=== PATIENT | female | born 1975 | race African-American/Black ===

== ENCOUNTER 2018-11-06 08:59 | Inpatient (IN) | payer MEDICARE, OTHER ==
[~2018-11-06] VITALS: Ht 154.9 cm; Wt 82.2 kg
[~2018-11-06 08:59] MED LIST: CARV3.1210 PO; CHOL500050 PO; CLON1TAB11 PO; FOLI1TAB16 PO; LOSA-73 PO; LURA40TA PO; MAGN400T3 PO; OXYC10TA46 PO; OXYC1TAB19 PO; Pantoprazole PO; RIVA20TA2 PO; SUCR1TAB35 PO; TIZA4CAP3 PO
[2018-11-06] MEDS ORDERED: ASPIRIN CHEWABLE 81 MG TABLET. PO ONE (09:15)
[2018-11-06] MEDS ORDERED: ONDANSETRON PF 4 MG/2 ML VIAL. IV ONE (09:15)
--- NOTE | 2018-11-06 09:26 | PHYS DOC ---
Past Medical History Past Medical History: GERD, Hypertension, Other Additional Past Medical Histor: BLOOD CLOTS IN LUNG AND LEGS Past Surgical History: Cholecystectomy, Tubal ligation, Other Additional Past Surgical Histo: GASTRICV BYPASS, STOMACH SURGERY, ABLAtION Alcohol Use: Occasionally Drug Use: None Adult General Chief Complaint Chief Complaint: CHEST PAIN HPI HPI Patient is a 43-year-old female who presents to the emergency department for evaluation. The patient states that yesterday she began expressing some chest pressure, described as "an elephant sitting on my chest". She also is reporting shortness of breath. The chest discomfort does not radiate. 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 She has a prior history of pulmonary embolism, postoperatively, and states that she had been on Xarelto in the past, although she was taken off of the Xarelto by [facility] during her last visit there several weeks ago. She states the shortness of breath that she began experiencing yesterday feel similar to her prior pulmonary embolus and. She denies any vomiting, black or bloody stools, dizziness or lightheadedness. She has not had any pleuritic chest pain. There are no other alleviating or exacerbating factors to her symptoms, except as noted. Review of Systems Review of Systems Constitutional: Denies fever or chills [] Eyes: Denies change in visual acuity, redness, or eye pain [] HENT: Denies nasal congestion or sore throat [] Respiratory: Denies cough or pleuritic pain [] Cardiovascular: No additional information not addressed in HPI [] GI: Denies abdominal pain, vomiting, bloody stools or diarrhea [] : Denies dysuria or hematuria [] Musculoskeletal: Denies back pain or joint pain [] Integument: Denies rash or skin lesions [] Neurologic: Denies headache, focal weakness or sensory changes [] Endocrine: Denies polyuria or polydipsia [] All other systems were reviewed and found to be within normal limits, except as documented in this note. Current Medications Current Medications Current Medications Medications (Trade) Dose Ordered Sig/Alta Start Time Stop Time Status Last Admin Dose Admin Acetaminophen (Tylenol) 650 mg PRN Q4HRS PRN 11/06/18 13:30 UNV Al Hydroxide/Mg Hydroxide (Mylanta Plus Xs) 30 ml PRN DAILY PRN 11/06/18 13:30 UNV Albuterol Sulfate (Ventolin Neb Soln) 2.5 mg PRN Q4HRS PRN 11/06/18 13:30 UNV Aspirin (Children'S Aspirin) 324 mg 1X ONCE 11/06/18 09:15 11/06/18 09:18 DC 11/06/18 10:44 324 MG Carvedilol (Coreg) 3.125 mg BIDWMEALS 11/06/18 17:00 UNV Clonidine HCl (Catapres) 0.1 mg PRN Q6HRS PRN 11/06/18 13:30 UNV Diphenhydramine HCl (Benadryl) 25 mg PRN Q4HRS PRN 11/06/18 13:30 UNV Docusate Sodium (Colace) 100 mg PRN BID PRN 11/06/18 13:30 UNV Folic Acid (Folic Acid) 1 mg DAILY 11/07/18 09:00 UNV Guaifenesin (Robitussin) 200 mg PRN Q4HRS PRN 11/06/18 13:30 UNV Info (CONTRAST GIVEN -- Rx MONITORING) 1 each PRN DAILY PRN 11/06/18 11:45 11/08/18 11:44 Iohexol (Omnipaque 350 Mg/ml) 100 ml 1X ONCE 11/06/18 11:30 11/06/18 11:33 DC Levofloxacin/ Dextrose 100 ml @ 100 mls/hr 1X ONCE 11/06/18 13:15 11/06/18 14:14 Lorazepam (Ativan) 0.5 mg PRN Q4HRS PRN 11/06/18 13:30 UNV Losartan Potassium (Cozaar) 100 mg DAILY 11/07/18 09:00 UNV Lurasidone HCl (Latuda) 40 mg DAILY 11/07/18 09:00 UNV Morphine Sulfate (Morphine Sulfate) 4 mg PRN Q15MIN PRN 11/06/18 09:15 11/07/18 09:14 11/06/18 13:14 4 MG Non-Formulary Medication (Cholecalciferol (Vitamin D3) (Vitamin D3)) 50,000 unit WEEKLY 11/13/18 09:00 UNV Non-Formulary Medication (Magnesium Oxide ) 250 mg DAILY 11/07/18 09:00 UNV Non-Formulary Medication (Rivaroxaban (Xarelto)) 20 mg DAILY 11/07/18 09:00 UNV Non-Formulary Medication (Sucralfate (Carafate)) 1 gm QIDACHS 11/06/18 16:30 UNV Non-Formulary Medication ([Pantoprazole] ) 40 mg BIDAC 11/06/18 16:30 UNV Ondansetron HCl (Zofran) 4 mg PRN Q4HRS PRN 11/06/18 13:30 UNV Zolpidem Tartrate (Ambien) 5 mg PRN QHS PRN 11/06/18 13:30 UNV Allergies Allergies Allergies Coded Allergies Type Severity Reaction Last Updated Verified banana Allergy Severe SWELLING TO MOUTH AND TONGUE 04/20/18 Yes cephalexin Allergy Severe "SWELLING TO MOUTH" 04/20/18 Yes shrimp Allergy Severe SWELLING TO MOUTH AND TONGUE 04/20/18 Yes fentanyl Allergy Intermediate 07/02/18 Yes Physical Exam Physical Exam PHYSICAL EXAM: CONSTITUTIONAL: Well developed, well nourished HEAD: normocephalic, atraumatic EENT: PERRL, EOMI. Conjunctivae normal color, sclerae non-icteric; moist mucous membranes. NECK: Supple, non-tender; no meningismus. LUNGS: Lungs CTA, breathing even and unlabored. Normal air movement. HEART: Regular rate and rhythm, no murmur CHEST: No deformity; non-tender ABDOMEN: The abdomen is soft, and non-tender, no masses or bruits. EXTREM: Normal ROM; no deformity, no calf tenderness. Normal pulses palpable in all extremities. There is bilateral nonpitting pedal edema. SKIN: No rash; no diaphoresis NEURO: Alert; normal speech and cognition; CN's grossly intact; strength grossly intact without focal deficit. BACK: No CVA TTP. Current Patient Data Vital Signs Vital Signs Date Time Temp Pulse Resp B/P (MAP) Pulse Ox O2 Delivery O2 Flow Rate FiO2 11/06/18 13:00 82 15 125/82 (96) 100 Room Air 11/06/18 09:10 97.7 97.7 Lab Values Laboratory Tests Test 11/06/18 09:54 11/06/18 11:13 11/06/18 12:18 White Blood Count 4.1 x10^3/uL (4.0-11.0) Red Blood Count 4.17 x10^6/uL (3.50-5.40) Hemoglobin 12.4 g/dL (12.0-15.5) Hematocrit 38.8 % (36.0-47.0) Mean Corpuscular Volume 93 fL (79-100) Mean Corpuscular Hemoglobin 30 pg (25-35) Mean Corpuscular Hemoglobin Concent 32 g/dL (31-37) Red Cell Distribution Width 16.4 % (11.5-14.5) H Platelet Count 351 x10^3/uL (140-400) Neutrophils (%) (Auto) 51 % (31-73) Lymphocytes (%) (Auto) 41 % (24-48) Monocytes (%) (Auto) 3 % (0-9) Eosinophils (%) (Auto) 2 % (0-3) Basophils (%) (Auto) 3 % (0-3) Neutrophils # (Auto) 2.1 x10^3uL (1.8-7.7) Lymphocytes # (Auto) 1.7 x10^3/uL (1.0-4.8) Monocytes # (Auto) 0.1 x10^3/uL (0.0-1.1) Eosinophils # (Auto) 0.1 x10^3/uL (0.0-0.7) Basophils # (Auto) 0.1 x10^3/uL (0.0-0.2) Prothrombin Time 15.9 SEC (11.7-14.0) H Prothrombin Time INR 1.3 (0.8-1.1) H Sodium Level 135 mmol/L (136-145) L Potassium Level 3.3 mmol/L (3.5-5.1) L Chloride Level 102 mmol/L (98-107) Carbon Dioxide Level 19 mmol/L (21-32) L Anion Gap 14 (6-14) Blood Urea Nitrogen 9 mg/dL (7-20) Creatinine 0.7 mg/dL (0.6-1.0) Estimated GFR (Cockcroft-Gault) 109.5 BUN/Creatinine Ratio 13 (6-20) Glucose Level 170 mg/dL (70-99) H Calcium Level 7.9 mg/dL (8.5-10.1) L Total Bilirubin 3.0 mg/dL (0.2-1.0) H Aspartate Amino Transferase (AST) 159 U/L (15-37) H Alanine Aminotransferase (ALT) 104 U/L (14-59) H Alkaline Phosphatase 165 U/L (46-116) H Creatine Kinase 135 U/L (26-192) Creatine Kinase MB (Mass) 1.1 ng/mL (0.0-3.6) Creatine Kinase MB Relative Index 0.8 % (0-4) Troponin I Quantitative < 0.017 ng/mL (0.000-0.055) QI-Rur-E-Type Natriuretic Peptide 251 pg/mL (0-124) H Total Protein 5.4 g/dL (6.4-8.2) L Albumin 1.9 g/dL (3.4-5.0) L Albumin/Globulin Ratio 0.5 (1.0-1.7) L Lipase 176 U/L (73-393) Urine Collection Type Unknown Urine Color Olga Urine Clarity Hazy Urine pH 7.0 Urine Specific [place] 1.020 Urine Protein Negative mg/dL (NEG-TRACE) Urine Glucose (UA) Negative mg/dL (NEG) Urine Ketones (Stick) Trace mg/dL (NEG) Urine Blood Negative (NEG) Urine Nitrite Negative (NEG) Urine Bilirubin Large (NEG) Urine Urobilinogen Dipstick 4.0 mg/dL (0.2 mg/dL) Urine Leukocyte Esterase Moderate (NEG) Urine RBC 0 /HPF (0-2) Urine WBC >40 /HPF (0-4) Urine Squamous Epithelial Cells Mod /LPF Urine Bacteria Many /HPF (0-FEW) Urine Hyaline Casts Many /HPF Laboratory Tests 11/06/18 09:54 Laboratory Tests 11/06/18 11:13 EKG EKG [Normal sinus rhythm at a rate of 87 beats for minute, normal axis, normal intervals, nonspecific ST/T changes.] Radiology/Procedures Radiology/Procedures [PROCEDURE: PORTABLE CHEST 1V Single view of the chest. 11/06/2018 9:26 AM Indication: CHEST PAIN Comparison: Chest radiograph July 02, 2018 Findings: There is no focal consolidation. There is no pleural effusion or pneumothorax. The cardiomediastinal silhouette and pulmonary vasculature are within normal limits. Degenerative changes of the left shoulder noted, advanced for age. No acute osseous abnormalities are seen. Impression: No evidence of acute cardiopulmonary process. ] Course & Med Decision Making Course & Med Decision Making Pertinent Labs and Imaging studies reviewed. (See chart for details) [1:30 PM:The patient's condition remains stable. I spoke with the hospitalist , who accepted the patient to the hospital for further evaluation and treatment. The patient's heart rate has been variable between 8-105 bpm. Although pulmonary embolism is on the differential diagnosis it is not considered highly likely at this point.] CTA and she was ordered, but the patient's IV blew before she was injected with IV contrast, and the only IV that could be obtained was an external jugular, so a VQ scan will be needed to definitively rule out pulmonary embolism. This will be followed by the admitting team. The patient's bilirubin elevation is new, she has had similar LFT elevations to her current tests in the past. Dragon Disclaimer Dragon Disclaimer This electronic medical record was generated, in whole or in part, using a voice recognition dictation system. Departure Departure Impression: Primary Impression: Chest pain Additional Impression: Elevated bilirubin Disposition: ADMITTED INPATIENT Admitting Physician: Other (Farella) Condition: STABLE Referrals: UNKNOWN PCP NAME (PCP) Problem Qualifiers KATHARINE NUNO MD Nov 06, 2018 09:26
--- NOTE | 2018-11-06 09:45 | RAD ---
Single view of the chest. 11/06/2018 9:26 AM Indication: CHEST PAIN Comparison: Chest radiograph July 02, 2018 Findings: There is no focal consolidation. There is no pleural effusion or pneumothorax. The cardiomediastinal silhouette and pulmonary vasculature are within normal limits. Degenerative changes of the left shoulder noted, advanced for age. No acute osseous abnormalities are seen. Impression: No evidence of acute cardiopulmonary process. Electronically signed by: Toni Taylor MD (11/06/2018 9:42 AM) [id number]
[2018-11-06 10:07] LABS: BASO # 0.1 x10^3/uL (0.0-0.2); BASO % 3 % (0-3); EOS # 0.1 x10^3/uL (0.0-0.7); EOS % 2 % (0-3); HEMATOCRIT 38.8 % (36.0-47.0); HEMOGLOBIN 12.4 g/dL (12.0-15.5); LYMPH # 1.7 x10^3/uL (1.0-4.8); LYMPH % 41 % (24-48); MEAN CORPUSCULAR HEMOGLOBIN 30 pg (25-35); MEAN CORPUSCULAR HGB CONC 32 g/dL (31-37); MEAN CORPUSCULAR VOLUME 93 fL (79-100); MONO # 0.1 x10^3/uL (0.0-1.1); MONO % 3 % (0-9); NEUT # 2.1 x10^3uL (1.8-7.7); NEUT % 51 % (31-73); PLATELET COUNT 351 x10^3/uL (140-400); RED BLOOD COUNT 4.17 x10^6/uL (3.50-5.40); RED CELL DISTRIBUTION WIDTH 16.4 % (11.5-14.5); WHITE BLOOD COUNT 4.1 x10^3/uL (4.0-11.0)
[2018-11-06] MEDS: MORPHINE SULFATE 4 MG/ML VIAL. IV/SQ PRN ×2 (10:44→13:14)
[2018-11-06] MEDS ORDERED: IOHEXOL 350 MG/ML 100 ML VIAL. IV ONE (11:30)
[2018-11-06 11:41] LABS: PROTHROMBIN TIME PATIENT 15.9 SEC (11.7-14.0)
[2018-11-06 11:42] LABS: CALCIUM 7.9 mg/dL (8.5-10.1); CREATININE 0.7 mg/dL (0.6-1.0); GFR 109.5; POTASSIUM 3.3 mmol/L (3.5-5.1)
[2018-11-06] MEDS ORDERED: CONTRAST GIVEN. MC PRN (11:45)
[2018-11-06 11:49] LABS: ALBUMIN 1.9 g/dL (3.4-5.0); ALBUMIN/GLOBULIN RATIO 0.5 (1.0-1.7); TOTAL PROTEIN 5.4 g/dL (6.4-8.2)
[2018-11-06 12:36] LABS: BILIRUBIN,URINE LARGE (NEG); NITRITE,URINE NEGATIVE (NEG); PROTEIN,URINE NEGATIVE (NEG-TRACE)
[2018-11-06 12:43] LABS: CLARITY,URINE HAZY; COLOR,URINE AMBER
[2018-11-06 12:44] LABS: HYALINE CASTS, URINE MANY /HPF; SQUAMOUS EPITHELIAL CELL,UR MOD /LPF
[2018-11-06 12:45] LABS: BACTERIA,URINE MANY /HPF (0-FEW); RBC,URINE 0 /HPF (0-2); WBC,URINE >40 /HPF (0-4)
[2018-11-06] MEDS ORDERED: LORazepam 0.5 MG TABLET PO PRN (13:30)
[2018-11-06] MEDS ORDERED: ACETAMINOPHEN 325 MG TABLET. PO PRN (13:30)
[2018-11-06] MEDS ORDERED: MAG HYDROX/ALUMINUM HYD/SIMETH 30 ML ORAL.SUSP PO PRN (13:30)
[2018-11-06] MEDS ORDERED: diphenhydrAMINE 50 MG/ML VIAL IVP PRN (13:30)
--- NOTE | 2018-11-06 14:40 | PDOC2 ---
BERTA THORPE WILDLIFE TECHNICIAN 11/06/18 1440: CARDIAC CONSULT DATE OF CONSULT Date of Consult DATE: 11/06/18 TIME: 14:15 REASON FOR CONSULT Reason for Consult: Chest pain REFERRING PHYSICIAN Referring Physician: Bea SOURCE Source: Chart review, Patient HISTORY OF PRESENT ILLNESS HISTORY OF PRESENT ILLNESS This is a 43 yo female admitted for complains of chest pain. Reports that she eats once a day and that in the last 2 weeks she has been vomiting even when taking her medications. She has not been able to keep anything down in her stomach for about 2 weeks now. Yesterday morning she woke up with midchest pressure and was SOA. No dizziness or passing out. Verbalized that she has been weak. No jaw tightness or arm discomfort. She is significant for PE and DVT from last yr and also had ulcer in her anastomotic region of her gastric bypass. No prior hx of CAD or arrhythmias. Per hx she has IVC filter and xarelto was taken off few ago and being followed closely by [facility]. PAST MEDICAL HISTORY Past Medical History Cardiovascular: HTN Pulmonary: Pulmonary embolus (past DVT) CENTRAL NERVOUS SYSTEM: Other (None) GI: Peptic Ulcer disease, GERD, protein malnutrition Heme/Onc: Other (chornic anticoagulation) Hepatobiliary: Cholelithiasis, transaminitis Psych: No pertinent hx Musculoskeletal: Other (morbid obesity) Rheumatologic: No pertinent hx Infectious disease: Other (MRSA) ENT: No pertinent hx Renal/: No pertinent hx Endocrine: Diabetes last A1C 6.3 Dermatology: No pertinent hx PAST SURGICAL HISTORY Past Surgical History S/p dorcas-en-Y bypass Past Surgical History: Cholecystectomy, Tubal Ligation FAMILY HISTORY Family History Coronary Artery Disease (father CT at 50s) SOCIAL HISTORY Smoke: No ALCOHOL: none Drugs: None Lives: with Family CURRENT MEDICATIONS CURRENT MEDICATIONS Current Medications Medications (Trade) Dose Ordered Sig/Alta Route PRN Reason Start Time Stop Time Status Last Admin Dose Admin Aspirin (Children'S Aspirin) 324 mg 1X ONCE PO 11/06/18 09:15 11/06/18 09:18 DC 11/06/18 10:44 Morphine Sulfate (Morphine Sulfate) 4 mg PRN Q15MIN PRN IV/SQ PAIN GREATER THAN /10 11/06/18 09:15 11/07/18 09:14 11/06/18 13:14 Ondansetron HCl (Zofran) 4 mg 1X ONCE IV 11/06/18 09:15 11/06/18 09:18 DC 11/06/18 10:44 ALLERGIES ALLERGIES: Coded Allergies: banana (Verified Allergy, Severe, SWELLING TO MOUTH AND TONGUE, 04/20/18) cephalexin (Verified Allergy, Severe, "SWELLING TO MOUTH", 04/20/18) shrimp (Verified Allergy, Severe, SWELLING TO MOUTH AND TONGUE, 04/20/18) fentanyl (Verified Allergy, Intermediate, 07/02/18) ROS Review of System 14 point ROS evaluated with pertinent positives noted per HPI PHYSICAL EXAM General: Alert, Oriented X3, Cooperative, No acute distress HEENT: Atraumatic, Mucous membr. moist/pink Lungs: Clear to auscultation, Normal air movement Heart: Regular rate (SR), Normal S1, Normal S2, Other (2/6 systolic murmur to LLS border) Abdomen: Soft, No tenderness Extremities: No cyanosis, No edema Skin: No breakdown Neuro: Normal speech, Sensation intact Psych/Mental Status: Mental status NL, Mood NL MUSCULOSKELETAL: Osteoarthritic changes both hands VITALS VITALS Vital Signs Date Time Temp Pulse Resp B/P (MAP) Pulse Ox O2 Delivery O2 Flow Rate FiO2 11/06/18 13:00 82 15 125/82 (96) 100 Room Air 11/06/18 09:10 97.7 97.7 LABS Lab: Laboratory Tests Test 11/06/18 09:54 11/06/18 11:13 11/06/18 12:18 White Blood Count 4.1 x10^3/uL (4.0-11.0) Red Blood Count 4.17 x10^6/uL (3.50-5.40) Hemoglobin 12.4 g/dL (12.0-15.5) Hematocrit 38.8 % (36.0-47.0) Mean Corpuscular Volume 93 fL (79-100) Mean Corpuscular Hemoglobin 30 pg (25-35) Mean Corpuscular Hemoglobin Concent 32 g/dL (31-37) Red Cell Distribution Width 16.4 % (11.5-14.5) Platelet Count 351 x10^3/uL (140-400) Neutrophils (%) (Auto) 51 % (31-73) Lymphocytes (%) (Auto) 41 % (24-48) Monocytes (%) (Auto) 3 % (0-9) Eosinophils (%) (Auto) 2 % (0-3) Basophils (%) (Auto) 3 % (0-3) Neutrophils # (Auto) 2.1 x10^3uL (1.8-7.7) Lymphocytes # (Auto) 1.7 x10^3/uL (1.0-4.8) Monocytes # (Auto) 0.1 x10^3/uL (0.0-1.1) Eosinophils # (Auto) 0.1 x10^3/uL (0.0-0.7) Basophils # (Auto) 0.1 x10^3/uL (0.0-0.2) Prothrombin Time 15.9 SEC (11.7-14.0) Prothromb Time International Ratio 1.3 (0.8-1.1) Sodium Level 135 mmol/L (136-145) Potassium Level 3.3 mmol/L (3.5-5.1) Chloride Level 102 mmol/L (98-107) Carbon Dioxide Level 19 mmol/L (21-32) Anion Gap 14 (6-14) Blood Urea Nitrogen 9 mg/dL (7-20) Creatinine 0.7 mg/dL (0.6-1.0) Estimated GFR (Cockcroft-Gault) 109.5 BUN/Creatinine Ratio 13 (6-20) Glucose Level 170 mg/dL (70-99) Calcium Level 7.9 mg/dL (8.5-10.1) Total Bilirubin 3.0 mg/dL (0.2-1.0) Aspartate Amino Transf (AST/SGOT) 159 U/L (15-37) Alanine Aminotransferase (ALT/SGPT) 104 U/L (14-59) Alkaline Phosphatase 165 U/L (46-116) Creatine Kinase 135 U/L (26-192) Creatine Kinase MB (Mass) 1.1 ng/mL (0.0-3.6) Creatine Kinase MB Relative Index 0.8 % (0-4) Troponin I Quantitative < 0.017 ng/mL (0.000-0.055) VD-Eij-A-Type Natriuretic Peptide 251 pg/mL (0-124) Total Protein 5.4 g/dL (6.4-8.2) Albumin 1.9 g/dL (3.4-5.0) Albumin/Globulin Ratio 0.5 (1.0-1.7) Lipase 176 U/L (73-393) Urine Collection Type Unknown Urine Color Olga Urine Clarity Hazy Urine pH 7.0 Urine Specific [place] 1.020 Urine Protein Negative mg/dL (NEG-TRACE) Urine Glucose (UA) Negative mg/dL (NEG) Urine Ketones (Stick) Trace mg/dL (NEG) Urine Blood Negative (NEG) Urine Nitrite Negative (NEG) Urine Bilirubin Large (NEG) Urine Urobilinogen Dipstick 4.0 mg/dL (0.2 mg/dL) Urine Leukocyte Esterase Moderate (NEG) Urine RBC 0 /HPF (0-2) Urine WBC >40 /HPF (0-4) Urine Squamous Epithelial Cells Mod /LPF Urine Bacteria Many /HPF (0-FEW) Urine Hyaline Casts Many /HPF ECHOCARDIOGRAM ECHOCARDIOGRAM <Conclusion> The left ventricular systolic function is normal. The Ejection Fraction is 60-65%. There is normal LV segmental wall motion. Trace tricuspid valve regurgitation. There is no evidence of significant pericardial effusion. DATE: 04/19/18 1014 ASSESSMENT/PLAN ASSESSMENT/PLAN 1. Chest pain: trop nml. EKG SR no changes. Doubt ACS. Possibly GI with potential PE 2. Persistent vomiting (2 weeks) with Hx of Dorcas-en-Y w/ anastomotic ulcer ( noted on 03/2018 via EGD) 3. Abnormal V/Q scan: has IVC filter per hx. 4. Hepatic steatosis with persistent transaminitis 5. Chronic protein malnutrition 6. UTI? 7. Hx of PE/DVT(LE): (DVT last noted bilaterally on (06/2018) Recommendations 1. V/Q done to failed IV access, CTA chest now pending. 2. Limited TTE and note EF and RV 3. Consult GI. Empiric heparin per pulmonary LUCIA DENG MD 11/06/18 2350: CARDIAC CONSULT ASSESSMENT/PLAN ASSESSMENT/PLAN Pt. seen and examined. Agree with above FLUMER note. Non-cardiac chest pain. normal EF by echo, no effusion Intermediate PE with DVT's and prior IVC filter. Supportive care from CV standpoint. Await CT chest, although this may provide diagnosis, may not change mgmt. Will follow along BERTA THORPE APRN Nov 06, 2018 14:40 LUCIA DENG MD Nov 06, 2018 23:50
--- NOTE | 2018-11-06 14:45 | PDOC1 ---
History and Physical Date of Admission Date of Admission November 06, 2018 Identification/Chief Complaint Chief Complaint My chest hurbritney Source Source: Chart review, Patient History of Present Illness History of Present Illness Patient is a 43-year-old female with past medical history of pulmonary embolism who is currently not on anticoagulation. She was in her usual state of health until the day prior to her admission when she started complaining of midsternal chest discomfort. The patient denied any radiation to the jaw or the arm. The patient denied palpitations no shortness of breath has been reported no syncopal episodes no nausea vomiting or sensation of impending doom was reported by the patient and the beginning of her discomfort. The patient was sitting and not performing strenuous exercises at the beginning of her symptoms. The episodes have been on and off over the last 24 hours at 10-15 minute intervals. The patient denies recent upper respiratory tract infection symptoms no coughing no sneezing no cold-like symptoms no neck stiffness no headache no blurred vision has been reported. Of noticed that patient has a history of gastric bypass and has as a consequence unfortunately GERD. The patient was diagnosed with a left lower extremity thrombosis in . She also was told that she had pulmonary emboli at that institution and she gives history of having an IVC filter that she places up in her heart. When asked about this she said that this was placed at . Unfortunately don't have records for review. At the time my evaluation the patient is in no apparent distress, she got concerned and home since the symptoms felt ramus is same as her episode where she was diagnosed with a thrombosis requiring anticoagulation. She has not been on Xarelto for at least 2 months. No acute distress at the time my evaluation is noted. She is being admitted the request of the ER for evaluation of this chest discomfort, serendipitously the patient was found to have a slightly elevated d-dimer which (CT angiogram by the ER physician unfortunately patient was not able to complete testing she is not hypoxemic another serendipitous finding was mildly elevation of bilirubin to 3 her transaminitis was pretty much her baseline and actually somewhat improved compared to previous visits to our institution. Most likely is a consequence of her body habitus Past Medical History Cardiovascular: HTN Pulmonary: Pulmonary embolus CENTRAL NERVOUS SYSTEM: Other GI: Peptic Ulcer disease Heme/Onc: Other Hepatobiliary: Cholelithiasis Psych: No pertinent hx Rheumatologic: No pertinent hx Infectious disease: Other Renal/: No pertinent hx Past Surgical History Past Surgical History: , Other Family History Family History: Coronary Artery Disease Family History: Parent Social History Smoke: No ALCOHOL: none Drugs: None Current Problem List Problem List Problems Medical Problems: (1) Chest pain Status: Acute (2) Elevated bilirubin Status: Acute Current Medications Current Medications Current Medications Medications (Trade) Dose Ordered Sig/Alta Start Time Stop Time Status Last Admin Dose Admin Acetaminophen (Tylenol) 650 mg PRN Q4HRS PRN 11/06/18 13:30 Al Hydroxide/Mg Hydroxide (Mylanta Plus Xs) 30 ml PRN DAILY PRN 11/06/18 13:30 Albuterol Sulfate (Ventolin Neb Soln) 2.5 mg PRN Q4HRS PRN 11/06/18 13:30 Aspirin (Children'S Aspirin) 324 mg 1X ONCE 11/06/18 09:15 11/06/18 09:18 DC 11/06/18 10:44 324 MG Carvedilol (Coreg) 3.125 mg BIDWMEALS 11/06/18 17:00 Clonidine HCl (Catapres) 0.1 mg PRN Q6HRS PRN 11/06/18 13:30 Diphenhydramine HCl (Benadryl) 25 mg PRN Q4HRS PRN 11/06/18 13:30 Docusate Sodium (Colace) 100 mg PRN BID PRN 11/06/18 13:30 Ergocalciferol (Vitamin D2) 50,000 unit WEEKLY 11/06/18 15:00 Folic Acid (Folic Acid) 1 mg DAILY 11/06/18 15:00 Guaifenesin (Robitussin) 200 mg PRN Q4HRS PRN 11/06/18 13:30 Info (Anti-Coagulation Monitoring By Pharmacy) 1 each PRN DAILY PRN 11/06/18 14:15 Info (CONTRAST GIVEN -- Rx MONITORING) 1 each PRN DAILY PRN 11/06/18 11:45 11/08/18 11:44 Iohexol (Omnipaque 350 Mg/ml) 100 ml 1X ONCE 11/06/18 11:30 11/06/18 11:33 DC Levofloxacin/ Dextrose 100 ml @ 100 mls/hr 1X ONCE 11/06/18 13:15 11/06/18 14:14 DC Lorazepam (Ativan) 0.5 mg PRN Q4HRS PRN 11/06/18 13:30 Losartan Potassium (Cozaar) 100 mg DAILY 11/06/18 15:00 Lurasidone HCl (Latuda) 40 mg DAILY 11/06/18 15:00 Magnesium Oxide (Magnesium Oxide) 200 mg DAILY 11/06/18 15:00 Morphine Sulfate (Morphine Sulfate) 4 mg PRN Q15MIN PRN 11/06/18 09:15 11/07/18 09:14 11/06/18 13:14 4 MG Ondansetron HCl (Zofran) 4 mg PRN Q4HRS PRN 11/06/18 13:30 Pantoprazole Sodium (Protonix) 40 mg BIDAC 11/06/18 16:30 Rivaroxaban (Xarelto) 20 mg DAILYWSUP 11/06/18 17:00 Sucralfate (Carafate) 1 gm QIDACHS 11/06/18 16:30 Zolpidem Tartrate (Ambien) 5 mg PRN QHS PRN 11/06/18 13:30 Allergies Allergies Allergies Coded Allergies Type Severity Reaction Last Updated Verified banana Allergy Severe SWELLING TO MOUTH AND TONGUE 04/20/18 Yes cephalexin Allergy Severe "SWELLING TO MOUTH" 04/20/18 Yes shrimp Allergy Severe SWELLING TO MOUTH AND TONGUE 04/20/18 Yes fentanyl Allergy Intermediate 07/02/18 Yes ROS Review of System CONSTITUTIONAL: No fever or chills EYES: No recent changes SKIN: No rash or itching CARDIOVASCULAR: Pertinent for chest pain, no syncope, palpitations, or edema RESPIRATORY: No SOB or cough GASTROINTESTINAL: No nausea, vomiting or abdominal pain NEUROLOGICAL: No headaches or weakness ENDOCRINE: No cold or heat intolerance GENITOURINARY: No urgency or frequency of urination MUSCULOSKELETAL: No back pain or joint pain LYMPHATICS: No enlarged lymph nodes PSYCHIATRIC: No anxiety or depression Physical Exam Physical Exam GEN.: No apparent distress. Alert and oriented. HEENT: Head is normocephalic, atraumatic NECK: Supple. LUNGS: Clear to auscultation. HEART: RRR, S1, S2 present. Peripheral pulses intact ABDOMEN: Soft, nontender. Positive bowel sounds. EXTREMITIES: Without any cyanosis. NEUROLOGIC: Normal speech, normal tone PSYCHIATRIC: Normal affect, normal mood. SKIN: No ulcerations Vitals Vitals Vital Signs Date Time Temp Pulse Resp B/P (MAP) Pulse Ox O2 Delivery O2 Flow Rate FiO2 11/06/18 14:00 86 14 118/76 (90) 98 Room Air 11/06/18 09:10 97.7 97.7 Labs Labs Laboratory Tests Test 11/06/18 09:54 11/06/18 11:13 11/06/18 12:18 White Blood Count 4.1 x10^3/uL (4.0-11.0) Red Blood Count 4.17 x10^6/uL (3.50-5.40) Hemoglobin 12.4 g/dL (12.0-15.5) Hematocrit 38.8 % (36.0-47.0) Mean Corpuscular Volume 93 fL (79-100) Mean Corpuscular Hemoglobin 30 pg (25-35) Mean Corpuscular Hemoglobin Concent 32 g/dL (31-37) Red Cell Distribution Width 16.4 % (11.5-14.5) Platelet Count 351 x10^3/uL (140-400) Neutrophils (%) (Auto) 51 % (31-73) Lymphocytes (%) (Auto) 41 % (24-48) Monocytes (%) (Auto) 3 % (0-9) Eosinophils (%) (Auto) 2 % (0-3) Basophils (%) (Auto) 3 % (0-3) Neutrophils # (Auto) 2.1 x10^3uL (1.8-7.7) Lymphocytes # (Auto) 1.7 x10^3/uL (1.0-4.8) Monocytes # (Auto) 0.1 x10^3/uL (0.0-1.1) Eosinophils # (Auto) 0.1 x10^3/uL (0.0-0.7) Basophils # (Auto) 0.1 x10^3/uL (0.0-0.2) Prothrombin Time 15.9 SEC (11.7-14.0) Prothromb Time International Ratio 1.3 (0.8-1.1) Sodium Level 135 mmol/L (136-145) Potassium Level 3.3 mmol/L (3.5-5.1) Chloride Level 102 mmol/L (98-107) Carbon Dioxide Level 19 mmol/L (21-32) Anion Gap 14 (6-14) Blood Urea Nitrogen 9 mg/dL (7-20) Creatinine 0.7 mg/dL (0.6-1.0) Estimated GFR (Cockcroft-Gault) 109.5 BUN/Creatinine Ratio 13 (6-20) Glucose Level 170 mg/dL (70-99) Calcium Level 7.9 mg/dL (8.5-10.1) Total Bilirubin 3.0 mg/dL (0.2-1.0) Aspartate Amino Transf (AST/SGOT) 159 U/L (15-37) Alanine Aminotransferase (ALT/SGPT) 104 U/L (14-59) Alkaline Phosphatase 165 U/L (46-116) Creatine Kinase 135 U/L (26-192) Creatine Kinase MB (Mass) 1.1 ng/mL (0.0-3.6) Creatine Kinase MB Relative Index 0.8 % (0-4) Troponin I Quantitative < 0.017 ng/mL (0.000-0.055) BC-Lgk-J-Type Natriuretic Peptide 251 pg/mL (0-124) Total Protein 5.4 g/dL (6.4-8.2) Albumin 1.9 g/dL (3.4-5.0) Albumin/Globulin Ratio 0.5 (1.0-1.7) Lipase 176 U/L (73-393) Urine Collection Type Unknown Urine Color Olga Urine Clarity Hazy Urine pH 7.0 Urine Specific [place] 1.020 Urine Protein Negative mg/dL (NEG-TRACE) Urine Glucose (UA) Negative mg/dL (NEG) Urine Ketones (Stick) Trace mg/dL (NEG) Urine Blood Negative (NEG) Urine Nitrite Negative (NEG) Urine Bilirubin Large (NEG) Urine Urobilinogen Dipstick 4.0 mg/dL (0.2 mg/dL) Urine Leukocyte Esterase Moderate (NEG) Urine RBC 0 /HPF (0-2) Urine WBC >40 /HPF (0-4) Urine Squamous Epithelial Cells Mod /LPF Urine Bacteria Many /HPF (0-FEW) Urine Hyaline Casts Many /HPF Laboratory Tests Test 11/06/18 09:54 11/06/18 11:13 11/06/18 12:18 White Blood Count 4.1 x10^3/uL (4.0-11.0) Red Blood Count 4.17 x10^6/uL (3.50-5.40) Hemoglobin 12.4 g/dL (12.0-15.5) Hematocrit 38.8 % (36.0-47.0) Mean Corpuscular Volume 93 fL (79-100) Mean Corpuscular Hemoglobin 30 pg (25-35) Mean Corpuscular Hemoglobin Concent 32 g/dL (31-37) Red Cell Distribution Width 16.4 % (11.5-14.5) Platelet Count 351 x10^3/uL (140-400) Neutrophils (%) (Auto) 51 % (31-73) Lymphocytes (%) (Auto) 41 % (24-48) Monocytes (%) (Auto) 3 % (0-9) Eosinophils (%) (Auto) 2 % (0-3) Basophils (%) (Auto) 3 % (0-3) Neutrophils # (Auto) 2.1 x10^3uL (1.8-7.7) Lymphocytes # (Auto) 1.7 x10^3/uL (1.0-4.8) Monocytes # (Auto) 0.1 x10^3/uL (0.0-1.1) Eosinophils # (Auto) 0.1 x10^3/uL (0.0-0.7) Basophils # (Auto) 0.1 x10^3/uL (0.0-0.2) Prothrombin Time 15.9 SEC (11.7-14.0) Prothromb Time International Ratio 1.3 (0.8-1.1) Sodium Level 135 mmol/L (136-145) Potassium Level 3.3 mmol/L (3.5-5.1) Chloride Level 102 mmol/L (98-107) Carbon Dioxide Level 19 mmol/L (21-32) Anion Gap 14 (6-14) Blood Urea Nitrogen 9 mg/dL (7-20) Creatinine 0.7 mg/dL (0.6-1.0) Estimated GFR (Cockcroft-Gault) 109.5 BUN/Creatinine Ratio 13 (6-20) Glucose Level 170 mg/dL (70-99) Calcium Level 7.9 mg/dL (8.5-10.1) Total Bilirubin 3.0 mg/dL (0.2-1.0) Aspartate Amino Transf (AST/SGOT) 159 U/L (15-37) Alanine Aminotransferase (ALT/SGPT) 104 U/L (14-59) Alkaline Phosphatase 165 U/L (46-116) Creatine Kinase 135 U/L (26-192) Creatine Kinase MB (Mass) 1.1 ng/mL (0.0-3.6) Creatine Kinase MB Relative Index 0.8 % (0-4) Troponin I Quantitative < 0.017 ng/mL (0.000-0.055) EG-Kqz-I-Type Natriuretic Peptide 251 pg/mL (0-124) Total Protein 5.4 g/dL (6.4-8.2) Albumin 1.9 g/dL (3.4-5.0) Albumin/Globulin Ratio 0.5 (1.0-1.7) Lipase 176 U/L (73-393) Urine Collection Type Unknown Urine Color Olga Urine Clarity Hazy Urine pH 7.0 Urine Specific [place] 1.020 Urine Protein Negative mg/dL (NEG-TRACE) Urine Glucose (UA) Negative mg/dL (NEG) Urine Ketones (Stick) Trace mg/dL (NEG) Urine Blood Negative (NEG) Urine Nitrite Negative (NEG) Urine Bilirubin Large (NEG) Urine Urobilinogen Dipstick 4.0 mg/dL (0.2 mg/dL) Urine Leukocyte Esterase Moderate (NEG) Urine RBC 0 /HPF (0-2) Urine WBC >40 /HPF (0-4) Urine Squamous Epithelial Cells Mod /LPF Urine Bacteria Many /HPF (0-FEW) Urine Hyaline Casts Many /HPF VTE Prophylaxis Ordered VTE Prophylaxis Devices: Yes VTE Pharmacological Prophylaxi: Yes Assessment/Plan Assessment/Plan Chest pain rule out acute coronary syndrome History of pulmonary embolism last year currently off anticoagulation History of IVC filter placement Obesity with BMI of 34 Transaminitis most likely secondary to steatohepatitis Mild bilirubinemia Hypokalemia and hyponatremia Plan: Admit patient to the recovery vascular floor Trend troponins We have ordered an echocardiogram to assess for LV dysfunction Resume home medications follow labs in the morning Repeat labs in the a.m. Resume home medications once available for review DVT prophylaxis with heparin COY HOLDEN MD Nov 06, 2018 14:45
[2018-11-06] MEDS: LURASIDONE 40 MG TABLET. PO SCH (15:00)
[2018-11-06] MEDS: LOSARTAN POTASSIUM 50 MG TABLET. PO SCH (15:00)
[2018-11-06] MEDS: ERGOCALCIFEROL (VITAMIN D2) 50,000 UNIT CAPSULE. PO SCH (15:00)
[2018-11-06] MEDS ORDERED: POTASSIUM CHLORIDE 20 MEQ/15 ML ORAL LIQUID. PEG ONE (15:00)
[2018-11-06] MEDS: MAGNESIUM OXIDE 400 MG TABLET PO SCH (15:00)
[2018-11-06] MEDS: FOLIC ACID 1 MG TABLET. PO SCH (15:00)
--- NOTE | 2018-11-06 15:08 | RAD ---
NUCLEAR MEDICINE VENTILATION PERFUSION SCAN History: Dyspnea, history of DVT. Comparison: AP chest, earlier same day. VQ scan 07/03/2018. Technique: Patient initially ventilated with 25 mCi of xenon-133 gas. Anterior and posterior imaging of the lungs during initial breath-hold, equilibrium and, washout phase images is performed. Perfusion portion performed after intravenous administration of 5.5 mCi Technetium 99m MAA. Multiple projection planar images of the lungs were obtained. Findings: The initial breath-hold ventilation images are relatively homogeneous. Image appears count poor. There is no retention of tracer on the washout phase images. Perfusion images are homogeneous. There is a moderate-sized mismatched segmental perfusion defect in the superior segment of the left lower lobe. This defect was present on prior study and may be chronic. This suggests the possibility of acute pulmonary embolus is less likely. IMPRESSION: Intermediate probability for pulmonary embolus. Please see above discussion. Electronically signed by: Vic Marlow MD (11/06/2018 3:05 PM) [id number]
[2018-11-06 15:54] VITALS: BP 123/73
--- NOTE | 2018-11-06 16:02 | EKG ---
[address] [place] [address] Test Date: 2018-11-06 Test Time: 09:25:56 Pat Name: MADELEINE HELM Department: Room: 262 1 Gender: F Record Changer: : 1975 Requested By: KATHARINE NUNO Order Number: [id number] Reading MD: Alverto Araujo MD Measurements Intervals [place] Rate: 87 P: 34 HI: 144 QRS: 5 QRSD: 86 T: -14 QT: 388 QTc: 467 Interpretive Statements SINUS RHYTHM NON-SPECIFIC ST/T CHANGES Electronically Signed On 11-10-2018 13:10:54 CDT by Alverto Araujo MD
[2018-11-06] MEDS ORDERED: HEPARIN for IV BOLUS 10,000 UNIT/10 ML VIAL. IV ONE (16:30)
[2018-11-06] MEDS ORDERED: HEPARIN 25,000UTS/500ML PREMIX 500 ML IV PRN ×2 (16:30)
[2018-11-06] MEDS ORDERED: HEPARIN for IV BOLUS 10,000 UNIT/10 ML VIAL. IV PRN ×2 (16:30)
[2018-11-06] MEDS ORDERED: RIVAROXABAN 10 MG TABLET. PO SCH (17:00)
[2018-11-06] MEDS: CARVEDILOL 3.125 MG TABLET. PO SCH (17:09)
[2018-11-06] MEDS: SUCRALFATE 1 GM TABLET. PO SCH ×2 (17:09→21:00)
[2018-11-06] MEDS: PANTOPRAZOLE 40 MG TABLET.DR. PO SCH (17:09)
[2018-11-06] MEDS: ONDANSETRON PF 4 MG/2 ML VIAL. IV PRN (17:10)
[2018-11-06 19:50] VITALS: BP 155/90
[2018-11-06] MEDS: MORPHINE SULFATE 2 MG/ML VIAL. IV PRN ×2 (20:17→23:58)
[2018-11-06 22:45] VITALS: BP 118/81
--- NOTE | 2018-11-06 22:55 | RAD ---
CHEST AP ONLY History: PICC PLACEMENT Comparison: Exam earlier the same day Findings: Single view of the chest is submitted. There is now a right upper extremity PICC with the tip in the region of the mid aspect of the superior vena cava. There is no pneumothorax or fluid, lobar infiltrate. Heart size is stable. Impression: 1. There is now a right upper extremity PICC. Electronically signed by: Feliciano Salazar MD (11/06/2018 10:52 PM) [facility]
--- NOTE | 2018-11-06 23:25 | RAD ---
Bilateral Lower Extremity Venous Doppler Ultrasound History: Possible PE leg swelling history of prior DVT patient on blood thinners Comparison: None Procedure: Color flow, duplex, spectral analysis and 2D images are obtained with and without compression in the area of the common femoral vein, superficial femoral vein - femoral vein junction, main femoral vein (superficial femoral vein) and popliteal vein. Veins of the proximal calf are also imaged. Findings: The study is technically limited by large body habitus. There is a duplicated SFV on the right mid and distal. There is a nonocclusive thrombus in the one of the 2 right distal SFV and right popliteal vein. There is nonocclusive thrombus in the left SFA distally and in the popliteal vein. There is normal duplex flow, color flow and compressibility of all remaining visualized vein segments. Impression: Study is positive for bilateral DVTs. Electronically signed by: Dusty Colon III, MD (11/06/2018 11:22 PM) [facility]
[2018-11-07 01:12] LABS: BILIRUBIN,URINE MODERATE (NEG); CLARITY,URINE CLEAR; COLOR,URINE AMBER; NITRITE,URINE POSITIVE (NEG); PH,URINE 7.5; PROTEIN,URINE NEGATIVE (NEG-TRACE)
[2018-11-07 01:21] LABS: BACTERIA,URINE MANY /HPF (0-FEW); RBC,URINE 0 /HPF (0-2); SQUAMOUS EPITHELIAL CELL,UR FEW /LPF
--- NOTE | 2018-11-07 01:53 | RAD ---
INDICATION: SOB; EVAL FOR PE; OMNI 350, 75ML COMPARISON: March 2018 TECHNIQUE: Axial CT images obtained through the chest. Intravenous contrast utilized. Angiogram 3D images processed per protocol. One or more of the following individualized dose reduction techniques were utilized for this examination: 1. Automated exposure control; 2. Adjustment of the mA and/or kV according to patient size; 3. Use of iterative reconstruction technique. FINDINGS: Partially visualized liver is very low density. Partial visualization of inferior vena cava filter. Postoperative changes to the stomach. Portion of ascending thoracic aorta is obscured by motion but no aneurysm seen in visualized portions. Degenerative changes the spine. Mild patchy groundglass opacity left upper lung. No evidence of pneumothorax. Severe degenerative changes left shoulder. There are some linear filling defects in the bilateral pulmonary arteries. IMPRESSION: Repeat demonstration of some linear filling defects in the bilateral pulmonary arteries which could be secondary to old recanalized embolus. Liver is low-attenuation. Nonspecific but can be seen with fatty infiltration. Mild patchy groundglass opacity in left lung. Could be secondary to small airway inflammation Electronically signed by: Fab Rand MD (11/07/2018 1:50 AM) [facility]
[2018-11-07] MEDS ORDERED: IOHEXOL 350 MG/ML 100 ML VIAL. ONE (02:38)
[2018-11-07 02:47] VITALS: BP 123/81
[2018-11-07] MEDS: MORPHINE SULFATE 2 MG/ML VIAL. IV PRN ×5 (03:54→23:48)
[2018-11-07 07:37] VITALS: BP 186/95
[2018-11-07] MEDS: FOLIC ACID 1 MG TABLET. PO SCH (08:21)
[2018-11-07] MEDS: MAGNESIUM OXIDE 400 MG TABLET PO SCH (08:21)
[2018-11-07] MEDS: LOSARTAN POTASSIUM 50 MG TABLET. PO SCH (08:21)
[2018-11-07] MEDS: CARVEDILOL 3.125 MG TABLET. PO SCH ×2 (08:21→18:19)
[2018-11-07] MEDS: SUCRALFATE 1 GM TABLET. PO SCH ×5 (08:22→20:58)
[2018-11-07] MEDS: PANTOPRAZOLE 40 MG TABLET.DR. PO SCH ×2 (08:22→18:20)
[2018-11-07] MEDS: LURASIDONE 40 MG TABLET. PO SCH (08:22)
--- NOTE | 2018-11-07 08:22 | RAD ---
Indication:Nausea, vomiting TRANSAMINITIS TECHNIQUE: Grayscale, color Doppler and spectral waveform is of the abdomen obtained. COMPARISON:None FINDINGS: Pancreas is not visualized during bowel gas. IVC is patent. Main portal vein is patent. Liver is mildly enlarged measuring 19 cm in craniocaudal dimension with diffusely increased echogenicity and decreased through transmission. CBD is suboptimally visualized but approximately measures 6 mm in diameter. Status post cholecystectomy. Right kidney measures 11 cm in length without hydronephrosis. Spleen measures 7.5 cm in length and is normal in size. Left kidney is not visualized due to overlying bowel gas. IMPRESSION: 1. Mild hepatomegaly with hepatic steatosis. Electronically signed by: Domo Tovar DO (11/07/2018 8:19 AM) [facility]
[2018-11-07] MEDS: ONDANSETRON PF 4 MG/2 ML VIAL. IV PRN ×2 (08:24→18:20)
--- NOTE | 2018-11-07 10:01 | CONS ---
DATE OF CONSULTATION: ATTENDING PHYSICIAN: Dr. Figueredo. REASON FOR CONSULTATION: Pulmonary embolism. HISTORY OF PRESENT ILLNESS: The patient is a 43-year-old female who has history of pulmonary embolism and DVT. According to her history, she said it was diagnosed at in June of last year after her gastric bypass surgery. The patient states that she has been followed over there and she was on Xarelto until 2 months ago when she stopped it. She has an IVC filter. When I asked her the reason for putting the IVC filter, she was not so clear, but it appears that it may be related to GI bleed and she probably had an anastomotic ulcer after her bypass surgery. The patient was brought into the hospital with complaint of some chest discomfort, which was midsternal. She says she has not been eating well and her appetite is lot less, as a result she is weak and not ambulating well either. She denies any significant shortness of breath. No cough, no fever, no chills. No lower extremity swelling. She underwent imaging study, which initially had a V/Q scan, which showed a mismatch moderate size perfusion defect in the superior segment of the left lower lobe. Her venous Dopplers of the lower extremity showed nonocclusive thrombus on the right as well as on the left lower extremity. She then underwent CTA chest, which was reviewed by me with the radiologist and it shows again an unchanged linear filling defects in the bilateral pulmonary arteries distally. The patient was started on heparin. I have been asked to see her for further evaluation. She denies any history of hormone replacement. She has no history of known cancers. PAST MEDICAL HISTORY: History of pulmonary embolism, history of DVT, history of IVC filter. No hypercoagulable state. History of peptic ulcer disease. PAST SURGICAL HISTORY: and gastric bypass surgery. REVIEW OF SYSTEMS: Twelve-point system obtained. Pertinent positives discussed in my history of present illness, otherwise noncontributory. All systems that were negative were reviewed as well. SOCIAL HISTORY: Denies any tobacco use. MEDICATIONS: All reviewed, as listed in the MRAD. PHYSICAL EXAMINATION: VITAL SIGNS: Stable except for blood pressure on the high side. Pulse ox 95% on room air, afebrile. HEENT: Sclerae nonicteric. NECK: Supple. LUNGS: Clear. CARDIOVASCULAR: Regular rate. ABDOMEN: Soft, obese. EXTREMITIES: With no pitting edema. LABORATORY DATA: Reviewed. White cell count 4.1, hemoglobin 12.4. BUN is 9 and creatinine 0.7. IMPRESSION: 1. The patient with history of pulmonary embolism and deep venous thrombosis, now comes in with chest pain, which is probably related to her anastomotic ulcer. The CT angiogram and V/Q scan have been reviewed and do not show any new blood clot. The CTA shows chronic linear clot and the V/Q scan shows mismatched defect in the left lower lobe. The venous Doppler shows nonocclusive thrombus. 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 We need to closely monitor for any anemia or bleeding while on anticoagulation. 2. No history of hypercoagulable state. 3. Morbid obesity with decreased ambulation. 4. Loss of appetite secondary to ulcer, resulting in decreased oral intake. RECOMMENDATIONS: 1. Discontinue heparin and start her on Xarelto. 2. I would recommend to have the patient follow up with [facility] where she has been regularly followed up and make future recommendation regarding continuation of Xarelto. 3. Consider GI consult regarding her poor appetite and history of ulcer. 4. Increase ambulation. 5. Weight loss is strongly emphasized. 6. Discussed with RN. GERMÁN COLEMAN MD DR: ARELY/shellie JOB#: [id number] / [id number]
--- NOTE | 2018-11-07 10:02 | CARD ---
MR#: [id number] Date of Study: 11/06/2018 Ordering Physician: BERTA THORPE, Referring Physician: COY HOLDEN, Tech: Sheree Cardenas APPROVED REPORT EXAM: Two-dimensional and M-mode echocardiogram with Doppler and color Doppler. Other Information Quality : AverageHR: 99bpm INDICATION Chest Pain Pulmonary Embolism RISK FACTORS Hypertension 2D DIMENSIONS Left Atrium(2D)2.4 (1.6-4.0cm)IVSd1.2 (0.7-1.1cm) Aortic Root(2D)2.3 (2.0-3.7cm)LVDd2.9 (3.9-5.9cm) LVOT Diameter2.0 (1.8-2.4cm)PWd1.0 (0.7-1.1cm) LVDs2.1 (2.5-4.0cm)FS (%) 33.1 % SV25.2 mlLVEF(%)63.0 (>50%) Aortic Valve AoV Peak Cornelius.100.4cm/sAoV VTI15.3cm AO Peak GR.4.0mmHgLVOT VTI 12.59cm AO Mean GR.2mmHgAVA (VTI)2.61cm2 Mitral Valve MV E Sjavfcod02.9cm/sMV DECEL NYPO185qm MV A Kbjjpgzy97.9cm/sE/A Ratio0.7 TDI Lateral E' P. V9.07cm/sMedial E' P. V5.08cm/s E/Lateral E'5.3E/Medial E'9.4 Pulmonary Vein S1 Vcpjuqnw55.2cm/sS2 Iotihbwl45.49cm/s D2 Tmlvshaj81.5cm/sPVa [id number] LEFT VENTRICLE The left ventricle is normal size. There is borderline to mild concentric left ventricular hypertroph y. The left ventricular systolic function is normal and the ejection fraction is within normal range. The Ejection Fraction is >55%. There is normal LV segmental wall motion. Transmitral Doppler flow pa ttern is Grade I-abnormal relaxation pattern. RIGHT VENTRICLE The right ventricle is mildly dilated. There is normal right ventricular wall thickness. The right ve ntricular systolic function is normal. ATRIA The left atrium size is normal. The right atrium size is normal. The interatrial septum is intact wit h no evidence for an atrial septal defect or patent foramen ovale as noted on 2-D or Doppler imaging. AORTIC VALVE The aortic valve is normal in structure and function. Doppler and Color Flow revealed no significant aortic regurgitation. There is no significant aortic valvular stenosis. MITRAL VALVE The mitral valve is normal in structure and function. There is no evidence of mitral valve prolapse. There is no mitral valve stenosis. Doppler and Color Flow revealed no mitral valve regurgitation note d. TRICUSPID VALVE The tricuspid valve is normal in structure and function. Doppler and Color Flow revealed trace tricus pid regurgitation. There is no tricuspid valve stenosis. PULMONIC VALVE The pulmonic valve is not well visualized. Doppler and Color Flow revealed no pulmonic valvular regur gitation. GREAT VESSELS The aortic root is normal in size. The IVC is normal in size and collapses >50% with inspiration. PERICARDIAL EFFUSION There is no evidence of significant pericardial effusion. Critical Notification Critical Value: No <Conclusion> The left ventricular systolic function is normal and the ejection fraction is within normal range. Th e Ejection Fraction is >55%. There is normal LV segmental wall motion. The right ventricle is mildly dilated. Signed by : Alverto Araujo, Electronically Approved : 11/07/2018 10:01:55
[2018-11-07] MEDS: RIVAROXABAN 10 MG TABLET. PO SCH (10:05)
[2018-11-07 10:44] VITALS: BP 98/59
[2018-11-07] MEDS: ANTI-COAG MONITOR BY PHARMACY. MC PRN (10:59)
--- NOTE | 2018-11-07 12:06 | NUR ---
SS following for discharge planning. SS reviewed pt chart. Pt is from home with spouse and is currently on room air. No discharge needs noted at this time. SS will continue to follow for pending discharge needs.
--- NOTE | 2018-11-07 12:56 | PDOC2 ---
GI CONSULT Reason For Consult: Nausea HPI: HPI: 43 y/o female who we saw in 03/2018 and 06/2018 for chest pain, vomiting, coughing, GERD, and h/o Sabi-en-Y. EGD in 03/2018 showed reflux esophagitis and Sabi-en-Y anatomy w/ anastomotic ulcer. REcs to follow-up for outpt EGD (on both occasions), didn't follow-up and seems surprised that she was supposed to do this when I asked her. Question compliance w/ sucralfate and PPI at home. She tells me "I take them before I eat." Presents again w/ similar symptoms. Reports "a sharp heavy feeling" in central chest that is constant . Reports some issues w/ retching x 2 weeks, keeping mostly to liquid diet. Thinks has lost 10-15 pounds. Denies hematemesis, hematochezia, melena, diarrhea. Has abd pain "sometimes" but can't elaborate. Last BM 5 days ago. No NSAIDs. Takes Oxycontin and Percocet for knee paint. No previous colonoscopy. S/p cholecystectomy. Hepatic steatosis on imaging. Restarted on Xarelto here. PMH: PMH: HTN, PE, DVT, GERD, hepatic steatosis, DM cholecystectomy, hernia repair w/ mesh, panniculectomy, Sabi-en-Y, IVC filter FH: Family History: No pertinent hx Social History: Smoke: No ALCOHOL: none Drugs: None ROS: GEN: Denies fevers, chills, sweats HEENT: Denies blurred vision, sore throat CV: +chest pain RESP: +cough GI: Per HPI : Denies hematuria, dysuria ENDO: +weight loss NEURO: Denies confusion, dizziness MSK: +chronic knee pain SKIN: Denies jaundice, pruritus Vitals: Vitals: Vital Signs Date Time Temp Pulse Resp B/P (MAP) Pulse Ox O2 Delivery O2 Flow Rate FiO2 11/07/18 10:44 98.0 77 18 98/59 (72) 97 Room Air 98.0 Labs: Labs: Laboratory Tests Test 11/06/18 16:45 11/06/18 19:25 11/06/18 23:55 11/07/18 00:52 Troponin I Quantitative < 0.017 ng/mL (0.000-0.055) < 0.017 ng/mL (0.000-0.055) Heparin Anti-Xa Act, Unfractionated 0.97 IU/mL (0.30-0.70) Urine Collection Type Unknown Urine Color Olga Urine Clarity Clear Urine pH 7.5 Urine Specific [place] >=1.030 Urine Protein Negative mg/dL (NEG-TRACE) Urine Glucose (UA) Negative mg/dL (NEG) Urine Ketones (Stick) Negative mg/dL (NEG) Urine Blood Negative (NEG) Urine Nitrite Positive (NEG) Urine Bilirubin Moderate (NEG) Urine Urobilinogen Dipstick 4.0 mg/dL (0.2 mg/dL) Urine Leukocyte Esterase Moderate (NEG) Urine RBC 0 /HPF (0-2) Urine WBC 5-10 /HPF (0-4) Urine Squamous Epithelial Cells Few /LPF Urine Bacteria Many /HPF (0-FEW) Test 11/07/18 06:15 Heparin Anti-Xa Act, Unfractionated 0.91 IU/mL (0.30-0.70) Allergies: Coded Allergies: banana (Verified Allergy, Severe, SWELLING TO MOUTH AND TONGUE, 04/20/18) cephalexin (Verified Allergy, Severe, "SWELLING TO MOUTH", 04/20/18) shrimp (Verified Allergy, Severe, SWELLING TO MOUTH AND TONGUE, 04/20/18) fentanyl (Verified Allergy, Intermediate, 07/02/18) Medications: Current Medications Medications (Trade) Dose Ordered Sig/[place] Route PRN Reason Start Time Stop Time Status Last Admin Dose Admin Levofloxacin/ Dextrose 100 ml @ 100 mls/hr 1X ONCE IV 11/06/18 13:15 11/06/18 14:14 DC 11/06/18 15:30 Ondansetron HCl (Zofran) 4 mg PRN Q4HRS PRN IV NAUSEA/VOMITING 11/06/18 13:30 11/07/18 08:24 Acetaminophen (Tylenol) 650 mg PRN Q4HRS PRN PO TEMP OVER 100.4F OR MILD PAIN 11/06/18 13:30 11/06/18 17:10 Carvedilol (Coreg) 3.125 mg BIDWMEALS PO 11/06/18 17:00 11/07/18 08:21 Folic Acid (Folic Acid) 1 mg DAILY PO 11/06/18 15:00 11/07/18 08:21 Losartan Potassium (Cozaar) 100 mg DAILY PO 11/06/18 15:00 11/07/18 08:21 Lurasidone HCl (Latuda) 40 mg DAILY PO 11/06/18 15:00 11/07/18 08:22 Magnesium Oxide (Magnesium Oxide) 200 mg DAILY PO 11/06/18 15:00 11/07/18 08:21 Sucralfate (Carafate) 1 gm QIDACHS PO 11/06/18 16:30 11/07/18 08:22 Pantoprazole Sodium (Protonix) 40 mg BIDAC PO 11/06/18 16:30 11/07/18 08:22 Info (Anti-Coagulation Monitoring By Pharmacy) 1 each PRN DAILY PRN MC SEE COMMENTS 11/06/18 14:15 11/07/18 10:59 Potassium Chloride (KCl Oral Soln) 20 meq 1X ONCE PEG 11/06/18 15:00 11/06/18 15:01 DC 11/06/18 17:09 Heparin Sodium (Porcine) (Heparin Sodium) 6,600 unit 1X ONCE IV 11/06/18 16:30 11/07/18 09:48 DC 11/06/18 17:20 Heparin Sodium/ Dextrose 500 ml @ 0 mls/hr CONT PRN IV SEE I/O RECORD 11/06/18 16:30 11/07/18 09:48 DC 11/06/18 17:32 Morphine Sulfate (Morphine Sulfate) 2 mg Q3HRS PRN IV PAIN 11/06/18 19:30 11/07/18 08:22 Rivaroxaban (Xarelto) 20 mg DAILYWSUP PO 11/07/18 10:00 11/07/18 10:05 Imaging: Imaging: CXR Impression: No evidence of acute cardiopulmonary process. VQ scan IMPRESSION: Intermediate probability for pulmonary embolus. LE US Impression: Study is positive for bilateral DVTs. Abd US IMPRESSION: 1. Mild hepatomegaly with hepatic steatosis. Chest CTA IMPRESSION: Repeat demonstration of some linear filling defects in the bilateral pulmonary arteries which could be secondary to old recanalized embolus. Liver is low-attenuation. Nonspecific but can be seen with fatty infiltration. Mild patchy groundglass opacity in left lung. Could be secondary to small airway inflammation. CXR 11/06 Impression: 1. There is now a right upper extremity PICC. Echo <Conclusion> The left ventricular systolic function is normal and the ejection fraction is within normal range. The Ejection Fraction is >55%. There is normal LV segmental wall motion. The right ventricle is mildly dilated. PE: GEN: NAD HEENT: Atraumatic, PERRL LUNGS: CTAB HEART: RRR - central/substernal chest wall discomfort - mild ABD: NABS, S/ND/NT EXTREMITY: No edema SKIN: No rashes, no jaundice NEURO/PSYCH: A & O 3 A/P: A/P: Chest pain, h/o DVTs and PE, ?UTI Nausea/retching, ?weight loss GERD S/p Sabi-en-Y w/ h/o anastomotic ulcer - non-compliant w/ follow-up Elevated LFTs - worse this admission, h/o hepatic steatosis ?constipation S/p cholecystectomy -- Agree w/ sucralfate and PPI as in the past. Would benefit from EGD to recheck ulcer - she has failed to follow-up for this. Additional recs per Dr. Watt re: LFTs. Miralax, Dulcolax if she wants. SHAMIR RODRIGUEZ Nov 07, 2018 12:56
[2018-11-07] MEDS: POLYETHYLENE GLYCOL 3350 17 GM PACKET. PO SCH (13:40)
[2018-11-07] MEDS ORDERED: BISACODYL 5 MG TABLET.DR. PO ONE (14:00)
[2018-11-07 14:54] VITALS: BP 127/84
--- NOTE | 2018-11-07 18:30 | PDOC ---
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 Will follow recommendations from organization development consultant. Vitals Vitals Vital Signs Date Time Temp Pulse Resp B/P (MAP) Pulse Ox O2 Delivery O2 Flow Rate FiO2 11/07/18 18: 92 11/07/18 14:54 98.4 16 127/84 (98) 98 Room Air 98.4 Physical Exam General: Alert, Oriented X3, Cooperative, No acute distress Heart: Regular rate (SR), Normal S1, Normal S2, Other (2/6 systolic murmur to LLS border) Lungs: Clear Abdomen: Soft, No tenderness Extremities: No cyanosis, No edema Skin: No breakdown Labs LABS Laboratory Tests Test 11/06/18 19:25 11/06/18 23:55 11/07/18 00:52 11/07/18 06:15 Troponin I Quantitative < 0.017 ng/mL (0.000-0.055) Heparin Anti-Xa Act, Unfractionated 0.97 IU/mL (0.30-0.70) 0.91 IU/mL (0.30-0.70) Urine Collection Type Unknown Urine Color Olga Urine Clarity Clear Urine pH 7.5 Urine Specific [place] >=1.030 Urine Protein Negative mg/dL (NEG-TRACE) Urine Glucose (UA) Negative mg/dL (NEG) Urine Ketones (Stick) Negative mg/dL (NEG) Urine Blood Negative (NEG) Urine Nitrite Positive (NEG) Urine Bilirubin Moderate (NEG) Urine Urobilinogen Dipstick 4.0 mg/dL (0.2 mg/dL) Urine Leukocyte Esterase Moderate (NEG) Urine RBC 0 /HPF (0-2) Urine WBC 5-10 /HPF (0-4) Urine Squamous Epithelial Cells Few /LPF Urine Bacteria Many /HPF (0-FEW) Test 11/07/18 14:40 Hepatitis A IgM Antibody Nonreactive (Nonreactive) Hepatitis B Surface Antigen Nonreactive (Nonreactive) Hepatitis B Core IgM Antibody Nonreactive (Nonreactive) Hepatitis C IgG Antibody Nonreactive (Nonreactive) Assessment and Plan Assessmemt and Plan Problems Medical Problems: (1) Chest pain Status: Acute (2) Elevated bilirubin Status: Acute Comment Review of Relevant I have reviewed the following items leo (where applicable) has been applied. Labs Laboratory Tests Test 11/06/18 09:54 11/06/18 11:13 11/06/18 12:18 11/06/18 16:45 White Blood Count 4.1 x10^3/uL (4.0-11.0) Red Blood Count 4.17 x10^6/uL (3.50-5.40) Hemoglobin 12.4 g/dL (12.0-15.5) Hematocrit 38.8 % (36.0-47.0) Mean Corpuscular Volume 93 fL (79-100) Mean Corpuscular Hemoglobin 30 pg (25-35) Mean Corpuscular Hemoglobin Concent 32 g/dL (31-37) Red Cell Distribution Width 16.4 % (11.5-14.5) Platelet Count 351 x10^3/uL (140-400) Neutrophils (%) (Auto) 51 % (31-73) Lymphocytes (%) (Auto) 41 % (24-48) Monocytes (%) (Auto) 3 % (0-9) Eosinophils (%) (Auto) 2 % (0-3) Basophils (%) (Auto) 3 % (0-3) Neutrophils # (Auto) 2.1 x10^3uL (1.8-7.7) Lymphocytes # (Auto) 1.7 x10^3/uL (1.0-4.8) Monocytes # (Auto) 0.1 x10^3/uL (0.0-1.1) Eosinophils # (Auto) 0.1 x10^3/uL (0.0-0.7) Basophils # (Auto) 0.1 x10^3/uL (0.0-0.2) Prothrombin Time 15.9 SEC (11.7-14.0) Prothromb Time International Ratio 1.3 (0.8-1.1) Sodium Level 135 mmol/L (136-145) Potassium Level 3.3 mmol/L (3.5-5.1) Chloride Level 102 mmol/L (98-107) Carbon Dioxide Level 19 mmol/L (21-32) Anion Gap 14 (6-14) Blood Urea Nitrogen 9 mg/dL (7-20) Creatinine 0.7 mg/dL (0.6-1.0) Estimated GFR (Cockcroft-Gault) 109.5 BUN/Creatinine Ratio 13 (6-20) Glucose Level 170 mg/dL (70-99) Calcium Level 7.9 mg/dL (8.5-10.1) Total Bilirubin 3.0 mg/dL (0.2-1.0) Aspartate Amino Transf (AST/SGOT) 159 U/L (15-37) Alanine Aminotransferase (ALT/SGPT) 104 U/L (14-59) Alkaline Phosphatase 165 U/L (46-116) Creatine Kinase 135 U/L (26-192) Creatine Kinase MB (Mass) 1.1 ng/mL (0.0-3.6) Creatine Kinase MB Relative Index 0.8 % (0-4) Troponin I Quantitative < 0.017 ng/mL (0.000-0.055) < 0.017 ng/mL (0.000-0.055) VL-Hzc-K-Type Natriuretic Peptide 251 pg/mL (0-124) Total Protein 5.4 g/dL (6.4-8.2) Albumin 1.9 g/dL (3.4-5.0) Albumin/Globulin Ratio 0.5 (1.0-1.7) Lipase 176 U/L (73-393) Urine Collection Type Unknown Urine Color Olga Urine Clarity Hazy Urine pH 7.0 Urine Specific [place] 1.020 Urine Protein Negative mg/dL (NEG-TRACE) Urine Glucose (UA) Negative mg/dL (NEG) Urine Ketones (Stick) Trace mg/dL (NEG) Urine Blood Negative (NEG) Urine Nitrite Negative (NEG) Urine Bilirubin Large (NEG) Urine Urobilinogen Dipstick 4.0 mg/dL (0.2 mg/dL) Urine Leukocyte Esterase Moderate (NEG) Urine RBC 0 /HPF (0-2) Urine WBC >40 /HPF (0-4) Urine Squamous Epithelial Cells Mod /LPF Urine Bacteria Many /HPF (0-FEW) Urine Hyaline Casts Many /HPF Test 11/06/18 19:25 11/06/18 23:55 11/07/18 00:52 11/07/18 06:15 Troponin I Quantitative < 0.017 ng/mL (0.000-0.055) Heparin Anti-Xa Act, Unfractionated 0.97 IU/mL (0.30-0.70) 0.91 IU/mL (0.30-0.70) Urine Collection Type Unknown Urine Color Olga Urine Clarity Clear Urine pH 7.5 Urine Specific [place] >=1.030 Urine Protein Negative mg/dL (NEG-TRACE) Urine Glucose (UA) Negative mg/dL (NEG) Urine Ketones (Stick) Negative mg/dL (NEG) Urine Blood Negative (NEG) Urine Nitrite Positive (NEG) Urine Bilirubin Moderate (NEG) Urine Urobilinogen Dipstick 4.0 mg/dL (0.2 mg/dL) Urine Leukocyte Esterase Moderate (NEG) Urine RBC 0 /HPF (0-2) Urine WBC 5-10 /HPF (0-4) Urine Squamous Epithelial Cells Few /LPF Urine Bacteria Many /HPF (0-FEW) Test 11/07/18 14:40 Hepatitis A IgM Antibody Nonreactive (Nonreactive) Hepatitis B Surface Antigen Nonreactive (Nonreactive) Hepatitis B Core IgM Antibody Nonreactive (Nonreactive) Hepatitis C IgG Antibody Nonreactive (Nonreactive) Laboratory Tests Test 11/06/18 19:25 11/06/18 23:55 11/07/18 00:52 11/07/18 06:15 Troponin I Quantitative < 0.017 ng/mL (0.000-0.055) Heparin Anti-Xa Act, Unfractionated 0.97 IU/mL (0.30-0.70) 0.91 IU/mL (0.30-0.70) Urine Collection Type Unknown Urine Color Olga Urine Clarity Clear Urine pH 7.5 Urine Specific [place] >=1.030 Urine Protein Negative mg/dL (NEG-TRACE) Urine Glucose (UA) Negative mg/dL (NEG) Urine Ketones (Stick) Negative mg/dL (NEG) Urine Blood Negative (NEG) Urine Nitrite Positive (NEG) Urine Bilirubin Moderate (NEG) Urine Urobilinogen Dipstick 4.0 mg/dL (0.2 mg/dL) Urine Leukocyte Esterase Moderate (NEG) Urine RBC 0 /HPF (0-2) Urine WBC 5-10 /HPF (0-4) Urine Squamous Epithelial Cells Few /LPF Urine Bacteria Many /HPF (0-FEW) Test 11/07/18 14:40 Hepatitis A IgM Antibody Nonreactive (Nonreactive) Hepatitis B Surface Antigen Nonreactive (Nonreactive) Hepatitis B Core IgM Antibody Nonreactive (Nonreactive) Hepatitis C IgG Antibody Nonreactive (Nonreactive) Medications Current Medications Aspirin (Children'S Aspirin) 324 mg 1X ONCE PO Last administered on 11/06/18 10:44; Start 11/06/18 at 09:15; Stop 11/06/18 at 09:18; Status DC Morphine Sulfate (Morphine Sulfate) 4 mg PRN Q15MIN PRN IV/SQ PAIN GREATER THAN 3/10 Last administered on 11/06/18at 13:14; Start 11/06/18 at 09:15; Stop at 09:14; Status DC Ondansetron HCl (Zofran) 4 mg 1X ONCE IV Last administered on 11/06/18at 10:44 ; Start 11/06/18 at 09:15; Stop 11/06/18 at 09:18; Status DC Iohexol (Omnipaque 350 Mg/ml) 100 ml 1X ONCE IV Last administered on at 22:00; Start 11/06/18 at 11:30; Stop 11/06/18 at 11:33; Status DC Info (CONTRAST GIVEN -- Rx MONITORING) 1 each PRN DAILY PRN MC SEE COMMENTS; Start 11/06/18 at 11:45; Stop 11/08/18 at 11:44 Levofloxacin/ Dextrose 100 ml @ 100 mls/hr 1X ONCE IV Last administered on at 15:30; Start 11/06/18 at 13:15; Stop 11/06/18 at 14:14; Status DC Ondansetron HCl (Zofran) 4 mg PRN Q4HRS PRN IV NAUSEA/VOMITING Last administered on 11/07/18at 18:20; Start 11/06/18 at 13:30 Zolpidem Tartrate (Ambien) 5 mg PRN QHS PRN PO INSOMNIA; Start 11/06/18 at 13: 30 Acetaminophen (Tylenol) 650 mg PRN Q4HRS PRN PO TEMP OVER 100.4F OR MILD PAIN Last administered on 11/06/18at 17:10; Start 11/06/18 at 13:30 Al Hydroxide/Mg Hydroxide (Mylanta Plus Xs) 30 ml PRN DAILY PRN PO HEARTBURN / GAS; Start 11/06/18 at 13:30 Clonidine HCl (Catapres) 0.1 mg PRN Q6HRS PRN PO SBP>160 OR DBP>90; Start 11/06 at 13:30 Diphenhydramine HCl (Benadryl) 25 mg PRN Q4HRS PRN IVP ITCHING; Start 11/06/18 at 13:30 Docusate Sodium (Colace) 100 mg PRN BID PRN PO CONSTIPATION; Start 11/06/18 at 13:30 Albuterol Sulfate (Ventolin Neb Soln) 2.5 mg PRN Q4HRS PRN NEB SHORTNESS OF BREATH; Start 11/06/18 at 13:30 Guaifenesin (Robitussin) 200 mg PRN Q4HRS PRN PO COUGH; Start 11/06/18 at 13:30 Lorazepam (Ativan) 0.5 mg PRN Q4HRS PRN PO ANXIETY / AGITATION; Start 11/06/18 at 13:30 Carvedilol (Coreg) 3.125 mg BIDWMEALS PO Last administered on 11/07/18at 18:19; Start 11/06/18 at 17:00 Folic Acid (Folic Acid) 1 mg DAILY PO Last administered on 11/07/18at 08:21; Start 11/06/18 at 15:00 Losartan Potassium (Cozaar) 100 mg DAILY PO Last administered on 11/07/18at 08: 21; Start 11/06/18 at 15:00 Lurasidone HCl (Latuda) 40 mg DAILY PO Last administered on 11/07/18at 08:22; Start 11/06/18 at 15:00 Ergocalciferol (Vitamin D2) 50,000 unit WEEKLY PO ; Start 11/06/18 at 15:00 Magnesium Oxide (Magnesium Oxide) 200 mg DAILY PO Last administered on at 08:21; Start 11/06/18 at 15:00 Rivaroxaban (Xarelto) 20 mg DAILYWSUP PO ; Start 11/06/18 at 17:00; Stop at 17:00; Status DC Sucralfate (Carafate) 1 gm QIDACHS PO Last administered on 11/07/18 18:19; Start 11/06/18 at 16:30 Pantoprazole Sodium (Protonix) 40 mg BIDAC PO Last administered on 11/07/18 18 :20; Start 11/06/18 at 16:30 Info (Anti-Coagulation Monitoring By Pharmacy) 1 each PRN DAILY PRN MC SEE COMMENTS Last administered on 11/07/18at 10:59; Start 11/06/18 at 14:15 Potassium Chloride (KCl Oral Soln) 20 meq 1X ONCE PEG Last administered on 17:09; Start 11/06/18 at 15:00; Stop 11/06/18 at 15:01; Status DC Heparin Sodium/ Dextrose 500 ml @ 0 mls/hr CONT PRN IV SEE I/O RECORD; Start at 16:30; Status UNV Heparin Sodium (Porcine) (Heparin Sodium) 6,600 unit 1X ONCE IV Last administered on 11/06/18at 17:20; Start 11/06/18 at 16:30; Stop 11/07/18 at 09:48 ; Status DC Heparin Sodium/ Dextrose 500 ml @ 0 mls/hr CONT PRN IV SEE I/O RECORD Last administered on 11/06/18at 17:32; Start 11/06/18 at 16:30; Stop 11/07/18 at 09:48 ; Status DC Heparin Sodium (Porcine) (Heparin Sodium) 2,500 unit PRN Q6HRS PRN IV FOR UFH LEVEL LESS THAN 0.2; Start 11/06/18 at 16:30; Stop 11/07/18 at 09:48; Status DC Heparin Sodium (Porcine) (Heparin Sodium) 1,200 unit PRN Q6HRS PRN IV FOR UFH LEVEL 0.2 - 0.29; Start 11/06/18 at 16:30; Stop 11/07/18 at 09:48; Status DC Morphine Sulfate (Morphine Sulfate) 2 mg Q3HRS PRN IV PAIN Last administered on 11/07/18at 18:21; Start 11/06/18 at 19:30 Iohexol (Omnipaque 350 Mg/ml) 100 ml STK-MED ONCE .ROUTE ; Start 11/07/18 at 02: 38; Stop 11/07/18 at 02:39; Status DC Rivaroxaban (Xarelto) 20 mg DAILYWSUP PO Last administered on 11/07/18at 10:05; Start 11/07/18 at 10:00 Bisacodyl (Dulcolax Tab) 5 mg 1X ONCE PO Last administered on 11/07/18at 13:40 ; Start 11/07/18 at 14:00; Stop 11/07/18 at 14:01; Status DC Polyethylene Glycol (miraLAX PACKET) 17 gm DAILY PO Last administered on at 13:40; Start 11/07/18 at 14:00 Active Scripts Active Cozaar (Losartan Potassium) 50 Mg Tablet 100 Mg PO DAILY 30 Days Carafate (Sucralfate) 1 Gm Tablet 1 Gm PO QIDACHS [Pantoprazole] 40 MG Tablet.dr 40 Mg PO BIDAC Reported Carvedilol 3.125 Mg Tablet 3.125 Mg PO BIDWMEALS Xarelto (Rivaroxaban) 20 Mg Tablet 20 Mg PO DAILY Latuda (Lurasidone Hcl) 40 Mg Tablet 40 Mg PO DAILY Vitamin D3 (Cholecalciferol (Vitamin D3)) 50,000 Unit Capsule 50,000 Unit PO WEEKLY Folic Acid 1 Mg Tablet 1 Mg PO DAILY Magnesium Oxide 400 Mg Tablet 250 Mg PO DAILY Vitals/I & O Vital Sign - Last 24 Hours 11/06/18 11/06/18 11/06/18 11/06/18 19:47 19:50 20:17 20:47 Temp 98.2 98.2 Pulse 84 Resp B/P (MAP) 155/90 (111) Pulse Ox 99 O2 Delivery Room Air Room Air Room Air Room Air 11/06/18 11/06/18 11/07/18 11/07/18 22:45 23:58 02:47 03:54 Temp 97.9 98.6 97.9 98.6 Pulse 78 87 Resp 20 18 18 20 B/P (MAP) 118/81 (93) 123/81 (95) Pulse Ox 99 98 O2 Delivery Room Air Room Air Room Air Room Air 11/07/18 11/07/18 11/07/18 11/07/18 04:24 07:37 08:10 08:21 Temp 98.3 98.3 Pulse 97 95 Resp 20 18 B/P (MAP) 186/95 (125) Pulse Ox 95 O2 Delivery Room Air Room Air 11/07/18 11/07/18 11/07/18 11/07/18 08:21 10:44 14:54 18:19 Temp 98.0 98.4 98.0 98.4 Pulse 105 77 100 92 Resp 18 16 B/P (MAP) 98/59 (72) 127/84 (98) Pulse Ox 97 98 O2 Delivery Room Air Room Air Intake and Output 11/06/18 11/06/18 11/07/18 14:59 22:59 06:59 Intake Total 240 ml 20 ml Output Total 550 ml Balance 240 ml -530 ml COY HOLDEN MD Nov 07, 2018 18:30
[2018-11-07 19:00] VITALS: BP 127/86
[2018-11-07 23:00] VITALS: BP 102/55
[2018-11-08] MEDS: MORPHINE SULFATE 2 MG/ML VIAL. IV PRN ×3 (02:57→18:11)
[2018-11-08] MEDS: ONDANSETRON PF 4 MG/2 ML VIAL. IV PRN ×2 (02:57→15:00)
[2018-11-08 03:00] VITALS: BP 115/70
[2018-11-08 07:12] VITALS: BP 136/73
[2018-11-08] MEDS: PANTOPRAZOLE 40 MG TABLET.DR. PO SCH ×2 (07:30→15:18)
[2018-11-08] MEDS: SUCRALFATE 1 GM TABLET. PO SCH ×4 (07:30→20:45)
[2018-11-08] MEDS: CARVEDILOL 3.125 MG TABLET. PO SCH ×2 (08:00→15:11)
[2018-11-08] MEDS: FOLIC ACID 1 MG TABLET. PO SCH (09:00)
[2018-11-08] MEDS: POLYETHYLENE GLYCOL 3350 17 GM PACKET. PO SCH (09:00)
[2018-11-08] MEDS: MAGNESIUM OXIDE 400 MG TABLET PO SCH (09:00)
[2018-11-08] MEDS: IV RINGERS,LACTATED 1000ML 1,000 ML IV SCH ×2 (09:28→17:24)
[2018-11-08] MEDS ORDERED: MIDAZOLAM HCL/PF 2 MG/2 ML VIAL. IV PRN (09:30)
[2018-11-08] MEDS ORDERED: LIDOCAINE 1% PF 2 ML VIAL. ID PRN (09:30)
--- NOTE | 2018-11-08 10:07 | PDOC4 ---
PROCEDURE Procedure EGD Indication: Epigastric pain, N, V, history of anastomotic ulcer, s/p sabi-en-Y Meds: per anesthesia Findings: E--Healed esophagitis, baseline grade indeterminate, at 30cm. G--S/p sabi-en-Y. Prior ulcer healed with visible staple. D--Sabi limb normal to extent of exam. Renato. well. IMP: Healed reflux S/p sabi-en-Y Interval healing of prior anastomotic ulcer; cause of current issues unclear. Normal sonogram this admission. REC: SBFT Consider intracranial imaging if no answer from SB series. Continue PPI, sucralfate. Thanks. SAGE NORRIS MD Nov 08, 2018 10:07
[2018-11-08] MEDS ORDERED: BARIUM SULFATE 60% 355 ML SUSP PO ONE (10:15)
--- NOTE | 2018-11-08 10:48 | NUR ---
pt left for EGD at 0900
--- NOTE | 2018-11-08 13:21 | PDOC ---
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 Non adherence to PPI and carafate for ulcer treatment Inability to tolerate PO due to the above History of IVC filter placement Obesity with BMI of 34 Transaminitis most likely secondary to steatohepatitis Mild bilirubinemia Hypokalemia and hyponatremia as a consequence of her poor oral intake History of Present Illness History of Present Illness discussed results of EGD with pateint, small bowel follow through ordered by senior market intelligence consultant Will follow recommendations from senior market intelligence consultant. Vitals Vitals Vital Signs Date Time Temp Pulse Resp B/P (MAP) Pulse Ox O2 Delivery O2 Flow Rate FiO2 11/08/18 10:32 90 16 159/102 99 Room Air 11/08/18 10:02 97.2 2 97.2 Physical Exam General: Alert, Oriented X3, Cooperative, No acute distress Heart: Regular rate (SR), Normal S1, Normal S2, Other (2/6 systolic murmur to LLS border) Lungs: Clear Abdomen: Soft, No tenderness Extremities: No cyanosis, No edema Skin: No breakdown Labs LABS Laboratory Tests Test 11/07/18 14:40 Iron Level 124 ug/dL (50-170) Total Iron Binding Capacity 112 ug/dL (250-450) Iron Saturation % (15-34) Hepatitis A IgM Antibody Nonreactive (Nonreactive) Hepatitis B Surface Antigen Nonreactive (Nonreactive) Hepatitis B Core IgM Antibody Nonreactive (Nonreactive) Hepatitis C IgG Antibody Nonreactive (Nonreactive) Assessment and Plan Assessmemt and Plan Problems Medical Problems: (1) Chest pain Status: Acute (2) Elevated bilirubin Status: Acute Comment Review of Relevant I have reviewed the following items leo (where applicable) has been applied. Labs Laboratory Tests Test 11/06/18 16:45 11/06/18 19:25 11/06/18 23:55 11/07/18 00:52 Troponin I Quantitative < 0.017 ng/mL (0.000-0.055) < 0.017 ng/mL (0.000-0.055) Heparin Anti-Xa Act, Unfractionated 0.97 IU/mL (0.30-0.70) Urine Collection Type Unknown Urine Color Olga Urine Clarity Clear Urine pH 7.5 Urine Specific [place] >=1.030 Urine Protein Negative mg/dL (NEG-TRACE) Urine Glucose (UA) Negative mg/dL (NEG) Urine Ketones (Stick) Negative mg/dL (NEG) Urine Blood Negative (NEG) Urine Nitrite Positive (NEG) Urine Bilirubin Moderate (NEG) Urine Urobilinogen Dipstick 4.0 mg/dL (0.2 mg/dL) Urine Leukocyte Esterase Moderate (NEG) Urine RBC 0 /HPF (0-2) Urine WBC 5-10 /HPF (0-4) Urine Squamous Epithelial Cells Few /LPF Urine Bacteria Many /HPF (0-FEW) Test 11/07/18 06:15 11/07/18 14:40 Heparin Anti-Xa Act, Unfractionated 0.91 IU/mL (0.30-0.70) Iron Level 124 ug/dL (50-170) Total Iron Binding Capacity 112 ug/dL (250-450) Iron Saturation % (15-34) Hepatitis A IgM Antibody Nonreactive (Nonreactive) Hepatitis B Surface Antigen Nonreactive (Nonreactive) Hepatitis B Core IgM Antibody Nonreactive (Nonreactive) Hepatitis C IgG Antibody Nonreactive (Nonreactive) Laboratory Tests Test 11/07/18 14:40 Iron Level 124 ug/dL (50-170) Total Iron Binding Capacity 112 ug/dL (250-450) Iron Saturation % (15-34) Hepatitis A IgM Antibody Nonreactive (Nonreactive) Hepatitis B Surface Antigen Nonreactive (Nonreactive) Hepatitis B Core IgM Antibody Nonreactive (Nonreactive) Hepatitis C IgG Antibody Nonreactive (Nonreactive) Microbiology 11/06/18 Urine Culture - Preliminary, Resulted 11/06/18 Urine Culture Result 1 (ALEAH) - Preliminary, Resulted Medications Current Medications Aspirin (Children'S Aspirin) 324 mg 1X ONCE PO Last administered on 11/06/18at 10:44; Start 11/06/18 at 09:15; Stop 11/06/18 at 09:18; Status DC Morphine Sulfate (Morphine Sulfate) 4 mg PRN Q15MIN PRN IV/SQ PAIN GREATER THAN 3/10 Last administered on 11/06/18at 13:14; Start 11/06/18 at 09:15; Stop at 09:14; Status DC Ondansetron HCl (Zofran) 4 mg 1X ONCE IV Last administered on 11/06/18at 10:44 ; Start 11/06/18 at 09:15; Stop 11/06/18 at 09:18; Status DC Iohexol (Omnipaque 350 Mg/ml) 100 ml 1X ONCE IV Last administered on at 22:00; Start 11/06/18 at 11:30; Stop 11/06/18 at 11:33; Status DC Info (CONTRAST GIVEN -- Rx MONITORING) 1 each PRN DAILY PRN MC SEE COMMENTS; Start 11/06/18 at 11:45; Stop 11/08/18 at 11:44; Status DC Levofloxacin/ Dextrose 100 ml @ 100 mls/hr 1X ONCE IV Last administered on at 15:30; Start 11/06/18 at 13:15; Stop 11/06/18 at 14:14; Status DC Ondansetron HCl (Zofran) 4 mg PRN Q4HRS PRN IV NAUSEA/VOMITING Last administered on 11/08/18at 02:57; Start 11/06/18 at 13:30 Zolpidem Tartrate (Ambien) 5 mg PRN QHS PRN PO INSOMNIA; Start 11/06/18 at 13: 30 Acetaminophen (Tylenol) 650 mg PRN Q4HRS PRN PO TEMP OVER 100.4F OR MILD PAIN Last administered on 11/06/18at 17:10; Start 11/06/18 at 13:30 Al Hydroxide/Mg Hydroxide (Mylanta Plus Xs) 30 ml PRN DAILY PRN PO HEARTBURN / GAS; Start 11/06/18 at 13:30 Clonidine HCl (Catapres) 0.1 mg PRN Q6HRS PRN PO SBP>160 OR DBP>90; Start 11/06 at 13:30 Diphenhydramine HCl (Benadryl) 25 mg PRN Q4HRS PRN IVP ITCHING; Start 11/06/18 at 13:30 Docusate Sodium (Colace) 100 mg PRN BID PRN PO CONSTIPATION; Start 11/06/18 at 13:30 Albuterol Sulfate (Ventolin Neb Soln) 2.5 mg PRN Q4HRS PRN NEB SHORTNESS OF BREATH; Start 11/06/18 at 13:30 Guaifenesin (Robitussin) 200 mg PRN Q4HRS PRN PO COUGH; Start 11/06/18 at 13:30 Lorazepam (Ativan) 0.5 mg PRN Q4HRS PRN PO ANXIETY / AGITATION; Start 11/06/18 at 13:30 Carvedilol (Coreg) 3.125 mg BIDWMEALS PO Last administered on 11/07/18 18:19; Start 11/06/18 at 17:00 Folic Acid (Folic Acid) 1 mg DAILY PO Last administered on 11/07/18 08:21; Start 11/06/18 at 15:00 Losartan Potassium (Cozaar) 100 mg DAILY PO Last administered on 11/07/18 08: 21; Start 11/06/18 at 15:00 Lurasidone HCl (Latuda) 40 mg DAILY PO Last administered on 11/07/18 08:22; Start 11/06/18 at 15:00 Ergocalciferol (Vitamin D2) 50,000 unit WEEKLY PO ; Start 11/06/18 at 15:00 Magnesium Oxide (Magnesium Oxide) 200 mg DAILY PO Last administered on 08:21; Start 11/06/18 at 15:00 Rivaroxaban (Xarelto) 20 mg DAILYWSUP PO ; Start 11/06/18 at 17:00; Stop at 17:00; Status DC Sucralfate (Carafate) 1 gm QIDACHS PO Last administered on 11/07/18at 20:58; Start 11/06/18 at 16:30 Pantoprazole Sodium (Protonix) 40 mg BIDAC PO Last administered on 11/07/18 18 :20; Start 11/06/18 at 16:30 Info (Anti-Coagulation Monitoring By Pharmacy) 1 each PRN DAILY PRN MC SEE COMMENTS Last administered on 11/07/18at 10:59; Start 11/06/18 at 14:15 Potassium Chloride (KCl Oral Soln) 20 meq 1X ONCE PEG Last administered on 17:09; Start 11/06/18 at 15:00; Stop 11/06/18 at 15:01; Status DC Heparin Sodium/ Dextrose 500 ml @ 0 mls/hr CONT PRN IV SEE I/O RECORD; Start at 16:30; Status UNV Heparin Sodium (Porcine) (Heparin Sodium) 6,600 unit 1X ONCE IV Last administered on 3/18/19at 17:20; Start 11/06/18 at 16:30; Stop 11/07/18 at 09:48 ; Status DC Heparin Sodium/ Dextrose 500 ml @ 0 mls/hr CONT PRN IV SEE I/O RECORD Last administered on 11/06/18at 17:32; Start 11/06/18 at 16:30; Stop 11/07/18 at 09:48 ; Status DC Heparin Sodium (Porcine) (Heparin Sodium) 2,500 unit PRN Q6HRS PRN IV FOR UFH LEVEL LESS THAN 0.2; Start 11/06/18 at 16:30; Stop 11/07/18 at 09:48; Status DC Heparin Sodium (Porcine) (Heparin Sodium) 1,200 unit PRN Q6HRS PRN IV FOR UFH LEVEL 0.2 - 0.29; Start 11/06/18 at 16:30; Stop 11/07/18 at 09:48; Status DC Morphine Sulfate (Morphine Sulfate) 2 mg Q3HRS PRN IV PAIN Last administered on 11/08/18at 02:57; Start 11/06/18 at 19:30 Iohexol (Omnipaque 350 Mg/ml) 100 ml STK-MED ONCE .ROUTE ; Start 11/07/18 at 02: 38; Stop 11/07/18 at 02:39; Status DC Rivaroxaban (Xarelto) 20 mg DAILYWSUP PO Last administered on 11/07/18at 10:05; Start 11/07/18 at 10:00 Bisacodyl (Dulcolax Tab) 5 mg 1X ONCE PO Last administered on 11/07/18at 13:40 ; Start 11/07/18 at 14:00; Stop 11/07/18 at 14:01; Status DC Polyethylene Glycol (miraLAX PACKET) 17 gm DAILY PO Last administered on at 13:40; Start 11/07/18 at 14:00 Midazolam HCl (Versed) 2 mg PRN 1X PRN IV PRIOR TO PROCEDURE; Start 11/08/18 at 09:30; Stop 11/09/18 at 09:29 Ringer's Solution 1,000 ml @ 125 mls/hr Q8H IV Last administered on 11/08/18at 09:28; Start 11/08/18 at 09:24; Stop 11/08/18 at 21:23 Lidocaine HCl (Xylocaine-Mpf 1% 2ml Vial) 2 ml 1X PRN PRN ID IV START; Start at 09:30; Stop 11/09/18 at 09:29 Barium Sulfate (Liquid E-Z Paque) 711 ml 1X ONCE PO ; Start 11/08/18 at 10:15; Stop 11/08/18 at 10:17; Status DC Active Scripts Active Cozaar (Losartan Potassium) 50 Mg Tablet 100 Mg PO DAILY 30 Days Carafate (Sucralfate) 1 Gm Tablet 1 Gm PO QIDACHS [Pantoprazole] 40 MG Tablet. 40 Mg PO BIDAC Reported Carvedilol 3.125 Mg Tablet 3.125 Mg PO BIDWMEALS Xarelto (Rivaroxaban) 20 Mg Tablet 20 Mg PO DAILY Latuda (Lurasidone Hcl) 40 Mg Tablet 40 Mg PO DAILY Vitamin D3 (Cholecalciferol (Vitamin D3)) 50,000 Unit Capsule 50,000 Unit PO WEEKLY Folic Acid 1 Mg Tablet 1 Mg PO DAILY Magnesium Oxide 400 Mg Tablet 250 Mg PO DAILY Vitals/I & O Vital Sign - Last 24 Hours 11/07/18 11/07/18 11/07/18 11/07/18 14:54 18:19 19:00 19:45 Temp 98.4 98.6 98.4 98.6 Pulse 100 92 102 Resp 16 18 B/P (MAP) 127/84 (98) 127/86 (100) Pulse Ox 98 97 O2 Delivery Room Air Room Air Room Air 11/07/18 11/07/18 11/08/18 11/08/18 23:00 23:48 02:57 03:00 Temp 98.3 97.8 98.3 97.8 Pulse 82 81 Resp 16 16 B/P (MAP) 102/55 (71) 115/70 (85) Pulse Ox 96 96 O2 Delivery Room Air Room Air Room Air Room Air 11/08/18 11/08/18 11/08/18 11/08/18 03:27 07:12 07:56 09:14 Temp 97.9 98 97.9 98.0 Pulse 99 97 Resp 16 18 B/P (MAP) 136/73 (94) Pulse Ox 97 98 O2 Delivery Room Air Room Air Room Air 11/08/18 11/08/18 11/08/1819 09:16 10:02 10:17 10:32 Temp 97.2 97.2 Pulse 87 89 90 Resp 16 16 16 B/P (MAP) 112/73 132/88 159/102 Pulse Ox 100 99 99 O2 Delivery Room Air Nasal Cannula Room Air Room Air O2 Flow Rate 2 Intake and Output 11/07/18 11/07/18 11/08/18 14:59 22:59 06:59 Intake Total 120 ml 120 ml Output Total 200 ml 250 ml 400 ml Balance -80 ml -130 ml -400 ml COY HOLDEN MD Nov 08, 2018 13:21
--- NOTE | 2018-11-08 14:00 | PDOC ---
Provider Note Provider Note pt not seen gone for procedure most of the day GERMÁN COLEMAN MD Nov 08, 2018 14:00
[2018-11-08 14:47] VITALS: BP 137/87
[2018-11-08] MEDS: LURASIDONE 40 MG TABLET. PO SCH (15:11)
[2018-11-08] MEDS: LOSARTAN POTASSIUM 50 MG TABLET. PO SCH (15:11)
[2018-11-08] MEDS: CIPROFLOXACIN HCL 250 MG TABLET. PO SCH ×2 (15:18→20:45)
--- NOTE | 2018-11-08 16:39 | RAD ---
Indication: Lower abdominal pain, nausea and vomiting. History of Sabi-en-Y. TECHNIQUE: Small bowel follow-through with thin barium with total fluoroscopy time of 1.4 minutes and multiple images. COMPARISON: None FINDINGS: The oil fire specialist image demonstrates no abnormally dilated bowel loops. Infrarenal IVC filter. Right upper quadrant clips suggesting cholecystectomy. Prompt opacification of the stomach and jejunal loops is seen. Significantly delayed passage of contrast is seen through the colon. Contrast reaches the colon at 285 minutes. No stricture seen in the stomach or at the gastrojejunal anastomosis. IMPRESSION: 1. No bowel obstruction. 2. No anastomotic stricture at the gastrojejunal junction. Electronically signed by: Domo Tovar DO (11/08/2018 4:37 PM) [facility]
[2018-11-08] MEDS ORDERED: IOHEXOL 300 MG/ML 100ML VIAL. IV ONE (17:15)
[2018-11-08] MEDS ORDERED: CONTRAST GIVEN. MC PRN (17:15)
[2018-11-08] MEDS: RIVAROXABAN 10 MG TABLET. PO SCH (18:11)
--- NOTE | 2018-11-08 18:31 | NUR ---
pt returned from EGD and SBS at 1445 in stable condition. pt is complaining of 8/10 at that time. pt is nauseated, meds given. tray ordered per pt request. will continue to monitor.
[2018-11-08 19:55] VITALS: BP 130/83
[2018-11-08 23:25] VITALS: BP 92/61
[2018-11-09] MEDS: ONDANSETRON PF 4 MG/2 ML VIAL. IV PRN ×3 (01:18→18:16)
[2018-11-09] MEDS: MORPHINE SULFATE 2 MG/ML VIAL. IV PRN ×6 (01:18→23:10)
[2018-11-09 03:51] VITALS: BP 102/57
[2018-11-09] MEDS: PANTOPRAZOLE 40 MG TABLET.DR. PO SCH ×2 (07:03→16:49)
[2018-11-09 07:27] VITALS: BP 121/84
[2018-11-09] MEDS: SUCRALFATE 1 GM TABLET. PO SCH ×4 (07:30→21:18)
[2018-11-09] MEDS: POLYETHYLENE GLYCOL 3350 17 GM PACKET. PO SCH (09:00)
[2018-11-09] MEDS: LURASIDONE 40 MG TABLET. PO SCH (09:00)
[2018-11-09] MEDS: FOLIC ACID 1 MG TABLET. PO SCH (09:00)
--- NOTE | 2018-11-09 09:01 | RAD ---
PQRS Compliance statement: One or more of the following individualized dose reduction techniques were utilized for this examination: 1. Automated exposure control. 2. Adjustment of the mA and/or kV according to patient size. 3. Use of iterative reconstruction technique. Indication:N/V EVAL FOR INTRACRANIAL LESION NO PREV INJ 75ML OMNI 300 TECHNIQUE: CT head without and without IV contrast COMPARISON: None FINDINGS: No pathologic extra-axial or intra-axial fluid collection. The ventricles and basal cisterns are within normal limits. No acute intracranial bleed. No focal loss of sherwood-white differentiation. No enhancing mass occupying brain lesion. The orbits are within normal limits. The major dural venous sinuses are patent. No suspicious bony lesion. The visualized paranasal sinuses and mastoid air cells are clear. IMPRESSION: No acute intracranial process. Electronically signed by: Domo Tovar DO (11/09/2018 8:58 AM) [facility]
[2018-11-09] MEDS: LACTOBACILLUS RHAMNOSUS GG 1 CAPSULE. PO SCH ×2 (10:14→21:18)
[2018-11-09] MEDS: CIPROFLOXACIN HCL 250 MG TABLET. PO SCH ×2 (10:14→21:18)
[2018-11-09] MEDS: LOSARTAN POTASSIUM 50 MG TABLET. PO SCH (10:15)
[2018-11-09] MEDS: MAGNESIUM OXIDE 400 MG TABLET PO SCH (10:15)
[2018-11-09] MEDS: CARVEDILOL 3.125 MG TABLET. PO SCH ×2 (10:17→18:16)
[2018-11-09 11:11] VITALS: BP 143/95
--- NOTE | 2018-11-09 12:02 | PDOC ---
PROGRESS NOTES Chief Complaint Chief Complaint impression Chest pain acute coronary syndrome ruled out History of pulmonary embolism last year Old thrombus noted, back on anticoagulation linear filling defects in the bilateral pulmonary arteries which could be secondary to old recanalized embolus. 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 Non adherence to PPI and carafate for ulcer treatment Inability to tolerate PO today History of IVC filter placement Obesity with BMI of 34 Transaminitis most likely secondary to steatohepatitis Mild bilirubinemia Hypokalemia and hyponatremia as a consequence of her poor oral intake, on replacement intractable nausea persists hypertension, suboptimal control History of Present Illness History of Present Illness discussed results of EGD with pateint, small bowel follow through ordered by sales support consultant Will follow recommendations from sales support consultant. Vitals Vitals Vital Signs Date Time Temp Pulse Resp B/P (MAP) Pulse Ox O2 Delivery O2 Flow Rate FiO2 11/09/18 11:11 99.4 104 18 143/95 (111) 96 Room Air 99.4 11/08/18 10:02 2 Physical Exam General: Alert, Oriented X3, Cooperative, No acute distress, mild distress Heart: Regular rate (SR), Normal S1, Normal S2, Other (2/6 systolic murmur to LLS border) Lungs: Clear Abdomen: Soft, No tenderness Extremities: No clubbing, No cyanosis, No edema Skin: No breakdown Labs LABS PROCEDURE: CT ANGIOGRAPHY CHEST INDICATION: SOB; EVAL FOR PE; OMNI 350, 75ML COMPARISON: March 2018 TECHNIQUE: Axial CT images obtained through the chest. Intravenous contrast utilized. Angiogram 3D images processed per protocol. One or more of the following individualized dose reduction techniques were utilized for this examination: 1. Automated exposure control; 2. Adjustment of the mA and/or kV according to patient size; 3. Use of iterative reconstruction technique. FINDINGS: Partially visualized liver is very low density. Partial visualization of inferior vena cava filter. Postoperative changes to the stomach. Portion of ascending thoracic aorta is obscured by motion but no aneurysm seen in visualized portions. Degenerative changes the spine. Mild patchy groundglass opacity left upper lung. No evidence of pneumothorax. Severe degenerative changes left shoulder. There are some linear filling defects in the bilateral pulmonary arteries. IMPRESSION: Repeat demonstration of some linear filling defects in the bilateral pulmonary arteries which could be secondary to old recanalized embolus. Liver is low-attenuation. Nonspecific but can be seen with fatty infiltration. Mild patchy groundglass opacity in left lung. Could be secondary to small airway inflammation Electronically signed by: Fab Rand MD (11/07/2018 1:50 AM) [facility] Indication: Lower abdominal pain, nausea and vomiting. History of Dorcas-en-Y. TECHNIQUE: Small bowel follow-through with thin barium with total fluoroscopy time of 1.4 minutes and multiple images. COMPARISON: None FINDINGS: The team guide image demonstrates no abnormally dilated bowel loops. Infrarenal IVC filter. Right upper quadrant clips suggesting cholecystectomy. Prompt opacification of the stomach and jejunal loops is seen. Significantly delayed passage of contrast is seen through the colon. Contrast reaches the colon at 285 minutes. No stricture seen in the stomach or at the gastrojejunal anastomosis. IMPRESSION: 1. No bowel obstruction. 2. No anastomotic stricture at the gastrojejunal junction. Electronically signed by: Domo Hart DO (11/08/2018 4:37 PM) [facility] DICTATED and SIGNED BY: DOMO HART DO DATE: 11/08/181636 Assessment and Plan Assessmemt and Plan Problems Medical Problems: (1) Chest pain Status: Acute (2) Elevated bilirubin Status: Acute Comment Review of Relevant I have reviewed the following items leo (where applicable) has been applied. Labs Laboratory Tests Test 11/07/18 14:40 Iron Level 124 ug/dL (50-170) Total Iron Binding Capacity 112 ug/dL (250-450) Iron Saturation % (15-34) Hepatitis A IgM Antibody Nonreactive (Nonreactive) Hepatitis B Surface Antigen Nonreactive (Nonreactive) Hepatitis B Core IgM Antibody Nonreactive (Nonreactive) Hepatitis C IgG Antibody Nonreactive (Nonreactive) Microbiology 11/06/18 Urine Culture - Preliminary, Resulted 11/06/18 Urine Culture Result 1 (ALEAH) - Preliminary, Resulted Medications Current Medications Aspirin (Children'S Aspirin) 324 mg 1X ONCE PO Last administered on 11/06/18at 10:44; Start 11/06/18 at 09:15; Stop 11/06/18 at 09:18; Status DC Morphine Sulfate (Morphine Sulfate) 4 mg PRN Q15MIN PRN IV/SQ PAIN GREATER THAN 3/10 Last administered on 11/06/18at 13:14; Start 11/06/18 at 09:15; Stop at 09:14; Status DC Ondansetron HCl (Zofran) 4 mg 1X ONCE IV Last administered on 11/06/18at 10:44 ; Start 11/06/18 at 09:15; Stop 11/06/18 at 09:18; Status DC Iohexol (Omnipaque 350 Mg/ml) 100 ml 1X ONCE IV Last administered on at 22:00; Start 11/06/18 at 11:30; Stop 11/06/18 at 11:33; Status DC Info (CONTRAST GIVEN -- Rx MONITORING) 1 each PRN DAILY PRN MC SEE COMMENTS; Start 11/06/18 at 11:45; Stop 11/08/18 at 11:44; Status DC Levofloxacin/ Dextrose 100 ml @ 100 mls/hr 1X ONCE IV Last administered on at 15:30; Start 11/06/18 at 13:15; Stop 11/06/18 at 14:14; Status DC Ondansetron HCl (Zofran) 4 mg PRN Q4HRS PRN IV NAUSEA/VOMITING Last administered on 11/09/18at 11:08; Start 11/06/18 at 13:30 Zolpidem Tartrate (Ambien) 5 mg PRN QHS PRN PO INSOMNIA; Start 11/06/18 at 13: 30 Acetaminophen (Tylenol) 650 mg PRN Q4HRS PRN PO TEMP OVER 100.4F OR MILD PAIN Last administered on 11/06/18at 17:10; Start 11/06/18 at 13:30 Al Hydroxide/Mg Hydroxide (Mylanta Plus Xs) 30 ml PRN DAILY PRN PO HEARTBURN / GAS; Start 11/06/18 at 13:30 Clonidine HCl (Catapres) 0.1 mg PRN Q6HRS PRN PO SBP>160 OR DBP>90; Start 11/06 at 13:30 Diphenhydramine HCl (Benadryl) 25 mg PRN Q4HRS PRN IVP ITCHING; Start 11/06/18 at 13:30 Docusate Sodium (Colace) 100 mg PRN BID PRN PO CONSTIPATION; Start 11/06/18 at 13:30 Albuterol Sulfate (Ventolin Neb Soln) 2.5 mg PRN Q4HRS PRN NEB SHORTNESS OF BREATH; Start 11/06/18 at 13:30 Guaifenesin (Robitussin) 200 mg PRN Q4HRS PRN PO COUGH; Start 11/06/18 at 13:30 Lorazepam (Ativan) 0.5 mg PRN Q4HRS PRN PO ANXIETY / AGITATION; Start 11/06/18 at 13:30 Carvedilol (Coreg) 3.125 mg BIDWMEALS PO Last administered on 11/09/18 10:17; Start 11/06/18 at 17:00 Folic Acid (Folic Acid) 1 mg DAILY PO Last administered on 11/07/18 08:21; Start 11/06/18 at 15:00 Losartan Potassium (Cozaar) 100 mg DAILY PO Last administered on 11/09/18 10: 15; Start 11/06/18 at 15:00 Lurasidone HCl (Latuda) 40 mg DAILY PO Last administered on 11/08/18at 15:11; Start 11/06/18 at 15:00 Ergocalciferol (Vitamin D2) 50,000 unit WEEKLY PO ; Start 11/06/18 at 15:00 Magnesium Oxide (Magnesium Oxide) 200 mg DAILY PO Last administered on 10:15; Start 11/06/18 at 15:00 Rivaroxaban (Xarelto) 20 mg DAILYWSUP PO ; Start 11/06/18 at 17:00; Stop at 17:00; Status DC Sucralfate (Carafate) 1 gm QIDACHS PO Last administered on 11/08/18at 20:45; Start 11/06/18 at 16:30 Pantoprazole Sodium (Protonix) 40 mg BIDAC PO Last administered on 11/09/18 07 :03; Start 11/06/18 at 16:30 Info (Anti-Coagulation Monitoring By Pharmacy) 1 each PRN DAILY PRN MC SEE COMMENTS Last administered on 11/07/18 10:59; Start 11/06/18 at 14:15 Potassium Chloride (KCl Oral Soln) 20 meq 1X ONCE PEG Last administered on 17:09; Start 11/06/18 at 15:00; Stop 11/06/18 at 15:01; Status DC Heparin Sodium/ Dextrose 500 ml @ 0 mls/hr CONT PRN IV SEE I/O RECORD; Start at 16:30; Status UNV Heparin Sodium (Porcine) (Heparin Sodium) 6,600 unit 1X ONCE IV Last administered on 11/06/18at 17:20; Start 11/06/18 at 16:30; Stop 11/07/18 at 09:48 ; Status DC Heparin Sodium/ Dextrose 500 ml @ 0 mls/hr CONT PRN IV SEE I/O RECORD Last administered on 11/06/18at 17:32; Start 11/06/18 at 16:30; Stop 11/07/18 at 09:48 ; Status DC Heparin Sodium (Porcine) (Heparin Sodium) 2,500 unit PRN Q6HRS PRN IV FOR UFH LEVEL LESS THAN 0.2; Start 11/06/18 at 16:30; Stop 11/07/18 at 09:48; Status DC Heparin Sodium (Porcine) (Heparin Sodium) 1,200 unit PRN Q6HRS PRN IV FOR UFH LEVEL 0.2 - 0.29; Start 11/06/18 at 16:30; Stop 11/07/18 at 09:48; Status DC Morphine Sulfate (Morphine Sulfate) 2 mg Q3HRS PRN IV PAIN Last administered on 11/09/18at 11:08; Start 11/06/18 at 19:30 Iohexol (Omnipaque 350 Mg/ml) 100 ml STK-MED ONCE .ROUTE ; Start 11/07/18 at 02: 38; Stop 11/07/18 at 02:39; Status DC Rivaroxaban (Xarelto) 20 mg DAILYWSUP PO Last administered on 11/08/18at 18:11; Start 11/07/18 at 10:00 Bisacodyl (Dulcolax Tab) 5 mg 1X ONCE PO Last administered on 11/07/18at 13:40 ; Start 11/07/18 at 14:00; Stop 11/07/18 at 14:01; Status DC Polyethylene Glycol (miraLAX PACKET) 17 gm DAILY PO Last administered on at 13:40; Start 11/07/18 at 14:00 Midazolam HCl (Versed) 2 mg PRN 1X PRN IV PRIOR TO PROCEDURE; Start 11/08/18 at 09:30; Stop 11/09/18 at 09:29; Status DC Ringer's Solution 1,000 ml @ 125 mls/hr Q8H IV Last administered on 11/08/18at 09:28; Start 11/08/18 at 09:24; Stop 11/08/18 at 21:23; Status DC Lidocaine HCl (Xylocaine-Mpf 1% 2ml Vial) 2 ml 1X PRN PRN ID IV START; Start at 09:30; Stop 11/09/18 at 09:29; Status DC Barium Sulfate (Liquid E-Z Paque) 711 ml 1X ONCE PO Last administered on at 10:15; Start 11/08/18 at 10:15; Stop 11/08/18 at 10:17; Status DC Ciprofloxacin (Cipro) 500 mg BID PO Last administered on 11/09/18at 10:14; Start 11/08/18 at 15:00 Iohexol (Omnipaque 300 Mg/ml) 70 ml 1X ONCE IV Last administered on 11/08/18at 08:36; Start 11/08/18 at 17:15; Stop 11/08/18 at 17:16; Status DC Info (CONTRAST GIVEN -- Rx MONITORING) 1 each PRN DAILY PRN MC SEE COMMENTS; Start 11/08/18 at 17:15; Stop 11/10/18 at 17:14 Lactobacillus Rhamnosus (Culturelle) 1 cap BID PO Last administered on at 10:14; Start 11/09/18 at 09:00 Active Scripts Active Cozaar (Losartan Potassium) 50 Mg Tablet 100 Mg PO DAILY 30 Days Carafate (Sucralfate) 1 Gm Tablet 1 Gm PO QIDACHS [Pantoprazole] 40 MG Tablet.dr 40 Mg PO BIDAC Reported Carvedilol 3.125 Mg Tablet 3.125 Mg PO BIDWMEALS Xarelto (Rivaroxaban) 20 Mg Tablet 20 Mg PO DAILY Latuda (Lurasidone Hcl) 40 Mg Tablet 40 Mg PO DAILY Vitamin D3 (Cholecalciferol (Vitamin D3)) 50,000 Unit Capsule 50,000 Unit PO WEEKLY Folic Acid 1 Mg Tablet 1 Mg PO DAILY Magnesium Oxide 400 Mg Tablet 250 Mg PO DAILY Vitals/I & O Vital Sign - Last 24 Hours 11/08/18 11/08/18 11/08/18 11/08/18 14:47 15:01 15:11 15:11 Temp 98.6 98.6 Pulse 104 107 107 Resp 16 B/P (MAP) 137/87 (104) 137/89 137/89 Pulse Ox 98 O2 Delivery Room Air Room Air 11/08/18 11/08/18 11/08/18 11/08/18 18:11 19:50 19:55 23:25 Temp 99.3 98.5 99.3 98.5 Pulse 111 90 Resp 17 15 B/P (MAP) 130/83 (99) 92/61 (71) Pulse Ox 97 94 O2 Delivery Room Air Room Air Room Air Room Air 11/09/18 11/09/18 11/09/18 11/09/18 01:18 03:51 07:05 07:27 Temp 98.4 98.5 98.4 98.5 Pulse 89 104 Resp 15 18 B/P (MAP) 102/57 (72) 121/84 (96) Pulse Ox 95 94 O2 Delivery Room Air Room Air Room Air Room Air 11/09/18 11/09/18 11/09/18 11/09/18 07:30 08:00 10:15 10:17 Pulse 104 104 B/P (MAP) 121/84 121/84 O2 Delivery Room Air Room Air 11/09/18 11/09/18 11:08 11:11 Temp 99.4 99.4 Pulse 104 Resp 18 B/P (MAP) 143/95 (111) Pulse Ox 96 O2 Delivery Room Air Room Air Intake and Output 11/08/18 11/08/18 11/09/18 14:59 22:59 06:59 Intake Total 900 ml 420 ml 240 ml Output Total 800 ml 300 ml Balance 900 ml -380 ml -60 ml DANITA ZENDEJAS MD Nov 09, 2018 12:02
--- NOTE | 2018-11-09 12:05 | PDOC ---
Subjective: Subjective: Reports vomiting after eating - most recently broth. "I haven't eaten in weeks. " Objective: Vital Signs: Vital Signs Date Time Temp Pulse Resp B/P (MAP) Pulse Ox O2 Delivery O2 Flow Rate FiO2 11/09/18 11:11 99.4 104 18 143/95 (111) 96 Room Air 99.4 11/08/18 10:02 2 Imaging: Head CT IMPRESSION: No acute intracranial process. SBS IMPRESSION: 1. No bowel obstruction. 2. No anastomotic stricture at the gastrojejunal junction. EGD E--Healed esophagitis, baseline grade indeterminate, at 30cm. G--S/p sabi-en-Y. Prior ulcer healed with visible staple. D--Sabi limb normal to extent of exam. IMP: Healed reflux S/p sabi-en-Y Interval healing of prior anastomotic ulcer; cause of current issues unclear. Normal sonogram this admission. PE: GEN: was cough/retching when I walked in LUNGS: CTAB HEART: tachycardic ABD: S/ND/NT NEURO/PSYCH: A & O 3, flat A/P: Nausea/retching GERD, s/p Sabi-en-Y Elevated LFTs, hepatic steatosis, s/p spring -- Ongoing nausea, workup unrevealing. Continue PPI and Carafate. ?Reglan - will review w/ Dr. Watt. Recheck LFTs, await pending labs. SHAMIR DAMON Nov 09, 2018 12:05
--- NOTE | 2018-11-09 12:14 | PDOC ---
PULMONARY PROGRESS NOTES Subjective on going nausea/ emesis inability to eat Vitals Vital Signs Date Time Temp Pulse Resp B/P (MAP) Pulse Ox O2 Delivery O2 Flow Rate FiO2 11/09/18 11:11 99.4 104 18 143/95 (111) 96 Room Air 99.4 11/08/18 10:02 2 General: Lethargic Lungs: Clear Cardiovascular: S1, S2 Abdomen: Soft, Other (obese) Extremities: Other (1+edema) Labs Laboratory Tests Test 11/07/18 14:40 Iron Level 124 ug/dL (50-170) Total Iron Binding Capacity 112 ug/dL (250-450) Iron Saturation % (15-34) Hepatitis A IgM Antibody Nonreactive (Nonreactive) Hepatitis B Surface Antigen Nonreactive (Nonreactive) Hepatitis B Core IgM Antibody Nonreactive (Nonreactive) Hepatitis C IgG Antibody Nonreactive (Nonreactive) Medications Active Scripts Medications Dose Route/Sig Max Daily Dose Days Date Category Cozaar (Losartan Potassium) 50 Mg Tablet 100 Mg PO DAILY 30 07/05/18 Rx Carafate (Sucralfate) 1 Gm Tablet 1 Gm PO QIDACHS 04/21/18 Rx [Pantoprazole] 40 MG Tablet.dr 40 Mg PO BIDAC 04/21/18 Rx Carvedilol 3.125 Mg Tablet 3.125 Mg PO BIDWMEALS 04/18/18 Reported Xarelto (Rivaroxaban) 20 Mg Tablet 20 Mg PO DAILY 04/18/18 Reported Latuda (Lurasidone Hcl) 40 Mg Tablet 40 Mg PO DAILY 04/18/18 Reported Vitamin D3 (Cholecalciferol (Vitamin D3)) 50,000 Unit Capsule 50,000 Unit PO WEEKLY 04/18/18 Reported Folic Acid 1 Mg Tablet 1 Mg PO DAILY 04/18/18 Reported Magnesium Oxide 400 Mg Tablet 250 Mg PO DAILY 04/18/18 Reported Impression . 1. The patient with history of pulmonary embolism and deep venous thrombosis, now comes in with chest pain, which is probably related to her anastomotic ulcer. The CT angiogram and V/Q scan have been reviewed and do not show any new blood clot. The CTA shows chronic linear clot and the V/Q scan shows mismatched defect in the left lower lobe. The venous Doppler shows nonocclusive thrombus. 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 We need to closely monitor for any anemia or bleeding while on anticoagulation. 2. No history of hypercoagulable state. 3. Morbid obesity with decreased ambulation. 4. Loss of appetite secondary to ulcer, resulting in decreased oral intake. 5. s/p EGD/ small bowel series/ healed anastomotic ulcer Plan . 1. Continue Xarelto. 2. I would recommend to have the patient follow up with [facility] where she has been regularly followed up and make future recommendation regarding continuation of Xarelto. 3. GI rec regarding ongoing nausea 4. Increase ambulation. 5. Weight loss is strongly emphasized. 6. Discussed with RN. GERMÁN COLEMAN MD Nov 09, 2018 12:14
--- NOTE | 2018-11-09 12:58 | NUR ---
SS following up with discharge planning. Discharge disposition remains home with spouse. Pt is currently on room air. No discharge needs noted at this time. SS will continue to follow for pending discharge needs.
[2018-11-09 15:20] VITALS: BP 141/92
[2018-11-09 17:06] LABS: ALBUMIN 1.8 g/dL (3.4-5.0); ALBUMIN/GLOBULIN RATIO 0.5 (1.0-1.7); CALCIUM 7.8 mg/dL (8.5-10.1); CREATININE 0.8 mg/dL (0.6-1.0); GFR 93.9; TOTAL BILIRUBIN 3.9 mg/dL (0.2-1.0); TOTAL PROTEIN 5.1 g/dL (6.4-8.2)
[2018-11-09 17:07] LABS: ALBUMIN 1.9 g/dL (3.4-5.0); DIRECT BILIRUBIN 3.4 mg/dL (0.0-0.2); TOTAL PROTEIN 5.1 g/dL (6.4-8.2)
[2018-11-09 17:17] LABS: POTASSIUM 2.8 mmol/L (3.5-5.1)
[2018-11-09] MEDS: RIVAROXABAN 10 MG TABLET. PO SCH (18:16)
[2018-11-09] MEDS ORDERED: POTASSIUM CHLORIDE 20 MEQ TABLET.ER. PO ONE (19:00)
[2018-11-09 19:40] VITALS: BP 129/81
[2018-11-09 23:17] VITALS: BP 120/78
[2018-11-10 03:26] VITALS: BP 150/94
[2018-11-10] MEDS: MORPHINE SULFATE 2 MG/ML VIAL. IV PRN ×5 (05:17→19:42)
[2018-11-10] MEDS: ONDANSETRON PF 4 MG/2 ML VIAL. IV PRN ×3 (05:23→19:42)
[2018-11-10 06:56] LABS: BASO % 1 % (0-3); EOS % 1 % (0-3); HEMATOCRIT 27.1 % (36.0-47.0); HEMOGLOBIN 8.9 g/dL (12.0-15.5); LYMPH # 1.2 x10^3/uL (1.0-4.8); LYMPH % 36 % (24-48); MEAN CORPUSCULAR HEMOGLOBIN 31 pg (25-35); MEAN CORPUSCULAR HGB CONC 33 g/dL (31-37); MEAN CORPUSCULAR VOLUME 93 fL (79-100); MONO # 0.3 x10^3/uL (0.0-1.1); MONO % 8 % (0-9); NEUT # 1.9 x10^3uL (1.8-7.7); NEUT % 55 % (31-73); PLATELET COUNT 255 x10^3/uL (140-400); RED BLOOD COUNT 2.92 x10^6/uL (3.50-5.40); RED CELL DISTRIBUTION WIDTH 17.2 % (11.5-14.5); WHITE BLOOD COUNT 3.5 x10^3/uL (4.0-11.0)
[2018-11-10 07:00] VITALS: BP 130/81
[2018-11-10 07:20] LABS: CALCIUM 7.5 mg/dL (8.5-10.1); CREATININE 0.7 mg/dL (0.6-1.0); GFR 109.5
[2018-11-10] MEDS: CARVEDILOL 3.125 MG TABLET. PO SCH ×2 (08:32→16:17)
[2018-11-10] MEDS: CIPROFLOXACIN HCL 250 MG TABLET. PO SCH (08:32)
[2018-11-10] MEDS: PANTOPRAZOLE 40 MG TABLET.DR. PO SCH ×2 (08:32→16:18)
[2018-11-10] MEDS: LOSARTAN POTASSIUM 50 MG TABLET. PO SCH (08:32)
[2018-11-10] MEDS: SUCRALFATE 1 GM TABLET. PO SCH ×4 (08:32→19:42)
[2018-11-10] MEDS: FOLIC ACID 1 MG TABLET. PO SCH (08:33)
[2018-11-10] MEDS: LACTOBACILLUS RHAMNOSUS GG 1 CAPSULE. PO SCH ×2 (08:33→19:42)
[2018-11-10] MEDS: POLYETHYLENE GLYCOL 3350 17 GM PACKET. PO SCH (08:33)
[2018-11-10] MEDS: LURASIDONE 40 MG TABLET. PO SCH (08:33)
[2018-11-10] MEDS: MAGNESIUM OXIDE 400 MG TABLET PO SCH (08:33)
[2018-11-10 09:13] LABS: % BANDS 4 % (0-9); % EOS 3 % (0-5); % LYMPHS 27 % (24-48); % MONOS 6 % (0-10); % MYELOS 1 % (0-0); % SEGS 59 % (35-66); PLT ESTIMATE ADEQUATE (ADEQUATE)
[2018-11-10 09:14] LABS: ANISOCYTOSIS PRESENT; HOWELL-JOLLY BODIES PRESENT; POIKILOCYTOSIS PRESENT; POLYCHROMASIA PRESENT; TARGET CELLS PRESENT
--- NOTE | 2018-11-10 09:31 | NUR ---
IP: Pt is + for (R) E.coli with ESBL in urine requiring contact precautions.
--- NOTE | 2018-11-10 10:13 | PDOC ---
PROGRESS NOTES Chief Complaint Chief Complaint impression Chest pain acute coronary syndrome ruled out History of pulmonary embolism last year Old thrombus noted, back on anticoagulation linear filling defects in the bilateral pulmonary arteries which could be secondary to old recanalized embolus. 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 Non adherence to PPI and carafate for ulcer treatment Inability to tolerate PO well persists History of IVC filter placement Obesity with BMI of 34 Transaminitis most likely secondary to steatohepatitis Mild bilirubinemia Hypokalemia and hyponatremia as a consequence of her poor oral intake, on replacement intractable nausea persists hypertension, suboptimal control 11/10 persistent wheezing not improved states she has no breathing treatments in last 24 hrs History of Present Illness History of Present Illness discussed results of EGD with pateint, small bowel follow through ordered by test consultant Will follow recommendations from test consultant. Vitals Vitals Vital Signs Date Time Temp Pulse Resp B/P (MAP) Pulse Ox O2 Delivery O2 Flow Rate FiO2 11/10/18 09:14 20 Room Air 11/10/18 08:44 96 11/10/18 08:32 76 130/81 11/10/18 07:00 98.7 98.7 Physical Exam General: Alert, Oriented X3, Cooperative, No acute distress, mild distress Heart: Regular rate (SR), Normal S1, Normal S2, Other (2/6 systolic murmur to LLS border) Lungs: Clear, Wheezing Abdomen: Soft, No tenderness Extremities: No clubbing, No cyanosis, No edema Skin: No breakdown Labs LABS Laboratory Tests Test 11/09/18 16:15 11/10/18 06:30 Sodium Level 143 mmol/L (136-145) 142 mmol/L (136-145) Potassium Level 2.8 mmol/L (3.5-5.1) 3.0 mmol/L (3.5-5.1) Chloride Level 107 mmol/L (98-107) 108 mmol/L (98-107) Carbon Dioxide Level 22 mmol/L (21-32) 22 mmol/L (21-32) Anion Gap 14 (6-14) 12 (6-14) Blood Urea Nitrogen 2 mg/dL (7-20) 3 mg/dL (7-20) Creatinine 0.8 mg/dL (0.6-1.0) 0.7 mg/dL (0.6-1.0) Estimated GFR (Cockcroft-Gault) 93.9 109.5 BUN/Creatinine Ratio 3 (6-20) Glucose Level 169 mg/dL (70-99) 177 mg/dL (70-99) Calcium Level 7.8 mg/dL (8.5-10.1) 7.5 mg/dL (8.5-10.1) Total Bilirubin 3.9 mg/dL (0.2-1.0) Direct Bilirubin 3.4 mg/dL (0.0-0.2) Aspartate Amino Transf (AST/SGOT) 191 U/L (15-37) Alanine Aminotransferase (ALT/SGPT) 97 U/L (14-59) Alkaline Phosphatase 121 U/L (46-116) Total Protein 5.1 g/dL (6.4-8.2) Albumin 1.8 g/dL (3.4-5.0) Albumin/Globulin Ratio 0.5 (1.0-1.7) Cytomegalovirus IgG Antibody >10.00 U/mL (0.00-0.59) Cytomegalovirus IgM Antibody <30.0 AU/mL (0.0-29.9) Nelsy-Dutta Virus Capsid Ag IgG Ab >600.0 U/mL (0.0-17.9) Nelsy-Dutta Virus Capsid Ag IgM Ab <36.0 U/mL (0.0-35.9) Nelsy-Dutta Early Antigen IgG Ab 20.3 U/mL (0.0-8.9) Nelsy-Dutta Nuc Assoc Ag IgG Index 356.0 U/mL (0.0-17.9) Nelsy-Dutta Virus Interpretation Comment (.) White Blood Count 3.5 x10^3/uL (4.0-11.0) Red Blood Count 2.92 x10^6/uL (3.50-5.40) Hemoglobin 8.9 g/dL (12.0-15.5) Hematocrit 27.1 % (36.0-47.0) Mean Corpuscular Volume 93 fL (79-100) Mean Corpuscular Hemoglobin 31 pg (25-35) Mean Corpuscular Hemoglobin Concent 33 g/dL (31-37) Red Cell Distribution Width 17.2 % (11.5-14.5) Platelet Count 255 x10^3/uL (140-400) Neutrophils (%) (Auto) 55 % (31-73) Lymphocytes (%) (Auto) 36 % (24-48) Monocytes (%) (Auto) 8 % (0-9) Eosinophils (%) (Auto) 1 % (0-3) Basophils (%) (Auto) 1 % (0-3) Neutrophils # (Auto) 1.9 x10^3uL (1.8-7.7) Lymphocytes # (Auto) 1.2 x10^3/uL (1.0-4.8) Monocytes # (Auto) 0.3 x10^3/uL (0.0-1.1) Eosinophils # (Auto) 0.0 x10^3/uL (0.0-0.7) Basophils # (Auto) 0.0 x10^3/uL (0.0-0.2) Segmented Neutrophils % 59 % (35-66) Band Neutrophils % 4 % (0-9) Lymphocytes % 27 % (24-48) Monocytes % 6 % (0-10) Eosinophils % 3 % (0-5) Myelocytes % 1 % (0-0) Platelet Estimate Adequate (ADEQUATE) Polychromasia Present Poikilocytosis Present Anisocytosis Present Macrocytosis Present Target Cells Present [place] Bodies Present Assessment and Plan Assessmemt and Plan Problems Medical Problems: (1) Chest pain Status: Acute (2) Elevated bilirubin Status: Acute Comment Review of Relevant I have reviewed the following items leo (where applicable) has been applied. Labs Laboratory Tests Test 11/09/18 16:15 11/10/18 06:30 Sodium Level 143 mmol/L (136-145) 142 mmol/L (136-145) Potassium Level 2.8 mmol/L (3.5-5.1) 3.0 mmol/L (3.5-5.1) Chloride Level 107 mmol/L (98-107) 108 mmol/L (98-107) Carbon Dioxide Level 22 mmol/L (21-32) 22 mmol/L (21-32) Anion Gap 14 (6-14) 12 (6-14) Blood Urea Nitrogen 2 mg/dL (7-20) 3 mg/dL (7-20) Creatinine 0.8 mg/dL (0.6-1.0) 0.7 mg/dL (0.6-1.0) Estimated GFR (Cockcroft-Gault) 93.9 109.5 BUN/Creatinine Ratio 3 (6-20) Glucose Level 169 mg/dL (70-99) 177 mg/dL (70-99) Calcium Level 7.8 mg/dL (8.5-10.1) 7.5 mg/dL (8.5-10.1) Total Bilirubin 3.9 mg/dL (0.2-1.0) Direct Bilirubin 3.4 mg/dL (0.0-0.2) Aspartate Amino Transf (AST/SGOT) 191 U/L (15-37) Alanine Aminotransferase (ALT/SGPT) 97 U/L (14-59) Alkaline Phosphatase 121 U/L (46-116) Total Protein 5.1 g/dL (6.4-8.2) Albumin 1.8 g/dL (3.4-5.0) Albumin/Globulin Ratio 0.5 (1.0-1.7) Cytomegalovirus IgG Antibody >10.00 U/mL (0.00-0.59) Cytomegalovirus IgM Antibody <30.0 AU/mL (0.0-29.9) Nelsy-Dutta Virus Capsid Ag IgG Ab >600.0 U/mL (0.0-17.9) Nelsy-Dutta Virus Capsid Ag IgM Ab <36.0 U/mL (0.0-35.9) Nelsy-Dutta Early Antigen IgG Ab 20.3 U/mL (0.0-8.9) Nelsy-Dutta Nuc Assoc Ag IgG Index 356.0 U/mL (0.0-17.9) Nelsy-Dutta Virus Interpretation Comment (.) White Blood Count 3.5 x10^3/uL (4.0-11.0) Red Blood Count 2.92 x10^6/uL (3.50-5.40) Hemoglobin 8.9 g/dL (12.0-15.5) Hematocrit 27.1 % (36.0-47.0) Mean Corpuscular Volume 93 fL (79-100) Mean Corpuscular Hemoglobin 31 pg (25-35) Mean Corpuscular Hemoglobin Concent 33 g/dL (31-37) Red Cell Distribution Width 17.2 % (11.5-14.5) Platelet Count 255 x10^3/uL (140-400) Neutrophils (%) (Auto) 55 % (31-73) Lymphocytes (%) (Auto) 36 % (24-48) Monocytes (%) (Auto) 8 % (0-9) Eosinophils (%) (Auto) 1 % (0-3) Basophils (%) (Auto) 1 % (0-3) Neutrophils # (Auto) 1.9 x10^3uL (1.8-7.7) Lymphocytes # (Auto) 1.2 x10^3/uL (1.0-4.8) Monocytes # (Auto) 0.3 x10^3/uL (0.0-1.1) Eosinophils # (Auto) 0.0 x10^3/uL (0.0-0.7) Basophils # (Auto) 0.0 x10^3/uL (0.0-0.2) Segmented Neutrophils % 59 % (35-66) Band Neutrophils % 4 % (0-9) Lymphocytes % 27 % (24-48) Monocytes % 6 % (0-10) Eosinophils % 3 % (0-5) Myelocytes % 1 % (0-0) Platelet Estimate Adequate (ADEQUATE) Polychromasia Present Poikilocytosis Present Anisocytosis Present Macrocytosis Present Target Cells Present [place] Bodies Present Laboratory Tests Test 11/09/18 16:15 11/10/18 06:30 Sodium Level 143 mmol/L (136-145) 142 mmol/L (136-145) Potassium Level 2.8 mmol/L (3.5-5.1) 3.0 mmol/L (3.5-5.1) Chloride Level 107 mmol/L (98-107) 108 mmol/L (98-107) Carbon Dioxide Level 22 mmol/L (21-32) 22 mmol/L (21-32) Anion Gap 14 (6-14) 12 (6-14) Blood Urea Nitrogen 2 mg/dL (7-20) 3 mg/dL (7-20) Creatinine 0.8 mg/dL (0.6-1.0) 0.7 mg/dL (0.6-1.0) Estimated GFR (Cockcroft-Gault) 93.9 109.5 BUN/Creatinine Ratio 3 (6-20) Glucose Level 169 mg/dL (70-99) 177 mg/dL (70-99) Calcium Level 7.8 mg/dL (8.5-10.1) 7.5 mg/dL (8.5-10.1) Total Bilirubin 3.9 mg/dL (0.2-1.0) Direct Bilirubin 3.4 mg/dL (0.0-0.2) Aspartate Amino Transf (AST/SGOT) 191 U/L (15-37) Alanine Aminotransferase (ALT/SGPT) 97 U/L (14-59) Alkaline Phosphatase 121 U/L (46-116) Total Protein 5.1 g/dL (6.4-8.2) Albumin 1.8 g/dL (3.4-5.0) Albumin/Globulin Ratio 0.5 (1.0-1.7) Cytomegalovirus IgG Antibody >10.00 U/mL (0.00-0.59) Cytomegalovirus IgM Antibody <30.0 AU/mL (0.0-29.9) Nelsy-Dutta Virus Capsid Ag IgG Ab >600.0 U/mL (0.0-17.9) Nelsy-Dutta Virus Capsid Ag IgM Ab <36.0 U/mL (0.0-35.9) Nelsy-Dutta Early Antigen IgG Ab 20.3 U/mL (0.0-8.9) Nelsy-Dutta Nuc Assoc Ag IgG Index 356.0 U/mL (0.0-17.9) Nelsy-Dutta Virus Interpretation Comment (.) White Blood Count 3.5 x10^3/uL (4.0-11.0) Red Blood Count 2.92 x10^6/uL (3.50-5.40) Hemoglobin 8.9 g/dL (12.0-15.5) Hematocrit 27.1 % (36.0-47.0) Mean Corpuscular Volume 93 fL (79-100) Mean Corpuscular Hemoglobin 31 pg (25-35) Mean Corpuscular Hemoglobin Concent 33 g/dL (31-37) Red Cell Distribution Width 17.2 % (11.5-14.5) Platelet Count 255 x10^3/uL (140-400) Neutrophils (%) (Auto) 55 % (31-73) Lymphocytes (%) (Auto) 36 % (24-48) Monocytes (%) (Auto) 8 % (0-9) Eosinophils (%) (Auto) 1 % (0-3) Basophils (%) (Auto) 1 % (0-3) Neutrophils # (Auto) 1.9 x10^3uL (1.8-7.7) Lymphocytes # (Auto) 1.2 x10^3/uL (1.0-4.8) Monocytes # (Auto) 0.3 x10^3/uL (0.0-1.1) Eosinophils # (Auto) 0.0 x10^3/uL (0.0-0.7) Basophils # (Auto) 0.0 x10^3/uL (0.0-0.2) Segmented Neutrophils % 59 % (35-66) Band Neutrophils % 4 % (0-9) Lymphocytes % 27 % (24-48) Monocytes % 6 % (0-10) Eosinophils % 3 % (0-5) Myelocytes % 1 % (0-0) Platelet Estimate Adequate (ADEQUATE) Polychromasia Present Poikilocytosis Present Anisocytosis Present Macrocytosis Present Target Cells Present [place] Bodies Present Microbiology 11/06/18 Urine Culture - Final, Complete 11/06/18 Urine Culture Result 1 ([facility]) - Final, Complete 11/06/18 Antimicrobic Susceptibility - Final, Complete Medications Current Medications Aspirin (Children'S Aspirin) 324 mg 1X ONCE PO Last administered on 11/06/18at 10:44; Start 11/06/18 at 09:15; Stop 11/06/18 at 09:18; Status DC Morphine Sulfate (Morphine Sulfate) 4 mg PRN Q15MIN PRN IV/SQ PAIN GREATER THAN 3/10 Last administered on 11/06/18at 13:14; Start 11/06/18 at 09:15; Stop at 09:14; Status DC Ondansetron HCl (Zofran) 4 mg 1X ONCE IV Last administered on 11/06/18at 10:44 ; Start 11/06/18 at 09:15; Stop 11/06/18 at 09:18; Status DC Iohexol (Omnipaque 350 Mg/ml) 100 ml 1X ONCE IV Last administered on at 22:00; Start 11/06/18 at 11:30; Stop 11/06/18 at 11:33; Status DC Info (CONTRAST GIVEN -- Rx MONITORING) 1 each PRN DAILY PRN MC SEE COMMENTS; Start 11/06/18 at 11:45; Stop 11/08/18 at 11:44; Status DC Levofloxacin/ Dextrose 100 ml @ 100 mls/hr 1X ONCE IV Last administered on at 15:30; Start 11/06/18 at 13:15; Stop 11/06/18 at 14:14; Status DC Ondansetron HCl (Zofran) 4 mg PRN Q4HRS PRN IV NAUSEA/VOMITING Last administered on 11/10/18at 05:23; Start 11/06/18 at 13:30 Zolpidem Tartrate (Ambien) 5 mg PRN QHS PRN PO INSOMNIA; Start 11/06/18 at 13: 30 Acetaminophen (Tylenol) 650 mg PRN Q4HRS PRN PO TEMP OVER 100.4F OR MILD PAIN Last administered on 11/06/18at 17:10; Start 11/06/18 at 13:30 Al Hydroxide/Mg Hydroxide (Mylanta Plus Xs) 30 ml PRN DAILY PRN PO HEARTBURN / GAS; Start 11/06/18 at 13:30 Clonidine HCl (Catapres) 0.1 mg PRN Q6HRS PRN PO SBP>160 OR DBP>90; Start 11/06 at 13:30 Diphenhydramine HCl (Benadryl) 25 mg PRN Q4HRS PRN IVP ITCHING; Start 11/06/18 at 13:30 Docusate Sodium (Colace) 100 mg PRN BID PRN PO CONSTIPATION; Start 11/06/18 at 13:30 Albuterol Sulfate (Ventolin Neb Soln) 2.5 mg PRN Q4HRS PRN NEB SHORTNESS OF BREATH; Start 11/06/18 at 13:30 Guaifenesin (Robitussin) 200 mg PRN Q4HRS PRN PO COUGH; Start 11/06/18 at 13:30 Lorazepam (Ativan) 0.5 mg PRN Q4HRS PRN PO ANXIETY / AGITATION; Start 11/06/18 at 13:30 Carvedilol (Coreg) 3.125 mg BIDWMEALS PO Last administered on 11/10/18 08:32; Start 11/06/18 at 17:00 Folic Acid (Folic Acid) 1 mg DAILY PO Last administered on 3/22/19at 08:33; Start 11/06/18 at 15:00 Losartan Potassium (Cozaar) 100 mg DAILY PO Last administered on 11/10/18 08: 32; Start 11/06/18 at 15:00 Lurasidone HCl (Latuda) 40 mg DAILY PO Last administered on 11/10/18 08:33; Start 11/06/18 at 15:00 Ergocalciferol (Vitamin D2) 50,000 unit WEEKLY PO ; Start 11/06/18 at 15:00 Magnesium Oxide (Magnesium Oxide) 200 mg DAILY PO Last administered on 08:33; Start 11/06/18 at 15:00 Rivaroxaban (Xarelto) 20 mg DAILYWSUP PO ; Start 11/06/18 at 17:00; Stop at 17:00; Status DC Sucralfate (Carafate) 1 gm QIDACHS PO Last administered on 11/10/18 08:32; Start 11/06/18 at 16:30 Pantoprazole Sodium (Protonix) 40 mg BIDAC PO Last administered on 11/10/18 08 :32; Start 11/06/18 at 16:30 Info (Anti-Coagulation Monitoring By Pharmacy) 1 each PRN DAILY PRN MC SEE COMMENTS Last administered on 11/07/18at 10:59; Start 11/06/18 at 14:15 Potassium Chloride (KCl Oral Soln) 20 meq 1X ONCE PEG Last administered on 17:09; Start 11/06/18 at 15:00; Stop 11/06/18 at 15:01; Status DC Heparin Sodium/ Dextrose 500 ml @ 0 mls/hr CONT PRN IV SEE I/O RECORD; Start at 16:30; Status UNV Heparin Sodium (Porcine) (Heparin Sodium) 6,600 unit 1X ONCE IV Last administered on 11/06/18 17:20; Start 11/06/18 at 16:30; Stop 11/07/18 at 09:48 ; Status DC Heparin Sodium/ Dextrose 500 ml @ 0 mls/hr CONT PRN IV SEE I/O RECORD Last administered on 11/06/18at 17:32; Start 11/06/18 at 16:30; Stop 11/07/18 at 09:48 ; Status DC Heparin Sodium (Porcine) (Heparin Sodium) 2,500 unit PRN Q6HRS PRN IV FOR UFH LEVEL LESS THAN 0.2; Start 11/06/18 at 16:30; Stop 11/07/18 at 09:48; Status DC Heparin Sodium (Porcine) (Heparin Sodium) 1,200 unit PRN Q6HRS PRN IV FOR UFH LEVEL 0.2 - 0.29; Start 11/06/18 at 16:30; Stop 11/07/18 at 09:48; Status DC Morphine Sulfate (Morphine Sulfate) 2 mg Q3HRS PRN IV PAIN Last administered on 11/10/18at 08:44; Start 11/06/18 at 19:30 Iohexol (Omnipaque 350 Mg/ml) 100 ml STK-MED ONCE .ROUTE ; Start 11/07/18 at 02: 38; Stop 11/07/18 at 02:39; Status DC Rivaroxaban (Xarelto) 20 mg DAILYWSUP PO Last administered on 11/09/18at 18:16; Start 11/07/18 at 10:00 Bisacodyl (Dulcolax Tab) 5 mg 1X ONCE PO Last administered on 11/07/18at 13:40 ; Start 11/07/18 at 14:00; Stop 11/07/18 at 14:01; Status DC Polyethylene Glycol (miraLAX PACKET) 17 gm DAILY PO Last administered on at 13:40; Start 11/07/18 at 14:00 Midazolam HCl (Versed) 2 mg PRN 1X PRN IV PRIOR TO PROCEDURE; Start 11/08/18 at 09:30; Stop 11/09/18 at 09:29; Status DC Ringer's Solution 1,000 ml @ 125 mls/hr Q8H IV Last administered on 11/08/18at 09:28; Start 11/08/18 at 09:24; Stop 11/08/18 at 21:23; Status DC Lidocaine HCl (Xylocaine-Mpf 1% 2ml Vial) 2 ml 1X PRN PRN ID IV START; Start at 09:30; Stop 11/09/18 at 09:29; Status DC Barium Sulfate (Liquid E-Z Paque) 711 ml 1X ONCE PO Last administered on at 10:15; Start 11/08/18 at 10:15; Stop 11/08/18 at 10:17; Status DC Ciprofloxacin (Cipro) 500 mg BID PO Last administered on 11/10/18at 08:32; Start 11/08/18 at 15:00 Iohexol (Omnipaque 300 Mg/ml) 70 ml 1X ONCE IV Last administered on 11/08/18at 08:36; Start 11/08/18 at 17:15; Stop 11/08/18 at 17:16; Status DC Info (CONTRAST GIVEN -- Rx MONITORING) 1 each PRN DAILY PRN MC SEE COMMENTS; Start 11/08/18 at 17:15; Stop 11/10/18 at 17:14 Lactobacillus Rhamnosus (Culturelle) 1 cap BID PO Last administered on at 08:33; Start 11/09/18 at 09:00 Potassium Chloride (Klor-Con) 40 meq 1X ONCE PO Last administered on at 18:15; Start 11/09/18 at 19:00; Stop 11/09/18 at 19:01; Status DC Active Scripts Active Cozaar (Losartan Potassium) 50 Mg Tablet 100 Mg PO DAILY 30 Days Carafate (Sucralfate) 1 Gm Tablet 1 Gm PO QIDACHS [Pantoprazole] 40 MG Tablet.dr 40 Mg PO BIDAC Reported Carvedilol 3.125 Mg Tablet 3.125 Mg PO BIDWMEALS Xarelto (Rivaroxaban) 20 Mg Tablet 20 Mg PO DAILY Latuda (Lurasidone Hcl) 40 Mg Tablet 40 Mg PO DAILY Vitamin D3 (Cholecalciferol (Vitamin D3)) 50,000 Unit Capsule 50,000 Unit PO WEEKLY Folic Acid 1 Mg Tablet 1 Mg PO DAILY Magnesium Oxide 400 Mg Tablet 250 Mg PO DAILY Vitals/I & O Vital Sign - Last 24 Hours 11/09/18 11/09/18 11/09/18 11/09/18 10:15 10:17 11:08 11:11 Temp 99.4 99.4 Pulse 104 104 104 Resp 18 B/P (MAP) 121/84 121/84 143/95 (111) Pulse Ox 96 O2 Delivery Room Air Room Air 11/09/18 11/09/18 11/09/18 11/09/18 15:06 15:20 18:16 18:17 Temp 98.0 98.0 Pulse 99 99 Resp 18 B/P (MAP) 141/92 (108) 141/92 Pulse Ox 97 O2 Delivery Room Air Room Air Room Air 11/09/18 11/09/18 11/09/18 11/09/18 19:40 20:00 23:10 23:17 Temp 98.8 98.3 98.8 98.3 Pulse 93 87 Resp 17 16 B/P (MAP) 129/81 (97) 120/78 (92) Pulse Ox 94 94 96 O2 Delivery Room Air Room Air Room Air Room Air 11/10/18 11/10/18 11/10/18 11/10/18 03:26 05:17 05:47 07:00 Temp 98.8 98.7 98.8 98.7 Pulse 89 76 Resp 18 18 B/P (MAP) 150/94 (112) 130/81 (97) Pulse Ox 94 94 92 O2 Delivery Room Air Room Air Room Air 11/10/18 11/10/18 11/10/18 11/10/18 08:06 08:32 08:32 08:44 Pulse 76 76 Resp 18 B/P (MAP) 130/81 130/81 Pulse Ox 96 O2 Delivery Room Air Room Air 11/10/18 09:14 Resp 20 O2 Delivery Room Air Intake and Output 11/09/18 11/09/18 11/10/18 15:00 23:00 07:00 Intake Total 0 ml 950 ml 320 ml Output Total 550 ml Balance 0 ml 400 ml 320 ml DANITA ZENDEJAS MD Nov 10, 2018 10:13
[2018-11-10 11:00] VITALS: BP 143/89
[2018-11-10] MEDS: ALBUTEROL SULFATE 2.5 MG/3 ML NEBU. NEB PRN (11:13)
--- NOTE | 2018-11-10 11:25 | PDOC ---
PULMONARY PROGRESS NOTES Subjective on going nausea/ emesis inability to eat Vitals Vital Signs Date Time Temp Pulse Resp B/P (MAP) Pulse Ox O2 Delivery O2 Flow Rate FiO2 11/10/18 11:14 Room Air 11/10/18 09:14 20 11/10/18 08:44 96 11/10/18 08:32 76 130/81 11/10/18 07:00 98.7 98.7 General: Lethargic Lungs: Clear Cardiovascular: S1, S2 Abdomen: Soft, Other (obese) Extremities: Other (1+edema) Labs Laboratory Tests Test 11/09/18 16:15 11/10/18 06:30 Sodium Level 143 mmol/L (136-145) 142 mmol/L (136-145) Potassium Level 2.8 mmol/L (3.5-5.1) 3.0 mmol/L (3.5-5.1) Chloride Level 107 mmol/L (98-107) 108 mmol/L (98-107) Carbon Dioxide Level 22 mmol/L (21-32) 22 mmol/L (21-32) Anion Gap 14 (6-14) 12 (6-14) Blood Urea Nitrogen 2 mg/dL (7-20) 3 mg/dL (7-20) Creatinine 0.8 mg/dL (0.6-1.0) 0.7 mg/dL (0.6-1.0) Estimated GFR (Cockcroft-Gault) 93.9 109.5 BUN/Creatinine Ratio 3 (6-20) Glucose Level 169 mg/dL (70-99) 177 mg/dL (70-99) Calcium Level 7.8 mg/dL (8.5-10.1) 7.5 mg/dL (8.5-10.1) Total Bilirubin 3.9 mg/dL (0.2-1.0) Direct Bilirubin 3.4 mg/dL (0.0-0.2) Aspartate Amino Transf (AST/SGOT) 191 U/L (15-37) Alanine Aminotransferase (ALT/SGPT) 97 U/L (14-59) Alkaline Phosphatase 121 U/L (46-116) Total Protein 5.1 g/dL (6.4-8.2) Albumin 1.8 g/dL (3.4-5.0) Albumin/Globulin Ratio 0.5 (1.0-1.7) Cytomegalovirus IgG Antibody >10.00 U/mL (0.00-0.59) Cytomegalovirus IgM Antibody <30.0 AU/mL (0.0-29.9) Nelsy-Dutta Virus Capsid Ag IgG Ab >600.0 U/mL (0.0-17.9) Nelsy-Dutta Virus Capsid Ag IgM Ab <36.0 U/mL (0.0-35.9) Nelsy-Dutta Early Antigen IgG Ab 20.3 U/mL (0.0-8.9) Nelsy-Dutta Nuc Assoc Ag IgG Index 356.0 U/mL (0.0-17.9) Nelsy-Dutta Virus Interpretation Comment (.) White Blood Count 3.5 x10^3/uL (4.0-11.0) Red Blood Count 2.92 x10^6/uL (3.50-5.40) Hemoglobin 8.9 g/dL (12.0-15.5) Hematocrit 27.1 % (36.0-47.0) Mean Corpuscular Volume 93 fL (79-100) Mean Corpuscular Hemoglobin 31 pg (25-35) Mean Corpuscular Hemoglobin Concent 33 g/dL (31-37) Red Cell Distribution Width 17.2 % (11.5-14.5) Platelet Count 255 x10^3/uL (140-400) Neutrophils (%) (Auto) 55 % (31-73) Lymphocytes (%) (Auto) 36 % (24-48) Monocytes (%) (Auto) 8 % (0-9) Eosinophils (%) (Auto) 1 % (0-3) Basophils (%) (Auto) 1 % (0-3) Neutrophils # (Auto) 1.9 x10^3uL (1.8-7.7) Lymphocytes # (Auto) 1.2 x10^3/uL (1.0-4.8) Monocytes # (Auto) 0.3 x10^3/uL (0.0-1.1) Eosinophils # (Auto) 0.0 x10^3/uL (0.0-0.7) Basophils # (Auto) 0.0 x10^3/uL (0.0-0.2) Segmented Neutrophils % 59 % (35-66) Band Neutrophils % 4 % (0-9) Lymphocytes % 27 % (24-48) Monocytes % 6 % (0-10) Eosinophils % 3 % (0-5) Myelocytes % 1 % (0-0) Platelet Estimate Adequate (ADEQUATE) Polychromasia Present Poikilocytosis Present Anisocytosis Present Macrocytosis Present Target Cells Present Rogers-Welty Bodies Present Laboratory Tests Test 11/09/18 16:15 11/10/18 06:30 Sodium Level 143 mmol/L (136-145) 142 mmol/L (136-145) Potassium Level 2.8 mmol/L (3.5-5.1) 3.0 mmol/L (3.5-5.1) Chloride Level 107 mmol/L (98-107) 108 mmol/L (98-107) Carbon Dioxide Level 22 mmol/L (21-32) 22 mmol/L (21-32) Anion Gap 14 (6-14) 12 (6-14) Blood Urea Nitrogen 2 mg/dL (7-20) 3 mg/dL (7-20) Creatinine 0.8 mg/dL (0.6-1.0) 0.7 mg/dL (0.6-1.0) Estimated GFR (Cockcroft-Gault) 93.9 109.5 BUN/Creatinine Ratio 3 (6-20) Glucose Level 169 mg/dL (70-99) 177 mg/dL (70-99) Calcium Level 7.8 mg/dL (8.5-10.1) 7.5 mg/dL (8.5-10.1) Total Bilirubin 3.9 mg/dL (0.2-1.0) Direct Bilirubin 3.4 mg/dL (0.0-0.2) Aspartate Amino Transf (AST/SGOT) 191 U/L (15-37) Alanine Aminotransferase (ALT/SGPT) 97 U/L (14-59) Alkaline Phosphatase 121 U/L (46-116) Total Protein 5.1 g/dL (6.4-8.2) Albumin 1.8 g/dL (3.4-5.0) Albumin/Globulin Ratio 0.5 (1.0-1.7) Cytomegalovirus IgG Antibody >10.00 U/mL (0.00-0.59) Cytomegalovirus IgM Antibody <30.0 AU/mL (0.0-29.9) Nelsy-Dutta Virus Capsid Ag IgG Ab >600.0 U/mL (0.0-17.9) Nelsy-Dutta Virus Capsid Ag IgM Ab <36.0 U/mL (0.0-35.9) Nelsy-Dutta Early Antigen IgG Ab 20.3 U/mL (0.0-8.9) Nelsy-Dutta Nuc Assoc Ag IgG Index 356.0 U/mL (0.0-17.9) Nelsy-Dutta Virus Interpretation Comment (.) White Blood Count 3.5 x10^3/uL (4.0-11.0) Red Blood Count 2.92 x10^6/uL (3.50-5.40) Hemoglobin 8.9 g/dL (12.0-15.5) Hematocrit 27.1 % (36.0-47.0) Mean Corpuscular Volume 93 fL (79-100) Mean Corpuscular Hemoglobin 31 pg (25-35) Mean Corpuscular Hemoglobin Concent 33 g/dL (31-37) Red Cell Distribution Width 17.2 % (11.5-14.5) Platelet Count 255 x10^3/uL (140-400) Neutrophils (%) (Auto) 55 % (31-73) Lymphocytes (%) (Auto) 36 % (24-48) Monocytes (%) (Auto) 8 % (0-9) Eosinophils (%) (Auto) 1 % (0-3) Basophils (%) (Auto) 1 % (0-3) Neutrophils # (Auto) 1.9 x10^3uL (1.8-7.7) Lymphocytes # (Auto) 1.2 x10^3/uL (1.0-4.8) Monocytes # (Auto) 0.3 x10^3/uL (0.0-1.1) Eosinophils # (Auto) 0.0 x10^3/uL (0.0-0.7) Basophils # (Auto) 0.0 x10^3/uL (0.0-0.2) Segmented Neutrophils % 59 % (35-66) Band Neutrophils % 4 % (0-9) Lymphocytes % 27 % (24-48) Monocytes % 6 % (0-10) Eosinophils % 3 % (0-5) Myelocytes % 1 % (0-0) Platelet Estimate Adequate (ADEQUATE) Polychromasia Present Poikilocytosis Present Anisocytosis Present Macrocytosis Present Target Cells Present Rogers-Welty Bodies Present Medications Active Scripts Medications Dose Route/Sig Max Daily Dose Days Date Category Cozaar (Losartan Potassium) 50 Mg Tablet 100 Mg PO DAILY 30 07/05/18 Rx Carafate (Sucralfate) 1 Gm Tablet 1 Gm PO QIDACHS 04/21/18 Rx [Pantoprazole] 40 MG Tablet.dr 40 Mg PO BIDAC 04/21/18 Rx Carvedilol 3.125 Mg Tablet 3.125 Mg PO BIDWMEALS 04/18/18 Reported Xarelto (Rivaroxaban) 20 Mg Tablet 20 Mg PO DAILY 04/18/18 Reported Latuda (Lurasidone Hcl) 40 Mg Tablet 40 Mg PO DAILY 04/18/18 Reported Vitamin D3 (Cholecalciferol (Vitamin D3)) 50,000 Unit Capsule 50,000 Unit PO WEEKLY 04/18/18 Reported Folic Acid 1 Mg Tablet 1 Mg PO DAILY 04/18/18 Reported Magnesium Oxide 400 Mg Tablet 250 Mg PO DAILY 04/18/18 Reported Impression . 1. The patient with history of pulmonary embolism and deep venous thrombosis, now comes in with chest pain, which is probably related to her anastomotic ulcer. The CT angiogram and V/Q scan have been reviewed and do not show any new blood clot. The CTA shows chronic linear clot and the V/Q scan shows mismatched defect in the left lower lobe. The venous Doppler shows nonocclusive thrombus. 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 We need to closely monitor for any anemia or bleeding while on anticoagulation. 2. No history of hypercoagulable state. 3. Morbid obesity with decreased ambulation. 4. Loss of appetite secondary to ulcer, resulting in decreased oral intake. 5. s/p EGD/ small bowel series/ healed anastomotic ulcer Plan . 1. Continue Xarelto. 2. I would recommend to have the patient follow up with [facility] where she has been regularly followed up and make future recommendation regarding continuation of Xarelto. 3. GI rec regarding ongoing nausea 4. Increase ambulation. 5. Weight loss is strongly emphasized. 6. Discussed with RN. GERMNÁ COLEMAN MD Nov 10, 2018 11:25
--- NOTE | 2018-11-10 11:59 | PDOC ---
Subjective: Subjective: "Not good, I can't eat." Then says she drank some broth without issue. Hasn't stooled. Objective: Objective: D/w RN - she has seen pt wipe some saliva and chew up pills from her mouth but no retching or vomiting. Will sleep soundly for 2-3 hours, then when staff wakes her asks for pain meds for chest pain. Didn't want breakfast this morning. Refused Miralax. Vital Signs: Vital Signs Date Time Temp Pulse Resp B/P (MAP) Pulse Ox O2 Delivery O2 Flow Rate FiO2 11/10/18 11:14 Room Air 11/10/18 11:00 98.2 87 18 143/89 (107) 92 98.2 Labs: Laboratory Tests Test 11/09/18 16:15 11/10/18 06:30 Sodium Level 143 mmol/L 142 mmol/L Potassium Level 2.8 mmol/L 3.0 mmol/L Chloride Level 107 mmol/L 108 mmol/L Carbon Dioxide Level 22 mmol/L 22 mmol/L Anion Gap 14 12 Blood Urea Nitrogen 2 mg/dL 3 mg/dL Creatinine 0.8 mg/dL 0.7 mg/dL Estimated GFR (Cockcroft-Gault) 93.9 109.5 BUN/Creatinine Ratio 3 Glucose Level 169 mg/dL 177 mg/dL Calcium Level 7.8 mg/dL 7.5 mg/dL Total Bilirubin 3.9 mg/dL Direct Bilirubin 3.4 mg/dL Aspartate Amino Transf (AST/SGOT) 191 U/L Alanine Aminotransferase (ALT/SGPT) 97 U/L Alkaline Phosphatase 121 U/L Total Protein 5.1 g/dL Albumin 1.8 g/dL Albumin/Globulin Ratio 0.5 Cytomegalovirus IgG Antibody >10.00 U/mL Cytomegalovirus IgM Antibody <30.0 AU/mL Nelsy-Dutta Virus Capsid Ag IgG Ab >600.0 U/mL Nelsy-Dutta Virus Capsid Ag IgM Ab <36.0 U/mL Nelsy-Dutta Early Antigen IgG Ab 20.3 U/mL Nelsy-Dutta Nuc Assoc Ag IgG Index 356.0 U/mL Nelsy-Dutta Virus Interpretation Comment White Blood Count 3.5 x10^3/uL Red Blood Count 2.92 x10^6/uL Hemoglobin 8.9 g/dL Hematocrit 27.1 % Mean Corpuscular Volume 93 fL Mean Corpuscular Hemoglobin 31 pg Mean Corpuscular Hemoglobin Concent 33 g/dL Red Cell Distribution Width 17.2 % Platelet Count 255 x10^3/uL Neutrophils (%) (Auto) 55 % Lymphocytes (%) (Auto) 36 % Monocytes (%) (Auto) 8 % Eosinophils (%) (Auto) 1 % Basophils (%) (Auto) 1 % Neutrophils # (Auto) 1.9 x10^3uL Lymphocytes # (Auto) 1.2 x10^3/uL Monocytes # (Auto) 0.3 x10^3/uL Eosinophils # (Auto) 0.0 x10^3/uL Basophils # (Auto) 0.0 x10^3/uL Segmented Neutrophils % 59 % Band Neutrophils % 4 % Lymphocytes % 27 % Monocytes % 6 % Eosinophils % 3 % Myelocytes % 1 % Platelet Estimate Adequate Polychromasia Present Poikilocytosis Present Anisocytosis Present Macrocytosis Present Target Cells Present Rogers-Arona Bodies Present URINE CULTURE Final Final report URINE CULTURE RES 1 Final Escherichia coli PE: GEN: NAD LUNGS: breathing treatment HEART: RRR ABD: S/ND/NT NEURO/PSYCH: A & O 3 A/P: Nausea/anorexia GERD, s/p [id number] Elevated LFTs, hepatic steatosis, s/p spring Anemia, hypokalemia, UTI, chronic chest pain -- Need to review w/ Dr. Watt. SHAMIR DAMON Nov 10, 2018 11:59
[2018-11-10 12:27] LABS: ALBUMIN 1.6 g/dL (3.4-5.0); DIRECT BILIRUBIN 2.7 mg/dL (0.0-0.2); TOTAL BILIRUBIN 3.2 mg/dL (0.2-1.0); TOTAL PROTEIN 4.8 g/dL (6.4-8.2)
[2018-11-10 15:00] VITALS: BP 142/94
[2018-11-10] MEDS ORDERED: POTASSIUM CHLORIDE 20 MEQ TABLET.ER. PO ONE (15:00)
[2018-11-10] MEDS: MEROPENEM 500 MG in IV NORMAL SALINE 50ML 50 ML IV SCH ×2 (15:02→21:14)
[2018-11-10 15:18] LABS: SMOOTH MUSCLE AB 8 Units (0-19)
[2018-11-10] MEDS: RIVAROXABAN 10 MG TABLET. PO SCH (16:17)
[2018-11-10 18:10] LABS: ANA INTERP Negative (.)
[2018-11-10 19:45] VITALS: BP 148/99
[2018-11-10 23:14] VITALS: BP 106/66
[2018-11-11] MEDS: MORPHINE SULFATE 2 MG/ML VIAL. IV PRN ×6 (00:14→18:08)
[2018-11-11 03:39] VITALS: BP 133/92
[2018-11-11] MEDS: MEROPENEM 500 MG in IV NORMAL SALINE 50ML 50 ML IV SCH ×3 (06:04→21:12)
[2018-11-11 07:00] VITALS: BP 140/86
[2018-11-11] MEDS: ONDANSETRON PF 4 MG/2 ML VIAL. IV PRN ×3 (08:08→18:08)
[2018-11-11] MEDS: PANTOPRAZOLE 40 MG TABLET.DR. PO SCH ×2 (08:09→17:02)
[2018-11-11] MEDS: CARVEDILOL 3.125 MG TABLET. PO SCH ×2 (08:09→17:02)
[2018-11-11] MEDS: SUCRALFATE 1 GM TABLET. PO SCH ×4 (08:09→21:09)
[2018-11-11] MEDS: POLYETHYLENE GLYCOL 3350 17 GM PACKET. PO SCH (09:17)
[2018-11-11] MEDS: LACTOBACILLUS RHAMNOSUS GG 1 CAPSULE. PO SCH ×2 (09:17→21:09)
[2018-11-11] MEDS: FOLIC ACID 1 MG TABLET. PO SCH (09:17)
[2018-11-11] MEDS: LURASIDONE 40 MG TABLET. PO SCH (09:18)
[2018-11-11] MEDS: MAGNESIUM OXIDE 400 MG TABLET PO SCH (09:18)
[2018-11-11] MEDS: LOSARTAN POTASSIUM 50 MG TABLET. PO SCH (09:18)
--- NOTE | 2018-11-11 10:07 | PDOC ---
PROGRESS NOTES Chief Complaint Chief Complaint Transaminitis most likely secondary to steatohepatitis Chest pain acute coronary syndrome ruled out History of pulmonary embolism last year Old thrombus noted, back on anticoagulation linear filling defects in the bilateral pulmonary arteries which could be secondary to old recanalized embolus. 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 Non adherence to PPI and carafate for ulcer treatment Inability to tolerate PO well persists History of IVC filter placement Obesity with BMI of 34 Mild bilirubinemia Hypokalemia and hyponatremia as a consequence of her poor oral intake, on replacement intractable nausea persists hypertension, suboptimal control History of Present Illness History of Present Illness Patient seen and examined at bedside. She continues to complain of nausea, vomiting, epigastric pain. EGD results normal. White count, Hgb low. Patient on Xarelto, hx of PE with IVC filter (at [facility]). GI and Pulm following. Vitals Vitals Vital Signs Date Time Temp Pulse Resp B/P (MAP) Pulse Ox O2 Delivery O2 Flow Rate FiO2 11/11/18 09:18 92 140/86 11/11/18 08:38 18 96 Room Air 2.0 11/11/18 07:00 98.9 98.9 Physical Exam General: Alert, Oriented X3, Cooperative, mild distress (nausea and vomiting) Heart: Regular rate (SR), Normal S1, Normal S2, Other (2/6 systolic murmur to LLS border) Lungs: Clear Abdomen: Normal bowel sounds, Soft, No tenderness Extremities: No clubbing, No cyanosis, No edema Skin: No rashes, No breakdown Review of Systems Review of Systems Reports nausea/vomiting Reports epigastric pain Assessment and Plan Assessmemt and Plan Problems Medical Problems: (1) Chest pain Status: Acute (2) Elevated bilirubin Status: Acute Assessment: Transaminitis most likely secondary to steatohepatitis Chest pain acute coronary syndrome ruled out History of pulmonary embolism last year Old thrombus noted, back on anticoagulation linear filling defects in the bilateral pulmonary arteries which could be secondary to old recanalized embolus. 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 Non adherence to PPI and carafate for ulcer treatment Inability to tolerate PO well persists History of IVC filter placement Obesity with BMI of 34 Mild bilirubinemia Hypokalemia and hyponatremia as a consequence of her poor oral intake, on replacement intractable nausea persists hypertension, suboptimal control Plan: Appreciate GI input, continue to follow CMP, unsure of source of transaminitis Continue to monitor vitals Started on Xarelto Review labs in the am PT/OT EGD results reviewed Comment Review of Relevant I have reviewed the following items leo (where applicable) has been applied. Labs Laboratory Tests Test 11/09/18 16:15 11/10/18 06:30 Sodium Level 143 mmol/L (136-145) 142 mmol/L (136-145) Potassium Level 2.8 mmol/L (3.5-5.1) 3.0 mmol/L (3.5-5.1) Chloride Level 107 mmol/L (98-107) 108 mmol/L (98-107) Carbon Dioxide Level 22 mmol/L (21-32) 22 mmol/L (21-32) Anion Gap 14 (6-14) 12 (6-14) Blood Urea Nitrogen 2 mg/dL (7-20) 3 mg/dL (7-20) Creatinine 0.8 mg/dL (0.6-1.0) 0.7 mg/dL (0.6-1.0) Estimated GFR (Cockcroft-Gault) 93.9 109.5 BUN/Creatinine Ratio 3 (6-20) Glucose Level 169 mg/dL (70-99) 177 mg/dL (70-99) Calcium Level 7.8 mg/dL (8.5-10.1) 7.5 mg/dL (8.5-10.1) Total Bilirubin 3.9 mg/dL (0.2-1.0) 3.2 mg/dL (0.2-1.0) Direct Bilirubin 3.4 mg/dL (0.0-0.2) 2.7 mg/dL (0.0-0.2) Aspartate Amino Transf (AST/SGOT) 191 U/L (15-37) 177 U/L (15-37) Alanine Aminotransferase (ALT/SGPT) 97 U/L (14-59) 87 U/L (14-59) Alkaline Phosphatase 121 U/L (46-116) 106 U/L (46-116) Total Protein 5.1 g/dL (6.4-8.2) 4.8 g/dL (6.4-8.2) Albumin 1.8 g/dL (3.4-5.0) 1.6 g/dL (3.4-5.0) Albumin/Globulin Ratio 0.5 (1.0-1.7) Cytomegalovirus IgG Antibody >10.00 U/mL (0.00-0.59) Cytomegalovirus IgM Antibody <30.0 AU/mL (0.0-29.9) Nelsy-Dutta Virus Capsid Ag IgG Ab >600.0 U/mL (0.0-17.9) Nelsy-Dutta Virus Capsid Ag IgM Ab <36.0 U/mL (0.0-35.9) Nelsy-Dutta Early Antigen IgG Ab 20.3 U/mL (0.0-8.9) Nelsy-Dutta Nuc Assoc Ag IgG Index 356.0 U/mL (0.0-17.9) Nelsy-Dutta Virus Interpretation Comment (.) White Blood Count 3.5 x10^3/uL (4.0-11.0) Red Blood Count 2.92 x10^6/uL (3.50-5.40) Hemoglobin 8.9 g/dL (12.0-15.5) Hematocrit 27.1 % (36.0-47.0) Mean Corpuscular Volume 93 fL (79-100) Mean Corpuscular Hemoglobin 31 pg (25-35) Mean Corpuscular Hemoglobin Concent 33 g/dL (31-37) Red Cell Distribution Width 17.2 % (11.5-14.5) Platelet Count 255 x10^3/uL (140-400) Neutrophils (%) (Auto) 55 % (31-73) Lymphocytes (%) (Auto) 36 % (24-48) Monocytes (%) (Auto) 8 % (0-9) Eosinophils (%) (Auto) 1 % (0-3) Basophils (%) (Auto) 1 % (0-3) Neutrophils # (Auto) 1.9 x10^3uL (1.8-7.7) Lymphocytes # (Auto) 1.2 x10^3/uL (1.0-4.8) Monocytes # (Auto) 0.3 x10^3/uL (0.0-1.1) Eosinophils # (Auto) 0.0 x10^3/uL (0.0-0.7) Basophils # (Auto) 0.0 x10^3/uL (0.0-0.2) Segmented Neutrophils % 59 % (35-66) Band Neutrophils % 4 % (0-9) Lymphocytes % 27 % (24-48) Monocytes % 6 % (0-10) Eosinophils % 3 % (0-5) Myelocytes % 1 % (0-0) Platelet Estimate Adequate (ADEQUATE) Polychromasia Present Poikilocytosis Present Anisocytosis Present Macrocytosis Present Target Cells Present Rogers-Millstone Bodies Present Microbiology 11/06/18 Urine Culture - Final, Complete 11/06/18 Urine Culture Result 1 ([facility]) - Final, Complete 11/06/18 Antimicrobic Susceptibility - Final, Complete Medications Current Medications Aspirin (Children'S Aspirin) 324 mg 1X ONCE PO Last administered on 11/06/18at 10:44; Start 11/06/18 at 09:15; Stop 11/06/18 at 09:18; Status DC Morphine Sulfate (Morphine Sulfate) 4 mg PRN Q15MIN PRN IV/SQ PAIN GREATER THAN 3/10 Last administered on 11/06/18at 13:14; Start 11/06/18 at 09:15; Stop at 09:14; Status DC Ondansetron HCl (Zofran) 4 mg 1X ONCE IV Last administered on 11/06/18at 10:44 ; Start 11/06/18 at 09:15; Stop 11/06/18 at 09:18; Status DC Iohexol (Omnipaque 350 Mg/ml) 100 ml 1X ONCE IV Last administered on at 22:00; Start 11/06/18 at 11:30; Stop 11/06/18 at 11:33; Status DC Info (CONTRAST GIVEN -- Rx MONITORING) 1 each PRN DAILY PRN MC SEE COMMENTS; Start 11/06/18 at 11:45; Stop 11/08/18 at 11:44; Status DC Levofloxacin/ Dextrose 100 ml @ 100 mls/hr 1X ONCE IV Last administered on at 15:30; Start 11/06/18 at 13:15; Stop 11/06/18 at 14:14; Status DC Ondansetron HCl (Zofran) 4 mg PRN Q4HRS PRN IV NAUSEA/VOMITING Last administered on 11/11/18at 08:08; Start 11/06/18 at 13:30 Zolpidem Tartrate (Ambien) 5 mg PRN QHS PRN PO INSOMNIA; Start 11/06/18 at 13: 30 Acetaminophen (Tylenol) 650 mg PRN Q4HRS PRN PO TEMP OVER 100.4F OR MILD PAIN Last administered on 11/06/18at 17:10; Start 11/06/18 at 13:30 Al Hydroxide/Mg Hydroxide (Mylanta Plus Xs) 30 ml PRN DAILY PRN PO HEARTBURN / GAS; Start 11/06/18 at 13:30 Clonidine HCl (Catapres) 0.1 mg PRN Q6HRS PRN PO SBP>160 OR DBP>90; Start 11/06 at 13:30 Diphenhydramine HCl (Benadryl) 25 mg PRN Q4HRS PRN IVP ITCHING; Start 11/06/18 at 13:30 Docusate Sodium (Colace) 100 mg PRN BID PRN PO CONSTIPATION; Start 11/06/18 at 13:30 Albuterol Sulfate (Ventolin Neb Soln) 2.5 mg PRN Q4HRS PRN NEB SHORTNESS OF BREATH Last administered on 11/10/18at 11:13; Start 11/06/18 at 13:30 Guaifenesin (Robitussin) 200 mg PRN Q4HRS PRN PO COUGH; Start 11/06/18 at 13:30 Lorazepam (Ativan) 0.5 mg PRN Q4HRS PRN PO ANXIETY / AGITATION; Start 11/06/18 at 13:30 Carvedilol (Coreg) 3.125 mg BIDWMEALS PO Last administered on 11/11/18 08:09; Start 11/06/18 at 17:00 Folic Acid (Folic Acid) 1 mg DAILY PO Last administered on 11/11/18 09:17; Start 11/06/18 at 15:00 Losartan Potassium (Cozaar) 100 mg DAILY PO Last administered on 11/11/18 09: 18; Start 11/06/18 at 15:00 Lurasidone HCl (Latuda) 40 mg DAILY PO Last administered on 11/11/18 09:18; Start 11/06/18 at 15:00 Ergocalciferol (Vitamin D2) 50,000 unit WEEKLY PO ; Start 11/06/18 at 15:00 Magnesium Oxide (Magnesium Oxide) 200 mg DAILY PO Last administered on at 09:18; Start 11/06/18 at 15:00 Rivaroxaban (Xarelto) 20 mg DAILYWSUP PO ; Start 11/06/18 at 17:00; Stop at 17:00; Status DC Sucralfate (Carafate) 1 gm QIDACHS PO Last administered on 11/11/18 08:09; Start 11/06/18 at 16:30 Pantoprazole Sodium (Protonix) 40 mg BIDAC PO Last administered on 11/11/18 08 :09; Start 11/06/18 at 16:30 Info (Anti-Coagulation Monitoring By Pharmacy) 1 each PRN DAILY PRN MC SEE COMMENTS Last administered on 11/07/18at 10:59; Start 11/06/18 at 14:15 Potassium Chloride (KCl Oral Soln) 20 meq 1X ONCE PEG Last administered on at 17:09; Start 11/06/18 at 15:00; Stop 11/06/18 at 15:01; Status DC Heparin Sodium/ Dextrose 500 ml @ 0 mls/hr CONT PRN IV SEE I/O RECORD; Start at 16:30; Status UNV Heparin Sodium (Porcine) (Heparin Sodium) 6,600 unit 1X ONCE IV Last administered on 11/06/18at 17:20; Start 11/06/18 at 16:30; Stop 11/07/18 at 09:48 ; Status DC Heparin Sodium/ Dextrose 500 ml @ 0 mls/hr CONT PRN IV SEE I/O RECORD Last administered on 11/06/18at 17:32; Start 11/06/18 at 16:30; Stop 11/07/18 at 09:48 ; Status DC Heparin Sodium (Porcine) (Heparin Sodium) 2,500 unit PRN Q6HRS PRN IV FOR UFH LEVEL LESS THAN 0.2; Start 11/06/18 at 16:30; Stop 11/07/18 at 09:48; Status DC Heparin Sodium (Porcine) (Heparin Sodium) 1,200 unit PRN Q6HRS PRN IV FOR UFH LEVEL 0.2 - 0.29; Start 11/06/18 at 16:30; Stop 11/07/18 at 09:48; Status DC Morphine Sulfate (Morphine Sulfate) 2 mg Q3HRS PRN IV PAIN Last administered on 11/11/18 08:08; Start 11/06/18 at 19:30 Iohexol (Omnipaque 350 Mg/ml) 100 ml STK-MED ONCE .ROUTE ; Start 11/07/18 at 02: 38; Stop 11/07/18 at 02:39; Status DC Rivaroxaban (Xarelto) 20 mg DAILYWSUP PO Last administered on 11/10/18 16:17; Start 11/07/18 at 10:00 Bisacodyl (Dulcolax Tab) 5 mg 1X ONCE PO Last administered on 11/07/18 13:40 ; Start 11/07/18 at 14:00; Stop 11/07/18 at 14:01; Status DC Polyethylene Glycol (miraLAX PACKET) 17 gm DAILY PO Last administered on 09:17; Start 11/07/18 at 14:00 Midazolam HCl (Versed) 2 mg PRN 1X PRN IV PRIOR TO PROCEDURE; Start 11/08/18 at 09:30; Stop 11/09/18 at 09:29; Status DC Ringer's Solution 1,000 ml @ 125 mls/hr Q8H IV Last administered on 11/08/18at 09:28; Start 11/08/18 at 09:24; Stop 11/08/18 at 21:23; Status DC Lidocaine HCl (Xylocaine-Mpf 1% 2ml Vial) 2 ml 1X PRN PRN ID IV START; Start at 09:30; Stop 11/09/18 at 09:29; Status DC Barium Sulfate (Liquid E-Z Paque) 711 ml 1X ONCE PO Last administered on at 10:15; Start 11/08/18 at 10:15; Stop 11/08/18 at 10:17; Status DC Ciprofloxacin (Cipro) 500 mg BID PO Last administered on 11/10/18at 08:32; Start 11/08/18 at 15:00; Stop 11/10/18 at 14:17; Status DC Iohexol (Omnipaque 300 Mg/ml) 70 ml 1X ONCE IV Last administered on 11/08/18at 08:36; Start 11/08/18 at 17:15; Stop 11/08/18 at 17:16; Status DC Info (CONTRAST GIVEN -- Rx MONITORING) 1 each PRN DAILY PRN MC SEE COMMENTS; Start 11/08/18 at 17:15; Stop 11/10/18 at 17:14; Status DC Lactobacillus Rhamnosus (Culturelle) 1 cap BID PO Last administered on at 09:17; Start 11/09/18 at 09:00 Potassium Chloride (Klor-Con) 40 meq 1X ONCE PO Last administered on at 18:15; Start 11/09/18 at 19:00; Stop 11/09/18 at 19:01; Status DC Potassium Chloride (Klor-Con) 40 meq 1X ONCE PO Last administered on at 15:02; Start 11/10/18 at 15:00; Stop 11/10/18 at 15:01; Status DC Meropenem 500 mg/ Sodium Chloride 50 ml @ 100 mls/hr Q8HRS IV Last administered on 11/11/18at 06:04; Start 11/10/18 at 15:00 Active Scripts Active Cozaar (Losartan Potassium) 50 Mg Tablet 100 Mg PO DAILY 30 Days Carafate (Sucralfate) 1 Gm Tablet 1 Gm PO QIDACHS [Pantoprazole] 40 MG Tablet.dr 40 Mg PO BIDAC Reported Carvedilol 3.125 Mg Tablet 3.125 Mg PO BIDWMEALS Xarelto (Rivaroxaban) 20 Mg Tablet 20 Mg PO DAILY Latuda (Lurasidone Hcl) 40 Mg Tablet 40 Mg PO DAILY Vitamin D3 (Cholecalciferol (Vitamin D3)) 50,000 Unit Capsule 50,000 Unit PO WEEKLY Folic Acid 1 Mg Tablet 1 Mg PO DAILY Magnesium Oxide 400 Mg Tablet 250 Mg PO DAILY Vitals/I & O Vital Sign - Last 24 Hours 11/10/18 11/10/18 11/10/18 11/10/18 11:00 11:14 12:57 15:00 Temp 98.2 99.8 98.2 99.8 Pulse 87 93 Resp 18 18 B/P (MAP) 143/89 (107) 142/94 (110) Pulse Ox 92 97 94 O2 Delivery Room Air Room Air Room Air Room Air 11/10/18 11/10/18 11/10/18 11/10/18 16:17 16:18 19:42 19:45 Temp 100.4 100.4 Pulse 97 97 Resp 20 18 B/P (MAP) 142/94 148/99 (115) Pulse Ox 98 97 92 O2 Delivery Nasal Cannula Room Air Room Air 11/10/18 11/10/18 11/11/18 11/11/18 20:00 23:14 00:14 03:39 Temp 98.5 99.8 98.5 99.8 Pulse 84 87 Resp 18 18 B/P (MAP) 106/66 (79) 133/92 (106) Pulse Ox 94 96 O2 Delivery Room Air Room Air Room Air Room Air 11/11/18 11/11/18 11/11/18 11/11/18 03:47 07:00 08:08 08:09 Temp 98.9 98.9 Pulse 92 92 Resp 16 18 B/P (MAP) 140/86 (104) 140/86 Pulse Ox 96 95 96 O2 Delivery Room Air Room Air Room Air 11/11/18 11/11/18 08:38 09:18 Pulse 92 Resp 18 B/P (MAP) 140/86 Pulse Ox 96 O2 Delivery Room Air O2 Flow Rate 2.0 Intake and Output 11/10/18 11/10/18 11/11/18 15:00 23:00 07:00 Intake Total 150 ml 480 ml Output Total 400 ml 100 ml Balance -250 ml 380 ml Nutrition Consultation Dietary Evaluation: Recommendations by RD: Protein supplementation Comments: REC cardiac/ADA diet per pmhx, will adjust diet order REC Glucerna TID for protein intake while pt's appetite remains poor, dietary notified Expected Outcomes/Goals: PO intake to meet >75% est needs Interpretation of weight loss: >5% in 1 month Malnutrition Findings: Food and Nutrition Intake (Mod: <75% est energy req 7days Weight Status: Obese AUGUSTO DEVRIES III DO Nov 11, 2018 10:07
--- NOTE | 2018-11-11 10:22 | PDOC ---
PULMONARY PROGRESS NOTES Subjective on going nausea inability to eat well does not ambulate Vitals Vital Signs Date Time Temp Pulse Resp B/P (MAP) Pulse Ox O2 Delivery O2 Flow Rate FiO2 11/11/18 09:18 92 140/86 11/11/18 08:38 18 96 Room Air 2.0 11/11/18 07:00 98.9 98.9 General: Lethargic Lungs: Clear Cardiovascular: S1, S2 Abdomen: Soft, Other (obese) Extremities: Other (1+edema) Labs Laboratory Tests Test 11/09/18 16:15 11/10/18 06:30 Sodium Level 143 mmol/L (136-145) 142 mmol/L (136-145) Potassium Level 2.8 mmol/L (3.5-5.1) 3.0 mmol/L (3.5-5.1) Chloride Level 107 mmol/L (98-107) 108 mmol/L (98-107) Carbon Dioxide Level 22 mmol/L (21-32) 22 mmol/L (21-32) Anion Gap 14 (6-14) 12 (6-14) Blood Urea Nitrogen 2 mg/dL (7-20) 3 mg/dL (7-20) Creatinine 0.8 mg/dL (0.6-1.0) 0.7 mg/dL (0.6-1.0) Estimated GFR (Cockcroft-Gault) 93.9 109.5 BUN/Creatinine Ratio 3 (6-20) Glucose Level 169 mg/dL (70-99) 177 mg/dL (70-99) Calcium Level 7.8 mg/dL (8.5-10.1) 7.5 mg/dL (8.5-10.1) Total Bilirubin 3.9 mg/dL (0.2-1.0) 3.2 mg/dL (0.2-1.0) Direct Bilirubin 3.4 mg/dL (0.0-0.2) 2.7 mg/dL (0.0-0.2) Aspartate Amino Transf (AST/SGOT) 191 U/L (15-37) 177 U/L (15-37) Alanine Aminotransferase (ALT/SGPT) 97 U/L (14-59) 87 U/L (14-59) Alkaline Phosphatase 121 U/L (46-116) 106 U/L (46-116) Total Protein 5.1 g/dL (6.4-8.2) 4.8 g/dL (6.4-8.2) Albumin 1.8 g/dL (3.4-5.0) 1.6 g/dL (3.4-5.0) Albumin/Globulin Ratio 0.5 (1.0-1.7) Cytomegalovirus IgG Antibody >10.00 U/mL (0.00-0.59) Cytomegalovirus IgM Antibody <30.0 AU/mL (0.0-29.9) Nelsy-Dutta Virus Capsid Ag IgG Ab >600.0 U/mL (0.0-17.9) Nelsy-Dutta Virus Capsid Ag IgM Ab <36.0 U/mL (0.0-35.9) Nelsy-Dutta Early Antigen IgG Ab 20.3 U/mL (0.0-8.9) Nelsy-Dutta Nuc Assoc Ag IgG Index 356.0 U/mL (0.0-17.9) Nelsy-Dutta Virus Interpretation Comment (.) White Blood Count 3.5 x10^3/uL (4.0-11.0) Red Blood Count 2.92 x10^6/uL (3.50-5.40) Hemoglobin 8.9 g/dL (12.0-15.5) Hematocrit 27.1 % (36.0-47.0) Mean Corpuscular Volume 93 fL (79-100) Mean Corpuscular Hemoglobin 31 pg (25-35) Mean Corpuscular Hemoglobin Concent 33 g/dL (31-37) Red Cell Distribution Width 17.2 % (11.5-14.5) Platelet Count 255 x10^3/uL (140-400) Neutrophils (%) (Auto) 55 % (31-73) Lymphocytes (%) (Auto) 36 % (24-48) Monocytes (%) (Auto) 8 % (0-9) Eosinophils (%) (Auto) 1 % (0-3) Basophils (%) (Auto) 1 % (0-3) Neutrophils # (Auto) 1.9 x10^3uL (1.8-7.7) Lymphocytes # (Auto) 1.2 x10^3/uL (1.0-4.8) Monocytes # (Auto) 0.3 x10^3/uL (0.0-1.1) Eosinophils # (Auto) 0.0 x10^3/uL (0.0-0.7) Basophils # (Auto) 0.0 x10^3/uL (0.0-0.2) Segmented Neutrophils % 59 % (35-66) Band Neutrophils % 4 % (0-9) Lymphocytes % 27 % (24-48) Monocytes % 6 % (0-10) Eosinophils % 3 % (0-5) Myelocytes % 1 % (0-0) Platelet Estimate Adequate (ADEQUATE) Polychromasia Present Poikilocytosis Present Anisocytosis Present Macrocytosis Present Target Cells Present Rogers-Festus Bodies Present Medications Active Scripts Medications Dose Route/Sig Max Daily Dose Days Date Category Cozaar (Losartan Potassium) 50 Mg Tablet 100 Mg PO DAILY 30 07/05/18 Rx Carafate (Sucralfate) 1 Gm Tablet 1 Gm PO QIDACHS 04/21/18 Rx [Pantoprazole] 40 MG Tablet.dr 40 Mg PO BIDAC 04/21/18 Rx Carvedilol 3.125 Mg Tablet 3.125 Mg PO BIDWMEALS 04/18/18 Reported Xarelto (Rivaroxaban) 20 Mg Tablet 20 Mg PO DAILY 04/18/18 Reported Latuda (Lurasidone Hcl) 40 Mg Tablet 40 Mg PO DAILY 04/18/18 Reported Vitamin D3 (Cholecalciferol (Vitamin D3)) 50,000 Unit Capsule 50,000 Unit PO WEEKLY 04/18/18 Reported Folic Acid 1 Mg Tablet 1 Mg PO DAILY 04/18/18 Reported Magnesium Oxide 400 Mg Tablet 250 Mg PO DAILY 04/18/18 Reported Impression . 1. The patient with history of pulmonary embolism and deep venous thrombosis, now comes in with chest pain, which is probably related to her anastomotic ulcer. The CT angiogram and V/Q scan have been reviewed and do not show any new blood clot. The CTA shows chronic linear clot and the V/Q scan shows mismatched defect in the left lower lobe. The venous Doppler shows nonocclusive thrombus. 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 We need to closely monitor for any anemia or bleeding while on anticoagulation. 2. No history of hypercoagulable state. 3. Morbid obesity with decreased ambulation. 4. Loss of appetite secondary to ulcer, resulting in decreased oral intake. 5. s/p EGD/ small bowel series/ healed anastomotic ulcer Plan . 1. Continue Xarelto. 2. I would recommend to have the patient follow up with [facility] where she has been regularly followed up and make future recommendation regarding continuation of Xarelto. 3. GI rec regarding ongoing nausea 4. Increase ambulation. 5. Weight loss is strongly emphasized. 6. Discussed with RN. GERMÁN COLEMAN MD Nov 11, 2018 10:22
[2018-11-11] MEDS: ALBUTEROL SULFATE 2.5 MG/3 ML NEBU. NEB PRN (10:24)
[2018-11-11 11:00] VITALS: BP 131/89
[2018-11-11] MEDS: guaiFENesin ORAL 200 MG/10 ML LIQUID. PO PRN ×2 (12:59→18:06)
[2018-11-11 15:00] VITALS: BP_SYST 131; BP_SYST 159; BP_DIAS 89; BP_DIAS 98
[2018-11-11] MEDS: RIVAROXABAN 10 MG TABLET. PO SCH (17:02)
[2018-11-11 19:06] VITALS: BP 150/105
[2018-11-11] MEDS: DOCUSATE SODIUM 100 MG CAPSULE. PO PRN (21:09)
[2018-11-11 22:32] VITALS: BP 102/71
[2018-11-12] MEDS: ONDANSETRON PF 4 MG/2 ML VIAL. IV PRN ×4 (01:39→19:42)
[2018-11-12] MEDS: MORPHINE SULFATE 2 MG/ML VIAL. IV PRN ×4 (01:40→19:43)
[2018-11-12 03:35] VITALS: BP 128/91
[2018-11-12] MEDS: MEROPENEM 500 MG in IV NORMAL SALINE 50ML 50 ML IV SCH ×3 (05:55→21:36)
[2018-11-12 06:24] LABS: BASO % 1 % (0-3); EOS % 1 % (0-3); HEMATOCRIT 27.5 % (36.0-47.0); HEMOGLOBIN 9.1 g/dL (12.0-15.5); LYMPH # 1.8 x10^3/uL (1.0-4.8); LYMPH % 47 % (24-48); MEAN CORPUSCULAR HEMOGLOBIN 31 pg (25-35); MEAN CORPUSCULAR HGB CONC 33 g/dL (31-37); MEAN CORPUSCULAR VOLUME 92 fL (79-100); MONO # 0.3 x10^3/uL (0.0-1.1); MONO % 9 % (0-9); NEUT # 1.6 x10^3uL (1.8-7.7); NEUT % 43 % (31-73); PLATELET COUNT 235 x10^3/uL (140-400); RED BLOOD COUNT 2.98 x10^6/uL (3.50-5.40); RED CELL DISTRIBUTION WIDTH 17.3 % (11.5-14.5); WHITE BLOOD COUNT 3.8 x10^3/uL (4.0-11.0)
[2018-11-12 06:37] LABS: ALBUMIN 1.5 g/dL (3.4-5.0); ALBUMIN/GLOBULIN RATIO 0.4 (1.0-1.7); CALCIUM 7.8 mg/dL (8.5-10.1); CREATININE 0.4 mg/dL (0.6-1.0); GFR 208.9; POTASSIUM 3.3 mmol/L (3.5-5.1); TOTAL BILIRUBIN 2.4 mg/dL (0.2-1.0); TOTAL PROTEIN 4.9 g/dL (6.4-8.2)
[2018-11-12 07:00] VITALS: BP 152/115
[2018-11-12] MEDS: SUCRALFATE 1 GM TABLET. PO SCH ×4 (08:00→21:36)
[2018-11-12] MEDS: PANTOPRAZOLE 40 MG TABLET.DR. PO SCH ×2 (08:00→16:21)
[2018-11-12] MEDS: ALBUTEROL SULFATE 2.5 MG/3 ML NEBU. NEB PRN (08:08)
[2018-11-12] MEDS: FOLIC ACID 1 MG TABLET. PO SCH (09:10)
[2018-11-12] MEDS: DOCUSATE SODIUM 100 MG CAPSULE. PO PRN (09:10)
[2018-11-12] MEDS: LACTOBACILLUS RHAMNOSUS GG 1 CAPSULE. PO SCH ×2 (09:10→21:36)
[2018-11-12] MEDS: LURASIDONE 40 MG TABLET. PO SCH (09:10)
[2018-11-12] MEDS: POLYETHYLENE GLYCOL 3350 17 GM PACKET. PO SCH (09:10)
[2018-11-12] MEDS: LOSARTAN POTASSIUM 50 MG TABLET. PO SCH (09:11)
[2018-11-12] MEDS: CARVEDILOL 3.125 MG TABLET. PO SCH ×2 (09:11→16:22)
[2018-11-12] MEDS: MAGNESIUM OXIDE 400 MG TABLET PO SCH (09:11)
--- NOTE | 2018-11-12 09:29 | PDOC ---
PULMONARY PROGRESS NOTES Subjective on going nausea inability to eat well does not ambulate Vitals Vital Signs Date Time Temp Pulse Resp B/P (MAP) Pulse Ox O2 Delivery O2 Flow Rate FiO2 11/12/18 09:11 112 152/115 11/12/18 08:31 20 11/12/18 08:08 97 Room Air 11/12/18 07:00 98.3 98.3 11/11/18 18:08 2.0 General: Lethargic Lungs: Clear Cardiovascular: S1, S2 Abdomen: Soft, Other (obese) Extremities: Other (1+edema) Labs Laboratory Tests Test 11/12/18 06:00 White Blood Count 3.8 x10^3/uL (4.0-11.0) Red Blood Count 2.98 x10^6/uL (3.50-5.40) Hemoglobin 9.1 g/dL (12.0-15.5) Hematocrit 27.5 % (36.0-47.0) Mean Corpuscular Volume 92 fL (79-100) Mean Corpuscular Hemoglobin 31 pg (25-35) Mean Corpuscular Hemoglobin Concent 33 g/dL (31-37) Red Cell Distribution Width 17.3 % (11.5-14.5) Platelet Count 235 x10^3/uL (140-400) Neutrophils (%) (Auto) 43 % (31-73) Lymphocytes (%) (Auto) 47 % (24-48) Monocytes (%) (Auto) 9 % (0-9) Eosinophils (%) (Auto) 1 % (0-3) Basophils (%) (Auto) 1 % (0-3) Neutrophils # (Auto) 1.6 x10^3uL (1.8-7.7) Lymphocytes # (Auto) 1.8 x10^3/uL (1.0-4.8) Monocytes # (Auto) 0.3 x10^3/uL (0.0-1.1) Eosinophils # (Auto) 0.0 x10^3/uL (0.0-0.7) Basophils # (Auto) 0.0 x10^3/uL (0.0-0.2) Sodium Level 141 mmol/L (136-145) Potassium Level 3.3 mmol/L (3.5-5.1) Chloride Level 110 mmol/L (98-107) Carbon Dioxide Level 22 mmol/L (21-32) Anion Gap 9 (6-14) Blood Urea Nitrogen 5 mg/dL (7-20) Creatinine 0.4 mg/dL (0.6-1.0) Estimated GFR (Cockcroft-Gault) 208.9 BUN/Creatinine Ratio 13 (6-20) Glucose Level 121 mg/dL (70-99) Calcium Level 7.8 mg/dL (8.5-10.1) Total Bilirubin 2.4 mg/dL (0.2-1.0) Aspartate Amino Transf (AST/SGOT) 144 U/L (15-37) Alanine Aminotransferase (ALT/SGPT) 75 U/L (14-59) Alkaline Phosphatase 104 U/L (46-116) Total Protein 4.9 g/dL (6.4-8.2) Albumin 1.5 g/dL (3.4-5.0) Albumin/Globulin Ratio 0.4 (1.0-1.7) Laboratory Tests Test 11/12/18 06:00 White Blood Count 3.8 x10^3/uL (4.0-11.0) Red Blood Count 2.98 x10^6/uL (3.50-5.40) Hemoglobin 9.1 g/dL (12.0-15.5) Hematocrit 27.5 % (36.0-47.0) Mean Corpuscular Volume 92 fL (79-100) Mean Corpuscular Hemoglobin 31 pg (25-35) Mean Corpuscular Hemoglobin Concent 33 g/dL (31-37) Red Cell Distribution Width 17.3 % (11.5-14.5) Platelet Count 235 x10^3/uL (140-400) Neutrophils (%) (Auto) 43 % (31-73) Lymphocytes (%) (Auto) 47 % (24-48) Monocytes (%) (Auto) 9 % (0-9) Eosinophils (%) (Auto) 1 % (0-3) Basophils (%) (Auto) 1 % (0-3) Neutrophils # (Auto) 1.6 x10^3uL (1.8-7.7) Lymphocytes # (Auto) 1.8 x10^3/uL (1.0-4.8) Monocytes # (Auto) 0.3 x10^3/uL (0.0-1.1) Eosinophils # (Auto) 0.0 x10^3/uL (0.0-0.7) Basophils # (Auto) 0.0 x10^3/uL (0.0-0.2) Sodium Level 141 mmol/L (136-145) Potassium Level 3.3 mmol/L (3.5-5.1) Chloride Level 110 mmol/L (98-107) Carbon Dioxide Level 22 mmol/L (21-32) Anion Gap 9 (6-14) Blood Urea Nitrogen 5 mg/dL (7-20) Creatinine 0.4 mg/dL (0.6-1.0) Estimated GFR (Cockcroft-Gault) 208.9 BUN/Creatinine Ratio 13 (6-20) Glucose Level 121 mg/dL (70-99) Calcium Level 7.8 mg/dL (8.5-10.1) Total Bilirubin 2.4 mg/dL (0.2-1.0) Aspartate Amino Transf (AST/SGOT) 144 U/L (15-37) Alanine Aminotransferase (ALT/SGPT) 75 U/L (14-59) Alkaline Phosphatase 104 U/L (46-116) Total Protein 4.9 g/dL (6.4-8.2) Albumin 1.5 g/dL (3.4-5.0) Albumin/Globulin Ratio 0.4 (1.0-1.7) Medications Active Scripts Medications Dose Route/Sig Max Daily Dose Days Date Category Cozaar (Losartan Potassium) 50 Mg Tablet 100 Mg PO DAILY 30 07/05/18 Rx Carafate (Sucralfate) 1 Gm Tablet 1 Gm PO QIDACHS 04/21/18 Rx [Pantoprazole] 40 MG Tablet.dr 40 Mg PO BIDAC 04/21/18 Rx Carvedilol 3.125 Mg Tablet 3.125 Mg PO BIDWMEALS 04/18/18 Reported Xarelto (Rivaroxaban) 20 Mg Tablet 20 Mg PO DAILY 04/18/18 Reported Latuda (Lurasidone Hcl) 40 Mg Tablet 40 Mg PO DAILY 04/18/18 Reported Vitamin D3 (Cholecalciferol (Vitamin D3)) 50,000 Unit Capsule 50,000 Unit PO WEEKLY 04/18/18 Reported Folic Acid 1 Mg Tablet 1 Mg PO DAILY 04/18/18 Reported Magnesium Oxide 400 Mg Tablet 250 Mg PO DAILY 04/18/18 Reported Impression . 1. The patient with history of pulmonary embolism and deep venous thrombosis, now comes in with chest pain, which is probably related to her anastomotic ulcer. The CT angiogram and V/Q scan have been reviewed and do not show any new blood clot. The CTA shows chronic linear clot and the V/Q scan shows mismatched defect in the left lower lobe. The venous Doppler shows nonocclusive thrombus. 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 We need to closely monitor for any anemia or bleeding while on anticoagulation. 2. No history of hypercoagulable state. 3. Morbid obesity with decreased ambulation. 4. Loss of appetite secondary to ulcer, resulting in decreased oral intake. 5. s/p EGD/ small bowel series/ healed anastomotic ulcer 6. Narcotic seeking Plan . 1. Continue Xarelto. 2. I would recommend to have the patient follow up with [facility] where she has been regularly followed up and make future recommendation regarding continuation of Xarelto. 3. GI rec regarding ongoing nausea 4. Increase ambulation. 5. Weight loss is strongly emphasized. 6. Discussed with RN./ need PT GERMÁN COLEMAN MD Nov 12, 2018 09:29
[2018-11-12] MEDS: guaiFENesin ORAL 200 MG/10 ML LIQUID. PO PRN ×2 (09:43→19:38)
--- NOTE | 2018-11-12 10:55 | PDOC ---
PROGRESS NOTES Chief Complaint Chief Complaint Transaminitis most likely secondary to steatohepatitis Chest pain acute coronary syndrome ruled out History of pulmonary embolism last year Old thrombus noted, back on anticoagulation linear filling defects in the bilateral pulmonary arteries which could be secondary to old recanalized embolus. 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 Non adherence to PPI and carafate for ulcer treatment Inability to tolerate PO well persists History of IVC filter placement Obesity with BMI of 34 Mild bilirubinemia Hypokalemia and hyponatremia as a consequence of her poor oral intake, on replacement intractable nausea persists hypertension, suboptimal control History of Present Illness History of Present Illness Patient seen and examined at bedside. She continues to complain of nausea and reduced appetite. Discussed case with RN, patient also constipated. White count , Hgb low. Patient on Xarelto, hx of PE with IVC filter (at [facility]). GI and Pulm following. Vitals Vitals Vital Signs Date Time Temp Pulse Resp B/P (MAP) Pulse Ox O2 Delivery O2 Flow Rate FiO2 11/12/18 09:11 112 152/115 11/12/18 08:31 20 11/12/18 08:08 97 Room Air 11/12/18 07:00 98.3 98.3 11/11/18 18:08 2.0 Physical Exam General: Alert, Oriented X3, Cooperative, mild distress (nausea and vomiting) Heart: Regular rate (SR), Normal S1, Normal S2, Other (2/6 systolic murmur to LLS border) Lungs: Clear Abdomen: Normal bowel sounds, Soft, No tenderness Extremities: No clubbing, No cyanosis, No edema Skin: No rashes, No breakdown Labs LABS Laboratory Tests Test 11/12/18 06:00 White Blood Count 3.8 x10^3/uL (4.0-11.0) Red Blood Count 2.98 x10^6/uL (3.50-5.40) Hemoglobin 9.1 g/dL (12.0-15.5) Hematocrit 27.5 % (36.0-47.0) Mean Corpuscular Volume 92 fL (79-100) Mean Corpuscular Hemoglobin 31 pg (25-35) Mean Corpuscular Hemoglobin Concent 33 g/dL (31-37) Red Cell Distribution Width 17.3 % (11.5-14.5) Platelet Count 235 x10^3/uL (140-400) Neutrophils (%) (Auto) 43 % (31-73) Lymphocytes (%) (Auto) 47 % (24-48) Monocytes (%) (Auto) 9 % (0-9) Eosinophils (%) (Auto) 1 % (0-3) Basophils (%) (Auto) 1 % (0-3) Neutrophils # (Auto) 1.6 x10^3uL (1.8-7.7) Lymphocytes # (Auto) 1.8 x10^3/uL (1.0-4.8) Monocytes # (Auto) 0.3 x10^3/uL (0.0-1.1) Eosinophils # (Auto) 0.0 x10^3/uL (0.0-0.7) Basophils # (Auto) 0.0 x10^3/uL (0.0-0.2) Sodium Level 141 mmol/L (136-145) Potassium Level 3.3 mmol/L (3.5-5.1) Chloride Level 110 mmol/L (98-107) Carbon Dioxide Level 22 mmol/L (21-32) Anion Gap 9 (6-14) Blood Urea Nitrogen 5 mg/dL (7-20) Creatinine 0.4 mg/dL (0.6-1.0) Estimated GFR (Cockcroft-Gault) 208.9 BUN/Creatinine Ratio 13 (6-20) Glucose Level 121 mg/dL (70-99) Calcium Level 7.8 mg/dL (8.5-10.1) Total Bilirubin 2.4 mg/dL (0.2-1.0) Aspartate Amino Transf (AST/SGOT) 144 U/L (15-37) Alanine Aminotransferase (ALT/SGPT) 75 U/L (14-59) Alkaline Phosphatase 104 U/L (46-116) Total Protein 4.9 g/dL (6.4-8.2) Albumin 1.5 g/dL (3.4-5.0) Albumin/Globulin Ratio 0.4 (1.0-1.7) Review of Systems Review of Systems Reports nausea Reports loss of appetite Reports constipation Assessment and Plan Assessmemt and Plan Problems Medical Problems: (1) Chest pain Status: Acute (2) Elevated bilirubin Status: Acute Assessment: Transaminitis most likely secondary to steatohepatitis Chest pain acute coronary syndrome ruled out History of pulmonary embolism last year Old thrombus noted, back on anticoagulation linear filling defects in the bilateral pulmonary arteries which could be secondary to old recanalized embolus. 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 Non adherence to PPI and carafate for ulcer treatment Inability to tolerate PO well persists History of IVC filter placement Obesity with BMI of 34 Mild bilirubinemia Hypokalemia and hyponatremia as a consequence of her poor oral intake, on replacement intractable nausea persists hypertension, suboptimal control Plan: Started on dulcolax and milk of mag for constipation Replaced potassium PT/OT Started lortab prn Continue meropenem Awaiting GI input Continue to monitor vitals and labs Comment Review of Relevant I have reviewed the following items leo (where applicable) has been applied. Labs Laboratory Tests Test 11/12/18 06:00 White Blood Count 3.8 x10^3/uL (4.0-11.0) Red Blood Count 2.98 x10^6/uL (3.50-5.40) Hemoglobin 9.1 g/dL (12.0-15.5) Hematocrit 27.5 % (36.0-47.0) Mean Corpuscular Volume 92 fL (79-100) Mean Corpuscular Hemoglobin 31 pg (25-35) Mean Corpuscular Hemoglobin Concent 33 g/dL (31-37) Red Cell Distribution Width 17.3 % (11.5-14.5) Platelet Count 235 x10^3/uL (140-400) Neutrophils (%) (Auto) 43 % (31-73) Lymphocytes (%) (Auto) 47 % (24-48) Monocytes (%) (Auto) 9 % (0-9) Eosinophils (%) (Auto) 1 % (0-3) Basophils (%) (Auto) 1 % (0-3) Neutrophils # (Auto) 1.6 x10^3uL (1.8-7.7) Lymphocytes # (Auto) 1.8 x10^3/uL (1.0-4.8) Monocytes # (Auto) 0.3 x10^3/uL (0.0-1.1) Eosinophils # (Auto) 0.0 x10^3/uL (0.0-0.7) Basophils # (Auto) 0.0 x10^3/uL (0.0-0.2) Sodium Level 141 mmol/L (136-145) Potassium Level 3.3 mmol/L (3.5-5.1) Chloride Level 110 mmol/L (98-107) Carbon Dioxide Level 22 mmol/L (21-32) Anion Gap 9 (6-14) Blood Urea Nitrogen 5 mg/dL (7-20) Creatinine 0.4 mg/dL (0.6-1.0) Estimated GFR (Cockcroft-Gault) 208.9 BUN/Creatinine Ratio 13 (6-20) Glucose Level 121 mg/dL (70-99) Calcium Level 7.8 mg/dL (8.5-10.1) Total Bilirubin 2.4 mg/dL (0.2-1.0) Aspartate Amino Transf (AST/SGOT) 144 U/L (15-37) Alanine Aminotransferase (ALT/SGPT) 75 U/L (14-59) Alkaline Phosphatase 104 U/L (46-116) Total Protein 4.9 g/dL (6.4-8.2) Albumin 1.5 g/dL (3.4-5.0) Albumin/Globulin Ratio 0.4 (1.0-1.7) Laboratory Tests Test 11/12/18 06:00 White Blood Count 3.8 x10^3/uL (4.0-11.0) Red Blood Count 2.98 x10^6/uL (3.50-5.40) Hemoglobin 9.1 g/dL (12.0-15.5) Hematocrit 27.5 % (36.0-47.0) Mean Corpuscular Volume 92 fL (79-100) Mean Corpuscular Hemoglobin 31 pg (25-35) Mean Corpuscular Hemoglobin Concent 33 g/dL (31-37) Red Cell Distribution Width 17.3 % (11.5-14.5) Platelet Count 235 x10^3/uL (140-400) Neutrophils (%) (Auto) 43 % (31-73) Lymphocytes (%) (Auto) 47 % (24-48) Monocytes (%) (Auto) 9 % (0-9) Eosinophils (%) (Auto) 1 % (0-3) Basophils (%) (Auto) 1 % (0-3) Neutrophils # (Auto) 1.6 x10^3uL (1.8-7.7) Lymphocytes # (Auto) 1.8 x10^3/uL (1.0-4.8) Monocytes # (Auto) 0.3 x10^3/uL (0.0-1.1) Eosinophils # (Auto) 0.0 x10^3/uL (0.0-0.7) Basophils # (Auto) 0.0 x10^3/uL (0.0-0.2) Sodium Level 141 mmol/L (136-145) Potassium Level 3.3 mmol/L (3.5-5.1) Chloride Level 110 mmol/L (98-107) Carbon Dioxide Level 22 mmol/L (21-32) Anion Gap 9 (6-14) Blood Urea Nitrogen 5 mg/dL (7-20) Creatinine 0.4 mg/dL (0.6-1.0) Estimated GFR (Cockcroft-Gault) 208.9 BUN/Creatinine Ratio 13 (6-20) Glucose Level 121 mg/dL (70-99) Calcium Level 7.8 mg/dL (8.5-10.1) Total Bilirubin 2.4 mg/dL (0.2-1.0) Aspartate Amino Transf (AST/SGOT) 144 U/L (15-37) Alanine Aminotransferase (ALT/SGPT) 75 U/L (14-59) Alkaline Phosphatase 104 U/L (46-116) Total Protein 4.9 g/dL (6.4-8.2) Albumin 1.5 g/dL (3.4-5.0) Albumin/Globulin Ratio 0.4 (1.0-1.7) Microbiology 11/06/18 Urine Culture - Final, Complete 11/06/18 Urine Culture Result 1 ([facility]) - Final, Complete 11/06/18 Antimicrobic Susceptibility - Final, Complete Medications Current Medications Aspirin (Children'S Aspirin) 324 mg 1X ONCE PO Last administered on 11/06/18at 10:44; Start 11/06/18 at 09:15; Stop 11/06/18 at 09:18; Status DC Morphine Sulfate (Morphine Sulfate) 4 mg PRN Q15MIN PRN IV/SQ PAIN GREATER THAN 3/10 Last administered on 11/06/18at 13:14; Start 11/06/18 at 09:15; Stop 3 /19/19 at 09:14; Status DC Ondansetron HCl (Zofran) 4 mg 1X ONCE IV Last administered on 11/06/18at 10:44 ; Start 11/06/18 at 09:15; Stop 11/06/18 at 09:18; Status DC Iohexol (Omnipaque 350 Mg/ml) 100 ml 1X ONCE IV Last administered on 22:00; Start 11/06/18 at 11:30; Stop 11/06/18 at 11:33; Status DC Info (CONTRAST GIVEN -- Rx MONITORING) 1 each PRN DAILY PRN MC SEE COMMENTS; Start 11/06/18 at 11:45; Stop 11/08/18 at 11:44; Status DC Levofloxacin/ Dextrose 100 ml @ 100 mls/hr 1X ONCE IV Last administered on 15:30; Start 11/06/18 at 13:15; Stop 11/06/18 at 14:14; Status DC Ondansetron HCl (Zofran) 4 mg PRN Q4HRS PRN IV NAUSEA/VOMITING Last administered on 11/12/18 08:01; Start 11/06/18 at 13:30 Zolpidem Tartrate (Ambien) 5 mg PRN QHS PRN PO INSOMNIA; Start 11/06/18 at 13: 30 Acetaminophen (Tylenol) 650 mg PRN Q4HRS PRN PO TEMP OVER 100.4F OR MILD PAIN Last administered on 11/06/18 17:10; Start 11/06/18 at 13:30 Al Hydroxide/Mg Hydroxide (Mylanta Plus Xs) 30 ml PRN DAILY PRN PO HEARTBURN / GAS; Start 11/06/18 at 13:30 Clonidine HCl (Catapres) 0.1 mg PRN Q6HRS PRN PO SBP>160 OR DBP>90; Start 11/06 at 13:30 Diphenhydramine HCl (Benadryl) 25 mg PRN Q4HRS PRN IVP ITCHING; Start 11/06/18 at 13:30 Docusate Sodium (Colace) 100 mg PRN BID PRN PO CONSTIPATION Last administered on 11/12/18 09:10; Start 11/06/18 at 13:30 Albuterol Sulfate (Ventolin Neb Soln) 2.5 mg PRN Q4HRS PRN NEB SHORTNESS OF BREATH Last administered on 11/12/18 08:08; Start 11/06/18 at 13:30 Guaifenesin (Robitussin) 200 mg PRN Q4HRS PRN PO COUGH Last administered on 09:43; Start 11/06/18 at 13:30 Lorazepam (Ativan) 0.5 mg PRN Q4HRS PRN PO ANXIETY / AGITATION; Start 11/06/18 at 13:30 Carvedilol (Coreg) 3.125 mg BIDWMEALS PO Last administered on 11/12/18 09:11; Start 11/06/18 at 17:00 Folic Acid (Folic Acid) 1 mg DAILY PO Last administered on 11/12/18 09:10; Start 11/06/18 at 15:00 Losartan Potassium (Cozaar) 100 mg DAILY PO Last administered on 11/12/18 09: 11; Start 11/06/18 at 15:00 Lurasidone HCl (Latuda) 40 mg DAILY PO Last administered on 11/12/18 09:10; Start 11/06/18 at 15:00 Ergocalciferol (Vitamin D2) 50,000 unit WEEKLY PO ; Start 11/06/18 at 15:00 Magnesium Oxide (Magnesium Oxide) 200 mg DAILY PO Last administered on 09:11; Start 11/06/18 at 15:00 Rivaroxaban (Xarelto) 20 mg DAILYWSUP PO ; Start 11/06/18 at 17:00; Stop at 17:00; Status DC Sucralfate (Carafate) 1 gm QIDACHS PO Last administered on 11/12/18 08:00; Start 11/06/18 at 16:30 Pantoprazole Sodium (Protonix) 40 mg BIDAC PO Last administered on 11/12/18 08 :00; Start 11/06/18 at 16:30 Info (Anti-Coagulation Monitoring By Pharmacy) 1 each PRN DAILY PRN MC SEE COMMENTS Last administered on 11/07/18 10:59; Start 11/06/18 at 14:15 Potassium Chloride (KCl Oral Soln) 20 meq 1X ONCE PEG Last administered on 3/ 18/19at 17:09; Start 11/06/18 at 15:00; Stop 11/06/18 at 15:01; Status DC Heparin Sodium/ Dextrose 500 ml @ 0 mls/hr CONT PRN IV SEE I/O RECORD; Start at 16:30; Status UNV Heparin Sodium (Porcine) (Heparin Sodium) 6,600 unit 1X ONCE IV Last administered on 11/06/18 17:20; Start 11/06/18 at 16:30; Stop 11/07/18 at 09:48 ; Status DC Heparin Sodium/ Dextrose 500 ml @ 0 mls/hr CONT PRN IV SEE I/O RECORD Last administered on 11/06/18at 17:32; Start 11/06/18 at 16:30; Stop 11/07/18 at 09:48 ; Status DC Heparin Sodium (Porcine) (Heparin Sodium) 2,500 unit PRN Q6HRS PRN IV FOR UFH LEVEL LESS THAN 0.2; Start 11/06/18 at 16:30; Stop 11/07/18 at 09:48; Status DC Heparin Sodium (Porcine) (Heparin Sodium) 1,200 unit PRN Q6HRS PRN IV FOR UFH LEVEL 0.2 - 0.29; Start 11/06/18 at 16:30; Stop 11/07/18 at 09:48; Status DC Morphine Sulfate (Morphine Sulfate) 2 mg Q3HRS PRN IV PAIN Last administered on 11/12/18 08:01; Start 11/06/18 at 19:30 Iohexol (Omnipaque 350 Mg/ml) 100 ml STK-MED ONCE .ROUTE ; Start 11/07/18 at 02: 38; Stop 11/07/18 at 02:39; Status DC Rivaroxaban (Xarelto) 20 mg DAILYWSUP PO Last administered on 11/11/18 17:02; Start 11/07/18 at 10:00 Bisacodyl (Dulcolax Tab) 5 mg 1X ONCE PO Last administered on 11/07/18 13:40 ; Start 11/07/18 at 14:00; Stop 11/07/18 at 14:01; Status DC Polyethylene Glycol (miraLAX PACKET) 17 gm DAILY PO Last administered on at 09:10; Start 11/07/18 at 14:00 Midazolam HCl (Versed) 2 mg PRN 1X PRN IV PRIOR TO PROCEDURE; Start 11/08/18 at 09:30; Stop 11/09/18 at 09:29; Status DC Ringer's Solution 1,000 ml @ 125 mls/hr Q8H IV Last administered on 11/08/18at 09:28; Start 11/08/18 at 09:24; Stop 11/08/18 at 21:23; Status DC Lidocaine HCl (Xylocaine-Mpf 1% 2ml Vial) 2 ml 1X PRN PRN ID IV START; Start at 09:30; Stop 11/09/18 at 09:29; Status DC Barium Sulfate (Liquid E-Z Paque) 711 ml 1X ONCE PO Last administered on at 10:15; Start 11/08/18 at 10:15; Stop 11/08/18 at 10:17; Status DC Ciprofloxacin (Cipro) 500 mg BID PO Last administered on 11/10/18at 08:32; Start 11/08/18 at 15:00; Stop 11/10/18 at 14:17; Status DC Iohexol (Omnipaque 300 Mg/ml) 70 ml 1X ONCE IV Last administered on 11/08/18at 08:36; Start 11/08/18 at 17:15; Stop 11/08/18 at 17:16; Status DC Info (CONTRAST GIVEN -- Rx MONITORING) 1 each PRN DAILY PRN MC SEE COMMENTS; Start 11/08/18 at 17:15; Stop 11/10/18 at 17:14; Status DC Lactobacillus Rhamnosus (Culturelle) 1 cap BID PO Last administered on at 09:10; Start 11/09/18 at 09:00 Potassium Chloride (Klor-Con) 40 meq 1X ONCE PO Last administered on at 18:15; Start 11/09/18 at 19:00; Stop 11/09/18 at 19:01; Status DC Potassium Chloride (Klor-Con) 40 meq 1X ONCE PO Last administered on at 15:02; Start 11/10/18 at 15:00; Stop 11/10/18 at 15:01; Status DC Meropenem 500 mg/ Sodium Chloride 50 ml @ 100 mls/hr Q8HRS IV Last administered on 11/12/18at 05:55; Start 11/10/18 at 15:00 Potassium Chloride (Klor-Con) 40 meq 1X ONCE PO ; Start 11/12/18 at 11:00; Stop 11/12/18 at 11:01; Status UNV Acetaminophen/ Hydrocodone Bitart (Lortab 5/325) 1 tab PRN Q4HRS PRN PO PAIN; Start 11/12/18 at 11:00; Status UNV Magnesium Hydroxide (Milk Of Magnesia) 2,400 mg PRN DAILY PRN PO CONSTIPATION; Start 11/12/18 at 11:00; Status UNV Bisacodyl (Dulcolax Supp) 10 mg PRN DAILY PRN [place] CONSTIPATION; Start 11/12/18 at 11:00; Status UNV Active Scripts Active Cozaar (Losartan Potassium) 50 Mg Tablet 100 Mg PO DAILY 30 Days Carafate (Sucralfate) 1 Gm Tablet 1 Gm PO QIDACHS [Pantoprazole] 40 MG Tablet.dr 40 Mg PO BIDAC Reported Carvedilol 3.125 Mg Tablet 3.125 Mg PO BIDWMEALS Xarelto (Rivaroxaban) 20 Mg Tablet 20 Mg PO DAILY Latuda (Lurasidone Hcl) 40 Mg Tablet 40 Mg PO DAILY Vitamin D3 (Cholecalciferol (Vitamin D3)) 50,000 Unit Capsule 50,000 Unit PO WEEKLY Folic Acid 1 Mg Tablet 1 Mg PO DAILY Magnesium Oxide 400 Mg Tablet 250 Mg PO DAILY Vitals/I & O Vital Sign - Last 24 Hours 11/11/18 11/11/18 11/11/18 11/11/18 11:00 11:50 15:00 15:02 Temp 98.7 98.8 98.7 98.8 Pulse 93 93 Resp 16 18 16 18 B/P (MAP) 131/89 (103) 159/98 (118) Pulse Ox 94 97 95 97 O2 Delivery Room Air Room Air Room Air Room Air O2 Flow Rate 2.0 11/11/18 11/11/18 11/11/18 11/11/18 17:02 18:08 19:06 20:00 Temp 98.9 98.9 Pulse 93 98 Resp 18 16 B/P (MAP) 159/98 150/105 (120) Pulse Ox 97 94 O2 Delivery Room Air Room Air Room Air O2 Flow Rate 2.0 11/11/18 11/12/18 11/12/18 11/12/18 22:32 01:40 02:10 03:35 Temp 98.0 98.4 98.0 98.4 Pulse 80 83 Resp 16 16 B/P (MAP) 102/71 (81) 128/91 (103) Pulse Ox 94 94 94 O2 Delivery Room Air Room Air Room Air Room Air 11/12/18 11/12/18 11/12/18 11/12/18 07:00 08:00 08:01 08:08 Temp 98.3 98.3 Pulse 112 Resp 16 20 B/P (MAP) 152/115 (127) Pulse Ox 97 97 O2 Delivery Room Air Room Air Room Air 11/12/18 11/12/18 11/12/18 08:31 09:11 09:11 Pulse 112 112 Resp 20 B/P (MAP) 152/115 152/115 Intake and Output 11/11/18 11/11/18 11/12/18 15:00 23:00 07:00 Intake Total 530 ml 290 ml 300 ml Output Total 600 ml 100 ml Balance -70 ml 190 ml 300 ml Nutrition Consultation Dietary Evaluation: Recommendations by RD: Protein supplementation Comments: REC cardiac/ADA diet per pmhx, will adjust diet order REC Glucerna TID for protein intake while pt's appetite remains poor, dietary notified Expected Outcomes/Goals: PO intake to meet >75% est needs Interpretation of weight loss: >5% in 1 month Malnutrition Findings: Food and Nutrition Intake (Mod: <75% est energy req 7days Weight Status: Obese AUGUSTO DEVRIES III DO Nov 12, 2018 10:55
[2018-11-12 11:00] VITALS: BP 146/105
[2018-11-12] MEDS ORDERED: POTASSIUM CHLORIDE 20 MEQ TABLET.ER. PO ONE (11:00)
[2018-11-12] MEDS ORDERED: BISACODYL 10 MG SUPP.RECT. PR PRN (11:00)
[2018-11-12] MEDS: MAGNESIUM HYDROXIDE 2,400 MG/30 ML ORAL.SUSP. PO PRN (11:32)
[2018-11-12 15:00] VITALS: BP 156/104
[2018-11-12] MEDS: HYDROcodone/APAP 5/325MG 1 TAB TABLET PO PRN (15:00)
[2018-11-12] MEDS: RIVAROXABAN 10 MG TABLET. PO SCH (16:23)
[2018-11-12 19:11] VITALS: BP 165/114
[2018-11-12] MEDS: cloNIDine HCL 0.1 MG TABLET PO PRN (19:39)
[2018-11-12] MEDS: ZOLPIDEM 5 MG TABLET. PO PRN (21:36)
[2018-11-12 22:46] VITALS: BP 104/74
[2018-11-13 03:19] VITALS: BP 131/80
[2018-11-13] MEDS: ONDANSETRON PF 4 MG/2 ML VIAL. IV PRN ×5 (03:41→21:23)
[2018-11-13] MEDS: MORPHINE SULFATE 2 MG/ML VIAL. IV PRN ×5 (03:41→20:28)
[2018-11-13] MEDS: MEROPENEM 500 MG in IV NORMAL SALINE 50ML 50 ML IV SCH ×3 (05:38→21:31)
[2018-11-13 06:07] LABS: BASO # 0.1 x10^3/uL (0.0-0.2); BASO % 2 % (0-3); EOS % 1 % (0-3); HEMATOCRIT 27.3 % (36.0-47.0); HEMOGLOBIN 8.8 g/dL (12.0-15.5); LYMPH # 1.9 x10^3/uL (1.0-4.8); LYMPH % 54 % (24-48); MEAN CORPUSCULAR HEMOGLOBIN 30 pg (25-35); MEAN CORPUSCULAR HGB CONC 32 g/dL (31-37); MEAN CORPUSCULAR VOLUME 92 fL (79-100); MONO # 0.4 x10^3/uL (0.0-1.1); MONO % 11 % (0-9); NEUT # 1.2 x10^3uL (1.8-7.7); NEUT % 33 % (31-73); PLATELET COUNT 248 x10^3/uL (140-400); RED BLOOD COUNT 2.96 x10^6/uL (3.50-5.40); RED CELL DISTRIBUTION WIDTH 17.1 % (11.5-14.5); WHITE BLOOD COUNT 3.5 x10^3/uL (4.0-11.0)
[2018-11-13 06:20] LABS: ALBUMIN 1.5 g/dL (3.4-5.0); ALBUMIN/GLOBULIN RATIO 0.4 (1.0-1.7); CALCIUM 7.9 mg/dL (8.5-10.1); CREATININE 0.4 mg/dL (0.6-1.0); GFR 208.9; POTASSIUM 3.6 mmol/L (3.5-5.1); TOTAL BILIRUBIN 2.6 mg/dL (0.2-1.0)
[2018-11-13 07:33] VITALS: BP 134/86
[2018-11-13] MEDS: CARVEDILOL 3.125 MG TABLET. PO SCH ×2 (08:06→16:29)
[2018-11-13] MEDS: DOCUSATE SODIUM 100 MG CAPSULE. PO PRN (08:06)
[2018-11-13] MEDS: FOLIC ACID 1 MG TABLET. PO SCH (08:06)
[2018-11-13] MEDS: LACTOBACILLUS RHAMNOSUS GG 1 CAPSULE. PO SCH ×2 (08:06→21:22)
[2018-11-13] MEDS: ERGOCALCIFEROL (VITAMIN D2) 50,000 UNIT CAPSULE. PO SCH (08:07)
[2018-11-13] MEDS: MAGNESIUM OXIDE 400 MG TABLET PO SCH (08:07)
[2018-11-13] MEDS: LOSARTAN POTASSIUM 50 MG TABLET. PO SCH (08:07)
[2018-11-13] MEDS: LURASIDONE 40 MG TABLET. PO SCH (08:08)
[2018-11-13] MEDS: PANTOPRAZOLE 40 MG TABLET.DR. PO SCH ×2 (08:08→16:30)
[2018-11-13] MEDS: SUCRALFATE 1 GM TABLET. PO SCH ×4 (08:08→21:22)
[2018-11-13] MEDS: POLYETHYLENE GLYCOL 3350 17 GM PACKET. PO SCH (08:16)
[2018-11-13] MEDS: MAGNESIUM HYDROXIDE 2,400 MG/30 ML ORAL.SUSP. PO PRN (08:17)
--- NOTE | 2018-11-13 09:30 | PDOC ---
PULMONARY PROGRESS NOTES Subjective STILL NOT FEELING WELL NOT MORE SOA NO PLEURITIC PAIN Vitals Vital Signs Date Time Temp Pulse Resp B/P (MAP) Pulse Ox O2 Delivery O2 Flow Rate FiO2 11/13/18 09:14 Room Air 11/13/18 08:07 89 134/86 11/13/18 07:33 97.5 18 97 97.5 General: Alert, Lethargic Lungs: Clear Cardiovascular: S1, S2 Abdomen: Soft, Other (obese) Neuro Exam: Alert Extremities: Other (1+edema) Skin: Warm Labs Laboratory Tests Test 11/12/18 06:00 11/13/18 05:40 White Blood Count 3.8 x10^3/uL (4.0-11.0) 3.5 x10^3/uL (4.0-11.0) Red Blood Count 2.98 x10^6/uL (3.50-5.40) 2.96 x10^6/uL (3.50-5.40) Hemoglobin 9.1 g/dL (12.0-15.5) 8.8 g/dL (12.0-15.5) Hematocrit 27.5 % (36.0-47.0) 27.3 % (36.0-47.0) Mean Corpuscular Volume 92 fL (79-100) 92 fL (79-100) Mean Corpuscular Hemoglobin 31 pg (25-35) 30 pg (25-35) Mean Corpuscular Hemoglobin Concent 33 g/dL (31-37) 32 g/dL (31-37) Red Cell Distribution Width 17.3 % (11.5-14.5) 17.1 % (11.5-14.5) Platelet Count 235 x10^3/uL (140-400) 248 x10^3/uL (140-400) Neutrophils (%) (Auto) 43 % (31-73) 33 % (31-73) Lymphocytes (%) (Auto) 47 % (24-48) 54 % (24-48) Monocytes (%) (Auto) 9 % (0-9) 11 % (0-9) Eosinophils (%) (Auto) 1 % (0-3) 1 % (0-3) Basophils (%) (Auto) 1 % (0-3) 2 % (0-3) Neutrophils # (Auto) 1.6 x10^3uL (1.8-7.7) 1.2 x10^3uL (1.8-7.7) Lymphocytes # (Auto) 1.8 x10^3/uL (1.0-4.8) 1.9 x10^3/uL (1.0-4.8) Monocytes # (Auto) 0.3 x10^3/uL (0.0-1.1) 0.4 x10^3/uL (0.0-1.1) Eosinophils # (Auto) 0.0 x10^3/uL (0.0-0.7) 0.0 x10^3/uL (0.0-0.7) Basophils # (Auto) 0.0 x10^3/uL (0.0-0.2) 0.1 x10^3/uL (0.0-0.2) Sodium Level 141 mmol/L (136-145) 142 mmol/L (136-145) Potassium Level 3.3 mmol/L (3.5-5.1) 3.6 mmol/L (3.5-5.1) Chloride Level 110 mmol/L (98-107) 109 mmol/L (98-107) Carbon Dioxide Level 22 mmol/L (21-32) 22 mmol/L (21-32) Anion Gap 9 (6-14) 11 (6-14) Blood Urea Nitrogen 5 mg/dL (7-20) 4 mg/dL (7-20) Creatinine 0.4 mg/dL (0.6-1.0) 0.4 mg/dL (0.6-1.0) Estimated GFR (Cockcroft-Gault) 208.9 208.9 BUN/Creatinine Ratio 13 (6-20) 10 (6-20) Glucose Level 121 mg/dL (70-99) 125 mg/dL (70-99) Calcium Level 7.8 mg/dL (8.5-10.1) 7.9 mg/dL (8.5-10.1) Total Bilirubin 2.4 mg/dL (0.2-1.0) 2.6 mg/dL (0.2-1.0) Aspartate Amino Transf (AST/SGOT) 144 U/L (15-37) 191 U/L (15-37) Alanine Aminotransferase (ALT/SGPT) 75 U/L (14-59) 80 U/L (14-59) Alkaline Phosphatase 104 U/L (46-116) 102 U/L (46-116) Total Protein 4.9 g/dL (6.4-8.2) 5.0 g/dL (6.4-8.2) Albumin 1.5 g/dL (3.4-5.0) 1.5 g/dL (3.4-5.0) Albumin/Globulin Ratio 0.4 (1.0-1.7) 0.4 (1.0-1.7) Laboratory Tests Test 11/13/18 05:40 White Blood Count 3.5 x10^3/uL (4.0-11.0) Red Blood Count 2.96 x10^6/uL (3.50-5.40) Hemoglobin 8.8 g/dL (12.0-15.5) Hematocrit 27.3 % (36.0-47.0) Mean Corpuscular Volume 92 fL (79-100) Mean Corpuscular Hemoglobin 30 pg (25-35) Mean Corpuscular Hemoglobin Concent 32 g/dL (31-37) Red Cell Distribution Width 17.1 % (11.5-14.5) Platelet Count 248 x10^3/uL (140-400) Neutrophils (%) (Auto) 33 % (31-73) Lymphocytes (%) (Auto) 54 % (24-48) Monocytes (%) (Auto) 11 % (0-9) Eosinophils (%) (Auto) 1 % (0-3) Basophils (%) (Auto) 2 % (0-3) Neutrophils # (Auto) 1.2 x10^3uL (1.8-7.7) Lymphocytes # (Auto) 1.9 x10^3/uL (1.0-4.8) Monocytes # (Auto) 0.4 x10^3/uL (0.0-1.1) Eosinophils # (Auto) 0.0 x10^3/uL (0.0-0.7) Basophils # (Auto) 0.1 x10^3/uL (0.0-0.2) Sodium Level 142 mmol/L (136-145) Potassium Level 3.6 mmol/L (3.5-5.1) Chloride Level 109 mmol/L (98-107) Carbon Dioxide Level 22 mmol/L (21-32) Anion Gap 11 (6-14) Blood Urea Nitrogen 4 mg/dL (7-20) Creatinine 0.4 mg/dL (0.6-1.0) Estimated GFR (Cockcroft-Gault) 208.9 BUN/Creatinine Ratio 10 (6-20) Glucose Level 125 mg/dL (70-99) Calcium Level 7.9 mg/dL (8.5-10.1) Total Bilirubin 2.6 mg/dL (0.2-1.0) Aspartate Amino Transf (AST/SGOT) 191 U/L (15-37) Alanine Aminotransferase (ALT/SGPT) 80 U/L (14-59) Alkaline Phosphatase 102 U/L (46-116) Total Protein 5.0 g/dL (6.4-8.2) Albumin 1.5 g/dL (3.4-5.0) Albumin/Globulin Ratio 0.4 (1.0-1.7) Medications Active Scripts Medications Dose Route/Sig Max Daily Dose Days Date Category Cozaar (Losartan Potassium) 50 Mg Tablet 100 Mg PO DAILY 30 07/05/18 Rx Carafate (Sucralfate) 1 Gm Tablet 1 Gm PO QIDACHS 04/21/18 Rx [Pantoprazole] 40 MG Tablet.dr 40 Mg PO BIDAC 04/21/18 Rx Carvedilol 3.125 Mg Tablet 3.125 Mg PO BIDWMEALS 04/18/18 Reported Xarelto (Rivaroxaban) 20 Mg Tablet 20 Mg PO DAILY 04/18/18 Reported Latuda (Lurasidone Hcl) 40 Mg Tablet 40 Mg PO DAILY 04/18/18 Reported Vitamin D3 (Cholecalciferol (Vitamin D3)) 50,000 Unit Capsule 50,000 Unit PO WEEKLY 04/18/18 Reported Folic Acid 1 Mg Tablet 1 Mg PO DAILY 04/18/18 Reported Magnesium Oxide 400 Mg Tablet 250 Mg PO DAILY 04/18/18 Reported Impression . 1. The patient with history of pulmonary embolism and deep venous thrombosis, now comes in with chest pain, which is probably related to her anastomotic ulcer. The CT angiogram and V/Q scan have been reviewed and do not show any new blood clot. The CTA shows chronic linear clot and the V/Q scan shows mismatched defect in the left lower lobe. The venous Doppler shows nonocclusive thrombus. 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 We need to closely monitor for any anemia or bleeding while on anticoagulation. 2. No history of hypercoagulable state. 3. Morbid obesity with decreased ambulation. 4. Loss of appetite secondary to ulcer, resulting in decreased oral intake. 5. s/p EGD/ small bowel series/ healed anastomotic ulcer 6. Narcotic seeking Plan . RESP STATUS IS COMPENSATED WILL CONTINUE THE SAME 1. Continue Xarelto. 2. I would recommend to have the patient follow up with [facility] where she has been regularly followed up and make future recommendation regarding continuation of Xarelto. 3. GI rec regarding ongoing nausea 4. Increase ambulation. 5. Weight loss is strongly emphasized. 6. Discussed with RN./ need PT KASI WORKMAN MD Nov 13, 2018 09:30
[2018-11-13] MEDS: guaiFENesin ORAL 200 MG/10 ML LIQUID. PO PRN ×2 (10:58→19:29)
--- NOTE | 2018-11-13 11:12 | PDOC ---
PROGRESS NOTES Chief Complaint Chief Complaint Transaminitis most likely secondary to steatohepatitis Chest pain acute coronary syndrome ruled out UTI: 5-10WBC, positive nitrite and LE History of pulmonary embolism last year Old thrombus noted, back on anticoagulation linear filling defects in the bilateral pulmonary arteries which could be secondary to old recanalized embolus. 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 Non adherence to PPI and carafate for ulcer treatment Inability to tolerate PO well persists History of IVC filter placement Obesity with BMI of 34 Mild bilirubinemia Hypokalemia and hyponatremia as a consequence of her poor oral intake, on replacement intractable nausea persists hypertension, suboptimal control History of Present Illness History of Present Illness Patient seen and examined at bedside. She continues to complain of nausea and reduced appetite. She is also c/o abdominal and chest wall pain. Patient on Xarelto, hx of PE with IVC filter (at [facility]). AST/ALT remain elevated. GI following. Vitals Vitals Vital Signs Date Time Temp Pulse Resp B/P (MAP) Pulse Ox O2 Delivery O2 Flow Rate FiO2 11/13/18 09:14 Room Air 11/13/18 08:07 89 134/86 11/13/18 07:33 97.5 18 97 97.5 Physical Exam General: Alert, Oriented X3, Cooperative, mild distress (nausea and vomiting) Heart: Regular rate (SR), Normal S1, Normal S2, Other (2/6 systolic murmur to LLS border) Lungs: Clear Abdomen: Normal bowel sounds, Soft, No tenderness Extremities: No clubbing, No cyanosis, No edema Skin: No rashes, No breakdown Labs LABS Laboratory Tests Test 11/13/18 05:40 White Blood Count 3.5 x10^3/uL (4.0-11.0) Red Blood Count 2.96 x10^6/uL (3.50-5.40) Hemoglobin 8.8 g/dL (12.0-15.5) Hematocrit 27.3 % (36.0-47.0) Mean Corpuscular Volume 92 fL (79-100) Mean Corpuscular Hemoglobin 30 pg (25-35) Mean Corpuscular Hemoglobin Concent 32 g/dL (31-37) Red Cell Distribution Width 17.1 % (11.5-14.5) Platelet Count 248 x10^3/uL (140-400) Neutrophils (%) (Auto) 33 % (31-73) Lymphocytes (%) (Auto) 54 % (24-48) Monocytes (%) (Auto) 11 % (0-9) Eosinophils (%) (Auto) 1 % (0-3) Basophils (%) (Auto) 2 % (0-3) Neutrophils # (Auto) 1.2 x10^3uL (1.8-7.7) Lymphocytes # (Auto) 1.9 x10^3/uL (1.0-4.8) Monocytes # (Auto) 0.4 x10^3/uL (0.0-1.1) Eosinophils # (Auto) 0.0 x10^3/uL (0.0-0.7) Basophils # (Auto) 0.1 x10^3/uL (0.0-0.2) Sodium Level 142 mmol/L (136-145) Potassium Level 3.6 mmol/L (3.5-5.1) Chloride Level 109 mmol/L (98-107) Carbon Dioxide Level 22 mmol/L (21-32) Anion Gap 11 (6-14) Blood Urea Nitrogen 4 mg/dL (7-20) Creatinine 0.4 mg/dL (0.6-1.0) Estimated GFR (Cockcroft-Gault) 208.9 BUN/Creatinine Ratio 10 (6-20) Glucose Level 125 mg/dL (70-99) Calcium Level 7.9 mg/dL (8.5-10.1) Total Bilirubin 2.6 mg/dL (0.2-1.0) Aspartate Amino Transf (AST/SGOT) 191 U/L (15-37) Alanine Aminotransferase (ALT/SGPT) 80 U/L (14-59) Alkaline Phosphatase 102 U/L (46-116) Total Protein 5.0 g/dL (6.4-8.2) Albumin 1.5 g/dL (3.4-5.0) Albumin/Globulin Ratio 0.4 (1.0-1.7) Review of Systems Review of Systems Reports nausea Reports abdominal pain Reports chest wall pain Assessment and Plan Assessmemt and Plan Problems Medical Problems: (1) Chest pain Status: Acute (2) Elevated bilirubin Status: Acute Assessment: Transaminitis most likely secondary to steatohepatitis Chest pain acute coronary syndrome ruled out UTI: 5-10WBC, positive nitrite and LE History of pulmonary embolism last year Old thrombus noted, back on anticoagulation linear filling defects in the bilateral pulmonary arteries which could be secondary to old recanalized embolus. 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 Non adherence to PPI and carafate for ulcer treatment Inability to tolerate PO well persists History of IVC filter placement Obesity with BMI of 34 Mild bilirubinemia Hypokalemia and hyponatremia as a consequence of her poor oral intake, on replacement intractable nausea persists hypertension, suboptimal control Plan: Continue meropenem IV for UTI Appreciate GI input SNU eval, hope to discharge to SNU tomorrow PT/OT Monitor labs Monitor vitals Continue home meds Comment Review of Relevant I have reviewed the following items leo (where applicable) has been applied. Labs Laboratory Tests Test 11/12/18 06:00 11/13/18 05:40 White Blood Count 3.8 x10^3/uL (4.0-11.0) 3.5 x10^3/uL (4.0-11.0) Red Blood Count 2.98 x10^6/uL (3.50-5.40) 2.96 x10^6/uL (3.50-5.40) Hemoglobin 9.1 g/dL (12.0-15.5) 8.8 g/dL (12.0-15.5) Hematocrit 27.5 % (36.0-47.0) 27.3 % (36.0-47.0) Mean Corpuscular Volume 92 fL (79-100) 92 fL (79-100) Mean Corpuscular Hemoglobin 31 pg (25-35) 30 pg (25-35) Mean Corpuscular Hemoglobin Concent 33 g/dL (31-37) 32 g/dL (31-37) Red Cell Distribution Width 17.3 % (11.5-14.5) 17.1 % (11.5-14.5) Platelet Count 235 x10^3/uL (140-400) 248 x10^3/uL (140-400) Neutrophils (%) (Auto) 43 % (31-73) 33 % (31-73) Lymphocytes (%) (Auto) 47 % (24-48) 54 % (24-48) Monocytes (%) (Auto) 9 % (0-9) 11 % (0-9) Eosinophils (%) (Auto) 1 % (0-3) 1 % (0-3) Basophils (%) (Auto) 1 % (0-3) 2 % (0-3) Neutrophils # (Auto) 1.6 x10^3uL (1.8-7.7) 1.2 x10^3uL (1.8-7.7) Lymphocytes # (Auto) 1.8 x10^3/uL (1.0-4.8) 1.9 x10^3/uL (1.0-4.8) Monocytes # (Auto) 0.3 x10^3/uL (0.0-1.1) 0.4 x10^3/uL (0.0-1.1) Eosinophils # (Auto) 0.0 x10^3/uL (0.0-0.7) 0.0 x10^3/uL (0.0-0.7) Basophils # (Auto) 0.0 x10^3/uL (0.0-0.2) 0.1 x10^3/uL (0.0-0.2) Sodium Level 141 mmol/L (136-145) 142 mmol/L (136-145) Potassium Level 3.3 mmol/L (3.5-5.1) 3.6 mmol/L (3.5-5.1) Chloride Level 110 mmol/L (98-107) 109 mmol/L (98-107) Carbon Dioxide Level 22 mmol/L (21-32) 22 mmol/L (21-32) Anion Gap 9 (6-14) 11 (6-14) Blood Urea Nitrogen 5 mg/dL (7-20) 4 mg/dL (7-20) Creatinine 0.4 mg/dL (0.6-1.0) 0.4 mg/dL (0.6-1.0) Estimated GFR (Cockcroft-Gault) 208.9 208.9 BUN/Creatinine Ratio 13 (6-20) 10 (6-20) Glucose Level 121 mg/dL (70-99) 125 mg/dL (70-99) Calcium Level 7.8 mg/dL (8.5-10.1) 7.9 mg/dL (8.5-10.1) Total Bilirubin 2.4 mg/dL (0.2-1.0) 2.6 mg/dL (0.2-1.0) Aspartate Amino Transf (AST/SGOT) 144 U/L (15-37) 191 U/L (15-37) Alanine Aminotransferase (ALT/SGPT) 75 U/L (14-59) 80 U/L (14-59) Alkaline Phosphatase 104 U/L (46-116) 102 U/L (46-116) Total Protein 4.9 g/dL (6.4-8.2) 5.0 g/dL (6.4-8.2) Albumin 1.5 g/dL (3.4-5.0) 1.5 g/dL (3.4-5.0) Albumin/Globulin Ratio 0.4 (1.0-1.7) 0.4 (1.0-1.7) Laboratory Tests Test 11/13/18 05:40 White Blood Count 3.5 x10^3/uL (4.0-11.0) Red Blood Count 2.96 x10^6/uL (3.50-5.40) Hemoglobin 8.8 g/dL (12.0-15.5) Hematocrit 27.3 % (36.0-47.0) Mean Corpuscular Volume 92 fL (79-100) Mean Corpuscular Hemoglobin 30 pg (25-35) Mean Corpuscular Hemoglobin Concent 32 g/dL (31-37) Red Cell Distribution Width 17.1 % (11.5-14.5) Platelet Count 248 x10^3/uL (140-400) Neutrophils (%) (Auto) 33 % (31-73) Lymphocytes (%) (Auto) 54 % (24-48) Monocytes (%) (Auto) 11 % (0-9) Eosinophils (%) (Auto) 1 % (0-3) Basophils (%) (Auto) 2 % (0-3) Neutrophils # (Auto) 1.2 x10^3uL (1.8-7.7) Lymphocytes # (Auto) 1.9 x10^3/uL (1.0-4.8) Monocytes # (Auto) 0.4 x10^3/uL (0.0-1.1) Eosinophils # (Auto) 0.0 x10^3/uL (0.0-0.7) Basophils # (Auto) 0.1 x10^3/uL (0.0-0.2) Sodium Level 142 mmol/L (136-145) Potassium Level 3.6 mmol/L (3.5-5.1) Chloride Level 109 mmol/L (98-107) Carbon Dioxide Level 22 mmol/L (21-32) Anion Gap 11 (6-14) Blood Urea Nitrogen 4 mg/dL (7-20) Creatinine 0.4 mg/dL (0.6-1.0) Estimated GFR (Cockcroft-Gault) 208.9 BUN/Creatinine Ratio 10 (6-20) Glucose Level 125 mg/dL (70-99) Calcium Level 7.9 mg/dL (8.5-10.1) Total Bilirubin 2.6 mg/dL (0.2-1.0) Aspartate Amino Transf (AST/SGOT) 191 U/L (15-37) Alanine Aminotransferase (ALT/SGPT) 80 U/L (14-59) Alkaline Phosphatase 102 U/L (46-116) Total Protein 5.0 g/dL (6.4-8.2) Albumin 1.5 g/dL (3.4-5.0) Albumin/Globulin Ratio 0.4 (1.0-1.7) Microbiology 11/06/18 Urine Culture - Final, Complete 11/06/18 Urine Culture Result 1 ([facility]) - Final, Complete 11/06/18 Antimicrobic Susceptibility - Final, Complete Medications Current Medications Aspirin (Children'S Aspirin) 324 mg 1X ONCE PO Last administered on 11/06/18at 10:44; Start 11/06/18 at 09:15; Stop 11/06/18 at 09:18; Status DC Morphine Sulfate (Morphine Sulfate) 4 mg PRN Q15MIN PRN IV/SQ PAIN GREATER THAN 3/10 Last administered on 11/06/18at 13:14; Start 11/06/18 at 09:15; Stop at 09:14; Status DC Ondansetron HCl (Zofran) 4 mg 1X ONCE IV Last administered on 11/06/18at 10:44 ; Start 11/06/18 at 09:15; Stop 3/18/19 at 09:18; Status DC Iohexol (Omnipaque 350 Mg/ml) 100 ml 1X ONCE IV Last administered on 22:00; Start 11/06/18 at 11:30; Stop 11/06/18 at 11:33; Status DC Info (CONTRAST GIVEN -- Rx MONITORING) 1 each PRN DAILY PRN MC SEE COMMENTS; Start 11/06/18 at 11:45; Stop 11/08/18 at 11:44; Status DC Levofloxacin/ Dextrose 100 ml @ 100 mls/hr 1X ONCE IV Last administered on 15:30; Start 11/06/18 at 13:15; Stop 11/06/18 at 14:14; Status DC Ondansetron HCl (Zofran) 4 mg PRN Q4HRS PRN IV NAUSEA/VOMITING Last administered on 11/13/18 08:29; Start 11/06/18 at 13:30 Zolpidem Tartrate (Ambien) 5 mg PRN QHS PRN PO INSOMNIA Last administered on 21:36; Start 11/06/18 at 13:30 Acetaminophen (Tylenol) 650 mg PRN Q4HRS PRN PO TEMP OVER 100.4F OR MILD PAIN Last administered on 11/06/18 17:10; Start 11/06/18 at 13:30 Al Hydroxide/Mg Hydroxide (Mylanta Plus Xs) 30 ml PRN DAILY PRN PO HEARTBURN / GAS; Start 11/06/18 at 13:30 Clonidine HCl (Catapres) 0.1 mg PRN Q6HRS PRN PO SBP>160 OR DBP>90 Last administered on 11/12/18 19:39; Start 11/06/18 at 13:30 Diphenhydramine HCl (Benadryl) 25 mg PRN Q4HRS PRN IVP ITCHING; Start 11/06/18 at 13:30 Docusate Sodium (Colace) 100 mg PRN BID PRN PO HARD STOOLS Last administered on 11/13/18 08:06; Start 11/06/18 at 13:30 Albuterol Sulfate (Ventolin Neb Soln) 2.5 mg PRN Q4HRS PRN NEB SHORTNESS OF BREATH Last administered on 11/12/18 08:08; Start 11/06/18 at 13:30 Guaifenesin (Robitussin) 200 mg PRN Q4HRS PRN PO COUGH Last administered on 10:58; Start 11/06/18 at 13:30 Lorazepam (Ativan) 0.5 mg PRN Q4HRS PRN PO ANXIETY / AGITATION; Start 11/06/18 at 13:30 Carvedilol (Coreg) 3.125 mg BIDWMEALS PO Last administered on 11/13/18 08:06; Start 11/06/18 at 17:00 Folic Acid (Folic Acid) 1 mg DAILY PO Last administered on 11/13/18 08:06; Start 11/06/18 at 15:00 Losartan Potassium (Cozaar) 100 mg DAILY PO Last administered on 11/13/18 08: 07; Start 11/06/18 at 15:00 Lurasidone HCl (Latuda) 40 mg DAILY PO Last administered on 11/13/18 08:08; Start 11/06/18 at 15:00 Ergocalciferol (Vitamin D2) 50,000 unit WEEKLY PO Last administered on 08:07; Start 11/06/18 at 15:00 Magnesium Oxide (Magnesium Oxide) 200 mg DAILY PO Last administered on 08:07; Start 11/06/18 at 15:00 Rivaroxaban (Xarelto) 20 mg DAILYWSUP PO ; Start 11/06/18 at 17:00; Stop at 17:00; Status DC Sucralfate (Carafate) 1 gm QIDACHS PO Last administered on 11/13/18 10:58; Start 11/06/18 at 16:30 Pantoprazole Sodium (Protonix) 40 mg BIDAC PO Last administered on 11/13/18 08 :08; Start 11/06/18 at 16:30 Info (Anti-Coagulation Monitoring By Pharmacy) 1 each PRN DAILY PRN MC SEE COMMENTS Last administered on 11/07/18 10:59; Start 11/06/18 at 14:15 Potassium Chloride (KCl Oral Soln) 20 meq 1X ONCE PEG Last administered on 17:09; Start 11/06/18 at 15:00; Stop 11/06/18 at 15:01; Status DC Heparin Sodium/ Dextrose 500 ml @ 0 mls/hr CONT PRN IV SEE I/O RECORD; Start at 16:30; Status UNV Heparin Sodium (Porcine) (Heparin Sodium) 6,600 unit 1X ONCE IV Last administered on 11/06/18at 17:20; Start 11/06/18 at 16:30; Stop 11/07/18 at 09:48 ; Status DC Heparin Sodium/ Dextrose 500 ml @ 0 mls/hr CONT PRN IV SEE I/O RECORD Last administered on 11/06/18at 17:32; Start 11/06/18 at 16:30; Stop 11/07/18 at 09:48 ; Status DC Heparin Sodium (Porcine) (Heparin Sodium) 2,500 unit PRN Q6HRS PRN IV FOR UFH LEVEL LESS THAN 0.2; Start 11/06/18 at 16:30; Stop 11/07/18 at 09:48; Status DC Heparin Sodium (Porcine) (Heparin Sodium) 1,200 unit PRN Q6HRS PRN IV FOR UFH LEVEL 0.2 - 0.29; Start 11/06/18 at 16:30; Stop 11/07/18 at 09:48; Status DC Morphine Sulfate (Morphine Sulfate) 2 mg Q3HRS PRN IV PAIN Last administered on 11/13/18at 08:30; Start 11/06/18 at 19:30 Iohexol (Omnipaque 350 Mg/ml) 100 ml STK-MED ONCE .ROUTE ; Start 11/07/18 at 02: 38; Stop 11/07/18 at 02:39; Status DC Rivaroxaban (Xarelto) 20 mg DAILYWSUP PO Last administered on 11/12/18at 16:23; Start 11/07/18 at 10:00 Bisacodyl (Dulcolax Tab) 5 mg 1X ONCE PO Last administered on 11/07/18at 13:40 ; Start 11/07/18 at 14:00; Stop 11/07/18 at 14:01; Status DC Polyethylene Glycol (miraLAX PACKET) 17 gm DAILY PO Last administered on at 09:10; Start 11/07/18 at 14:00 Midazolam HCl (Versed) 2 mg PRN 1X PRN IV PRIOR TO PROCEDURE; Start 11/08/18 at 09:30; Stop 11/09/18 at 09:29; Status DC Ringer's Solution 1,000 ml @ 125 mls/hr Q8H IV Last administered on 11/08/18at 09:28; Start 11/08/18 at 09:24; Stop 11/08/18 at 21:23; Status DC Lidocaine HCl (Xylocaine-Mpf 1% 2ml Vial) 2 ml 1X PRN PRN ID IV START; Start at 09:30; Stop 11/09/18 at 09:29; Status DC Barium Sulfate (Liquid E-Z Paque) 711 ml 1X ONCE PO Last administered on at 10:15; Start 11/08/18 at 10:15; Stop 11/08/18 at 10:17; Status DC Ciprofloxacin (Cipro) 500 mg BID PO Last administered on 11/10/18at 08:32; Start 11/08/18 at 15:00; Stop 11/10/18 at 14:17; Status DC Iohexol (Omnipaque 300 Mg/ml) 70 ml 1X ONCE IV Last administered on 11/08/18at 08:36; Start 11/08/18 at 17:15; Stop 11/08/18 at 17:16; Status DC Info (CONTRAST GIVEN -- Rx MONITORING) 1 each PRN DAILY PRN MC SEE COMMENTS; Start 11/08/18 at 17:15; Stop 11/10/18 at 17:14; Status DC Lactobacillus Rhamnosus (Culturelle) 1 cap BID PO Last administered on at 08:06; Start 11/09/18 at 09:00 Potassium Chloride (Klor-Con) 40 meq 1X ONCE PO Last administered on at 18:15; Start 11/09/18 at 19:00; Stop 11/09/18 at 19:01; Status DC Potassium Chloride (Klor-Con) 40 meq 1X ONCE PO Last administered on at 15:02; Start 11/10/18 at 15:00; Stop 11/10/18 at 15:01; Status DC Meropenem 500 mg/ Sodium Chloride 50 ml @ 100 mls/hr Q8HRS IV Last administered on 11/13/18at 05:38; Start 11/10/18 at 15:00 Potassium Chloride (Klor-Con) 40 meq 1X ONCE PO Last administered on at 11:32; Start 11/12/18 at 11:00; Stop 11/12/18 at 11:01; Status DC Acetaminophen/ Hydrocodone Bitart (Lortab 5/325) 1 tab PRN Q4HRS PRN PO MODERATE PAIN, SEVERE PAIN Last administered on 11/12/18at 15:00; Start 11/12/18 at 11:00 Magnesium Hydroxide (Milk Of Magnesia) 2,400 mg PRN DAILY PRN PO CONSTIPATION Last administered on 11/13/18at 08:17; Start 11/12/18 at 11:00 Bisacodyl (Dulcolax Supp) 10 mg PRN DAILY PRN SC CONSTIPATION Last administered on 11/12/18at 13:07; Start 11/12/18 at 11:00 Active Scripts Active Cozaar (Losartan Potassium) 50 Mg Tablet 100 Mg PO DAILY 30 Days Carafate (Sucralfate) 1 Gm Tablet 1 Gm PO QIDACHS [Pantoprazole] 40 MG Tablet.dr 40 Mg PO BIDAC Reported Carvedilol 3.125 Mg Tablet 3.125 Mg PO BIDWMEALS Xarelto (Rivaroxaban) 20 Mg Tablet 20 Mg PO DAILY Latuda (Lurasidone Hcl) 40 Mg Tablet 40 Mg PO DAILY Vitamin D3 (Cholecalciferol (Vitamin D3)) 50,000 Unit Capsule 50,000 Unit PO WEEKLY Folic Acid 1 Mg Tablet 1 Mg PO DAILY Magnesium Oxide 400 Mg Tablet 250 Mg PO DAILY Vitals/I & O Vital Sign - Last 24 Hours 11/12/18 11/12/18 11/12/18 11/12/18 15:00 15:00 16:00 16:18 Temp 98.1 98.1 Pulse 105 Resp 20 18 20 20 B/P (MAP) 156/104 (121) Pulse Ox 95 O2 Delivery Room Air 11/12/18 11/12/18 11/12/18 11/12/18 16:22 16:48 19:11 19:39 Temp 99.0 99.0 Pulse 106 103 Resp 20 16 B/P (MAP) 156/104 165/114 (131) 165/114 Pulse Ox 95 O2 Delivery Room Air 11/12/18 11/12/18 11/12/18 11/13/18 19:43 19:53 22:46 03:19 Temp 98.1 97.9 98.1 97.9 Pulse 82 84 Resp 16 16 16 B/P (MAP) 104/74 (84) 131/80 (97) Pulse Ox 95 96 97 O2 Delivery Room Air Room Air Room Air Room Air 11/13/18 11/13/18 11/13/18 11/13/18 03:41 07:33 08:00 08:06 Temp 97.5 97.5 Pulse 89 89 Resp 16 18 B/P (MAP) 134/86 (102) 134/86 Pulse Ox 97 O2 Delivery Room Air Room Air Room Air 11/13/18 11/13/18 11/13/18 08:07 08:30 09:14 Pulse 89 B/P (MAP) 134/86 O2 Delivery Room Air Room Air Intake and Output 11/12/18 11/12/18 11/13/18 15:00 23:00 07:00 Intake Total 180 ml 630 ml 50 ml Output Total 600 ml 0 ml Balance 180 ml 30 ml 50 ml Nutrition Consultation Dietary Evaluation: Recommendations by RD: Protein supplementation Comments: REC cardiac/ADA diet per pmhx, will adjust diet order REC Glucerna TID for protein intake while pt's appetite remains poor, dietary notified Expected Outcomes/Goals: PO intake to meet >75% est needs Interpretation of weight loss: >5% in 1 month Malnutrition Findings: Food and Nutrition Intake (Mod: <75% est energy req 7days Weight Status: Obese AUGUSTO DEVRIES III DO Nov 13, 2018 11:11
[2018-11-13 11:16] VITALS: BP 147/102
[2018-11-13] MEDS: cloNIDine HCL 0.1 MG TABLET PO PRN (11:38)
--- NOTE | 2018-11-13 12:31 | NUR ---
SS following for discharge planning. PT/OT recommended acute rehabilitation at discharge. SS met with pt in room to discuss acute rehabilitation. Pt agreeable to acute rehabilitation but wanted to discuss with spouse about facility choice. Pt reported that her spouse would be at the hospital by 1330 and requested that SS return to room at 1330 to meet with her and spouse. Pt's RN notified.
--- NOTE | 2018-11-13 13:48 | NUR ---
SS following up with discharge planning. SS met with pt and spouse in room to discuss acute rehabilitation. Pt's spouse reporting that the acute rehabilitations are too far and discussed possibility for care home unit. SS stated that referral could be sent to care home unit. Options discussed. Pt's spouse reported that he wanted to speak with a doctor in the room prior to making any further decisions. SS contacted Dr. Lim and notified. Dr. Lim reported that he would meet with pt and spouse tomorrow. Pt's RN notified. SS will follow up with pt and spouse tomorrow to discuss rehabilitation.
[2018-11-13 14:59] VITALS: BP 159/103
--- NOTE | 2018-11-13 15:02 | PDOC ---
Subjective: Subjective: Ate "a bit of burger" and has been drinking broth. No vomiting. Says stooled yesterday. Chest pain ongoing. Says she got up w/ PT. Objective: Objective: Per RN - c/o nausea, no vomiting, refused constipation meds, DC soon? Says wants to talk to Dr. Lim but he's not coming back til tomorrow. Vital Signs: Vital Signs Date Time Temp Pulse Resp B/P (MAP) Pulse Ox O2 Delivery O2 Flow Rate FiO2 11/13/18 13:29 Room Air 11/13/18 11:38 90 147/102 11/13/18 11:16 98.1 18 96 98.1 Labs: Laboratory Tests Test 11/13/18 05:40 White Blood Count 3.5 x10^3/uL Red Blood Count 2.96 x10^6/uL Hemoglobin 8.8 g/dL Hematocrit 27.3 % Mean Corpuscular Volume 92 fL Mean Corpuscular Hemoglobin 30 pg Mean Corpuscular Hemoglobin Concent 32 g/dL Red Cell Distribution Width 17.1 % Platelet Count 248 x10^3/uL Neutrophils (%) (Auto) 33 % Lymphocytes (%) (Auto) 54 % Monocytes (%) (Auto) 11 % Eosinophils (%) (Auto) 1 % Basophils (%) (Auto) 2 % Neutrophils # (Auto) 1.2 x10^3uL Lymphocytes # (Auto) 1.9 x10^3/uL Monocytes # (Auto) 0.4 x10^3/uL Eosinophils # (Auto) 0.0 x10^3/uL Basophils # (Auto) 0.1 x10^3/uL Sodium Level 142 mmol/L Potassium Level 3.6 mmol/L Chloride Level 109 mmol/L Carbon Dioxide Level 22 mmol/L Anion Gap 11 Blood Urea Nitrogen 4 mg/dL Creatinine 0.4 mg/dL Estimated GFR (Cockcroft-Gault) 208.9 BUN/Creatinine Ratio 10 Glucose Level 125 mg/dL Calcium Level 7.9 mg/dL Total Bilirubin 2.6 mg/dL Aspartate Amino Transf (AST/SGOT) 191 U/L Alanine Aminotransferase (ALT/SGPT) 80 U/L Alkaline Phosphatase 102 U/L Total Protein 5.0 g/dL Albumin 1.5 g/dL Albumin/Globulin Ratio 0.4 PE: GEN: NAD LUNGS: CTAB HEART: RRR ABD: NABS, S/ND/NT NEURO/PSYCH: A & O 3, flat A/P: Nausea/anorexia - etiology unclear w/ extensive workup unrevealing GERD, s/p Sabi-[id number] Elevated LFTs (better - SHAHANA and ASMA neg), hepatic steatosis, s/p spring Anemia Chronic pain -- Other per Dr. Watt. SHAMIR DAMON Nov 13, 2018 15:02
[2018-11-13] MEDS: RIVAROXABAN 10 MG TABLET. PO SCH (16:29)
[2018-11-13 18:00] LABS: FREE T4 0.88 ng/dL (0.76-1.46); THYROID STIM HORMONE (TSH) 3.176 uIU/mL (0.358-3.74)
[2018-11-13 19:00] VITALS: BP 115/89
[2018-11-13 23:00] VITALS: BP 113/80
[2018-11-14] VITALS (7 sets, daily range): BP systolic 119–168; BP diastolic 84–113
[2018-11-14] MEDS: ONDANSETRON PF 4 MG/2 ML VIAL. IV PRN ×3 (03:18→16:52)
[2018-11-14] MEDS: MORPHINE SULFATE 2 MG/ML VIAL. IV PRN ×2 (03:18→08:23)
[2018-11-14] MEDS: MEROPENEM 500 MG in IV NORMAL SALINE 50ML 50 ML IV SCH ×3 (05:56→20:48)
[2018-11-14 06:25] LABS: BASO % 0 % (0-3); EOS % 0 % (0-3); HEMATOCRIT 26.9 % (36.0-47.0); HEMOGLOBIN 8.8 g/dL (12.0-15.5); LYMPH # 2.2 x10^3/uL (1.0-4.8); LYMPH % 60 % (24-48); MEAN CORPUSCULAR HEMOGLOBIN 30 pg (25-35); MEAN CORPUSCULAR HGB CONC 33 g/dL (31-37); MEAN CORPUSCULAR VOLUME 92 fL (79-100); MONO # 0.3 x10^3/uL (0.0-1.1); MONO % 9 % (0-9); NEUT # 1.1 x10^3uL (1.8-7.7); NEUT % 31 % (31-73); PLATELET COUNT 261 x10^3/uL (140-400); RED BLOOD COUNT 2.91 x10^6/uL (3.50-5.40); RED CELL DISTRIBUTION WIDTH 17.5 % (11.5-14.5); WHITE BLOOD COUNT 3.6 x10^3/uL (4.0-11.0)
[2018-11-14 06:54] LABS: ALBUMIN 1.5 g/dL (3.4-5.0); ALBUMIN/GLOBULIN RATIO 0.4 (1.0-1.7); CALCIUM 7.9 mg/dL (8.5-10.1); CREATININE 0.4 mg/dL (0.6-1.0); GFR 208.9; POTASSIUM 3.5 mmol/L (3.5-5.1); TOTAL BILIRUBIN 2.6 mg/dL (0.2-1.0)
[2018-11-14] MEDS: PANTOPRAZOLE 40 MG TABLET.DR. PO SCH ×2 (08:19→16:49)
[2018-11-14] MEDS: LURASIDONE 40 MG TABLET. PO SCH (08:19)
[2018-11-14] MEDS: FOLIC ACID 1 MG TABLET. PO SCH (08:20)
[2018-11-14] MEDS: SUCRALFATE 1 GM TABLET. PO SCH ×4 (08:20→20:48)
[2018-11-14] MEDS: LACTOBACILLUS RHAMNOSUS GG 1 CAPSULE. PO SCH ×2 (08:20→20:48)
[2018-11-14] MEDS: CARVEDILOL 3.125 MG TABLET. PO SCH ×2 (08:20→16:49)
[2018-11-14] MEDS: LOSARTAN POTASSIUM 50 MG TABLET. PO SCH (08:20)
[2018-11-14] MEDS: MAGNESIUM OXIDE 400 MG TABLET PO SCH (08:21)
[2018-11-14] MEDS: POLYETHYLENE GLYCOL 3350 17 GM PACKET. PO SCH (08:21)
--- NOTE | 2018-11-14 09:25 | PDOC ---
PULMONARY PROGRESS NOTES Subjective STILL NOT FEELING WELL NOT MORE SOA NO PLEURITIC PAIN Vitals Vital Signs Date Time Temp Pulse Resp B/P (MAP) Pulse Ox O2 Delivery O2 Flow Rate FiO2 11/14/18 08:23 16 Room Air 11/14/18 08:20 91 144/98 11/14/18 07:00 97.9 97 97.9 General: Alert, Lethargic Lungs: Clear Cardiovascular: S1, S2 Abdomen: Soft, Other (obese) Neuro Exam: Alert Extremities: Other (1+edema) Skin: Warm Labs Laboratory Tests Test 11/13/18 05:40 11/14/18 06:10 White Blood Count 3.5 x10^3/uL (4.0-11.0) 3.6 x10^3/uL (4.0-11.0) Red Blood Count 2.96 x10^6/uL (3.50-5.40) 2.91 x10^6/uL (3.50-5.40) Hemoglobin 8.8 g/dL (12.0-15.5) 8.8 g/dL (12.0-15.5) Hematocrit 27.3 % (36.0-47.0) 26.9 % (36.0-47.0) Mean Corpuscular Volume 92 fL (79-100) 92 fL (79-100) Mean Corpuscular Hemoglobin 30 pg (25-35) 30 pg (25-35) Mean Corpuscular Hemoglobin Concent 32 g/dL (31-37) 33 g/dL (31-37) Red Cell Distribution Width 17.1 % (11.5-14.5) 17.5 % (11.5-14.5) Platelet Count 248 x10^3/uL (140-400) 261 x10^3/uL (140-400) Neutrophils (%) (Auto) 33 % (31-73) 31 % (31-73) Lymphocytes (%) (Auto) 54 % (24-48) 60 % (24-48) Monocytes (%) (Auto) 11 % (0-9) 9 % (0-9) Eosinophils (%) (Auto) 1 % (0-3) 0 % (0-3) Basophils (%) (Auto) 2 % (0-3) 0 % (0-3) Neutrophils # (Auto) 1.2 x10^3uL (1.8-7.7) 1.1 x10^3uL (1.8-7.7) Lymphocytes # (Auto) 1.9 x10^3/uL (1.0-4.8) 2.2 x10^3/uL (1.0-4.8) Monocytes # (Auto) 0.4 x10^3/uL (0.0-1.1) 0.3 x10^3/uL (0.0-1.1) Eosinophils # (Auto) 0.0 x10^3/uL (0.0-0.7) 0.0 x10^3/uL (0.0-0.7) Basophils # (Auto) 0.1 x10^3/uL (0.0-0.2) 0.0 x10^3/uL (0.0-0.2) Sodium Level 142 mmol/L (136-145) 142 mmol/L (136-145) Potassium Level 3.6 mmol/L (3.5-5.1) 3.5 mmol/L (3.5-5.1) Chloride Level 109 mmol/L (98-107) 110 mmol/L (98-107) Carbon Dioxide Level 22 mmol/L (21-32) 22 mmol/L (21-32) Anion Gap 11 (6-14) 10 (6-14) Blood Urea Nitrogen 4 mg/dL (7-20) 4 mg/dL (7-20) Creatinine 0.4 mg/dL (0.6-1.0) 0.4 mg/dL (0.6-1.0) Estimated GFR (Cockcroft-Gault) 208.9 208.9 BUN/Creatinine Ratio 10 (6-20) 10 (6-20) Glucose Level 125 mg/dL (70-99) 128 mg/dL (70-99) Calcium Level 7.9 mg/dL (8.5-10.1) 7.9 mg/dL (8.5-10.1) Total Bilirubin 2.6 mg/dL (0.2-1.0) 2.6 mg/dL (0.2-1.0) Aspartate Amino Transf (AST/SGOT) 191 U/L (15-37) 167 U/L (15-37) Alanine Aminotransferase (ALT/SGPT) 80 U/L (14-59) 74 U/L (14-59) Alkaline Phosphatase 102 U/L (46-116) 98 U/L (46-116) Total Protein 5.0 g/dL (6.4-8.2) 5.0 g/dL (6.4-8.2) Albumin 1.5 g/dL (3.4-5.0) 1.5 g/dL (3.4-5.0) Albumin/Globulin Ratio 0.4 (1.0-1.7) 0.4 (1.0-1.7) Thyroid Stimulating Hormone (TSH) 3.176 uIU/mL (0.358-3.74) Free Thyroxine 0.88 ng/dL (0.76-1.46) Laboratory Tests Test 11/14/18 06:10 White Blood Count 3.6 x10^3/uL (4.0-11.0) Red Blood Count 2.91 x10^6/uL (3.50-5.40) Hemoglobin 8.8 g/dL (12.0-15.5) Hematocrit 26.9 % (36.0-47.0) Mean Corpuscular Volume 92 fL (79-100) Mean Corpuscular Hemoglobin 30 pg (25-35) Mean Corpuscular Hemoglobin Concent 33 g/dL (31-37) Red Cell Distribution Width 17.5 % (11.5-14.5) Platelet Count 261 x10^3/uL (140-400) Neutrophils (%) (Auto) 31 % (31-73) Lymphocytes (%) (Auto) 60 % (24-48) Monocytes (%) (Auto) 9 % (0-9) Eosinophils (%) (Auto) 0 % (0-3) Basophils (%) (Auto) 0 % (0-3) Neutrophils # (Auto) 1.1 x10^3uL (1.8-7.7) Lymphocytes # (Auto) 2.2 x10^3/uL (1.0-4.8) Monocytes # (Auto) 0.3 x10^3/uL (0.0-1.1) Eosinophils # (Auto) 0.0 x10^3/uL (0.0-0.7) Basophils # (Auto) 0.0 x10^3/uL (0.0-0.2) Sodium Level 142 mmol/L (136-145) Potassium Level 3.5 mmol/L (3.5-5.1) Chloride Level 110 mmol/L (98-107) Carbon Dioxide Level 22 mmol/L (21-32) Anion Gap 10 (6-14) Blood Urea Nitrogen 4 mg/dL (7-20) Creatinine 0.4 mg/dL (0.6-1.0) Estimated GFR (Cockcroft-Gault) 208.9 BUN/Creatinine Ratio 10 (6-20) Glucose Level 128 mg/dL (70-99) Calcium Level 7.9 mg/dL (8.5-10.1) Total Bilirubin 2.6 mg/dL (0.2-1.0) Aspartate Amino Transf (AST/SGOT) 167 U/L (15-37) Alanine Aminotransferase (ALT/SGPT) 74 U/L (14-59) Alkaline Phosphatase 98 U/L (46-116) Total Protein 5.0 g/dL (6.4-8.2) Albumin 1.5 g/dL (3.4-5.0) Albumin/Globulin Ratio 0.4 (1.0-1.7) Medications Active Scripts Medications Dose Route/Sig Max Daily Dose Days Date Category Cozaar (Losartan Potassium) 50 Mg Tablet 100 Mg PO DAILY 30 07/05/18 Rx Carafate (Sucralfate) 1 Gm Tablet 1 Gm PO QIDACHS 04/21/18 Rx [Pantoprazole] 40 MG Tablet.dr 40 Mg PO BIDAC 04/21/18 Rx Carvedilol 3.125 Mg Tablet 3.125 Mg PO BIDWMEALS 04/18/18 Reported Xarelto (Rivaroxaban) 20 Mg Tablet 20 Mg PO DAILY 04/18/18 Reported Latuda (Lurasidone Hcl) 40 Mg Tablet 40 Mg PO DAILY 04/18/18 Reported Vitamin D3 (Cholecalciferol (Vitamin D3)) 50,000 Unit Capsule 50,000 Unit PO WEEKLY 04/18/18 Reported Folic Acid 1 Mg Tablet 1 Mg PO DAILY 04/18/18 Reported Magnesium Oxide 400 Mg Tablet 250 Mg PO DAILY 04/18/18 Reported Impression . 1. The patient with history of pulmonary embolism and deep venous thrombosis, now comes in with chest pain, which is probably related to her anastomotic ulcer. The CT angiogram and V/Q scan have been reviewed and do not show any new blood clot. The CTA shows chronic linear clot and the V/Q scan shows mismatched defect in the left lower lobe. The venous Doppler shows nonocclusive thrombus. 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 We need to closely monitor for any anemia or bleeding while on anticoagulation. 2. No history of hypercoagulable state. 3. Morbid obesity with decreased ambulation. 4. Loss of appetite secondary to ulcer, resulting in decreased oral intake. 5. s/p EGD/ small bowel series/ healed anastomotic ulcer 6. Narcotic seeking Plan . RESP STATUS IS COMPENSATED WILL CONTINUE THE SAME XARELTO FOLLOW UP AT REGARDING THE DURATION OF ANTICOAGULATION KASI WORKMAN MD Nov 14, 2018 09:25
[2018-11-14] MEDS: guaiFENesin ORAL 200 MG/10 ML LIQUID. PO PRN (11:10)
[2018-11-14] MEDS: MAGNESIUM HYDROXIDE 2,400 MG/30 ML ORAL.SUSP. PO PRN (11:10)
--- NOTE | 2018-11-14 11:12 | PDOC ---
PROGRESS NOTES Chief Complaint Chief Complaint Transaminitis most likely secondary to steatohepatitis Chest pain acute coronary syndrome ruled out UTI: 5-10WBC, positive nitrite and LE History of pulmonary embolism last year Old thrombus noted, back on anticoagulation linear filling defects in the bilateral pulmonary arteries which could be secondary to old recanalized embolus. 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 Non adherence to PPI and carafate for ulcer treatment Inability to tolerate PO well persists History of IVC filter placement Obesity with BMI of 34 Mild bilirubinemia Hypokalemia and hyponatremia as a consequence of her poor oral intake, on replacement intractable nausea persists hypertension, suboptimal control History of Present Illness History of Present Illness Patient seen and examined at bedside. Remains sedated. She continues to complain of nausea and reduced appetite. She is also continues to complain of abdominal and chest wall pain. Discussed case with RN. Patient on Xarelto, hx of PE with IVC filter (at [facility]). AST/ALT remain elevated. GI following. Vitals Vitals Vital Signs Date Time Temp Pulse Resp B/P (MAP) Pulse Ox O2 Delivery O2 Flow Rate FiO2 11/14/18 08:53 16 Room Air 11/14/18 08:20 91 144/98 11/14/18 07:00 97.9 97 97.9 Physical Exam General: Alert, Oriented X3, Cooperative, mild distress (nausea) Heart: Regular rate (SR), Normal S1, Normal S2, No murmurs, Other (2/6 systolic murmur to LLS border) Lungs: Clear Abdomen: Normal bowel sounds, Soft, No tenderness Extremities: No clubbing, No cyanosis, No edema Skin: No rashes, No significant lesion Labs LABS Laboratory Tests Test 11/14/18 06:10 White Blood Count 3.6 x10^3/uL (4.0-11.0) Red Blood Count 2.91 x10^6/uL (3.50-5.40) Hemoglobin 8.8 g/dL (12.0-15.5) Hematocrit 26.9 % (36.0-47.0) Mean Corpuscular Volume 92 fL (79-100) Mean Corpuscular Hemoglobin 30 pg (25-35) Mean Corpuscular Hemoglobin Concent 33 g/dL (31-37) Red Cell Distribution Width 17.5 % (11.5-14.5) Platelet Count 261 x10^3/uL (140-400) Neutrophils (%) (Auto) 31 % (31-73) Lymphocytes (%) (Auto) 60 % (24-48) Monocytes (%) (Auto) 9 % (0-9) Eosinophils (%) (Auto) 0 % (0-3) Basophils (%) (Auto) 0 % (0-3) Neutrophils # (Auto) 1.1 x10^3uL (1.8-7.7) Lymphocytes # (Auto) 2.2 x10^3/uL (1.0-4.8) Monocytes # (Auto) 0.3 x10^3/uL (0.0-1.1) Eosinophils # (Auto) 0.0 x10^3/uL (0.0-0.7) Basophils # (Auto) 0.0 x10^3/uL (0.0-0.2) Sodium Level 142 mmol/L (136-145) Potassium Level 3.5 mmol/L (3.5-5.1) Chloride Level 110 mmol/L (98-107) Carbon Dioxide Level 22 mmol/L (21-32) Anion Gap 10 (6-14) Blood Urea Nitrogen 4 mg/dL (7-20) Creatinine 0.4 mg/dL (0.6-1.0) Estimated GFR (Cockcroft-Gault) 208.9 BUN/Creatinine Ratio 10 (6-20) Glucose Level 128 mg/dL (70-99) Calcium Level 7.9 mg/dL (8.5-10.1) Total Bilirubin 2.6 mg/dL (0.2-1.0) Aspartate Amino Transf (AST/SGOT) 167 U/L (15-37) Alanine Aminotransferase (ALT/SGPT) 74 U/L (14-59) Alkaline Phosphatase 98 U/L (46-116) Total Protein 5.0 g/dL (6.4-8.2) Albumin 1.5 g/dL (3.4-5.0) Albumin/Globulin Ratio 0.4 (1.0-1.7) Review of Systems Review of Systems Reports nausea Reports abdominal pain Reports chest wall pain Denies vomiting Assessment and Plan Assessmemt and Plan Problems Medical Problems: (1) Chest pain Status: Acute (2) Elevated bilirubin Status: Acute Assessment: Transaminitis most likely secondary to steatohepatitis Chest pain acute coronary syndrome ruled out UTI: 5-10WBC, positive nitrite and LE History of pulmonary embolism last year Old thrombus noted, back on anticoagulation linear filling defects in the bilateral pulmonary arteries which could be secondary to old recanalized embolus. 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 Non adherence to PPI and carafate for ulcer treatment Inability to tolerate PO well persists History of IVC filter placement Obesity with BMI of 34 Mild bilirubinemia Hypokalemia and hyponatremia as a consequence of her poor oral intake, on replacement intractable nausea persists hypertension, suboptimal control Plan: Appreciate GI input, awaiting hemochromatosis work up PT/OT Continue pain management Start ultram 50mg, reduce morphine Continue meropenem IV Review labs in the am Comment Review of Relevant I have reviewed the following items leo (where applicable) has been applied. Labs Laboratory Tests Test 11/13/18 05:40 11/14/18 06:10 White Blood Count 3.5 x10^3/uL (4.0-11.0) 3.6 x10^3/uL (4.0-11.0) Red Blood Count 2.96 x10^6/uL (3.50-5.40) 2.91 x10^6/uL (3.50-5.40) Hemoglobin 8.8 g/dL (12.0-15.5) 8.8 g/dL (12.0-15.5) Hematocrit 27.3 % (36.0-47.0) 26.9 % (36.0-47.0) Mean Corpuscular Volume 92 fL (79-100) 92 fL (79-100) Mean Corpuscular Hemoglobin 30 pg (25-35) 30 pg (25-35) Mean Corpuscular Hemoglobin Concent 32 g/dL (31-37) 33 g/dL (31-37) Red Cell Distribution Width 17.1 % (11.5-14.5) 17.5 % (11.5-14.5) Platelet Count 248 x10^3/uL (140-400) 261 x10^3/uL (140-400) Neutrophils (%) (Auto) 33 % (31-73) 31 % (31-73) Lymphocytes (%) (Auto) 54 % (24-48) 60 % (24-48) Monocytes (%) (Auto) 11 % (0-9) 9 % (0-9) Eosinophils (%) (Auto) 1 % (0-3) 0 % (0-3) Basophils (%) (Auto) 2 % (0-3) 0 % (0-3) Neutrophils # (Auto) 1.2 x10^3uL (1.8-7.7) 1.1 x10^3uL (1.8-7.7) Lymphocytes # (Auto) 1.9 x10^3/uL (1.0-4.8) 2.2 x10^3/uL (1.0-4.8) Monocytes # (Auto) 0.4 x10^3/uL (0.0-1.1) 0.3 x10^3/uL (0.0-1.1) Eosinophils # (Auto) 0.0 x10^3/uL (0.0-0.7) 0.0 x10^3/uL (0.0-0.7) Basophils # (Auto) 0.1 x10^3/uL (0.0-0.2) 0.0 x10^3/uL (0.0-0.2) Sodium Level 142 mmol/L (136-145) 142 mmol/L (136-145) Potassium Level 3.6 mmol/L (3.5-5.1) 3.5 mmol/L (3.5-5.1) Chloride Level 109 mmol/L (98-107) 110 mmol/L (98-107) Carbon Dioxide Level 22 mmol/L (21-32) 22 mmol/L (21-32) Anion Gap 11 (6-14) 10 (6-14) Blood Urea Nitrogen 4 mg/dL (7-20) 4 mg/dL (7-20) Creatinine 0.4 mg/dL (0.6-1.0) 0.4 mg/dL (0.6-1.0) Estimated GFR (Cockcroft-Gault) 208.9 208.9 BUN/Creatinine Ratio 10 (6-20) 10 (6-20) Glucose Level 125 mg/dL (70-99) 128 mg/dL (70-99) Calcium Level 7.9 mg/dL (8.5-10.1) 7.9 mg/dL (8.5-10.1) Total Bilirubin 2.6 mg/dL (0.2-1.0) 2.6 mg/dL (0.2-1.0) Aspartate Amino Transf (AST/SGOT) 191 U/L (15-37) 167 U/L (15-37) Alanine Aminotransferase (ALT/SGPT) 80 U/L (14-59) 74 U/L (14-59) Alkaline Phosphatase 102 U/L (46-116) 98 U/L (46-116) Total Protein 5.0 g/dL (6.4-8.2) 5.0 g/dL (6.4-8.2) Albumin 1.5 g/dL (3.4-5.0) 1.5 g/dL (3.4-5.0) Albumin/Globulin Ratio 0.4 (1.0-1.7) 0.4 (1.0-1.7) Thyroid Stimulating Hormone (TSH) 3.176 uIU/mL (0.358-3.74) Free Thyroxine 0.88 ng/dL (0.76-1.46) Laboratory Tests Test 11/14/18 06:10 White Blood Count 3.6 x10^3/uL (4.0-11.0) Red Blood Count 2.91 x10^6/uL (3.50-5.40) Hemoglobin 8.8 g/dL (12.0-15.5) Hematocrit 26.9 % (36.0-47.0) Mean Corpuscular Volume 92 fL (79-100) Mean Corpuscular Hemoglobin 30 pg (25-35) Mean Corpuscular Hemoglobin Concent 33 g/dL (31-37) Red Cell Distribution Width 17.5 % (11.5-14.5) Platelet Count 261 x10^3/uL (140-400) Neutrophils (%) (Auto) 31 % (31-73) Lymphocytes (%) (Auto) 60 % (24-48) Monocytes (%) (Auto) 9 % (0-9) Eosinophils (%) (Auto) 0 % (0-3) Basophils (%) (Auto) 0 % (0-3) Neutrophils # (Auto) 1.1 x10^3uL (1.8-7.7) Lymphocytes # (Auto) 2.2 x10^3/uL (1.0-4.8) Monocytes # (Auto) 0.3 x10^3/uL (0.0-1.1) Eosinophils # (Auto) 0.0 x10^3/uL (0.0-0.7) Basophils # (Auto) 0.0 x10^3/uL (0.0-0.2) Sodium Level 142 mmol/L (136-145) Potassium Level 3.5 mmol/L (3.5-5.1) Chloride Level 110 mmol/L (98-107) Carbon Dioxide Level 22 mmol/L (21-32) Anion Gap 10 (6-14) Blood Urea Nitrogen 4 mg/dL (7-20) Creatinine 0.4 mg/dL (0.6-1.0) Estimated GFR (Cockcroft-Gault) 208.9 BUN/Creatinine Ratio 10 (6-20) Glucose Level 128 mg/dL (70-99) Calcium Level 7.9 mg/dL (8.5-10.1) Total Bilirubin 2.6 mg/dL (0.2-1.0) Aspartate Amino Transf (AST/SGOT) 167 U/L (15-37) Alanine Aminotransferase (ALT/SGPT) 74 U/L (14-59) Alkaline Phosphatase 98 U/L (46-116) Total Protein 5.0 g/dL (6.4-8.2) Albumin 1.5 g/dL (3.4-5.0) Albumin/Globulin Ratio 0.4 (1.0-1.7) Microbiology 11/06/18 Urine Culture - Final, Complete 11/06/18 Urine Culture Result 1 ([facility]) - Final, Complete 11/06/18 Antimicrobic Susceptibility - Final, Complete Medications Current Medications Aspirin (Children'S Aspirin) 324 mg 1X ONCE PO Last administered on 11/06/18at 10:44; Start 11/06/18 at 09:15; Stop 11/06/18 at 09:18; Status DC Morphine Sulfate (Morphine Sulfate) 4 mg PRN Q15MIN PRN IV/SQ PAIN GREATER THAN 3/10 Last administered on 11/06/18at 13:14; Start 11/06/18 at 09:15; Stop at 09:14; Status DC Ondansetron HCl (Zofran) 4 mg 1X ONCE IV Last administered on 11/06/18 10:44 ; Start 11/06/18 at 09:15; Stop 11/06/18 at 09:18; Status DC Iohexol (Omnipaque 350 Mg/ml) 100 ml 1X ONCE IV Last administered on 22:00; Start 11/06/18 at 11:30; Stop 11/06/18 at 11:33; Status DC Info (CONTRAST GIVEN -- Rx MONITORING) 1 each PRN DAILY PRN MC SEE COMMENTS; Start 11/06/18 at 11:45; Stop 11/08/18 at 11:44; Status DC Levofloxacin/ Dextrose 100 ml @ 100 mls/hr 1X ONCE IV Last administered on 15:30; Start 11/06/18 at 13:15; Stop 11/06/18 at 14:14; Status DC Ondansetron HCl (Zofran) 4 mg PRN Q4HRS PRN IV NAUSEA/VOMITING Last administered on 11/14/18 08:23; Start 11/06/18 at 13:30 Zolpidem Tartrate (Ambien) 5 mg PRN QHS PRN PO INSOMNIA Last administered on 21:36; Start 11/06/18 at 13:30 Acetaminophen (Tylenol) 650 mg PRN Q4HRS PRN PO TEMP OVER 100.4F OR MILD PAIN Last administered on 11/06/18 17:10; Start 11/06/18 at 13:30 Al Hydroxide/Mg Hydroxide (Mylanta Plus Xs) 30 ml PRN DAILY PRN PO HEARTBURN / GAS; Start 11/06/18 at 13:30 Clonidine HCl (Catapres) 0.1 mg PRN Q6HRS PRN PO SBP>160 OR DBP>90 Last administered on 11/13/18 11:38; Start 11/06/18 at 13:30 Diphenhydramine HCl (Benadryl) 25 mg PRN Q4HRS PRN IVP ITCHING; Start 11/06/18 at 13:30 Docusate Sodium (Colace) 100 mg PRN BID PRN PO HARD STOOLS Last administered on 11/13/18 08:06; Start 11/06/18 at 13:30 Albuterol Sulfate (Ventolin Neb Soln) 2.5 mg PRN Q4HRS PRN NEB SHORTNESS OF BREATH Last administered on 11/12/18 08:08; Start 11/06/18 at 13:30 Guaifenesin (Robitussin) 200 mg PRN Q4HRS PRN PO COUGH Last administered on 19:29; Start 11/06/18 at 13:30 Lorazepam (Ativan) 0.5 mg PRN Q4HRS PRN PO ANXIETY / AGITATION; Start 11/06/18 at 13:30 Carvedilol (Coreg) 3.125 mg BIDWMEALS PO Last administered on 11/14/18 08:20; Start 11/06/18 at 17:00 Folic Acid (Folic Acid) 1 mg DAILY PO Last administered on 11/14/18 08:20; Start 11/06/18 at 15:00 Losartan Potassium (Cozaar) 100 mg DAILY PO Last administered on 11/14/18 08: 20; Start 11/06/18 at 15:00 Lurasidone HCl (Latuda) 40 mg DAILY PO Last administered on 11/14/18 08:19; Start 11/06/18 at 15:00 Ergocalciferol (Vitamin D2) 50,000 unit WEEKLY PO Last administered on 08:07; Start 11/06/18 at 15:00 Magnesium Oxide (Magnesium Oxide) 200 mg DAILY PO Last administered on 08:21; Start 11/06/18 at 15:00 Rivaroxaban (Xarelto) 20 mg DAILYWSUP PO ; Start 11/06/18 at 17:00; Stop at 17:00; Status DC Sucralfate (Carafate) 1 gm QIDACHS PO Last administered on 11/14/18 08:20; Start 11/06/18 at 16:30 Pantoprazole Sodium (Protonix) 40 mg BIDAC PO Last administered on 11/14/18 08 :19; Start 11/06/18 at 16:30 Info (Anti-Coagulation Monitoring By Pharmacy) 1 each PRN DAILY PRN MC SEE COMMENTS Last administered on 11/07/18 10:59; Start 11/06/18 at 14:15 Potassium Chloride (KCl Oral Soln) 20 meq 1X ONCE PEG Last administered on at 17:09; Start 11/06/18 at 15:00; Stop 11/06/18 at 15:01; Status DC Heparin Sodium/ Dextrose 500 ml @ 0 mls/hr CONT PRN IV SEE I/O RECORD; Start at 16:30; Status UNV Heparin Sodium (Porcine) (Heparin Sodium) 6,600 unit 1X ONCE IV Last administered on 11/06/18at 17:20; Start 11/06/18 at 16:30; Stop 11/07/18 at 09:48 ; Status DC Heparin Sodium/ Dextrose 500 ml @ 0 mls/hr CONT PRN IV SEE I/O RECORD Last administered on 11/06/18at 17:32; Start 11/06/18 at 16:30; Stop 11/07/18 at 09:48 ; Status DC Heparin Sodium (Porcine) (Heparin Sodium) 2,500 unit PRN Q6HRS PRN IV FOR UFH LEVEL LESS THAN 0.2; Start 11/06/18 at 16:30; Stop 11/07/18 at 09:48; Status DC Heparin Sodium (Porcine) (Heparin Sodium) 1,200 unit PRN Q6HRS PRN IV FOR UFH LEVEL 0.2 - 0.29; Start 11/06/18 at 16:30; Stop 11/07/18 at 09:48; Status DC Morphine Sulfate (Morphine Sulfate) 2 mg Q3HRS PRN IV PAIN Last administered on 11/14/18at 08:23; Start 11/06/18 at 19:30 Iohexol (Omnipaque 350 Mg/ml) 100 ml STK-MED ONCE .ROUTE ; Start 11/07/18 at 02: 38; Stop 11/07/18 at 02:39; Status DC Rivaroxaban (Xarelto) 20 mg DAILYWSUP PO Last administered on 11/13/18at 16:29; Start 11/07/18 at 10:00 Bisacodyl (Dulcolax Tab) 5 mg 1X ONCE PO Last administered on 11/07/18at 13:40 ; Start 11/07/18 at 14:00; Stop 11/07/18 at 14:01; Status DC Polyethylene Glycol (miraLAX PACKET) 17 gm DAILY PO Last administered on at 09:10; Start 11/07/18 at 14:00 Midazolam HCl (Versed) 2 mg PRN 1X PRN IV PRIOR TO PROCEDURE; Start 11/08/18 at 09:30; Stop 11/09/18 at 09:29; Status DC Ringer's Solution 1,000 ml @ 125 mls/hr Q8H IV Last administered on 11/08/18at 09:28; Start 11/08/18 at 09:24; Stop 11/08/18 at 21:23; Status DC Lidocaine HCl (Xylocaine-Mpf 1% 2ml Vial) 2 ml 1X PRN PRN ID IV START; Start at 09:30; Stop 11/09/18 at 09:29; Status DC Barium Sulfate (Liquid E-Z Paque) 711 ml 1X ONCE PO Last administered on at 10:15; Start 11/08/18 at 10:15; Stop 11/08/18 at 10:17; Status DC Ciprofloxacin (Cipro) 500 mg BID PO Last administered on 11/10/18at 08:32; Start 11/08/18 at 15:00; Stop 11/10/18 at 14:17; Status DC Iohexol (Omnipaque 300 Mg/ml) 70 ml 1X ONCE IV Last administered on 11/08/18at 08:36; Start 11/08/18 at 17:15; Stop 11/08/18 at 17:16; Status DC Info (CONTRAST GIVEN -- Rx MONITORING) 1 each PRN DAILY PRN MC SEE COMMENTS; Start 11/08/18 at 17:15; Stop 11/10/18 at 17:14; Status DC Lactobacillus Rhamnosus (Culturelle) 1 cap BID PO Last administered on at 08:20; Start 11/09/18 at 09:00 Potassium Chloride (Klor-Con) 40 meq 1X ONCE PO Last administered on at 18:15; Start 11/09/18 at 19:00; Stop 11/09/18 at 19:01; Status DC Potassium Chloride (Klor-Con) 40 meq 1X ONCE PO Last administered on at 15:02; Start 11/10/18 at 15:00; Stop 11/10/18 at 15:01; Status DC Meropenem 500 mg/ Sodium Chloride 50 ml @ 100 mls/hr Q8HRS IV Last administered on 11/14/18 05:56; Start 11/10/18 at 15:00 Potassium Chloride (Klor-Con) 40 meq 1X ONCE PO Last administered on at 11:32; Start 11/12/18 at 11:00; Stop 11/12/18 at 11:01; Status DC Acetaminophen/ Hydrocodone Bitart (Lortab 5/325) 1 tab PRN Q4HRS PRN PO MODERATE PAIN, SEVERE PAIN Last administered on 11/12/18 15:00; Start 11/12/18 at 11:00 Magnesium Hydroxide (Milk Of Magnesia) 2,400 mg PRN DAILY PRN PO CONSTIPATION Last administered on 11/13/18at 08:17; Start 11/12/18 at 11:00 Bisacodyl (Dulcolax Supp) 10 mg PRN DAILY PRN DC CONSTIPATION Last administered on 11/12/18at 13:07; Start 11/12/18 at 11:00 Active Scripts Active Cozaar (Losartan Potassium) 50 Mg Tablet 100 Mg PO DAILY 30 Days Carafate (Sucralfate) 1 Gm Tablet 1 Gm PO QIDACHS [Pantoprazole] 40 MG Tablet.dr 40 Mg PO BIDAC Reported Carvedilol 3.125 Mg Tablet 3.125 Mg PO BIDWMEALS Xarelto (Rivaroxaban) 20 Mg Tablet 20 Mg PO DAILY Latuda (Lurasidone Hcl) 40 Mg Tablet 40 Mg PO DAILY Vitamin D3 (Cholecalciferol (Vitamin D3)) 50,000 Unit Capsule 50,000 Unit PO WEEKLY Folic Acid 1 Mg Tablet 1 Mg PO DAILY Magnesium Oxide 400 Mg Tablet 250 Mg PO DAILY Vitals/I & O Vital Sign - Last 24 Hours 11/13/18 11/13/18 11/13/18 11/13/18 11:16 11:38 12:30 14:59 Temp 98.1 97.7 98.1 97.7 Pulse 90 90 101 Resp 18 18 B/P (MAP) 147/102 (117) 147/102 159/103 (121) Pulse Ox 96 98 O2 Delivery Room Air Room Air Room Air 11/13/18 11/13/18 11/13/18 11/13/18 16:29 16:30 19:00 19:30 Temp 98.2 98.2 Pulse 101 94 Resp 20 B/P (MAP) 159/103 115/89 (98) Pulse Ox 98 O2 Delivery Room Air Room Air Room Air 11/13/18 11/13/18 11/13/18 11/14/18 20:28 21:00 23:00 03:00 Temp 98.2 97.8 98.2 97.8 Pulse 84 93 Resp 18 18 18 B/P (MAP) 113/80 (91) 139/105 (116) Pulse Ox 96 95 100 99 O2 Delivery Room Air Room Air Room Air 11/14/18 11/14/18 11/14/18 11/14/18 03:18 05:01 07:00 08:00 Temp 97.9 97.9 Pulse 81 91 Resp 18 18 B/P (MAP) 119/87 (98) 144/98 (113) Pulse Ox 97 O2 Delivery Room Air Room Air Room Air 11/14/18 11/14/18 11/14/18 11/14/18 08:20 08:20 08:23 08:53 Pulse 91 91 Resp 16 16 B/P (MAP) 144/98 144/98 O2 Delivery Room Air Room Air Intake and Output 11/13/18 11/13/18 11/14/18 15:00 23:00 07:00 Intake Total 480 ml 600 ml 220 ml Output Total 300 ml Balance 480 ml 600 ml -80 ml Nutrition Consultation Dietary Evaluation: Recommendations by RD: Protein supplementation Comments: REC cardiac/ADA diet per pmhx, will adjust diet order REC Glucerna TID for protein intake while pt's appetite remains poor, dietary notified Expected Outcomes/Goals: PO intake to meet >75% est needs Interpretation of weight loss: >5% in 1 month Malnutrition Findings: Food and Nutrition Intake (Mod: <75% est energy req 7days Weight Status: Obese AUGUSTO DEVRIES III DO Nov 14, 2018 11:12
[2018-11-14] MEDS ORDERED: traMADol 50 MG TABLET PO PRN (11:15)
[2018-11-14 11:23] LABS: % BANDS 2 % (0-9); % EOS 2 % (0-5); % LYMPHS 54 % (24-48); % MONOS 6 % (0-10); % SEGS 36 % (35-66); PLT ESTIMATE ADEQUATE (ADEQUATE)
[2018-11-14 11:24] LABS: ANISOCYTOSIS PRESENT; POIKILOCYTOSIS PRESENT; SPHEROCYTES PRESENT; TARGET CELLS FEW
--- NOTE | 2018-11-14 11:48 | NUR ---
SS following up with discharge planning. Pt's spouse off the floor. SS contacted pt's spouse this morning and left voicemail notifying him that Dr. Lim was rounding this morning. Pt's spouse has not returned call at this time. Pt reporting to staff that she is going to [facility]. SS phoned and faxed referral to [facility], ; fax [phone]. SS will await acceptance decision and will proceed accordingly.
--- NOTE | 2018-11-14 12:25 | PDOC ---
Subjective: Subjective: Ate some eggs. Objective: Objective: Per RN - tray was delivered, shortly after pt's tray in the hallway - empty. Pt said she didn't eat much but that her packed some up for her. Vital Signs: Vital Signs Date Time Temp Pulse Resp B/P (MAP) Pulse Ox O2 Delivery O2 Flow Rate FiO2 11/14/18 11:00 96 150/84 (106) 11/14/18 08:53 16 Room Air 11/14/18 07:00 97.9 97 97.9 Labs: Laboratory Tests Test 11/14/18 06:10 White Blood Count 3.6 x10^3/uL Red Blood Count 2.91 x10^6/uL Hemoglobin 8.8 g/dL Hematocrit 26.9 % Mean Corpuscular Volume 92 fL Mean Corpuscular Hemoglobin 30 pg Mean Corpuscular Hemoglobin Concent 33 g/dL Red Cell Distribution Width 17.5 % Platelet Count 261 x10^3/uL Neutrophils (%) (Auto) 31 % Lymphocytes (%) (Auto) 60 % Monocytes (%) (Auto) 9 % Eosinophils (%) (Auto) 0 % Basophils (%) (Auto) 0 % Neutrophils # (Auto) 1.1 x10^3uL Lymphocytes # (Auto) 2.2 x10^3/uL Monocytes # (Auto) 0.3 x10^3/uL Eosinophils # (Auto) 0.0 x10^3/uL Basophils # (Auto) 0.0 x10^3/uL Segmented Neutrophils % 36 % Band Neutrophils % 2 % Lymphocytes % 54 % Monocytes % 6 % Eosinophils % 2 % Platelet Estimate Adequate Poikilocytosis Present Anisocytosis Present Spherocytes Present Target Cells Few Sodium Level 142 mmol/L Potassium Level 3.5 mmol/L Chloride Level 110 mmol/L Carbon Dioxide Level 22 mmol/L Anion Gap 10 Blood Urea Nitrogen 4 mg/dL Creatinine 0.4 mg/dL Estimated GFR (Cockcroft-Gault) 208.9 BUN/Creatinine Ratio 10 Glucose Level 128 mg/dL Calcium Level 7.9 mg/dL Total Bilirubin 2.6 mg/dL Aspartate Amino Transf (AST/SGOT) 167 U/L Alanine Aminotransferase (ALT/SGPT) 74 U/L Alkaline Phosphatase 98 U/L Total Protein 5.0 g/dL Albumin 1.5 g/dL Albumin/Globulin Ratio 0.4 PE: GEN: NAD - working with therapy - slowly puts pants on w/ help and slowly stands with walker NEURO/PSYCH: A & O 3, flat A/P: Nausea/anorexia Neutropenia, anemia, elevated LFTs (HFE pending) Chronic pain -- Varying history. Avoidance of narcotics might help her appetite. DC per primary. SHAMIR DAMON Nov 14, 2018 12:25
--- NOTE | 2018-11-14 14:12 | NUR ---
SS following up with discharge planning. Pt accepted at [facility]. Pt's spouse notified that he will need to bring prescription of Latuda from home and give to [facility] when pt admits. Pt's RN notified.
[2018-11-14] MEDS: RIVAROXABAN 10 MG TABLET. PO SCH (16:49)
[2018-11-14] MEDS: ZOLPIDEM 5 MG TABLET. PO PRN (20:48)
[2018-11-14] MEDS: cloNIDine HCL 0.1 MG TABLET PO PRN (20:48)
[2018-11-15] VITALS (7 sets, daily range): BP systolic 96–172; BP diastolic 58–192
[2018-11-15] MEDS: PANTOPRAZOLE 40 MG TABLET.DR. PO SCH ×2 (05:53→16:28)
[2018-11-15] MEDS: MEROPENEM 500 MG in IV NORMAL SALINE 50ML 50 ML IV SCH ×3 (05:53→21:27)
[2018-11-15 06:31] LABS: ALBUMIN 1.5 g/dL (3.4-5.0); ALBUMIN/GLOBULIN RATIO 0.4 (1.0-1.7); CALCIUM 7.8 mg/dL (8.5-10.1); CREATININE 0.4 mg/dL (0.6-1.0); GFR 208.9; POTASSIUM 3.5 mmol/L (3.5-5.1); TOTAL BILIRUBIN 2.2 mg/dL (0.2-1.0); TOTAL PROTEIN 4.9 g/dL (6.4-8.2)
[2018-11-15 06:44] LABS: BASO # 0.1 x10^3/uL (0.0-0.2); HEMOGLOBIN 8.7 g/dL (12.0-15.5); MEAN CORPUSCULAR HEMOGLOBIN 30 pg (25-35); MEAN CORPUSCULAR HGB CONC 32 g/dL (31-37); RED BLOOD COUNT 2.91 x10^6/uL (3.50-5.40); RED CELL DISTRIBUTION WIDTH 17.3 % (11.5-14.5)
[2018-11-15 07:25] LABS: BASO % 2 % (0-3); EOS % 1 % (0-3); HEMATOCRIT 26.9 % (36.0-47.0); LYMPH % 59 % (24-48); MEAN CORPUSCULAR VOLUME 93 fL (79-100); MONO % 15 % (0-9); NEUT % 24 % (31-73); PLATELET COUNT 274 x10^3/uL (140-400); WHITE BLOOD COUNT 4.3 x10^3/uL (4.0-11.0)
[2018-11-15 07:27] LABS: LYMPH # 2.5 x10^3/uL (1.0-4.8)
[2018-11-15 07:28] LABS: MONO # 0.6 x10^3/uL (0.0-1.1)
[2018-11-15] MEDS: SUCRALFATE 1 GM TABLET. PO SCH ×4 (08:36→20:24)
[2018-11-15] MEDS: LURASIDONE 40 MG TABLET. PO SCH (08:36)
[2018-11-15] MEDS: LACTOBACILLUS RHAMNOSUS GG 1 CAPSULE. PO SCH ×2 (08:36→20:24)
[2018-11-15] MEDS: MAGNESIUM OXIDE 400 MG TABLET PO SCH (08:36)
[2018-11-15] MEDS: LOSARTAN POTASSIUM 50 MG TABLET. PO SCH (08:37)
[2018-11-15] MEDS: FOLIC ACID 1 MG TABLET. PO SCH (08:37)
[2018-11-15] MEDS: POLYETHYLENE GLYCOL 3350 17 GM PACKET. PO SCH (08:37)
[2018-11-15] MEDS: CARVEDILOL 3.125 MG TABLET. PO SCH ×2 (08:37→17:11)
[2018-11-15] MEDS: ONDANSETRON PF 4 MG/2 ML VIAL. IV PRN ×3 (08:53→20:24)
--- NOTE | 2018-11-15 09:24 | PDOC ---
PULMONARY PROGRESS NOTES Subjective STILL NOT FEELING WELL NOT MORE SOA NO PLEURITIC PAIN Vitals Vital Signs Date Time Temp Pulse Resp B/P (MAP) Pulse Ox O2 Delivery O2 Flow Rate FiO2 11/15/18 08:37 81 136/83 11/15/18 07:15 98.3 18 100 Room Air 98.3 11/15/18 03:00 2.0 General: Alert, Lethargic Lungs: Clear Cardiovascular: S1, S2 Abdomen: Soft, Other (obese) Neuro Exam: Alert Extremities: Other (1+edema) Skin: Warm Labs Laboratory Tests Test 11/14/18 06:10 11/15/18 06:00 White Blood Count 3.6 x10^3/uL (4.0-11.0) 4.3 x10^3/uL (4.0-11.0) Red Blood Count 2.91 x10^6/uL (3.50-5.40) 2.91 x10^6/uL (3.50-5.40) Hemoglobin 8.8 g/dL (12.0-15.5) 8.7 g/dL (12.0-15.5) Hematocrit 26.9 % (36.0-47.0) 26.9 % (36.0-47.0) Mean Corpuscular Volume 92 fL (79-100) 93 fL (79-100) Mean Corpuscular Hemoglobin 30 pg (25-35) 30 pg (25-35) Mean Corpuscular Hemoglobin Concent 33 g/dL (31-37) 32 g/dL (31-37) Red Cell Distribution Width 17.5 % (11.5-14.5) 17.3 % (11.5-14.5) Platelet Count 261 x10^3/uL (140-400) 274 x10^3/uL (140-400) Neutrophils (%) (Auto) 31 % (31-73) 24 % (31-73) Lymphocytes (%) (Auto) 60 % (24-48) 59 % (24-48) Monocytes (%) (Auto) 9 % (0-9) 15 % (0-9) Eosinophils (%) (Auto) 0 % (0-3) 1 % (0-3) Basophils (%) (Auto) 0 % (0-3) 2 % (0-3) Neutrophils # (Auto) 1.1 x10^3uL (1.8-7.7) 1.0 x10^3uL (1.8-7.7) Lymphocytes # (Auto) 2.2 x10^3/uL (1.0-4.8) 2.5 x10^3/uL (1.0-4.8) Monocytes # (Auto) 0.3 x10^3/uL (0.0-1.1) 0.6 x10^3/uL (0.0-1.1) Eosinophils # (Auto) 0.0 x10^3/uL (0.0-0.7) 0.0 x10^3/uL (0.0-0.7) Basophils # (Auto) 0.0 x10^3/uL (0.0-0.2) 0.1 x10^3/uL (0.0-0.2) Segmented Neutrophils % 36 % (35-66) Band Neutrophils % 2 % (0-9) Lymphocytes % 54 % (24-48) Monocytes % 6 % (0-10) Eosinophils % 2 % (0-5) Platelet Estimate Adequate (ADEQUATE) Poikilocytosis Present Anisocytosis Present Spherocytes Present Target Cells Few Sodium Level 142 mmol/L (136-145) 143 mmol/L (136-145) Potassium Level 3.5 mmol/L (3.5-5.1) 3.5 mmol/L (3.5-5.1) Chloride Level 110 mmol/L (98-107) 111 mmol/L (98-107) Carbon Dioxide Level 22 mmol/L (21-32) 22 mmol/L (21-32) Anion Gap 10 (6-14) 10 (6-14) Blood Urea Nitrogen 4 mg/dL (7-20) 4 mg/dL (7-20) Creatinine 0.4 mg/dL (0.6-1.0) 0.4 mg/dL (0.6-1.0) Estimated GFR (Cockcroft-Gault) 208.9 208.9 BUN/Creatinine Ratio 10 (6-20) 10 (6-20) Glucose Level 128 mg/dL (70-99) 128 mg/dL (70-99) Calcium Level 7.9 mg/dL (8.5-10.1) 7.8 mg/dL (8.5-10.1) Total Bilirubin 2.6 mg/dL (0.2-1.0) 2.2 mg/dL (0.2-1.0) Aspartate Amino Transf (AST/SGOT) 167 U/L (15-37) 144 U/L (15-37) Alanine Aminotransferase (ALT/SGPT) 74 U/L (14-59) 68 U/L (14-59) Alkaline Phosphatase 98 U/L (46-116) 96 U/L (46-116) Total Protein 5.0 g/dL (6.4-8.2) 4.9 g/dL (6.4-8.2) Albumin 1.5 g/dL (3.4-5.0) 1.5 g/dL (3.4-5.0) Albumin/Globulin Ratio 0.4 (1.0-1.7) 0.4 (1.0-1.7) Laboratory Tests Test 11/15/18 06:00 White Blood Count 4.3 x10^3/uL (4.0-11.0) Red Blood Count 2.91 x10^6/uL (3.50-5.40) Hemoglobin 8.7 g/dL (12.0-15.5) Hematocrit 26.9 % (36.0-47.0) Mean Corpuscular Volume 93 fL (79-100) Mean Corpuscular Hemoglobin 30 pg (25-35) Mean Corpuscular Hemoglobin Concent 32 g/dL (31-37) Red Cell Distribution Width 17.3 % (11.5-14.5) Platelet Count 274 x10^3/uL (140-400) Neutrophils (%) (Auto) 24 % (31-73) Lymphocytes (%) (Auto) 59 % (24-48) Monocytes (%) (Auto) 15 % (0-9) Eosinophils (%) (Auto) 1 % (0-3) Basophils (%) (Auto) 2 % (0-3) Neutrophils # (Auto) 1.0 x10^3uL (1.8-7.7) Lymphocytes # (Auto) 2.5 x10^3/uL (1.0-4.8) Monocytes # (Auto) 0.6 x10^3/uL (0.0-1.1) Eosinophils # (Auto) 0.0 x10^3/uL (0.0-0.7) Basophils # (Auto) 0.1 x10^3/uL (0.0-0.2) Sodium Level 143 mmol/L (136-145) Potassium Level 3.5 mmol/L (3.5-5.1) Chloride Level 111 mmol/L (98-107) Carbon Dioxide Level 22 mmol/L (21-32) Anion Gap 10 (6-14) Blood Urea Nitrogen 4 mg/dL (7-20) Creatinine 0.4 mg/dL (0.6-1.0) Estimated GFR (Cockcroft-Gault) 208.9 BUN/Creatinine Ratio 10 (6-20) Glucose Level 128 mg/dL (70-99) Calcium Level 7.8 mg/dL (8.5-10.1) Total Bilirubin 2.2 mg/dL (0.2-1.0) Aspartate Amino Transf (AST/SGOT) 144 U/L (15-37) Alanine Aminotransferase (ALT/SGPT) 68 U/L (14-59) Alkaline Phosphatase 96 U/L (46-116) Total Protein 4.9 g/dL (6.4-8.2) Albumin 1.5 g/dL (3.4-5.0) Albumin/Globulin Ratio 0.4 (1.0-1.7) Medications Active Scripts Medications Dose Route/Sig Max Daily Dose Days Date Category Cozaar (Losartan Potassium) 50 Mg Tablet 100 Mg PO DAILY 30 07/05/18 Rx Carafate (Sucralfate) 1 Gm Tablet 1 Gm PO QIDACHS 04/21/18 Rx [Pantoprazole] 40 MG Tablet.dr 40 Mg PO BIDAC 04/21/18 Rx Carvedilol 3.125 Mg Tablet 3.125 Mg PO BIDWMEALS 04/18/18 Reported Xarelto (Rivaroxaban) 20 Mg Tablet 20 Mg PO DAILY 04/18/18 Reported Latuda (Lurasidone Hcl) 40 Mg Tablet 40 Mg PO DAILY 04/18/18 Reported Vitamin D3 (Cholecalciferol (Vitamin D3)) 50,000 Unit Capsule 50,000 Unit PO WEEKLY 04/18/18 Reported Folic Acid 1 Mg Tablet 1 Mg PO DAILY 04/18/18 Reported Magnesium Oxide 400 Mg Tablet 250 Mg PO DAILY 04/18/18 Reported Impression . 1. The patient with history of pulmonary embolism and deep venous thrombosis, now comes in with chest pain, which is probably related to her anastomotic ulcer. The CT angiogram and V/Q scan have been reviewed and do not show any new blood clot. The CTA shows chronic linear clot and the V/Q scan shows mismatched defect in the left lower lobe. The venous Doppler shows nonocclusive thrombus. 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 We need to closely monitor for any anemia or bleeding while on anticoagulation. 2. No history of hypercoagulable state. 3. Morbid obesity with decreased ambulation. 4. Loss of appetite secondary to ulcer, resulting in decreased oral intake. 5. s/p EGD/ small bowel series/ healed anastomotic ulcer 6. Narcotic seeking Plan . RESP STATUS IS COMPENSATED WILL CONTINUE THE SAME D/W GI BRIDGE WITH LOVENOX OR HEPARIN FOR PROCEDURE XARELTO FOLLOW UP AT REGARDING THE DURATION OF ANTICOAGULATION KASI WORKMAN MD Nov 15, 2018 09:23
--- NOTE | 2018-11-15 10:03 | PDOC ---
Subjective: Subjective: Ate some toast, has only been out of bed for the restroom, says people need to remember to close her door so she can sleep because she's tired. Objective: Objective: Just used her call light to ask the nurse to shut her door all the way. Vital Signs: Vital Signs Date Time Temp Pulse Resp B/P (MAP) Pulse Ox O2 Delivery O2 Flow Rate FiO2 11/15/18 08:37 81 136/83 11/15/18 07:15 98.3 18 100 Room Air 98.3 11/15/18 03:00 2.0 Labs: Laboratory Tests Test 11/15/18 06:00 White Blood Count 4.3 x10^3/uL Red Blood Count 2.91 x10^6/uL Hemoglobin 8.7 g/dL Hematocrit 26.9 % Mean Corpuscular Volume 93 fL Mean Corpuscular Hemoglobin 30 pg Mean Corpuscular Hemoglobin Concent 32 g/dL Red Cell Distribution Width 17.3 % Platelet Count 274 x10^3/uL Neutrophils (%) (Auto) 24 % Lymphocytes (%) (Auto) 59 % Monocytes (%) (Auto) 15 % Eosinophils (%) (Auto) 1 % Basophils (%) (Auto) 2 % Neutrophils # (Auto) 1.0 x10^3uL Lymphocytes # (Auto) 2.5 x10^3/uL Monocytes # (Auto) 0.6 x10^3/uL Eosinophils # (Auto) 0.0 x10^3/uL Basophils # (Auto) 0.1 x10^3/uL Sodium Level 143 mmol/L Potassium Level 3.5 mmol/L Chloride Level 111 mmol/L Carbon Dioxide Level 22 mmol/L Anion Gap 10 Blood Urea Nitrogen 4 mg/dL Creatinine 0.4 mg/dL Estimated GFR (Cockcroft-Gault) 208.9 BUN/Creatinine Ratio 10 Glucose Level 128 mg/dL Calcium Level 7.8 mg/dL Total Bilirubin 2.2 mg/dL Aspartate Amino Transf (AST/SGOT) 144 U/L Alanine Aminotransferase (ALT/SGPT) 68 U/L Alkaline Phosphatase 96 U/L Total Protein 4.9 g/dL Albumin 1.5 g/dL Albumin/Globulin Ratio 0.4 PE: GEN: NAD, in bed LUNGS: room air ABD: soft, non-tender NEURO/PSYCH: A & O 3, flat A/P: Anorexia, chronic pain Abnormal LFTs, iron studies, and HFE test H/o PE/DVTs on Xarelto -- She would like to proceed w/ liver biopsy - will review w/ Dr. Watt. SHAMIR DAMON Nov 15, 2018 10:03
[2018-11-15] MEDS: guaiFENesin ORAL 200 MG/10 ML LIQUID. PO PRN ×2 (11:49→20:24)
--- NOTE | 2018-11-15 13:14 | PDOC ---
PROGRESS NOTES Chief Complaint Chief Complaint Transaminitis most likely secondary to steatohepatitis Chest pain acute coronary syndrome ruled out UTI: 5-10WBC, positive nitrite and LE History of pulmonary embolism last year Old thrombus noted, back on anticoagulation linear filling defects in the bilateral pulmonary arteries which could be secondary to old recanalized embolus. 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 Non adherence to PPI and carafate for ulcer treatment Inability to tolerate PO well persists History of IVC filter placement Obesity with BMI of 34 Mild bilirubinemia Hypokalemia and hyponatremia as a consequence of her poor oral intake, on replacement intractable nausea persists hypertension, suboptimal control History of Present Illness History of Present Illness Patient seen and examined at bedside. More animated today. Discussed liver biopsy with patient today, she is aware that they plan to do this. Discussed case with RN. Patient on Xarelto, hx of PE with IVC filter (at ). AST/ALT remain elevated. GI following. Vitals Vitals Vital Signs Date Time Temp Pulse Resp B/P (MAP) Pulse Ox O2 Delivery O2 Flow Rate FiO2 11/15/18 11:06 98.7 77 18 154/87 (109) 99 Room Air 98.7 11/15/18 08:00 2.0 Physical Exam General: Alert, Oriented X3, Cooperative, mild distress (nausea) Heart: Regular rate (SR), Normal S1, Normal S2, No murmurs, Other (2/6 systolic murmur to LLS border) Lungs: Clear Abdomen: Normal bowel sounds, Soft, No tenderness Extremities: No clubbing, No cyanosis, No edema Skin: No rashes, No significant lesion Labs LABS Laboratory Tests Test 11/15/18 06:00 White Blood Count 4.3 x10^3/uL (4.0-11.0) Red Blood Count 2.91 x10^6/uL (3.50-5.40) Hemoglobin 8.7 g/dL (12.0-15.5) Hematocrit 26.9 % (36.0-47.0) Mean Corpuscular Volume 93 fL (79-100) Mean Corpuscular Hemoglobin 30 pg (25-35) Mean Corpuscular Hemoglobin Concent 32 g/dL (31-37) Red Cell Distribution Width 17.3 % (11.5-14.5) Platelet Count 274 x10^3/uL (140-400) Neutrophils (%) (Auto) 24 % (31-73) Lymphocytes (%) (Auto) 59 % (24-48) Monocytes (%) (Auto) 15 % (0-9) Eosinophils (%) (Auto) 1 % (0-3) Basophils (%) (Auto) 2 % (0-3) Neutrophils # (Auto) 1.0 x10^3uL (1.8-7.7) Lymphocytes # (Auto) 2.5 x10^3/uL (1.0-4.8) Monocytes # (Auto) 0.6 x10^3/uL (0.0-1.1) Eosinophils # (Auto) 0.0 x10^3/uL (0.0-0.7) Basophils # (Auto) 0.1 x10^3/uL (0.0-0.2) Sodium Level 143 mmol/L (136-145) Potassium Level 3.5 mmol/L (3.5-5.1) Chloride Level 111 mmol/L (98-107) Carbon Dioxide Level 22 mmol/L (21-32) Anion Gap 10 (6-14) Blood Urea Nitrogen 4 mg/dL (7-20) Creatinine 0.4 mg/dL (0.6-1.0) Estimated GFR (Cockcroft-Gault) 208.9 BUN/Creatinine Ratio 10 (6-20) Glucose Level 128 mg/dL (70-99) Calcium Level 7.8 mg/dL (8.5-10.1) Total Bilirubin 2.2 mg/dL (0.2-1.0) Aspartate Amino Transf (AST/SGOT) 144 U/L (15-37) Alanine Aminotransferase (ALT/SGPT) 68 U/L (14-59) Alkaline Phosphatase 96 U/L (46-116) Total Protein 4.9 g/dL (6.4-8.2) Albumin 1.5 g/dL (3.4-5.0) Albumin/Globulin Ratio 0.4 (1.0-1.7) Review of Systems Review of Systems Pt continues to report some abd pain and weakness Denies CP, ADKINS SOB Assessment and Plan Assessmemt and Plan Problems Medical Problems: (1) Chest pain Status: Acute (2) Elevated bilirubin Status: Acute Assessment: Transaminitis most likely secondary to steatohepatitis Chest pain acute coronary syndrome ruled out UTI: 5-10WBC, positive nitrite and LE History of pulmonary embolism last year Old thrombus noted, back on anticoagulation linear filling defects in the bilateral pulmonary arteries which could be secondary to old recanalized embolus. 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 Non adherence to PPI and carafate for ulcer treatment Inability to tolerate PO well persists History of IVC filter placement Obesity with BMI of 34 Mild bilirubinemia Hypokalemia and hyponatremia as a consequence of her poor oral intake, on replacement intractable nausea persists hypertension, suboptimal control Plan: Appreciate GI input, awaiting liver biopsy to confirm hemochromatosis PT/OT Continue pain management Start ultram 50mg, reduce morphine Continue meropenem IV Review labs in the am Pt accepted to [facility] per SS Plan to D/C when GI agrees Comment Review of Relevant I have reviewed the following items leo (where applicable) has been applied. Labs Laboratory Tests Test 11/14/18 06:10 11/15/18 06:00 White Blood Count 3.6 x10^3/uL (4.0-11.0) 4.3 x10^3/uL (4.0-11.0) Red Blood Count 2.91 x10^6/uL (3.50-5.40) 2.91 x10^6/uL (3.50-5.40) Hemoglobin 8.8 g/dL (12.0-15.5) 8.7 g/dL (12.0-15.5) Hematocrit 26.9 % (36.0-47.0) 26.9 % (36.0-47.0) Mean Corpuscular Volume 92 fL (79-100) 93 fL (79-100) Mean Corpuscular Hemoglobin 30 pg (25-35) 30 pg (25-35) Mean Corpuscular Hemoglobin Concent 33 g/dL (31-37) 32 g/dL (31-37) Red Cell Distribution Width 17.5 % (11.5-14.5) 17.3 % (11.5-14.5) Platelet Count 261 x10^3/uL (140-400) 274 x10^3/uL (140-400) Neutrophils (%) (Auto) 31 % (31-73) 24 % (31-73) Lymphocytes (%) (Auto) 60 % (24-48) 59 % (24-48) Monocytes (%) (Auto) 9 % (0-9) 15 % (0-9) Eosinophils (%) (Auto) 0 % (0-3) 1 % (0-3) Basophils (%) (Auto) 0 % (0-3) 2 % (0-3) Neutrophils # (Auto) 1.1 x10^3uL (1.8-7.7) 1.0 x10^3uL (1.8-7.7) Lymphocytes # (Auto) 2.2 x10^3/uL (1.0-4.8) 2.5 x10^3/uL (1.0-4.8) Monocytes # (Auto) 0.3 x10^3/uL (0.0-1.1) 0.6 x10^3/uL (0.0-1.1) Eosinophils # (Auto) 0.0 x10^3/uL (0.0-0.7) 0.0 x10^3/uL (0.0-0.7) Basophils # (Auto) 0.0 x10^3/uL (0.0-0.2) 0.1 x10^3/uL (0.0-0.2) Segmented Neutrophils % 36 % (35-66) Band Neutrophils % 2 % (0-9) Lymphocytes % 54 % (24-48) Monocytes % 6 % (0-10) Eosinophils % 2 % (0-5) Platelet Estimate Adequate (ADEQUATE) Poikilocytosis Present Anisocytosis Present Spherocytes Present Target Cells Few Sodium Level 142 mmol/L (136-145) 143 mmol/L (136-145) Potassium Level 3.5 mmol/L (3.5-5.1) 3.5 mmol/L (3.5-5.1) Chloride Level 110 mmol/L (98-107) 111 mmol/L (98-107) Carbon Dioxide Level 22 mmol/L (21-32) 22 mmol/L (21-32) Anion Gap 10 (6-14) 10 (6-14) Blood Urea Nitrogen 4 mg/dL (7-20) 4 mg/dL (7-20) Creatinine 0.4 mg/dL (0.6-1.0) 0.4 mg/dL (0.6-1.0) Estimated GFR (Cockcroft-Gault) 208.9 208.9 BUN/Creatinine Ratio 10 (6-20) 10 (6-20) Glucose Level 128 mg/dL (70-99) 128 mg/dL (70-99) Calcium Level 7.9 mg/dL (8.5-10.1) 7.8 mg/dL (8.5-10.1) Total Bilirubin 2.6 mg/dL (0.2-1.0) 2.2 mg/dL (0.2-1.0) Aspartate Amino Transf (AST/SGOT) 167 U/L (15-37) 144 U/L (15-37) Alanine Aminotransferase (ALT/SGPT) 74 U/L (14-59) 68 U/L (14-59) Alkaline Phosphatase 98 U/L (46-116) 96 U/L (46-116) Total Protein 5.0 g/dL (6.4-8.2) 4.9 g/dL (6.4-8.2) Albumin 1.5 g/dL (3.4-5.0) 1.5 g/dL (3.4-5.0) Albumin/Globulin Ratio 0.4 (1.0-1.7) 0.4 (1.0-1.7) Laboratory Tests Test 11/15/18 06:00 White Blood Count 4.3 x10^3/uL (4.0-11.0) Red Blood Count 2.91 x10^6/uL (3.50-5.40) Hemoglobin 8.7 g/dL (12.0-15.5) Hematocrit 26.9 % (36.0-47.0) Mean Corpuscular Volume 93 fL (79-100) Mean Corpuscular Hemoglobin 30 pg (25-35) Mean Corpuscular Hemoglobin Concent 32 g/dL (31-37) Red Cell Distribution Width 17.3 % (11.5-14.5) Platelet Count 274 x10^3/uL (140-400) Neutrophils (%) (Auto) 24 % (31-73) Lymphocytes (%) (Auto) 59 % (24-48) Monocytes (%) (Auto) 15 % (0-9) Eosinophils (%) (Auto) 1 % (0-3) Basophils (%) (Auto) 2 % (0-3) Neutrophils # (Auto) 1.0 x10^3uL (1.8-7.7) Lymphocytes # (Auto) 2.5 x10^3/uL (1.0-4.8) Monocytes # (Auto) 0.6 x10^3/uL (0.0-1.1) Eosinophils # (Auto) 0.0 x10^3/uL (0.0-0.7) Basophils # (Auto) 0.1 x10^3/uL (0.0-0.2) Sodium Level 143 mmol/L (136-145) Potassium Level 3.5 mmol/L (3.5-5.1) Chloride Level 111 mmol/L (98-107) Carbon Dioxide Level 22 mmol/L (21-32) Anion Gap 10 (6-14) Blood Urea Nitrogen 4 mg/dL (7-20) Creatinine 0.4 mg/dL (0.6-1.0) Estimated GFR (Cockcroft-Gault) 208.9 BUN/Creatinine Ratio 10 (6-20) Glucose Level 128 mg/dL (70-99) Calcium Level 7.8 mg/dL (8.5-10.1) Total Bilirubin 2.2 mg/dL (0.2-1.0) Aspartate Amino Transf (AST/SGOT) 144 U/L (15-37) Alanine Aminotransferase (ALT/SGPT) 68 U/L (14-59) Alkaline Phosphatase 96 U/L (46-116) Total Protein 4.9 g/dL (6.4-8.2) Albumin 1.5 g/dL (3.4-5.0) Albumin/Globulin Ratio 0.4 (1.0-1.7) Microbiology 11/06/18 Urine Culture - Final, Complete 11/06/18 Urine Culture Result 1 ([facility]) - Final, Complete 11/06/18 Antimicrobic Susceptibility - Final, Complete Medications Current Medications Aspirin (Children'S Aspirin) 324 mg 1X ONCE PO Last administered on 11/06/18at 10:44; Start 11/06/18 at 09:15; Stop 11/06/18 at 09:18; Status DC Morphine Sulfate (Morphine Sulfate) 4 mg PRN Q15MIN PRN IV/SQ PAIN GREATER THAN 3/10 Last administered on 11/06/18 13:14; Start 11/06/18 at 09:15; Stop at 09:14; Status DC Ondansetron HCl (Zofran) 4 mg 1X ONCE IV Last administered on 11/06/18 10:44 ; Start 11/06/18 at 09:15; Stop 11/06/18 at 09:18; Status DC Iohexol (Omnipaque 350 Mg/ml) 100 ml 1X ONCE IV Last administered on 22:00; Start 11/06/18 at 11:30; Stop 11/06/18 at 11:33; Status DC Info (CONTRAST GIVEN -- Rx MONITORING) 1 each PRN DAILY PRN MC SEE COMMENTS; Start 11/06/18 at 11:45; Stop 11/08/18 at 11:44; Status DC Levofloxacin/ Dextrose 100 ml @ 100 mls/hr 1X ONCE IV Last administered on 15:30; Start 11/06/18 at 13:15; Stop 11/06/18 at 14:14; Status DC Ondansetron HCl (Zofran) 4 mg PRN Q4HRS PRN IV NAUSEA/VOMITING Last administered on 11/15/18 08:53; Start 11/06/18 at 13:30 Zolpidem Tartrate (Ambien) 5 mg PRN QHS PRN PO INSOMNIA Last administered on 20:48; Start 11/06/18 at 13:30 Acetaminophen (Tylenol) 650 mg PRN Q4HRS PRN PO TEMP OVER 100.4F OR MILD PAIN Last administered on 11/06/18 17:10; Start 11/06/18 at 13:30 Al Hydroxide/Mg Hydroxide (Mylanta Plus Xs) 30 ml PRN DAILY PRN PO HEARTBURN / GAS; Start 11/06/18 at 13:30 Clonidine HCl (Catapres) 0.1 mg PRN Q6HRS PRN PO SBP>160 OR DBP>90 Last administered on 11/14/18 20:48; Start 11/06/18 at 13:30 Diphenhydramine HCl (Benadryl) 25 mg PRN Q4HRS PRN IVP ITCHING; Start 11/06/18 at 13:30 Docusate Sodium (Colace) 100 mg PRN BID PRN PO HARD STOOLS Last administered on 11/13/18 08:06; Start 11/06/18 at 13:30 Albuterol Sulfate (Ventolin Neb Soln) 2.5 mg PRN Q4HRS PRN NEB SHORTNESS OF BREATH Last administered on 11/12/18 08:08; Start 11/06/18 at 13:30 Guaifenesin (Robitussin) 200 mg PRN Q4HRS PRN PO COUGH Last administered on 11:49; Start 11/06/18 at 13:30 Lorazepam (Ativan) 0.5 mg PRN Q4HRS PRN PO ANXIETY / AGITATION; Start 11/06/18 at 13:30 Carvedilol (Coreg) 3.125 mg BIDWMEALS PO Last administered on 11/15/18 08:37; Start 11/06/18 at 17:00 Folic Acid (Folic Acid) 1 mg DAILY PO Last administered on 11/15/18 08:37; Start 11/06/18 at 15:00 Losartan Potassium (Cozaar) 100 mg DAILY PO Last administered on 11/15/18 08: 37; Start 11/06/18 at 15:00 Lurasidone HCl (Latuda) 40 mg DAILY PO Last administered on 11/15/18 08:36; Start 11/06/18 at 15:00 Ergocalciferol (Vitamin D2) 50,000 unit WEEKLY PO Last administered on 08:07; Start 11/06/18 at 15:00 Magnesium Oxide (Magnesium Oxide) 200 mg DAILY PO Last administered on 08:36; Start 11/06/18 at 15:00 Rivaroxaban (Xarelto) 20 mg DAILYWSUP PO ; Start 11/06/18 at 17:00; Stop at 17:00; Status DC Sucralfate (Carafate) 1 gm QIDACHS PO Last administered on 11/15/18 11:48; Start 11/06/18 at 16:30 Pantoprazole Sodium (Protonix) 40 mg BIDAC PO Last administered on 11/15/18 05 :53; Start 11/06/18 at 16:30 Info (Anti-Coagulation Monitoring By Pharmacy) 1 each PRN DAILY PRN MC SEE COMMENTS Last administered on 11/07/18at 10:59; Start 11/06/18 at 14:15 Potassium Chloride (KCl Oral Soln) 20 meq 1X ONCE PEG Last administered on at 17:09; Start 11/06/18 at 15:00; Stop 11/06/18 at 15:01; Status DC Heparin Sodium/ Dextrose 500 ml @ 0 mls/hr CONT PRN IV SEE I/O RECORD; Start at 16:30; Status UNV Heparin Sodium (Porcine) (Heparin Sodium) 6,600 unit 1X ONCE IV Last administered on 11/06/18at 17:20; Start 11/06/18 at 16:30; Stop 11/07/18 at 09:48 ; Status DC Heparin Sodium/ Dextrose 500 ml @ 0 mls/hr CONT PRN IV SEE I/O RECORD Last administered on 11/06/18at 17:32; Start 11/06/18 at 16:30; Stop 11/07/18 at 09:48 ; Status DC Heparin Sodium (Porcine) (Heparin Sodium) 2,500 unit PRN Q6HRS PRN IV FOR UFH LEVEL LESS THAN 0.2; Start 11/06/18 at 16:30; Stop 11/07/18 at 09:48; Status DC Heparin Sodium (Porcine) (Heparin Sodium) 1,200 unit PRN Q6HRS PRN IV FOR UFH LEVEL 0.2 - 0.29; Start 11/06/18 at 16:30; Stop 11/07/18 at 09:48; Status DC Morphine Sulfate (Morphine Sulfate) 2 mg Q3HRS PRN IV PAIN Last administered on 11/14/18at 08:23; Start 11/06/18 at 19:30 Iohexol (Omnipaque 350 Mg/ml) 100 ml STK-MED ONCE .ROUTE ; Start 11/07/18 at 02: 38; Stop 11/07/18 at 02:39; Status DC Rivaroxaban (Xarelto) 20 mg DAILYWSUP PO Last administered on 11/14/18at 16:49; Start 11/07/18 at 10:00 Bisacodyl (Dulcolax Tab) 5 mg 1X ONCE PO Last administered on 11/07/18at 13:40 ; Start 11/07/18 at 14:00; Stop 11/07/18 at 14:01; Status DC Polyethylene Glycol (miraLAX PACKET) 17 gm DAILY PO Last administered on at 08:37; Start 11/07/18 at 14:00 Midazolam HCl (Versed) 2 mg PRN 1X PRN IV PRIOR TO PROCEDURE; Start 11/08/18 at 09:30; Stop 11/09/18 at 09:29; Status DC Ringer's Solution 1,000 ml @ 125 mls/hr Q8H IV Last administered on 11/08/18at 09:28; Start 11/08/18 at 09:24; Stop 11/08/18 at 21:23; Status DC Lidocaine HCl (Xylocaine-Mpf 1% 2ml Vial) 2 ml 1X PRN PRN ID IV START; Start at 09:30; Stop 11/09/18 at 09:29; Status DC Barium Sulfate (Liquid E-Z Paque) 711 ml 1X ONCE PO Last administered on at 10:15; Start 11/08/18 at 10:15; Stop 11/08/18 at 10:17; Status DC Ciprofloxacin (Cipro) 500 mg BID PO Last administered on 11/10/18at 08:32; Start 11/08/18 at 15:00; Stop 11/10/18 at 14:17; Status DC Iohexol (Omnipaque 300 Mg/ml) 70 ml 1X ONCE IV Last administered on 11/08/18at 08:36; Start 11/08/18 at 17:15; Stop 11/08/18 at 17:16; Status DC Info (CONTRAST GIVEN -- Rx MONITORING) 1 each PRN DAILY PRN MC SEE COMMENTS; Start 11/08/18 at 17:15; Stop 11/10/18 at 17:14; Status DC Lactobacillus Rhamnosus (Culturelle) 1 cap BID PO Last administered on at 08:36; Start 11/09/18 at 09:00 Potassium Chloride (Klor-Con) 40 meq 1X ONCE PO Last administered on at 18:15; Start 11/09/18 at 19:00; Stop 11/09/18 at 19:01; Status DC Potassium Chloride (Klor-Con) 40 meq 1X ONCE PO Last administered on 15:02; Start 11/10/18 at 15:00; Stop 11/10/18 at 15:01; Status DC Meropenem 500 mg/ Sodium Chloride 50 ml @ 100 mls/hr Q8HRS IV Last administered on 11/15/18at 05:53; Start 11/10/18 at 15:00 Potassium Chloride (Klor-Con) 40 meq 1X ONCE PO Last administered on at 11:32; Start 11/12/18 at 11:00; Stop 11/12/18 at 11:01; Status DC Acetaminophen/ Hydrocodone Bitart (Lortab 5/325) 1 tab PRN Q4HRS PRN PO SEVERE PAIN Last administered on 11/12/18 15:00; Start 11/12/18 at 11:00 Magnesium Hydroxide (Milk Of Magnesia) 2,400 mg PRN DAILY PRN PO CONSTIPATION Last administered on 11/14/18at 11:10; Start 11/12/18 at 11:00 Bisacodyl (Dulcolax Supp) 10 mg PRN DAILY PRN ID CONSTIPATION Last administered on 11/12/18at 13:07; Start 11/12/18 at 11:00 Tramadol HCl (Ultram) 50 mg PRN Q6HRS PRN PO MODERATE PAIN Last administered on 11/14/18at 16:52; Start 11/14/18 at 11:15 Active Scripts Active Cozaar (Losartan Potassium) 50 Mg Tablet 100 Mg PO DAILY 30 Days Carafate (Sucralfate) 1 Gm Tablet 1 Gm PO QIDACHS [Pantoprazole] 40 MG Tablet.dr 40 Mg PO BIDAC Reported Carvedilol 3.125 Mg Tablet 3.125 Mg PO BIDWMEALS Xarelto (Rivaroxaban) 20 Mg Tablet 20 Mg PO DAILY Latuda (Lurasidone Hcl) 40 Mg Tablet 40 Mg PO DAILY Vitamin D3 (Cholecalciferol (Vitamin D3)) 50,000 Unit Capsule 50,000 Unit PO WEEKLY Folic Acid 1 Mg Tablet 1 Mg PO DAILY Magnesium Oxide 400 Mg Tablet 250 Mg PO DAILY Vitals/I & O Vital Sign - Last 24 Hours 11/14/18 11/14/18 11/14/18 11/14/18 15:00 16:49 16:52 17:52 Pulse 93 93 Resp 20 16 16 B/P (MAP) 142/88 (106) 142/88 Pulse Ox 100 O2 Delivery Room Air Room Air Room Air 11/14/18 11/14/18 11/14/18 11/14/18 19:30 20:12 20:48 23:40 Temp 98.2 97.5 98.2 97.5 Pulse 90 90 75 Resp 17 16 B/P (MAP) 168/113 (131) 168/113 127/89 (102) Pulse Ox 97 96 O2 Delivery Room Air Room Air Room Air 11/15/18 11/15/18 11/15/18 11/15/18 01:00 03:00 07:15 08:00 Temp 97.7 97.8 98.3 97.7 97.8 98.3 Pulse 77 72 81 Resp 18 18 18 B/P (MAP) 132/80 (97) 120/58 (78) 136/83 (100) Pulse Ox 100 100 100 O2 Delivery Room Air Room Air Room Air Room Air O2 Flow Rate 2.0 2.0 11/15/18 11/15/18 11/15/18 08:37 08:37 11:06 Temp 98.7 98.7 Pulse 81 81 77 Resp 18 B/P (MAP) 136/83 136/83 154/87 (109) Pulse Ox 99 O2 Delivery Room Air Intake and Output 11/14/18 11/14/18 11/15/18 15:00 23:00 07:00 Intake Total 600 ml Balance 600 ml Nutrition Consultation Dietary Evaluation: Recommendations by RD: Protein supplementation Comments: REC cardiac/ADA diet per pmhx, will adjust diet order REC Glucerna TID for protein intake while pt's appetite remains poor, dietary notified Expected Outcomes/Goals: PO intake to meet >75% est needs Interpretation of weight loss: >5% in 1 month Malnutrition Findings: Food and Nutrition Intake (Mod: <75% est energy req 7days Weight Status: Obese AUGUSTO DEVRIES III DO Nov 15, 2018 13:14
[2018-11-15] MEDS: HYDROcodone/APAP 5/325MG 1 TAB TABLET PO PRN (16:19)
[2018-11-15] MEDS: ENOXAPARIN 40 MG/0.4 ML SYRINGE. SQ SCH (20:25)
[2018-11-15] MEDS: cloNIDine HCL 0.1 MG TABLET PO PRN (20:27)
[2018-11-16 02:55] VITALS: BP 122/80
[2018-11-16] MEDS: MEROPENEM 500 MG in IV NORMAL SALINE 50ML 50 ML IV SCH ×3 (04:50→20:43)
[2018-11-16 05:19] LABS: BASO # 0.1 x10^3/uL (0.0-0.2); BASO % 2 % (0-3); EOS % 1 % (0-3); HEMATOCRIT 26.6 % (36.0-47.0); HEMOGLOBIN 8.6 g/dL (12.0-15.5); LYMPH # 2.7 x10^3/uL (1.0-4.8); LYMPH % 61 % (24-48); MEAN CORPUSCULAR HEMOGLOBIN 30 pg (25-35); MEAN CORPUSCULAR HGB CONC 33 g/dL (31-37); MEAN CORPUSCULAR VOLUME 93 fL (79-100); MONO # 0.5 x10^3/uL (0.0-1.1); MONO % 10 % (0-9); NEUT # 1.2 x10^3uL (1.8-7.7); NEUT % 26 % (31-73); PLATELET COUNT 297 x10^3/uL (140-400); RED BLOOD COUNT 2.87 x10^6/uL (3.50-5.40); RED CELL DISTRIBUTION WIDTH 17.8 % (11.5-14.5); WHITE BLOOD COUNT 4.5 x10^3/uL (4.0-11.0)
[2018-11-16 05:39] LABS: ALBUMIN 1.5 g/dL (3.4-5.0); ALBUMIN/GLOBULIN RATIO 0.4 (1.0-1.7); CALCIUM 7.7 mg/dL (8.5-10.1); CREATININE 0.4 mg/dL (0.6-1.0); GFR 208.9; POTASSIUM 3.2 mmol/L (3.5-5.1); TOTAL BILIRUBIN 2.2 mg/dL (0.2-1.0); TOTAL PROTEIN 4.9 g/dL (6.4-8.2)
[2018-11-16 07:00] VITALS: BP 153/89
[2018-11-16] MEDS: SUCRALFATE 1 GM TABLET. PO SCH ×4 (07:32→20:42)
[2018-11-16] MEDS: ENOXAPARIN 40 MG/0.4 ML SYRINGE. SQ SCH ×2 (07:33→20:42)
[2018-11-16] MEDS: CARVEDILOL 3.125 MG TABLET. PO SCH ×2 (07:33→17:25)
[2018-11-16] MEDS: PANTOPRAZOLE 40 MG TABLET.DR. PO SCH ×2 (07:41→16:16)
[2018-11-16] MEDS: FOLIC ACID 1 MG TABLET. PO SCH (08:22)
[2018-11-16] MEDS: LURASIDONE 40 MG TABLET. PO SCH (08:22)
[2018-11-16] MEDS: LACTOBACILLUS RHAMNOSUS GG 1 CAPSULE. PO SCH ×2 (08:22→20:42)
[2018-11-16] MEDS: MAGNESIUM OXIDE 400 MG TABLET PO SCH (08:24)
[2018-11-16] MEDS: LOSARTAN POTASSIUM 50 MG TABLET. PO SCH (08:25)
[2018-11-16] MEDS: HYDROcodone/APAP 5/325MG 1 TAB TABLET PO PRN (08:43)
[2018-11-16] MEDS: ONDANSETRON PF 4 MG/2 ML VIAL. IV PRN ×2 (08:44→15:52)
[2018-11-16] MEDS: POLYETHYLENE GLYCOL 3350 17 GM PACKET. PO SCH (08:48)
[2018-11-16 11:00] VITALS: BP 133/100
--- NOTE | 2018-11-16 11:05 | PDOC ---
PULMONARY PROGRESS NOTES Subjective NOT MORE SOA Vitals Vital Signs Date Time Temp Pulse Resp B/P (MAP) Pulse Ox O2 Delivery O2 Flow Rate FiO2 11/16/18 09:43 16 Room Air 11/16/18 08:25 77 122/80 11/16/18 08:00 2.0 11/16/18 07:00 97.9 98 97.9 General: Alert, Lethargic Lungs: Clear Cardiovascular: S1, S2 Abdomen: Soft, Other (obese) Neuro Exam: Alert Extremities: Other (1+edema) Skin: Warm Labs Laboratory Tests Test 11/15/18 06:00 11/16/18 05:00 White Blood Count 4.3 x10^3/uL (4.0-11.0) 4.5 x10^3/uL (4.0-11.0) Red Blood Count 2.91 x10^6/uL (3.50-5.40) 2.87 x10^6/uL (3.50-5.40) Hemoglobin 8.7 g/dL (12.0-15.5) 8.6 g/dL (12.0-15.5) Hematocrit 26.9 % (36.0-47.0) 26.6 % (36.0-47.0) Mean Corpuscular Volume 93 fL (79-100) 93 fL (79-100) Mean Corpuscular Hemoglobin 30 pg (25-35) 30 pg (25-35) Mean Corpuscular Hemoglobin Concent 32 g/dL (31-37) 33 g/dL (31-37) Red Cell Distribution Width 17.3 % (11.5-14.5) 17.8 % (11.5-14.5) Platelet Count 274 x10^3/uL (140-400) 297 x10^3/uL (140-400) Neutrophils (%) (Auto) 24 % (31-73) 26 % (31-73) Lymphocytes (%) (Auto) 59 % (24-48) 61 % (24-48) Monocytes (%) (Auto) 15 % (0-9) 10 % (0-9) Eosinophils (%) (Auto) 1 % (0-3) 1 % (0-3) Basophils (%) (Auto) 2 % (0-3) 2 % (0-3) Neutrophils # (Auto) 1.0 x10^3uL (1.8-7.7) 1.2 x10^3uL (1.8-7.7) Lymphocytes # (Auto) 2.5 x10^3/uL (1.0-4.8) 2.7 x10^3/uL (1.0-4.8) Monocytes # (Auto) 0.6 x10^3/uL (0.0-1.1) 0.5 x10^3/uL (0.0-1.1) Eosinophils # (Auto) 0.0 x10^3/uL (0.0-0.7) 0.0 x10^3/uL (0.0-0.7) Basophils # (Auto) 0.1 x10^3/uL (0.0-0.2) 0.1 x10^3/uL (0.0-0.2) Sodium Level 143 mmol/L (136-145) 142 mmol/L (136-145) Potassium Level 3.5 mmol/L (3.5-5.1) 3.2 mmol/L (3.5-5.1) Chloride Level 111 mmol/L (98-107) 109 mmol/L (98-107) Carbon Dioxide Level 22 mmol/L (21-32) 21 mmol/L (21-32) Anion Gap 10 (6-14) 12 (6-14) Blood Urea Nitrogen 4 mg/dL (7-20) 1 mg/dL (7-20) Creatinine 0.4 mg/dL (0.6-1.0) 0.4 mg/dL (0.6-1.0) Estimated GFR (Cockcroft-Gault) 208.9 208.9 BUN/Creatinine Ratio 10 (6-20) 3 (6-20) Glucose Level 128 mg/dL (70-99) 146 mg/dL (70-99) Calcium Level 7.8 mg/dL (8.5-10.1) 7.7 mg/dL (8.5-10.1) Total Bilirubin 2.2 mg/dL (0.2-1.0) 2.2 mg/dL (0.2-1.0) Aspartate Amino Transf (AST/SGOT) 144 U/L (15-37) 135 U/L (15-37) Alanine Aminotransferase (ALT/SGPT) 68 U/L (14-59) 70 U/L (14-59) Alkaline Phosphatase 96 U/L (46-116) 95 U/L (46-116) Total Protein 4.9 g/dL (6.4-8.2) 4.9 g/dL (6.4-8.2) Albumin 1.5 g/dL (3.4-5.0) 1.5 g/dL (3.4-5.0) Albumin/Globulin Ratio 0.4 (1.0-1.7) 0.4 (1.0-1.7) Laboratory Tests Test 11/16/18 05:00 White Blood Count 4.5 x10^3/uL (4.0-11.0) Red Blood Count 2.87 x10^6/uL (3.50-5.40) Hemoglobin 8.6 g/dL (12.0-15.5) Hematocrit 26.6 % (36.0-47.0) Mean Corpuscular Volume 93 fL (79-100) Mean Corpuscular Hemoglobin 30 pg (25-35) Mean Corpuscular Hemoglobin Concent 33 g/dL (31-37) Red Cell Distribution Width 17.8 % (11.5-14.5) Platelet Count 297 x10^3/uL (140-400) Neutrophils (%) (Auto) 26 % (31-73) Lymphocytes (%) (Auto) 61 % (24-48) Monocytes (%) (Auto) 10 % (0-9) Eosinophils (%) (Auto) 1 % (0-3) Basophils (%) (Auto) 2 % (0-3) Neutrophils # (Auto) 1.2 x10^3uL (1.8-7.7) Lymphocytes # (Auto) 2.7 x10^3/uL (1.0-4.8) Monocytes # (Auto) 0.5 x10^3/uL (0.0-1.1) Eosinophils # (Auto) 0.0 x10^3/uL (0.0-0.7) Basophils # (Auto) 0.1 x10^3/uL (0.0-0.2) Sodium Level 142 mmol/L (136-145) Potassium Level 3.2 mmol/L (3.5-5.1) Chloride Level 109 mmol/L (98-107) Carbon Dioxide Level 21 mmol/L (21-32) Anion Gap 12 (6-14) Blood Urea Nitrogen 1 mg/dL (7-20) Creatinine 0.4 mg/dL (0.6-1.0) Estimated GFR (Cockcroft-Gault) 208.9 BUN/Creatinine Ratio 3 (6-20) Glucose Level 146 mg/dL (70-99) Calcium Level 7.7 mg/dL (8.5-10.1) Total Bilirubin 2.2 mg/dL (0.2-1.0) Aspartate Amino Transf (AST/SGOT) 135 U/L (15-37) Alanine Aminotransferase (ALT/SGPT) 70 U/L (14-59) Alkaline Phosphatase 95 U/L (46-116) Total Protein 4.9 g/dL (6.4-8.2) Albumin 1.5 g/dL (3.4-5.0) Albumin/Globulin Ratio 0.4 (1.0-1.7) Medications Active Scripts Medications Dose Route/Sig Max Daily Dose Days Date Category Cozaar (Losartan Potassium) 50 Mg Tablet 100 Mg PO DAILY 30 07/05/18 Rx Carafate (Sucralfate) 1 Gm Tablet 1 Gm PO QIDACHS 04/21/18 Rx [Pantoprazole] 40 MG Tablet.dr 40 Mg PO BIDAC 04/21/18 Rx Carvedilol 3.125 Mg Tablet 3.125 Mg PO BIDWMEALS 04/18/18 Reported Xarelto (Rivaroxaban) 20 Mg Tablet 20 Mg PO DAILY 04/18/18 Reported Latuda (Lurasidone Hcl) 40 Mg Tablet 40 Mg PO DAILY 04/18/18 Reported Vitamin D3 (Cholecalciferol (Vitamin D3)) 50,000 Unit Capsule 50,000 Unit PO WEEKLY 04/18/18 Reported Folic Acid 1 Mg Tablet 1 Mg PO DAILY 04/18/18 Reported Magnesium Oxide 400 Mg Tablet 250 Mg PO DAILY 04/18/18 Reported Impression . 1. The patient with history of pulmonary embolism and deep venous thrombosis, now comes in with chest pain, which is probably related to her anastomotic ulcer. The CT angiogram and V/Q scan have been reviewed and do not show any new blood clot. The CTA shows chronic linear clot and the V/Q scan shows mismatched defect in the left lower lobe. The venous Doppler shows nonocclusive thrombus. 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 We need to closely monitor for any anemia or bleeding while on anticoagulation. 2. No history of hypercoagulable state. 3. Morbid obesity with decreased ambulation. 4. Loss of appetite secondary to ulcer, resulting in decreased oral intake. 5. s/p EGD/ small bowel series/ healed anastomotic ulcer 6. Narcotic seeking Plan . RESP STATUS IS COMPENSATED WILL CONTINUE THE SAME D/W GI BRIDGE WITH LOVENOX OR HEPARIN FOR PROCEDURE XARELTO FOLLOW UP AT REGARDING THE DURATION OF ANTICOAGULATION KASI WORKMAN MD Nov 16, 2018 11:05
--- NOTE | 2018-11-16 11:37 | NUR ---
SW following pt. Spoke with Cherry at and they are not able to take pt today as pt has to come back for a liver biopsy on Tuesday. Discussed with RN.
--- NOTE | 2018-11-16 11:53 | PDOC ---
Subjective: Subjective: Says she ate lunch yesterday but doesn't want eggs for breakfast. Feels the same. Objective: Vital Signs: Vital Signs Date Time Temp Pulse Resp B/P (MAP) Pulse Ox O2 Delivery O2 Flow Rate FiO2 11/16/18 11:00 97.5 84 15 133/100 (111) 100 Room Air 97.5 11/16/18 08:00 2.0 Labs: Laboratory Tests Test 11/16/18 05:00 White Blood Count 4.5 x10^3/uL Red Blood Count 2.87 x10^6/uL Hemoglobin 8.6 g/dL Hematocrit 26.6 % Mean Corpuscular Volume 93 fL Mean Corpuscular Hemoglobin 30 pg Mean Corpuscular Hemoglobin Concent 33 g/dL Red Cell Distribution Width 17.8 % Platelet Count 297 x10^3/uL Neutrophils (%) (Auto) 26 % Lymphocytes (%) (Auto) 61 % Monocytes (%) (Auto) 10 % Eosinophils (%) (Auto) 1 % Basophils (%) (Auto) 2 % Neutrophils # (Auto) 1.2 x10^3uL Lymphocytes # (Auto) 2.7 x10^3/uL Monocytes # (Auto) 0.5 x10^3/uL Eosinophils # (Auto) 0.0 x10^3/uL Basophils # (Auto) 0.1 x10^3/uL Sodium Level 142 mmol/L Potassium Level 3.2 mmol/L Chloride Level 109 mmol/L Carbon Dioxide Level 21 mmol/L Anion Gap 12 Blood Urea Nitrogen 1 mg/dL Creatinine 0.4 mg/dL Estimated GFR (Cockcroft-Gault) 208.9 BUN/Creatinine Ratio 3 Glucose Level 146 mg/dL Calcium Level 7.7 mg/dL Total Bilirubin 2.2 mg/dL Aspartate Amino Transf (AST/SGOT) 135 U/L Alanine Aminotransferase (ALT/SGPT) 70 U/L Alkaline Phosphatase 95 U/L Total Protein 4.9 g/dL Albumin 1.5 g/dL Albumin/Globulin Ratio 0.4 PE: GEN: NAD LUNGS: CTAB HEART: RRR ABD: NABS, S/ND/NT NEURO/PSYCH: A & O 3, flat A/P: Anorexia, chronic pain, depression Abnormal LFTs (stable), iron studies, and HFE test S/p [id number] H/o PE/DVTs -- Liver biopsy planned for Tuesday as d/w Dr. Taylor - on Lovenox instead of Xarelto for now. I opened her Glucerna and handed it to her and raised the head of her bed. Seems she CAN eat but she does not seem motivated to do anything for herself. SHAMIR DAMON Nov 16, 2018 11:53
--- NOTE | 2018-11-16 12:13 | PDOC ---
PROGRESS NOTES Chief Complaint Chief Complaint Transaminitis most likely secondary to steatohepatitis Chest pain acute coronary syndrome ruled out UTI: 5-10WBC, positive nitrite and LE History of pulmonary embolism last year Old thrombus noted, back on anticoagulation linear filling defects in the bilateral pulmonary arteries which could be secondary to old recanalized embolus. 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 Non adherence to PPI and carafate for ulcer treatment Inability to tolerate PO well persists History of IVC filter placement Obesity with BMI of 34 Mild bilirubinemia Hypokalemia and hyponatremia as a consequence of her poor oral intake, on replacement intractable nausea persists hypertension, suboptimal control History of Present Illness History of Present Illness She has no complaints No father or family at bedside Planned for [facility] on Tuesday after liver biopsy Tuesday Patient on Xarelto, hx of PE with IVC filter (at ). AST/ALT remain elevated. GI following. PLAN: c p.m. liver biopsy on Tuesday [facility] on discharge Vitals Vitals Vital Signs Date Time Temp Pulse Resp B/P (MAP) Pulse Ox O2 Delivery O2 Flow Rate FiO2 11/16/18 11:00 97.5 84 15 133/100 (111) 100 Room Air 97.5 11/16/18 08:00 2.0 Physical Exam General: Alert, Oriented X3, Cooperative, mild distress (nausea) Heart: Regular rate (SR), Normal S1, Normal S2, No murmurs, Other (2/6 systolic murmur to LLS border) Lungs: Clear Abdomen: Normal bowel sounds, Soft, No tenderness Extremities: No clubbing, No cyanosis, No edema Skin: No rashes, No significant lesion Labs LABS Laboratory Tests Test 11/16/18 05:00 White Blood Count 4.5 x10^3/uL (4.0-11.0) Red Blood Count 2.87 x10^6/uL (3.50-5.40) Hemoglobin 8.6 g/dL (12.0-15.5) Hematocrit 26.6 % (36.0-47.0) Mean Corpuscular Volume 93 fL (79-100) Mean Corpuscular Hemoglobin 30 pg (25-35) Mean Corpuscular Hemoglobin Concent 33 g/dL (31-37) Red Cell Distribution Width 17.8 % (11.5-14.5) Platelet Count 297 x10^3/uL (140-400) Neutrophils (%) (Auto) 26 % (31-73) Lymphocytes (%) (Auto) 61 % (24-48) Monocytes (%) (Auto) 10 % (0-9) Eosinophils (%) (Auto) 1 % (0-3) Basophils (%) (Auto) 2 % (0-3) Neutrophils # (Auto) 1.2 x10^3uL (1.8-7.7) Lymphocytes # (Auto) 2.7 x10^3/uL (1.0-4.8) Monocytes # (Auto) 0.5 x10^3/uL (0.0-1.1) Eosinophils # (Auto) 0.0 x10^3/uL (0.0-0.7) Basophils # (Auto) 0.1 x10^3/uL (0.0-0.2) Sodium Level 142 mmol/L (136-145) Potassium Level 3.2 mmol/L (3.5-5.1) Chloride Level 109 mmol/L (98-107) Carbon Dioxide Level 21 mmol/L (21-32) Anion Gap 12 (6-14) Blood Urea Nitrogen 1 mg/dL (7-20) Creatinine 0.4 mg/dL (0.6-1.0) Estimated GFR (Cockcroft-Gault) 208.9 BUN/Creatinine Ratio 3 (6-20) Glucose Level 146 mg/dL (70-99) Calcium Level 7.7 mg/dL (8.5-10.1) Total Bilirubin 2.2 mg/dL (0.2-1.0) Aspartate Amino Transf (AST/SGOT) 135 U/L (15-37) Alanine Aminotransferase (ALT/SGPT) 70 U/L (14-59) Alkaline Phosphatase 95 U/L (46-116) Total Protein 4.9 g/dL (6.4-8.2) Albumin 1.5 g/dL (3.4-5.0) Albumin/Globulin Ratio 0.4 (1.0-1.7) Review of Systems Review of Systems A 14 point ROS was completed with the following noted as positive: Other systems reviewed and negative. \CONSTITUTIONAL: No fever or chills EYES: No recent changes SKIN: No rash or itching CARDIOVASCULAR: No chest pain, syncope, palpitations, or edema RESPIRATORY: No SOB or cough GASTROINTESTINAL: No nausea, vomiting or abdominal pain NEUROLOGICAL: No headaches or weakness ENDOCRINE: No cold or heat intolerance GENITOURINARY: No urgency or frequency of urination MUSCULOSKELETAL: No back pain or joint pain LYMPHATICS: No enlarged lymph nodes PSYCHIATRIC: No anxiety or depression Assessment and Plan Assessmemt and Plan Problems Medical Problems: (1) Chest pain Status: Acute (2) Elevated bilirubin Status: Acute Comment Review of Relevant I have reviewed the following items leo (where applicable) has been applied. Labs Laboratory Tests Test 11/15/18 06:00 11/16/18 05:00 White Blood Count 4.3 x10^3/uL (4.0-11.0) 4.5 x10^3/uL (4.0-11.0) Red Blood Count 2.91 x10^6/uL (3.50-5.40) 2.87 x10^6/uL (3.50-5.40) Hemoglobin 8.7 g/dL (12.0-15.5) 8.6 g/dL (12.0-15.5) Hematocrit 26.9 % (36.0-47.0) 26.6 % (36.0-47.0) Mean Corpuscular Volume 93 fL (79-100) 93 fL (79-100) Mean Corpuscular Hemoglobin 30 pg (25-35) 30 pg (25-35) Mean Corpuscular Hemoglobin Concent 32 g/dL (31-37) 33 g/dL (31-37) Red Cell Distribution Width 17.3 % (11.5-14.5) 17.8 % (11.5-14.5) Platelet Count 274 x10^3/uL (140-400) 297 x10^3/uL (140-400) Neutrophils (%) (Auto) 24 % (31-73) 26 % (31-73) Lymphocytes (%) (Auto) 59 % (24-48) 61 % (24-48) Monocytes (%) (Auto) 15 % (0-9) 10 % (0-9) Eosinophils (%) (Auto) 1 % (0-3) 1 % (0-3) Basophils (%) (Auto) 2 % (0-3) 2 % (0-3) Neutrophils # (Auto) 1.0 x10^3uL (1.8-7.7) 1.2 x10^3uL (1.8-7.7) Lymphocytes # (Auto) 2.5 x10^3/uL (1.0-4.8) 2.7 x10^3/uL (1.0-4.8) Monocytes # (Auto) 0.6 x10^3/uL (0.0-1.1) 0.5 x10^3/uL (0.0-1.1) Eosinophils # (Auto) 0.0 x10^3/uL (0.0-0.7) 0.0 x10^3/uL (0.0-0.7) Basophils # (Auto) 0.1 x10^3/uL (0.0-0.2) 0.1 x10^3/uL (0.0-0.2) Sodium Level 143 mmol/L (136-145) 142 mmol/L (136-145) Potassium Level 3.5 mmol/L (3.5-5.1) 3.2 mmol/L (3.5-5.1) Chloride Level 111 mmol/L (98-107) 109 mmol/L (98-107) Carbon Dioxide Level 22 mmol/L (21-32) 21 mmol/L (21-32) Anion Gap 10 (6-14) 12 (6-14) Blood Urea Nitrogen 4 mg/dL (7-20) 1 mg/dL (7-20) Creatinine 0.4 mg/dL (0.6-1.0) 0.4 mg/dL (0.6-1.0) Estimated GFR (Cockcroft-Gault) 208.9 208.9 BUN/Creatinine Ratio 10 (6-20) 3 (6-20) Glucose Level 128 mg/dL (70-99) 146 mg/dL (70-99) Calcium Level 7.8 mg/dL (8.5-10.1) 7.7 mg/dL (8.5-10.1) Total Bilirubin 2.2 mg/dL (0.2-1.0) 2.2 mg/dL (0.2-1.0) Aspartate Amino Transf (AST/SGOT) 144 U/L (15-37) 135 U/L (15-37) Alanine Aminotransferase (ALT/SGPT) 68 U/L (14-59) 70 U/L (14-59) Alkaline Phosphatase 96 U/L (46-116) 95 U/L (46-116) Total Protein 4.9 g/dL (6.4-8.2) 4.9 g/dL (6.4-8.2) Albumin 1.5 g/dL (3.4-5.0) 1.5 g/dL (3.4-5.0) Albumin/Globulin Ratio 0.4 (1.0-1.7) 0.4 (1.0-1.7) Laboratory Tests Test 11/16/18 05:00 White Blood Count 4.5 x10^3/uL (4.0-11.0) Red Blood Count 2.87 x10^6/uL (3.50-5.40) Hemoglobin 8.6 g/dL (12.0-15.5) Hematocrit 26.6 % (36.0-47.0) Mean Corpuscular Volume 93 fL (79-100) Mean Corpuscular Hemoglobin 30 pg (25-35) Mean Corpuscular Hemoglobin Concent 33 g/dL (31-37) Red Cell Distribution Width 17.8 % (11.5-14.5) Platelet Count 297 x10^3/uL (140-400) Neutrophils (%) (Auto) 26 % (31-73) Lymphocytes (%) (Auto) 61 % (24-48) Monocytes (%) (Auto) 10 % (0-9) Eosinophils (%) (Auto) 1 % (0-3) Basophils (%) (Auto) 2 % (0-3) Neutrophils # (Auto) 1.2 x10^3uL (1.8-7.7) Lymphocytes # (Auto) 2.7 x10^3/uL (1.0-4.8) Monocytes # (Auto) 0.5 x10^3/uL (0.0-1.1) Eosinophils # (Auto) 0.0 x10^3/uL (0.0-0.7) Basophils # (Auto) 0.1 x10^3/uL (0.0-0.2) Sodium Level 142 mmol/L (136-145) Potassium Level 3.2 mmol/L (3.5-5.1) Chloride Level 109 mmol/L (98-107) Carbon Dioxide Level 21 mmol/L (21-32) Anion Gap 12 (6-14) Blood Urea Nitrogen 1 mg/dL (7-20) Creatinine 0.4 mg/dL (0.6-1.0) Estimated GFR (Cockcroft-Gault) 208.9 BUN/Creatinine Ratio 3 (6-20) Glucose Level 146 mg/dL (70-99) Calcium Level 7.7 mg/dL (8.5-10.1) Total Bilirubin 2.2 mg/dL (0.2-1.0) Aspartate Amino Transf (AST/SGOT) 135 U/L (15-37) Alanine Aminotransferase (ALT/SGPT) 70 U/L (14-59) Alkaline Phosphatase 95 U/L (46-116) Total Protein 4.9 g/dL (6.4-8.2) Albumin 1.5 g/dL (3.4-5.0) Albumin/Globulin Ratio 0.4 (1.0-1.7) Microbiology 11/06/18 Urine Culture - Final, Complete 11/06/18 Urine Culture Result 1 ([facility]) - Final, Complete 11/06/18 Antimicrobic Susceptibility - Final, Complete Medications Current Medications Aspirin (Children'S Aspirin) 324 mg 1X ONCE PO Last administered on 11/06/18at 10:44; Start 11/06/18 at 09:15; Stop 11/06/18 at 09:18; Status DC Morphine Sulfate (Morphine Sulfate) 4 mg PRN Q15MIN PRN IV/SQ PAIN GREATER THAN 3/10 Last administered on 11/06/18at 13:14; Start 11/06/18 at 09:15; Stop at 09:14; Status DC Ondansetron HCl (Zofran) 4 mg 1X ONCE IV Last administered on 11/06/18at 10:44 ; Start 11/06/18 at 09:15; Stop 11/06/18 at 09:18; Status DC Iohexol (Omnipaque 350 Mg/ml) 100 ml 1X ONCE IV Last administered on at 22:00; Start 11/06/18 at 11:30; Stop 11/06/18 at 11:33; Status DC Info (CONTRAST GIVEN -- Rx MONITORING) 1 each PRN DAILY PRN MC SEE COMMENTS; Start 11/06/18 at 11:45; Stop 11/08/18 at 11:44; Status DC Levofloxacin/ Dextrose 100 ml @ 100 mls/hr 1X ONCE IV Last administered on 15:30; Start 11/06/18 at 13:15; Stop 11/06/18 at 14:14; Status DC Ondansetron HCl (Zofran) 4 mg PRN Q4HRS PRN IV NAUSEA/VOMITING Last administered on 11/16/18 08:44; Start 11/06/18 at 13:30 Zolpidem Tartrate (Ambien) 5 mg PRN QHS PRN PO INSOMNIA Last administered on 20:48; Start 11/06/18 at 13:30 Acetaminophen (Tylenol) 650 mg PRN Q4HRS PRN PO TEMP OVER 100.4F OR MILD PAIN Last administered on 11/06/18 17:10; Start 11/06/18 at 13:30 Al Hydroxide/Mg Hydroxide (Mylanta Plus Xs) 30 ml PRN DAILY PRN PO HEARTBURN / GAS; Start 11/06/18 at 13:30 Clonidine HCl (Catapres) 0.1 mg PRN Q6HRS PRN PO SBP>160 OR DBP>90 Last administered on 11/15/18 20:27; Start 11/06/18 at 13:30 Diphenhydramine HCl (Benadryl) 25 mg PRN Q4HRS PRN IVP ITCHING; Start 11/06/18 at 13:30 Docusate Sodium (Colace) 100 mg PRN BID PRN PO HARD STOOLS Last administered on 11/13/18 08:06; Start 11/06/18 at 13:30 Albuterol Sulfate (Ventolin Neb Soln) 2.5 mg PRN Q4HRS PRN NEB SHORTNESS OF BREATH Last administered on 11/12/18 08:08; Start 11/06/18 at 13:30 Guaifenesin (Robitussin) 200 mg PRN Q4HRS PRN PO COUGH Last administered on 20:24; Start 11/06/18 at 13:30 Lorazepam (Ativan) 0.5 mg PRN Q4HRS PRN PO ANXIETY / AGITATION; Start 11/06/18 at 13:30 Carvedilol (Coreg) 3.125 mg BIDWMEALS PO Last administered on 11/16/18 07:33; Start 11/06/18 at 17:00 Folic Acid (Folic Acid) 1 mg DAILY PO Last administered on 11/16/18 08:22; Start 11/06/18 at 15:00 Losartan Potassium (Cozaar) 100 mg DAILY PO Last administered on 11/16/18 08: 25; Start 11/06/18 at 15:00 Lurasidone HCl (Latuda) 40 mg DAILY PO Last administered on 11/16/18 08:22; Start 11/06/18 at 15:00 Ergocalciferol (Vitamin D2) 50,000 unit WEEKLY PO Last administered on 08:07; Start 11/06/18 at 15:00 Magnesium Oxide (Magnesium Oxide) 200 mg DAILY PO Last administered on 08:24; Start 11/06/18 at 15:00 Rivaroxaban (Xarelto) 20 mg DAILYWSUP PO ; Start 11/06/18 at 17:00; Stop at 17:00; Status DC Sucralfate (Carafate) 1 gm QIDACHS PO Last administered on 11/16/18 07:32; Start 11/06/18 at 16:30 Pantoprazole Sodium (Protonix) 40 mg BIDAC PO Last administered on 11/16/18 07 :41; Start 11/06/18 at 16:30 Info (Anti-Coagulation Monitoring By Pharmacy) 1 each PRN DAILY PRN MC SEE COMMENTS Last administered on 11/07/18 10:59; Start 11/06/18 at 14:15 Potassium Chloride (KCl Oral Soln) 20 meq 1X ONCE PEG Last administered on 17:09; Start 11/06/18 at 15:00; Stop 11/06/18 at 15:01; Status DC Heparin Sodium/ Dextrose 500 ml @ 0 mls/hr CONT PRN IV SEE I/O RECORD; Start at 16:30; Status UNV Heparin Sodium (Porcine) (Heparin Sodium) 6,600 unit 1X ONCE IV Last administered on 11/06/18 17:20; Start 11/06/18 at 16:30; Stop 11/07/18 at 09:48 ; Status DC Heparin Sodium/ Dextrose 500 ml @ 0 mls/hr CONT PRN IV SEE I/O RECORD Last administered on 11/06/18at 17:32; Start 11/06/18 at 16:30; Stop 11/07/18 at 09:48 ; Status DC Heparin Sodium (Porcine) (Heparin Sodium) 2,500 unit PRN Q6HRS PRN IV FOR UFH LEVEL LESS THAN 0.2; Start 11/06/18 at 16:30; Stop 11/07/18 at 09:48; Status DC Heparin Sodium (Porcine) (Heparin Sodium) 1,200 unit PRN Q6HRS PRN IV FOR UFH LEVEL 0.2 - 0.29; Start 11/06/18 at 16:30; Stop 11/07/18 at 09:48; Status DC Morphine Sulfate (Morphine Sulfate) 2 mg Q3HRS PRN IV PAIN Last administered on 11/14/18 08:23; Start 11/06/18 at 19:30 Iohexol (Omnipaque 350 Mg/ml) 100 ml STK-MED ONCE .ROUTE ; Start 11/07/18 at 02: 38; Stop 11/07/18 at 02:39; Status DC Rivaroxaban (Xarelto) 20 mg DAILYWSUP PO Last administered on 11/14/18 16:49; Start 11/07/18 at 10:00; Stop 11/15/18 at 14:03; Status DC Bisacodyl (Dulcolax Tab) 5 mg 1X ONCE PO Last administered on 11/07/18 13:40 ; Start 11/07/18 at 14:00; Stop 11/07/18 at 14:01; Status DC Polyethylene Glycol (miraLAX PACKET) 17 gm DAILY PO Last administered on 08:48; Start 11/07/18 at 14:00 Midazolam HCl (Versed) 2 mg PRN 1X PRN IV PRIOR TO PROCEDURE; Start 11/08/18 at 09:30; Stop 11/09/18 at 09:29; Status DC Ringer's Solution 1,000 ml @ 125 mls/hr Q8H IV Last administered on 11/08/18at 09:28; Start 11/08/18 at 09:24; Stop 11/08/18 at 21:23; Status DC Lidocaine HCl (Xylocaine-Mpf 1% 2ml Vial) 2 ml 1X PRN PRN ID IV START; Start at 09:30; Stop 11/09/18 at 09:29; Status DC Barium Sulfate (Liquid E-Z Paque) 711 ml 1X ONCE PO Last administered on at 10:15; Start 11/08/18 at 10:15; Stop 11/08/18 at 10:17; Status DC Ciprofloxacin (Cipro) 500 mg BID PO Last administered on 11/10/18at 08:32; Start 11/08/18 at 15:00; Stop 11/10/18 at 14:17; Status DC Iohexol (Omnipaque 300 Mg/ml) 70 ml 1X ONCE IV Last administered on 11/08/18at 08:36; Start 11/08/18 at 17:15; Stop 11/08/18 at 17:16; Status DC Info (CONTRAST GIVEN -- Rx MONITORING) 1 each PRN DAILY PRN MC SEE COMMENTS; Start 11/08/18 at 17:15; Stop 11/10/18 at 17:14; Status DC Lactobacillus Rhamnosus (Culturelle) 1 cap BID PO Last administered on at 08:22; Start 11/09/18 at 09:00 Potassium Chloride (Klor-Con) 40 meq 1X ONCE PO Last administered on at 18:15; Start 11/09/18 at 19:00; Stop 11/09/18 at 19:01; Status DC Potassium Chloride (Klor-Con) 40 meq 1X ONCE PO Last administered on at 15:02; Start 11/10/18 at 15:00; Stop 11/10/18 at 15:01; Status DC Meropenem 500 mg/ Sodium Chloride 50 ml @ 100 mls/hr Q8HRS IV Last administered on 11/16/18at 04:50; Start 11/10/18 at 15:00 Potassium Chloride (Klor-Con) 40 meq 1X ONCE PO Last administered on at 11:32; Start 11/12/18 at 11:00; Stop 11/12/18 at 11:01; Status DC Acetaminophen/ Hydrocodone Bitart (Lortab 5/325) 1 tab PRN Q4HRS PRN PO SEVERE PAIN Last administered on 11/16/18 08:43; Start 11/12/18 at 11:00 Magnesium Hydroxide (Milk Of Magnesia) 2,400 mg PRN DAILY PRN PO CONSTIPATION Last administered on 11/14/18 11:10; Start 11/12/18 at 11:00 Bisacodyl (Dulcolax Supp) 10 mg PRN DAILY PRN WI CONSTIPATION Last administered on 11/12/18 13:07; Start 11/12/18 at 11:00 Tramadol HCl (Ultram) 50 mg PRN Q6HRS PRN PO MODERATE PAIN Last administered on 11/14/18 16:52; Start 11/14/18 at 11:15 Enoxaparin Sodium (Lovenox 40mg Syringe) 40 mg BID SQ Last administered on 11/16 07:33; Start 11/15/18 at 21:00 Active Scripts Active Cozaar (Losartan Potassium) 50 Mg Tablet 100 Mg PO DAILY 30 Days Carafate (Sucralfate) 1 Gm Tablet 1 Gm PO QIDACHS [Pantoprazole] 40 MG Tablet.dr 40 Mg PO BIDAC Reported Carvedilol 3.125 Mg Tablet 3.125 Mg PO BIDWMEALS Xarelto (Rivaroxaban) 20 Mg Tablet 20 Mg PO DAILY Latuda (Lurasidone Hcl) 40 Mg Tablet 40 Mg PO DAILY Vitamin D3 (Cholecalciferol (Vitamin D3)) 50,000 Unit Capsule 50,000 Unit PO WEEKLY Folic Acid 1 Mg Tablet 1 Mg PO DAILY Magnesium Oxide 400 Mg Tablet 250 Mg PO DAILY Vitals/I & O Vital Sign - Last 24 Hours 11/15/18 11/15/18 11/15/18 11/15/18 15:03 16:19 17:11 19:00 Temp 98.3 98.6 98.3 98.6 Pulse 90 90 97 Resp 20 16 18 B/P (MAP) 147/192 (177) 147/192 172/70 (104) Pulse Ox 97 97 96 O2 Delivery Room Air Room Air Room Air O2 Flow Rate 2.0 11/15/18 11/15/18 11/15/18 11/16/18 19:50 20:27 22:58 02:55 Temp 98.0 98.0 98.0 98.0 Pulse 97 56 77 Resp 18 18 B/P (MAP) 172/70 96/67 (77) 122/80 (94) Pulse Ox 100 97 O2 Delivery Room Air Room Air Room Air O2 Flow Rate 2.0 2.0 11/16/18 11/16/18 11/16/18 11/16/18 07:00 07:33 08:00 08:25 Temp 97.9 97.9 Pulse 80 77 77 Resp 16 B/P (MAP) 153/89 (110) 122/80 122/80 Pulse Ox 98 O2 Delivery Room Air Room Air O2 Flow Rate 2.0 11/16/18 11/16/18 11/16/18 08:43 09:43 11:00 Temp 97.5 97.5 Pulse 84 Resp 18 16 15 B/P (MAP) 133/100 (111) Pulse Ox 100 O2 Delivery Room Air Room Air Room Air Intake and Output 11/15/18 11/15/18 11/16/18 15:00 23:00 07:00 Intake Total 730 ml 540 ml 50 ml Balance 730 ml 540 ml 50 ml Nutrition Consultation Dietary Evaluation: Recommendations by RD: Protein supplementation Comments: continue cardiac/ADA diet per pmhx change Glucerna TID to q day per pt request Expected Outcomes/Goals: PO intake to meet >75% est needs- goal ongoing Interpretation of weight loss: >5% in 1 month Malnutrition Findings: Food and Nutrition Intake (Mod: <75% est energy req 7days Weight Status: Obese JIM HINDS MD Nov 16, 2018 12:13
[2018-11-16] MEDS: ANTI-COAG MONITOR BY PHARMACY. MC PRN (13:33)
[2018-11-16 15:00] VITALS: BP 148/96
[2018-11-16] MEDS: guaiFENesin ORAL 200 MG/10 ML LIQUID. PO PRN (18:25)
[2018-11-16 19:00] VITALS: BP 112/76
[2018-11-16 23:00] VITALS: BP 111/71
[2018-11-17 03:00] VITALS: BP 110/75
[2018-11-17] MEDS: MEROPENEM 500 MG in IV NORMAL SALINE 50ML 50 ML IV SCH ×3 (05:38→22:01)
[2018-11-17 05:52] LABS: BASO # 0.1 x10^3/uL (0.0-0.2); BASO % 1 % (0-3); EOS # 0.1 x10^3/uL (0.0-0.7); EOS % 2 % (0-3); HEMATOCRIT 25.5 % (36.0-47.0); HEMOGLOBIN 8.5 g/dL (12.0-15.5); LYMPH # 2.8 x10^3/uL (1.0-4.8); LYMPH % 65 % (24-48); MEAN CORPUSCULAR HEMOGLOBIN 31 pg (25-35); MEAN CORPUSCULAR HGB CONC 33 g/dL (31-37); MEAN CORPUSCULAR VOLUME 92 fL (79-100); MONO # 0.4 x10^3/uL (0.0-1.1); MONO % 8 % (0-9); NEUT # 1.1 x10^3uL (1.8-7.7); NEUT % 25 % (31-73); PLATELET COUNT 327 x10^3/uL (140-400); RED BLOOD COUNT 2.78 x10^6/uL (3.50-5.40); RED CELL DISTRIBUTION WIDTH 17.8 % (11.5-14.5); WHITE BLOOD COUNT 4.3 x10^3/uL (4.0-11.0)
[2018-11-17 06:15] LABS: ALBUMIN 1.6 g/dL (3.4-5.0); ALBUMIN/GLOBULIN RATIO 0.5 (1.0-1.7); CREATININE 0.5 mg/dL (0.6-1.0); GFR 161.4; POTASSIUM 3.3 mmol/L (3.5-5.1); TOTAL BILIRUBIN 2.1 mg/dL (0.2-1.0); TOTAL PROTEIN 4.9 g/dL (6.4-8.2)
[2018-11-17 07:00] VITALS: BP 126/87
[2018-11-17] MEDS: SUCRALFATE 1 GM TABLET. PO SCH ×4 (08:29→22:01)
[2018-11-17] MEDS: CARVEDILOL 3.125 MG TABLET. PO SCH ×2 (08:30→16:43)
[2018-11-17] MEDS: PANTOPRAZOLE 40 MG TABLET.DR. PO SCH ×2 (08:30→16:43)
[2018-11-17] MEDS: POLYETHYLENE GLYCOL 3350 17 GM PACKET. PO SCH (08:31)
[2018-11-17] MEDS: ENOXAPARIN 40 MG/0.4 ML SYRINGE. SQ SCH ×2 (08:31→22:01)
--- NOTE | 2018-11-17 09:33 | PDOC ---
PULMONARY PROGRESS NOTES Subjective NOT MORE SOA Vitals Vital Signs Date Time Temp Pulse Resp B/P (MAP) Pulse Ox O2 Delivery O2 Flow Rate FiO2 11/17/18 08:30 79 126/87 11/17/18 08:00 Room Air 11/17/18 07:00 98.2 16 99 98.2 11/16/18 08:00 2.0 General: Alert, Lethargic Lungs: Clear Cardiovascular: S1, S2 Abdomen: Soft, Other (obese) Neuro Exam: Alert Extremities: Other (1+edema) Skin: Warm Labs Laboratory Tests Test 11/16/18 05:00 11/17/18 05:35 White Blood Count 4.5 x10^3/uL (4.0-11.0) 4.3 x10^3/uL (4.0-11.0) Red Blood Count 2.87 x10^6/uL (3.50-5.40) 2.78 x10^6/uL (3.50-5.40) Hemoglobin 8.6 g/dL (12.0-15.5) 8.5 g/dL (12.0-15.5) Hematocrit 26.6 % (36.0-47.0) 25.5 % (36.0-47.0) Mean Corpuscular Volume 93 fL (79-100) 92 fL (79-100) Mean Corpuscular Hemoglobin 30 pg (25-35) 31 pg (25-35) Mean Corpuscular Hemoglobin Concent 33 g/dL (31-37) 33 g/dL (31-37) Red Cell Distribution Width 17.8 % (11.5-14.5) 17.8 % (11.5-14.5) Platelet Count 297 x10^3/uL (140-400) 327 x10^3/uL (140-400) Neutrophils (%) (Auto) 26 % (31-73) 25 % (31-73) Lymphocytes (%) (Auto) 61 % (24-48) 65 % (24-48) Monocytes (%) (Auto) 10 % (0-9) 8 % (0-9) Eosinophils (%) (Auto) 1 % (0-3) 2 % (0-3) Basophils (%) (Auto) 2 % (0-3) 1 % (0-3) Neutrophils # (Auto) 1.2 x10^3uL (1.8-7.7) 1.1 x10^3uL (1.8-7.7) Lymphocytes # (Auto) 2.7 x10^3/uL (1.0-4.8) 2.8 x10^3/uL (1.0-4.8) Monocytes # (Auto) 0.5 x10^3/uL (0.0-1.1) 0.4 x10^3/uL (0.0-1.1) Eosinophils # (Auto) 0.0 x10^3/uL (0.0-0.7) 0.1 x10^3/uL (0.0-0.7) Basophils # (Auto) 0.1 x10^3/uL (0.0-0.2) 0.1 x10^3/uL (0.0-0.2) Sodium Level 142 mmol/L (136-145) 141 mmol/L (136-145) Potassium Level 3.2 mmol/L (3.5-5.1) 3.3 mmol/L (3.5-5.1) Chloride Level 109 mmol/L (98-107) 108 mmol/L (98-107) Carbon Dioxide Level 21 mmol/L (21-32) 20 mmol/L (21-32) Anion Gap 12 (6-14) 13 (6-14) Blood Urea Nitrogen 1 mg/dL (7-20) 2 mg/dL (7-20) Creatinine 0.4 mg/dL (0.6-1.0) 0.5 mg/dL (0.6-1.0) Estimated GFR (Cockcroft-Gault) 208.9 161.4 BUN/Creatinine Ratio 3 (6-20) 4 (6-20) Glucose Level 146 mg/dL (70-99) 136 mg/dL (70-99) Calcium Level 7.7 mg/dL (8.5-10.1) 8.0 mg/dL (8.5-10.1) Total Bilirubin 2.2 mg/dL (0.2-1.0) 2.1 mg/dL (0.2-1.0) Aspartate Amino Transf (AST/SGOT) 135 U/L (15-37) 122 U/L (15-37) Alanine Aminotransferase (ALT/SGPT) 70 U/L (14-59) 70 U/L (14-59) Alkaline Phosphatase 95 U/L (46-116) 91 U/L (46-116) Total Protein 4.9 g/dL (6.4-8.2) 4.9 g/dL (6.4-8.2) Albumin 1.5 g/dL (3.4-5.0) 1.6 g/dL (3.4-5.0) Albumin/Globulin Ratio 0.4 (1.0-1.7) 0.5 (1.0-1.7) Laboratory Tests Test 11/17/18 05:35 White Blood Count 4.3 x10^3/uL (4.0-11.0) Red Blood Count 2.78 x10^6/uL (3.50-5.40) Hemoglobin 8.5 g/dL (12.0-15.5) Hematocrit 25.5 % (36.0-47.0) Mean Corpuscular Volume 92 fL (79-100) Mean Corpuscular Hemoglobin 31 pg (25-35) Mean Corpuscular Hemoglobin Concent 33 g/dL (31-37) Red Cell Distribution Width 17.8 % (11.5-14.5) Platelet Count 327 x10^3/uL (140-400) Neutrophils (%) (Auto) 25 % (31-73) Lymphocytes (%) (Auto) 65 % (24-48) Monocytes (%) (Auto) 8 % (0-9) Eosinophils (%) (Auto) 2 % (0-3) Basophils (%) (Auto) 1 % (0-3) Neutrophils # (Auto) 1.1 x10^3uL (1.8-7.7) Lymphocytes # (Auto) 2.8 x10^3/uL (1.0-4.8) Monocytes # (Auto) 0.4 x10^3/uL (0.0-1.1) Eosinophils # (Auto) 0.1 x10^3/uL (0.0-0.7) Basophils # (Auto) 0.1 x10^3/uL (0.0-0.2) Sodium Level 141 mmol/L (136-145) Potassium Level 3.3 mmol/L (3.5-5.1) Chloride Level 108 mmol/L (98-107) Carbon Dioxide Level 20 mmol/L (21-32) Anion Gap 13 (6-14) Blood Urea Nitrogen 2 mg/dL (7-20) Creatinine 0.5 mg/dL (0.6-1.0) Estimated GFR (Cockcroft-Gault) 161.4 BUN/Creatinine Ratio 4 (6-20) Glucose Level 136 mg/dL (70-99) Calcium Level 8.0 mg/dL (8.5-10.1) Total Bilirubin 2.1 mg/dL (0.2-1.0) Aspartate Amino Transf (AST/SGOT) 122 U/L (15-37) Alanine Aminotransferase (ALT/SGPT) 70 U/L (14-59) Alkaline Phosphatase 91 U/L (46-116) Total Protein 4.9 g/dL (6.4-8.2) Albumin 1.6 g/dL (3.4-5.0) Albumin/Globulin Ratio 0.5 (1.0-1.7) Medications Active Scripts Medications Dose Route/Sig Max Daily Dose Days Date Category Cozaar (Losartan Potassium) 50 Mg Tablet 100 Mg PO DAILY 30 07/05/18 Rx Carafate (Sucralfate) 1 Gm Tablet 1 Gm PO QIDACHS 04/21/18 Rx [Pantoprazole] 40 MG Tablet.dr 40 Mg PO BIDAC 04/21/18 Rx Carvedilol 3.125 Mg Tablet 3.125 Mg PO BIDWMEALS 04/18/18 Reported Xarelto (Rivaroxaban) 20 Mg Tablet 20 Mg PO DAILY 04/18/18 Reported Latuda (Lurasidone Hcl) 40 Mg Tablet 40 Mg PO DAILY 04/18/18 Reported Vitamin D3 (Cholecalciferol (Vitamin D3)) 50,000 Unit Capsule 50,000 Unit PO WEEKLY 04/18/18 Reported Folic Acid 1 Mg Tablet 1 Mg PO DAILY 04/18/18 Reported Magnesium Oxide 400 Mg Tablet 250 Mg PO DAILY 04/18/18 Reported Impression . 1. The patient with history of pulmonary embolism and deep venous thrombosis, now comes in with chest pain, which is probably related to her anastomotic ulcer. The CT angiogram and V/Q scan have been reviewed and do not show any new blood clot. The CTA shows chronic linear clot and the V/Q scan shows mismatched defect in the left lower lobe. The venous Doppler shows nonocclusive thrombus. 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 We need to closely monitor for any anemia or bleeding while on anticoagulation. 2. No history of hypercoagulable state. 3. Morbid obesity with decreased ambulation. 4. Loss of appetite secondary to ulcer, resulting in decreased oral intake. 5. s/p EGD/ small bowel series/ healed anastomotic ulcer 6. Narcotic seeking Plan . RESP STATUS IS COMPENSATED WILL CONTINUE THE SAME D/W GI BRIDGE WITH LOVENOX OR HEPARIN FOR PROCEDURE XARELTO FOLLOW UP AT REGARDING THE DURATION OF ANTICOAGULATION KASI WORKMAN MD Nov 17, 2018 09:33
[2018-11-17] MEDS: guaiFENesin ORAL 200 MG/10 ML LIQUID. PO PRN ×2 (09:34→16:43)
[2018-11-17] MEDS: LACTOBACILLUS RHAMNOSUS GG 1 CAPSULE. PO SCH ×2 (09:34→22:02)
[2018-11-17] MEDS: ONDANSETRON PF 4 MG/2 ML VIAL. IV PRN ×2 (09:34→19:21)
[2018-11-17] MEDS: MAGNESIUM HYDROXIDE 2,400 MG/30 ML ORAL.SUSP. PO PRN (09:34)
[2018-11-17] MEDS: FOLIC ACID 1 MG TABLET. PO SCH (09:34)
[2018-11-17] MEDS: LURASIDONE 40 MG TABLET. PO SCH (09:34)
[2018-11-17] MEDS: LOSARTAN POTASSIUM 50 MG TABLET. PO SCH (09:34)
[2018-11-17] MEDS: MAGNESIUM OXIDE 400 MG TABLET PO SCH (09:35)
[2018-11-17 11:00] VITALS: BP 125/89
--- NOTE | 2018-11-17 11:51 | PDOC ---
PROGRESS NOTES Chief Complaint Chief Complaint Transaminitis most likely secondary to steatohepatitis Chest pain acute coronary syndrome ruled out UTI: 5-10WBC, positive nitrite and LE History of pulmonary embolism last year Old thrombus noted, back on anticoagulation linear filling defects in the bilateral pulmonary arteries which could be secondary to old recanalized embolus. 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 Non adherence to PPI and carafate for ulcer treatment Inability to tolerate PO well persists History of IVC filter placement Obesity with BMI of 34 Mild bilirubinemia Hypokalemia and hyponatremia as a consequence of her poor oral intake, on replacement intractable nausea persists hypertension, suboptimal control History of Present Illness History of Present Illness She has no complaints No father or family at bedside Planned for [facility] on Tuesday after liver biopsy Tuesday Patient on Xarelto, hx of PE with IVC filter (at ). AST/ALT remain elevated. GI following. PLAN: c p.m. liver biopsy on Tuesday [facility] on discharge Vitals Vitals Vital Signs Date Time Temp Pulse Resp B/P (MAP) Pulse Ox O2 Delivery O2 Flow Rate FiO2 11/17/18 11:00 98.2 86 16 125/89 (101) 98 Room Air 98.2 11/16/18 08:00 2.0 Physical Exam General: Alert, Oriented X3, Cooperative, mild distress (nausea) Heart: Regular rate (SR), Normal S1, Normal S2, No murmurs, Other (2/6 systolic murmur to LLS border) Lungs: Clear Abdomen: Normal bowel sounds, Soft, No tenderness Extremities: No clubbing, No cyanosis, No edema Skin: No rashes, No significant lesion Labs LABS Laboratory Tests Test 11/17/18 05:35 White Blood Count 4.3 x10^3/uL (4.0-11.0) Red Blood Count 2.78 x10^6/uL (3.50-5.40) Hemoglobin 8.5 g/dL (12.0-15.5) Hematocrit 25.5 % (36.0-47.0) Mean Corpuscular Volume 92 fL (79-100) Mean Corpuscular Hemoglobin 31 pg (25-35) Mean Corpuscular Hemoglobin Concent 33 g/dL (31-37) Red Cell Distribution Width 17.8 % (11.5-14.5) Platelet Count 327 x10^3/uL (140-400) Neutrophils (%) (Auto) 25 % (31-73) Lymphocytes (%) (Auto) 65 % (24-48) Monocytes (%) (Auto) 8 % (0-9) Eosinophils (%) (Auto) 2 % (0-3) Basophils (%) (Auto) 1 % (0-3) Neutrophils # (Auto) 1.1 x10^3uL (1.8-7.7) Lymphocytes # (Auto) 2.8 x10^3/uL (1.0-4.8) Monocytes # (Auto) 0.4 x10^3/uL (0.0-1.1) Eosinophils # (Auto) 0.1 x10^3/uL (0.0-0.7) Basophils # (Auto) 0.1 x10^3/uL (0.0-0.2) Sodium Level 141 mmol/L (136-145) Potassium Level 3.3 mmol/L (3.5-5.1) Chloride Level 108 mmol/L (98-107) Carbon Dioxide Level 20 mmol/L (21-32) Anion Gap 13 (6-14) Blood Urea Nitrogen 2 mg/dL (7-20) Creatinine 0.5 mg/dL (0.6-1.0) Estimated GFR (Cockcroft-Gault) 161.4 BUN/Creatinine Ratio 4 (6-20) Glucose Level 136 mg/dL (70-99) Calcium Level 8.0 mg/dL (8.5-10.1) Total Bilirubin 2.1 mg/dL (0.2-1.0) Aspartate Amino Transf (AST/SGOT) 122 U/L (15-37) Alanine Aminotransferase (ALT/SGPT) 70 U/L (14-59) Alkaline Phosphatase 91 U/L (46-116) Total Protein 4.9 g/dL (6.4-8.2) Albumin 1.6 g/dL (3.4-5.0) Albumin/Globulin Ratio 0.5 (1.0-1.7) Review of Systems Review of Systems A 14 point ROS was completed with the following noted as positive: Other systems reviewed and negative. \CONSTITUTIONAL: No fever or chills EYES: No recent changes SKIN: No rash or itching CARDIOVASCULAR: No chest pain, syncope, palpitations, or edema RESPIRATORY: No SOB or cough GASTROINTESTINAL: No nausea, vomiting or abdominal pain NEUROLOGICAL: No headaches or weakness ENDOCRINE: No cold or heat intolerance GENITOURINARY: No urgency or frequency of urination MUSCULOSKELETAL: No back pain or joint pain LYMPHATICS: No enlarged lymph nodes PSYCHIATRIC: No anxiety or depression Assessment and Plan Assessmemt and Plan Problems Medical Problems: (1) Chest pain Status: Acute (2) Elevated bilirubin Status: Acute Comment Review of Relevant I have reviewed the following items leo (where applicable) has been applied. Labs Laboratory Tests Test 11/16/18 05:00 11/17/18 05:35 White Blood Count 4.5 x10^3/uL (4.0-11.0) 4.3 x10^3/uL (4.0-11.0) Red Blood Count 2.87 x10^6/uL (3.50-5.40) 2.78 x10^6/uL (3.50-5.40) Hemoglobin 8.6 g/dL (12.0-15.5) 8.5 g/dL (12.0-15.5) Hematocrit 26.6 % (36.0-47.0) 25.5 % (36.0-47.0) Mean Corpuscular Volume 93 fL (79-100) 92 fL (79-100) Mean Corpuscular Hemoglobin 30 pg (25-35) 31 pg (25-35) Mean Corpuscular Hemoglobin Concent 33 g/dL (31-37) 33 g/dL (31-37) Red Cell Distribution Width 17.8 % (11.5-14.5) 17.8 % (11.5-14.5) Platelet Count 297 x10^3/uL (140-400) 327 x10^3/uL (140-400) Neutrophils (%) (Auto) 26 % (31-73) 25 % (31-73) Lymphocytes (%) (Auto) 61 % (24-48) 65 % (24-48) Monocytes (%) (Auto) 10 % (0-9) 8 % (0-9) Eosinophils (%) (Auto) 1 % (0-3) 2 % (0-3) Basophils (%) (Auto) 2 % (0-3) 1 % (0-3) Neutrophils # (Auto) 1.2 x10^3uL (1.8-7.7) 1.1 x10^3uL (1.8-7.7) Lymphocytes # (Auto) 2.7 x10^3/uL (1.0-4.8) 2.8 x10^3/uL (1.0-4.8) Monocytes # (Auto) 0.5 x10^3/uL (0.0-1.1) 0.4 x10^3/uL (0.0-1.1) Eosinophils # (Auto) 0.0 x10^3/uL (0.0-0.7) 0.1 x10^3/uL (0.0-0.7) Basophils # (Auto) 0.1 x10^3/uL (0.0-0.2) 0.1 x10^3/uL (0.0-0.2) Sodium Level 142 mmol/L (136-145) 141 mmol/L (136-145) Potassium Level 3.2 mmol/L (3.5-5.1) 3.3 mmol/L (3.5-5.1) Chloride Level 109 mmol/L (98-107) 108 mmol/L (98-107) Carbon Dioxide Level 21 mmol/L (21-32) 20 mmol/L (21-32) Anion Gap 12 (6-14) 13 (6-14) Blood Urea Nitrogen 1 mg/dL (7-20) 2 mg/dL (7-20) Creatinine 0.4 mg/dL (0.6-1.0) 0.5 mg/dL (0.6-1.0) Estimated GFR (Cockcroft-Gault) 208.9 161.4 BUN/Creatinine Ratio 3 (6-20) 4 (6-20) Glucose Level 146 mg/dL (70-99) 136 mg/dL (70-99) Calcium Level 7.7 mg/dL (8.5-10.1) 8.0 mg/dL (8.5-10.1) Total Bilirubin 2.2 mg/dL (0.2-1.0) 2.1 mg/dL (0.2-1.0) Aspartate Amino Transf (AST/SGOT) 135 U/L (15-37) 122 U/L (15-37) Alanine Aminotransferase (ALT/SGPT) 70 U/L (14-59) 70 U/L (14-59) Alkaline Phosphatase 95 U/L (46-116) 91 U/L (46-116) Total Protein 4.9 g/dL (6.4-8.2) 4.9 g/dL (6.4-8.2) Albumin 1.5 g/dL (3.4-5.0) 1.6 g/dL (3.4-5.0) Albumin/Globulin Ratio 0.4 (1.0-1.7) 0.5 (1.0-1.7) Laboratory Tests Test 11/17/18 05:35 White Blood Count 4.3 x10^3/uL (4.0-11.0) Red Blood Count 2.78 x10^6/uL (3.50-5.40) Hemoglobin 8.5 g/dL (12.0-15.5) Hematocrit 25.5 % (36.0-47.0) Mean Corpuscular Volume 92 fL (79-100) Mean Corpuscular Hemoglobin 31 pg (25-35) Mean Corpuscular Hemoglobin Concent 33 g/dL (31-37) Red Cell Distribution Width 17.8 % (11.5-14.5) Platelet Count 327 x10^3/uL (140-400) Neutrophils (%) (Auto) 25 % (31-73) Lymphocytes (%) (Auto) 65 % (24-48) Monocytes (%) (Auto) 8 % (0-9) Eosinophils (%) (Auto) 2 % (0-3) Basophils (%) (Auto) 1 % (0-3) Neutrophils # (Auto) 1.1 x10^3uL (1.8-7.7) Lymphocytes # (Auto) 2.8 x10^3/uL (1.0-4.8) Monocytes # (Auto) 0.4 x10^3/uL (0.0-1.1) Eosinophils # (Auto) 0.1 x10^3/uL (0.0-0.7) Basophils # (Auto) 0.1 x10^3/uL (0.0-0.2) Sodium Level 141 mmol/L (136-145) Potassium Level 3.3 mmol/L (3.5-5.1) Chloride Level 108 mmol/L (98-107) Carbon Dioxide Level 20 mmol/L (21-32) Anion Gap 13 (6-14) Blood Urea Nitrogen 2 mg/dL (7-20) Creatinine 0.5 mg/dL (0.6-1.0) Estimated GFR (Cockcroft-Gault) 161.4 BUN/Creatinine Ratio 4 (6-20) Glucose Level 136 mg/dL (70-99) Calcium Level 8.0 mg/dL (8.5-10.1) Total Bilirubin 2.1 mg/dL (0.2-1.0) Aspartate Amino Transf (AST/SGOT) 122 U/L (15-37) Alanine Aminotransferase (ALT/SGPT) 70 U/L (14-59) Alkaline Phosphatase 91 U/L (46-116) Total Protein 4.9 g/dL (6.4-8.2) Albumin 1.6 g/dL (3.4-5.0) Albumin/Globulin Ratio 0.5 (1.0-1.7) Microbiology 11/06/18 Urine Culture - Final, Complete 11/06/18 Urine Culture Result 1 ([facility]) - Final, Complete 11/06/18 Antimicrobic Susceptibility - Final, Complete Medications Current Medications Aspirin (Children'S Aspirin) 324 mg 1X ONCE PO Last administered on 11/06/18at 10:44; Start 11/06/18 at 09:15; Stop 11/06/18 at 09:18; Status DC Morphine Sulfate (Morphine Sulfate) 4 mg PRN Q15MIN PRN IV/SQ PAIN GREATER THAN 3/10 Last administered on 11/06/18at 13:14; Start 11/06/18 at 09:15; Stop at 09:14; Status DC Ondansetron HCl (Zofran) 4 mg 1X ONCE IV Last administered on 11/06/18at 10:44 ; Start 11/06/18 at 09:15; Stop 11/06/18 at 09:18; Status DC Iohexol (Omnipaque 350 Mg/ml) 100 ml 1X ONCE IV Last administered on at 22:00; Start 11/06/18 at 11:30; Stop 11/06/18 at 11:33; Status DC Info (CONTRAST GIVEN -- Rx MONITORING) 1 each PRN DAILY PRN MC SEE COMMENTS; Start 11/06/18 at 11:45; Stop 11/08/18 at 11:44; Status DC Levofloxacin/ Dextrose 100 ml @ 100 mls/hr 1X ONCE IV Last administered on 15:30; Start 11/06/18 at 13:15; Stop 11/06/18 at 14:14; Status DC Ondansetron HCl (Zofran) 4 mg PRN Q4HRS PRN IV NAUSEA/VOMITING Last administered on 11/17/18 09:34; Start 11/06/18 at 13:30 Zolpidem Tartrate (Ambien) 5 mg PRN QHS PRN PO INSOMNIA Last administered on 20:48; Start 11/06/18 at 13:30 Acetaminophen (Tylenol) 650 mg PRN Q4HRS PRN PO TEMP OVER 100.4F OR MILD PAIN Last administered on 11/06/18 17:10; Start 11/06/18 at 13:30 Al Hydroxide/Mg Hydroxide (Mylanta Plus Xs) 30 ml PRN DAILY PRN PO HEARTBURN / GAS; Start 11/06/18 at 13:30 Clonidine HCl (Catapres) 0.1 mg PRN Q6HRS PRN PO SBP>160 OR DBP>90 Last administered on 11/15/18 20:27; Start 11/06/18 at 13:30 Diphenhydramine HCl (Benadryl) 25 mg PRN Q4HRS PRN IVP ITCHING; Start 11/06/18 at 13:30 Docusate Sodium (Colace) 100 mg PRN BID PRN PO HARD STOOLS Last administered on 11/13/18 08:06; Start 11/06/18 at 13:30 Albuterol Sulfate (Ventolin Neb Soln) 2.5 mg PRN Q4HRS PRN NEB SHORTNESS OF BREATH Last administered on 11/12/18 08:08; Start 11/06/18 at 13:30 Guaifenesin (Robitussin) 200 mg PRN Q4HRS PRN PO COUGH Last administered on 09:34; Start 11/06/18 at 13:30 Lorazepam (Ativan) 0.5 mg PRN Q4HRS PRN PO ANXIETY / AGITATION; Start 11/06/18 at 13:30 Carvedilol (Coreg) 3.125 mg BIDWMEALS PO Last administered on 11/17/18 08:30; Start 11/06/18 at 17:00 Folic Acid (Folic Acid) 1 mg DAILY PO Last administered on 11/17/18 09:34; Start 11/06/18 at 15:00 Losartan Potassium (Cozaar) 100 mg DAILY PO Last administered on 11/17/18 09: 34; Start 11/06/18 at 15:00 Lurasidone HCl (Latuda) 40 mg DAILY PO Last administered on 11/17/18 09:34; Start 11/06/18 at 15:00 Ergocalciferol (Vitamin D2) 50,000 unit WEEKLY PO Last administered on 08:07; Start 11/06/18 at 15:00 Magnesium Oxide (Magnesium Oxide) 200 mg DAILY PO Last administered on 09:35; Start 11/06/18 at 15:00 Rivaroxaban (Xarelto) 20 mg DAILYWSUP PO ; Start 11/06/18 at 17:00; Stop at 17:00; Status DC Sucralfate (Carafate) 1 gm QIDACHS PO Last administered on 11/17/18 08:29; Start 11/06/18 at 16:30 Pantoprazole Sodium (Protonix) 40 mg BIDAC PO Last administered on 11/17/18 08 :30; Start 11/06/18 at 16:30 Info (Anti-Coagulation Monitoring By Pharmacy) 1 each PRN DAILY PRN MC SEE COMMENTS Last administered on 11/16/18 13:33; Start 11/06/18 at 14:15 Potassium Chloride (KCl Oral Soln) 20 meq 1X ONCE PEG Last administered on 17:09; Start 11/06/18 at 15:00; Stop 11/06/18 at 15:01; Status DC Heparin Sodium/ Dextrose 500 ml @ 0 mls/hr CONT PRN IV SEE I/O RECORD; Start at 16:30; Status UNV Heparin Sodium (Porcine) (Heparin Sodium) 6,600 unit 1X ONCE IV Last administered on 11/06/18 17:20; Start 11/06/18 at 16:30; Stop 11/07/18 at 09:48 ; Status DC Heparin Sodium/ Dextrose 500 ml @ 0 mls/hr CONT PRN IV SEE I/O RECORD Last administered on 11/06/18at 17:32; Start 11/06/18 at 16:30; Stop 11/07/18 at 09:48 ; Status DC Heparin Sodium (Porcine) (Heparin Sodium) 2,500 unit PRN Q6HRS PRN IV FOR UFH LEVEL LESS THAN 0.2; Start 11/06/18 at 16:30; Stop 11/07/18 at 09:48; Status DC Heparin Sodium (Porcine) (Heparin Sodium) 1,200 unit PRN Q6HRS PRN IV FOR UFH LEVEL 0.2 - 0.29; Start 11/06/18 at 16:30; Stop 11/07/18 at 09:48; Status DC Morphine Sulfate (Morphine Sulfate) 2 mg Q3HRS PRN IV PAIN Last administered on 11/14/18 08:23; Start 11/06/18 at 19:30 Iohexol (Omnipaque 350 Mg/ml) 100 ml STK-MED ONCE .ROUTE ; Start 11/07/18 at 02: 38; Stop 11/07/18 at 02:39; Status DC Rivaroxaban (Xarelto) 20 mg DAILYWSUP PO Last administered on 11/14/18 16:49; Start 11/07/18 at 10:00; Stop 11/15/18 at 14:03; Status DC Bisacodyl (Dulcolax Tab) 5 mg 1X ONCE PO Last administered on 11/07/18 13:40 ; Start 11/07/18 at 14:00; Stop 11/07/18 at 14:01; Status DC Polyethylene Glycol (miraLAX PACKET) 17 gm DAILY PO Last administered on 08:48; Start 11/07/18 at 14:00 Midazolam HCl (Versed) 2 mg PRN 1X PRN IV PRIOR TO PROCEDURE; Start 11/08/18 at 09:30; Stop 11/09/18 at 09:29; Status DC Ringer's Solution 1,000 ml @ 125 mls/hr Q8H IV Last administered on 11/08/18at 09:28; Start 11/08/18 at 09:24; Stop 11/08/18 at 21:23; Status DC Lidocaine HCl (Xylocaine-Mpf 1% 2ml Vial) 2 ml 1X PRN PRN ID IV START; Start at 09:30; Stop 11/09/18 at 09:29; Status DC Barium Sulfate (Liquid E-Z Paque) 711 ml 1X ONCE PO Last administered on at 10:15; Start 11/08/18 at 10:15; Stop 11/08/18 at 10:17; Status DC Ciprofloxacin (Cipro) 500 mg BID PO Last administered on 11/10/18at 08:32; Start 11/08/18 at 15:00; Stop 11/10/18 at 14:17; Status DC Iohexol (Omnipaque 300 Mg/ml) 70 ml 1X ONCE IV Last administered on 11/08/18at 08:36; Start 11/08/18 at 17:15; Stop 11/08/18 at 17:16; Status DC Info (CONTRAST GIVEN -- Rx MONITORING) 1 each PRN DAILY PRN MC SEE COMMENTS; Start 11/08/18 at 17:15; Stop 11/10/18 at 17:14; Status DC Lactobacillus Rhamnosus (Culturelle) 1 cap BID PO Last administered on at 09:34; Start 11/09/18 at 09:00 Potassium Chloride (Klor-Con) 40 meq 1X ONCE PO Last administered on at 18:15; Start 11/09/18 at 19:00; Stop 11/09/18 at 19:01; Status DC Potassium Chloride (Klor-Con) 40 meq 1X ONCE PO Last administered on at 15:02; Start 11/10/18 at 15:00; Stop 11/10/18 at 15:01; Status DC Meropenem 500 mg/ Sodium Chloride 50 ml @ 100 mls/hr Q8HRS IV Last administered on 11/17/18at 05:38; Start 11/10/18 at 15:00 Potassium Chloride (Klor-Con) 40 meq 1X ONCE PO Last administered on at 11:32; Start 11/12/18 at 11:00; Stop 11/12/18 at 11:01; Status DC Acetaminophen/ Hydrocodone Bitart (Lortab 5/325) 1 tab PRN Q4HRS PRN PO SEVERE PAIN Last administered on 11/16/18 08:43; Start 11/12/18 at 11:00 Magnesium Hydroxide (Milk Of Magnesia) 2,400 mg PRN DAILY PRN PO CONSTIPATION Last administered on 11/17/18 09:34; Start 11/12/18 at 11:00 Bisacodyl (Dulcolax Supp) 10 mg PRN DAILY PRN ME CONSTIPATION Last administered on 11/12/18 13:07; Start 11/12/18 at 11:00 Tramadol HCl (Ultram) 50 mg PRN Q6HRS PRN PO MODERATE PAIN Last administered on 11/14/18 16:52; Start 11/14/18 at 11:15 Enoxaparin Sodium (Lovenox 40mg Syringe) 40 mg BID SQ Last administered on 11/17 08:31; Start 11/15/18 at 21:00 Active Scripts Active Cozaar (Losartan Potassium) 50 Mg Tablet 100 Mg PO DAILY 30 Days Carafate (Sucralfate) 1 Gm Tablet 1 Gm PO QIDACHS [Pantoprazole] 40 MG Tablet.dr 40 Mg PO BIDAC Reported Carvedilol 3.125 Mg Tablet 3.125 Mg PO BIDWMEALS Xarelto (Rivaroxaban) 20 Mg Tablet 20 Mg PO DAILY Latuda (Lurasidone Hcl) 40 Mg Tablet 40 Mg PO DAILY Vitamin D3 (Cholecalciferol (Vitamin D3)) 50,000 Unit Capsule 50,000 Unit PO WEEKLY Folic Acid 1 Mg Tablet 1 Mg PO DAILY Magnesium Oxide 400 Mg Tablet 250 Mg PO DAILY Vitals/I & O Vital Sign - Last 24 Hours 11/16/18 11/16/18 11/16/18 11/16/18 15:00 17:25 19:00 19:33 Temp 98.1 97.6 98.1 97.6 Pulse 91 91 83 Resp 16 16 B/P (MAP) 148/96 (113) 148/96 112/76 (88) Pulse Ox 96 98 O2 Delivery Room Air Room Air Room Air 11/16/18 11/17/18 11/17/18 11/17/18 23:00 03:00 07:00 08:00 Temp 97.7 97.9 98.2 97.7 97.9 98.2 Pulse 79 74 79 Resp 16 16 16 B/P (MAP) 111/71 (84) 110/75 (87) 126/87 (100) Pulse Ox 100 100 99 O2 Delivery Room Air Room Air Room Air Room Air 11/17/18 11/17/18 11/17/18 08:30 09:34 11:00 Temp 98.2 98.2 Pulse 79 79 86 Resp 16 B/P (MAP) 126/87 126/87 125/89 (101) Pulse Ox 98 O2 Delivery Room Air Intake and Output 11/16/18 11/16/18 11/17/18 15:00 23:00 07:00 Intake Total 240 ml 150 ml Balance 240 ml 150 ml Nutrition Consultation Dietary Evaluation: Recommendations by RD: Protein supplementation Comments: continue cardiac/ADA diet per pmhx change Glucerna TID to q day per pt request Expected Outcomes/Goals: PO intake to meet >75% est needs- goal ongoing Interpretation of weight loss: >5% in 1 month Malnutrition Findings: Food and Nutrition Intake (Mod: <75% est energy req 7days Weight Status: Obese JIM HINDS MD Nov 17, 2018 11:51
--- NOTE | 2018-11-17 12:41 | PDOC ---
Subjective: Subjective: Ate preston. Hasn't tried lunch yet. Objective: Vital Signs: Vital Signs Date Time Temp Pulse Resp B/P (MAP) Pulse Ox O2 Delivery O2 Flow Rate FiO2 11/17/18 11:00 98.2 86 16 125/89 (101) 98 Room Air 98.2 11/16/18 08:00 2.0 Labs: Laboratory Tests Test 11/17/18 05:35 White Blood Count 4.3 x10^3/uL Red Blood Count 2.78 x10^6/uL Hemoglobin 8.5 g/dL Hematocrit 25.5 % Mean Corpuscular Volume 92 fL Mean Corpuscular Hemoglobin 31 pg Mean Corpuscular Hemoglobin Concent 33 g/dL Red Cell Distribution Width 17.8 % Platelet Count 327 x10^3/uL Neutrophils (%) (Auto) 25 % Lymphocytes (%) (Auto) 65 % Monocytes (%) (Auto) 8 % Eosinophils (%) (Auto) 2 % Basophils (%) (Auto) 1 % Neutrophils # (Auto) 1.1 x10^3uL Lymphocytes # (Auto) 2.8 x10^3/uL Monocytes # (Auto) 0.4 x10^3/uL Eosinophils # (Auto) 0.1 x10^3/uL Basophils # (Auto) 0.1 x10^3/uL Sodium Level 141 mmol/L Potassium Level 3.3 mmol/L Chloride Level 108 mmol/L Carbon Dioxide Level 20 mmol/L Anion Gap 13 Blood Urea Nitrogen 2 mg/dL Creatinine 0.5 mg/dL Estimated GFR (Cockcroft-Gault) 161.4 BUN/Creatinine Ratio 4 Glucose Level 136 mg/dL Calcium Level 8.0 mg/dL Total Bilirubin 2.1 mg/dL Aspartate Amino Transf (AST/SGOT) 122 U/L Alanine Aminotransferase (ALT/SGPT) 70 U/L Alkaline Phosphatase 91 U/L Total Protein 4.9 g/dL Albumin 1.6 g/dL Albumin/Globulin Ratio 0.5 PE: GEN: NAD LUNGS: CTAB HEART: RRR ABD: S/ND/NT NEURO/PSYCH: A & O 3, flat - maybe a little more perky today? A/P: Anorexia, chronic pain Abnormal LFTs H/o PE/DVTs -- Liver biopsy planned for Tuesday - hold Lovenox after Sun a.m. dose. SHAMIR DAMON Nov 17, 2018 12:41
[2018-11-17 15:00] VITALS: BP 160/102
[2018-11-17] MEDS: ANTI-COAG MONITOR BY PHARMACY. MC PRN (15:21)
[2018-11-17 19:00] VITALS: BP 154/108
[2018-11-17 23:00] VITALS: BP 106/64
[2018-11-18 03:00] VITALS: BP 137/62
[2018-11-18] MEDS: MEROPENEM 500 MG in IV NORMAL SALINE 50ML 50 ML IV SCH ×3 (05:46→21:41)
[2018-11-18 06:21] LABS: ALBUMIN 1.4 g/dL (3.4-5.0); ALBUMIN/GLOBULIN RATIO 0.4 (1.0-1.7); CALCIUM 7.6 mg/dL (8.5-10.1); CREATININE 0.4 mg/dL (0.6-1.0); GFR 208.9; POTASSIUM 3.2 mmol/L (3.5-5.1); TOTAL PROTEIN 4.7 g/dL (6.4-8.2)
[2018-11-18 06:24] LABS: BASO # 0.1 x10^3/uL (0.0-0.2); BASO % 2 % (0-3); EOS % 1 % (0-3); HEMATOCRIT 25.1 % (36.0-47.0); HEMOGLOBIN 8.1 g/dL (12.0-15.5); LYMPH # 2.5 x10^3/uL (1.0-4.8); LYMPH % 62 % (24-48); MEAN CORPUSCULAR HEMOGLOBIN 30 pg (25-35); MEAN CORPUSCULAR HGB CONC 32 g/dL (31-37); MEAN CORPUSCULAR VOLUME 93 fL (79-100); MONO # 0.3 x10^3/uL (0.0-1.1); MONO % 7 % (0-9); NEUT # 1.1 x10^3uL (1.8-7.7); NEUT % 28 % (31-73); PLATELET COUNT 366 x10^3/uL (140-400); RED CELL DISTRIBUTION WIDTH 18.2 % (11.5-14.5)
[2018-11-18 07:00] VITALS: BP 131/86
[2018-11-18] MEDS: PANTOPRAZOLE 40 MG TABLET.DR. PO SCH ×2 (07:21→16:32)
[2018-11-18] MEDS: SUCRALFATE 1 GM TABLET. PO SCH ×4 (07:21→21:40)
[2018-11-18] MEDS: LURASIDONE 40 MG TABLET. PO SCH (08:20)
[2018-11-18] MEDS: MAGNESIUM OXIDE 400 MG TABLET PO SCH (08:20)
[2018-11-18] MEDS: FOLIC ACID 1 MG TABLET. PO SCH (08:20)
[2018-11-18] MEDS: LACTOBACILLUS RHAMNOSUS GG 1 CAPSULE. PO SCH ×2 (08:20→21:40)
[2018-11-18] MEDS: LOSARTAN POTASSIUM 50 MG TABLET. PO SCH (08:21)
[2018-11-18] MEDS: CARVEDILOL 3.125 MG TABLET. PO SCH ×2 (08:21→16:32)
[2018-11-18] MEDS: ENOXAPARIN 40 MG/0.4 ML SYRINGE. SQ SCH ×2 (08:22→21:42)
[2018-11-18] MEDS: MAGNESIUM HYDROXIDE 2,400 MG/30 ML ORAL.SUSP. PO PRN (08:24)
[2018-11-18] MEDS: POLYETHYLENE GLYCOL 3350 17 GM PACKET. PO SCH (08:26)
--- NOTE | 2018-11-18 09:14 | PDOC ---
PROGRESS NOTES Chief Complaint Chief Complaint Transaminitis most likely secondary to steatohepatitis Chest pain acute coronary syndrome ruled out UTI: 5-10WBC, positive nitrite and LE History of pulmonary embolism last year Old thrombus noted, back on anticoagulation linear filling defects in the bilateral pulmonary arteries which could be secondary to old recanalized embolus. 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 Non adherence to PPI and carafate for ulcer treatment Inability to tolerate PO well persists History of IVC filter placement Obesity with BMI of 34 Mild bilirubinemia Hypokalemia and hyponatremia as a consequence of her poor oral intake, on replacement intractable nausea persists hypertension, suboptimal control History of Present Illness History of Present Illness She has no complaints No father or family at bedside Planned for [facility] on Tuesday after liver biopsy Tuesday Patient on Xarelto, hx of PE with IVC filter (at ). AST/ALT remain elevated. GI following. Currently on lovenox 40 twice a day because we are holding Xarelto for the biopsy planned on Tuesday PLAN: c p.m. liver biopsy on Tuesday HOld Lovenox on Tuesday [facility] on discharge Vitals Vitals Vital Signs Date Time Temp Pulse Resp B/P (MAP) Pulse Ox O2 Delivery O2 Flow Rate FiO2 11/18/18 08:21 88 131/86 11/18/18 07:00 97.9 20 99 Room Air 97.9 Physical Exam General: Alert, Oriented X3, Cooperative, mild distress (nausea) Heart: Regular rate (SR), Normal S1, Normal S2, No murmurs, Other (2/6 systolic murmur to LLS border) Lungs: Clear Abdomen: Normal bowel sounds, Soft, No tenderness Extremities: No clubbing, No cyanosis, No edema Skin: No rashes, No significant lesion Labs LABS Laboratory Tests Test 11/18/18 05:50 White Blood Count 4.0 x10^3/uL (4.0-11.0) Red Blood Count 2.70 x10^6/uL (3.50-5.40) Hemoglobin 8.1 g/dL (12.0-15.5) Hematocrit 25.1 % (36.0-47.0) Mean Corpuscular Volume 93 fL (79-100) Mean Corpuscular Hemoglobin 30 pg (25-35) Mean Corpuscular Hemoglobin Concent 32 g/dL (31-37) Red Cell Distribution Width 18.2 % (11.5-14.5) Platelet Count 366 x10^3/uL (140-400) Neutrophils (%) (Auto) 28 % (31-73) Lymphocytes (%) (Auto) 62 % (24-48) Monocytes (%) (Auto) 7 % (0-9) Eosinophils (%) (Auto) 1 % (0-3) Basophils (%) (Auto) 2 % (0-3) Neutrophils # (Auto) 1.1 x10^3uL (1.8-7.7) Lymphocytes # (Auto) 2.5 x10^3/uL (1.0-4.8) Monocytes # (Auto) 0.3 x10^3/uL (0.0-1.1) Eosinophils # (Auto) 0.0 x10^3/uL (0.0-0.7) Basophils # (Auto) 0.1 x10^3/uL (0.0-0.2) Sodium Level 139 mmol/L (136-145) Potassium Level 3.2 mmol/L (3.5-5.1) Chloride Level 108 mmol/L (98-107) Carbon Dioxide Level 21 mmol/L (21-32) Anion Gap 10 (6-14) Blood Urea Nitrogen 4 mg/dL (7-20) Creatinine 0.4 mg/dL (0.6-1.0) Estimated GFR (Cockcroft-Gault) 208.9 BUN/Creatinine Ratio 10 (6-20) Glucose Level 120 mg/dL (70-99) Calcium Level 7.6 mg/dL (8.5-10.1) Total Bilirubin 2.0 mg/dL (0.2-1.0) Aspartate Amino Transf (AST/SGOT) 126 U/L (15-37) Alanine Aminotransferase (ALT/SGPT) 66 U/L (14-59) Alkaline Phosphatase 84 U/L (46-116) Total Protein 4.7 g/dL (6.4-8.2) Albumin 1.4 g/dL (3.4-5.0) Albumin/Globulin Ratio 0.4 (1.0-1.7) Review of Systems Review of Systems A 14 point ROS was completed with the following noted as positive: Other systems reviewed and negative. \CONSTITUTIONAL: No fever or chills EYES: No recent changes SKIN: No rash or itching CARDIOVASCULAR: No chest pain, syncope, palpitations, or edema RESPIRATORY: No SOB or cough GASTROINTESTINAL: No nausea, vomiting or abdominal pain NEUROLOGICAL: No headaches or weakness ENDOCRINE: No cold or heat intolerance GENITOURINARY: No urgency or frequency of urination MUSCULOSKELETAL: No back pain or joint pain LYMPHATICS: No enlarged lymph nodes PSYCHIATRIC: No anxiety or depression Assessment and Plan Assessmemt and Plan Problems Medical Problems: (1) Chest pain Status: Acute (2) Elevated bilirubin Status: Acute Comment Review of Relevant I have reviewed the following items leo (where applicable) has been applied. Labs Laboratory Tests Test 11/17/18 05:35 11/18/18 05:50 White Blood Count 4.3 x10^3/uL (4.0-11.0) 4.0 x10^3/uL (4.0-11.0) Red Blood Count 2.78 x10^6/uL (3.50-5.40) 2.70 x10^6/uL (3.50-5.40) Hemoglobin 8.5 g/dL (12.0-15.5) 8.1 g/dL (12.0-15.5) Hematocrit 25.5 % (36.0-47.0) 25.1 % (36.0-47.0) Mean Corpuscular Volume 92 fL (79-100) 93 fL (79-100) Mean Corpuscular Hemoglobin 31 pg (25-35) 30 pg (25-35) Mean Corpuscular Hemoglobin Concent 33 g/dL (31-37) 32 g/dL (31-37) Red Cell Distribution Width 17.8 % (11.5-14.5) 18.2 % (11.5-14.5) Platelet Count 327 x10^3/uL (140-400) 366 x10^3/uL (140-400) Neutrophils (%) (Auto) 25 % (31-73) 28 % (31-73) Lymphocytes (%) (Auto) 65 % (24-48) 62 % (24-48) Monocytes (%) (Auto) 8 % (0-9) 7 % (0-9) Eosinophils (%) (Auto) 2 % (0-3) 1 % (0-3) Basophils (%) (Auto) 1 % (0-3) 2 % (0-3) Neutrophils # (Auto) 1.1 x10^3uL (1.8-7.7) 1.1 x10^3uL (1.8-7.7) Lymphocytes # (Auto) 2.8 x10^3/uL (1.0-4.8) 2.5 x10^3/uL (1.0-4.8) Monocytes # (Auto) 0.4 x10^3/uL (0.0-1.1) 0.3 x10^3/uL (0.0-1.1) Eosinophils # (Auto) 0.1 x10^3/uL (0.0-0.7) 0.0 x10^3/uL (0.0-0.7) Basophils # (Auto) 0.1 x10^3/uL (0.0-0.2) 0.1 x10^3/uL (0.0-0.2) Sodium Level 141 mmol/L (136-145) 139 mmol/L (136-145) Potassium Level 3.3 mmol/L (3.5-5.1) 3.2 mmol/L (3.5-5.1) Chloride Level 108 mmol/L (98-107) 108 mmol/L (98-107) Carbon Dioxide Level 20 mmol/L (21-32) 21 mmol/L (21-32) Anion Gap 13 (6-14) 10 (6-14) Blood Urea Nitrogen 2 mg/dL (7-20) 4 mg/dL (7-20) Creatinine 0.5 mg/dL (0.6-1.0) 0.4 mg/dL (0.6-1.0) Estimated GFR (Cockcroft-Gault) 161.4 208.9 BUN/Creatinine Ratio 4 (6-20) 10 (6-20) Glucose Level 136 mg/dL (70-99) 120 mg/dL (70-99) Calcium Level 8.0 mg/dL (8.5-10.1) 7.6 mg/dL (8.5-10.1) Total Bilirubin 2.1 mg/dL (0.2-1.0) 2.0 mg/dL (0.2-1.0) Aspartate Amino Transf (AST/SGOT) 122 U/L (15-37) 126 U/L (15-37) Alanine Aminotransferase (ALT/SGPT) 70 U/L (14-59) 66 U/L (14-59) Alkaline Phosphatase 91 U/L (46-116) 84 U/L (46-116) Total Protein 4.9 g/dL (6.4-8.2) 4.7 g/dL (6.4-8.2) Albumin 1.6 g/dL (3.4-5.0) 1.4 g/dL (3.4-5.0) Albumin/Globulin Ratio 0.5 (1.0-1.7) 0.4 (1.0-1.7) Laboratory Tests Test 11/18/18 05:50 White Blood Count 4.0 x10^3/uL (4.0-11.0) Red Blood Count 2.70 x10^6/uL (3.50-5.40) Hemoglobin 8.1 g/dL (12.0-15.5) Hematocrit 25.1 % (36.0-47.0) Mean Corpuscular Volume 93 fL (79-100) Mean Corpuscular Hemoglobin 30 pg (25-35) Mean Corpuscular Hemoglobin Concent 32 g/dL (31-37) Red Cell Distribution Width 18.2 % (11.5-14.5) Platelet Count 366 x10^3/uL (140-400) Neutrophils (%) (Auto) 28 % (31-73) Lymphocytes (%) (Auto) 62 % (24-48) Monocytes (%) (Auto) 7 % (0-9) Eosinophils (%) (Auto) 1 % (0-3) Basophils (%) (Auto) 2 % (0-3) Neutrophils # (Auto) 1.1 x10^3uL (1.8-7.7) Lymphocytes # (Auto) 2.5 x10^3/uL (1.0-4.8) Monocytes # (Auto) 0.3 x10^3/uL (0.0-1.1) Eosinophils # (Auto) 0.0 x10^3/uL (0.0-0.7) Basophils # (Auto) 0.1 x10^3/uL (0.0-0.2) Sodium Level 139 mmol/L (136-145) Potassium Level 3.2 mmol/L (3.5-5.1) Chloride Level 108 mmol/L (98-107) Carbon Dioxide Level 21 mmol/L (21-32) Anion Gap 10 (6-14) Blood Urea Nitrogen 4 mg/dL (7-20) Creatinine 0.4 mg/dL (0.6-1.0) Estimated GFR (Cockcroft-Gault) 208.9 BUN/Creatinine Ratio 10 (6-20) Glucose Level 120 mg/dL (70-99) Calcium Level 7.6 mg/dL (8.5-10.1) Total Bilirubin 2.0 mg/dL (0.2-1.0) Aspartate Amino Transf (AST/SGOT) 126 U/L (15-37) Alanine Aminotransferase (ALT/SGPT) 66 U/L (14-59) Alkaline Phosphatase 84 U/L (46-116) Total Protein 4.7 g/dL (6.4-8.2) Albumin 1.4 g/dL (3.4-5.0) Albumin/Globulin Ratio 0.4 (1.0-1.7) Microbiology 11/06/18 Urine Culture - Final, Complete 11/06/18 Urine Culture Result 1 ([facility]) - Final, Complete 11/06/18 Antimicrobic Susceptibility - Final, Complete Medications Current Medications Aspirin (Children'S Aspirin) 324 mg 1X ONCE PO Last administered on 11/06/18at 10:44; Start 11/06/18 at 09:15; Stop 11/06/18 at 09:18; Status DC Morphine Sulfate (Morphine Sulfate) 4 mg PRN Q15MIN PRN IV/SQ PAIN GREATER THAN 3/10 Last administered on 11/06/18at 13:14; Start 11/06/18 at 09:15; Stop at 09:14; Status DC Ondansetron HCl (Zofran) 4 mg 1X ONCE IV Last administered on 11/06/18at 10:44 ; Start 11/06/18 at 09:15; Stop 11/06/18 at 09:18; Status DC Iohexol (Omnipaque 350 Mg/ml) 100 ml 1X ONCE IV Last administered on at 22:00; Start 11/06/18 at 11:30; Stop 11/06/18 at 11:33; Status DC Info (CONTRAST GIVEN -- Rx MONITORING) 1 each PRN DAILY PRN MC SEE COMMENTS; Start 11/06/18 at 11:45; Stop 11/08/18 at 11:44; Status DC Levofloxacin/ Dextrose 100 ml @ 100 mls/hr 1X ONCE IV Last administered on 15:30; Start 11/06/18 at 13:15; Stop 11/06/18 at 14:14; Status DC Ondansetron HCl (Zofran) 4 mg PRN Q4HRS PRN IV NAUSEA/VOMITING Last administered on 11/17/18 19:21; Start 11/06/18 at 13:30 Zolpidem Tartrate (Ambien) 5 mg PRN QHS PRN PO INSOMNIA Last administered on 20:48; Start 11/06/18 at 13:30 Acetaminophen (Tylenol) 650 mg PRN Q4HRS PRN PO TEMP OVER 100.4F OR MILD PAIN Last administered on 11/06/18 17:10; Start 11/06/18 at 13:30 Al Hydroxide/Mg Hydroxide (Mylanta Plus Xs) 30 ml PRN DAILY PRN PO HEARTBURN / GAS; Start 11/06/18 at 13:30 Clonidine HCl (Catapres) 0.1 mg PRN Q6HRS PRN PO SBP>160 OR DBP>90 Last administered on 11/15/18 20:27; Start 11/06/18 at 13:30 Diphenhydramine HCl (Benadryl) 25 mg PRN Q4HRS PRN IVP ITCHING; Start 11/06/18 at 13:30 Docusate Sodium (Colace) 100 mg PRN BID PRN PO HARD STOOLS Last administered on 11/13/18 08:06; Start 11/06/18 at 13:30 Albuterol Sulfate (Ventolin Neb Soln) 2.5 mg PRN Q4HRS PRN NEB SHORTNESS OF BREATH Last administered on 11/12/18 08:08; Start 11/06/18 at 13:30 Guaifenesin (Robitussin) 200 mg PRN Q4HRS PRN PO COUGH Last administered on 16:43; Start 11/06/18 at 13:30 Lorazepam (Ativan) 0.5 mg PRN Q4HRS PRN PO ANXIETY / AGITATION; Start 11/06/18 at 13:30 Carvedilol (Coreg) 3.125 mg BIDWMEALS PO Last administered on 11/18/18 08:21; Start 11/06/18 at 17:00 Folic Acid (Folic Acid) 1 mg DAILY PO Last administered on 11/18/18 08:20; Start 11/06/18 at 15:00 Losartan Potassium (Cozaar) 100 mg DAILY PO Last administered on 11/18/18 08: 21; Start 11/06/18 at 15:00 Lurasidone HCl (Latuda) 40 mg DAILY PO Last administered on 11/18/18 08:20; Start 11/06/18 at 15:00 Ergocalciferol (Vitamin D2) 50,000 unit WEEKLY PO Last administered on 08:07; Start 11/06/18 at 15:00 Magnesium Oxide (Magnesium Oxide) 200 mg DAILY PO Last administered on 08:20; Start 11/06/18 at 15:00 Rivaroxaban (Xarelto) 20 mg DAILYWSUP PO ; Start 11/06/18 at 17:00; Stop at 17:00; Status DC Sucralfate (Carafate) 1 gm QIDACHS PO Last administered on 11/18/18 07:21; Start 11/06/18 at 16:30 Pantoprazole Sodium (Protonix) 40 mg BIDAC PO Last administered on 11/18/18 07 :21; Start 11/06/18 at 16:30 Info (Anti-Coagulation Monitoring By Pharmacy) 1 each PRN DAILY PRN MC SEE COMMENTS Last administered on 11/17/18 15:21; Start 11/06/18 at 14:15 Potassium Chloride (KCl Oral Soln) 20 meq 1X ONCE PEG Last administered on 17:09; Start 11/06/18 at 15:00; Stop 11/06/18 at 15:01; Status DC Heparin Sodium/ Dextrose 500 ml @ 0 mls/hr CONT PRN IV SEE I/O RECORD; Start at 16:30; Status UNV Heparin Sodium (Porcine) (Heparin Sodium) 6,600 unit 1X ONCE IV Last administered on 11/06/18 17:20; Start 11/06/18 at 16:30; Stop 11/07/18 at 09:48 ; Status DC Heparin Sodium/ Dextrose 500 ml @ 0 mls/hr CONT PRN IV SEE I/O RECORD Last administered on 11/06/18at 17:32; Start 11/06/18 at 16:30; Stop 11/07/18 at 09:48 ; Status DC Heparin Sodium (Porcine) (Heparin Sodium) 2,500 unit PRN Q6HRS PRN IV FOR UFH LEVEL LESS THAN 0.2; Start 11/06/18 at 16:30; Stop 11/07/18 at 09:48; Status DC Heparin Sodium (Porcine) (Heparin Sodium) 1,200 unit PRN Q6HRS PRN IV FOR UFH LEVEL 0.2 - 0.29; Start 11/06/18 at 16:30; Stop 11/07/18 at 09:48; Status DC Morphine Sulfate (Morphine Sulfate) 2 mg Q3HRS PRN IV PAIN Last administered on 11/14/18 08:23; Start 11/06/18 at 19:30 Iohexol (Omnipaque 350 Mg/ml) 100 ml STK-MED ONCE .ROUTE ; Start 11/07/18 at 02: 38; Stop 11/07/18 at 02:39; Status DC Rivaroxaban (Xarelto) 20 mg DAILYWSUP PO Last administered on 11/14/18at 16:49; Start 11/07/18 at 10:00; Stop 11/15/18 at 14:03; Status DC Bisacodyl (Dulcolax Tab) 5 mg 1X ONCE PO Last administered on 11/07/18at 13:40 ; Start 11/07/18 at 14:00; Stop 11/07/18 at 14:01; Status DC Polyethylene Glycol (miraLAX PACKET) 17 gm DAILY PO Last administered on at 08:48; Start 11/07/18 at 14:00 Midazolam HCl (Versed) 2 mg PRN 1X PRN IV PRIOR TO PROCEDURE; Start 11/08/18 at 09:30; Stop 11/09/18 at 09:29; Status DC Ringer's Solution 1,000 ml @ 125 mls/hr Q8H IV Last administered on 11/08/18at 09:28; Start 11/08/18 at 09:24; Stop 11/08/18 at 21:23; Status DC Lidocaine HCl (Xylocaine-Mpf 1% 2ml Vial) 2 ml 1X PRN PRN ID IV START; Start at 09:30; Stop 11/09/18 at 09:29; Status DC Barium Sulfate (Liquid E-Z Paque) 711 ml 1X ONCE PO Last administered on at 10:15; Start 11/08/18 at 10:15; Stop 11/08/18 at 10:17; Status DC Ciprofloxacin (Cipro) 500 mg BID PO Last administered on 11/10/18at 08:32; Start 11/08/18 at 15:00; Stop 11/10/18 at 14:17; Status DC Iohexol (Omnipaque 300 Mg/ml) 70 ml 1X ONCE IV Last administered on 11/08/18at 08:36; Start 11/08/18 at 17:15; Stop 11/08/18 at 17:16; Status DC Info (CONTRAST GIVEN -- Rx MONITORING) 1 each PRN DAILY PRN MC SEE COMMENTS; Start 11/08/18 at 17:15; Stop 11/10/18 at 17:14; Status DC Lactobacillus Rhamnosus (Culturelle) 1 cap BID PO Last administered on at 08:20; Start 11/09/18 at 09:00 Potassium Chloride (Klor-Con) 40 meq 1X ONCE PO Last administered on at 18:15; Start 11/09/18 at 19:00; Stop 11/09/18 at 19:01; Status DC Potassium Chloride (Klor-Con) 40 meq 1X ONCE PO Last administered on at 15:02; Start 11/10/18 at 15:00; Stop 11/10/18 at 15:01; Status DC Meropenem 500 mg/ Sodium Chloride 50 ml @ 100 mls/hr Q8HRS IV Last administered on 11/18/18at 05:46; Start 11/10/18 at 15:00 Potassium Chloride (Klor-Con) 40 meq 1X ONCE PO Last administered on at 11:32; Start 11/12/18 at 11:00; Stop 11/12/18 at 11:01; Status DC Acetaminophen/ Hydrocodone Bitart (Lortab 5/325) 1 tab PRN Q4HRS PRN PO SEVERE PAIN Last administered on 11/16/18 08:43; Start 11/12/18 at 11:00 Magnesium Hydroxide (Milk Of Magnesia) 2,400 mg PRN DAILY PRN PO CONSTIPATION Last administered on 11/18/18at 08:24; Start 11/12/18 at 11:00 Bisacodyl (Dulcolax Supp) 10 mg PRN DAILY PRN MI CONSTIPATION Last administered on 11/12/18 13:07; Start 11/12/18 at 11:00 Tramadol HCl (Ultram) 50 mg PRN Q6HRS PRN PO MODERATE PAIN Last administered on 11/14/18at 16:52; Start 11/14/18 at 11:15 Enoxaparin Sodium (Lovenox 40mg Syringe) 40 mg BID SQ Last administered on 11/18 08:22; Start 11/15/18 at 21:00 Active Scripts Active Cozaar (Losartan Potassium) 50 Mg Tablet 100 Mg PO DAILY 30 Days Carafate (Sucralfate) 1 Gm Tablet 1 Gm PO QIDACHS [Pantoprazole] 40 MG Tablet.dr 40 Mg PO BIDAC Reported Carvedilol 3.125 Mg Tablet 3.125 Mg PO BIDWMEALS Xarelto (Rivaroxaban) 20 Mg Tablet 20 Mg PO DAILY Latuda (Lurasidone Hcl) 40 Mg Tablet 40 Mg PO DAILY Vitamin D3 (Cholecalciferol (Vitamin D3)) 50,000 Unit Capsule 50,000 Unit PO WEEKLY Folic Acid 1 Mg Tablet 1 Mg PO DAILY Magnesium Oxide 400 Mg Tablet 250 Mg PO DAILY Vitals/I & O Vital Sign - Last 24 Hours 11/17/18 11/17/18 11/17/18 11/17/18 09:34 11:00 15:00 16:43 Temp 98.2 99.7 98.2 99.7 Pulse 79 86 91 91 Resp 16 16 B/P (MAP) 126/87 125/89 (101) 160/102 (121) 160/102 Pulse Ox 98 99 O2 Delivery Room Air Room Air 11/17/18 11/17/18 11/17/18 11/18/18 19:00 20:01 23:00 03:00 Temp 98.2 98.0 98.2 98.2 98.0 98.2 Pulse 100 84 79 Resp 16 16 16 B/P (MAP) 154/108 (123) 106/64 (78) 137/62 (87) Pulse Ox 100 96 99 O2 Delivery Room Air Room Air Room Air Room Air 11/18/18 11/18/18 11/18/18 07:00 08:21 08:21 Temp 97.9 97.9 Pulse 88 88 88 Resp 20 B/P (MAP) 131/86 (101) 131/86 131/86 Pulse Ox 99 O2 Delivery Room Air Intake and Output 11/17/18 11/17/18 11/18/18 15:00 23:00 07:00 Intake Total 180 ml 350 ml 300 ml Balance 180 ml 350 ml 300 ml Nutrition Consultation Dietary Evaluation: Recommendations by RD: Protein supplementation Comments: continue cardiac/ADA diet per pmhx change Glucerna TID to q day per pt request Expected Outcomes/Goals: PO intake to meet >75% est needs- goal ongoing Interpretation of weight loss: >5% in 1 month Malnutrition Findings: Food and Nutrition Intake (Mod: <75% est energy req 7days Weight Status: Obese JIM HINDS MD Nov 18, 2018 09:14
[2018-11-18] MEDS ORDERED: POTASSIUM CHLORIDE 20 MEQ TABLET.ER. PO ONE (10:45)
[2018-11-18 11:00] VITALS: BP 108/69
[2018-11-18] MEDS: ALBUTEROL SULFATE 2.5 MG/3 ML NEBU. NEB PRN (11:08)
[2018-11-18] MEDS: MORPHINE SULFATE 2 MG/ML VIAL. IV PRN ×3 (12:21→19:45)
[2018-11-18] MEDS: ONDANSETRON PF 4 MG/2 ML VIAL. IV PRN ×3 (12:21→19:45)
[2018-11-18 15:00] VITALS: BP 110/72
[2018-11-18 19:00] VITALS: BP 109/77
[2018-11-18 23:01] VITALS: BP 109/74
[2018-11-19] VITALS (7 sets, daily range): BP systolic 111–141; BP diastolic 75–95
[2018-11-19] MEDS: MEROPENEM 500 MG in IV NORMAL SALINE 50ML 50 ML IV SCH ×3 (05:58→21:13)
[2018-11-19] MEDS: PANTOPRAZOLE 40 MG TABLET.DR. PO SCH ×2 (07:12→16:16)
[2018-11-19] MEDS: SUCRALFATE 1 GM TABLET. PO SCH ×4 (07:12→21:12)
[2018-11-19] MEDS: POLYETHYLENE GLYCOL 3350 17 GM PACKET. PO SCH (07:37)
[2018-11-19] MEDS: MAGNESIUM HYDROXIDE 2,400 MG/30 ML ORAL.SUSP. PO PRN (08:03)
[2018-11-19] MEDS: MAGNESIUM OXIDE 400 MG TABLET PO SCH (08:04)
[2018-11-19] MEDS: FOLIC ACID 1 MG TABLET. PO SCH (08:04)
[2018-11-19] MEDS: LACTOBACILLUS RHAMNOSUS GG 1 CAPSULE. PO SCH ×2 (08:04→21:12)
[2018-11-19] MEDS: LURASIDONE 40 MG TABLET. PO SCH (08:04)
[2018-11-19] MEDS: CARVEDILOL 3.125 MG TABLET. PO SCH ×2 (08:05→16:17)
[2018-11-19] MEDS: LOSARTAN POTASSIUM 50 MG TABLET. PO SCH (08:05)
[2018-11-19] MEDS: DOCUSATE SODIUM 100 MG CAPSULE. PO PRN (08:07)
[2018-11-19] MEDS: ONDANSETRON PF 4 MG/2 ML VIAL. IV PRN ×4 (08:10→19:53)
[2018-11-19] MEDS: MORPHINE SULFATE 2 MG/ML VIAL. IV PRN ×4 (08:14→19:53)
--- NOTE | 2018-11-19 10:13 | PDOC ---
PROGRESS NOTES Chief Complaint Chief Complaint Transaminitis most likely secondary to steatohepatitis Chest pain acute coronary syndrome ruled out UTI: 5-10WBC, positive nitrite and LE History of pulmonary embolism last year Old thrombus noted, back on anticoagulation linear filling defects in the bilateral pulmonary arteries which could be secondary to old recanalized embolus. 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 Non adherence to PPI and carafate for ulcer treatment Inability to tolerate PO well persists History of IVC filter placement Obesity with BMI of 34 Mild bilirubinemia Hypokalemia and hyponatremia as a consequence of her poor oral intake, on replacement intractable nausea persists hypertension, suboptimal control History of Present Illness History of Present Illness For liver biopsy tuesday, then pplace dc Patient on Xarelto, hx of PE with IVC filter (at ). PLAN: c p.m. liver biopsy on Tuesday HOld Lovenox on Tuesday [facility] on discharge REsume xarelto 20 PO qD after liver biopsy tuesday Vitals Vitals Vital Signs Date Time Temp Pulse Resp B/P (MAP) Pulse Ox O2 Delivery O2 Flow Rate FiO2 11/19/18 08:44 18 Room Air 11/19/18 08:05 67 140/93 11/19/18 07:00 97.3 98 97.3 11/18/18 20:15 2.0 Physical Exam General: Alert, Oriented X3, Cooperative, mild distress (nausea) Heart: Regular rate (SR), Normal S1, Normal S2, No murmurs, Other (2/6 systolic murmur to LLS border) Lungs: Clear Abdomen: Normal bowel sounds, Soft, No tenderness Extremities: No clubbing, No cyanosis, No edema Skin: No rashes, No significant lesion Review of Systems Review of Systems asleep I did not awaken Assessment and Plan Assessmemt and Plan Problems Medical Problems: (1) Chest pain Status: Acute (2) Elevated bilirubin Status: Acute Comment Review of Relevant I have reviewed the following items leo (where applicable) has been applied. Labs Laboratory Tests Test 11/18/18 05:50 White Blood Count 4.0 x10^3/uL (4.0-11.0) Red Blood Count 2.70 x10^6/uL (3.50-5.40) Hemoglobin 8.1 g/dL (12.0-15.5) Hematocrit 25.1 % (36.0-47.0) Mean Corpuscular Volume 93 fL (79-100) Mean Corpuscular Hemoglobin 30 pg (25-35) Mean Corpuscular Hemoglobin Concent 32 g/dL (31-37) Red Cell Distribution Width 18.2 % (11.5-14.5) Platelet Count 366 x10^3/uL (140-400) Neutrophils (%) (Auto) 28 % (31-73) Lymphocytes (%) (Auto) 62 % (24-48) Monocytes (%) (Auto) 7 % (0-9) Eosinophils (%) (Auto) 1 % (0-3) Basophils (%) (Auto) 2 % (0-3) Neutrophils # (Auto) 1.1 x10^3uL (1.8-7.7) Lymphocytes # (Auto) 2.5 x10^3/uL (1.0-4.8) Monocytes # (Auto) 0.3 x10^3/uL (0.0-1.1) Eosinophils # (Auto) 0.0 x10^3/uL (0.0-0.7) Basophils # (Auto) 0.1 x10^3/uL (0.0-0.2) Sodium Level 139 mmol/L (136-145) Potassium Level 3.2 mmol/L (3.5-5.1) Chloride Level 108 mmol/L (98-107) Carbon Dioxide Level 21 mmol/L (21-32) Anion Gap 10 (6-14) Blood Urea Nitrogen 4 mg/dL (7-20) Creatinine 0.4 mg/dL (0.6-1.0) Estimated GFR (Cockcroft-Gault) 208.9 BUN/Creatinine Ratio 10 (6-20) Glucose Level 120 mg/dL (70-99) Calcium Level 7.6 mg/dL (8.5-10.1) Total Bilirubin 2.0 mg/dL (0.2-1.0) Aspartate Amino Transf (AST/SGOT) 126 U/L (15-37) Alanine Aminotransferase (ALT/SGPT) 66 U/L (14-59) Alkaline Phosphatase 84 U/L (46-116) Total Protein 4.7 g/dL (6.4-8.2) Albumin 1.4 g/dL (3.4-5.0) Albumin/Globulin Ratio 0.4 (1.0-1.7) Microbiology 11/06/18 Urine Culture - Final, Complete 11/06/18 Urine Culture Result 1 (ALEAH) - Final, Complete 11/06/18 Antimicrobic Susceptibility - Final, Complete Medications Current Medications Aspirin (Children'S Aspirin) 324 mg 1X ONCE PO Last administered on 11/06/18 10:44; Start 11/06/18 at 09:15; Stop 11/06/18 at 09:18; Status DC Morphine Sulfate (Morphine Sulfate) 4 mg PRN Q15MIN PRN IV/SQ PAIN GREATER THAN 3/10 Last administered on 11/06/18 13:14; Start 11/06/18 at 09:15; Stop at 09:14; Status DC Ondansetron HCl (Zofran) 4 mg 1X ONCE IV Last administered on 11/06/18at 10:44 ; Start 11/06/18 at 09:15; Stop 11/06/18 at 09:18; Status DC Iohexol (Omnipaque 350 Mg/ml) 100 ml 1X ONCE IV Last administered on 22:00; Start 11/06/18 at 11:30; Stop 11/06/18 at 11:33; Status DC Info (CONTRAST GIVEN -- Rx MONITORING) 1 each PRN DAILY PRN MC SEE COMMENTS; Start 11/06/18 at 11:45; Stop 11/08/18 at 11:44; Status DC Levofloxacin/ Dextrose 100 ml @ 100 mls/hr 1X ONCE IV Last administered on 15:30; Start 11/06/18 at 13:15; Stop 11/06/18 at 14:14; Status DC Ondansetron HCl (Zofran) 4 mg PRN Q4HRS PRN IV NAUSEA/VOMITING Last administered on 11/19/18 08:10; Start 11/06/18 at 13:30 Zolpidem Tartrate (Ambien) 5 mg PRN QHS PRN PO INSOMNIA Last administered on 20:48; Start 11/06/18 at 13:30 Acetaminophen (Tylenol) 650 mg PRN Q4HRS PRN PO TEMP OVER 100.4F OR MILD PAIN Last administered on 11/06/18 17:10; Start 11/06/18 at 13:30 Al Hydroxide/Mg Hydroxide (Mylanta Plus Xs) 30 ml PRN DAILY PRN PO HEARTBURN / GAS; Start 11/06/18 at 13:30 Clonidine HCl (Catapres) 0.1 mg PRN Q6HRS PRN PO SBP>160 OR DBP>90 Last administered on 11/15/18 20:27; Start 11/06/18 at 13:30 Diphenhydramine HCl (Benadryl) 25 mg PRN Q4HRS PRN IVP ITCHING; Start 11/06/18 at 13:30 Docusate Sodium (Colace) 100 mg PRN BID PRN PO HARD STOOLS Last administered on 11/19/18 08:07; Start 11/06/18 at 13:30 Albuterol Sulfate (Ventolin Neb Soln) 2.5 mg PRN Q4HRS PRN NEB SHORTNESS OF BREATH Last administered on 11/18/18 11:08; Start 11/06/18 at 13:30 Guaifenesin (Robitussin) 200 mg PRN Q4HRS PRN PO COUGH Last administered on 16:43; Start 11/06/18 at 13:30 Lorazepam (Ativan) 0.5 mg PRN Q4HRS PRN PO ANXIETY / AGITATION; Start 11/06/18 at 13:30 Carvedilol (Coreg) 3.125 mg BIDWMEALS PO Last administered on 11/19/18 08:05; Start 11/06/18 at 17:00 Folic Acid (Folic Acid) 1 mg DAILY PO Last administered on 11/19/18 08:04; Start 11/06/18 at 15:00 Losartan Potassium (Cozaar) 100 mg DAILY PO Last administered on 11/19/18 08: 05; Start 11/06/18 at 15:00 Lurasidone HCl (Latuda) 40 mg DAILY PO Last administered on 11/19/18 08:04; Start 11/06/18 at 15:00 Ergocalciferol (Vitamin D2) 50,000 unit WEEKLY PO Last administered on 08:07; Start 11/06/18 at 15:00 Magnesium Oxide (Magnesium Oxide) 200 mg DAILY PO Last administered on 08:04; Start 11/06/18 at 15:00 Rivaroxaban (Xarelto) 20 mg DAILYWSUP PO ; Start 11/06/18 at 17:00; Stop at 17:00; Status DC Sucralfate (Carafate) 1 gm QIDACHS PO Last administered on 11/19/18 07:12; Start 11/06/18 at 16:30 Pantoprazole Sodium (Protonix) 40 mg BIDAC PO Last administered on 11/19/18 07 :12; Start 11/06/18 at 16:30 Info (Anti-Coagulation Monitoring By Pharmacy) 1 each PRN DAILY PRN MC SEE COMMENTS Last administered on 11/17/18at 15:21; Start 11/06/18 at 14:15 Potassium Chloride (KCl Oral Soln) 20 meq 1X ONCE PEG Last administered on at 17:09; Start 11/06/18 at 15:00; Stop 11/06/18 at 15:01; Status DC Heparin Sodium/ Dextrose 500 ml @ 0 mls/hr CONT PRN IV SEE I/O RECORD; Start at 16:30; Status UNV Heparin Sodium (Porcine) (Heparin Sodium) 6,600 unit 1X ONCE IV Last administered on 11/06/18at 17:20; Start 11/06/18 at 16:30; Stop 11/07/18 at 09:48 ; Status DC Heparin Sodium/ Dextrose 500 ml @ 0 mls/hr CONT PRN IV SEE I/O RECORD Last administered on 11/06/18at 17:32; Start 11/06/18 at 16:30; Stop 11/07/18 at 09:48 ; Status DC Heparin Sodium (Porcine) (Heparin Sodium) 2,500 unit PRN Q6HRS PRN IV FOR UFH LEVEL LESS THAN 0.2; Start 11/06/18 at 16:30; Stop 11/07/18 at 09:48; Status DC Heparin Sodium (Porcine) (Heparin Sodium) 1,200 unit PRN Q6HRS PRN IV FOR UFH LEVEL 0.2 - 0.29; Start 11/06/18 at 16:30; Stop 11/07/18 at 09:48; Status DC Morphine Sulfate (Morphine Sulfate) 2 mg Q3HRS PRN IV PAIN Last administered on 11/19/18 08:14; Start 11/06/18 at 19:30 Iohexol (Omnipaque 350 Mg/ml) 100 ml STK-MED ONCE .ROUTE ; Start 11/07/18 at 02: 38; Stop 11/07/18 at 02:39; Status DC Rivaroxaban (Xarelto) 20 mg DAILYWSUP PO Last administered on 11/14/18 16:49; Start 11/07/18 at 10:00; Stop 11/15/18 at 14:03; Status DC Bisacodyl (Dulcolax Tab) 5 mg 1X ONCE PO Last administered on 11/07/18 13:40 ; Start 11/07/18 at 14:00; Stop 11/07/18 at 14:01; Status DC Polyethylene Glycol (miraLAX PACKET) 17 gm DAILY PO Last administered on 08:48; Start 11/07/18 at 14:00 Midazolam HCl (Versed) 2 mg PRN 1X PRN IV PRIOR TO PROCEDURE; Start 11/08/18 at 09:30; Stop 11/09/18 at 09:29; Status DC Ringer's Solution 1,000 ml @ 125 mls/hr Q8H IV Last administered on 11/08/18at 09:28; Start 11/08/18 at 09:24; Stop 11/08/18 at 21:23; Status DC Lidocaine HCl (Xylocaine-Mpf 1% 2ml Vial) 2 ml 1X PRN PRN ID IV START; Start at 09:30; Stop 11/09/18 at 09:29; Status DC Barium Sulfate (Liquid E-Z Paque) 711 ml 1X ONCE PO Last administered on 10:15; Start 11/08/18 at 10:15; Stop 11/08/18 at 10:17; Status DC Ciprofloxacin (Cipro) 500 mg BID PO Last administered on 11/10/18 08:32; Start 11/08/18 at 15:00; Stop 11/10/18 at 14:17; Status DC Iohexol (Omnipaque 300 Mg/ml) 70 ml 1X ONCE IV Last administered on 11/08/18at 08:36; Start 11/08/18 at 17:15; Stop 11/08/18 at 17:16; Status DC Info (CONTRAST GIVEN -- Rx MONITORING) 1 each PRN DAILY PRN MC SEE COMMENTS; Start 11/08/18 at 17:15; Stop 11/10/18 at 17:14; Status DC Lactobacillus Rhamnosus (Culturelle) 1 cap BID PO Last administered on 08:04; Start 11/09/18 at 09:00 Potassium Chloride (Klor-Con) 40 meq 1X ONCE PO Last administered on at 18:15; Start 11/09/18 at 19:00; Stop 11/09/18 at 19:01; Status DC Potassium Chloride (Klor-Con) 40 meq 1X ONCE PO Last administered on at 15:02; Start 11/10/18 at 15:00; Stop 11/10/18 at 15:01; Status DC Meropenem 500 mg/ Sodium Chloride 50 ml @ 100 mls/hr Q8HRS IV Last administered on 11/19/18 05:58; Start 11/10/18 at 15:00 Potassium Chloride (Klor-Con) 40 meq 1X ONCE PO Last administered on 11:32; Start 11/12/18 at 11:00; Stop 11/12/18 at 11:01; Status DC Acetaminophen/ Hydrocodone Bitart (Lortab 5/325) 1 tab PRN Q4HRS PRN PO SEVERE PAIN Last administered on 11/16/18 08:43; Start 11/12/18 at 11:00 Magnesium Hydroxide (Milk Of Magnesia) 2,400 mg PRN DAILY PRN PO CONSTIPATION Last administered on 11/19/18 08:03; Start 11/12/18 at 11:00 Bisacodyl (Dulcolax Supp) 10 mg PRN DAILY PRN SC CONSTIPATION Last administered on 11/12/18 13:07; Start 11/12/18 at 11:00 Tramadol HCl (Ultram) 50 mg PRN Q6HRS PRN PO MODERATE PAIN Last administered on 11/14/18 16:52; Start 11/14/18 at 11:15 Enoxaparin Sodium (Lovenox 40mg Syringe) 40 mg BID SQ Last administered on 11/18 21:42; Start 11/15/18 at 21:00; Stop 11/18/18 at 21:00; Status DC Potassium Chloride (Klor-Con) 40 meq 1X ONCE PO Last administered on at 10:50; Start 11/18/18 at 10:45; Stop 11/18/18 at 10:46; Status DC Active Scripts Active Cozaar (Losartan Potassium) 50 Mg Tablet 100 Mg PO DAILY 30 Days Carafate (Sucralfate) 1 Gm Tablet 1 Gm PO QIDACHS [Pantoprazole] 40 MG Tablet.dr 40 Mg PO BIDAC Reported Carvedilol 3.125 Mg Tablet 3.125 Mg PO BIDWMEALS Xarelto (Rivaroxaban) 20 Mg Tablet 20 Mg PO DAILY Latuda (Lurasidone Hcl) 40 Mg Tablet 40 Mg PO DAILY Vitamin D3 (Cholecalciferol (Vitamin D3)) 50,000 Unit Capsule 50,000 Unit PO WEEKLY Folic Acid 1 Mg Tablet 1 Mg PO DAILY Magnesium Oxide 400 Mg Tablet 250 Mg PO DAILY Vitals/I & O Vital Sign - Last 24 Hours 11/18/18 11/18/18 11/18/18 11/18/18 11:00 11:10 12:21 15:00 Temp 98.0 97.8 98.0 97.8 Pulse 80 85 Resp 18 18 16 B/P (MAP) 108/69 (82) 110/72 (85) Pulse Ox 98 96 95 O2 Delivery Room Air Room Air Room Air 11/18/18 11/18/18 11/18/18 11/18/18 16:32 16:37 19:00 19:45 Temp 98.2 98.2 Pulse 85 83 Resp 18 20 B/P (MAP) 110/72 109/77 (88) Pulse Ox 100 100 O2 Delivery Room Air Room Air O2 Flow Rate 2.0 11/18/18 11/18/18 11/18/18 11/19/18 20:00 20:15 23:01 03:09 Temp 97.5 97.5 97.5 97.5 Pulse 70 71 Resp 20 20 B/P (MAP) 109/74 (86) 140/95 (110) Pulse Ox 100 97 99 O2 Delivery Room Air Room Air Room Air O2 Flow Rate 2.0 11/19/18 11/19/18 11/19/18 11/19/18 07:00 08:00 08:05 08:05 Temp 97.3 97.3 Pulse 67 67 67 Resp 17 B/P (MAP) 140/93 (109) 140/93 140/93 Pulse Ox 98 O2 Delivery Room Air Room Air 11/19/18 11/19/18 08:14 08:44 Resp 18 18 O2 Delivery Room Air Room Air Intake and Output 11/18/18 11/18/18 11/19/18 14:59 22:59 06:59 Intake Total 200 ml 120 ml Balance 200 ml 120 ml Nutrition Consultation Dietary Evaluation: Recommendations by RD: Protein supplementation Comments: continue cardiac/ADA diet per pmhx change Glucerna TID to q day per pt request Expected Outcomes/Goals: PO intake to meet >75% est needs- goal ongoing Interpretation of weight loss: >5% in 1 month Malnutrition Findings: Food and Nutrition Intake (Mod: <75% est energy req 7days Weight Status: Obese JIM HINDS MD Nov 19, 2018 10:13
[2018-11-19] MEDS ORDERED: ANTI-COAG MONITOR BY PHARMACY. MC PRN (10:30)
--- NOTE | 2018-11-19 11:36 | PDOC ---
G I PROGRESS NOTE Reason for Follow-up Abnormal LFT's/nausea Subjective Eating "a little better". No GI complaints otherwise. Physical Exam Lungs clear. RRR Abdomen soft, not tender. Review of Relevant I have reviewed the following items leo (where applicable) has been applied. Labs Laboratory Tests Test 11/18/18 05:50 White Blood Count 4.0 x10^3/uL (4.0-11.0) Red Blood Count 2.70 x10^6/uL (3.50-5.40) Hemoglobin 8.1 g/dL (12.0-15.5) Hematocrit 25.1 % (36.0-47.0) Mean Corpuscular Volume 93 fL (79-100) Mean Corpuscular Hemoglobin 30 pg (25-35) Mean Corpuscular Hemoglobin Concent 32 g/dL (31-37) Red Cell Distribution Width 18.2 % (11.5-14.5) Platelet Count 366 x10^3/uL (140-400) Neutrophils (%) (Auto) 28 % (31-73) Lymphocytes (%) (Auto) 62 % (24-48) Monocytes (%) (Auto) 7 % (0-9) Eosinophils (%) (Auto) 1 % (0-3) Basophils (%) (Auto) 2 % (0-3) Neutrophils # (Auto) 1.1 x10^3uL (1.8-7.7) Lymphocytes # (Auto) 2.5 x10^3/uL (1.0-4.8) Monocytes # (Auto) 0.3 x10^3/uL (0.0-1.1) Eosinophils # (Auto) 0.0 x10^3/uL (0.0-0.7) Basophils # (Auto) 0.1 x10^3/uL (0.0-0.2) Sodium Level 139 mmol/L (136-145) Potassium Level 3.2 mmol/L (3.5-5.1) Chloride Level 108 mmol/L (98-107) Carbon Dioxide Level 21 mmol/L (21-32) Anion Gap 10 (6-14) Blood Urea Nitrogen 4 mg/dL (7-20) Creatinine 0.4 mg/dL (0.6-1.0) Estimated GFR (Cockcroft-Gault) 208.9 BUN/Creatinine Ratio 10 (6-20) Glucose Level 120 mg/dL (70-99) Calcium Level 7.6 mg/dL (8.5-10.1) Total Bilirubin 2.0 mg/dL (0.2-1.0) Aspartate Amino Transf (AST/SGOT) 126 U/L (15-37) Alanine Aminotransferase (ALT/SGPT) 66 U/L (14-59) Alkaline Phosphatase 84 U/L (46-116) Total Protein 4.7 g/dL (6.4-8.2) Albumin 1.4 g/dL (3.4-5.0) Albumin/Globulin Ratio 0.4 (1.0-1.7) Microbiology 11/06/18 Urine Culture - Final, Complete 11/06/18 Urine Culture Result 1 (ALEAH) - Final, Complete 11/06/18 Antimicrobic Susceptibility - Final, Complete Vitals/I & O Vital Sign - Last 24 Hours 11/18/18 11/18/18 11/18/18 11/18/18 12:21 15:00 16:32 16:37 Temp 97.8 97.8 Pulse 85 85 Resp 18 16 18 B/P (MAP) 110/72 (85) 110/72 Pulse Ox 95 O2 Delivery Room Air 11/18/18 11/18/18 11/18/18 11/18/18 19:00 19:45 20:00 20:15 Temp 98.2 98.2 Pulse 83 Resp 20 B/P (MAP) 109/77 (88) Pulse Ox 100 100 100 O2 Delivery Room Air Room Air Room Air O2 Flow Rate 2.0 2.0 11/18/18 11/19/18 11/19/18 11/19/18 23:01 03:09 07:00 08:00 Temp 97.5 97.5 97.3 97.5 97.5 97.3 Pulse 70 71 67 Resp 20 20 17 B/P (MAP) 109/74 (86) 140/95 (110) 140/93 (109) Pulse Ox 97 99 98 O2 Delivery Room Air Room Air Room Air Room Air 11/19/18 11/19/18 11/19/18 11/19/18 08:05 08:05 08:14 08:44 Pulse 67 67 Resp 18 18 B/P (MAP) 140/93 140/93 O2 Delivery Room Air Room Air Intake and Output 11/18/18 11/18/18 11/19/18 14:59 22:59 06:59 Intake Total 200 ml 120 ml Balance 200 ml 120 ml Problem List Problems Medical Problems: (1) Chest pain Status: Acute (2) Elevated bilirubin Status: Acute Assessment Abnormal LFT's, cause uncertain, but with abnormal iron studies. Nausea, cause uncertain. Plan of Care: Continue current Tx, Mgmt Plan of Care Note Liver biopsy in AM. SAGE NORRIS MD Nov 19, 2018 11:36
[2018-11-19] MEDS: guaiFENesin ORAL 200 MG/10 ML LIQUID. PO PRN (16:21)
[2018-11-20] VITALS (12 sets, daily range): BP systolic 108–147; BP diastolic 71–98
[2018-11-20] MEDS: MORPHINE SULFATE 2 MG/ML VIAL. IV PRN ×3 (01:50→13:09)
[2018-11-20] MEDS: ONDANSETRON PF 4 MG/2 ML VIAL. IV PRN ×3 (01:51→13:30)
[2018-11-20] MEDS: MEROPENEM 500 MG in IV NORMAL SALINE 50ML 50 ML IV SCH ×2 (05:29→14:00)
[2018-11-20] MEDS: ERGOCALCIFEROL (VITAMIN D2) 50,000 UNIT CAPSULE. PO SCH (08:28)
[2018-11-20] MEDS: FOLIC ACID 1 MG TABLET. PO SCH (08:28)
[2018-11-20] MEDS: CARVEDILOL 3.125 MG TABLET. PO SCH (08:28)
[2018-11-20] MEDS: LOSARTAN POTASSIUM 50 MG TABLET. PO SCH (08:29)
[2018-11-20] MEDS: LURASIDONE 40 MG TABLET. PO SCH (08:29)
[2018-11-20] MEDS: SUCRALFATE 1 GM TABLET. PO SCH ×2 (08:29→11:14)
[2018-11-20] MEDS: MAGNESIUM OXIDE 400 MG TABLET PO SCH (08:30)
[2018-11-20] MEDS: PANTOPRAZOLE 40 MG TABLET.DR. PO SCH (08:30)
[2018-11-20] MEDS: LACTOBACILLUS RHAMNOSUS GG 1 CAPSULE. PO SCH (08:30)
[2018-11-20] MEDS: POLYETHYLENE GLYCOL 3350 17 GM PACKET. PO SCH (09:00)
--- NOTE | 2018-11-20 09:02 | PDOC ---
PULMONARY PROGRESS NOTES Subjective NOT MORE SOA Vitals Vital Signs Date Time Temp Pulse Resp B/P (MAP) Pulse Ox O2 Delivery O2 Flow Rate FiO2 11/20/18 08:32 18 Room Air 11/20/18 08:29 96 147/93 11/20/18 07:00 98.4 95 98.4 11/19/18 15:00 2.0 General: Alert, Lethargic Lungs: Clear Cardiovascular: S1, S2 Abdomen: Soft, Other (obese) Neuro Exam: Alert Extremities: Other (1+edema) Skin: Warm Medications Active Scripts Medications Dose Route/Sig Max Daily Dose Days Date Category Cozaar (Losartan Potassium) 50 Mg Tablet 100 Mg PO DAILY 30 07/05/18 Rx Carafate (Sucralfate) 1 Gm Tablet 1 Gm PO QIDACHS 04/21/18 Rx [Pantoprazole] 40 MG Tablet.dr 40 Mg PO BIDAC 04/21/18 Rx Carvedilol 3.125 Mg Tablet 3.125 Mg PO BIDWMEALS 04/18/18 Reported Xarelto (Rivaroxaban) 20 Mg Tablet 20 Mg PO DAILY 04/18/18 Reported Latuda (Lurasidone Hcl) 40 Mg Tablet 40 Mg PO DAILY 04/18/18 Reported Vitamin D3 (Cholecalciferol (Vitamin D3)) 50,000 Unit Capsule 50,000 Unit PO WEEKLY 04/18/18 Reported Folic Acid 1 Mg Tablet 1 Mg PO DAILY 04/18/18 Reported Magnesium Oxide 400 Mg Tablet 250 Mg PO DAILY 04/18/18 Reported Impression . 1. The patient with history of pulmonary embolism and deep venous thrombosis, now comes in with chest pain, which is probably related to her anastomotic ulcer. The CT angiogram and V/Q scan have been reviewed and do not show any new blood clot. The CTA shows chronic linear clot and the V/Q scan shows mismatched defect in the left lower lobe. The venous Doppler shows nonocclusive thrombus. 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 We need to closely monitor for any anemia or bleeding while on anticoagulation. 2. No history of hypercoagulable state. 3. Morbid obesity with decreased ambulation. 4. Loss of appetite secondary to ulcer, resulting in decreased oral intake. 5. s/p EGD/ small bowel series/ healed anastomotic ulcer 6. Narcotic seeking Plan . RESP STATUS IS COMPENSATED WILL CONTINUE THE SAME D/W GI BRIDGE WITH LOVENOX OR HEPARIN FOR PROCEDURE XARELTO FOLLOW UP AT REGARDING THE DURATION OF ANTICOAGULATION KASI WORKMAN MD Nov 20, 2018 09:02
--- NOTE | 2018-11-20 09:09 | PDOC ---
PROGRESS NOTES Chief Complaint Chief Complaint Transaminitis most likely secondary to steatohepatitis Chest pain acute coronary syndrome ruled out MDRO - e. coli UTI: 5-10WBC, positive nitrite and LE - Merrem 10 days History of pulmonary embolism last year Old thrombus noted, back on anticoagulation linear filling defects in the bilateral pulmonary arteries which could be secondary to old recanalized embolus. 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 Non adherence to PPI and carafate for ulcer treatment Inability to tolerate PO well persists History of IVC filter placement Obesity with BMI of 34 Mild bilirubinemia Hypokalemia and hyponatremia as a consequence of her poor oral intake, on replacement intractable nausea persists hypertension, suboptimal control History of Present Illness History of Present Illness For liver biopsy today, then pplace dc Patient on Xarelto, hx of PE with IVC filter (at ). PLAN: c p.m. [facility] on discharge Resume xarelto 20 PO qD after liver biopsy Vitals Vitals Vital Signs Date Time Temp Pulse Resp B/P (MAP) Pulse Ox O2 Delivery O2 Flow Rate FiO2 11/20/18 08:32 18 Room Air 11/20/18 08:29 96 147/93 11/20/18 07:00 98.4 95 98.4 11/19/18 15:00 2.0 Physical Exam General: Alert, Oriented X3, Cooperative, mild distress (nausea) Heart: Regular rate (SR), Normal S1, Normal S2, No murmurs, Other (2/6 systolic murmur to LLS border) Lungs: Clear Abdomen: Normal bowel sounds, Soft, No tenderness Extremities: No clubbing, No cyanosis, No edema Skin: No rashes, No significant lesion Assessment and Plan Assessmemt and Plan Problems Medical Problems: (1) Chest pain Status: Acute (2) Elevated bilirubin Status: Acute Comment Review of Relevant I have reviewed the following items leo (where applicable) has been applied. Labs Microbiology 11/06/18 Urine Culture - Final, Complete 11/06/18 Urine Culture Result 1 ([facility]) - Final, Complete 11/06/18 Antimicrobic Susceptibility - Final, Complete Medications Current Medications Aspirin (Children'S Aspirin) 324 mg 1X ONCE PO Last administered on 11/06/18at 10:44; Start 11/06/18 at 09:15; Stop 11/06/18 at 09:18; Status DC Morphine Sulfate (Morphine Sulfate) 4 mg PRN Q15MIN PRN IV/SQ PAIN GREATER THAN 3/10 Last administered on 11/06/18 13:14; Start 11/06/18 at 09:15; Stop at 09:14; Status DC Ondansetron HCl (Zofran) 4 mg 1X ONCE IV Last administered on 11/06/18 10:44 ; Start 11/06/18 at 09:15; Stop 11/06/18 at 09:18; Status DC Iohexol (Omnipaque 350 Mg/ml) 100 ml 1X ONCE IV Last administered on 22:00; Start 11/06/18 at 11:30; Stop 11/06/18 at 11:33; Status DC Info (CONTRAST GIVEN -- Rx MONITORING) 1 each PRN DAILY PRN MC SEE COMMENTS; Start 11/06/18 at 11:45; Stop 11/08/18 at 11:44; Status DC Levofloxacin/ Dextrose 100 ml @ 100 mls/hr 1X ONCE IV Last administered on 15:30; Start 11/06/18 at 13:15; Stop 11/06/18 at 14:14; Status DC Ondansetron HCl (Zofran) 4 mg PRN Q4HRS PRN IV NAUSEA/VOMITING Last administered on 11/20/18 08:31; Start 11/06/18 at 13:30 Zolpidem Tartrate (Ambien) 5 mg PRN QHS PRN PO INSOMNIA Last administered on 20:48; Start 11/06/18 at 13:30 Acetaminophen (Tylenol) 650 mg PRN Q4HRS PRN PO TEMP OVER 100.4F OR MILD PAIN Last administered on 11/06/18 17:10; Start 11/06/18 at 13:30 Al Hydroxide/Mg Hydroxide (Mylanta Plus Xs) 30 ml PRN DAILY PRN PO HEARTBURN / GAS; Start 11/06/18 at 13:30 Clonidine HCl (Catapres) 0.1 mg PRN Q6HRS PRN PO SBP>160 OR DBP>90 Last administered on 11/15/18 20:27; Start 11/06/18 at 13:30 Diphenhydramine HCl (Benadryl) 25 mg PRN Q4HRS PRN IVP ITCHING; Start 11/06/18 at 13:30 Docusate Sodium (Colace) 100 mg PRN BID PRN PO HARD STOOLS Last administered on 11/19/18 08:07; Start 11/06/18 at 13:30 Albuterol Sulfate (Ventolin Neb Soln) 2.5 mg PRN Q4HRS PRN NEB SHORTNESS OF BREATH Last administered on 11/18/18 11:08; Start 11/06/18 at 13:30 Guaifenesin (Robitussin) 200 mg PRN Q4HRS PRN PO COUGH Last administered on 16:21; Start 11/06/18 at 13:30 Lorazepam (Ativan) 0.5 mg PRN Q4HRS PRN PO ANXIETY / AGITATION; Start 11/06/18 at 13:30 Carvedilol (Coreg) 3.125 mg BIDWMEALS PO Last administered on 11/20/18 08:28; Start 11/06/18 at 17:00 Folic Acid (Folic Acid) 1 mg DAILY PO Last administered on 11/20/18 08:28; Start 11/06/18 at 15:00 Losartan Potassium (Cozaar) 100 mg DAILY PO Last administered on 11/20/18 08:29 ; Start 11/06/18 at 15:00 Lurasidone HCl (Latuda) 40 mg DAILY PO Last administered on 11/20/18 08:29; Start 11/06/18 at 15:00 Ergocalciferol (Vitamin D2) 50,000 unit WEEKLY PO Last administered on 08:28; Start 11/06/18 at 15:00 Magnesium Oxide (Magnesium Oxide) 200 mg DAILY PO Last administered on 08:30; Start 11/06/18 at 15:00 Rivaroxaban (Xarelto) 20 mg DAILYWSUP PO ; Start 11/06/18 at 17:00; Stop at 17:00; Status DC Sucralfate (Carafate) 1 gm QIDACHS PO Last administered on 11/20/18 08:29; Start 11/06/18 at 16:30 Pantoprazole Sodium (Protonix) 40 mg BIDAC PO Last administered on 11/20/18 08: 30; Start 11/06/18 at 16:30 Info (Anti-Coagulation Monitoring By Pharmacy) 1 each PRN DAILY PRN MC SEE COMMENTS Last administered on 11/17/18 15:21; Start 11/06/18 at 14:15; Stop at 13:20; Status DC Potassium Chloride (KCl Oral Soln) 20 meq 1X ONCE PEG Last administered on 17:09; Start 11/06/18 at 15:00; Stop 11/06/18 at 15:01; Status DC Heparin Sodium/ Dextrose 500 ml @ 0 mls/hr CONT PRN IV SEE I/O RECORD; Start at 16:30; Status UNV Heparin Sodium (Porcine) (Heparin Sodium) 6,600 unit 1X ONCE IV Last administered on 11/06/18 17:20; Start 11/06/18 at 16:30; Stop 11/07/18 at 09:48 ; Status DC Heparin Sodium/ Dextrose 500 ml @ 0 mls/hr CONT PRN IV SEE I/O RECORD Last administered on 11/06/18 17:32; Start 11/06/18 at 16:30; Stop 11/07/18 at 09:48 ; Status DC Heparin Sodium (Porcine) (Heparin Sodium) 2,500 unit PRN Q6HRS PRN IV FOR UFH LEVEL LESS THAN 0.2; Start 11/06/18 at 16:30; Stop 11/07/18 at 09:48; Status DC Heparin Sodium (Porcine) (Heparin Sodium) 1,200 unit PRN Q6HRS PRN IV FOR UFH LEVEL 0.2 - 0.29; Start 11/06/18 at 16:30; Stop 11/07/18 at 09:48; Status DC Morphine Sulfate (Morphine Sulfate) 2 mg Q3HRS PRN IV PAIN Last administered on 11/20/18 08:32; Start 11/06/18 at 19:30 Iohexol (Omnipaque 350 Mg/ml) 100 ml STK-MED ONCE .ROUTE ; Start 11/07/18 at 02: 38; Stop 11/07/18 at 02:39; Status DC Rivaroxaban (Xarelto) 20 mg DAILYWSUP PO Last administered on 3/26/19at 16:49; Start 11/07/18 at 10:00; Stop 11/15/18 at 14:03; Status DC Bisacodyl (Dulcolax Tab) 5 mg 1X ONCE PO Last administered on 11/07/18at 13:40 ; Start 11/07/18 at 14:00; Stop 11/07/18 at 14:01; Status DC Polyethylene Glycol (miraLAX PACKET) 17 gm DAILY PO Last administered on at 08:48; Start 11/07/18 at 14:00 Midazolam HCl (Versed) 2 mg PRN 1X PRN IV PRIOR TO PROCEDURE; Start 11/08/18 at 09:30; Stop 11/09/18 at 09:29; Status DC Ringer's Solution 1,000 ml @ 125 mls/hr Q8H IV Last administered on 11/08/18at 09:28; Start 11/08/18 at 09:24; Stop 11/08/18 at 21:23; Status DC Lidocaine HCl (Xylocaine-Mpf 1% 2ml Vial) 2 ml 1X PRN PRN ID IV START; Start at 09:30; Stop 11/09/18 at 09:29; Status DC Barium Sulfate (Liquid E-Z Paque) 711 ml 1X ONCE PO Last administered on at 10:15; Start 11/08/18 at 10:15; Stop 11/08/18 at 10:17; Status DC Ciprofloxacin (Cipro) 500 mg BID PO Last administered on 11/10/18at 08:32; Start 11/08/18 at 15:00; Stop 11/10/18 at 14:17; Status DC Iohexol (Omnipaque 300 Mg/ml) 70 ml 1X ONCE IV Last administered on 11/08/18at 08:36; Start 11/08/18 at 17:15; Stop 11/08/18 at 17:16; Status DC Info (CONTRAST GIVEN -- Rx MONITORING) 1 each PRN DAILY PRN MC SEE COMMENTS; Start 11/08/18 at 17:15; Stop 11/10/18 at 17:14; Status DC Lactobacillus Rhamnosus (Culturelle) 1 cap BID PO Last administered on at 08:30; Start 11/09/18 at 09:00 Potassium Chloride (Klor-Con) 40 meq 1X ONCE PO Last administered on 18:15; Start 11/09/18 at 19:00; Stop 11/09/18 at 19:01; Status DC Potassium Chloride (Klor-Con) 40 meq 1X ONCE PO Last administered on 15:02; Start 11/10/18 at 15:00; Stop 11/10/18 at 15:01; Status DC Meropenem 500 mg/ Sodium Chloride 50 ml @ 100 mls/hr Q8HRS IV Last administered on 11/20/18at 05:29; Start 11/10/18 at 15:00 Potassium Chloride (Klor-Con) 40 meq 1X ONCE PO Last administered on 11:32; Start 11/12/18 at 11:00; Stop 11/12/18 at 11:01; Status DC Acetaminophen/ Hydrocodone Bitart (Lortab 5/325) 1 tab PRN Q4HRS PRN PO SEVERE PAIN Last administered on 11/16/18 08:43; Start 11/12/18 at 11:00 Magnesium Hydroxide (Milk Of Magnesia) 2,400 mg PRN DAILY PRN PO CONSTIPATION Last administered on 11/19/18 08:03; Start 11/12/18 at 11:00 Bisacodyl (Dulcolax Supp) 10 mg PRN DAILY PRN NV CONSTIPATION Last administered on 11/12/18 13:07; Start 11/12/18 at 11:00 Tramadol HCl (Ultram) 50 mg PRN Q6HRS PRN PO MODERATE PAIN Last administered on 11/14/18at 16:52; Start 11/14/18 at 11:15 Enoxaparin Sodium (Lovenox 40mg Syringe) 40 mg BID SQ Last administered on 11/18 21:42; Start 11/15/18 at 21:00; Stop 11/18/18 at 21:00; Status DC Potassium Chloride (Klor-Con) 40 meq 1X ONCE PO Last administered on at 10:50; Start 11/18/18 at 10:45; Stop 11/18/18 at 10:46; Status DC Rivaroxaban (Xarelto) 20 mg DAILYWSUP PO ; Start 11/20/18 at 17:00 Info (Anti-Coagulation Monitoring By Pharmacy) 1 each PRN DAILY PRN MC SEE COMMENTS; Start 11/19/18 at 10:30 Active Scripts Active Cozaar (Losartan Potassium) 50 Mg Tablet 100 Mg PO DAILY 30 Days Carafate (Sucralfate) 1 Gm Tablet 1 Gm PO QIDACHS [Pantoprazole] 40 MG Tablet. 40 Mg PO BIDAC Reported Carvedilol 3.125 Mg Tablet 3.125 Mg PO BIDWMEALS Xarelto (Rivaroxaban) 20 Mg Tablet 20 Mg PO DAILY Latuda (Lurasidone Hcl) 40 Mg Tablet 40 Mg PO DAILY Vitamin D3 (Cholecalciferol (Vitamin D3)) 50,000 Unit Capsule 50,000 Unit PO WEEKLY Folic Acid 1 Mg Tablet 1 Mg PO DAILY Magnesium Oxide 400 Mg Tablet 250 Mg PO DAILY Vitals/I & O Vital Sign - Last 24 Hours 11/19/18 11/19/18 11/19/18 11/19/18 11:00 11:40 11:43 15:00 Temp 97.7 97.7 98.2 97.7 97.7 98.2 Pulse 74 74 79 Resp 17 18 17 B/P (MAP) 131/87 (102) 131/87 (102) 141/94 (110) Pulse Ox 100 100 100 O2 Delivery Room Air Room Air Room Air O2 Flow Rate 2.0 2.0 11/19/18 11/19/18 11/19/18 11/19/18 16:17 16:17 19:00 19:53 Temp 97.5 97.5 Pulse 79 81 Resp 18 20 20 B/P (MAP) 141/94 111/75 (87) Pulse Ox 93 O2 Delivery Room Air Room Air Room Air 11/19/18 11/19/18 11/20/18 11/20/18 19:55 23:00 01:50 02:20 Temp 98.0 98.0 Pulse 64 Resp 20 20 20 B/P (MAP) 129/85 (100) Pulse Ox 93 O2 Delivery Room Air Room Air Room Air Room Air 11/20/18 11/20/18 11/20/18 11/20/18 03:02 07:00 08:28 08:29 Temp 97.6 98.4 97.6 98.4 Pulse 80 96 96 96 Resp 20 17 B/P (MAP) 115/80 (92) 147/93 (111) 147/93 147/93 Pulse Ox 98 95 O2 Delivery Room Air Room Air 11/20/18 08:32 Resp 18 O2 Delivery Room Air Intake and Output 11/19/18 11/19/18 11/20/18 14:59 22:59 06:59 Intake Total 450 ml 390 ml 50 ml Balance 450 ml 390 ml 50 ml Nutrition Consultation Dietary Evaluation: Recommendations by RD: Protein supplementation Comments: continue cardiac/ADA diet per pmhx change Glucerna TID to q day per pt request Expected Outcomes/Goals: PO intake to meet >75% est needs- goal ongoing Interpretation of weight loss: >5% in 1 month Malnutrition Findings: Food and Nutrition Intake (Mod: <75% est energy req 7days Weight Status: Obese LUANN ROSENBAUM MD Nov 20, 2018 09:09
--- NOTE | 2018-11-20 09:17 | PDOC ---
Subjective: Subjective: Feeling okay, says ate more over the weekend. Objective: Vital Signs: Vital Signs Date Time Temp Pulse Resp B/P (MAP) Pulse Ox O2 Delivery O2 Flow Rate FiO2 11/20/18 08:32 18 Room Air 11/20/18 08:29 96 147/93 11/20/18 07:00 98.4 95 98.4 11/19/18 15:00 2.0 PE: GEN: NAD LUNGS: CTAB HEART: RRR ABD: S/ND/NT NEURO/PSYCH: A & O 3, smiled a little A/P: Anorexia - better? Chronic pain Abnormal LFTs H/o PE/DVTs - last Lovenox dose yesterday a.m. -- Liver biopsy today. Recs for resuming anti-coagulation per IR/pulm. SHAMIR DAMON Nov 20, 2018 09:17
[2018-11-20 09:25] LABS: PROTHROMBIN TIME PATIENT 14.4 SEC (11.7-14.0)
[2018-11-20] MEDS ORDERED: LIDOCAINE WITH 8.4% SOD BICARB 3 ML DISP.SYRIN. ONE (09:37)
[2018-11-20] MEDS ORDERED: GELATIN SPONGE SIZE 12-7MM SPONGE. ONE (09:37)
[2018-11-20] MEDS ORDERED: MIDAZOLAM HCL/PF 2 MG/2 ML VIAL. ONE (09:40)
[2018-11-20] MEDS ORDERED: fentaNYL PF VIAL 100 MCG/2 ML VIAL ONE (09:40)
[2018-11-20] MEDS ORDERED: MORPHINE SULFATE 10 MG/ML VIAL. ONE (09:47)
[2018-11-20] MEDS ORDERED: GELATIN SPONGE SIZE 12-7MM SPONGE. TP ONE (10:00)
[2018-11-20] MEDS ORDERED: MIDAZOLAM HCL/PF 2 MG/2 ML VIAL. IV ONE (10:00)
[2018-11-20] MEDS ORDERED: MORPHINE SULFATE 10 MG/ML VIAL. IV ONE (10:00)
[2018-11-20] MEDS ORDERED: LIDOCAINE WITH 8.4% SOD BICARB 3 ML DISP.SYRIN. IJ ONE (10:00)
[2018-11-20] MEDS: MAGNESIUM HYDROXIDE 2,400 MG/30 ML ORAL.SUSP. PO PRN (11:14)
[2018-11-20] MEDS ORDERED: ACET325T9 PO (12:44)
[2018-11-20] MEDS ORDERED: DOCU-109 PO (12:44)
[2018-11-20] MEDS ORDERED: LACT1CAP19 PO (12:44)
[2018-11-20] MEDS ORDERED: HYDR-2761 PO (12:44)
[2018-11-20] MEDS ORDERED: CLON0.1T12 PO (12:44)
[2018-11-20] MEDS ORDERED: LORA0.5T96 PO (12:44)
[2018-11-20] MEDS ORDERED: POLY17PO28 PO (12:44)
[2018-11-20] MEDS ORDERED: ALBU2.5V8 NEB (12:44)
--- NOTE | 2018-11-20 12:46 | SNU/HH DC ---
DISCHARGE ORDERS DISCHARGE INFORMATION: DISCHARGE DATE: Nov 20, 2018 FINAL DIAGNOSIS Problems Medical Problems: (1) Chest pain Status: Acute (2) Elevated bilirubin Status: Acute CONDITION ON DISCHARGE: Stable CODE STATUS: Code Status: Full FCI: SNF STAY <30 DAYS: Yes POST DISCHARGE ORDERS: ACTIVITY ORDERS: Activity as tolerated WEIGHT BEARING STATUS: Full weight bearing DIET AFTER DISCHARGE: Regular CHECKS AFTER DISCHARGE: CHECKS AFTER DISCHARGE: Check blood press - daily COMMENTS: flank FOLLOW-UP: PHYSICIAN FOLLOW-UP: Gastroenterology - Dr. Jagdeep Watt ADDITIONAL FOLLOW-UP: [facility] - Hematology/Oncology TREATMENT/EQUIPMENT ORDERS: ADAPTIVE EQUIPMENT NEEDED: None Physical Therapy For: Evalulation/Treatment Occupational Therapy For: Evaluation/Treatment DISCHARGE MEDICATIONS: Home Meds Active Scripts Lorazepam (ATIVAN) 0.5 Mg Tablet, 0.5 MG PO PRN Q6HRS PRN for ANXIETY / AGITATION for 15 Days, #45 TAB Prov:LUANN ROSENBAUM MD 11/20/18 Polyethylene Glycol 3350 (POLYETHYLENE GLYCOL 3350) 17 Gm Powd.pack, 17 GM PO PRN DAILY PRN for CONSTIPATION for 30 Days, #30 PKT Prov:LUANN ROSENBAUM MD 11/20/18 Docusate Sodium (COLACE) 100 Mg Capsule, 100 MG PO PRN BID PRN for HARD STOOLS for 30 Days, #60 CAP Prov:LUANN ROSENBAUM MD 11/20/18 Lactobacillus Rhamnosus Gg (CULTURELLE) 1 Each Cap.sprink, 1 CAP PO BID for diarrhea for 7 Days, #14 CAP Prov:LUANN ROSENBAUM MD 11/20/18 Hydrocodone Bit/Acetaminophen (HYDROCODONE-APAP 5-325 ) 1 Tab Tablet, 1 TAB PO PRN Q6HRS PRN for SEVERE PAIN for 6 Days, #18 TAB Prov:LUANN ROSENBAUM MD 11/20/18 Acetaminophen (TYLENOL) 325 Mg Tablet, 650 MG PO PRN Q4HRS PRN for TEMP OVER 100.4F OR MILD PAIN for 30 Days, #60 TAB Prov:LUANN ROSENBAUM MD 11/20/18 Clonidine Hcl (CATAPRES) 0.1 Mg Tablet, 0.1 MG PO PRN Q6HRS PRN for SBP>160 OR DBP>90 for 30 Days, #90 TAB SBP > 160 or DBP > 90 Prov:LUANN ROSENBAUM MD 11/20/18 Albuterol Sulfate (Proair Hfa) 8.5 Gm Hfa.aer.ad, 2.5 MG NEB PRN Q4HRS PRN for SHORTNESS OF BREATH for 30 Days, #1 INHALER Prov:LUANN ROSENBAUM MD 11/20/18 Losartan Potassium (COZAAR ) 50 Mg Tablet, 100 MG PO DAILY for hypertension for 30 Days, #60 TAB Prov:DANITA ZENDEJAS MD 07/05/18 Sucralfate (CARAFATE) 1 Gm Tablet, 1 GM PO QIDACHS, #80 TAB Prov:ELENO JAMES MD 04/21/18 [Pantoprazole] 40 MG TABLET.DR [place] Conflict Check, 40 MG PO BIDAC, #60 1 Refill Prov:ELENO JAMES MD 04/21/18 Reported Medications Carvedilol (CARVEDILOL ) 3.125 Mg Tablet, 3.125 MG PO BIDWMEALS, TAB 04/18/18 Rivaroxaban (XARELTO) 20 Mg Tablet, 20 MG PO DAILY, TAB 04/18/18 Lurasidone Hcl (LATUDA) 40 Mg Tablet, 40 MG PO DAILY, TAB 04/18/18 Cholecalciferol (Vitamin D3) (VITAMIN D3) 50,000 Unit Capsule, 89970 UNIT PO WEEKLY, CAP 04/18/18 Folic Acid (FOLIC ACID) 1 Mg Tablet, 1 MG PO DAILY, TAB 04/18/18 Magnesium Oxide (MAGNESIUM OXIDE) 400 Mg Tablet, 250 MG PO DAILY, TAB 04/18/18 LUANN ROSENBAUM MD Nov 20, 2018 12:46
--- NOTE | 2018-11-20 13:08 | PDOC3 ---
Discharge Summary Visit Information Date of Admission: Nov 06, 2018 Date of Discharge: Nov 20, 2018 Admitting Diagnosis: Hyperbilirubinemia Final Diagnosis Problems Medical Problems: (1) Chest pain Status: Acute (2) Elevated bilirubin Status: Acute Brief Hospital Course Allergies Allergies Coded Allergies Type Severity Reaction Last Updated Verified banana Allergy Severe SWELLING TO MOUTH AND TONGUE 04/20/18 Yes cephalexin Allergy Severe "SWELLING TO MOUTH" 04/20/18 Yes shrimp Allergy Severe SWELLING TO MOUTH AND TONGUE 04/20/18 Yes fentanyl Allergy Intermediate 07/02/18 Yes I S O L A T I O N *CONTACT* Allergy Unknown 11/10/18 Yes Vital Signs Vital Signs Date Time Temp Pulse Resp B/P (MAP) Pulse Ox O2 Delivery O2 Flow Rate FiO2 11/20/18 12:15 96 112/88 (96) 11/20/18 11:00 98.2 17 98 Room Air 98.2 11/20/18 10:16 2.0 Lab Results Laboratory Tests Test 11/20/18 09:00 Prothrombin Time 14.4 SEC (11.7-14.0) Prothromb Time International Ratio 1.2 (0.8-1.1) Activated Partial Thromboplast Time 34 SEC (24-38) Laboratory Tests Test 11/20/18 09:00 Prothrombin Time 14.4 SEC (11.7-14.0) Prothromb Time International Ratio 1.2 (0.8-1.1) Activated Partial Thromboplast Time 34 SEC (24-38) Brief Hospital Course Ms Gemma Palencia is a 43 y/o female w/ PMHx HTN, PE, DVT s/p IVF filter, GERD, hepatic steatosis, DM, s/p Dorcas-en-Y who was in her usual state of health until the day prior to her admission when she started complaining of midsternal chest discomfort. The patient denied any radiation to the jaw or the arm. The patient denied palpitations no shortness of breath has been reported no syncopal episodes no nausea vomiting or sensation of impending doom was reported by the patient and the beginning of her discomfort. The patient was sitting and not performing strenuous exercises at the beginning of her symptoms. The episodes have been on and off over the last 24 hours at 10-15 minute intervals. The patient denies recent upper respiratory tract infection symptoms no coughing no sneezing no cold-like symptoms no neck stiffness no headache no blurred vision has been reported. Of noticed that patient has a history of gastric bypass and has as a consequence unfortunately GERD. She was found with normal cardiac function, seen by cardiology. She was also found with bilirubin of 3 and a MDRO UTI. Seen by pulm for h/o PE, CTPA shows some recanalization, her xarelto was restarted. Seen 03/2018 and 06/2018 for chest pain, vomiting, coughing, EGD in 03/2018 showed reflux esophagitis and Dorcas-en-Y anatomy w/ anastomotic ulcer. She has difficulty with compliance w/ sucralfate and PPI at home. She was seen by GI and had hemochromatosis mutation (carrier only) and otherwise labs not revealing of etiology and therefore underwent liver biopsy on 11/20/18. As she was very deconditioned 2/2 her UTI with sepsis she was seen fit for acute rehabilitation by physical and occupational therapy and [facility]. Greater than 30 minutes spent on discharge PLAN: c p.m. [facility] on discharge Resume xarelto 20 PO qD after liver biopsy Transaminitis most likely secondary to steatohepatitis Chest pain acute coronary syndrome ruled out MDRO - e. coli UTI: 5-10WBC, positive nitrite and LE - Merrem 10 days History of pulmonary embolism last year Old thrombus noted, back on anticoagulation linear filling defects in the bilateral pulmonary arteries which could be secondary to old recanalized embolus. 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 Non adherence to PPI and carafate for ulcer treatment Inability to tolerate PO well persists History of IVC filter placement Obesity with BMI of 34 Mild bilirubinemia Hypokalemia and hyponatremia as a consequence of her poor oral intake, on replacement intractable nausea persists hypertension, suboptimal control Discharge Information Condition at Discharge: Improved Follow Up: Weeks (2) Disposition/Orders: D/C to Another Facility ([facility]) Scheduled Carvedilol (Carvedilol ) 3.125 Mg Tablet, 3.125 MG PO BIDWMEALS, (Reported) Entered as Reported by: Cait Powers on 04/18/18 191 Last Action: Continued on 11/06/18 1324 by COY HOLDEN MD Cholecalciferol (Vitamin D3) (Vitamin D3) 50,000 Unit Capsule, 50,000 UNIT PO WEEKLY, (Reported) Entered as Reported by: Cait Powers on 04/18/181915 Last Action: Converted on 11/06/181323 by COY HOLDEN MD Folic Acid (Folic Acid) 1 Mg Tablet, 1 MG PO DAILY, (Reported) Entered as Reported by: Cait Powers on 04/18/181915 Last Action: Continued on 11/06/181323 by COY HOLDEN MD Lactobacillus Rhamnosus Gg (Culturelle) 1 Each Cap.sprink, 1 CAP PO BID for diarrhea for 7 Days, #14 Prescribed by: LUANN ROSENBAUM MD on 11/20/18 1244 Losartan Potassium (Cozaar ) 50 Mg Tablet, 100 MG PO DAILY for hypertension for 30 Days, #60 Prescribed by: DANITA ZENDEJAS MD on 07/05/18 1134 Last Action: Continued on 11/06/181323 by COY HOLDEN MD Lurasidone Hcl (Latuda) 40 Mg Tablet, 40 MG PO DAILY, (Reported) Entered as Reported by: Cait Powers on 04/18/181915 Last Action: Continued on 11/06/181323 by COY HOLDEN MD Magnesium Oxide (Magnesium Oxide) 400 Mg Tablet, 250 MG PO DAILY, (Reported) Entered as Reported by: Cait Powers on 04/18/181915 Last Action: Converted on 11/06/181323 by COY HOLDEN MD Rivaroxaban (Xarelto) 20 Mg Tablet, 20 MG PO DAILY, (Reported) Entered as Reported by: Cait Powers on 04/18/181915 Last Action: Converted on 11/06/181323 by COY HOLDEN MD Sucralfate (Carafate) 1 Gm Tablet, 1 GM PO QIDACHS, #80 Prescribed by: ELENO JAMES on 04/21/181334 Last Action: Converted on 11/06/181323 by COY HOLDEN MD [Pantoprazole] 40 MG TABLET.DR, 40 MG PO BIDAC, #60 Ref 1 Prescribed by: ELENO JAMES on 04/21/181334 Last Action: Converted on 11/06/18 1324 by COY HOLDEN MD Scheduled PRN Acetaminophen (Tylenol) 325 Mg Tablet, 650 MG PO PRN Q4HRS PRN for TEMP OVER 100.4F OR MILD PAIN for 30 Days, #60 Prescribed by: LUANN ROSENBAUM MD on 11/20/18 1244 Albuterol Sulfate (Proair Hfa) 8.5 Gm Hfa.aer.ad, 2.5 MG NEB PRN Q4HRS PRN for SHORTNESS OF BREATH for 30 Days, #1 Prescribed by: LUANN ROSENBAUM MD on 11/20/18 1244 Clonidine Hcl (Catapres) 0.1 Mg Tablet, 0.1 MG PO PRN Q6HRS PRN for SBP>160 OR DBP>90 for 30 Days, #90 SBP > 160 or DBP > 90 Prescribed by: LUANN ROSENBAUM MD on 11/20/18 1244 Docusate Sodium (Colace) 100 Mg Capsule, 100 MG PO PRN BID PRN for HARD STOOLS for 30 Days, #60 Prescribed by: LUANN ROSENBAUM MD on 11/20/18 1244 Hydrocodone Bit/Acetaminophen (Hydrocodone-Apap 5-325 ) 1 Tab Tablet, 1 TAB PO PRN Q6HRS PRN for SEVERE PAIN for 6 Days, #18 Prescribed by: LUANN ROSENBAUM MD on 11/20/18 1244 Lorazepam (Ativan) 0.5 Mg Tablet, 0.5 MG PO PRN Q6HRS PRN for ANXIETY / AGITATION for 15 Days, #45 Prescribed by: LUANN ROSENBAUM MD on 11/20/18 1244 Polyethylene Glycol 3350 (Polyethylene Glycol 3350) 17 Gm Powd.pack, 17 GM PO PRN DAILY PRN for CONSTIPATION for 30 Days, #30 Prescribed by: LUANN ROSENBAUM MD on 11/20/18 1244 LUANN ROSENBAUM MD Nov 20, 2018 13:08
--- NOTE | 2018-11-20 13:25 | NUR ---
SW following pt. SW phoned and faxed orders to [facility]. Pt's choice and rights forms signed by pt's and copies on chart. Pt aware of plan and agreeable. Pt's reported he will bring Latuda to [facility] as well. Pt will transport via [employer] [facility] between [id number]. Packet on chart and discussed with RN.
[2018-11-20] MEDS ORDERED: RIVAROXABAN 10 MG TABLET. PO SCH (17:00)
[2018-11-20 18:09] LABS: ARSENIC UR None Detected ug/L (0-50); CADMIUM UR 3.1 ug/L (None detected); LEAD UR None Detected ug/L (0-49); MERCURY UR None Detected ug/L (0-19)
--- NOTE | 2018-11-21 08:41 | RAD ---
CT-guided liver biopsy. 11/21/2018 8:36 AM Indication: abnormal LFTs, ?hemochromatosis Discussion: The risks and benefits of the procedure, including but not limited to, bleeding and infection were discussed patient. Informed consent was obtained. The patient was brought to the CT scanner and placed in the prone position. A timeout procedure was performed. CT imaging demonstrates hypodense liver concerning for hepatic steatosis. The overlying soft tissues were prepped and draped using maximum sterile barrier technique. 1% lidocaine without epinephrine was administered for local anesthesia. Under intermittent CT guidance, an 17-gauge needle was advanced into the inferior right liver. 2 core biopsies were obtained. Gelfoam embolization of the biopsy tract was performed as the guiding needle was removed. Manual pressure was held. Repeat CT imaging demonstrates no significant hemorrhage or other immediate complication. Post biopsy changes are noted. The procedure was performed under conscious sedation including continuous cardiopulmonary monitoring via dedicated sedation nurse. [id number] sedation time: 20 minutes Impression: Successful CT-guided bone marrow biopsy of the inferior right liver PQRS Compliance Statement: One or more of the following individualized dose reduction techniques were utilized for this examination: 1. Automated exposure control 2. Adjustment of the mA and/or kV according to patient size 3. Use of iterative reconstruction technique
--- NOTE | 2018-11-21 15:06 | PATHOLOGY ---
[facility] Accession Number: [id number] . 01 Material submitted: . LIVER BIOPSY . 01 Clinical history: . Elevated LFTs,? Hemochromatosis . 02 Diagnosis: Liver, needle biopsy: - Prominent steatosis without significant fibrosis or iron accumulation. (JPM:hawk; 11/21/2018) QMS/11/21/2018 . 02 Comment: Sections of the liver needle biopsy reveal segments of liver tissue. The liver parenchyma shows prominent steatosis. The trichrome stain shows no significant parenchymal fibrosis. A reticulin stain shows an intact reticulin framework. An iron stain shows no significant parenchymal iron accumulation. A PAS stain with and without diastase shows no PAS positive diastase resistant inclusions within periportal hepatocytes. There is no evidence of malignancy. This is a preliminary report. Definitive diagnosis is pending expert consultation. The latter will be the subject of an addendum report. (JPM:hawk; 11/21/2018) . Special stains performed: Trichrome stain, reticulin stain, iron stain, PAS, and PAS with diastase. . 02 Electronically signed: . Amaury Flores MD, Pathologist NPI- [id number] . 01 Gross description: . The specimen is received in formalin, labeled "[place], Gemma, liver BX", are 2 lawler-yellow needle cores measuring 1.4 cm and 0.5 cm in length with an average 0.1 cm diameter. The specimen is entirely submitted in A1-A2. ([facility]; 11/20/2018) SHS/SHS . 02 Pathologist provided ICD-10: K76.0 . 02 CPT . 921620, 429318, 601616, 967201, 458816, 165834 Specimen Comment: A courtesy copy of this report has been sent to Specimen Comment: [phone], , . Specimen Comment: Report sent to ,DR HOLDEN / DR NUNO Performed at: 01 [facility] [address] [facility] [facility] [address], [place] [id number] MD Marvin Adam MD Phone: [phone] Performed at: 02 [facility] [address] [place], [place] [id number] MD Amaury Flores MD Phone: [phone]
== END 2018-11-20 16:00 | DRG 871 ==
LOC: ER 08:59 → 2 SOUTH 13:35 → 5 NORTH 11-15 00:56
PROVIDERS: ADMIT Internal Medicine; ATTEND Internal Medicine
PROC: 0DJ08ZZ Inspection of Upper Intestinal Tract, Via Natural or Artificial Opening Endoscopic (ICD-10-PCS; principal; 2018-11-08 10:00)
PROC: 0FB13ZX Excision of Right Lobe Liver, Percutaneous Approach, Diagnostic (ICD-10-PCS; 2018-11-20)
DX: A41.9 Sepsis, unspecified organism (principal); E43 Unspecified severe protein-calorie malnutrition; E87.1 Hypo-osmolality and hyponatremia; N39.0 Urinary tract infection, site not specified; K28.9 Gastrojejunal ulcer, unspecified as acute or chronic, without hemorrhage or perforation; K21.0 Gastro-esophageal reflux disease with esophagitis; K75.81 Nonalcoholic steatohepatitis (NASH); E87.6 Hypokalemia; D64.9 Anemia, unspecified; E11.9 Type 2 diabetes mellitus without complications; E66.01 Morbid (severe) obesity due to excess calories; E83.119 Hemochromatosis, unspecified; F32.9 Major depressive disorder, single episode, unspecified; B96.20 Unspecified Escherichia coli [E. coli] as the cause of diseases classified elsewhere; R07.89 Other chest pain; G89.29 Other chronic pain; I10 Essential (primary) hypertension; K59.00 Constipation, unspecified; Z98.51 Tubal ligation status; Z95.828 Presence of other vascular implants and grafts; Z90.49 Acquired absence of other specified parts of digestive tract; Z98.84 Bariatric surgery status; Z91.013 Allergy to seafood; Z88.8 Allergy status to other drugs, medicaments and biological substances; Z91.018 Allergy to other foods; Z79.01 Long term (current) use of anticoagulants; Z86.718 Personal history of other venous thrombosis and embolism; Z86.711 Personal history of pulmonary embolism; Z87.11 Personal history of peptic ulcer disease; Z82.49 Family history of ischemic heart disease and other diseases of the circulatory system; Z68.34 Body mass index [BMI] 34.0-34.9, adult
CPT/HCPCS: 36415; 36569; 43235; 47000; 70470; 71045; 71275; 74250; 76700; 77012; 78582; 80048; 80053; 80076; 81001; 81256; 82553; 83540; 83550; 83690; 83880; 84439; 84443; 84484; 85007; 85025; 85520; 85610; 85730; 86038; 86255; 86644; 86645; 86663; 86664; 86705; 86709; 86803; 87086; 87186; 87340; 88307; 88313; 93005; 93308; 93320; 93325; 93970; 94640; 94760; 96374; 99152; A9540; A9558; J1644; J1650; J1956; J2185; J2250; J2270; J2405; J7120; J7613; Q9967; 97110; 97116; 97530; 97535

== ENCOUNTER 2018-12-19 13:39 | Inpatient (IN) | payer MEDICARE ==
[~2018-12-19] VITALS: Ht 167.6 cm; Wt 81.6 kg
[~2018-12-19 13:39] MED LIST changes: +ACET325T9 PO; +ALBU2.5V8 NEB; +CLON0.1T12 PO; +DOCU-109 PO; +HYDR-2761 PO; +LACT1CAP19 PO; +LORA0.5T96 PO; +POLY17PO28 PO
[2018-12-19] MEDS ORDERED: IV NORMAL SALINE 1000ML BAG 1,000 ML IV ONE ×2 (14:00→14:30)
[2018-12-19 14:07] LABS: BASO % 1 % (0-3); EOS % 0 % (0-3); HEMATOCRIT 31.5 % (36.0-47.0); LYMPH # 2.2 x10^3/uL (1.0-4.8); LYMPH % 30 % (24-48); MEAN CORPUSCULAR HEMOGLOBIN 32 pg (25-35); MEAN CORPUSCULAR HGB CONC 32 g/dL (31-37); MEAN CORPUSCULAR VOLUME 102 fL (79-100); MONO # 0.5 x10^3/uL (0.0-1.1); MONO % 7 % (0-9); NEUT # 4.8 x10^3uL (1.8-7.7); NEUT % 63 % (31-73); PLATELET COUNT 454 x10^3/uL (140-400); RED CELL DISTRIBUTION WIDTH 17.6 % (11.5-14.5); WHITE BLOOD COUNT 7.5 x10^3/uL (4.0-11.0)
[2018-12-19] MEDS ORDERED: LIDOCAINE 1% Multi-Dose 20 ML VIAL. ONE (14:11)
[2018-12-19 14:17] LABS: PROTHROMBIN TIME PATIENT 53.3 SEC (11.7-14.0)
[2018-12-19 14:23] LABS: CALCIUM 8.4 mg/dL (8.5-10.1); CREATININE 1.9 mg/dL (0.6-1.0); GFR 34.6; POTASSIUM 5.2 mmol/L (3.5-5.1)
[2018-12-19] MEDS ORDERED: ONDANSETRON PF 4 MG/2 ML VIAL. ONE (14:27)
[2018-12-19] MEDS ORDERED: NOREPINEPHRIN 8MG/250ML PREMIX 250 ML IV ONE ×2 (14:30)
[2018-12-19 14:38] LABS: ALBUMIN 1.7 g/dL (3.4-5.0); ALBUMIN/GLOBULIN RATIO 0.5 (1.0-1.7); MAGNESIUM 1.8 mg/dL (1.8-2.4); TOTAL BILIRUBIN 3.8 mg/dL (0.2-1.0); TOTAL PROTEIN 5.4 g/dL (6.4-8.2)
[2018-12-19] MEDS ORDERED: fentaNYL PF VIAL 100 MCG/2 ML VIAL ONE (14:38)
--- NOTE | 2018-12-19 14:53 | EKG ---
[facility] [address] [place] [address] Test Date: 2018-12-19 Test Time: 13:46:03 Pat Name: MADELEINE HELM Department: Room: Gender: F Fern Gatherer: : 1975 Requested By: MAYCOL BLANCO Order Number: [id number] Reading MD: Yousuf Delgado Measurements Intervals Huger Rate: 157 P: -59 IL: 96 QRS: 10 QRSD: 84 T: 54 QT: 278 QTc: 456 Interpretive Statements SINUS TACHYCARDIA NONSPECIFIC ST-T WAVE CHANGES. Electronically Signed On 12-22-2018 9:43:14 CDT by Yousuf Delgado
--- NOTE | 2018-12-19 14:53 | RAD ---
EXAM: CHEST 1 VIEW History: Central line, chest pain COMPARISON: 11/06/2018 TECHNIQUE: Single portable radiograph of the chest FINDINGS: Low lung volumes and technique accentuates heart size and pulmonary vascularity. Right subclavian line is identified with the tip in the distal SVC region.. No pneumothorax. IMPRESSION: No radiographic evidence of an acute cardiopulmonary process. Electronically signed by: John Huston MD (12/19/2018 2:47 PM) [facility]
[2018-12-19] MEDS ORDERED: diphenhydrAMINE 50 MG/ML VIAL ONE (15:00)
[2018-12-19] MEDS ORDERED: MEROPENEM 1 GM in IV NORMAL SALINE 100ML 100 ML IV SCH (15:00)
[2018-12-19] MEDS ORDERED: ADENOSINE 6 MG/2 ML VIAL. IV ONE (15:30)
[2018-12-19] MEDS ORDERED: HYDROCORTISONE SODIUM SUCCINATE IV ONE (17:00)
[2018-12-19] MEDS ORDERED: VANCOMYCIN 1 GM in IV NORMAL SALINE 250ML 250 ML IV ONE (17:00)
--- NOTE | 2018-12-19 17:19 | RAD ---
EXAM: Head CT without contrast. HISTORY: Weakness. TECHNIQUE: Computed tomographic images of the head were obtained without contrast. *One or more of the following individualized dose reduction techniques were utilized for this examination: 1. Automated exposure control. 2. Adjustment of the mA and/or kV according to patient size. 3. Use of iterative reconstruction technique. COMPARISON: 11/09/2018. FINDINGS: There is no acute or subacute extra-axial or intraparenchymal hemorrhage. There is no mass effect or midline shift. There is no hydrocephalus. The sherwood-white matter differentiation pattern is intact. The visualized orbits, paranasal sinuses mastoid air cells are unremarkable. No suspicious calvarial lesion is seen. IMPRESSION: No acute intracranial findings. Note is made that MRI is more sensitive for acute infarction. Electronically signed by: Juana Licea MD (12/19/2018 4:24 PM) [facility]
[2018-12-19] MEDS ORDERED: MORPHINE SULFATE 2 MG/ML VIAL. ONE (17:23)
[2018-12-19 18:13] LABS: BILIRUBIN,URINE LARGE (NEG); CLARITY,URINE CLEAR; COLOR,URINE RED
[2018-12-19 18:14] LABS: BACTERIA,URINE 0 /HPF (0-FEW); NITRITE,URINE POSITIVE (NEG); PH,URINE 5.5; PROTEIN,URINE NEGATIVE (NEG-TRACE); RBC,URINE 0 /HPF (0-2)
[2018-12-19 18:15] LABS: HYALINE CASTS, URINE MANY /HPF
[2018-12-19] MEDS ORDERED: MORPHINE SULFATE 2 MG/ML VIAL. IV PRN (18:15)
[2018-12-19 19:10] LABS: ALBUMIN 1.3 g/dL (3.4-5.0); DIRECT BILIRUBIN 2.8 mg/dL (0.0-0.2); TOTAL BILIRUBIN 3.2 mg/dL (0.2-1.0); TOTAL PROTEIN 4.1 g/dL (6.4-8.2)
[2018-12-19 19:15] VITALS: BP_SYST 80
[2018-12-19] MEDS: NOREPINEPHRIN 8MG/250ML PREMIX 250 ML IV PRN ×2 (19:25→23:57)
[2018-12-19] MEDS: MORPHINE SULFATE 4 MG/ML VIAL. IV PRN ×2 (19:25→21:21)
[2018-12-19] MEDS ORDERED: LIDOCAINE 1% PF 5 ML VIAL. ONE (19:58)
[2018-12-19 20:39] LABS: CALCIUM 7.1 mg/dL (8.5-10.1); CREATININE 1.5 mg/dL (0.6-1.0); GFR 45.4
[2018-12-19 20:45] LABS: BASO % 0 % (0-3); EOS # 0.1 x10^3/uL (0.0-0.7); EOS % 1 % (0-3); HEMATOCRIT 26.7 % (36.0-47.0); HEMOGLOBIN 8.3 g/dL (12.0-15.5); LYMPH # 0.9 x10^3/uL (1.0-4.8); LYMPH % 15 % (24-48); MEAN CORPUSCULAR HEMOGLOBIN 32 pg (25-35); MEAN CORPUSCULAR HGB CONC 31 g/dL (31-37); MEAN CORPUSCULAR VOLUME 105 fL (79-100); MONO # 0.3 x10^3/uL (0.0-1.1); MONO % 4 % (0-9); NEUT # 4.5 x10^3uL (1.8-7.7); NEUT % 78 % (31-73); PLATELET COUNT 475 x10^3/uL (140-400); RED BLOOD COUNT 2.55 x10^6/uL (3.50-5.40); RED CELL DISTRIBUTION WIDTH 17.3 % (11.5-14.5); WHITE BLOOD COUNT 5.7 x10^3/uL (4.0-11.0)
[2018-12-19 20:57] LABS: BASE EXCESS ABG -19 mmol/L (-3-3); HCO3 ABG 8 mmol/L (21-28); PO2 ABG 91 mmHg (75-108); SAT O2 ABG 94 % (92-99)
[2018-12-19] MEDS: PHENYLEPHRINE INJ 20 MG in IV NORMAL SALINE 250ML 250 ML IV PRN ×2 (20:59→23:57)
[2018-12-19] MEDS: SODIUM BICARBONATE VIAL 150 MEQ in IV DEXTROSE 5% 1,000 ML IV SCH (20:59)
[2018-12-19] MEDS: MIDAZOLAM 100mg/100ml NS BAG 100 ML IV PRN (20:59)
[2018-12-19 21:00] VITALS: BP 120/89
[2018-12-19] MEDS ORDERED: PROPOFOL 10 MG/ML (100ML) VIAL. IV ONE (21:00)
[2018-12-19] MEDS ORDERED: SUCCINYLCHOLINE 200 MG/10 ML VIAL. ONE (21:00)
[2018-12-19] MEDS: VASOPRESSIN 40 UNIT in IV DEXTROSE 5% 100ML 100 ML IV PRN (21:00)
[2018-12-19 21:06] LABS: PCO2 ABG 20 mmHg (35-46)
[2018-12-19 21:07] LABS: FIO2 ABG 21
[2018-12-19 21:27] LABS: % BANDS 21 % (0-9); % LYMPHS 10 % (24-48); % METAS 7 % (0-0); % MONOS 5 % (0-10); % SEGS 57 % (35-66); NUCLEATED RBC 4
[2018-12-19 21:28] LABS: PLT ESTIMATE ADEQUATE (ADEQUATE)
[2018-12-19 21:29] LABS: ANISOCYTOSIS SLIGHT; MICROCYTOSIS SLIGHT; POLYCHROMASIA OCCASIONAL; TOXIC VACUOLATION SLIGHT
--- NOTE | 2018-12-19 21:34 | RAD ---
PORTABLE CHEST 1V, KUB History: ET TUBE PLACEMENT. Single view chest Comparison with same day at 2:13 PM. Endotracheal tube has been placed, with its tip about 15 mm above the bo, could be withdrawn a couple more centimeters. Right IJ line tip overlies the cavoatrial junction. There is a line overlying the left lung apex, probably something overlying the chest rather than a small left apical pneumothorax. No definite right pneumothorax. No consolidating infiltrate is identified. No large effusion. There appears to be some diaphragmatic gas. Single view abdomen There is pneumoperitoneum beneath the hemidiaphragms bilaterally. Endogastric tube is identified, just overlying the stomach. Its proximal side port is in the region of the gastroesophageal junction. Only the upper abdomen is included. There are surgical clips in the right upper quadrant. There is an IVC filter. IMPRESSION: 1. Evidence of free intraperitoneal gas. This is concerning for bowel perforation this was discussed with Melanie in the ICU, and a CT scan has been ordered. 2. Possible small left apical pneumothorax. Recommend short-term follow-up chest x-ray. FOR INTERNAL CODING PURPOSES Critical result: Findings discussed with Melanie in the ICU at 12/19/2018 9:29 PM. RESULT CODE: (C) Electronically signed by: Jagdeep Lugo MD (12/19/2018 9:32 PM) [facility]
--- NOTE | 2018-12-19 21:51 | PDOC1 ---
History and Physical Date of Admission Date of Admission DATE: 12/19/18 TIME: 21:51 Identification/Chief Complaint Chief Complaint confusion, weakness, tachycardia Source Source: Chart review, Patient History of Present Illness History of Present Illness recently discharged from [facility], then sudden change today of weakness, tachycadia, confusion, lethargy. I saw the patient in ER 3, computers were down, sepsis with HR 150, hypotensive, I consulted ID and Critical care, Discussed with Dr. Horn, who placed a central line, ABd tender, but patient mostly lethargic and not giving much history, no family in the ER at the time. Past Medical History Cardiovascular: HTN Pulmonary: Pulmonary embolus CENTRAL NERVOUS SYSTEM: Other GI: Peptic Ulcer disease Heme/Onc: Other Hepatobiliary: Cholelithiasis Psych: No pertinent hx Musculoskeletal: Other Rheumatologic: No pertinent hx Infectious disease: Other Renal/: No pertinent hx Past Surgical History Past Surgical History: Cholecystectomy, Tubal Ligation Family History Family History: Coronary Artery Disease Family History: Parent Social History Smoke: No ALCOHOL: none Drugs: None Current Medications Current Medications Current Medications Sodium Chloride 1,000 ml @ 1,000 mls/hr 1X ONCE IV ; Start 12/19/18 at 14:00; Stop 12/19/18 at 15:01; Status DC Lidocaine HCl (Lidocaine 1% 20ml Vial) 20 ml STK-MED ONCE .ROUTE ; Start at 14:11; Stop 12/19/18 at 14:12; Status DC Norepinephrine Bitartrate 250 ml @ 1.875 mls/ hr 1X ONCE IV ; Start 12/19/18 at 14:30; Stop 12/19/18 at 14:30; Status DC Sodium Chloride 1,000 ml @ 1,000 mls/hr 1X ONCE IV ; Start 12/19/18 at 14:30; Stop 12/19/18 at 15:29; Status DC Norepinephrine Bitartrate 250 ml @ 0 mls/hr 1X ONCE IV ; Start 12/19/18 at 14:30; Stop 12/19/18 at 14:31; Status DC Ondansetron HCl (Zofran) 4 mg STK-MED ONCE .ROUTE ; Start 12/19/18 at 14:27; Stop 12/19/18 at 14:28; Status DC Meropenem 1 gm/ Sodium Chloride 100 ml @ 200 mls/hr Q8HRS IV ; Start 12/19/18 at 15:00; Stop 12/19/18 at 21:33; Status DC Fentanyl Citrate (Fentanyl 2ml Vial) 100 mcg STK-MED ONCE .ROUTE ; Start 12/19/18 at 14:38; Stop 12/19/18 at 14:39; Status DC Vasopressin 40 unit/Dextrose 102 ml @ 6 mls/hr CONT PRN IV SEE I/O RECORD Last administered on 12/19/18at 21:00; Start 12/19/18 at 17:15 Diphenhydramine HCl (Benadryl) 50 mg STK-MED ONCE .ROUTE ; Start 12/19/18 at 15:00; Stop 12/19/18 at 17:18; Status DC Adenosine (Adenocard) 6 mg STK-MED ONCE IV ; Start 12/19/18 at 15:30; Stop 12/19/18 at 17:20; Status DC Morphine Sulfate (Morphine Sulfate) 2 mg STK-MED ONCE .ROUTE ; Start 12/19/18 at 17:23; Stop 12/19/18 at 17:24; Status DC Morphine Sulfate (Morphine Sulfate) 2 mg PRN Q1HR PRN IV PAIN; Start 12/19/18 at 18:15 Norepinephrine Bitartrate 250 ml @ 1.875 mls/ hr CONT PRN IV SEE I/O RECORD Last administered on 12/19/18at 19:25; Start 12/19/18 at 18:15 Morphine Sulfate (Morphine Sulfate) 4 mg PRN Q1HR PRN IV PAIN Last administered on 12/19/18at 21:21; Start 12/19/18 at 18:15 Hydrocortisone Sodium Succinate (Solu-CORTEF) 100 mg Q8HRS IV ; Start 12/19/18 at 22:00 Hydrocortisone Sodium Succinate (Solu-Cortef) 300 mg 1X ONCE IV ; Start 12/19/18 at 17:00; Stop 12/19/18 at 18:08; Status DC Vancomycin HCl 1 gm/Sodium Chloride 250 ml @ 250 mls/hr 1X ONCE IV ; Start 12/19/18 at 17:00; Stop 12/19/18 at 18:08; Status DC Phenylephrine HCl 20 mg/Sodium Chloride 252 ml @ 22.68 mls/ hr CONT PRN IV SEE I/O RECORD Last administered on 12/19/18at 20:59; Start 12/19/18 at 20:00 Lidocaine HCl (Xylocaine-Mpf 1% 5ml Vial) 5 ml STK-MED ONCE .ROUTE ; Start 12/19/18 at 19:58; Stop 12/19/18 at 19:59; Status DC Midazolam HCl 100 ml @ 0 mls/hr CONT PRN IV SEE PROTOCOL Last administered on 12/19/18at 20:59; Start 12/19/18 at 20:30 Sodium Bicarbonate 150 meq/Dextrose 1,150 ml @ 75 mls/hr [id number] IV Last administered on 12/19/18at 20:59; Start 12/19/18 at 21:00 Meropenem 500 mg/ Sodium Chloride 50 ml @ 100 mls/hr Q8HRS IV ; Start 12/19/18 at 22:00 Linezolid/Dextrose 300 ml @ 300 mls/hr Q12HR IV ; Start 12/20/18 at 09:00 Linezolid/Dextrose 300 ml @ 300 mls/hr 1X ONCE IV ; Start 12/19/18 at 22:00; Stop 12/19/18 at 22:59 Active Scripts Active Ativan (Lorazepam) 0.5 Mg Tablet 0.5 Mg PO PRN Q6HRS PRN 15 Days Polyethylene Glycol 3350 17 Gm Powd.pack 17 Gm PO PRN DAILY PRN 30 Days Colace (Docusate Sodium) 100 Mg Capsule 100 Mg PO PRN BID PRN 30 Days Culturelle (Lactobacillus Rhamnosus Gg) 1 Each Cap.sprink 1 Cap PO BID 7 Days Hydrocodone-Apap 5-325 (Hydrocodone Bit/Acetaminophen) 1 Tab Tablet 1 Tab PO PRN Q6HRS PRN 6 Days Tylenol (Acetaminophen) 325 Mg Tablet 650 Mg PO PRN Q4HRS PRN 30 Days Catapres (Clonidine Hcl) 0.1 Mg Tablet 0.1 Mg PO PRN Q6HRS PRN 30 Days SBP > 160 or DBP > 90 Proair Hfa (Albuterol Sulfate) 8.5 Gm Hfa.aer.ad 2.5 Mg NEB PRN Q4HRS PRN 30 Days Cozaar (Losartan Potassium) 50 Mg Tablet 100 Mg PO DAILY 30 Days Carafate (Sucralfate) 1 Gm Tablet 1 Gm PO QIDACHS [Pantoprazole] 40 MG Tablet. 40 Mg PO BIDAC Reported Carvedilol (Carvedilol) 3.125 Mg Tablet 3.125 Mg PO BIDWMEALS Xarelto (Rivaroxaban) 20 Mg Tablet 20 Mg PO DAILY Latuda (Lurasidone Hcl) 40 Mg Tablet 40 Mg PO DAILY Vitamin D3 (Cholecalciferol (Vitamin D3)) 50,000 Unit Capsule 50,000 Unit PO WEEKLY Folic Acid 1 Mg Tablet 1 Mg PO DAILY Magnesium Oxide 400 Mg Tablet 250 Mg PO DAILY Allergies Allergies: Coded Allergies: banana (Verified Allergy, Severe, SWELLING TO MOUTH AND TONGUE, 04/20/18) cephalexin (Verified Allergy, Severe, "SWELLING TO MOUTH", 12/19/18) Tolerates merrem shrimp (Verified Allergy, Severe, SWELLING TO MOUTH AND TONGUE, 04/20/18) fentanyl (Verified Allergy, Intermediate, 07/02/18) I S O L A T I O N *CONTACT* (Verified Allergy, Unknown, 11/10/18) ESBL ROS Review of System unable, pt lethargic, but had improved enought to leave SNU in the past 24 hours Physical Exam General: moderate distress, severe distress, Other (lethargic, not answering questions, awake) HEENT: Atraumatic, PERRLA, Other (dry) Lungs: Clear to auscultation Heart: RRR, no murmurs, other (tachy) Abdomen: Soft (tender, active sounds, ) Extremities: No cyanosis, Other (cool ext. ) Skin: No rashes, Other Neuro: Other Psych/Mental Status: Other Vitals Vitals Vital Signs Date Time Temp Pulse Resp B/P (MAP) Pulse Ox O2 Delivery O2 Flow Rate FiO2 12/19/18 20:42 100 Ventilator 12/19/18 19:25 26 Labs Labs Laboratory Tests Test 12/19/18 13:50 12/19/18 15:15 12/19/18 17:50 12/19/18 20:15 White Blood Count 7.5 x10^3/uL (4.0-11.0) 5.7 x10^3/uL (4.0-11.0) Red Blood Count 3.10 x10^6/uL (3.50-5.40) 2.55 x10^6/uL (3.50-5.40) Hemoglobin 10.0 g/dL (12.0-15.5) 8.3 g/dL (12.0-15.5) Hematocrit 31.5 % (36.0-47.0) 26.7 % (36.0-47.0) Mean Corpuscular Volume 102 fL (79-100) 105 fL (79-100) Mean Corpuscular Hemoglobin 32 pg (25-35) 32 pg (25-35) Mean Corpuscular Hemoglobin Concent 32 g/dL (31-37) 31 g/dL (31-37) Red Cell Distribution Width 17.6 % (11.5-14.5) 17.3 % (11.5-14.5) Platelet Count 454 x10^3/uL (140-400) 475 x10^3/uL (140-400) Neutrophils (%) (Auto) 63 % (31-73) 78 % (31-73) Lymphocytes (%) (Auto) 30 % (24-48) 15 % (24-48) Monocytes (%) (Auto) 7 % (0-9) 4 % (0-9) Eosinophils (%) (Auto) 0 % (0-3) 1 % (0-3) Basophils (%) (Auto) 1 % (0-3) 0 % (0-3) Neutrophils # (Auto) 4.8 x10^3uL (1.8-7.7) 4.5 x10^3uL (1.8-7.7) Lymphocytes # (Auto) 2.2 x10^3/uL (1.0-4.8) 0.9 x10^3/uL (1.0-4.8) Monocytes # (Auto) 0.5 x10^3/uL (0.0-1.1) 0.3 x10^3/uL (0.0-1.1) Eosinophils # (Auto) 0.0 x10^3/uL (0.0-0.7) 0.1 x10^3/uL (0.0-0.7) Basophils # (Auto) 0.0 x10^3/uL (0.0-0.2) 0.0 x10^3/uL (0.0-0.2) Prothrombin Time 53.3 SEC (11.7-14.0) Prothromb Time International Ratio 5.9 (0.8-1.1) Activated Partial Thromboplast Time 143 SEC (24-38) Sodium Level 137 mmol/L (136-145) 141 mmol/L (136-145) Potassium Level 5.2 mmol/L (3.5-5.1) 5.0 mmol/L (3.5-5.1) Chloride Level 107 mmol/L (98-107) 114 mmol/L (98-107) Carbon Dioxide Level 13 mmol/L (21-32) 9 mmol/L (21-32) Anion Gap 17 (6-14) 18 (6-14) Blood Urea Nitrogen 18 mg/dL (7-20) 16 mg/dL (7-20) Creatinine 1.9 mg/dL (0.6-1.0) 1.5 mg/dL (0.6-1.0) Estimated GFR (Cockcroft-Gault) 34.6 45.4 BUN/Creatinine Ratio 9 (6-20) Glucose Level 157 mg/dL (70-99) 159 mg/dL (70-99) Lactic Acid Level 5.9 mmol/L (0.4-2.0) 5.2 mmol/L (0.4-2.0) Calcium Level 8.4 mg/dL (8.5-10.1) 7.1 mg/dL (8.5-10.1) Magnesium Level 1.8 mg/dL (1.8-2.4) Total Bilirubin 3.8 mg/dL (0.2-1.0) 3.2 mg/dL (0.2-1.0) Aspartate Amino Transf (AST/SGOT) 77 U/L (15-37) 59 U/L (15-37) Alanine Aminotransferase (ALT/SGPT) 58 U/L (14-59) 45 U/L (14-59) Alkaline Phosphatase 98 U/L (46-116) 75 U/L (46-116) Creatine Kinase 201 U/L (26-192) 242 U/L (26-192) Creatine Kinase MB (Mass) 2.9 ng/mL (0.0-3.6) 3.2 ng/mL (0.0-3.6) Creatine Kinase MB Relative Index 1.4 % (0-4) 1.3 % (0-4) Troponin I Quantitative < 0.017 ng/mL (0.000-0.055) 0.047 ng/mL (0.000-0.055) Total Protein 5.4 g/dL (6.4-8.2) 4.1 g/dL (6.4-8.2) Albumin 1.7 g/dL (3.4-5.0) 1.3 g/dL (3.4-5.0) Albumin/Globulin Ratio 0.5 (1.0-1.7) Urine Collection Type Unknown Urine Color Red Urine Clarity Clear Urine pH 5.5 Urine Specific [place] 1.025 Urine Protein Negative mg/dL (NEG-TRACE) Urine Glucose (UA) Negative mg/dL (NEG) Urine Ketones (Stick) Trace mg/dL (NEG) Urine Blood Negative (NEG) Urine Nitrite Positive (NEG) Urine Bilirubin Large (NEG) Urine Urobilinogen Dipstick 4.0 mg/dL (0.2 mg/dL) Urine Leukocyte Esterase Small (NEG) Urine RBC 0 /HPF (0-2) Urine WBC 5-10 /HPF (0-4) Urine Squamous Epithelial Cells None /LPF Urine Bacteria 0 /HPF (0-FEW) Urine Hyaline Casts Many /HPF Urine Mucus Mod /LPF Direct Bilirubin 2.8 mg/dL (0.0-0.2) Ammonia 129 mcmol/L (11-34) Segmented Neutrophils % 57 % (35-66) Band Neutrophils % 21 % (0-9) Lymphocytes % 10 % (24-48) Monocytes % 5 % (0-10) Metamyelocytes % 7 % (0-0) Nucleated Red Blood Cells 4 Toxic Vacuolation Slight Platelet Estimate Adequate (ADEQUATE) Polychromasia Occasional Anisocytosis Slight Microcytosis Slight Test 12/19/18 20:18 O2 Saturation 94 % (92-99) Arterial Blood pH 7.19 (7.35-7.45) Arterial Blood pCO2 at Patient Temp 20 mmHg (35-46) Arterial Blood pO2 at Patient Temp 91 mmHg (75-108) Arterial Blood HCO3 8 mmol/L (21-28) Arterial Blood Base Excess -19 mmol/L (-3-3) FiO2 21 Laboratory Tests Test 12/19/18 13:50 12/19/18 15:15 12/19/18 17:50 12/19/18 20:15 White Blood Count 7.5 x10^3/uL (4.0-11.0) 5.7 x10^3/uL (4.0-11.0) Red Blood Count 3.10 x10^6/uL (3.50-5.40) 2.55 x10^6/uL (3.50-5.40) Hemoglobin 10.0 g/dL (12.0-15.5) 8.3 g/dL (12.0-15.5) Hematocrit 31.5 % (36.0-47.0) 26.7 % (36.0-47.0) Mean Corpuscular Volume 102 fL (79-100) 105 fL (79-100) Mean Corpuscular Hemoglobin 32 pg (25-35) 32 pg (25-35) Mean Corpuscular Hemoglobin Concent 32 g/dL (31-37) 31 g/dL (31-37) Red Cell Distribution Width 17.6 % (11.5-14.5) 17.3 % (11.5-14.5) Platelet Count 454 x10^3/uL (140-400) 475 x10^3/uL (140-400) Neutrophils (%) (Auto) 63 % (31-73) 78 % (31-73) Lymphocytes (%) (Auto) 30 % (24-48) 15 % (24-48) Monocytes (%) (Auto) 7 % (0-9) 4 % (0-9) Eosinophils (%) (Auto) 0 % (0-3) 1 % (0-3) Basophils (%) (Auto) 1 % (0-3) 0 % (0-3) Neutrophils # (Auto) 4.8 x10^3uL (1.8-7.7) 4.5 x10^3uL (1.8-7.7) Lymphocytes # (Auto) 2.2 x10^3/uL (1.0-4.8) 0.9 x10^3/uL (1.0-4.8) Monocytes # (Auto) 0.5 x10^3/uL (0.0-1.1) 0.3 x10^3/uL (0.0-1.1) Eosinophils # (Auto) 0.0 x10^3/uL (0.0-0.7) 0.1 x10^3/uL (0.0-0.7) Basophils # (Auto) 0.0 x10^3/uL (0.0-0.2) 0.0 x10^3/uL (0.0-0.2) Prothrombin Time 53.3 SEC (11.7-14.0) Prothromb Time International Ratio 5.9 (0.8-1.1) Activated Partial Thromboplast Time 143 SEC (24-38) Sodium Level 137 mmol/L (136-145) 141 mmol/L (136-145) Potassium Level 5.2 mmol/L (3.5-5.1) 5.0 mmol/L (3.5-5.1) Chloride Level 107 mmol/L (98-107) 114 mmol/L (98-107) Carbon Dioxide Level 13 mmol/L (21-32) 9 mmol/L (21-32) Anion Gap 17 (6-14) 18 (6-14) Blood Urea Nitrogen 18 mg/dL (7-20) 16 mg/dL (7-20) Creatinine 1.9 mg/dL (0.6-1.0) 1.5 mg/dL (0.6-1.0) Estimated GFR (Cockcroft-Gault) 34.6 45.4 BUN/Creatinine Ratio 9 (6-20) Glucose Level 157 mg/dL (70-99) 159 mg/dL (70-99) Lactic Acid Level 5.9 mmol/L (0.4-2.0) 5.2 mmol/L (0.4-2.0) Calcium Level 8.4 mg/dL (8.5-10.1) 7.1 mg/dL (8.5-10.1) Magnesium Level 1.8 mg/dL (1.8-2.4) Total Bilirubin 3.8 mg/dL (0.2-1.0) 3.2 mg/dL (0.2-1.0) Aspartate Amino Transf (AST/SGOT) 77 U/L (15-37) 59 U/L (15-37) Alanine Aminotransferase (ALT/SGPT) 58 U/L (14-59) 45 U/L (14-59) Alkaline Phosphatase 98 U/L (46-116) 75 U/L (46-116) Creatine Kinase 201 U/L (26-192) 242 U/L (26-192) Creatine Kinase MB (Mass) 2.9 ng/mL (0.0-3.6) 3.2 ng/mL (0.0-3.6) Creatine Kinase MB Relative Index 1.4 % (0-4) 1.3 % (0-4) Troponin I Quantitative < 0.017 ng/mL (0.000-0.055) 0.047 ng/mL (0.000-0.055) Total Protein 5.4 g/dL (6.4-8.2) 4.1 g/dL (6.4-8.2) Albumin 1.7 g/dL (3.4-5.0) 1.3 g/dL (3.4-5.0) Albumin/Globulin Ratio 0.5 (1.0-1.7) Urine Collection Type Unknown Urine Color Red Urine Clarity Clear Urine pH 5.5 Urine Specific [place] 1.025 Urine Protein Negative mg/dL (NEG-TRACE) Urine Glucose (UA) Negative mg/dL (NEG) Urine Ketones (Stick) Trace mg/dL (NEG) Urine Blood Negative (NEG) Urine Nitrite Positive (NEG) Urine Bilirubin Large (NEG) Urine Urobilinogen Dipstick 4.0 mg/dL (0.2 mg/dL) Urine Leukocyte Esterase Small (NEG) Urine RBC 0 /HPF (0-2) Urine WBC 5-10 /HPF (0-4) Urine Squamous Epithelial Cells None /LPF Urine Bacteria 0 /HPF (0-FEW) Urine Hyaline Casts Many /HPF Urine Mucus Mod /LPF Direct Bilirubin 2.8 mg/dL (0.0-0.2) Ammonia 129 mcmol/L (11-34) Segmented Neutrophils % 57 % (35-66) Band Neutrophils % 21 % (0-9) Lymphocytes % 10 % (24-48) Monocytes % 5 % (0-10) Metamyelocytes % 7 % (0-0) Nucleated Red Blood Cells 4 Toxic Vacuolation Slight Platelet Estimate Adequate (ADEQUATE) Polychromasia Occasional Anisocytosis Slight Microcytosis Slight Test 12/19/18 20:18 O2 Saturation 94 % (92-99) Arterial Blood pH 7.19 (7.35-7.45) Arterial Blood pCO2 at Patient Temp 20 mmHg (35-46) Arterial Blood pO2 at Patient Temp 91 mmHg (75-108) Arterial Blood HCO3 8 mmol/L (21-28) Arterial Blood Base Excess -19 mmol/L (-3-3) FiO2 21 VTE Prophylaxis Ordered VTE Prophylaxis Devices: Yes VTE Pharmacological Prophylaxi: Yes Assessment/Plan Assessment/Plan severe sepsis septic shock coagulopathy, hx of PE, INR supratherapeutic admit to ICU 2 visits, time 35 min seen in ER 3 consult ID and cv, and ELENO Garcia MD Dec 19, 2018 21:51
[2018-12-19] MEDS: MEROPENEM 500 MG in IV NORMAL SALINE 50ML 50 ML IV SCH (21:59)
[2018-12-19 22:00] VITALS: BP 98/84
--- NOTE | 2018-12-19 22:30 | RAD ---
KUB History: NEW OG TUBE. PLACEMENT VERIFICATION. Upper abdomen included. The position of the orogastric tube may be minimally advanced, but is overall similar. Free subdiaphragmatic air is again identified concerning for bowel perforation. Electronically signed by: Jagdeep Lugo MD (12/19/2018 10:27 PM) [facility]
[2018-12-19] MEDS: HYDROCORTISONE SOD SUCC/PF 100 MG/2 ML VIAL. IV SCH (22:42)
[2018-12-19 23:00] VITALS: BP 92/78
[2018-12-19 23:33] LABS: BASE EXCESS ABG -27 mmol/L (-3-3); HCO3 ABG 4 mmol/L (21-28); PO2 ABG 149 mmHg (75-108); SAT O2 ABG 97 % (92-99)
[2018-12-19] MEDS ORDERED: CONTRAST GIVEN. MC PRN (23:45)
[2018-12-19 23:48] LABS: FIO2 ABG 30; PCO2 ABG 20 mmHg (35-46)
[2018-12-20] VITALS (60 sets, daily range): BP systolic 30–132; BP diastolic 26–106
[2018-12-20] MEDS ORDERED: IOHEXOL 240 MG/ML 50ML VIAL. PO ONE
[2018-12-20 00:39] LABS: BASE EXCESS ABG -22 mmol/L (-3-3); HCO3 ABG 5 mmol/L (21-28); PO2 ABG 149 mmHg (75-108); SAT O2 ABG 98 % (92-99)
[2018-12-20 00:50] LABS: FIO2 ABG 30; PCO2 ABG 18 mmHg (35-46)
--- NOTE | 2018-12-20 01:02 | RAD ---
Indication: Low O2 sats. Evaluation for free air TECHNIQUE: AP abdomen and pelvis x-rays COMPARISON: 12/19/2018. FINDINGS: NG tube is seen with its tip in the body of the stomach. Lucency seen projecting over the right upper quadrant suggesting subdiaphragmatic free air is also seen on previous exam. Infrarenal IVC filter. Visualized bones within normal limits. IMPRESSION: Redemonstration of pneumoperitoneum. Electronically signed by: Domo Tovar DO (12/20/2018 12:59 AM) [facility]
--- NOTE | 2018-12-20 01:14 | PDOC2 ---
CONSULT Date of Consult Date of Consult DATE: 12/20/18 TIME: 00:57 Reason for Consult Reason for Consult: free air Referring Physician Referring Physician: SHARIF Identification/Chief Complaint Chief Complaint abdominal pain Source Source: Chart review History of Present Illness Reason for Visit: Gemma is a 43 yo female discharged from [facility] earlier today and driven by private vehicle to ED. Admitted to ICU with dx of sepsis. Plain films show free air. We are asked to see for same. She is s/p l/s Sabi-en-Y gastric bypass and hx of marginal ulcer which had resolved per recent EGD. Past Medical History Cardiovascular: HTN Pulmonary: Pulmonary embolus CENTRAL NERVOUS SYSTEM: Other GI: Peptic Ulcer disease Heme/Onc: Other Hepatobiliary: Cholelithiasis Psych: No pertinent hx Musculoskeletal: Other Rheumatologic: No pertinent hx Infectious disease: Other Renal/: No pertinent hx Past Surgical History Past Surgical History: Cholecystectomy, Tubal Ligation, Other (gastric bypass) Family History Family History: Coronary Artery Disease Social History Social History: Parent ALCOHOL: none Drugs: None Lives: with Family Current Medications Current Medications Current Medications Sodium Chloride 1,000 ml @ 1,000 mls/hr 1X ONCE IV ; Start 12/19/18 at 14:00; Stop 12/19/18 at 15:01; Status DC Lidocaine HCl (Lidocaine 1% 20ml Vial) 20 ml STK-MED ONCE .ROUTE ; Start 12/19/18 at 14:11; Stop 12/19/18 at 14:12; Status DC Norepinephrine Bitartrate 250 ml @ 1.875 mls/ hr 1X ONCE IV ; Start 12/19/18 at 14:30; Stop 12/19/18 at 14:30; Status DC Sodium Chloride 1,000 ml @ 1,000 mls/hr 1X ONCE IV ; Start 12/19/18 at 14:30; Stop 12/19/18 at 15:29; Status DC Norepinephrine Bitartrate 250 ml @ 0 mls/hr 1X ONCE IV ; Start 12/19/18 at 14:30; Stop 12/19/18 at 14:31; Status DC Ondansetron HCl (Zofran) 4 mg STK-MED ONCE .ROUTE ; Start 12/19/18 at 14:27; Stop 12/19/18 at 14:28; Status DC Meropenem 1 gm/ Sodium Chloride 100 ml @ 200 mls/hr Q8HRS IV ; Start 12/19/18 at 15:00; Stop 12/19/18 at 21:33; Status DC Fentanyl Citrate (Fentanyl 2ml Vial) 100 mcg STK-MED ONCE .ROUTE ; Start 12/19/18 at 14:38; Stop 12/19/18 at 14:39; Status DC Vasopressin 40 unit/Dextrose 102 ml @ 6 mls/hr CONT PRN IV SEE I/O RECORD Last administered on 12/19/18at 21:00; Start 12/19/18 at 17:15 Diphenhydramine HCl (Benadryl) 50 mg STK-MED ONCE .ROUTE ; Start 12/19/18 at 15:00; Stop 12/19/18 at 17:18; Status DC Adenosine (Adenocard) 6 mg STK-MED ONCE IV ; Start 12/19/18 at 15:30; Stop 12/19/18 at 17:20; Status DC Morphine Sulfate (Morphine Sulfate) 2 mg STK-MED ONCE .ROUTE ; Start 12/19/18 at 17:23; Stop 12/19/18 at 17:24; Status DC Morphine Sulfate (Morphine Sulfate) 2 mg PRN Q1HR PRN IV PAIN; Start 12/19/18 at 18:15 Norepinephrine Bitartrate 250 ml @ 1.875 mls/ hr CONT PRN IV SEE I/O RECORD Last administered on 12/19/18at 23:57; Start 12/19/18 at 18:15 Morphine Sulfate (Morphine Sulfate) 4 mg PRN Q1HR PRN IV PAIN Last administered on 12/19/18at 21:21; Start 12/19/18 at 18:15 Hydrocortisone Sodium Succinate (Solu-CORTEF) 100 mg Q8HRS IV Last administered on 12/19/18at 22:42; Start 12/19/18 at 22:00 Hydrocortisone Sodium Succinate (Solu-Cortef) 300 mg 1X ONCE IV ; Start 12/19/18 at 17:00; Stop 12/19/18 at 18:08; Status DC Vancomycin HCl 1 gm/Sodium Chloride 250 ml @ 250 mls/hr 1X ONCE IV ; Start 12/19/18 at 17:00; Stop 12/19/18 at 18:08; Status DC Phenylephrine HCl 20 mg/Sodium Chloride 252 ml @ 22.68 mls/ hr CONT PRN IV SEE I/O RECORD Last administered on 12/19/18at 23:57; Start 12/19/18 at 20:00 Lidocaine HCl (Xylocaine-Mpf 1% 5ml Vial) 5 ml STK-MED ONCE .ROUTE ; Start 12/19/18 at 19:58; Stop 12/19/18 at 19:59; Status DC Midazolam HCl 100 ml @ 0 mls/hr CONT PRN IV SEE PROTOCOL Last administered on 12/19/18at 20:59; Start 12/19/18 at 20:30 Sodium Bicarbonate 150 meq/Dextrose 1,150 ml @ 75 mls/hr [id number] IV Last administered on 12/19/18at 20:59; Start 12/19/18 at 21:00 Meropenem 500 mg/ Sodium Chloride 50 ml @ 100 mls/hr Q8HRS IV Last administered on 12/19/18at 21:59; Start 12/19/18 at 22:00 Linezolid/Dextrose 300 ml @ 300 mls/hr Q12HR IV ; Start 12/20/18 at 09:00 Linezolid/Dextrose 300 ml @ 300 mls/hr 1X ONCE IV Last administered on 12/19/18at 22:42; Start 12/19/18 at 22:00; Stop 12/19/18 at 22:59; Status DC Iohexol (Omnipaque 240 Mg/ml) 30 ml 1X ONCE PO ; Start 12/20/18 at 00:00; Stop 12/20/18 at 00:01; Status DC Info (CONTRAST GIVEN -- Rx MONITORING) 1 each PRN DAILY PRN MC SEE COMMENTS; Start 12/19/18 at 23:45; Stop 12/21/18 at 23:44 Sodium Bicarbonate (Sodium Bicarb Adult 8.4% Syr) 100 meq 1X ONCE IV Last administered on 12/19/18at 23:52; Start 12/20/18 at 00:00; Stop 12/20/18 at 00:01; Status DC Active Scripts Active Ativan (Lorazepam) 0.5 Mg Tablet 0.5 Mg PO PRN Q6HRS PRN 15 Days Polyethylene Glycol 3350 17 Gm Powd.pack 17 Gm PO PRN DAILY PRN 30 Days Colace (Docusate Sodium) 100 Mg Capsule 100 Mg PO PRN BID PRN 30 Days Culturelle (Lactobacillus Rhamnosus Gg) 1 Each Cap.sprink 1 Cap PO BID 7 Days Hydrocodone-Apap 5-325 (Hydrocodone Bit/Acetaminophen) 1 Tab Tablet 1 Tab PO PRN Q6HRS PRN 6 Days Tylenol (Acetaminophen) 325 Mg Tablet 650 Mg PO PRN Q4HRS PRN 30 Days Catapres (Clonidine Hcl) 0.1 Mg Tablet 0.1 Mg PO PRN Q6HRS PRN 30 Days SBP > 160 or DBP > 90 Proair Hfa (Albuterol Sulfate) 8.5 Gm Hfa.aer.ad 2.5 Mg NEB PRN Q4HRS PRN 30 Days Cozaar (Losartan Potassium) 50 Mg Tablet 100 Mg PO DAILY 30 Days Carafate (Sucralfate) 1 Gm Tablet 1 Gm PO QIDACHS [Pantoprazole] 40 MG Tablet.dr 40 Mg PO BIDAC Reported Carvedilol (Carvedilol) 3.125 Mg Tablet 3.125 Mg PO BIDWMEALS Xarelto (Rivaroxaban) 20 Mg Tablet 20 Mg PO DAILY Latuda (Lurasidone Hcl) 40 Mg Tablet 40 Mg PO DAILY Vitamin D3 (Cholecalciferol (Vitamin D3)) 50,000 Unit Capsule 50,000 Unit PO WEEKLY Folic Acid 1 Mg Tablet 1 Mg PO DAILY Magnesium Oxide 400 Mg Tablet 250 Mg PO DAILY Allergies Allergies: Coded Allergies: banana (Verified Allergy, Severe, SWELLING TO MOUTH AND TONGUE, 04/20/18) cephalexin (Verified Allergy, Severe, "SWELLING TO MOUTH", 12/19/18) Tolerates merrem shrimp (Verified Allergy, Severe, SWELLING TO MOUTH AND TONGUE, 04/20/18) fentanyl (Verified Allergy, Intermediate, 07/02/18) I S O L A T I O N *CONTACT* (Verified Allergy, Unknown, 11/10/18) ESBL ROS Review of System unobtainable 2/2 intubation, sedation Physical Exam General: Other (intubated, sedated) Lungs: Other (ventilated) Heart: Other (tachycardia) Abdomen: Other (protuberant, soft) Extremities: Other (cyanotic) Vitals VITALS Vital Signs Date Time Temp Pulse Resp B/P (MAP) Pulse Ox O2 Delivery O2 Flow Rate FiO2 12/20/18 00:47 Ventilator 12/20/18 00:00 98.7 162 26 115/94 (101) 98.7 12/19/18 23:00 100 on maximum pressor support Labs Labs Laboratory Tests Test 12/19/18 13:50 12/19/18 15:15 12/19/18 17:50 12/19/18 20:15 White Blood Count 7.5 x10^3/uL (4.0-11.0) 5.7 x10^3/uL (4.0-11.0) Red Blood Count 3.10 x10^6/uL (3.50-5.40) 2.55 x10^6/uL (3.50-5.40) Hemoglobin 10.0 g/dL (12.0-15.5) 8.3 g/dL (12.0-15.5) Hematocrit 31.5 % (36.0-47.0) 26.7 % (36.0-47.0) Mean Corpuscular Volume 102 fL (79-100) 105 fL (79-100) Mean Corpuscular Hemoglobin 32 pg (25-35) 32 pg (25-35) Mean Corpuscular Hemoglobin Concent 32 g/dL (31-37) 31 g/dL (31-37) Red Cell Distribution Width 17.6 % (11.5-14.5) 17.3 % (11.5-14.5) Platelet Count 454 x10^3/uL (140-400) 475 x10^3/uL (140-400) Neutrophils (%) (Auto) 63 % (31-73) 78 % (31-73) Lymphocytes (%) (Auto) 30 % (24-48) 15 % (24-48) Monocytes (%) (Auto) 7 % (0-9) 4 % (0-9) Eosinophils (%) (Auto) 0 % (0-3) 1 % (0-3) Basophils (%) (Auto) 1 % (0-3) 0 % (0-3) Neutrophils # (Auto) 4.8 x10^3uL (1.8-7.7) 4.5 x10^3uL (1.8-7.7) Lymphocytes # (Auto) 2.2 x10^3/uL (1.0-4.8) 0.9 x10^3/uL (1.0-4.8) Monocytes # (Auto) 0.5 x10^3/uL (0.0-1.1) 0.3 x10^3/uL (0.0-1.1) Eosinophils # (Auto) 0.0 x10^3/uL (0.0-0.7) 0.1 x10^3/uL (0.0-0.7) Basophils # (Auto) 0.0 x10^3/uL (0.0-0.2) 0.0 x10^3/uL (0.0-0.2) Prothrombin Time 53.3 SEC (11.7-14.0) Prothromb Time International Ratio 5.9 (0.8-1.1) Activated Partial Thromboplast Time 143 SEC (24-38) Sodium Level 137 mmol/L (136-145) 141 mmol/L (136-145) Potassium Level 5.2 mmol/L (3.5-5.1) 5.0 mmol/L (3.5-5.1) Chloride Level 107 mmol/L (98-107) 114 mmol/L (98-107) Carbon Dioxide Level 13 mmol/L (21-32) 9 mmol/L (21-32) Anion Gap 17 (6-14) 18 (6-14) Blood Urea Nitrogen 18 mg/dL (7-20) 16 mg/dL (7-20) Creatinine 1.9 mg/dL (0.6-1.0) 1.5 mg/dL (0.6-1.0) Estimated GFR (Cockcroft-Gault) 34.6 45.4 BUN/Creatinine Ratio 9 (6-20) Glucose Level 157 mg/dL (70-99) 159 mg/dL (70-99) Lactic Acid Level 5.9 mmol/L (0.4-2.0) 5.2 mmol/L (0.4-2.0) Calcium Level 8.4 mg/dL (8.5-10.1) 7.1 mg/dL (8.5-10.1) Magnesium Level 1.8 mg/dL (1.8-2.4) Total Bilirubin 3.8 mg/dL (0.2-1.0) 3.2 mg/dL (0.2-1.0) Aspartate Amino Transf (AST/SGOT) 77 U/L (15-37) 59 U/L (15-37) Alanine Aminotransferase (ALT/SGPT) 58 U/L (14-59) 45 U/L (14-59) Alkaline Phosphatase 98 U/L (46-116) 75 U/L (46-116) Creatine Kinase 201 U/L (26-192) 242 U/L (26-192) Creatine Kinase MB (Mass) 2.9 ng/mL (0.0-3.6) 3.2 ng/mL (0.0-3.6) Creatine Kinase MB Relative Index 1.4 % (0-4) 1.3 % (0-4) Troponin I Quantitative < 0.017 ng/mL (0.000-0.055) 0.047 ng/mL (0.000-0.055) Total Protein 5.4 g/dL (6.4-8.2) 4.1 g/dL (6.4-8.2) Albumin 1.7 g/dL (3.4-5.0) 1.3 g/dL (3.4-5.0) Albumin/Globulin Ratio 0.5 (1.0-1.7) Urine Collection Type Unknown Urine Color Red Urine Clarity Clear Urine pH 5.5 Urine Specific [place] 1.025 Urine Protein Negative mg/dL (NEG-TRACE) Urine Glucose (UA) Negative mg/dL (NEG) Urine Ketones (Stick) Trace mg/dL (NEG) Urine Blood Negative (NEG) Urine Nitrite Positive (NEG) Urine Bilirubin Large (NEG) Urine Urobilinogen Dipstick 4.0 mg/dL (0.2 mg/dL) Urine Leukocyte Esterase Small (NEG) Urine RBC 0 /HPF (0-2) Urine WBC 5-10 /HPF (0-4) Urine Squamous Epithelial Cells None /LPF Urine Bacteria 0 /HPF (0-FEW) Urine Hyaline Casts Many /HPF Urine Mucus Mod /LPF Direct Bilirubin 2.8 mg/dL (0.0-0.2) Ammonia 129 mcmol/L (11-34) Segmented Neutrophils % 57 % (35-66) Band Neutrophils % 21 % (0-9) Lymphocytes % 10 % (24-48) Monocytes % 5 % (0-10) Metamyelocytes % 7 % (0-0) Nucleated Red Blood Cells 4 Toxic Vacuolation Slight Platelet Estimate Adequate (ADEQUATE) Polychromasia Occasional Anisocytosis Slight Microcytosis Slight Test 12/19/18 20:18 12/19/18 23:28 12/20/18 00:35 O2 Saturation 94 % (92-99) 97 % (92-99) 98 % (92-99) Arterial Blood pH 7.19 (7.35-7.45) 6.92 (7.35-7.45) 7.10 (7.35-7.45) Arterial Blood pCO2 at Patient Temp 20 mmHg (35-46) 20 mmHg (35-46) 18 mmHg (35-46) Arterial Blood pO2 at Patient Temp 91 mmHg (75-108) 149 mmHg (75-108) 149 mmHg (75-108) Arterial Blood HCO3 8 mmol/L (21-28) 4 mmol/L (21-28) 5 mmol/L (21-28) Arterial Blood Base Excess -19 mmol/L (-3-3) -27 mmol/L (-3-3) -22 mmol/L (-3-3) FiO2 21 30 30 Laboratory Tests Test 12/19/18 13:50 12/19/18 15:15 12/19/18 17:50 12/19/18 20:15 White Blood Count 7.5 x10^3/uL (4.0-11.0) 5.7 x10^3/uL (4.0-11.0) Red Blood Count 3.10 x10^6/uL (3.50-5.40) 2.55 x10^6/uL (3.50-5.40) Hemoglobin 10.0 g/dL (12.0-15.5) 8.3 g/dL (12.0-15.5) Hematocrit 31.5 % (36.0-47.0) 26.7 % (36.0-47.0) Mean Corpuscular Volume 102 fL (79-100) 105 fL (79-100) Mean Corpuscular Hemoglobin 32 pg (25-35) 32 pg (25-35) Mean Corpuscular Hemoglobin Concent 32 g/dL (31-37) 31 g/dL (31-37) Red Cell Distribution Width 17.6 % (11.5-14.5) 17.3 % (11.5-14.5) Platelet Count 454 x10^3/uL (140-400) 475 x10^3/uL (140-400) Neutrophils (%) (Auto) 63 % (31-73) 78 % (31-73) Lymphocytes (%) (Auto) 30 % (24-48) 15 % (24-48) Monocytes (%) (Auto) 7 % (0-9) 4 % (0-9) Eosinophils (%) (Auto) 0 % (0-3) 1 % (0-3) Basophils (%) (Auto) 1 % (0-3) 0 % (0-3) Neutrophils # (Auto) 4.8 x10^3uL (1.8-7.7) 4.5 x10^3uL (1.8-7.7) Lymphocytes # (Auto) 2.2 x10^3/uL (1.0-4.8) 0.9 x10^3/uL (1.0-4.8) Monocytes # (Auto) 0.5 x10^3/uL (0.0-1.1) 0.3 x10^3/uL (0.0-1.1) Eosinophils # (Auto) 0.0 x10^3/uL (0.0-0.7) 0.1 x10^3/uL (0.0-0.7) Basophils # (Auto) 0.0 x10^3/uL (0.0-0.2) 0.0 x10^3/uL (0.0-0.2) Prothrombin Time 53.3 SEC (11.7-14.0) Prothromb Time International Ratio 5.9 (0.8-1.1) Activated Partial Thromboplast Time 143 SEC (24-38) Sodium Level 137 mmol/L (136-145) 141 mmol/L (136-145) Potassium Level 5.2 mmol/L (3.5-5.1) 5.0 mmol/L (3.5-5.1) Chloride Level 107 mmol/L (98-107) 114 mmol/L (98-107) Carbon Dioxide Level 13 mmol/L (21-32) 9 mmol/L (21-32) Anion Gap 17 (6-14) 18 (6-14) Blood Urea Nitrogen 18 mg/dL (7-20) 16 mg/dL (7-20) Creatinine 1.9 mg/dL (0.6-1.0) 1.5 mg/dL (0.6-1.0) Estimated GFR (Cockcroft-Gault) 34.6 45.4 BUN/Creatinine Ratio 9 (6-20) Glucose Level 157 mg/dL (70-99) 159 mg/dL (70-99) Lactic Acid Level 5.9 mmol/L (0.4-2.0) 5.2 mmol/L (0.4-2.0) Calcium Level 8.4 mg/dL (8.5-10.1) 7.1 mg/dL (8.5-10.1) Magnesium Level 1.8 mg/dL (1.8-2.4) Total Bilirubin 3.8 mg/dL (0.2-1.0) 3.2 mg/dL (0.2-1.0) Aspartate Amino Transf (AST/SGOT) 77 U/L (15-37) 59 U/L (15-37) Alanine Aminotransferase (ALT/SGPT) 58 U/L (14-59) 45 U/L (14-59) Alkaline Phosphatase 98 U/L (46-116) 75 U/L (46-116) Creatine Kinase 201 U/L (26-192) 242 U/L (26-192) Creatine Kinase MB (Mass) 2.9 ng/mL (0.0-3.6) 3.2 ng/mL (0.0-3.6) Creatine Kinase MB Relative Index 1.4 % (0-4) 1.3 % (0-4) Troponin I Quantitative < 0.017 ng/mL (0.000-0.055) 0.047 ng/mL (0.000-0.055) Total Protein 5.4 g/dL (6.4-8.2) 4.1 g/dL (6.4-8.2) Albumin 1.7 g/dL (3.4-5.0) 1.3 g/dL (3.4-5.0) Albumin/Globulin Ratio 0.5 (1.0-1.7) Urine Collection Type Unknown Urine Color Red Urine Clarity Clear Urine pH 5.5 Urine Specific [place] 1.025 Urine Protein Negative mg/dL (NEG-TRACE) Urine Glucose (UA) Negative mg/dL (NEG) Urine Ketones (Stick) Trace mg/dL (NEG) Urine Blood Negative (NEG) Urine Nitrite Positive (NEG) Urine Bilirubin Large (NEG) Urine Urobilinogen Dipstick 4.0 mg/dL (0.2 mg/dL) Urine Leukocyte Esterase Small (NEG) Urine RBC 0 /HPF (0-2) Urine WBC 5-10 /HPF (0-4) Urine Squamous Epithelial Cells None /LPF Urine Bacteria 0 /HPF (0-FEW) Urine Hyaline Casts Many /HPF Urine Mucus Mod /LPF Direct Bilirubin 2.8 mg/dL (0.0-0.2) Ammonia 129 mcmol/L (11-34) Segmented Neutrophils % 57 % (35-66) Band Neutrophils % 21 % (0-9) Lymphocytes % 10 % (24-48) Monocytes % 5 % (0-10) Metamyelocytes % 7 % (0-0) Nucleated Red Blood Cells 4 Toxic Vacuolation Slight Platelet Estimate Adequate (ADEQUATE) Polychromasia Occasional Anisocytosis Slight Microcytosis Slight Test 12/19/18 20:18 12/19/18 23:28 12/20/18 00:35 O2 Saturation 94 % (92-99) 97 % (92-99) 98 % (92-99) Arterial Blood pH 7.19 (7.35-7.45) 6.92 (7.35-7.45) 7.10 (7.35-7.45) Arterial Blood pCO2 at Patient Temp 20 mmHg (35-46) 20 mmHg (35-46) 18 mmHg (35-46) Arterial Blood pO2 at Patient Temp 91 mmHg (75-108) 149 mmHg (75-108) 149 mmHg (75-108) Arterial Blood HCO3 8 mmol/L (21-28) 4 mmol/L (21-28) 5 mmol/L (21-28) Arterial Blood Base Excess -19 mmol/L (-3-3) -27 mmol/L (-3-3) -22 mmol/L (-3-3) FiO2 21 30 30 INR noted (pt not on coumadin) Images Images plain films done since admission are reviewed Assessment/Plan Assessment/Plan sepsis pneumoperitoneum with hx of marginal ulcer pt not a surgical candidate at present with hemodynamic status and coagulopathy receiving maximal medical treatment prognosis grim will follow with you d/w KOKO Chi MD December 20, 2018 01:14
[2018-12-20] MEDS ORDERED: DIGOXIN IV 500 MCG/2 ML AMPUL. IV ONE (01:30)
[2018-12-20] MEDS: PHENYLEPHRINE INJ 80 MG in IV NORMAL SALINE 250ML 250 ML IV PRN ×5 (01:39→20:33)
[2018-12-20] MEDS ORDERED: NORMAL SALINE IV PRN (04:45)
[2018-12-20] MEDS ORDERED: NOREPINEPHRINE IV PRN (04:45)
--- NOTE | 2018-12-20 04:52 | NUR ---
Summary of shift: This RN took over from day shift RN at 1900. [employer] had been down, see paper charting from day shift RN. Unable to read BP on cuff, used doppler to determine SBP only. Notified Dr. Gonzalez who ordered repeat labs, phenylephrine, and call [employer] to attempt to start an arterial line, and hold off on CT until more stable. DUSTIN Meehan at bedside to place arterial line, which was placed at 2014. ABG and labs drawn and was critical at 2018. Paged Dr. Gonzalez, who ordered a bicarb gtt, intubate patient, start versed for sedation, and try to get the CT as soon as possible. Zaheer, , at bedside, educated on need to intubate, ok with plan of care. Critical CO2 received on BMP, Dr. Gonzalez already aware. Patient intubated by DUSTIN Meehan at 2041. NG tube placed in R nare, KUB and CXR verified ET tube and NG tube. Radiologist called with critical KUB at 2129, said there was free air in the abdomen. Dr. Gonzalez already aware of potential free air, CT already ordered to verify. KUB also mentioned the NG needed to be advanced, unable to advance so was removed. OG tube placed and verified by KUB. Dr. Alyssa Barraza paged to notify that repeat antibiotics were not ordered, that they were all one time ED orders, received orders to start Merrem q8 and Zyvox q12. Oral contrast given at [address] Repeat ABG drawn at 2330, critical results called to Dr. Gonzalez who ordered 2 amps bicarb and changed settings on the ventilator. Dr. Gonzalez also notified of free air in abdomen on KUB, said hold off on CT due to instability and consult Dr. Joe. Dr. Joe notified of consult at 2345, said he would come assess the patient. At bedside, Dr. Joe ordered a repeat KUB to see if the oral contrast could show any bowel perforation, only thing seen was free air, decided patient was not a candidate for surgery at this time. Repeat ABG drawn at 0037, critical results called to Dr. Gonzalez, no new orders received, said there wasn't much more that can be done at this time. When phenylephrine was at max dose at 0100, Dr. Pasnoori was paged, gave the order to try 0.5 mg Digoxin, and if that didn't work there was nothing else that could be done. , Zaheer, was called to the bedside, discussed situation. CT on hold at this time.
[2018-12-20] MEDS: MEROPENEM 500 MG in IV NORMAL SALINE 50ML 50 ML IV SCH ×2 (05:21→16:48)
[2018-12-20 05:59] LABS: BASO % 0 % (0-3); EOS # 0.2 x10^3/uL (0.0-0.7); EOS % 2 % (0-3); LYMPH # 3.4 x10^3/uL (1.0-4.8); LYMPH % 32 % (24-48); MEAN CORPUSCULAR HEMOGLOBIN 33 pg (25-35); MEAN CORPUSCULAR HGB CONC 28 g/dL (31-37); MONO # 0.3 x10^3/uL (0.0-1.1); MONO % 3 % (0-9); NEUT # 6.9 x10^3uL (1.8-7.7); NEUT % 64 % (31-73); PLATELET COUNT 308 x10^3/uL (140-400); RED BLOOD COUNT 1.37 x10^6/uL (3.50-5.40); RED CELL DISTRIBUTION WIDTH 17.8 % (11.5-14.5); WHITE BLOOD COUNT 10.7 x10^3/uL (4.0-11.0)
[2018-12-20] MEDS: HYDROCORTISONE SOD SUCC/PF 100 MG/2 ML VIAL. IV SCH ×2 (06:00→16:49)
[2018-12-20 06:04] LABS: BLOOD UREA NITROGEN 17 mg/dL (7-20); CALCIUM 6.7 mg/dL (8.5-10.1); CHLORIDE 111 mmol/L (98-107); GFR 32.6; GLUCOSE 185 mg/dL (70-99); SODIUM 141 mmol/L (136-145)
[2018-12-20 06:08] LABS: CARBON DIOXIDE < 5 mmol/L (21-32); POTASSIUM 6.2 mmol/L (3.5-5.1)
--- NOTE | 2018-12-20 06:14 | NUR ---
Called imminent referral to [facility] at [phone]. Referral number: [id number]. Call with cardiac time of , plans to withdraw care, or any neurological changes.
[2018-12-20] MEDS: VASOPRESSIN 40 UNIT in IV DEXTROSE 5% 100ML 100 ML IV PRN (06:29)
[2018-12-20 06:39] LABS: HEMATOCRIT 16.4 % (36.0-47.0)
[2018-12-20] MEDS ORDERED: SODIUM BICARB ADULT 8.4% 50 MEQ/50 ML DISP.SYRIN. ONE ×2 (06:43→12:00)
[2018-12-20] MEDS ORDERED: SODIUM BICARB ADULT 8.4% 50 MEQ/50 ML DISP.SYRIN. IV ONE ×3 (07:00→09:45)
[2018-12-20] MEDS ORDERED: CALCIUM CHLORIDE 1,000 MG/10 ML DISP.SYRIN IV ONE (07:00)
--- NOTE | 2018-12-20 07:00 | NUR ---
Rec'd report. Pt on Levo, Ronald, Epi and Vaso gtts with BP per AL very low. Preparing to give 2 uPRBC quickly after lg bloody stool short time ago. Dr Raphael sotelo. Daughter at bedside. RN phoned to update on critical status. Pt ov vent overbreathing. Critical labs have and will be called as rec'd. SCTL pos blood return. EJ LT also good. Min UO. Pupis midsize and sluggish. Equal breath sounds.
--- NOTE | 2018-12-20 07:24 | NUR ---
Around 0630, went into patient's room to find a large amount of blood coming from rectum. Called lab to change the h&h to stat, received the critical results. Called Dr. Mcfarland at 0644 regarding critical labs and large bloody stool, orders received. Family at bedside.
[2018-12-20] MEDS ORDERED: PHYTONADIONE (VIT K1) IV 10 MG in IV DEXTROSE 5% 50 ML IV ONE ×2 (07:30→13:00)
--- NOTE | 2018-12-20 07:36 | EKG ---
[facility] [address] [place] [address] Test Date: 2018-12-19 Test Time: 15:20:04 Pat Name: MADELEINE HELM Department: Room: [facility] Gender: F [employer]: : 1975 Requested By: KASI WORKMAN Order Number: [id number] Reading MD: Yousuf Delgado Measurements Intervals [place] Rate: 151 P: PA: QRS: 22 QRSD: 82 T: 59 QT: 302 QTc: 487 Interpretive Statements SUPRAVENTRICULAR TACHYCARDIA NON SPECIFIC T ABNORMALITY NON SPECIFIC ST DEPRESSION Electronically Signed On 12-22-2018 9:44:57 CDT by Yousuf Delgado
[2018-12-20 07:42] LABS: PARTIAL THROMBOPLASTIN TIME > 150 SEC (24-38); PROTHROMBIN TIME PATIENT > 120.0 SEC (11.7-14.0)
--- NOTE | 2018-12-20 08:58 | PDOC2 ---
GI CONSULT Reason For Consult: perf bowel gi bleed HPI: HPI: 43 y/o female who we have seen in the past for chest/abd pain, n/v, anorexia, and h/o Sabi-en-Y w/ anastomotic ulcer. Discharged from , brought her to ER - he says she reported chest pain, SOA, and stomach cramping (he says related to lactulose). Admitted to ICU w/ sepsis, currently intubated and hypotensive on pressors. X- rays showed pneumoperitoneum - surgery saw last night, not a surgical candidate w/ coagulopathy, etc. Per RN, was advised pt too unstable to CT A/P yesterday. GI consulted this morning re: hematochezia. Last admission: EGD 11/08/18: healed esophagitis (undetermined baseline), s/p Sabi-en-Y, prior ulcer healed w/ visible staple, Sabi-limp normal no extent of exam. SBS 11/08/18: no bowel obstruction, no anastomotic stricture at the gastrojejunal junction. Head CT 11/09 and 12/19/18: No acute intracranial findings. Hepatitis panel, SHAHANA, ASMA, heavy metal screen neg/normal. 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 No previous colonoscopy. S/p cholecystectomy. Per previous consults, on OxyContin and Percocet for chronic knee pain, previously denies NSAIDs. Additional h/o DVT on Xarelto. At , noted w/ elevated ammonia. thinks she was taking Protonix. PMH: PMH: HTN, PE, DVT, GERD, hepatic steatosis, DM cholecystectomy, hernia repair w/ mesh, panniculectomy, Sabi-en-Y, IVC filter, liver biopsy, tubal ligation FH: Family History: No pertinent hx Social History: Smoke: No ALCOHOL: none Drugs: None ROS: Unable to obtain. Vitals: Vitals: Vital Signs Date Time Temp Pulse Resp B/P (MAP) Pulse Ox O2 Delivery O2 Flow Rate FiO2 12/20/18 08:51 95.8 130 26 86/75 95.8 12/20/18 06:00 Ventilator 12/19/18 23:00 100 Labs: Labs: Laboratory Tests Test 12/19/18 13:50 12/19/18 15:15 12/19/18 17:50 12/19/18 20:15 White Blood Count 7.5 x10^3/uL (4.0-11.0) 5.7 x10^3/uL (4.0-11.0) Red Blood Count 3.10 x10^6/uL (3.50-5.40) 2.55 x10^6/uL (3.50-5.40) Hemoglobin 10.0 g/dL (12.0-15.5) 8.3 g/dL (12.0-15.5) Hematocrit 31.5 % (36.0-47.0) 26.7 % (36.0-47.0) Mean Corpuscular Volume 102 fL (79-100) 105 fL (79-100) Mean Corpuscular Hemoglobin 32 pg (25-35) 32 pg (25-35) Mean Corpuscular Hemoglobin Concent 32 g/dL (31-37) 31 g/dL (31-37) Red Cell Distribution Width 17.6 % (11.5-14.5) 17.3 % (11.5-14.5) Platelet Count 454 x10^3/uL (140-400) 475 x10^3/uL (140-400) Neutrophils (%) (Auto) 63 % (31-73) 78 % (31-73) Lymphocytes (%) (Auto) 30 % (24-48) 15 % (24-48) Monocytes (%) (Auto) 7 % (0-9) 4 % (0-9) Eosinophils (%) (Auto) 0 % (0-3) 1 % (0-3) Basophils (%) (Auto) 1 % (0-3) 0 % (0-3) Neutrophils # (Auto) 4.8 x10^3uL (1.8-7.7) 4.5 x10^3uL (1.8-7.7) Lymphocytes # (Auto) 2.2 x10^3/uL (1.0-4.8) 0.9 x10^3/uL (1.0-4.8) Monocytes # (Auto) 0.5 x10^3/uL (0.0-1.1) 0.3 x10^3/uL (0.0-1.1) Eosinophils # (Auto) 0.0 x10^3/uL (0.0-0.7) 0.1 x10^3/uL (0.0-0.7) Basophils # (Auto) 0.0 x10^3/uL (0.0-0.2) 0.0 x10^3/uL (0.0-0.2) Prothrombin Time 53.3 SEC (11.7-14.0) Prothromb Time International Ratio 5.9 (0.8-1.1) Activated Partial Thromboplast Time 143 SEC (24-38) Sodium Level 137 mmol/L (136-145) 141 mmol/L (136-145) Potassium Level 5.2 mmol/L (3.5-5.1) 5.0 mmol/L (3.5-5.1) Chloride Level 107 mmol/L (98-107) 114 mmol/L (98-107) Carbon Dioxide Level 13 mmol/L (21-32) 9 mmol/L (21-32) Anion Gap 17 (6-14) 18 (6-14) Blood Urea Nitrogen 18 mg/dL (7-20) 16 mg/dL (7-20) Creatinine 1.9 mg/dL (0.6-1.0) 1.5 mg/dL (0.6-1.0) Estimated GFR (Cockcroft-Gault) 34.6 45.4 BUN/Creatinine Ratio 9 (6-20) Glucose Level 157 mg/dL (70-99) 159 mg/dL (70-99) Lactic Acid Level 5.9 mmol/L (0.4-2.0) 5.2 mmol/L (0.4-2.0) Calcium Level 8.4 mg/dL (8.5-10.1) 7.1 mg/dL (8.5-10.1) Magnesium Level 1.8 mg/dL (1.8-2.4) Total Bilirubin 3.8 mg/dL (0.2-1.0) 3.2 mg/dL (0.2-1.0) Aspartate Amino Transf (AST/SGOT) 77 U/L (15-37) 59 U/L (15-37) Alanine Aminotransferase (ALT/SGPT) 58 U/L (14-59) 45 U/L (14-59) Alkaline Phosphatase 98 U/L (46-116) 75 U/L (46-116) Creatine Kinase 201 U/L (26-192) 242 U/L (26-192) Creatine Kinase MB (Mass) 2.9 ng/mL (0.0-3.6) 3.2 ng/mL (0.0-3.6) Creatine Kinase MB Relative Index 1.4 % (0-4) 1.3 % (0-4) Troponin I Quantitative < 0.017 ng/mL (0.000-0.055) 0.047 ng/mL (0.000-0.055) Total Protein 5.4 g/dL (6.4-8.2) 4.1 g/dL (6.4-8.2) Albumin 1.7 g/dL (3.4-5.0) 1.3 g/dL (3.4-5.0) Albumin/Globulin Ratio 0.5 (1.0-1.7) Urine Collection Type Unknown Urine Color Red Urine Clarity Clear Urine pH 5.5 Urine Specific [place] 1.025 Urine Protein Negative mg/dL (NEG-TRACE) Urine Glucose (UA) Negative mg/dL (NEG) Urine Ketones (Stick) Trace mg/dL (NEG) Urine Blood Negative (NEG) Urine Nitrite Positive (NEG) Urine Bilirubin Large (NEG) Urine Urobilinogen Dipstick 4.0 mg/dL (0.2 mg/dL) Urine Leukocyte Esterase Small (NEG) Urine RBC 0 /HPF (0-2) Urine WBC 5-10 /HPF (0-4) Urine Squamous Epithelial Cells None /LPF Urine Bacteria 0 /HPF (0-FEW) Urine Hyaline Casts Many /HPF Urine Mucus Mod /LPF Direct Bilirubin 2.8 mg/dL (0.0-0.2) Ammonia 129 mcmol/L (11-34) Segmented Neutrophils % 57 % (35-66) Band Neutrophils % 21 % (0-9) Lymphocytes % 10 % (24-48) Monocytes % 5 % (0-10) Metamyelocytes % 7 % (0-0) Nucleated Red Blood Cells 4 Toxic Vacuolation Slight Platelet Estimate Adequate (ADEQUATE) Polychromasia Occasional Anisocytosis Slight Microcytosis Slight Test 12/19/18 20:18 12/19/18 23:28 12/20/18 00:35 12/20/18 05:40 O2 Saturation 94 % (92-99) 97 % (92-99) 98 % (92-99) Arterial Blood pH 7.19 (7.35-7.45) 6.92 (7.35-7.45) 7.10 (7.35-7.45) Arterial Blood pCO2 at Patient Temp 20 mmHg (35-46) 20 mmHg (35-46) 18 mmHg (35-46) Arterial Blood pO2 at Patient Temp 91 mmHg (75-108) 149 mmHg (75-108) 149 mmHg (75-108) Arterial Blood HCO3 8 mmol/L (21-28) 4 mmol/L (21-28) 5 mmol/L (21-28) Arterial Blood Base Excess -19 mmol/L (-3-3) -27 mmol/L (-3-3) -22 mmol/L (-3-3) FiO2 21 30 30 White Blood Count 10.7 x10^3/uL (4.0-11.0) Red Blood Count 1.37 x10^6/uL (3.50-5.40) Hemoglobin 4.6 g/dL (12.0-15.5) Hematocrit 16.4 % (36.0-47.0) Mean Corpuscular Volume 120 fL (79-100) Mean Corpuscular Hemoglobin 33 pg (25-35) Mean Corpuscular Hemoglobin Concent 28 g/dL (31-37) Red Cell Distribution Width 17.8 % (11.5-14.5) Platelet Count 308 x10^3/uL (140-400) Neutrophils (%) (Auto) 64 % (31-73) Lymphocytes (%) (Auto) 32 % (24-48) Monocytes (%) (Auto) 3 % (0-9) Eosinophils (%) (Auto) 2 % (0-3) Basophils (%) (Auto) 0 % (0-3) Neutrophils # (Auto) 6.9 x10^3uL (1.8-7.7) Lymphocytes # (Auto) 3.4 x10^3/uL (1.0-4.8) Monocytes # (Auto) 0.3 x10^3/uL (0.0-1.1) Eosinophils # (Auto) 0.2 x10^3/uL (0.0-0.7) Basophils # (Auto) 0.0 x10^3/uL (0.0-0.2) Sodium Level 141 mmol/L (136-145) Potassium Level 6.2 mmol/L (3.5-5.1) Chloride Level 111 mmol/L (98-107) Carbon Dioxide Level < 5 mmol/L (21-32) Anion Gap (6-14) Blood Urea Nitrogen 17 mg/dL (7-20) Creatinine 2.0 mg/dL (0.6-1.0) Estimated GFR (Cockcroft-Gault) 32.6 Glucose Level 185 mg/dL (70-99) Lactic Acid Level 19.7 mmol/L (0.4-2.0) Calcium Level 6.7 mg/dL (8.5-10.1) Test 12/20/18 06:45 Prothrombin Time > 120.0 SEC (11.7-14.0) Prothromb Time International Ratio > 15.0 (0.8-1.1) Activated Partial Thromboplast Time > 150 SEC (24-38) Allergies: Coded Allergies: banana (Verified Allergy, Severe, SWELLING TO MOUTH AND TONGUE, 04/20/18) cephalexin (Verified Allergy, Severe, "SWELLING TO MOUTH", 12/19/18) Tolerates merrem shrimp (Verified Allergy, Severe, SWELLING TO MOUTH AND TONGUE, 04/20/18) fentanyl (Verified Allergy, Intermediate, 07/02/18) I S O L A T I O N *CONTACT* (Verified Allergy, Unknown, 11/10/18) ESBL Medications: Current Medications Medications (Trade) Dose Ordered Sig/Alta Route PRN Reason Start Time Stop Time Status Last Admin Dose Admin Vasopressin 40 unit/Dextrose 102 ml @ 6 mls/hr CONT PRN IV SEE I/O RECORD 12/19/18 17:15 12/20/18 06:29 Norepinephrine Bitartrate 250 ml @ 1.875 mls/ hr CONT PRN IV SEE I/O RECORD 12/19/18 18:15 12/20/18 04:40 DC 12/19/18 23:57 Morphine Sulfate (Morphine Sulfate) 4 mg PRN Q1HR PRN IV PAIN 12/19/18 18:15 12/19/18 21:21 Hydrocortisone Sodium Succinate (Solu-CORTEF) 100 mg Q8HRS IV 12/19/18 22:00 12/20/18 06:00 Phenylephrine HCl 20 mg/Sodium Chloride 252 ml @ 22.68 mls/ hr CONT PRN IV SEE I/O RECORD 12/19/18 20:00 12/20/18 02:00 DC 12/19/18 23:57 Midazolam HCl 100 ml @ 0 mls/hr CONT PRN IV SEE PROTOCOL 12/19/18 20:30 12/19/18 20:59 Sodium Bicarbonate 150 meq/Dextrose 1,150 ml @ 75 mls/hr [id number] IV 12/19/18 21:00 12/19/18 20:59 Meropenem 500 mg/ Sodium Chloride 50 ml @ 100 mls/hr Q8HRS IV 12/19/18 22:00 12/20/18 05:21 Linezolid/Dextrose 300 ml @ 300 mls/hr Q12HR IV 12/20/18 09:00 12/20/18 08:46 Linezolid/Dextrose 300 ml @ 300 mls/hr 1X ONCE IV 12/19/18 22:00 12/19/18 22:59 DC 12/19/18 22:42 Sodium Bicarbonate (Sodium Bicarb Adult 8.4% Syr) 100 meq 1X ONCE IV 12/20/18 00:00 12/20/18 00:01 DC 12/19/18 23:52 Digoxin (Lanoxin) 500 mcg 1X ONCE IV 12/20/18 01:30 12/20/18 01:31 DC 12/20/18 01:11 Phenylephrine HCl 80 mg/Sodium Chloride 258 ml @ 9.67 mls/hr CONT PRN IV SEE I/O RECORD 12/20/18 01:45 12/20/18 06:29 Norepinephrine Bitartrate 32 mg/ Sodium Chloride 250 ml @ 0.46 mls/hr CONT PRN IV SEE I/O RECORD 12/20/18 04:45 12/20/18 05:21 Epinephrine HCl 4 mg/Sodium Chloride 254 ml @ 31.1 mls/hr CONT PRN IV SEE I/O RECORD 12/20/18 07:00 12/20/18 06:56 Sodium Bicarbonate (Sodium Bicarb Adult 8.4% Syr) 150 meq 1X ONCE IV 12/20/18 07:00 12/20/18 07:01 DC 12/20/18 06:48 Calcium Chloride (Calcium Chloride) 1,000 mg 1X ONCE IV 12/20/18 07:00 12/20/18 07:01 DC 12/20/18 07:20 Phytonadione 10 mg/Dextrose 51 ml @ 102 mls/hr 1X ONCE IV 12/20/18 07:30 12/20/18 07:59 DC 12/20/18 07:11 Imaging: Imaging: Reviewed in [employer]. KUB 12/20/18 IMPRESSION: Redemonstration of pneumoperitoneum. KUB 12/19/18 IMPRESSION: 1. Evidence of free intraperitoneal gas. This is concerning for bowel p erforation this was discussed with Melanie in the ICU, and a CT scan has been ordered. 2. Possible small left apical pneumothorax. Recommend short-term follow-up chest x-ray. PE: GEN: intubated, warming blankets HEENT: Atraumatic LUNGS: vent HEART: tachycardic ABD: some firmness, quiet EXTREMITY: No edema SKIN: No rashes, no jaundice NEURO/PSYCH: sedated A/P: A/P: Pneumoperitoneum, resp failure, hematochezia Lactic acidosis, anemia, coagulopathy, hyperkalemia/LEELEE, ?UTI, hyperammonemia S/p Sabi-en-Y and h/o anastomotic ulcer - healed 10/2018 H/o abnormal LFTs and abnormal iron studies - workup as above, liver biopsy w/ marked steatosis and steatohepatitis CRC screen - average risk S/p cholecystectomy H/o DVT and IVC filter - on Xarelto Chronic pain -- MOF, not a surgical candidate. Plans for transfusions and PC consult. Poor prognosis, have reviewed w/ Dr. Watt who will see later. SHAMIR DAMON December 20, 2018 08:58
--- NOTE | 2018-12-20 09:00 | NUR ---
Blood products PRBC and FFP infusing. DR Joe here. Dr Gonzalez updated with ABG. Dr Jean and Shukri called for consults.. Donna mendieta applied for temp 94 rectal.
[2018-12-20] MEDS: SODIUM BICARBONATE VIAL 150 MEQ in IV DEXTROSE 5% 1,000 ML IV SCH (09:03)
--- NOTE | 2018-12-20 09:03 | PDOC ---
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 skin nad Labs Lab Laboratory Tests Test 12/19/18 13:50 12/19/18 15:15 12/19/18 17:50 12/19/18 20:15 White Blood Count 7.5 x10^3/uL (4.0-11.0) 5.7 x10^3/uL (4.0-11.0) Red Blood Count 3.10 x10^6/uL (3.50-5.40) 2.55 x10^6/uL (3.50-5.40) Hemoglobin 10.0 g/dL (12.0-15.5) 8.3 g/dL (12.0-15.5) Hematocrit 31.5 % (36.0-47.0) 26.7 % (36.0-47.0) Mean Corpuscular Volume 102 fL (79-100) 105 fL (79-100) Mean Corpuscular Hemoglobin 32 pg (25-35) 32 pg (25-35) Mean Corpuscular Hemoglobin Concent 32 g/dL (31-37) 31 g/dL (31-37) Red Cell Distribution Width 17.6 % (11.5-14.5) 17.3 % (11.5-14.5) Platelet Count 454 x10^3/uL (140-400) 475 x10^3/uL (140-400) Neutrophils (%) (Auto) 63 % (31-73) 78 % (31-73) Lymphocytes (%) (Auto) 30 % (24-48) 15 % (24-48) Monocytes (%) (Auto) 7 % (0-9) 4 % (0-9) Eosinophils (%) (Auto) 0 % (0-3) 1 % (0-3) Basophils (%) (Auto) 1 % (0-3) 0 % (0-3) Neutrophils # (Auto) 4.8 x10^3uL (1.8-7.7) 4.5 x10^3uL (1.8-7.7) Lymphocytes # (Auto) 2.2 x10^3/uL (1.0-4.8) 0.9 x10^3/uL (1.0-4.8) Monocytes # (Auto) 0.5 x10^3/uL (0.0-1.1) 0.3 x10^3/uL (0.0-1.1) Eosinophils # (Auto) 0.0 x10^3/uL (0.0-0.7) 0.1 x10^3/uL (0.0-0.7) Basophils # (Auto) 0.0 x10^3/uL (0.0-0.2) 0.0 x10^3/uL (0.0-0.2) Prothrombin Time 53.3 SEC (11.7-14.0) Prothromb Time International Ratio 5.9 (0.8-1.1) Activated Partial Thromboplast Time 143 SEC (24-38) Sodium Level 137 mmol/L (136-145) 141 mmol/L (136-145) Potassium Level 5.2 mmol/L (3.5-5.1) 5.0 mmol/L (3.5-5.1) Chloride Level 107 mmol/L (98-107) 114 mmol/L (98-107) Carbon Dioxide Level 13 mmol/L (21-32) 9 mmol/L (21-32) Anion Gap 17 (6-14) 18 (6-14) Blood Urea Nitrogen 18 mg/dL (7-20) 16 mg/dL (7-20) Creatinine 1.9 mg/dL (0.6-1.0) 1.5 mg/dL (0.6-1.0) Estimated GFR (Cockcroft-Gault) 34.6 45.4 BUN/Creatinine Ratio 9 (6-20) Glucose Level 157 mg/dL (70-99) 159 mg/dL (70-99) Lactic Acid Level 5.9 mmol/L (0.4-2.0) 5.2 mmol/L (0.4-2.0) Calcium Level 8.4 mg/dL (8.5-10.1) 7.1 mg/dL (8.5-10.1) Magnesium Level 1.8 mg/dL (1.8-2.4) Total Bilirubin 3.8 mg/dL (0.2-1.0) 3.2 mg/dL (0.2-1.0) Aspartate Amino Transf (AST/SGOT) 77 U/L (15-37) 59 U/L (15-37) Alanine Aminotransferase (ALT/SGPT) 58 U/L (14-59) 45 U/L (14-59) Alkaline Phosphatase 98 U/L (46-116) 75 U/L (46-116) Creatine Kinase 201 U/L (26-192) 242 U/L (26-192) Creatine Kinase MB (Mass) 2.9 ng/mL (0.0-3.6) 3.2 ng/mL (0.0-3.6) Creatine Kinase MB Relative Index 1.4 % (0-4) 1.3 % (0-4) Troponin I Quantitative < 0.017 ng/mL (0.000-0.055) 0.047 ng/mL (0.000-0.055) Total Protein 5.4 g/dL (6.4-8.2) 4.1 g/dL (6.4-8.2) Albumin 1.7 g/dL (3.4-5.0) 1.3 g/dL (3.4-5.0) Albumin/Globulin Ratio 0.5 (1.0-1.7) Urine Collection Type Unknown Urine Color Red Urine Clarity Clear Urine pH 5.5 Urine Specific [place] 1.025 Urine Protein Negative mg/dL (NEG-TRACE) Urine Glucose (UA) Negative mg/dL (NEG) Urine Ketones (Stick) Trace mg/dL (NEG) Urine Blood Negative (NEG) Urine Nitrite Positive (NEG) Urine Bilirubin Large (NEG) Urine Urobilinogen Dipstick 4.0 mg/dL (0.2 mg/dL) Urine Leukocyte Esterase Small (NEG) Urine RBC 0 /HPF (0-2) Urine WBC 5-10 /HPF (0-4) Urine Squamous Epithelial Cells None /LPF Urine Bacteria 0 /HPF (0-FEW) Urine Hyaline Casts Many /HPF Urine Mucus Mod /LPF Direct Bilirubin 2.8 mg/dL (0.0-0.2) Ammonia 129 mcmol/L (11-34) Segmented Neutrophils % 57 % (35-66) Band Neutrophils % 21 % (0-9) Lymphocytes % 10 % (24-48) Monocytes % 5 % (0-10) Metamyelocytes % 7 % (0-0) Nucleated Red Blood Cells 4 Toxic Vacuolation Slight Platelet Estimate Adequate (ADEQUATE) Polychromasia Occasional Anisocytosis Slight Microcytosis Slight Test 12/19/18 20:18 12/19/18 23:28 12/20/18 00:35 12/20/18 05:40 O2 Saturation 94 % (92-99) 97 % (92-99) 98 % (92-99) Arterial Blood pH 7.19 (7.35-7.45) 6.92 (7.35-7.45) 7.10 (7.35-7.45) Arterial Blood pCO2 at Patient Temp 20 mmHg (35-46) 20 mmHg (35-46) 18 mmHg (35-46) Arterial Blood pO2 at Patient Temp 91 mmHg (75-108) 149 mmHg (75-108) 149 mmHg (75-108) Arterial Blood HCO3 8 mmol/L (21-28) 4 mmol/L (21-28) 5 mmol/L (21-28) Arterial Blood Base Excess -19 mmol/L (-3-3) -27 mmol/L (-3-3) -22 mmol/L (-3-3) FiO2 21 30 30 White Blood Count 10.7 x10^3/uL (4.0-11.0) Red Blood Count 1.37 x10^6/uL (3.50-5.40) Hemoglobin 4.6 g/dL (12.0-15.5) Hematocrit 16.4 % (36.0-47.0) Mean Corpuscular Volume 120 fL (79-100) Mean Corpuscular Hemoglobin 33 pg (25-35) Mean Corpuscular Hemoglobin Concent 28 g/dL (31-37) Red Cell Distribution Width 17.8 % (11.5-14.5) Platelet Count 308 x10^3/uL (140-400) Neutrophils (%) (Auto) 64 % (31-73) Lymphocytes (%) (Auto) 32 % (24-48) Monocytes (%) (Auto) 3 % (0-9) Eosinophils (%) (Auto) 2 % (0-3) Basophils (%) (Auto) 0 % (0-3) Neutrophils # (Auto) 6.9 x10^3uL (1.8-7.7) Lymphocytes # (Auto) 3.4 x10^3/uL (1.0-4.8) Monocytes # (Auto) 0.3 x10^3/uL (0.0-1.1) Eosinophils # (Auto) 0.2 x10^3/uL (0.0-0.7) Basophils # (Auto) 0.0 x10^3/uL (0.0-0.2) Sodium Level 141 mmol/L (136-145) Potassium Level 6.2 mmol/L (3.5-5.1) Chloride Level 111 mmol/L (98-107) Carbon Dioxide Level < 5 mmol/L (21-32) Anion Gap (6-14) Blood Urea Nitrogen 17 mg/dL (7-20) Creatinine 2.0 mg/dL (0.6-1.0) Estimated GFR (Cockcroft-Gault) 32.6 Glucose Level 185 mg/dL (70-99) Lactic Acid Level 19.7 mmol/L (0.4-2.0) Calcium Level 6.7 mg/dL (8.5-10.1) Test 12/20/18 06:45 Prothrombin Time > 120.0 SEC (11.7-14.0) Prothromb Time International Ratio > 15.0 (0.8-1.1) Activated Partial Thromboplast Time > 150 SEC (24-38) Micro culture neg Objective Assessment Perforated viscus, not a surgical candidate Severe sepsis Lactic acidosis GI bleed Liver failure Respiratory failure Circulatory failure Renal insufficiency MOF Plan Plan of Care cont meropenem and zyvox cont supportive care prognosis poor, d/w d/w GI d/w JOSE ALBERTO JAMIL MD December 20, 2018 09:03
[2018-12-20 09:05] LABS: BASE EXCESS ABG -25 mmol/L (-3-3); HCO3 ABG 5 mmol/L (21-28); PO2 ABG 136 mmHg (75-108); SAT O2 ABG 98 % (92-99)
[2018-12-20 09:06] LABS: CORRECTED PCO2 ABG 19 mmHg; CORRECTED PH ABG 7.01; CORRECTED PO2 ABG 124 mmHg
[2018-12-20 09:41] LABS: ALBUMIN 0.7 g/dL (3.4-5.0); DIRECT BILIRUBIN 1.7 mg/dL (0.0-0.2); TOTAL PROTEIN 2.9 g/dL (6.4-8.2)
--- NOTE | 2018-12-20 10:00 | NUR ---
Palliative consult called. FFP and PRBC cont to be infused. Labs repeated and criticals called to Dr anderson and DR Pedroza. Status explained to as best possible. Seen by DR Watt and talked with Dr Abreu on phone. Consult called to Dr Stewart. All lines intact. Unable to turn pt to clean after earlier bloody stool
--- NOTE | 2018-12-20 10:09 | PDOC ---
PROGRESS NOTES Chief Complaint Chief Complaint Septic shock Bowel perforation - too unstable for CT, free air noted on KUB Anemia - 4u PRBC Coagulopathy - hx of PE INR supratherapeutic - 4 units FFP ordered Transaminitis most likely secondary to steatohepatitis noted previously - now appears to be due to septic shock Chest pain acute coronary syndrome ruled out previously H/O MDRO - e. coli UTI: 5-10WBC, positive nitrite and LE - Merrem 10 days History of pulmonary embolism last year Old thrombus noted, back on anticoagulation - now with supratherapeutic INR linear filling defects in the bilateral pulmonary arteries which could be secondary to old recanalized embolus. 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 Admitted to ICU with dx of sepsis and anemia. Plain films show free air under the diaphragm. Has hx of marginal ulcer which had resolved per recent EGD. [She as recently admitted for chest pain back in October 2018, seen by cardiology, GI, pulmonology. found with bilirubin of 3 and a MDRO UTI. Seen by pulm for h/o PE, CTPA shows some recanalization, her xarelto was restarted. As she was very deconditioned 2/2 her UTI with sepsis she was seen fit for acute rehabilitation by physical and occupational therapy and was discharged to SNF. Seen 03/2018 and 06/2018 for chest pain, vomiting, coughing, EGD in 03/2018 showed reflux esophagitis and Sabi-en-Y anatomy w/ anastomotic ulcer. She has difficulty with compliance w/ sucralfate and PPI at home. She was seen by GI and had hemochromatosis mutation (carrier only) and otherwise labs not revealing of etiology and therefore underwent liver biopsy on 11/20/18 that revealed prominent steatosis without significant fibrosis or iron accumulation.] Hb dropped from 10-->8.30-->4.6. INR 15. KUB still shows free air. Seen on vent AC mode, warming blanket, levophed maxed out, epinephrine off currently. Receiving transfusion. Lactate up to 19.7 this morning. Discussed with and daughter bedside her overall grim prognosis with septic shock, in DIC currently. Plan: DIC panel and renal q6hrs. cryoprecipitate if fibrinogen low. 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 ) Skin: No rashes, Other Labs LABS Laboratory Tests Test 12/19/18 13:50 12/19/18 15:15 12/19/18 17:50 12/19/18 20:15 White Blood Count 7.5 x10^3/uL (4.0-11.0) 5.7 x10^3/uL (4.0-11.0) Red Blood Count 3.10 x10^6/uL (3.50-5.40) 2.55 x10^6/uL (3.50-5.40) Hemoglobin 10.0 g/dL (12.0-15.5) 8.3 g/dL (12.0-15.5) Hematocrit 31.5 % (36.0-47.0) 26.7 % (36.0-47.0) Mean Corpuscular Volume 102 fL (79-100) 105 fL (79-100) Mean Corpuscular Hemoglobin 32 pg (25-35) 32 pg (25-35) Mean Corpuscular Hemoglobin Concent 32 g/dL (31-37) 31 g/dL (31-37) Red Cell Distribution Width 17.6 % (11.5-14.5) 17.3 % (11.5-14.5) Platelet Count 454 x10^3/uL (140-400) 475 x10^3/uL (140-400) Neutrophils (%) (Auto) 63 % (31-73) 78 % (31-73) Lymphocytes (%) (Auto) 30 % (24-48) 15 % (24-48) Monocytes (%) (Auto) 7 % (0-9) 4 % (0-9) Eosinophils (%) (Auto) 0 % (0-3) 1 % (0-3) Basophils (%) (Auto) 1 % (0-3) 0 % (0-3) Neutrophils # (Auto) 4.8 x10^3uL (1.8-7.7) 4.5 x10^3uL (1.8-7.7) Lymphocytes # (Auto) 2.2 x10^3/uL (1.0-4.8) 0.9 x10^3/uL (1.0-4.8) Monocytes # (Auto) 0.5 x10^3/uL (0.0-1.1) 0.3 x10^3/uL (0.0-1.1) Eosinophils # (Auto) 0.0 x10^3/uL (0.0-0.7) 0.1 x10^3/uL (0.0-0.7) Basophils # (Auto) 0.0 x10^3/uL (0.0-0.2) 0.0 x10^3/uL (0.0-0.2) Prothrombin Time 53.3 SEC (11.7-14.0) Prothromb Time International Ratio 5.9 (0.8-1.1) Activated Partial Thromboplast Time 143 SEC (24-38) Sodium Level 137 mmol/L (136-145) 141 mmol/L (136-145) Potassium Level 5.2 mmol/L (3.5-5.1) 5.0 mmol/L (3.5-5.1) Chloride Level 107 mmol/L (98-107) 114 mmol/L (98-107) Carbon Dioxide Level 13 mmol/L (21-32) 9 mmol/L (21-32) Anion Gap 17 (6-14) 18 (6-14) Blood Urea Nitrogen 18 mg/dL (7-20) 16 mg/dL (7-20) Creatinine 1.9 mg/dL (0.6-1.0) 1.5 mg/dL (0.6-1.0) Estimated GFR (Cockcroft-Gault) 34.6 45.4 BUN/Creatinine Ratio 9 (6-20) Glucose Level 157 mg/dL (70-99) 159 mg/dL (70-99) Lactic Acid Level 5.9 mmol/L (0.4-2.0) 5.2 mmol/L (0.4-2.0) Calcium Level 8.4 mg/dL (8.5-10.1) 7.1 mg/dL (8.5-10.1) Magnesium Level 1.8 mg/dL (1.8-2.4) Total Bilirubin 3.8 mg/dL (0.2-1.0) 3.2 mg/dL (0.2-1.0) Aspartate Amino Transf (AST/SGOT) 77 U/L (15-37) 59 U/L (15-37) Alanine Aminotransferase (ALT/SGPT) 58 U/L (14-59) 45 U/L (14-59) Alkaline Phosphatase 98 U/L (46-116) 75 U/L (46-116) Creatine Kinase 201 U/L (26-192) 242 U/L (26-192) Creatine Kinase MB (Mass) 2.9 ng/mL (0.0-3.6) 3.2 ng/mL (0.0-3.6) Creatine Kinase MB Relative Index 1.4 % (0-4) 1.3 % (0-4) Troponin I Quantitative < 0.017 ng/mL (0.000-0.055) 0.047 ng/mL (0.000-0.055) Total Protein 5.4 g/dL (6.4-8.2) 4.1 g/dL (6.4-8.2) Albumin 1.7 g/dL (3.4-5.0) 1.3 g/dL (3.4-5.0) Albumin/Globulin Ratio 0.5 (1.0-1.7) Urine Collection Type Unknown Urine Color Red Urine Clarity Clear Urine pH 5.5 Urine Specific [place] 1.025 Urine Protein Negative mg/dL (NEG-TRACE) Urine Glucose (UA) Negative mg/dL (NEG) Urine Ketones (Stick) Trace mg/dL (NEG) Urine Blood Negative (NEG) Urine Nitrite Positive (NEG) Urine Bilirubin Large (NEG) Urine Urobilinogen Dipstick 4.0 mg/dL (0.2 mg/dL) Urine Leukocyte Esterase Small (NEG) Urine RBC 0 /HPF (0-2) Urine WBC 5-10 /HPF (0-4) Urine Squamous Epithelial Cells None /LPF Urine Bacteria 0 /HPF (0-FEW) Urine Hyaline Casts Many /HPF Urine Mucus Mod /LPF Direct Bilirubin 2.8 mg/dL (0.0-0.2) Ammonia 129 mcmol/L (11-34) Segmented Neutrophils % 57 % (35-66) Band Neutrophils % 21 % (0-9) Lymphocytes % 10 % (24-48) Monocytes % 5 % (0-10) Metamyelocytes % 7 % (0-0) Nucleated Red Blood Cells 4 Toxic Vacuolation Slight Platelet Estimate Adequate (ADEQUATE) Polychromasia Occasional Anisocytosis Slight Microcytosis Slight Test 12/19/18 20:18 12/19/18 23:28 12/20/18 00:35 12/20/18 05:40 O2 Saturation 94 % (92-99) 97 % (92-99) 98 % (92-99) Arterial Blood pH 7.19 (7.35-7.45) 6.92 (7.35-7.45) 7.10 (7.35-7.45) Arterial Blood pCO2 at Patient Temp 20 mmHg (35-46) 20 mmHg (35-46) 18 mmHg (35-46) Arterial Blood pO2 at Patient Temp 91 mmHg (75-108) 149 mmHg (75-108) 149 mmHg (75-108) Arterial Blood HCO3 8 mmol/L (21-28) 4 mmol/L (21-28) 5 mmol/L (21-28) Arterial Blood Base Excess -19 mmol/L (-3-3) -27 mmol/L (-3-3) -22 mmol/L (-3-3) FiO2 21 30 30 White Blood Count 10.7 x10^3/uL (4.0-11.0) Red Blood Count 1.37 x10^6/uL (3.50-5.40) Hemoglobin 4.6 g/dL (12.0-15.5) Hematocrit 16.4 % (36.0-47.0) Mean Corpuscular Volume 120 fL (79-100) Mean Corpuscular Hemoglobin 33 pg (25-35) Mean Corpuscular Hemoglobin Concent 28 g/dL (31-37) Red Cell Distribution Width 17.8 % (11.5-14.5) Platelet Count 308 x10^3/uL (140-400) Neutrophils (%) (Auto) 64 % (31-73) Lymphocytes (%) (Auto) 32 % (24-48) Monocytes (%) (Auto) 3 % (0-9) Eosinophils (%) (Auto) 2 % (0-3) Basophils (%) (Auto) 0 % (0-3) Neutrophils # (Auto) 6.9 x10^3uL (1.8-7.7) Lymphocytes # (Auto) 3.4 x10^3/uL (1.0-4.8) Monocytes # (Auto) 0.3 x10^3/uL (0.0-1.1) Eosinophils # (Auto) 0.2 x10^3/uL (0.0-0.7) Basophils # (Auto) 0.0 x10^3/uL (0.0-0.2) Sodium Level 141 mmol/L (136-145) Potassium Level 6.2 mmol/L (3.5-5.1) Chloride Level 111 mmol/L (98-107) Carbon Dioxide Level < 5 mmol/L (21-32) Anion Gap (6-14) Blood Urea Nitrogen 17 mg/dL (7-20) Creatinine 2.0 mg/dL (0.6-1.0) Estimated GFR (Cockcroft-Gault) 32.6 Glucose Level 185 mg/dL (70-99) Lactic Acid Level 19.7 mmol/L (0.4-2.0) Calcium Level 6.7 mg/dL (8.5-10.1) Test 12/20/18 06:45 12/20/18 09:01 Prothrombin Time > 120.0 SEC (11.7-14.0) Prothromb Time International Ratio > 15.0 (0.8-1.1) Activated Partial Thromboplast Time > 150 SEC (24-38) Glucose (Fingerstick) 193 mg/dL (70-99) Comment Review of Relevant I have reviewed the following items leo (where applicable) has been applied. Labs Laboratory Tests Test 12/19/18 13:50 12/19/18 15:15 12/19/18 17:50 12/19/18 20:15 White Blood Count 7.5 x10^3/uL (4.0-11.0) 5.7 x10^3/uL (4.0-11.0) Red Blood Count 3.10 x10^6/uL (3.50-5.40) 2.55 x10^6/uL (3.50-5.40) Hemoglobin 10.0 g/dL (12.0-15.5) 8.3 g/dL (12.0-15.5) Hematocrit 31.5 % (36.0-47.0) 26.7 % (36.0-47.0) Mean Corpuscular Volume 102 fL (79-100) 105 fL (79-100) Mean Corpuscular Hemoglobin 32 pg (25-35) 32 pg (25-35) Mean Corpuscular Hemoglobin Concent 32 g/dL (31-37) 31 g/dL (31-37) Red Cell Distribution Width 17.6 % (11.5-14.5) 17.3 % (11.5-14.5) Platelet Count 454 x10^3/uL (140-400) 475 x10^3/uL (140-400) Neutrophils (%) (Auto) 63 % (31-73) 78 % (31-73) Lymphocytes (%) (Auto) 30 % (24-48) 15 % (24-48) Monocytes (%) (Auto) 7 % (0-9) 4 % (0-9) Eosinophils (%) (Auto) 0 % (0-3) 1 % (0-3) Basophils (%) (Auto) 1 % (0-3) 0 % (0-3) Neutrophils # (Auto) 4.8 x10^3uL (1.8-7.7) 4.5 x10^3uL (1.8-7.7) Lymphocytes # (Auto) 2.2 x10^3/uL (1.0-4.8) 0.9 x10^3/uL (1.0-4.8) Monocytes # (Auto) 0.5 x10^3/uL (0.0-1.1) 0.3 x10^3/uL (0.0-1.1) Eosinophils # (Auto) 0.0 x10^3/uL (0.0-0.7) 0.1 x10^3/uL (0.0-0.7) Basophils # (Auto) 0.0 x10^3/uL (0.0-0.2) 0.0 x10^3/uL (0.0-0.2) Prothrombin Time 53.3 SEC (11.7-14.0) Prothromb Time International Ratio 5.9 (0.8-1.1) Activated Partial Thromboplast Time 143 SEC (24-38) Sodium Level 137 mmol/L (136-145) 141 mmol/L (136-145) Potassium Level 5.2 mmol/L (3.5-5.1) 5.0 mmol/L (3.5-5.1) Chloride Level 107 mmol/L (98-107) 114 mmol/L (98-107) Carbon Dioxide Level 13 mmol/L (21-32) 9 mmol/L (21-32) Anion Gap 17 (6-14) 18 (6-14) Blood Urea Nitrogen 18 mg/dL (7-20) 16 mg/dL (7-20) Creatinine 1.9 mg/dL (0.6-1.0) 1.5 mg/dL (0.6-1.0) Estimated GFR (Cockcroft-Gault) 34.6 45.4 BUN/Creatinine Ratio 9 (6-20) Glucose Level 157 mg/dL (70-99) 159 mg/dL (70-99) Lactic Acid Level 5.9 mmol/L (0.4-2.0) 5.2 mmol/L (0.4-2.0) Calcium Level 8.4 mg/dL (8.5-10.1) 7.1 mg/dL (8.5-10.1) Magnesium Level 1.8 mg/dL (1.8-2.4) Total Bilirubin 3.8 mg/dL (0.2-1.0) 3.2 mg/dL (0.2-1.0) Aspartate Amino Transf (AST/SGOT) 77 U/L (15-37) 59 U/L (15-37) Alanine Aminotransferase (ALT/SGPT) 58 U/L (14-59) 45 U/L (14-59) Alkaline Phosphatase 98 U/L (46-116) 75 U/L (46-116) Creatine Kinase 201 U/L (26-192) 242 U/L (26-192) Creatine Kinase MB (Mass) 2.9 ng/mL (0.0-3.6) 3.2 ng/mL (0.0-3.6) Creatine Kinase MB Relative Index 1.4 % (0-4) 1.3 % (0-4) Troponin I Quantitative < 0.017 ng/mL (0.000-0.055) 0.047 ng/mL (0.000-0.055) Total Protein 5.4 g/dL (6.4-8.2) 4.1 g/dL (6.4-8.2) Albumin 1.7 g/dL (3.4-5.0) 1.3 g/dL (3.4-5.0) Albumin/Globulin Ratio 0.5 (1.0-1.7) Urine Collection Type Unknown Urine Color Red Urine Clarity Clear Urine pH 5.5 Urine Specific [place] 1.025 Urine Protein Negative mg/dL (NEG-TRACE) Urine Glucose (UA) Negative mg/dL (NEG) Urine Ketones (Stick) Trace mg/dL (NEG) Urine Blood Negative (NEG) Urine Nitrite Positive (NEG) Urine Bilirubin Large (NEG) Urine Urobilinogen Dipstick 4.0 mg/dL (0.2 mg/dL) Urine Leukocyte Esterase Small (NEG) Urine RBC 0 /HPF (0-2) Urine WBC 5-10 /HPF (0-4) Urine Squamous Epithelial Cells None /LPF Urine Bacteria 0 /HPF (0-FEW) Urine Hyaline Casts Many /HPF Urine Mucus Mod /LPF Direct Bilirubin 2.8 mg/dL (0.0-0.2) Ammonia 129 mcmol/L (11-34) Segmented Neutrophils % 57 % (35-66) Band Neutrophils % 21 % (0-9) Lymphocytes % 10 % (24-48) Monocytes % 5 % (0-10) Metamyelocytes % 7 % (0-0) Nucleated Red Blood Cells 4 Toxic Vacuolation Slight Platelet Estimate Adequate (ADEQUATE) Polychromasia Occasional Anisocytosis Slight Microcytosis Slight Test 12/19/18 20:18 12/19/18 23:28 12/20/18 00:35 12/20/18 05:40 O2 Saturation 94 % (92-99) 97 % (92-99) 98 % (92-99) Arterial Blood pH 7.19 (7.35-7.45) 6.92 (7.35-7.45) 7.10 (7.35-7.45) Arterial Blood pCO2 at Patient Temp 20 mmHg (35-46) 20 mmHg (35-46) 18 mmHg (35-46) Arterial Blood pO2 at Patient Temp 91 mmHg (75-108) 149 mmHg (75-108) 149 mmHg (75-108) Arterial Blood HCO3 8 mmol/L (21-28) 4 mmol/L (21-28) 5 mmol/L (21-28) Arterial Blood Base Excess -19 mmol/L (-3-3) -27 mmol/L (-3-3) -22 mmol/L (-3-3) FiO2 21 30 30 White Blood Count 10.7 x10^3/uL (4.0-11.0) Red Blood Count 1.37 x10^6/uL (3.50-5.40) Hemoglobin 4.6 g/dL (12.0-15.5) Hematocrit 16.4 % (36.0-47.0) Mean Corpuscular Volume 120 fL (79-100) Mean Corpuscular Hemoglobin 33 pg (25-35) Mean Corpuscular Hemoglobin Concent 28 g/dL (31-37) Red Cell Distribution Width 17.8 % (11.5-14.5) Platelet Count 308 x10^3/uL (140-400) Neutrophils (%) (Auto) 64 % (31-73) Lymphocytes (%) (Auto) 32 % (24-48) Monocytes (%) (Auto) 3 % (0-9) Eosinophils (%) (Auto) 2 % (0-3) Basophils (%) (Auto) 0 % (0-3) Neutrophils # (Auto) 6.9 x10^3uL (1.8-7.7) Lymphocytes # (Auto) 3.4 x10^3/uL (1.0-4.8) Monocytes # (Auto) 0.3 x10^3/uL (0.0-1.1) Eosinophils # (Auto) 0.2 x10^3/uL (0.0-0.7) Basophils # (Auto) 0.0 x10^3/uL (0.0-0.2) Sodium Level 141 mmol/L (136-145) Potassium Level 6.2 mmol/L (3.5-5.1) Chloride Level 111 mmol/L (98-107) Carbon Dioxide Level < 5 mmol/L (21-32) Anion Gap (6-14) Blood Urea Nitrogen 17 mg/dL (7-20) Creatinine 2.0 mg/dL (0.6-1.0) Estimated GFR (Cockcroft-Gault) 32.6 Glucose Level 185 mg/dL (70-99) Lactic Acid Level 19.7 mmol/L (0.4-2.0) Calcium Level 6.7 mg/dL (8.5-10.1) Test 12/20/18 06:45 12/20/18 09:01 Prothrombin Time > 120.0 SEC (11.7-14.0) Prothromb Time International Ratio > 15.0 (0.8-1.1) Activated Partial Thromboplast Time > 150 SEC (24-38) Glucose (Fingerstick) 193 mg/dL (70-99) Laboratory Tests Test 12/19/18 13:50 12/19/18 15:15 12/19/18 17:50 12/19/18 20:15 White Blood Count 7.5 x10^3/uL (4.0-11.0) 5.7 x10^3/uL (4.0-11.0) Red Blood Count 3.10 x10^6/uL (3.50-5.40) 2.55 x10^6/uL (3.50-5.40) Hemoglobin 10.0 g/dL (12.0-15.5) 8.3 g/dL (12.0-15.5) Hematocrit 31.5 % (36.0-47.0) 26.7 % (36.0-47.0) Mean Corpuscular Volume 102 fL (79-100) 105 fL (79-100) Mean Corpuscular Hemoglobin 32 pg (25-35) 32 pg (25-35) Mean Corpuscular Hemoglobin Concent 32 g/dL (31-37) 31 g/dL (31-37) Red Cell Distribution Width 17.6 % (11.5-14.5) 17.3 % (11.5-14.5) Platelet Count 454 x10^3/uL (140-400) 475 x10^3/uL (140-400) Neutrophils (%) (Auto) 63 % (31-73) 78 % (31-73) Lymphocytes (%) (Auto) 30 % (24-48) 15 % (24-48) Monocytes (%) (Auto) 7 % (0-9) 4 % (0-9) Eosinophils (%) (Auto) 0 % (0-3) 1 % (0-3) Basophils (%) (Auto) 1 % (0-3) 0 % (0-3) Neutrophils # (Auto) 4.8 x10^3uL (1.8-7.7) 4.5 x10^3uL (1.8-7.7) Lymphocytes # (Auto) 2.2 x10^3/uL (1.0-4.8) 0.9 x10^3/uL (1.0-4.8) Monocytes # (Auto) 0.5 x10^3/uL (0.0-1.1) 0.3 x10^3/uL (0.0-1.1) Eosinophils # (Auto) 0.0 x10^3/uL (0.0-0.7) 0.1 x10^3/uL (0.0-0.7) Basophils # (Auto) 0.0 x10^3/uL (0.0-0.2) 0.0 x10^3/uL (0.0-0.2) Prothrombin Time 53.3 SEC (11.7-14.0) Prothromb Time International Ratio 5.9 (0.8-1.1) Activated Partial Thromboplast Time 143 SEC (24-38) Sodium Level 137 mmol/L (136-145) 141 mmol/L (136-145) Potassium Level 5.2 mmol/L (3.5-5.1) 5.0 mmol/L (3.5-5.1) Chloride Level 107 mmol/L (98-107) 114 mmol/L (98-107) Carbon Dioxide Level 13 mmol/L (21-32) 9 mmol/L (21-32) Anion Gap 17 (6-14) 18 (6-14) Blood Urea Nitrogen 18 mg/dL (7-20) 16 mg/dL (7-20) Creatinine 1.9 mg/dL (0.6-1.0) 1.5 mg/dL (0.6-1.0) Estimated GFR (Cockcroft-Gault) 34.6 45.4 BUN/Creatinine Ratio 9 (6-20) Glucose Level 157 mg/dL (70-99) 159 mg/dL (70-99) Lactic Acid Level 5.9 mmol/L (0.4-2.0) 5.2 mmol/L (0.4-2.0) Calcium Level 8.4 mg/dL (8.5-10.1) 7.1 mg/dL (8.5-10.1) Magnesium Level 1.8 mg/dL (1.8-2.4) Total Bilirubin 3.8 mg/dL (0.2-1.0) 3.2 mg/dL (0.2-1.0) Aspartate Amino Transf (AST/SGOT) 77 U/L (15-37) 59 U/L (15-37) Alanine Aminotransferase (ALT/SGPT) 58 U/L (14-59) 45 U/L (14-59) Alkaline Phosphatase 98 U/L (46-116) 75 U/L (46-116) Creatine Kinase 201 U/L (26-192) 242 U/L (26-192) Creatine Kinase MB (Mass) 2.9 ng/mL (0.0-3.6) 3.2 ng/mL (0.0-3.6) Creatine Kinase MB Relative Index 1.4 % (0-4) 1.3 % (0-4) Troponin I Quantitative < 0.017 ng/mL (0.000-0.055) 0.047 ng/mL (0.000-0.055) Total Protein 5.4 g/dL (6.4-8.2) 4.1 g/dL (6.4-8.2) Albumin 1.7 g/dL (3.4-5.0) 1.3 g/dL (3.4-5.0) Albumin/Globulin Ratio 0.5 (1.0-1.7) Urine Collection Type Unknown Urine Color Red Urine Clarity Clear Urine pH 5.5 Urine Specific [place] 1.025 Urine Protein Negative mg/dL (NEG-TRACE) Urine Glucose (UA) Negative mg/dL (NEG) Urine Ketones (Stick) Trace mg/dL (NEG) Urine Blood Negative (NEG) Urine Nitrite Positive (NEG) Urine Bilirubin Large (NEG) Urine Urobilinogen Dipstick 4.0 mg/dL (0.2 mg/dL) Urine Leukocyte Esterase Small (NEG) Urine RBC 0 /HPF (0-2) Urine WBC 5-10 /HPF (0-4) Urine Squamous Epithelial Cells None /LPF Urine Bacteria 0 /HPF (0-FEW) Urine Hyaline Casts Many /HPF Urine Mucus Mod /LPF Direct Bilirubin 2.8 mg/dL (0.0-0.2) Ammonia 129 mcmol/L (11-34) Segmented Neutrophils % 57 % (35-66) Band Neutrophils % 21 % (0-9) Lymphocytes % 10 % (24-48) Monocytes % 5 % (0-10) Metamyelocytes % 7 % (0-0) Nucleated Red Blood Cells 4 Toxic Vacuolation Slight Platelet Estimate Adequate (ADEQUATE) Polychromasia Occasional Anisocytosis Slight Microcytosis Slight Test 12/19/18 20:18 12/19/18 23:28 12/20/18 00:35 12/20/18 05:40 O2 Saturation 94 % (92-99) 97 % (92-99) 98 % (92-99) Arterial Blood pH 7.19 (7.35-7.45) 6.92 (7.35-7.45) 7.10 (7.35-7.45) Arterial Blood pCO2 at Patient Temp 20 mmHg (35-46) 20 mmHg (35-46) 18 mmHg (35-46) Arterial Blood pO2 at Patient Temp 91 mmHg (75-108) 149 mmHg (75-108) 149 mmHg (75-108) Arterial Blood HCO3 8 mmol/L (21-28) 4 mmol/L (21-28) 5 mmol/L (21-28) Arterial Blood Base Excess -19 mmol/L (-3-3) -27 mmol/L (-3-3) -22 mmol/L (-3-3) FiO2 21 30 30 White Blood Count 10.7 x10^3/uL (4.0-11.0) Red Blood Count 1.37 x10^6/uL (3.50-5.40) Hemoglobin 4.6 g/dL (12.0-15.5) Hematocrit 16.4 % (36.0-47.0) Mean Corpuscular Volume 120 fL (79-100) Mean Corpuscular Hemoglobin 33 pg (25-35) Mean Corpuscular Hemoglobin Concent 28 g/dL (31-37) Red Cell Distribution Width 17.8 % (11.5-14.5) Platelet Count 308 x10^3/uL (140-400) Neutrophils (%) (Auto) 64 % (31-73) Lymphocytes (%) (Auto) 32 % (24-48) Monocytes (%) (Auto) 3 % (0-9) Eosinophils (%) (Auto) 2 % (0-3) Basophils (%) (Auto) 0 % (0-3) Neutrophils # (Auto) 6.9 x10^3uL (1.8-7.7) Lymphocytes # (Auto) 3.4 x10^3/uL (1.0-4.8) Monocytes # (Auto) 0.3 x10^3/uL (0.0-1.1) Eosinophils # (Auto) 0.2 x10^3/uL (0.0-0.7) Basophils # (Auto) 0.0 x10^3/uL (0.0-0.2) Sodium Level 141 mmol/L (136-145) Potassium Level 6.2 mmol/L (3.5-5.1) Chloride Level 111 mmol/L (98-107) Carbon Dioxide Level < 5 mmol/L (21-32) Anion Gap (6-14) Blood Urea Nitrogen 17 mg/dL (7-20) Creatinine 2.0 mg/dL (0.6-1.0) Estimated GFR (Cockcroft-Gault) 32.6 Glucose Level 185 mg/dL (70-99) Lactic Acid Level 19.7 mmol/L (0.4-2.0) Calcium Level 6.7 mg/dL (8.5-10.1) Test 12/20/18 06:45 12/20/18 09:01 Prothrombin Time > 120.0 SEC (11.7-14.0) Prothromb Time International Ratio > 15.0 (0.8-1.1) Activated Partial Thromboplast Time > 150 SEC (24-38) Glucose (Fingerstick) 193 mg/dL (70-99) Medications Current Medications Sodium Chloride 1,000 ml @ 1,000 mls/hr 1X ONCE IV ; Start 12/19/18 at 14:00; Stop 12/19/18 at 15:01; Status DC Lidocaine HCl (Lidocaine 1% 20ml Vial) 20 ml STK-MED ONCE .ROUTE ; Start 12/19/18 at 14:11; Stop 12/19/18 at 14:12; Status DC Norepinephrine Bitartrate 250 ml @ 1.875 mls/ hr 1X ONCE IV ; Start 12/19/18 at 14:30; Stop 12/19/18 at 14:30; Status DC Sodium Chloride 1,000 ml @ 1,000 mls/hr 1X ONCE IV ; Start 12/19/18 at 14:30; Stop 12/19/18 at 15:29; Status DC Norepinephrine Bitartrate 250 ml @ 0 mls/hr 1X ONCE IV ; Start 12/19/18 at 14:30; Stop 12/19/18 at 14:31; Status DC Ondansetron HCl (Zofran) 4 mg STK-MED ONCE .ROUTE ; Start 12/19/18 at 14:27; Stop 12/19/18 at 14:28; Status DC Meropenem 1 gm/ Sodium Chloride 100 ml @ 200 mls/hr Q8HRS IV ; Start 12/19/18 at 15:00; Stop 12/19/18 at 21:33; Status DC Fentanyl Citrate (Fentanyl 2ml Vial) 100 mcg STK-MED ONCE .ROUTE ; Start 12/19/18 at 14:38; Stop 12/19/18 at 14:39; Status DC Vasopressin 40 unit/Dextrose 102 ml @ 6 mls/hr CONT PRN IV SEE I/O RECORD Last administered on 12/20/18at 06:29; Start 12/19/18 at 17:15 Diphenhydramine HCl (Benadryl) 50 mg STK-MED ONCE .ROUTE ; Start 12/19/18 at 15:00; Stop 12/19/18 at 17:18; Status DC Adenosine (Adenocard) 6 mg STK-MED ONCE IV ; Start 12/19/18 at 15:30; Stop 12/19/18 at 17:20; Status DC Morphine Sulfate (Morphine Sulfate) 2 mg STK-MED ONCE .ROUTE ; Start 12/19/18 at 17:23; Stop 12/19/18 at 17:24; Status DC Morphine Sulfate (Morphine Sulfate) 2 mg PRN Q1HR PRN IV PAIN; Start 12/19/18 at 18:15 Norepinephrine Bitartrate 250 ml @ 1.875 mls/ hr CONT PRN IV SEE I/O RECORD Last administered on 12/19/18at 23:57; Start 12/19/18 at 18:15; Stop 12/20/18 at 04:40; Status DC Morphine Sulfate (Morphine Sulfate) 4 mg PRN Q1HR PRN IV PAIN Last administered on 12/19/18at 21:21; Start 12/19/18 at 18:15 Hydrocortisone Sodium Succinate (Solu-CORTEF) 100 mg Q8HRS IV Last administered on 12/20/18at 06:00; Start 12/19/18 at 22:00 Hydrocortisone Sodium Succinate (Solu-Cortef) 300 mg 1X ONCE IV ; Start 12/19/18 at 17:00; Stop 12/19/18 at 18:08; Status DC Vancomycin HCl 1 gm/Sodium Chloride 250 ml @ 250 mls/hr 1X ONCE IV ; Start 12/19/18 at 17:00; Stop 12/19/18 at 18:08; Status DC Phenylephrine HCl 20 mg/Sodium Chloride 252 ml @ 22.68 mls/ hr CONT PRN IV SEE I/O RECORD Last administered on 12/19/18at 23:57; Start 12/19/18 at 20:00; Stop 12/20/18 at 02:00; Status DC Lidocaine HCl (Xylocaine-Mpf 1% 5ml Vial) 5 ml STK-MED ONCE .ROUTE ; Start 12/19/18 at 19:58; Stop 12/19/18 at 19:59; Status DC Midazolam HCl 100 ml @ 0 mls/hr CONT PRN IV SEE PROTOCOL Last administered on 12/19/18at 20:59; Start 12/19/18 at 20:30 Sodium Bicarbonate 150 meq/Dextrose 1,150 ml @ 75 mls/hr [id number] IV Last administered on 12/20/18at 09:03; Start 12/19/18 at 21:00 Meropenem 500 mg/ Sodium Chloride 50 ml @ 100 mls/hr Q8HRS IV Last administered on 12/20/18at 05:21; Start 12/19/18 at 22:00 Linezolid/Dextrose 300 ml @ 300 mls/hr Q12HR IV Last administered on 12/20/18at 08:46; Start 12/20/18 at 09:00 Linezolid/Dextrose 300 ml @ 300 mls/hr 1X ONCE IV Last administered on 12/19/18at 22:42; Start 12/19/18 at 22:00; Stop 12/19/18 at 22:59; Status DC Iohexol (Omnipaque 240 Mg/ml) 30 ml 1X ONCE PO ; Start 12/20/18 at 00:00; Stop 12/20/18 at 00:01; Status Cancel Info (CONTRAST GIVEN -- Rx MONITORING) 1 each PRN DAILY PRN MC SEE COMMENTS; Start 12/19/18 at 23:45; Stop 12/21/18 at 23:44; Status Cancel Sodium Bicarbonate (Sodium Bicarb Adult 8.4% Syr) 100 meq 1X ONCE IV Last administered on 12/19/18at 23:52; Start 12/20/18 at 00:00; Stop 12/20/18 at 00:01; Status DC Digoxin (Lanoxin) 500 mcg 1X ONCE IV Last administered on 12/20/18at 01:11; Start 12/20/18 at 01:30; Stop 12/20/18 at 01:31; Status DC Phenylephrine HCl 80 mg/Sodium Chloride 258 ml @ 9.67 mls/hr CONT PRN IV SEE I/O RECORD Last administered on 12/20/18at 06:29; Start 12/20/18 at 01:45 Norepinephrine Bitartrate 32 mg/ Sodium Chloride 250 ml @ 0.46 mls/hr CONT PRN IV SEE I/O RECORD Last administered on 12/20/18at 05:21; Start 12/20/18 at 04:45 Sodium Bicarbonate (Sodium Bicarb Adult 8.4% Syr) 50 meq STK-MED ONCE .ROUTE ; Start 12/20/18 at 06:43; Stop 12/20/18 at 06:44; Status DC Epinephrine HCl 4 mg/Sodium Chloride 254 ml @ 31.1 mls/hr CONT PRN IV SEE I/O RECORD Last administered on 12/20/18at 06:56; Start 12/20/18 at 07:00 Sodium Bicarbonate (Sodium Bicarb Adult 8.4% Syr) 150 meq 1X ONCE IV Last administered on 12/20/18at 06:48; Start 12/20/18 at 07:00; Stop 12/20/18 at 07:01; Status DC Calcium Chloride (Calcium Chloride) 1,000 mg 1X ONCE IV Last administered on 12/20/18at 07:20; Start 12/20/18 at 07:00; Stop 12/20/18 at 07:01; Status DC Phytonadione 10 mg/Dextrose 51 ml @ 102 mls/hr 1X ONCE IV Last administered on 12/20/18at 07:11; Start 12/20/18 at 07:30; Stop 12/20/18 at 07:59; Status DC Active Scripts Active Ativan (Lorazepam) 0.5 Mg Tablet 0.5 Mg PO PRN Q6HRS PRN 15 Days Polyethylene Glycol 3350 17 Gm Powd.pack 17 Gm PO PRN DAILY PRN 30 Days Colace (Docusate Sodium) 100 Mg Capsule 100 Mg PO PRN BID PRN 30 Days Culturelle (Lactobacillus Rhamnosus Gg) 1 Each Cap.sprink 1 Cap PO BID 7 Days Hydrocodone-Apap 5-325 (Hydrocodone Bit/Acetaminophen) 1 Tab Tablet 1 Tab PO PRN Q6HRS PRN 6 Days Tylenol (Acetaminophen) 325 Mg Tablet 650 Mg PO PRN Q4HRS PRN 30 Days Catapres (Clonidine Hcl) 0.1 Mg Tablet 0.1 Mg PO PRN Q6HRS PRN 30 Days SBP > 160 or DBP > 90 Proair Hfa (Albuterol Sulfate) 8.5 Gm Hfa.aer.ad 2.5 Mg NEB PRN Q4HRS PRN 30 Days Cozaar (Losartan Potassium) 50 Mg Tablet 100 Mg PO DAILY 30 Days Carafate (Sucralfate) 1 Gm Tablet 1 Gm PO QIDACHS [Pantoprazole] 40 MG Tablet. 40 Mg PO BIDAC Reported Carvedilol (Carvedilol) 3.125 Mg Tablet 3.125 Mg PO BIDWMEALS Xarelto (Rivaroxaban) 20 Mg Tablet 20 Mg PO DAILY Latuda (Lurasidone Hcl) 40 Mg Tablet 40 Mg PO DAILY Vitamin D3 (Cholecalciferol (Vitamin D3)) 50,000 Unit Capsule 50,000 Unit PO WEEKLY Folic Acid 1 Mg Tablet 1 Mg PO DAILY Magnesium Oxide 400 Mg Tablet 250 Mg PO DAILY Vitals/I & O Vital Sign - Last 24 Hours 12/19/18 12/19/18 12/19/18 12/19/18 19:00 19:15 19:25 19:55 Pulse 154 156 Resp 24 24 26 16 B/P (MAP) 80/ Pulse Ox 100 100 100 100 O2 Delivery Room Air Room Air Room Air Room Air 12/19/18 12/19/18 12/19/18 12/19/18 20:00 20:00 20:17 20:42 Temp 98.7 98.7 Pulse 156 Resp 25 Pulse Ox 100 100 O2 Delivery Room Air Room Air Room Air Ventilator 12/19/18 12/19/18 12/19/18 12/19/18 21:00 22:00 23:00 23:00 Pulse 152 154 142 Resp 17 18 20 B/P (MAP) 120/89 (99) 98/84 (89) 92/78 (83) Pulse Ox 97 58 100 O2 Delivery Ventilator Ventilator Ventilator Ventilator 12/19/18 12/20/18 12/20/18 12/20/18 23:59 00:00 00:30 00:47 Temp 98.7 98.7 Pulse 162 156 Resp 26 26 B/P (MAP) 115/94 (101) 90/76 (81) O2 Delivery Mechanical Ventilator Ventilator Ventilator Ventilator 12/20/18 12/20/18 12/20/18 12/20/18 01:00 01:11 01:15 01:30 Pulse 144 146 144 144 Resp 26 26 26 B/P (MAP) 82/68 (73) 83/69 80/68 (72) 84/72 (76) O2 Delivery Ventilator Ventilator Ventilator 12/20/18 12/20/18 12/20/18 12/20/18 01:45 02:00 02:15 02:30 Pulse 142 140 138 135 Resp B/P (MAP) 82/68 (73) 76/62 (67) 72/68 (69) 69/57 (61) O2 Delivery Ventilator Ventilator Ventilator Ventilator 12/20/18 12/20/18 12/20/18 12/20/18 03:00 03:30 03:46 04:00 Pulse 130 126 Resp B/P (MAP) 65/54 (58) 60/50 (53) O2 Delivery Ventilator Ventilator Ventilator Mechanical Ventilator 12/20/18 12/20/18 12/20/18 12/20/18 04:00 04:00 04:30 05:00 Temp 98.6 98.6 Pulse 118 117 114 Resp B/P (MAP) 55/47 (50) 54/46 (49) 52/44 (47) O2 Delivery Ventilator Ventilator Ventilator 12/20/18 12/20/18 12/20/18 12/20/18 05:30 06:00 07:52 08:06 Temp 95.3 95.0 95.3 95.0 Pulse 110 100 127 125 Resp B/P (MAP) 50/42 (45) 31/27 (28) 63/40 70/59 O2 Delivery Ventilator Ventilator 12/20/18 12/20/18 12/20/18 12/20/18 08:11 08:43 08:51 08:54 Temp 95.7 95.8 95.8 95.7 95.8 95.8 Pulse 125 130 130 Resp B/P (MAP) 79/61 92/75 86/75 O2 Delivery Ventilator 12/20/18 09:06 Temp 95.0 95.0 Pulse 129 B/P (MAP) 103/89 Intake and Output 12/19/18 12/19/18 12/20/18 14:59 22:59 06:59 Intake Total 50 ml 2346 ml Output Total 30 ml 29 ml Balance 20 ml 2317 ml LUANN ROSENBAUM MD December 20, 2018 10:09
--- NOTE | 2018-12-20 10:26 | NUR ---
SS following for discharge planning. Pt is from home with spouse and is currently on the vent. Palliative Care consulted. SS will await palliative care consult and will proceed accordingly.
[2018-12-20] MEDS ORDERED: FAMOTIDINE 20 MG/2 ML VIAL IVP SCH (10:30)
[2018-12-20 10:33] LABS: BASO # 0.1 x10^3/uL (0.0-0.2); BASO % 1 % (0-3); EOS # 0.1 x10^3/uL (0.0-0.7); EOS % 1 % (0-3); HEMATOCRIT 29.3 % (36.0-47.0); LYMPH # 3.8 x10^3/uL (1.0-4.8); LYMPH % 36 % (24-48); MEAN CORPUSCULAR HEMOGLOBIN 30 pg (25-35); MEAN CORPUSCULAR HGB CONC 33 g/dL (31-37); MONO # 0.2 x10^3/uL (0.0-1.1); MONO % 2 % (0-9); NEUT # 6.5 x10^3uL (1.8-7.7); NEUT % 61 % (31-73); PLATELET COUNT 144 x10^3/uL (140-400); RED BLOOD COUNT 3.22 x10^6/uL (3.50-5.40); RED CELL DISTRIBUTION WIDTH 17.6 % (11.5-14.5); WHITE BLOOD COUNT 10.7 x10^3/uL (4.0-11.0)
[2018-12-20 10:34] LABS: HEMOGLOBIN 9.5 g/dL (12.0-15.5); MEAN CORPUSCULAR VOLUME 91 fL (79-100)
[2018-12-20 10:43] LABS: PROTHROMBIN TIME PATIENT 85.1 SEC (11.7-14.0)
[2018-12-20 10:47] LABS: ALBUMIN 1.6 g/dL (3.4-5.0); ALBUMIN/GLOBULIN RATIO 0.7 (1.0-1.7); CREATININE 1.8 mg/dL (0.6-1.0); GFR 36.8; TOTAL BILIRUBIN 2.5 mg/dL (0.2-1.0)
--- NOTE | 2018-12-20 10:48 | PDOC2 ---
THIERRY MARTINEZ SAFETY PROFESSIONAL 12/20/18 1048: CARDIAC CONSULT DATE OF CONSULT Date of Consult DATE: 12/20/18 TIME: 10:47 REASON FOR CONSULT Reason for Consult: Tachycardia Hypotension REFERRING PHYSICIAN Referring Physician: Dr. Mcfarland SOURCE Source: Chart review HISTORY OF PRESENT ILLNESS HISTORY OF PRESENT ILLNESS This is a 43 yo female, who was recently discharge from [facility], who presented secondary to weakness, tachycardia, confusion and lethargy. Was hypotensive and tachycardic upon arrival which prompted this consult. Noted with sepsis and coagulopathy. KUB concerning for bowel perforation. Overnight, hgb dropped to 4.6 ad INR increased to > 15. Is hypotensive on multiple pressors. S/p multiple units of blood, FFP, and vit K. HPI obtained from chart review as patient is intubated/sedated. PAST MEDICAL HISTORY Past Medical History Cardiovascular: HTN Pulmonary: Pulmonary embolus (past DVT) CENTRAL NERVOUS SYSTEM: Other (None) GI: Peptic Ulcer disease, GERD, protein malnutrition Heme/Onc: Other (chronic anticoagulation) Hepatobiliary: Cholelithiasis, transaminitis Psych: No pertinent hx Musculoskeletal: Other (morbid obesity) Rheumatologic: No pertinent hx Infectious disease: Other (MRSA) ENT: No pertinent hx Renal/: UTI Endocrine: Diabetes, II Dermatology: No pertinent hx PAST SURGICAL HISTORY Past Surgical History: Cholecystectomy, Tubal Ligation, Other (gastric bypass, IVC filter) FAMILY HISTORY Family History: Coronary Artery Disease SOCIAL HISTORY Social History Smoke: No ALCOHOL: none Drugs: None Lives: with Family CURRENT MEDICATIONS CURRENT MEDICATIONS Current Medications Medications (Trade) Dose Ordered Sig/Alta Route PRN Reason Start Time Stop Time Status Last Admin Dose Admin Vasopressin 40 unit/Dextrose 102 ml @ 6 mls/hr CONT PRN IV SEE I/O RECORD 12/19/18 17:15 12/20/18 06:29 Norepinephrine Bitartrate 250 ml @ 1.875 mls/ hr CONT PRN IV SEE I/O RECORD 12/19/18 18:15 12/20/18 04:40 DC 12/19/18 23:57 Morphine Sulfate (Morphine Sulfate) 4 mg PRN Q1HR PRN IV PAIN 12/19/18 18:15 12/19/18 21:21 Hydrocortisone Sodium Succinate (Solu-CORTEF) 100 mg Q8HRS IV 12/19/18 22:00 12/20/18 06:00 Phenylephrine HCl 20 mg/Sodium Chloride 252 ml @ 22.68 mls/ hr CONT PRN IV SEE I/O RECORD 12/19/18 20:00 12/20/18 02:00 DC 12/19/18 23:57 Midazolam HCl 100 ml @ 0 mls/hr CONT PRN IV SEE PROTOCOL 12/19/18 20:30 12/19/18 20:59 Sodium Bicarbonate 150 meq/Dextrose 1,150 ml @ 75 mls/hr [id number] IV 12/19/18 21:00 12/20/18 09:03 Meropenem 500 mg/ Sodium Chloride 50 ml @ 100 mls/hr Q8HRS IV 12/19/18 22:00 12/20/18 05:21 Linezolid/Dextrose 300 ml @ 300 mls/hr Q12HR IV 12/20/18 09:00 12/20/18 08:46 Linezolid/Dextrose 300 ml @ 300 mls/hr 1X ONCE IV 12/19/18 22:00 12/19/18 22:59 DC 12/19/18 22:42 Sodium Bicarbonate (Sodium Bicarb Adult 8.4% Syr) 100 meq 1X ONCE IV 12/20/18 00:00 12/20/18 00:01 DC 12/19/18 23:52 Digoxin (Lanoxin) 500 mcg 1X ONCE IV 12/20/18 01:30 12/20/18 01:31 DC 12/20/18 01:11 Phenylephrine HCl 80 mg/Sodium Chloride 258 ml @ 9.67 mls/hr CONT PRN IV SEE I/O RECORD 12/20/18 01:45 12/20/18 06:29 Norepinephrine Bitartrate 32 mg/ Sodium Chloride 250 ml @ 0.46 mls/hr CONT PRN IV SEE I/O RECORD 12/20/18 04:45 12/20/18 05:21 Epinephrine HCl 4 mg/Sodium Chloride 254 ml @ 31.1 mls/hr CONT PRN IV SEE I/O RECORD 12/20/18 07:00 12/20/18 06:56 Sodium Bicarbonate (Sodium Bicarb Adult 8.4% Syr) 150 meq 1X ONCE IV 12/20/18 07:00 12/20/18 07:01 DC 12/20/18 06:48 Calcium Chloride (Calcium Chloride) 1,000 mg 1X ONCE IV 12/20/18 07:00 12/20/18 07:01 DC 12/20/18 07:20 Phytonadione 10 mg/Dextrose 51 ml @ 102 mls/hr 1X ONCE IV 12/20/18 07:30 12/20/18 07:59 DC 12/20/18 07:11 Sodium Bicarbonate (Sodium Bicarb Adult 8.4% Syr) 100 meq 1X ONCE IV 12/20/18 09:45 12/20/18 09:46 DC 12/20/18 09:58 ALLERGIES ALLERGIES: Coded Allergies: banana (Verified Allergy, Severe, SWELLING TO MOUTH AND TONGUE, 04/20/18) cephalexin (Verified Allergy, Severe, "SWELLING TO MOUTH", 12/19/18) Tolerates merrem shrimp (Verified Allergy, Severe, SWELLING TO MOUTH AND TONGUE, 04/20/18) fentanyl (Verified Allergy, Intermediate, 07/02/18) I S O L A T I O N *CONTACT* (Verified Allergy, Unknown, 11/10/18) ESBL ROS Review of System unobtainable PHYSICAL EXAM General: Other (sedated) HEENT: Atraumatic Lungs: Other (intubated with mechanical vent) Heart: Other (ST, distant heart tones) Abdomen: Soft Extremities: No edema Skin: No significant lesion Neuro: Other (sedated) Psych/Mental Status: Other (unable to assess) MUSCULOSKELETAL: No deformity VITALS VITALS Vital Signs Date Time Temp Pulse Resp B/P (MAP) Pulse Ox O2 Delivery O2 Flow Rate FiO2 12/20/18 09:37 94.1 130 19 128/104 94.1 12/20/18 08:54 Ventilator 12/19/18 23:00 100 LABS Lab: Laboratory Tests Test 12/19/18 13:50 12/19/18 15:15 12/19/18 17:50 12/19/18 20:15 White Blood Count 7.5 x10^3/uL (4.0-11.0) 5.7 x10^3/uL (4.0-11.0) Red Blood Count 3.10 x10^6/uL (3.50-5.40) 2.55 x10^6/uL (3.50-5.40) Hemoglobin 10.0 g/dL (12.0-15.5) 8.3 g/dL (12.0-15.5) Hematocrit 31.5 % (36.0-47.0) 26.7 % (36.0-47.0) Mean Corpuscular Volume 102 fL (79-100) 105 fL (79-100) Mean Corpuscular Hemoglobin 32 pg (25-35) 32 pg (25-35) Mean Corpuscular Hemoglobin Concent 32 g/dL (31-37) 31 g/dL (31-37) Red Cell Distribution Width 17.6 % (11.5-14.5) 17.3 % (11.5-14.5) Platelet Count 454 x10^3/uL (140-400) 475 x10^3/uL (140-400) Neutrophils (%) (Auto) 63 % (31-73) 78 % (31-73) Lymphocytes (%) (Auto) 30 % (24-48) 15 % (24-48) Monocytes (%) (Auto) 7 % (0-9) 4 % (0-9) Eosinophils (%) (Auto) 0 % (0-3) 1 % (0-3) Basophils (%) (Auto) 1 % (0-3) 0 % (0-3) Neutrophils # (Auto) 4.8 x10^3uL (1.8-7.7) 4.5 x10^3uL (1.8-7.7) Lymphocytes # (Auto) 2.2 x10^3/uL (1.0-4.8) 0.9 x10^3/uL (1.0-4.8) Monocytes # (Auto) 0.5 x10^3/uL (0.0-1.1) 0.3 x10^3/uL (0.0-1.1) Eosinophils # (Auto) 0.0 x10^3/uL (0.0-0.7) 0.1 x10^3/uL (0.0-0.7) Basophils # (Auto) 0.0 x10^3/uL (0.0-0.2) 0.0 x10^3/uL (0.0-0.2) Prothrombin Time 53.3 SEC (11.7-14.0) Prothromb Time International Ratio 5.9 (0.8-1.1) Activated Partial Thromboplast Time 143 SEC (24-38) Sodium Level 137 mmol/L (136-145) 141 mmol/L (136-145) Potassium Level 5.2 mmol/L (3.5-5.1) 5.0 mmol/L (3.5-5.1) Chloride Level 107 mmol/L (98-107) 114 mmol/L (98-107) Carbon Dioxide Level 13 mmol/L (21-32) 9 mmol/L (21-32) Anion Gap 17 (6-14) 18 (6-14) Blood Urea Nitrogen 18 mg/dL (7-20) 16 mg/dL (7-20) Creatinine 1.9 mg/dL (0.6-1.0) 1.5 mg/dL (0.6-1.0) Estimated GFR (Cockcroft-Gault) 34.6 45.4 BUN/Creatinine Ratio 9 (6-20) Glucose Level 157 mg/dL (70-99) 159 mg/dL (70-99) Lactic Acid Level 5.9 mmol/L (0.4-2.0) 5.2 mmol/L (0.4-2.0) Calcium Level 8.4 mg/dL (8.5-10.1) 7.1 mg/dL (8.5-10.1) Magnesium Level 1.8 mg/dL (1.8-2.4) Total Bilirubin 3.8 mg/dL (0.2-1.0) 3.2 mg/dL (0.2-1.0) Aspartate Amino Transf (AST/SGOT) 77 U/L (15-37) 59 U/L (15-37) Alanine Aminotransferase (ALT/SGPT) 58 U/L (14-59) 45 U/L (14-59) Alkaline Phosphatase 98 U/L (46-116) 75 U/L (46-116) Creatine Kinase 201 U/L (26-192) 242 U/L (26-192) Creatine Kinase MB (Mass) 2.9 ng/mL (0.0-3.6) 3.2 ng/mL (0.0-3.6) Creatine Kinase MB Relative Index 1.4 % (0-4) 1.3 % (0-4) Troponin I Quantitative < 0.017 ng/mL (0.000-0.055) 0.047 ng/mL (0.000-0.055) Total Protein 5.4 g/dL (6.4-8.2) 4.1 g/dL (6.4-8.2) Albumin 1.7 g/dL (3.4-5.0) 1.3 g/dL (3.4-5.0) Albumin/Globulin Ratio 0.5 (1.0-1.7) Urine Collection Type Unknown Urine Color Red Urine Clarity Clear Urine pH 5.5 Urine Specific Hudson 1.025 Urine Protein Negative mg/dL (NEG-TRACE) Urine Glucose (UA) Negative mg/dL (NEG) Urine Ketones (Stick) Trace mg/dL (NEG) Urine Blood Negative (NEG) Urine Nitrite Positive (NEG) Urine Bilirubin Large (NEG) Urine Urobilinogen Dipstick 4.0 mg/dL (0.2 mg/dL) Urine Leukocyte Esterase Small (NEG) Urine RBC 0 /HPF (0-2) Urine WBC 5-10 /HPF (0-4) Urine Squamous Epithelial Cells None /LPF Urine Bacteria 0 /HPF (0-FEW) Urine Hyaline Casts Many /HPF Urine Mucus Mod /LPF Direct Bilirubin 2.8 mg/dL (0.0-0.2) Ammonia 129 mcmol/L (11-34) Segmented Neutrophils % 57 % (35-66) Band Neutrophils % 21 % (0-9) Lymphocytes % 10 % (24-48) Monocytes % 5 % (0-10) Metamyelocytes % 7 % (0-0) Nucleated Red Blood Cells 4 Toxic Vacuolation Slight Platelet Estimate Adequate (ADEQUATE) Polychromasia Occasional Anisocytosis Slight Microcytosis Slight Test 12/19/18 20:18 12/19/18 23:28 12/20/18 00:35 12/20/18 05:40 O2 Saturation 94 % (92-99) 97 % (92-99) 98 % (92-99) Arterial Blood pH 7.19 (7.35-7.45) 6.92 (7.35-7.45) 7.10 (7.35-7.45) Arterial Blood pCO2 at Patient Temp 20 mmHg (35-46) 20 mmHg (35-46) 18 mmHg (35-46) Arterial Blood pO2 at Patient Temp 91 mmHg (75-108) 149 mmHg (75-108) 149 mmHg (75-108) Arterial Blood HCO3 8 mmol/L (21-28) 4 mmol/L (21-28) 5 mmol/L (21-28) Arterial Blood Base Excess -19 mmol/L (-3-3) -27 mmol/L (-3-3) -22 mmol/L (-3-3) FiO2 21 30 30 White Blood Count 10.7 x10^3/uL (4.0-11.0) Red Blood Count 1.37 x10^6/uL (3.50-5.40) Hemoglobin 4.6 g/dL (12.0-15.5) Hematocrit 16.4 % (36.0-47.0) Mean Corpuscular Volume 120 fL (79-100) Mean Corpuscular Hemoglobin 33 pg (25-35) Mean Corpuscular Hemoglobin Concent 28 g/dL (31-37) Red Cell Distribution Width 17.8 % (11.5-14.5) Platelet Count 308 x10^3/uL (140-400) Neutrophils (%) (Auto) 64 % (31-73) Lymphocytes (%) (Auto) 32 % (24-48) Monocytes (%) (Auto) 3 % (0-9) Eosinophils (%) (Auto) 2 % (0-3) Basophils (%) (Auto) 0 % (0-3) Neutrophils # (Auto) 6.9 x10^3uL (1.8-7.7) Lymphocytes # (Auto) 3.4 x10^3/uL (1.0-4.8) Monocytes # (Auto) 0.3 x10^3/uL (0.0-1.1) Eosinophils # (Auto) 0.2 x10^3/uL (0.0-0.7) Basophils # (Auto) 0.0 x10^3/uL (0.0-0.2) Sodium Level 141 mmol/L (136-145) Potassium Level 6.2 mmol/L (3.5-5.1) Chloride Level 111 mmol/L (98-107) Carbon Dioxide Level < 5 mmol/L (21-32) Anion Gap (6-14) Blood Urea Nitrogen 17 mg/dL (7-20) Creatinine 2.0 mg/dL (0.6-1.0) Estimated GFR (Cockcroft-Gault) 32.6 Glucose Level 185 mg/dL (70-99) Lactic Acid Level 19.7 mmol/L (0.4-2.0) Calcium Level 6.7 mg/dL (8.5-10.1) Total Bilirubin 2.0 mg/dL (0.2-1.0) Direct Bilirubin 1.7 mg/dL (0.0-0.2) Aspartate Amino Transf (AST/SGOT) 166 U/L (15-37) Alanine Aminotransferase (ALT/SGPT) 42 U/L (14-59) Alkaline Phosphatase 94 U/L (46-116) Total Protein 2.9 g/dL (6.4-8.2) Albumin 0.7 g/dL (3.4-5.0) Test 12/20/18 06:45 12/20/18 09:01 12/20/18 10:20 Prothrombin Time > 120.0 SEC (11.7-14.0) Prothromb Time International Ratio > 15.0 (0.8-1.1) Activated Partial Thromboplast Time > 150 SEC (24-38) Glucose (Fingerstick) 193 mg/dL (70-99) White Blood Count 10.7 x10^3/uL (4.0-11.0) Red Blood Count 3.22 x10^6/uL (3.50-5.40) Hemoglobin 9.5 g/dL (12.0-15.5) Hematocrit 29.3 % (36.0-47.0) Mean Corpuscular Volume 91 fL (79-100) Mean Corpuscular Hemoglobin 30 pg (25-35) Mean Corpuscular Hemoglobin Concent 33 g/dL (31-37) Red Cell Distribution Width 17.6 % (11.5-14.5) Platelet Count 144 x10^3/uL (140-400) Neutrophils (%) (Auto) 61 % (31-73) Lymphocytes (%) (Auto) 36 % (24-48) Monocytes (%) (Auto) 2 % (0-9) Eosinophils (%) (Auto) 1 % (0-3) Basophils (%) (Auto) 1 % (0-3) Neutrophils # (Auto) 6.5 x10^3uL (1.8-7.7) Lymphocytes # (Auto) 3.8 x10^3/uL (1.0-4.8) Monocytes # (Auto) 0.2 x10^3/uL (0.0-1.1) Eosinophils # (Auto) 0.1 x10^3/uL (0.0-0.7) Basophils # (Auto) 0.1 x10^3/uL (0.0-0.2) ECHOCARDIOGRAM ECHOCARDIOGRAM <Conclusion> The left ventricular systolic function is normal and the ejection fraction is within normal range. The Ejection Fraction is >55%. There is normal LV segmental wall motion. The right ventricle is mildly dilated. DATE: 11/07/18 1001 ASSESSMENT/PLAN ASSESSMENT/PLAN 1. Pneumoperitoneum; unstable for surgery. Follow surgical recs 2. Profound anemia, s/p multiple units of PRBCs. Transfuse as warranted 3. Coagulopathy, ? DIC. S/p FFP and vit K 4. Lactic acidosis 5. Septic shock; multiple pressors. 6. Acute respiratory failure; s/p intubation 7. Multisystem failure. Prognosis poor. 8. LEELEE 9. Transaminitis 10. Tachycardia; reactive to above. Recent echo with preserved LV systolic function as noted above. Supportive care from a CV standpoint 11. H/o DVT, PE; s/p IVC filter. on Xarelto at home 12. Diabetes, II BILLIE VO MD 12/20/18 2086: CARDIAC CONSULT ASSESSMENT/PLAN ASSESSMENT/PLAN Patient seen and examined. Agree with COMPACTOR DRIVER's assessment and plan. Sinus tachycardia physiologic and multifactorial No other arrhythmias noted on telemetry Continue current supportive care for multiorgan failure Overall poor prognosis We will follow as needed Thank you for your consultation THIERRY MARTINEZ APRN December 20, 2018 10:48 BILLIE VO MD December 20, 2018 17:06
[2018-12-20 10:49] LABS: POTASSIUM 4.5 mmol/L (3.5-5.1)
--- NOTE | 2018-12-20 10:49 | CONS ---
DATE OF CONSULTATION: 12/19/2018 REQUESTING PHYSICIAN: Emilee Mcfarland M.D. REASON FOR CONSULTATION: Sepsis. HISTORY OF PRESENT ILLNESS: This is a 43-year-old -[place] female with a history of liver problem, who recently has been in the hospital and was discharged, had a multi-resistant UTI and was discharged to [facility]. The patient evidently was discharged from there and took her directly from there to the ER here. The patient has been found to be encephalopathic, lethargic, hypotensive, tachycardic and lactic acid 5.9. Unfortunately, blood cultures were not done and meropenem dose was given. The patient is receiving IV fluids; she is on the third liter of fluids. The patient does speak, simple questions she is able to answer, but she is not to her baseline and lethargic. No nausea, vomiting or diarrhea noted. She does have some abdominal pain; otherwise, just does not feel well. PAST MEDICAL HISTORY: Positive for hypertension, DVT, PE, gastroesophageal reflux disease, uterine ablation, gastric bypass, cholecystectomy and tubal ligation in the past and recent multidrug-resistant UTI. ALLERGIES: EVIDENTLY LISTED ALLERGIC TO KEFLEX. MEDICATIONS: Current medications not available right now, but she did receive a dose of meropenem. REVIEW OF SYSTEMS: As per HPI; all other systems reviewed and are negative, although limited by the patient's ability or inability to provide all the information. PHYSICAL EXAMINATION: GENERAL: Awake female, looks sick and lethargic. VITAL SIGNS: Hypotensive, now on vasopressor support and tachycardic to 150. HEENT EXAMINATION: Both pupils are round and reacting. The patient has scleral icterus. No oral lesions. NECK: Supple. No JVP, no lymphadenopathy. LUNGS: Decreased breath sounds bilaterally. HEART: S1, S2 regular, tachycardic. ABDOMEN: Soft. No distention. No rebound, guarding or organomegaly appreciated. Mild diffuse tenderness present. EXTREMITIES: Have 1-2+ pitting edema present. No cyanosis. There are no skin changes for infection. NEUROLOGIC: The patient does move all the extremities, able to communicate, able to answer simple questions, but she is lethargic and not her normal baseline. LABORATORY DATA: White count is normal. Her BUN is 18, creatinine is 1.8; unable to see the previous for comparison. Albumin is 1.7. ALT is 58, AST is 77 and total bilirubin is 3.8. Lactic acid of 5.9. Actually, her INR is 5.1 without Coumadin. She is supposed to be on Xarelto. IMPRESSION: 1. Lactic acidosis. 2. Hypotension. 3. Tachycardia. All point towards sepsis. Origin of the infection is unclear at this stage, especially since the computers are not working, unable to see much and the urinalysis is pending. Chest x-ray is pending. 4. Liver failure. 5. History of deep venous thrombosis and pulmonary embolism. 6. Encephalopathy. RECOMMENDATIONS: We would use Zyvox and meropenem, supportive care, fluids, ICU admission, repeat lactic acid in 4 hours, vasopressor support and we will continue to follow. Thank you very much, Dr. Mcfarland, for giving me the opportunity to participate in this patient's care. JOSE ALBERTO CARRERA MD DR: FLORIAN/shellie JOB#: [id number] / [id number] AXEL
[2018-12-20 11:22] LABS: PCO2 ABG 20 mmHg (35-46)
--- NOTE | 2018-12-20 11:40 | PDOC2 ---
CONSULT Date of Consult Date of Consult DATE: 12/20/18 TIME: 11:22 Reason for Consult Reason for Consult: LEELEE Source Source: Chart review History of Present Illness Reason for Visit: Pt is a 43-year-old -Stateless female with a history of liver problem, who was dced recently to [facility]. She had multiresistant UTI She evidently was discharged from there and took her directly from there to the ER here. The patient has been found to be encephalopathic, lethargic, hypotensive, tachycardic and lactic acid 5.9. Admitted to ICU with dx of sepsis. Plain films show free air. Bowel perforation - too unstable for CT, free air noted on KUB She is s/p l/s Dorcas-en-Y gastric bypass and hx of marginal ulcer which had resolved per recent EGD. The patient is receiving IV fluids; IV NaHCo3.Currently she is on 4 Pressors, severe metabolic acidosis PAST MEDICAL HISTORY: Positive for hypertension, DVT, PE, gastroesophageal reflux disease, uterine ablation, gastric bypass, cholecystectomy and tubal ligation in the past and recent multidrug-resistant UTI. Past Medical History Cardiovascular: HTN Pulmonary: Pulmonary embolus CENTRAL NERVOUS SYSTEM: Other GI: Peptic Ulcer disease Heme/Onc: Other Hepatobiliary: Cholelithiasis Psych: No pertinent hx Musculoskeletal: Other Rheumatologic: No pertinent hx Infectious disease: Other Renal/: No pertinent hx Past Surgical History Past Surgical History: Cholecystectomy, Tubal Ligation, Other (gastric bypass) Family History Family History: Coronary Artery Disease Social History Social History: Parent No ALCOHOL: none Drugs: None Lives: with Family Current Medications Current Medications Current Medications Sodium Chloride 1,000 ml @ 1,000 mls/hr 1X ONCE IV ; Start 12/19/18 at 14:00; Stop 12/19/18 at 15:01; Status DC Lidocaine HCl (Lidocaine 1% 20ml Vial) 20 ml STK-MED ONCE .ROUTE ; Start 12/19/18 at 14:11; Stop 12/19/18 at 14:12; Status DC Norepinephrine Bitartrate 250 ml @ 1.875 mls/ hr 1X ONCE IV ; Start 12/19/18 at 14:30; Stop 12/19/18 at 14:30; Status DC Sodium Chloride 1,000 ml @ 1,000 mls/hr 1X ONCE IV ; Start 12/19/18 at 14:30; Stop 12/19/18 at 15:29; Status DC Norepinephrine Bitartrate 250 ml @ 0 mls/hr 1X ONCE IV ; Start 12/19/18 at 14:30; Stop 12/19/18 at 14:31; Status DC Ondansetron HCl (Zofran) 4 mg STK-MED ONCE .ROUTE ; Start 12/19/18 at 14:27; Stop 12/19/18 at 14:28; Status DC Meropenem 1 gm/ Sodium Chloride 100 ml @ 200 mls/hr Q8HRS IV ; Start 12/19/18 at 15:00; Stop 12/19/18 at 21:33; Status DC Fentanyl Citrate (Fentanyl 2ml Vial) 100 mcg STK-MED ONCE .ROUTE ; Start 12/19/18 at 14:38; Stop 12/19/18 at 14:39; Status DC Vasopressin 40 unit/Dextrose 102 ml @ 6 mls/hr CONT PRN IV SEE I/O RECORD Last administered on 12/20/18at 06:29; Start 12/19/18 at 17:15 Diphenhydramine HCl (Benadryl) 50 mg STK-MED ONCE .ROUTE ; Start 12/19/18 at 15:00; Stop 12/19/18 at 17:18; Status DC Adenosine (Adenocard) 6 mg STK-MED ONCE IV ; Start 12/19/18 at 15:30; Stop 12/19/18 at 17:20; Status DC Morphine Sulfate (Morphine Sulfate) 2 mg STK-MED ONCE .ROUTE ; Start 12/19/18 at 17:23; Stop 12/19/18 at 17:24; Status DC Morphine Sulfate (Morphine Sulfate) 2 mg PRN Q1HR PRN IV PAIN; Start 12/19/18 at 18:15 Norepinephrine Bitartrate 250 ml @ 1.875 mls/ hr CONT PRN IV SEE I/O RECORD Last administered on 12/19/18at 23:57; Start 12/19/18 at 18:15; Stop 12/20/18 at 04:40; Status DC Morphine Sulfate (Morphine Sulfate) 4 mg PRN Q1HR PRN IV PAIN Last administered on 12/19/18at 21:21; Start 12/19/18 at 18:15 Hydrocortisone Sodium Succinate (Solu-CORTEF) 100 mg Q8HRS IV Last administered on 12/20/18at 06:00; Start 12/19/18 at 22:00 Hydrocortisone Sodium Succinate (Solu-Cortef) 300 mg 1X ONCE IV ; Start 12/19/18 at 17:00; Stop 12/19/18 at 18:08; Status DC Vancomycin HCl 1 gm/Sodium Chloride 250 ml @ 250 mls/hr 1X ONCE IV ; Start 12/19/18 at 17:00; Stop 12/19/18 at 18:08; Status DC Phenylephrine HCl 20 mg/Sodium Chloride 252 ml @ 22.68 mls/ hr CONT PRN IV SEE I/O RECORD Last administered on 12/19/18at 23:57; Start 12/19/18 at 20:00; Stop 12/20/18 at 02:00; Status DC Lidocaine HCl (Xylocaine-Mpf 1% 5ml Vial) 5 ml STK-MED ONCE .ROUTE ; Start 12/19/18 at 19:58; Stop 12/19/18 at 19:59; Status DC Midazolam HCl 100 ml @ 0 mls/hr CONT PRN IV SEE PROTOCOL Last administered on 12/19/18at 20:59; Start 12/19/18 at 20:30 Sodium Bicarbonate 150 meq/Dextrose 1,150 ml @ 75 mls/hr [id number] IV Last administered on 12/20/18at 09:03; Start 12/19/18 at 21:00 Meropenem 500 mg/ Sodium Chloride 50 ml @ 100 mls/hr Q8HRS IV Last administered on 12/20/18at 05:21; Start 12/19/18 at 22:00 Linezolid/Dextrose 300 ml @ 300 mls/hr Q12HR IV Last administered on 12/20/18at 08:46; Start 12/20/18 at 09:00 Linezolid/Dextrose 300 ml @ 300 mls/hr 1X ONCE IV Last administered on 12/19/18at 22:42; Start 12/19/18 at 22:00; Stop 12/19/18 at 22:59; Status DC Iohexol (Omnipaque 240 Mg/ml) 30 ml 1X ONCE PO ; Start 12/20/18 at 00:00; Stop 12/20/18 at 00:01; Status Cancel Info (CONTRAST GIVEN -- Rx MONITORING) 1 each PRN DAILY PRN MC SEE COMMENTS; Start 12/19/18 at 23:45; Stop 12/21/18 at 23:44; Status Cancel Sodium Bicarbonate (Sodium Bicarb Adult 8.4% Syr) 100 meq 1X ONCE IV Last administered on 12/19/18at 23:52; Start 12/20/18 at 00:00; Stop 12/20/18 at 00:01; Status DC Digoxin (Lanoxin) 500 mcg 1X ONCE IV Last administered on 12/20/18at 01:11; Start 12/20/18 at 01:30; Stop 12/20/18 at 01:31; Status DC Phenylephrine HCl 80 mg/Sodium Chloride 258 ml @ 9.67 mls/hr CONT PRN IV SEE I/O RECORD Last administered on 12/20/18at 11:14; Start 12/20/18 at 01:45 Norepinephrine Bitartrate 32 mg/ Sodium Chloride 250 ml @ 0.46 mls/hr CONT PRN IV SEE I/O RECORD Last administered on 12/20/18at 05:21; Start 12/20/18 at 04:45 Sodium Bicarbonate (Sodium Bicarb Adult 8.4% Syr) 50 meq STK-MED ONCE .ROUTE ; Start 12/20/18 at 06:43; Stop 12/20/18 at 06:44; Status DC Epinephrine HCl 4 mg/Sodium Chloride 254 ml @ 31.1 mls/hr CONT PRN IV SEE I/O RECORD Last administered on 12/20/18at 06:56; Start 12/20/18 at 07:00 Sodium Bicarbonate (Sodium Bicarb Adult 8.4% Syr) 150 meq 1X ONCE IV Last administered on 12/20/18at 06:48; Start 12/20/18 at 07:00; Stop 12/20/18 at 07:01; Status DC Calcium Chloride (Calcium Chloride) 1,000 mg 1X ONCE IV Last administered on 12/20/18at 07:20; Start 12/20/18 at 07:00; Stop 12/20/18 at 07:01; Status DC Phytonadione 10 mg/Dextrose 51 ml @ 102 mls/hr 1X ONCE IV Last administered on 12/20/18at 07:11; Start 12/20/18 at 07:30; Stop 12/20/18 at 07:59; Status DC Sodium Bicarbonate (Sodium Bicarb Adult 8.4% Syr) 100 meq 1X ONCE IV Last administered on 12/20/18at 09:58; Start 12/20/18 at 09:45; Stop 12/20/18 at 09:46; Status DC Famotidine (Pepcid Vial) 20 mg DAILY IVP ; Start 12/20/18 at 10:30 Active Scripts Active Ativan (Lorazepam) 0.5 Mg Tablet 0.5 Mg PO PRN Q6HRS PRN 15 Days Polyethylene Glycol 3350 17 Gm Powd.pack 17 Gm PO PRN DAILY PRN 30 Days Colace (Docusate Sodium) 100 Mg Capsule 100 Mg PO PRN BID PRN 30 Days Culturelle (Lactobacillus Rhamnosus Gg) 1 Each Cap.sprink 1 Cap PO BID 7 Days Hydrocodone-Apap 5-325 (Hydrocodone Bit/Acetaminophen) 1 Tab Tablet 1 Tab PO PRN Q6HRS PRN 6 Days Tylenol (Acetaminophen) 325 Mg Tablet 650 Mg PO PRN Q4HRS PRN 30 Days Catapres (Clonidine Hcl) 0.1 Mg Tablet 0.1 Mg PO PRN Q6HRS PRN 30 Days SBP > 160 or DBP > 90 Proair Hfa (Albuterol Sulfate) 8.5 Gm Hfa.aer.ad 2.5 Mg NEB PRN Q4HRS PRN 30 Days Cozaar (Losartan Potassium) 50 Mg Tablet 100 Mg PO DAILY 30 Days Carafate (Sucralfate) 1 Gm Tablet 1 Gm PO QIDACHS [Pantoprazole] 40 MG Tablet.dr 40 Mg PO BIDAC Reported Carvedilol (Carvedilol) 3.125 Mg Tablet 3.125 Mg PO BIDWMEALS Xarelto (Rivaroxaban) 20 Mg Tablet 20 Mg PO DAILY Latuda (Lurasidone Hcl) 40 Mg Tablet 40 Mg PO DAILY Vitamin D3 (Cholecalciferol (Vitamin D3)) 50,000 Unit Capsule 50,000 Unit PO WEEKLY Folic Acid 1 Mg Tablet 1 Mg PO DAILY Magnesium Oxide 400 Mg Tablet 250 Mg PO DAILY Allergies Allergies: Coded Allergies: banana (Verified Allergy, Severe, SWELLING TO MOUTH AND TONGUE, 04/20/18) cephalexin (Verified Allergy, Severe, "SWELLING TO MOUTH", 12/19/18) Tolerates merrem shrimp (Verified Allergy, Severe, SWELLING TO MOUTH AND TONGUE, 04/20/18) fentanyl (Verified Allergy, Intermediate, 07/02/18) I S O L A T I O N *CONTACT* (Verified Allergy, Unknown, 11/10/18) ESBL ROS Review of System Unable to Obtain Physical Exam Vital Signs Vital Signs Date Time Temp Pulse Resp B/P (MAP) Pulse Ox O2 Delivery O2 Flow Rate FiO2 12/20/18 09:37 94.1 130 19 128/104 94.1 12/20/18 08:54 Ventilator 12/19/18 23:00 100 Assessment & Plan LEELEE - due to Sepsis/Bowel perf Non Oliguric, Stable renal function. On multiple pressors Septic Shock - Lactate up to 19.7 On Multiple pressors Bowel perforation - too unstable for CT, free air noted on KUB GS following Hyperkalemia-labs repeated K normal now Severe Metabolic acidosis- sec to Bowel Perf On IV NaHco3 May not tolerate CRRT - unstable and currently on 4 pressors Anemia - Hb dropped from 10-->8.30-->4.6. s/p 4u PRBC Having rectal bleeding Coagulopathy - hx of PE - s/p FFP Transaminitis due to septic shock UTI-multiresistant - recently Hospitalized, dced to [facility] History of pulmonary embolism -last year History of IVC filter placement linear filling defects in the bilateral pulmonary arteries which could be secondary to old recanalized embolus. History of dorcas en Y bypass with ulcer in the past, status post EGD with healed ulcer - history of non adherence to PPI and carafate for ulcer treatment Obesity with BMI of 34 Discussed with RN , No family at bedside Labs Labs Laboratory Tests Test 12/19/18 13:50 12/19/18 15:15 12/19/18 17:50 12/19/18 20:15 White Blood Count 7.5 x10^3/uL (4.0-11.0) 5.7 x10^3/uL (4.0-11.0) Red Blood Count 3.10 x10^6/uL (3.50-5.40) 2.55 x10^6/uL (3.50-5.40) Hemoglobin 10.0 g/dL (12.0-15.5) 8.3 g/dL (12.0-15.5) Hematocrit 31.5 % (36.0-47.0) 26.7 % (36.0-47.0) Mean Corpuscular Volume 102 fL (79-100) 105 fL (79-100) Mean Corpuscular Hemoglobin 32 pg (25-35) 32 pg (25-35) Mean Corpuscular Hemoglobin Concent 32 g/dL (31-37) 31 g/dL (31-37) Red Cell Distribution Width 17.6 % (11.5-14.5) 17.3 % (11.5-14.5) Platelet Count 454 x10^3/uL (140-400) 475 x10^3/uL (140-400) Neutrophils (%) (Auto) 63 % (31-73) 78 % (31-73) Lymphocytes (%) (Auto) 30 % (24-48) 15 % (24-48) Monocytes (%) (Auto) 7 % (0-9) 4 % (0-9) Eosinophils (%) (Auto) 0 % (0-3) 1 % (0-3) Basophils (%) (Auto) 1 % (0-3) 0 % (0-3) Neutrophils # (Auto) 4.8 x10^3uL (1.8-7.7) 4.5 x10^3uL (1.8-7.7) Lymphocytes # (Auto) 2.2 x10^3/uL (1.0-4.8) 0.9 x10^3/uL (1.0-4.8) Monocytes # (Auto) 0.5 x10^3/uL (0.0-1.1) 0.3 x10^3/uL (0.0-1.1) Eosinophils # (Auto) 0.0 x10^3/uL (0.0-0.7) 0.1 x10^3/uL (0.0-0.7) Basophils # (Auto) 0.0 x10^3/uL (0.0-0.2) 0.0 x10^3/uL (0.0-0.2) Prothrombin Time 53.3 SEC (11.7-14.0) Prothromb Time International Ratio 5.9 (0.8-1.1) Activated Partial Thromboplast Time 143 SEC (24-38) Sodium Level 137 mmol/L (136-145) 141 mmol/L (136-145) Potassium Level 5.2 mmol/L (3.5-5.1) 5.0 mmol/L (3.5-5.1) Chloride Level 107 mmol/L (98-107) 114 mmol/L (98-107) Carbon Dioxide Level 13 mmol/L (21-32) 9 mmol/L (21-32) Anion Gap 17 (6-14) 18 (6-14) Blood Urea Nitrogen 18 mg/dL (7-20) 16 mg/dL (7-20) Creatinine 1.9 mg/dL (0.6-1.0) 1.5 mg/dL (0.6-1.0) Estimated GFR (Cockcroft-Gault) 34.6 45.4 BUN/Creatinine Ratio 9 (6-20) Glucose Level 157 mg/dL (70-99) 159 mg/dL (70-99) Lactic Acid Level 5.9 mmol/L (0.4-2.0) 5.2 mmol/L (0.4-2.0) Calcium Level 8.4 mg/dL (8.5-10.1) 7.1 mg/dL (8.5-10.1) Magnesium Level 1.8 mg/dL (1.8-2.4) Total Bilirubin 3.8 mg/dL (0.2-1.0) 3.2 mg/dL (0.2-1.0) Aspartate Amino Transf (AST/SGOT) 77 U/L (15-37) 59 U/L (15-37) Alanine Aminotransferase (ALT/SGPT) 58 U/L (14-59) 45 U/L (14-59) Alkaline Phosphatase 98 U/L (46-116) 75 U/L (46-116) Creatine Kinase 201 U/L (26-192) 242 U/L (26-192) Creatine Kinase MB (Mass) 2.9 ng/mL (0.0-3.6) 3.2 ng/mL (0.0-3.6) Creatine Kinase MB Relative Index 1.4 % (0-4) 1.3 % (0-4) Troponin I Quantitative < 0.017 ng/mL (0.000-0.055) 0.047 ng/mL (0.000-0.055) Total Protein 5.4 g/dL (6.4-8.2) 4.1 g/dL (6.4-8.2) Albumin 1.7 g/dL (3.4-5.0) 1.3 g/dL (3.4-5.0) Albumin/Globulin Ratio 0.5 (1.0-1.7) Urine Collection Type Unknown Urine Color Red Urine Clarity Clear Urine pH 5.5 Urine Specific [place] 1.025 Urine Protein Negative mg/dL (NEG-TRACE) Urine Glucose (UA) Negative mg/dL (NEG) Urine Ketones (Stick) Trace mg/dL (NEG) Urine Blood Negative (NEG) Urine Nitrite Positive (NEG) Urine Bilirubin Large (NEG) Urine Urobilinogen Dipstick 4.0 mg/dL (0.2 mg/dL) Urine Leukocyte Esterase Small (NEG) Urine RBC 0 /HPF (0-2) Urine WBC 5-10 /HPF (0-4) Urine Squamous Epithelial Cells None /LPF Urine Bacteria 0 /HPF (0-FEW) Urine Hyaline Casts Many /HPF Urine Mucus Mod /LPF Direct Bilirubin 2.8 mg/dL (0.0-0.2) Ammonia 129 mcmol/L (11-34) Segmented Neutrophils % 57 % (35-66) Band Neutrophils % 21 % (0-9) Lymphocytes % 10 % (24-48) Monocytes % 5 % (0-10) Metamyelocytes % 7 % (0-0) Nucleated Red Blood Cells 4 Toxic Vacuolation Slight Platelet Estimate Adequate (ADEQUATE) Polychromasia Occasional Anisocytosis Slight Microcytosis Slight Test 12/19/18 20:18 12/19/18 23:28 12/20/18 00:35 12/20/18 05:40 O2 Saturation 94 % (92-99) 97 % (92-99) 98 % (92-99) Arterial Blood pH 7.19 (7.35-7.45) 6.92 (7.35-7.45) 7.10 (7.35-7.45) Arterial Blood pCO2 at Patient Temp 20 mmHg (35-46) 20 mmHg (35-46) 18 mmHg (35-46) Arterial Blood pO2 at Patient Temp 91 mmHg (75-108) 149 mmHg (75-108) 149 mmHg (75-108) Arterial Blood HCO3 8 mmol/L (21-28) 4 mmol/L (21-28) 5 mmol/L (21-28) Arterial Blood Base Excess -19 mmol/L (-3-3) -27 mmol/L (-3-3) -22 mmol/L (-3-3) FiO2 21 30 30 White Blood Count 10.7 x10^3/uL (4.0-11.0) Red Blood Count 1.37 x10^6/uL (3.50-5.40) Hemoglobin 4.6 g/dL (12.0-15.5) Hematocrit 16.4 % (36.0-47.0) Mean Corpuscular Volume 120 fL (79-100) Mean Corpuscular Hemoglobin 33 pg (25-35) Mean Corpuscular Hemoglobin Concent 28 g/dL (31-37) Red Cell Distribution Width 17.8 % (11.5-14.5) Platelet Count 308 x10^3/uL (140-400) Neutrophils (%) (Auto) 64 % (31-73) Lymphocytes (%) (Auto) 32 % (24-48) Monocytes (%) (Auto) 3 % (0-9) Eosinophils (%) (Auto) 2 % (0-3) Basophils (%) (Auto) 0 % (0-3) Neutrophils # (Auto) 6.9 x10^3uL (1.8-7.7) Lymphocytes # (Auto) 3.4 x10^3/uL (1.0-4.8) Monocytes # (Auto) 0.3 x10^3/uL (0.0-1.1) Eosinophils # (Auto) 0.2 x10^3/uL (0.0-0.7) Basophils # (Auto) 0.0 x10^3/uL (0.0-0.2) Sodium Level 141 mmol/L (136-145) Potassium Level 6.2 mmol/L (3.5-5.1) Chloride Level 111 mmol/L (98-107) Carbon Dioxide Level < 5 mmol/L (21-32) Anion Gap (6-14) Blood Urea Nitrogen 17 mg/dL (7-20) Creatinine 2.0 mg/dL (0.6-1.0) Estimated GFR (Cockcroft-Gault) 32.6 Glucose Level 185 mg/dL (70-99) Lactic Acid Level 19.7 mmol/L (0.4-2.0) Calcium Level 6.7 mg/dL (8.5-10.1) Total Bilirubin 2.0 mg/dL (0.2-1.0) Direct Bilirubin 1.7 mg/dL (0.0-0.2) Aspartate Amino Transf (AST/SGOT) 166 U/L (15-37) Alanine Aminotransferase (ALT/SGPT) 42 U/L (14-59) Alkaline Phosphatase 94 U/L (46-116) Total Protein 2.9 g/dL (6.4-8.2) Albumin 0.7 g/dL (3.4-5.0) Test 12/20/18 06:45 12/20/18 09:01 12/20/18 10:20 Prothrombin Time > 120.0 SEC (11.7-14.0) 85.1 SEC (11.7-14.0) Prothromb Time International Ratio > 15.0 (0.8-1.1) 10.6 (0.8-1.1) Activated Partial Thromboplast Time > 150 SEC (24-38) Glucose (Fingerstick) 193 mg/dL (70-99) White Blood Count 10.7 x10^3/uL (4.0-11.0) Red Blood Count 3.22 x10^6/uL (3.50-5.40) Hemoglobin 9.5 g/dL (12.0-15.5) Hematocrit 29.3 % (36.0-47.0) Mean Corpuscular Volume 91 fL (79-100) Mean Corpuscular Hemoglobin 30 pg (25-35) Mean Corpuscular Hemoglobin Concent 33 g/dL (31-37) Red Cell Distribution Width 17.6 % (11.5-14.5) Platelet Count 144 x10^3/uL (140-400) Neutrophils (%) (Auto) 61 % (31-73) Lymphocytes (%) (Auto) 36 % (24-48) Monocytes (%) (Auto) 2 % (0-9) Eosinophils (%) (Auto) 1 % (0-3) Basophils (%) (Auto) 1 % (0-3) Neutrophils # (Auto) 6.5 x10^3uL (1.8-7.7) Lymphocytes # (Auto) 3.8 x10^3/uL (1.0-4.8) Monocytes # (Auto) 0.2 x10^3/uL (0.0-1.1) Eosinophils # (Auto) 0.1 x10^3/uL (0.0-0.7) Basophils # (Auto) 0.1 x10^3/uL (0.0-0.2) Fibrinogen 208 mg/dL (200-440) Sodium Level 149 mmol/L (136-145) Potassium Level 4.5 mmol/L (3.5-5.1) Chloride Level 110 mmol/L (98-107) Carbon Dioxide Level 10 mmol/L (21-32) Anion Gap 29 (6-14) Blood Urea Nitrogen 16 mg/dL (7-20) Creatinine 1.8 mg/dL (0.6-1.0) Estimated GFR (Cockcroft-Gault) 36.8 BUN/Creatinine Ratio 9 (6-20) Glucose Level 227 mg/dL (70-99) Calcium Level 7.0 mg/dL (8.5-10.1) Total Bilirubin 2.5 mg/dL (0.2-1.0) Aspartate Amino Transf (AST/SGOT) 466 U/L (15-37) Alanine Aminotransferase (ALT/SGPT) 79 U/L (14-59) Alkaline Phosphatase 93 U/L (46-116) Total Protein 4.0 g/dL (6.4-8.2) Albumin 1.6 g/dL (3.4-5.0) Albumin/Globulin Ratio 0.7 (1.0-1.7) Laboratory Tests Test 12/19/18 13:50 12/19/18 15:15 12/19/18 17:50 12/19/18 20:15 White Blood Count 7.5 x10^3/uL (4.0-11.0) 5.7 x10^3/uL (4.0-11.0) Red Blood Count 3.10 x10^6/uL (3.50-5.40) 2.55 x10^6/uL (3.50-5.40) Hemoglobin 10.0 g/dL (12.0-15.5) 8.3 g/dL (12.0-15.5) Hematocrit 31.5 % (36.0-47.0) 26.7 % (36.0-47.0) Mean Corpuscular Volume 102 fL (79-100) 105 fL (79-100) Mean Corpuscular Hemoglobin 32 pg (25-35) 32 pg (25-35) Mean Corpuscular Hemoglobin Concent 32 g/dL (31-37) 31 g/dL (31-37) Red Cell Distribution Width 17.6 % (11.5-14.5) 17.3 % (11.5-14.5) Platelet Count 454 x10^3/uL (140-400) 475 x10^3/uL (140-400) Neutrophils (%) (Auto) 63 % (31-73) 78 % (31-73) Lymphocytes (%) (Auto) 30 % (24-48) 15 % (24-48) Monocytes (%) (Auto) 7 % (0-9) 4 % (0-9) Eosinophils (%) (Auto) 0 % (0-3) 1 % (0-3) Basophils (%) (Auto) 1 % (0-3) 0 % (0-3) Neutrophils # (Auto) 4.8 x10^3uL (1.8-7.7) 4.5 x10^3uL (1.8-7.7) Lymphocytes # (Auto) 2.2 x10^3/uL (1.0-4.8) 0.9 x10^3/uL (1.0-4.8) Monocytes # (Auto) 0.5 x10^3/uL (0.0-1.1) 0.3 x10^3/uL (0.0-1.1) Eosinophils # (Auto) 0.0 x10^3/uL (0.0-0.7) 0.1 x10^3/uL (0.0-0.7) Basophils # (Auto) 0.0 x10^3/uL (0.0-0.2) 0.0 x10^3/uL (0.0-0.2) Prothrombin Time 53.3 SEC (11.7-14.0) Prothromb Time International Ratio 5.9 (0.8-1.1) Activated Partial Thromboplast Time 143 SEC (24-38) Sodium Level 137 mmol/L (136-145) 141 mmol/L (136-145) Potassium Level 5.2 mmol/L (3.5-5.1) 5.0 mmol/L (3.5-5.1) Chloride Level 107 mmol/L (98-107) 114 mmol/L (98-107) Carbon Dioxide Level 13 mmol/L (21-32) 9 mmol/L (21-32) Anion Gap 17 (6-14) 18 (6-14) Blood Urea Nitrogen 18 mg/dL (7-20) 16 mg/dL (7-20) Creatinine 1.9 mg/dL (0.6-1.0) 1.5 mg/dL (0.6-1.0) Estimated GFR (Cockcroft-Gault) 34.6 45.4 BUN/Creatinine Ratio 9 (6-20) Glucose Level 157 mg/dL (70-99) 159 mg/dL (70-99) Lactic Acid Level 5.9 mmol/L (0.4-2.0) 5.2 mmol/L (0.4-2.0) Calcium Level 8.4 mg/dL (8.5-10.1) 7.1 mg/dL (8.5-10.1) Magnesium Level 1.8 mg/dL (1.8-2.4) Total Bilirubin 3.8 mg/dL (0.2-1.0) 3.2 mg/dL (0.2-1.0) Aspartate Amino Transf (AST/SGOT) 77 U/L (15-37) 59 U/L (15-37) Alanine Aminotransferase (ALT/SGPT) 58 U/L (14-59) 45 U/L (14-59) Alkaline Phosphatase 98 U/L (46-116) 75 U/L (46-116) Creatine Kinase 201 U/L (26-192) 242 U/L (26-192) Creatine Kinase MB (Mass) 2.9 ng/mL (0.0-3.6) 3.2 ng/mL (0.0-3.6) Creatine Kinase MB Relative Index 1.4 % (0-4) 1.3 % (0-4) Troponin I Quantitative < 0.017 ng/mL (0.000-0.055) 0.047 ng/mL (0.000-0.055) Total Protein 5.4 g/dL (6.4-8.2) 4.1 g/dL (6.4-8.2) Albumin 1.7 g/dL (3.4-5.0) 1.3 g/dL (3.4-5.0) Albumin/Globulin Ratio 0.5 (1.0-1.7) Urine Collection Type Unknown Urine Color Red Urine Clarity Clear Urine pH 5.5 Urine Specific [place] 1.025 Urine Protein Negative mg/dL (NEG-TRACE) Urine Glucose (UA) Negative mg/dL (NEG) Urine Ketones (Stick) Trace mg/dL (NEG) Urine Blood Negative (NEG) Urine Nitrite Positive (NEG) Urine Bilirubin Large (NEG) Urine Urobilinogen Dipstick 4.0 mg/dL (0.2 mg/dL) Urine Leukocyte Esterase Small (NEG) Urine RBC 0 /HPF (0-2) Urine WBC 5-10 /HPF (0-4) Urine Squamous Epithelial Cells None /LPF Urine Bacteria 0 /HPF (0-FEW) Urine Hyaline Casts Many /HPF Urine Mucus Mod /LPF Direct Bilirubin 2.8 mg/dL (0.0-0.2) Ammonia 129 mcmol/L (11-34) Segmented Neutrophils % 57 % (35-66) Band Neutrophils % 21 % (0-9) Lymphocytes % 10 % (24-48) Monocytes % 5 % (0-10) Metamyelocytes % 7 % (0-0) Nucleated Red Blood Cells 4 Toxic Vacuolation Slight Platelet Estimate Adequate (ADEQUATE) Polychromasia Occasional Anisocytosis Slight Microcytosis Slight Test 12/19/18 20:18 12/19/18 23:28 12/20/18 00:35 12/20/18 05:40 O2 Saturation 94 % (92-99) 97 % (92-99) 98 % (92-99) Arterial Blood pH 7.19 (7.35-7.45) 6.92 (7.35-7.45) 7.10 (7.35-7.45) Arterial Blood pCO2 at Patient Temp 20 mmHg (35-46) 20 mmHg (35-46) 18 mmHg (35-46) Arterial Blood pO2 at Patient Temp 91 mmHg (75-108) 149 mmHg (75-108) 149 mmHg (75-108) Arterial Blood HCO3 8 mmol/L (21-28) 4 mmol/L (21-28) 5 mmol/L (21-28) Arterial Blood Base Excess -19 mmol/L (-3-3) -27 mmol/L (-3-3) -22 mmol/L (-3-3) FiO2 21 30 30 White Blood Count 10.7 x10^3/uL (4.0-11.0) Red Blood Count 1.37 x10^6/uL (3.50-5.40) Hemoglobin 4.6 g/dL (12.0-15.5) Hematocrit 16.4 % (36.0-47.0) Mean Corpuscular Volume 120 fL (79-100) Mean Corpuscular Hemoglobin 33 pg (25-35) Mean Corpuscular Hemoglobin Concent 28 g/dL (31-37) Red Cell Distribution Width 17.8 % (11.5-14.5) Platelet Count 308 x10^3/uL (140-400) Neutrophils (%) (Auto) 64 % (31-73) Lymphocytes (%) (Auto) 32 % (24-48) Monocytes (%) (Auto) 3 % (0-9) Eosinophils (%) (Auto) 2 % (0-3) Basophils (%) (Auto) 0 % (0-3) Neutrophils # (Auto) 6.9 x10^3uL (1.8-7.7) Lymphocytes # (Auto) 3.4 x10^3/uL (1.0-4.8) Monocytes # (Auto) 0.3 x10^3/uL (0.0-1.1) Eosinophils # (Auto) 0.2 x10^3/uL (0.0-0.7) Basophils # (Auto) 0.0 x10^3/uL (0.0-0.2) Sodium Level 141 mmol/L (136-145) Potassium Level 6.2 mmol/L (3.5-5.1) Chloride Level 111 mmol/L (98-107) Carbon Dioxide Level < 5 mmol/L (21-32) Anion Gap (6-14) Blood Urea Nitrogen 17 mg/dL (7-20) Creatinine 2.0 mg/dL (0.6-1.0) Estimated GFR (Cockcroft-Gault) 32.6 Glucose Level 185 mg/dL (70-99) Lactic Acid Level 19.7 mmol/L (0.4-2.0) Calcium Level 6.7 mg/dL (8.5-10.1) Total Bilirubin 2.0 mg/dL (0.2-1.0) Direct Bilirubin 1.7 mg/dL (0.0-0.2) Aspartate Amino Transf (AST/SGOT) 166 U/L (15-37) Alanine Aminotransferase (ALT/SGPT) 42 U/L (14-59) Alkaline Phosphatase 94 U/L (46-116) Total Protein 2.9 g/dL (6.4-8.2) Albumin 0.7 g/dL (3.4-5.0) Test 12/20/18 06:45 12/20/18 09:01 12/20/18 10:20 Prothrombin Time > 120.0 SEC (11.7-14.0) 85.1 SEC (11.7-14.0) Prothromb Time International Ratio > 15.0 (0.8-1.1) 10.6 (0.8-1.1) Activated Partial Thromboplast Time > 150 SEC (24-38) Glucose (Fingerstick) 193 mg/dL (70-99) White Blood Count 10.7 x10^3/uL (4.0-11.0) Red Blood Count 3.22 x10^6/uL (3.50-5.40) Hemoglobin 9.5 g/dL (12.0-15.5) Hematocrit 29.3 % (36.0-47.0) Mean Corpuscular Volume 91 fL (79-100) Mean Corpuscular Hemoglobin 30 pg (25-35) Mean Corpuscular Hemoglobin Concent 33 g/dL (31-37) Red Cell Distribution Width 17.6 % (11.5-14.5) Platelet Count 144 x10^3/uL (140-400) Neutrophils (%) (Auto) 61 % (31-73) Lymphocytes (%) (Auto) 36 % (24-48) Monocytes (%) (Auto) 2 % (0-9) Eosinophils (%) (Auto) 1 % (0-3) Basophils (%) (Auto) 1 % (0-3) Neutrophils # (Auto) 6.5 x10^3uL (1.8-7.7) Lymphocytes # (Auto) 3.8 x10^3/uL (1.0-4.8) Monocytes # (Auto) 0.2 x10^3/uL (0.0-1.1) Eosinophils # (Auto) 0.1 x10^3/uL (0.0-0.7) Basophils # (Auto) 0.1 x10^3/uL (0.0-0.2) Fibrinogen 208 mg/dL (200-440) Sodium Level 149 mmol/L (136-145) Potassium Level 4.5 mmol/L (3.5-5.1) Chloride Level 110 mmol/L (98-107) Carbon Dioxide Level 10 mmol/L (21-32) Anion Gap 29 (6-14) Blood Urea Nitrogen 16 mg/dL (7-20) Creatinine 1.8 mg/dL (0.6-1.0) Estimated GFR (Cockcroft-Gault) 36.8 BUN/Creatinine Ratio 9 (6-20) Glucose Level 227 mg/dL (70-99) Calcium Level 7.0 mg/dL (8.5-10.1) Total Bilirubin 2.5 mg/dL (0.2-1.0) Aspartate Amino Transf (AST/SGOT) 466 U/L (15-37) Alanine Aminotransferase (ALT/SGPT) 79 U/L (14-59) Alkaline Phosphatase 93 U/L (46-116) Total Protein 4.0 g/dL (6.4-8.2) Albumin 1.6 g/dL (3.4-5.0) Albumin/Globulin Ratio 0.7 (1.0-1.7) Review All relevant outside records, renal labs, imaging studies, telemetry/EKG's were reviewed. HAO RIVERA MD December 20, 2018 11:39
[2018-12-20 11:52] LABS: HEMATOCRIT 31.4 % (36.0-47.0); HEMOGLOBIN 10.2 g/dL (12.0-15.5); RED BLOOD COUNT 3.47 x10^6/uL (3.50-5.40); RED CELL DISTRIBUTION WIDTH 17.8 % (11.5-14.5); WHITE BLOOD COUNT 8.6 x10^3/uL (4.0-11.0)
[2018-12-20] MEDS ORDERED: EPINEPHrine SYRINGE 1 MG/10 ML SYRINGE ONE (12:00)
--- NOTE | 2018-12-20 12:00 | NUR ---
Another bloody stool red and lg. stat H&H sent and PC ordered for active GI bleed. BP down again. Had Epi dose decreased but will increase again. Pall and Dr Gonzalez met with and daughter. Full code status to remain in effect. ST. BP beginning to go down again. AL waveform not good however AL will easliy flush and draw back. Unable to obtain auto cuff. will cont to assess BP with manual cuff and doppler.
--- NOTE | 2018-12-20 12:16 | PDOC ---
SURGICAL PROGRESS NOTE Subjective pt seen this AM intubated, sedated in room Vital Signs Vital Signs Date Time Temp Pulse Resp B/P (MAP) Pulse Ox O2 Delivery O2 Flow Rate FiO2 12/20/18 09:37 94.1 130 19 128/104 94.1 12/20/18 08:54 Ventilator 12/19/18 23:00 100 on pressors I&O Intake and Output 12/20/18 06:59 Intake Total 2396 ml Output Total 59 ml Balance 2337 ml Intake IV Total 2396 ml Output Urine Total 59 ml PATIENT HAS A MELTON: Yes Abdomen: Soft Labs Laboratory Tests Test 12/19/18 13:50 12/19/18 15:15 12/19/18 17:50 12/19/18 20:15 White Blood Count 7.5 x10^3/uL (4.0-11.0) 5.7 x10^3/uL (4.0-11.0) Red Blood Count 3.10 x10^6/uL (3.50-5.40) 2.55 x10^6/uL (3.50-5.40) Hemoglobin 10.0 g/dL (12.0-15.5) 8.3 g/dL (12.0-15.5) Hematocrit 31.5 % (36.0-47.0) 26.7 % (36.0-47.0) Mean Corpuscular Volume 102 fL (79-100) 105 fL (79-100) Mean Corpuscular Hemoglobin 32 pg (25-35) 32 pg (25-35) Mean Corpuscular Hemoglobin Concent 32 g/dL (31-37) 31 g/dL (31-37) Red Cell Distribution Width 17.6 % (11.5-14.5) 17.3 % (11.5-14.5) Platelet Count 454 x10^3/uL (140-400) 475 x10^3/uL (140-400) Neutrophils (%) (Auto) 63 % (31-73) 78 % (31-73) Lymphocytes (%) (Auto) 30 % (24-48) 15 % (24-48) Monocytes (%) (Auto) 7 % (0-9) 4 % (0-9) Eosinophils (%) (Auto) 0 % (0-3) 1 % (0-3) Basophils (%) (Auto) 1 % (0-3) 0 % (0-3) Neutrophils # (Auto) 4.8 x10^3uL (1.8-7.7) 4.5 x10^3uL (1.8-7.7) Lymphocytes # (Auto) 2.2 x10^3/uL (1.0-4.8) 0.9 x10^3/uL (1.0-4.8) Monocytes # (Auto) 0.5 x10^3/uL (0.0-1.1) 0.3 x10^3/uL (0.0-1.1) Eosinophils # (Auto) 0.0 x10^3/uL (0.0-0.7) 0.1 x10^3/uL (0.0-0.7) Basophils # (Auto) 0.0 x10^3/uL (0.0-0.2) 0.0 x10^3/uL (0.0-0.2) Prothrombin Time 53.3 SEC (11.7-14.0) Prothromb Time International Ratio 5.9 (0.8-1.1) Activated Partial Thromboplast Time 143 SEC (24-38) Sodium Level 137 mmol/L (136-145) 141 mmol/L (136-145) Potassium Level 5.2 mmol/L (3.5-5.1) 5.0 mmol/L (3.5-5.1) Chloride Level 107 mmol/L (98-107) 114 mmol/L (98-107) Carbon Dioxide Level 13 mmol/L (21-32) 9 mmol/L (21-32) Anion Gap 17 (6-14) 18 (6-14) Blood Urea Nitrogen 18 mg/dL (7-20) 16 mg/dL (7-20) Creatinine 1.9 mg/dL (0.6-1.0) 1.5 mg/dL (0.6-1.0) Estimated GFR (Cockcroft-Gault) 34.6 45.4 BUN/Creatinine Ratio 9 (6-20) Glucose Level 157 mg/dL (70-99) 159 mg/dL (70-99) Lactic Acid Level 5.9 mmol/L (0.4-2.0) 5.2 mmol/L (0.4-2.0) Calcium Level 8.4 mg/dL (8.5-10.1) 7.1 mg/dL (8.5-10.1) Magnesium Level 1.8 mg/dL (1.8-2.4) Total Bilirubin 3.8 mg/dL (0.2-1.0) 3.2 mg/dL (0.2-1.0) Aspartate Amino Transf (AST/SGOT) 77 U/L (15-37) 59 U/L (15-37) Alanine Aminotransferase (ALT/SGPT) 58 U/L (14-59) 45 U/L (14-59) Alkaline Phosphatase 98 U/L (46-116) 75 U/L (46-116) Creatine Kinase 201 U/L (26-192) 242 U/L (26-192) Creatine Kinase MB (Mass) 2.9 ng/mL (0.0-3.6) 3.2 ng/mL (0.0-3.6) Creatine Kinase MB Relative Index 1.4 % (0-4) 1.3 % (0-4) Troponin I Quantitative < 0.017 ng/mL (0.000-0.055) 0.047 ng/mL (0.000-0.055) Total Protein 5.4 g/dL (6.4-8.2) 4.1 g/dL (6.4-8.2) Albumin 1.7 g/dL (3.4-5.0) 1.3 g/dL (3.4-5.0) Albumin/Globulin Ratio 0.5 (1.0-1.7) Urine Collection Type Unknown Urine Color Red Urine Clarity Clear Urine pH 5.5 Urine Specific [place] 1.025 Urine Protein Negative mg/dL (NEG-TRACE) Urine Glucose (UA) Negative mg/dL (NEG) Urine Ketones (Stick) Trace mg/dL (NEG) Urine Blood Negative (NEG) Urine Nitrite Positive (NEG) Urine Bilirubin Large (NEG) Urine Urobilinogen Dipstick 4.0 mg/dL (0.2 mg/dL) Urine Leukocyte Esterase Small (NEG) Urine RBC 0 /HPF (0-2) Urine WBC 5-10 /HPF (0-4) Urine Squamous Epithelial Cells None /LPF Urine Bacteria 0 /HPF (0-FEW) Urine Hyaline Casts Many /HPF Urine Mucus Mod /LPF Direct Bilirubin 2.8 mg/dL (0.0-0.2) Ammonia 129 mcmol/L (11-34) Segmented Neutrophils % 57 % (35-66) Band Neutrophils % 21 % (0-9) Lymphocytes % 10 % (24-48) Monocytes % 5 % (0-10) Metamyelocytes % 7 % (0-0) Nucleated Red Blood Cells 4 Toxic Vacuolation Slight Platelet Estimate Adequate (ADEQUATE) Polychromasia Occasional Anisocytosis Slight Microcytosis Slight Test 12/19/18 20:18 12/19/18 23:28 12/20/18 00:35 12/20/18 05:40 O2 Saturation 94 % (92-99) 97 % (92-99) 98 % (92-99) Arterial Blood pH 7.19 (7.35-7.45) 6.92 (7.35-7.45) 7.10 (7.35-7.45) Arterial Blood pCO2 at Patient Temp 20 mmHg (35-46) 20 mmHg (35-46) 18 mmHg (35-46) Arterial Blood pO2 at Patient Temp 91 mmHg (75-108) 149 mmHg (75-108) 149 mmHg (75-108) Arterial Blood HCO3 8 mmol/L (21-28) 4 mmol/L (21-28) 5 mmol/L (21-28) Arterial Blood Base Excess -19 mmol/L (-3-3) -27 mmol/L (-3-3) -22 mmol/L (-3-3) FiO2 21 30 30 White Blood Count 10.7 x10^3/uL (4.0-11.0) Red Blood Count 1.37 x10^6/uL (3.50-5.40) Hemoglobin 4.6 g/dL (12.0-15.5) Hematocrit 16.4 % (36.0-47.0) Mean Corpuscular Volume 120 fL (79-100) Mean Corpuscular Hemoglobin 33 pg (25-35) Mean Corpuscular Hemoglobin Concent 28 g/dL (31-37) Red Cell Distribution Width 17.8 % (11.5-14.5) Platelet Count 308 x10^3/uL (140-400) Neutrophils (%) (Auto) 64 % (31-73) Lymphocytes (%) (Auto) 32 % (24-48) Monocytes (%) (Auto) 3 % (0-9) Eosinophils (%) (Auto) 2 % (0-3) Basophils (%) (Auto) 0 % (0-3) Neutrophils # (Auto) 6.9 x10^3uL (1.8-7.7) Lymphocytes # (Auto) 3.4 x10^3/uL (1.0-4.8) Monocytes # (Auto) 0.3 x10^3/uL (0.0-1.1) Eosinophils # (Auto) 0.2 x10^3/uL (0.0-0.7) Basophils # (Auto) 0.0 x10^3/uL (0.0-0.2) Sodium Level 141 mmol/L (136-145) Potassium Level 6.2 mmol/L (3.5-5.1) Chloride Level 111 mmol/L (98-107) Carbon Dioxide Level < 5 mmol/L (21-32) Anion Gap (6-14) Blood Urea Nitrogen 17 mg/dL (7-20) Creatinine 2.0 mg/dL (0.6-1.0) Estimated GFR (Cockcroft-Gault) 32.6 Glucose Level 185 mg/dL (70-99) Lactic Acid Level 19.7 mmol/L (0.4-2.0) Calcium Level 6.7 mg/dL (8.5-10.1) Total Bilirubin 2.0 mg/dL (0.2-1.0) Direct Bilirubin 1.7 mg/dL (0.0-0.2) Aspartate Amino Transf (AST/SGOT) 166 U/L (15-37) Alanine Aminotransferase (ALT/SGPT) 42 U/L (14-59) Alkaline Phosphatase 94 U/L (46-116) Total Protein 2.9 g/dL (6.4-8.2) Albumin 0.7 g/dL (3.4-5.0) Test 12/20/18 06:45 12/20/18 09:00 12/20/18 09:01 12/20/18 10:20 Prothrombin Time > 120.0 SEC (11.7-14.0) 85.1 SEC (11.7-14.0) Prothromb Time International Ratio > 15.0 (0.8-1.1) 10.6 (0.8-1.1) Activated Partial Thromboplast Time > 150 SEC (24-38) O2 Saturation 98 % (92-99) Arterial Blood pH 6.99 (7.35-7.45) Arterial Blood pH (Temp corrected) 7.01 Arterial Blood pCO2 at Patient Temp 20 mmHg (35-46) Arterial Blood pCO2 (Temp correct) 19 mmHg Arterial Blood pO2 at Patient Temp 136 mmHg (75-108) Arterial Blood pO2 (Temp corrected) 124 mmHg Arterial Blood HCO3 5 mmol/L (21-28) Arterial Blood Base Excess -25 mmol/L (-3-3) Glucose (Fingerstick) 193 mg/dL (70-99) White Blood Count 10.7 x10^3/uL (4.0-11.0) Red Blood Count 3.22 x10^6/uL (3.50-5.40) Hemoglobin 9.5 g/dL (12.0-15.5) Hematocrit 29.3 % (36.0-47.0) Mean Corpuscular Volume 91 fL (79-100) Mean Corpuscular Hemoglobin 30 pg (25-35) Mean Corpuscular Hemoglobin Concent 33 g/dL (31-37) Red Cell Distribution Width 17.6 % (11.5-14.5) Platelet Count 144 x10^3/uL (140-400) Neutrophils (%) (Auto) 61 % (31-73) Lymphocytes (%) (Auto) 36 % (24-48) Monocytes (%) (Auto) 2 % (0-9) Eosinophils (%) (Auto) 1 % (0-3) Basophils (%) (Auto) 1 % (0-3) Neutrophils # (Auto) 6.5 x10^3uL (1.8-7.7) Lymphocytes # (Auto) 3.8 x10^3/uL (1.0-4.8) Monocytes # (Auto) 0.2 x10^3/uL (0.0-1.1) Eosinophils # (Auto) 0.1 x10^3/uL (0.0-0.7) Basophils # (Auto) 0.1 x10^3/uL (0.0-0.2) Fibrinogen 208 mg/dL (200-440) Sodium Level 149 mmol/L (136-145) Potassium Level 4.5 mmol/L (3.5-5.1) Chloride Level 110 mmol/L (98-107) Carbon Dioxide Level 10 mmol/L (21-32) Anion Gap 29 (6-14) Blood Urea Nitrogen 16 mg/dL (7-20) Creatinine 1.8 mg/dL (0.6-1.0) Estimated GFR (Cockcroft-Gault) 36.8 BUN/Creatinine Ratio 9 (6-20) Glucose Level 227 mg/dL (70-99) Calcium Level 7.0 mg/dL (8.5-10.1) Total Bilirubin 2.5 mg/dL (0.2-1.0) Aspartate Amino Transf (AST/SGOT) 466 U/L (15-37) Alanine Aminotransferase (ALT/SGPT) 79 U/L (14-59) Alkaline Phosphatase 93 U/L (46-116) Total Protein 4.0 g/dL (6.4-8.2) Albumin 1.6 g/dL (3.4-5.0) Albumin/Globulin Ratio 0.7 (1.0-1.7) Test 12/20/18 11:35 12/20/18 11:38 White Blood Count 8.6 x10^3/uL (4.0-11.0) Red Blood Count 3.47 x10^6/uL (3.50-5.40) Hemoglobin 10.2 g/dL (12.0-15.5) Hematocrit 31.4 % (36.0-47.0) Mean Corpuscular Volume 90 fL (79-100) Mean Corpuscular Hemoglobin 30 pg (25-35) Mean Corpuscular Hemoglobin Concent 33 g/dL (31-37) Red Cell Distribution Width 17.8 % (11.5-14.5) Platelet Count 138 x10^3/uL (140-400) Glucose (Fingerstick) 179 mg/dL (70-99) Laboratory Tests Test 12/19/18 13:50 12/19/18 15:15 12/19/18 17:50 12/19/18 20:15 White Blood Count 7.5 x10^3/uL (4.0-11.0) 5.7 x10^3/uL (4.0-11.0) Red Blood Count 3.10 x10^6/uL (3.50-5.40) 2.55 x10^6/uL (3.50-5.40) Hemoglobin 10.0 g/dL (12.0-15.5) 8.3 g/dL (12.0-15.5) Hematocrit 31.5 % (36.0-47.0) 26.7 % (36.0-47.0) Mean Corpuscular Volume 102 fL (79-100) 105 fL (79-100) Mean Corpuscular Hemoglobin 32 pg (25-35) 32 pg (25-35) Mean Corpuscular Hemoglobin Concent 32 g/dL (31-37) 31 g/dL (31-37) Red Cell Distribution Width 17.6 % (11.5-14.5) 17.3 % (11.5-14.5) Platelet Count 454 x10^3/uL (140-400) 475 x10^3/uL (140-400) Neutrophils (%) (Auto) 63 % (31-73) 78 % (31-73) Lymphocytes (%) (Auto) 30 % (24-48) 15 % (24-48) Monocytes (%) (Auto) 7 % (0-9) 4 % (0-9) Eosinophils (%) (Auto) 0 % (0-3) 1 % (0-3) Basophils (%) (Auto) 1 % (0-3) 0 % (0-3) Neutrophils # (Auto) 4.8 x10^3uL (1.8-7.7) 4.5 x10^3uL (1.8-7.7) Lymphocytes # (Auto) 2.2 x10^3/uL (1.0-4.8) 0.9 x10^3/uL (1.0-4.8) Monocytes # (Auto) 0.5 x10^3/uL (0.0-1.1) 0.3 x10^3/uL (0.0-1.1) Eosinophils # (Auto) 0.0 x10^3/uL (0.0-0.7) 0.1 x10^3/uL (0.0-0.7) Basophils # (Auto) 0.0 x10^3/uL (0.0-0.2) 0.0 x10^3/uL (0.0-0.2) Prothrombin Time 53.3 SEC (11.7-14.0) Prothromb Time International Ratio 5.9 (0.8-1.1) Activated Partial Thromboplast Time 143 SEC (24-38) Sodium Level 137 mmol/L (136-145) 141 mmol/L (136-145) Potassium Level 5.2 mmol/L (3.5-5.1) 5.0 mmol/L (3.5-5.1) Chloride Level 107 mmol/L (98-107) 114 mmol/L (98-107) Carbon Dioxide Level 13 mmol/L (21-32) 9 mmol/L (21-32) Anion Gap 17 (6-14) 18 (6-14) Blood Urea Nitrogen 18 mg/dL (7-20) 16 mg/dL (7-20) Creatinine 1.9 mg/dL (0.6-1.0) 1.5 mg/dL (0.6-1.0) Estimated GFR (Cockcroft-Gault) 34.6 45.4 BUN/Creatinine Ratio 9 (6-20) Glucose Level 157 mg/dL (70-99) 159 mg/dL (70-99) Lactic Acid Level 5.9 mmol/L (0.4-2.0) 5.2 mmol/L (0.4-2.0) Calcium Level 8.4 mg/dL (8.5-10.1) 7.1 mg/dL (8.5-10.1) Magnesium Level 1.8 mg/dL (1.8-2.4) Total Bilirubin 3.8 mg/dL (0.2-1.0) 3.2 mg/dL (0.2-1.0) Aspartate Amino Transf (AST/SGOT) 77 U/L (15-37) 59 U/L (15-37) Alanine Aminotransferase (ALT/SGPT) 58 U/L (14-59) 45 U/L (14-59) Alkaline Phosphatase 98 U/L (46-116) 75 U/L (46-116) Creatine Kinase 201 U/L (26-192) 242 U/L (26-192) Creatine Kinase MB (Mass) 2.9 ng/mL (0.0-3.6) 3.2 ng/mL (0.0-3.6) Creatine Kinase MB Relative Index 1.4 % (0-4) 1.3 % (0-4) Troponin I Quantitative < 0.017 ng/mL (0.000-0.055) 0.047 ng/mL (0.000-0.055) Total Protein 5.4 g/dL (6.4-8.2) 4.1 g/dL (6.4-8.2) Albumin 1.7 g/dL (3.4-5.0) 1.3 g/dL (3.4-5.0) Albumin/Globulin Ratio 0.5 (1.0-1.7) Urine Collection Type Unknown Urine Color Red Urine Clarity Clear Urine pH 5.5 Urine Specific [place] 1.025 Urine Protein Negative mg/dL (NEG-TRACE) Urine Glucose (UA) Negative mg/dL (NEG) Urine Ketones (Stick) Trace mg/dL (NEG) Urine Blood Negative (NEG) Urine Nitrite Positive (NEG) Urine Bilirubin Large (NEG) Urine Urobilinogen Dipstick 4.0 mg/dL (0.2 mg/dL) Urine Leukocyte Esterase Small (NEG) Urine RBC 0 /HPF (0-2) Urine WBC 5-10 /HPF (0-4) Urine Squamous Epithelial Cells None /LPF Urine Bacteria 0 /HPF (0-FEW) Urine Hyaline Casts Many /HPF Urine Mucus Mod /LPF Direct Bilirubin 2.8 mg/dL (0.0-0.2) Ammonia 129 mcmol/L (11-34) Segmented Neutrophils % 57 % (35-66) Band Neutrophils % 21 % (0-9) Lymphocytes % 10 % (24-48) Monocytes % 5 % (0-10) Metamyelocytes % 7 % (0-0) Nucleated Red Blood Cells 4 Toxic Vacuolation Slight Platelet Estimate Adequate (ADEQUATE) Polychromasia Occasional Anisocytosis Slight Microcytosis Slight Test 12/19/18 20:18 12/19/18 23:28 12/20/18 00:35 12/20/18 05:40 O2 Saturation 94 % (92-99) 97 % (92-99) 98 % (92-99) Arterial Blood pH 7.19 (7.35-7.45) 6.92 (7.35-7.45) 7.10 (7.35-7.45) Arterial Blood pCO2 at Patient Temp 20 mmHg (35-46) 20 mmHg (35-46) 18 mmHg (35-46) Arterial Blood pO2 at Patient Temp 91 mmHg (75-108) 149 mmHg (75-108) 149 mmHg (75-108) Arterial Blood HCO3 8 mmol/L (21-28) 4 mmol/L (21-28) 5 mmol/L (21-28) Arterial Blood Base Excess -19 mmol/L (-3-3) -27 mmol/L (-3-3) -22 mmol/L (-3-3) FiO2 21 30 30 White Blood Count 10.7 x10^3/uL (4.0-11.0) Red Blood Count 1.37 x10^6/uL (3.50-5.40) Hemoglobin 4.6 g/dL (12.0-15.5) Hematocrit 16.4 % (36.0-47.0) Mean Corpuscular Volume 120 fL (79-100) Mean Corpuscular Hemoglobin 33 pg (25-35) Mean Corpuscular Hemoglobin Concent 28 g/dL (31-37) Red Cell Distribution Width 17.8 % (11.5-14.5) Platelet Count 308 x10^3/uL (140-400) Neutrophils (%) (Auto) 64 % (31-73) Lymphocytes (%) (Auto) 32 % (24-48) Monocytes (%) (Auto) 3 % (0-9) Eosinophils (%) (Auto) 2 % (0-3) Basophils (%) (Auto) 0 % (0-3) Neutrophils # (Auto) 6.9 x10^3uL (1.8-7.7) Lymphocytes # (Auto) 3.4 x10^3/uL (1.0-4.8) Monocytes # (Auto) 0.3 x10^3/uL (0.0-1.1) Eosinophils # (Auto) 0.2 x10^3/uL (0.0-0.7) Basophils # (Auto) 0.0 x10^3/uL (0.0-0.2) Sodium Level 141 mmol/L (136-145) Potassium Level 6.2 mmol/L (3.5-5.1) Chloride Level 111 mmol/L (98-107) Carbon Dioxide Level < 5 mmol/L (21-32) Anion Gap (6-14) Blood Urea Nitrogen 17 mg/dL (7-20) Creatinine 2.0 mg/dL (0.6-1.0) Estimated GFR (Cockcroft-Gault) 32.6 Glucose Level 185 mg/dL (70-99) Lactic Acid Level 19.7 mmol/L (0.4-2.0) Calcium Level 6.7 mg/dL (8.5-10.1) Total Bilirubin 2.0 mg/dL (0.2-1.0) Direct Bilirubin 1.7 mg/dL (0.0-0.2) Aspartate Amino Transf (AST/SGOT) 166 U/L (15-37) Alanine Aminotransferase (ALT/SGPT) 42 U/L (14-59) Alkaline Phosphatase 94 U/L (46-116) Total Protein 2.9 g/dL (6.4-8.2) Albumin 0.7 g/dL (3.4-5.0) Test 12/20/18 06:45 12/20/18 09:00 12/20/18 09:01 12/20/18 10:20 Prothrombin Time > 120.0 SEC (11.7-14.0) 85.1 SEC (11.7-14.0) Prothromb Time International Ratio > 15.0 (0.8-1.1) 10.6 (0.8-1.1) Activated Partial Thromboplast Time > 150 SEC (24-38) O2 Saturation 98 % (92-99) Arterial Blood pH 6.99 (7.35-7.45) Arterial Blood pH (Temp corrected) 7.01 Arterial Blood pCO2 at Patient Temp 20 mmHg (35-46) Arterial Blood pCO2 (Temp correct) 19 mmHg Arterial Blood pO2 at Patient Temp 136 mmHg (75-108) Arterial Blood pO2 (Temp corrected) 124 mmHg Arterial Blood HCO3 5 mmol/L (21-28) Arterial Blood Base Excess -25 mmol/L (-3-3) Glucose (Fingerstick) 193 mg/dL (70-99) White Blood Count 10.7 x10^3/uL (4.0-11.0) Red Blood Count 3.22 x10^6/uL (3.50-5.40) Hemoglobin 9.5 g/dL (12.0-15.5) Hematocrit 29.3 % (36.0-47.0) Mean Corpuscular Volume 91 fL (79-100) Mean Corpuscular Hemoglobin 30 pg (25-35) Mean Corpuscular Hemoglobin Concent 33 g/dL (31-37) Red Cell Distribution Width 17.6 % (11.5-14.5) Platelet Count 144 x10^3/uL (140-400) Neutrophils (%) (Auto) 61 % (31-73) Lymphocytes (%) (Auto) 36 % (24-48) Monocytes (%) (Auto) 2 % (0-9) Eosinophils (%) (Auto) 1 % (0-3) Basophils (%) (Auto) 1 % (0-3) Neutrophils # (Auto) 6.5 x10^3uL (1.8-7.7) Lymphocytes # (Auto) 3.8 x10^3/uL (1.0-4.8) Monocytes # (Auto) 0.2 x10^3/uL (0.0-1.1) Eosinophils # (Auto) 0.1 x10^3/uL (0.0-0.7) Basophils # (Auto) 0.1 x10^3/uL (0.0-0.2) Fibrinogen 208 mg/dL (200-440) Sodium Level 149 mmol/L (136-145) Potassium Level 4.5 mmol/L (3.5-5.1) Chloride Level 110 mmol/L (98-107) Carbon Dioxide Level 10 mmol/L (21-32) Anion Gap 29 (6-14) Blood Urea Nitrogen 16 mg/dL (7-20) Creatinine 1.8 mg/dL (0.6-1.0) Estimated GFR (Cockcroft-Gault) 36.8 BUN/Creatinine Ratio 9 (6-20) Glucose Level 227 mg/dL (70-99) Calcium Level 7.0 mg/dL (8.5-10.1) Total Bilirubin 2.5 mg/dL (0.2-1.0) Aspartate Amino Transf (AST/SGOT) 466 U/L (15-37) Alanine Aminotransferase (ALT/SGPT) 79 U/L (14-59) Alkaline Phosphatase 93 U/L (46-116) Total Protein 4.0 g/dL (6.4-8.2) Albumin 1.6 g/dL (3.4-5.0) Albumin/Globulin Ratio 0.7 (1.0-1.7) Test 12/20/18 11:35 12/20/18 11:38 White Blood Count 8.6 x10^3/uL (4.0-11.0) Red Blood Count 3.47 x10^6/uL (3.50-5.40) Hemoglobin 10.2 g/dL (12.0-15.5) Hematocrit 31.4 % (36.0-47.0) Mean Corpuscular Volume 90 fL (79-100) Mean Corpuscular Hemoglobin 30 pg (25-35) Mean Corpuscular Hemoglobin Concent 33 g/dL (31-37) Red Cell Distribution Width 17.8 % (11.5-14.5) Platelet Count 138 x10^3/uL (140-400) Glucose (Fingerstick) 179 mg/dL (70-99) Assessment/Plan sepsis pneumoperitoneum coagulopathy not surgical candidate @ present prognosis remains grim Chandu Simpson and Joe will follow in my absence KOKO VERA MD December 20, 2018 12:15
[2018-12-20] MEDS: MIDAZOLAM 100mg/100ml NS BAG 100 ML IV PRN (12:34)
--- NOTE | 2018-12-20 12:39 | PDOC ---
PULMONARY PROGRESS NOTES Subjective ON VENT Vitals Vital Signs Date Time Temp Pulse Resp B/P (MAP) Pulse Ox O2 Delivery O2 Flow Rate FiO2 12/20/18 12:18 Ventilator 12/20/18 12:16 97.5 29 29 70/50 97.5 12/19/18 23:00 100 Lungs: Clear Cardiovascular: S1, S2 Abdomen: Soft, Other Extremities: Other (EDEMA) Labs Laboratory Tests Test 12/19/18 13:50 12/19/18 15:15 12/19/18 17:50 12/19/18 20:15 White Blood Count 7.5 x10^3/uL (4.0-11.0) 5.7 x10^3/uL (4.0-11.0) Red Blood Count 3.10 x10^6/uL (3.50-5.40) 2.55 x10^6/uL (3.50-5.40) Hemoglobin 10.0 g/dL (12.0-15.5) 8.3 g/dL (12.0-15.5) Hematocrit 31.5 % (36.0-47.0) 26.7 % (36.0-47.0) Mean Corpuscular Volume 102 fL (79-100) 105 fL (79-100) Mean Corpuscular Hemoglobin 32 pg (25-35) 32 pg (25-35) Mean Corpuscular Hemoglobin Concent 32 g/dL (31-37) 31 g/dL (31-37) Red Cell Distribution Width 17.6 % (11.5-14.5) 17.3 % (11.5-14.5) Platelet Count 454 x10^3/uL (140-400) 475 x10^3/uL (140-400) Neutrophils (%) (Auto) 63 % (31-73) 78 % (31-73) Lymphocytes (%) (Auto) 30 % (24-48) 15 % (24-48) Monocytes (%) (Auto) 7 % (0-9) 4 % (0-9) Eosinophils (%) (Auto) 0 % (0-3) 1 % (0-3) Basophils (%) (Auto) 1 % (0-3) 0 % (0-3) Neutrophils # (Auto) 4.8 x10^3uL (1.8-7.7) 4.5 x10^3uL (1.8-7.7) Lymphocytes # (Auto) 2.2 x10^3/uL (1.0-4.8) 0.9 x10^3/uL (1.0-4.8) Monocytes # (Auto) 0.5 x10^3/uL (0.0-1.1) 0.3 x10^3/uL (0.0-1.1) Eosinophils # (Auto) 0.0 x10^3/uL (0.0-0.7) 0.1 x10^3/uL (0.0-0.7) Basophils # (Auto) 0.0 x10^3/uL (0.0-0.2) 0.0 x10^3/uL (0.0-0.2) Prothrombin Time 53.3 SEC (11.7-14.0) Prothromb Time International Ratio 5.9 (0.8-1.1) Activated Partial Thromboplast Time 143 SEC (24-38) Sodium Level 137 mmol/L (136-145) 141 mmol/L (136-145) Potassium Level 5.2 mmol/L (3.5-5.1) 5.0 mmol/L (3.5-5.1) Chloride Level 107 mmol/L (98-107) 114 mmol/L (98-107) Carbon Dioxide Level 13 mmol/L (21-32) 9 mmol/L (21-32) Anion Gap 17 (6-14) 18 (6-14) Blood Urea Nitrogen 18 mg/dL (7-20) 16 mg/dL (7-20) Creatinine 1.9 mg/dL (0.6-1.0) 1.5 mg/dL (0.6-1.0) Estimated GFR (Cockcroft-Gault) 34.6 45.4 BUN/Creatinine Ratio 9 (6-20) Glucose Level 157 mg/dL (70-99) 159 mg/dL (70-99) Lactic Acid Level 5.9 mmol/L (0.4-2.0) 5.2 mmol/L (0.4-2.0) Calcium Level 8.4 mg/dL (8.5-10.1) 7.1 mg/dL (8.5-10.1) Magnesium Level 1.8 mg/dL (1.8-2.4) Total Bilirubin 3.8 mg/dL (0.2-1.0) 3.2 mg/dL (0.2-1.0) Aspartate Amino Transf (AST/SGOT) 77 U/L (15-37) 59 U/L (15-37) Alanine Aminotransferase (ALT/SGPT) 58 U/L (14-59) 45 U/L (14-59) Alkaline Phosphatase 98 U/L (46-116) 75 U/L (46-116) Creatine Kinase 201 U/L (26-192) 242 U/L (26-192) Creatine Kinase MB (Mass) 2.9 ng/mL (0.0-3.6) 3.2 ng/mL (0.0-3.6) Creatine Kinase MB Relative Index 1.4 % (0-4) 1.3 % (0-4) Troponin I Quantitative < 0.017 ng/mL (0.000-0.055) 0.047 ng/mL (0.000-0.055) Total Protein 5.4 g/dL (6.4-8.2) 4.1 g/dL (6.4-8.2) Albumin 1.7 g/dL (3.4-5.0) 1.3 g/dL (3.4-5.0) Albumin/Globulin Ratio 0.5 (1.0-1.7) Urine Collection Type Unknown Urine Color Red Urine Clarity Clear Urine pH 5.5 Urine Specific [place] 1.025 Urine Protein Negative mg/dL (NEG-TRACE) Urine Glucose (UA) Negative mg/dL (NEG) Urine Ketones (Stick) Trace mg/dL (NEG) Urine Blood Negative (NEG) Urine Nitrite Positive (NEG) Urine Bilirubin Large (NEG) Urine Urobilinogen Dipstick 4.0 mg/dL (0.2 mg/dL) Urine Leukocyte Esterase Small (NEG) Urine RBC 0 /HPF (0-2) Urine WBC 5-10 /HPF (0-4) Urine Squamous Epithelial Cells None /LPF Urine Bacteria 0 /HPF (0-FEW) Urine Hyaline Casts Many /HPF Urine Mucus Mod /LPF Direct Bilirubin 2.8 mg/dL (0.0-0.2) Ammonia 129 mcmol/L (11-34) Segmented Neutrophils % 57 % (35-66) Band Neutrophils % 21 % (0-9) Lymphocytes % 10 % (24-48) Monocytes % 5 % (0-10) Metamyelocytes % 7 % (0-0) Nucleated Red Blood Cells 4 Toxic Vacuolation Slight Platelet Estimate Adequate (ADEQUATE) Polychromasia Occasional Anisocytosis Slight Microcytosis Slight Test 12/19/18 20:18 12/19/18 23:28 12/20/18 00:35 12/20/18 05:40 O2 Saturation 94 % (92-99) 97 % (92-99) 98 % (92-99) Arterial Blood pH 7.19 (7.35-7.45) 6.92 (7.35-7.45) 7.10 (7.35-7.45) Arterial Blood pCO2 at Patient Temp 20 mmHg (35-46) 20 mmHg (35-46) 18 mmHg (35-46) Arterial Blood pO2 at Patient Temp 91 mmHg (75-108) 149 mmHg (75-108) 149 mmHg (75-108) Arterial Blood HCO3 8 mmol/L (21-28) 4 mmol/L (21-28) 5 mmol/L (21-28) Arterial Blood Base Excess -19 mmol/L (-3-3) -27 mmol/L (-3-3) -22 mmol/L (-3-3) FiO2 21 30 30 White Blood Count 10.7 x10^3/uL (4.0-11.0) Red Blood Count 1.37 x10^6/uL (3.50-5.40) Hemoglobin 4.6 g/dL (12.0-15.5) Hematocrit 16.4 % (36.0-47.0) Mean Corpuscular Volume 120 fL (79-100) Mean Corpuscular Hemoglobin 33 pg (25-35) Mean Corpuscular Hemoglobin Concent 28 g/dL (31-37) Red Cell Distribution Width 17.8 % (11.5-14.5) Platelet Count 308 x10^3/uL (140-400) Neutrophils (%) (Auto) 64 % (31-73) Lymphocytes (%) (Auto) 32 % (24-48) Monocytes (%) (Auto) 3 % (0-9) Eosinophils (%) (Auto) 2 % (0-3) Basophils (%) (Auto) 0 % (0-3) Neutrophils # (Auto) 6.9 x10^3uL (1.8-7.7) Lymphocytes # (Auto) 3.4 x10^3/uL (1.0-4.8) Monocytes # (Auto) 0.3 x10^3/uL (0.0-1.1) Eosinophils # (Auto) 0.2 x10^3/uL (0.0-0.7) Basophils # (Auto) 0.0 x10^3/uL (0.0-0.2) Sodium Level 141 mmol/L (136-145) Potassium Level 6.2 mmol/L (3.5-5.1) Chloride Level 111 mmol/L (98-107) Carbon Dioxide Level < 5 mmol/L (21-32) Anion Gap (6-14) Blood Urea Nitrogen 17 mg/dL (7-20) Creatinine 2.0 mg/dL (0.6-1.0) Estimated GFR (Cockcroft-Gault) 32.6 Glucose Level 185 mg/dL (70-99) Lactic Acid Level 19.7 mmol/L (0.4-2.0) Calcium Level 6.7 mg/dL (8.5-10.1) Total Bilirubin 2.0 mg/dL (0.2-1.0) Direct Bilirubin 1.7 mg/dL (0.0-0.2) Aspartate Amino Transf (AST/SGOT) 166 U/L (15-37) Alanine Aminotransferase (ALT/SGPT) 42 U/L (14-59) Alkaline Phosphatase 94 U/L (46-116) Total Protein 2.9 g/dL (6.4-8.2) Albumin 0.7 g/dL (3.4-5.0) Test 12/20/18 06:45 12/20/18 09:00 12/20/18 09:01 12/20/18 10:20 Prothrombin Time > 120.0 SEC (11.7-14.0) 85.1 SEC (11.7-14.0) Prothromb Time International Ratio > 15.0 (0.8-1.1) 10.6 (0.8-1.1) Activated Partial Thromboplast Time > 150 SEC (24-38) O2 Saturation 98 % (92-99) Arterial Blood pH 6.99 (7.35-7.45) Arterial Blood pH (Temp corrected) 7.01 Arterial Blood pCO2 at Patient Temp 20 mmHg (35-46) Arterial Blood pCO2 (Temp correct) 19 mmHg Arterial Blood pO2 at Patient Temp 136 mmHg (75-108) Arterial Blood pO2 (Temp corrected) 124 mmHg Arterial Blood HCO3 5 mmol/L (21-28) Arterial Blood Base Excess -25 mmol/L (-3-3) Glucose (Fingerstick) 193 mg/dL (70-99) White Blood Count 10.7 x10^3/uL (4.0-11.0) Red Blood Count 3.22 x10^6/uL (3.50-5.40) Hemoglobin 9.5 g/dL (12.0-15.5) Hematocrit 29.3 % (36.0-47.0) Mean Corpuscular Volume 91 fL (79-100) Mean Corpuscular Hemoglobin 30 pg (25-35) Mean Corpuscular Hemoglobin Concent 33 g/dL (31-37) Red Cell Distribution Width 17.6 % (11.5-14.5) Platelet Count 144 x10^3/uL (140-400) Neutrophils (%) (Auto) 61 % (31-73) Lymphocytes (%) (Auto) 36 % (24-48) Monocytes (%) (Auto) 2 % (0-9) Eosinophils (%) (Auto) 1 % (0-3) Basophils (%) (Auto) 1 % (0-3) Neutrophils # (Auto) 6.5 x10^3uL (1.8-7.7) Lymphocytes # (Auto) 3.8 x10^3/uL (1.0-4.8) Monocytes # (Auto) 0.2 x10^3/uL (0.0-1.1) Eosinophils # (Auto) 0.1 x10^3/uL (0.0-0.7) Basophils # (Auto) 0.1 x10^3/uL (0.0-0.2) Fibrinogen 208 mg/dL (200-440) Sodium Level 149 mmol/L (136-145) Potassium Level 4.5 mmol/L (3.5-5.1) Chloride Level 110 mmol/L (98-107) Carbon Dioxide Level 10 mmol/L (21-32) Anion Gap 29 (6-14) Blood Urea Nitrogen 16 mg/dL (7-20) Creatinine 1.8 mg/dL (0.6-1.0) Estimated GFR (Cockcroft-Gault) 36.8 BUN/Creatinine Ratio 9 (6-20) Glucose Level 227 mg/dL (70-99) Calcium Level 7.0 mg/dL (8.5-10.1) Total Bilirubin 2.5 mg/dL (0.2-1.0) Aspartate Amino Transf (AST/SGOT) 466 U/L (15-37) Alanine Aminotransferase (ALT/SGPT) 79 U/L (14-59) Alkaline Phosphatase 93 U/L (46-116) Total Protein 4.0 g/dL (6.4-8.2) Albumin 1.6 g/dL (3.4-5.0) Albumin/Globulin Ratio 0.7 (1.0-1.7) Test 12/20/18 11:35 12/20/18 11:38 White Blood Count 8.6 x10^3/uL (4.0-11.0) Red Blood Count 3.47 x10^6/uL (3.50-5.40) Hemoglobin 10.2 g/dL (12.0-15.5) Hematocrit 31.4 % (36.0-47.0) Mean Corpuscular Volume 90 fL (79-100) Mean Corpuscular Hemoglobin 30 pg (25-35) Mean Corpuscular Hemoglobin Concent 33 g/dL (31-37) Red Cell Distribution Width 17.8 % (11.5-14.5) Platelet Count 138 x10^3/uL (140-400) Glucose (Fingerstick) 179 mg/dL (70-99) Laboratory Tests Test 12/19/18 13:50 12/19/18 15:15 12/19/18 17:50 12/19/18 20:15 White Blood Count 7.5 x10^3/uL (4.0-11.0) 5.7 x10^3/uL (4.0-11.0) Red Blood Count 3.10 x10^6/uL (3.50-5.40) 2.55 x10^6/uL (3.50-5.40) Hemoglobin 10.0 g/dL (12.0-15.5) 8.3 g/dL (12.0-15.5) Hematocrit 31.5 % (36.0-47.0) 26.7 % (36.0-47.0) Mean Corpuscular Volume 102 fL (79-100) 105 fL (79-100) Mean Corpuscular Hemoglobin 32 pg (25-35) 32 pg (25-35) Mean Corpuscular Hemoglobin Concent 32 g/dL (31-37) 31 g/dL (31-37) Red Cell Distribution Width 17.6 % (11.5-14.5) 17.3 % (11.5-14.5) Platelet Count 454 x10^3/uL (140-400) 475 x10^3/uL (140-400) Neutrophils (%) (Auto) 63 % (31-73) 78 % (31-73) Lymphocytes (%) (Auto) 30 % (24-48) 15 % (24-48) Monocytes (%) (Auto) 7 % (0-9) 4 % (0-9) Eosinophils (%) (Auto) 0 % (0-3) 1 % (0-3) Basophils (%) (Auto) 1 % (0-3) 0 % (0-3) Neutrophils # (Auto) 4.8 x10^3uL (1.8-7.7) 4.5 x10^3uL (1.8-7.7) Lymphocytes # (Auto) 2.2 x10^3/uL (1.0-4.8) 0.9 x10^3/uL (1.0-4.8) Monocytes # (Auto) 0.5 x10^3/uL (0.0-1.1) 0.3 x10^3/uL (0.0-1.1) Eosinophils # (Auto) 0.0 x10^3/uL (0.0-0.7) 0.1 x10^3/uL (0.0-0.7) Basophils # (Auto) 0.0 x10^3/uL (0.0-0.2) 0.0 x10^3/uL (0.0-0.2) Prothrombin Time 53.3 SEC (11.7-14.0) Prothromb Time International Ratio 5.9 (0.8-1.1) Activated Partial Thromboplast Time 143 SEC (24-38) Sodium Level 137 mmol/L (136-145) 141 mmol/L (136-145) Potassium Level 5.2 mmol/L (3.5-5.1) 5.0 mmol/L (3.5-5.1) Chloride Level 107 mmol/L (98-107) 114 mmol/L (98-107) Carbon Dioxide Level 13 mmol/L (21-32) 9 mmol/L (21-32) Anion Gap 17 (6-14) 18 (6-14) Blood Urea Nitrogen 18 mg/dL (7-20) 16 mg/dL (7-20) Creatinine 1.9 mg/dL (0.6-1.0) 1.5 mg/dL (0.6-1.0) Estimated GFR (Cockcroft-Gault) 34.6 45.4 BUN/Creatinine Ratio 9 (6-20) Glucose Level 157 mg/dL (70-99) 159 mg/dL (70-99) Lactic Acid Level 5.9 mmol/L (0.4-2.0) 5.2 mmol/L (0.4-2.0) Calcium Level 8.4 mg/dL (8.5-10.1) 7.1 mg/dL (8.5-10.1) Magnesium Level 1.8 mg/dL (1.8-2.4) Total Bilirubin 3.8 mg/dL (0.2-1.0) 3.2 mg/dL (0.2-1.0) Aspartate Amino Transf (AST/SGOT) 77 U/L (15-37) 59 U/L (15-37) Alanine Aminotransferase (ALT/SGPT) 58 U/L (14-59) 45 U/L (14-59) Alkaline Phosphatase 98 U/L (46-116) 75 U/L (46-116) Creatine Kinase 201 U/L (26-192) 242 U/L (26-192) Creatine Kinase MB (Mass) 2.9 ng/mL (0.0-3.6) 3.2 ng/mL (0.0-3.6) Creatine Kinase MB Relative Index 1.4 % (0-4) 1.3 % (0-4) Troponin I Quantitative < 0.017 ng/mL (0.000-0.055) 0.047 ng/mL (0.000-0.055) Total Protein 5.4 g/dL (6.4-8.2) 4.1 g/dL (6.4-8.2) Albumin 1.7 g/dL (3.4-5.0) 1.3 g/dL (3.4-5.0) Albumin/Globulin Ratio 0.5 (1.0-1.7) Urine Collection Type Unknown Urine Color Red Urine Clarity Clear Urine pH 5.5 Urine Specific [place] 1.025 Urine Protein Negative mg/dL (NEG-TRACE) Urine Glucose (UA) Negative mg/dL (NEG) Urine Ketones (Stick) Trace mg/dL (NEG) Urine Blood Negative (NEG) Urine Nitrite Positive (NEG) Urine Bilirubin Large (NEG) Urine Urobilinogen Dipstick 4.0 mg/dL (0.2 mg/dL) Urine Leukocyte Esterase Small (NEG) Urine RBC 0 /HPF (0-2) Urine WBC 5-10 /HPF (0-4) Urine Squamous Epithelial Cells None /LPF Urine Bacteria 0 /HPF (0-FEW) Urine Hyaline Casts Many /HPF Urine Mucus Mod /LPF Direct Bilirubin 2.8 mg/dL (0.0-0.2) Ammonia 129 mcmol/L (11-34) Segmented Neutrophils % 57 % (35-66) Band Neutrophils % 21 % (0-9) Lymphocytes % 10 % (24-48) Monocytes % 5 % (0-10) Metamyelocytes % 7 % (0-0) Nucleated Red Blood Cells 4 Toxic Vacuolation Slight Platelet Estimate Adequate (ADEQUATE) Polychromasia Occasional Anisocytosis Slight Microcytosis Slight Test 12/19/18 20:18 12/19/18 23:28 12/20/18 00:35 12/20/18 05:40 O2 Saturation 94 % (92-99) 97 % (92-99) 98 % (92-99) Arterial Blood pH 7.19 (7.35-7.45) 6.92 (7.35-7.45) 7.10 (7.35-7.45) Arterial Blood pCO2 at Patient Temp 20 mmHg (35-46) 20 mmHg (35-46) 18 mmHg (35-46) Arterial Blood pO2 at Patient Temp 91 mmHg (75-108) 149 mmHg (75-108) 149 mmHg (75-108) Arterial Blood HCO3 8 mmol/L (21-28) 4 mmol/L (21-28) 5 mmol/L (21-28) Arterial Blood Base Excess -19 mmol/L (-3-3) -27 mmol/L (-3-3) -22 mmol/L (-3-3) FiO2 21 30 30 White Blood Count 10.7 x10^3/uL (4.0-11.0) Red Blood Count 1.37 x10^6/uL (3.50-5.40) Hemoglobin 4.6 g/dL (12.0-15.5) Hematocrit 16.4 % (36.0-47.0) Mean Corpuscular Volume 120 fL (79-100) Mean Corpuscular Hemoglobin 33 pg (25-35) Mean Corpuscular Hemoglobin Concent 28 g/dL (31-37) Red Cell Distribution Width 17.8 % (11.5-14.5) Platelet Count 308 x10^3/uL (140-400) Neutrophils (%) (Auto) 64 % (31-73) Lymphocytes (%) (Auto) 32 % (24-48) Monocytes (%) (Auto) 3 % (0-9) Eosinophils (%) (Auto) 2 % (0-3) Basophils (%) (Auto) 0 % (0-3) Neutrophils # (Auto) 6.9 x10^3uL (1.8-7.7) Lymphocytes # (Auto) 3.4 x10^3/uL (1.0-4.8) Monocytes # (Auto) 0.3 x10^3/uL (0.0-1.1) Eosinophils # (Auto) 0.2 x10^3/uL (0.0-0.7) Basophils # (Auto) 0.0 x10^3/uL (0.0-0.2) Sodium Level 141 mmol/L (136-145) Potassium Level 6.2 mmol/L (3.5-5.1) Chloride Level 111 mmol/L (98-107) Carbon Dioxide Level < 5 mmol/L (21-32) Anion Gap (6-14) Blood Urea Nitrogen 17 mg/dL (7-20) Creatinine 2.0 mg/dL (0.6-1.0) Estimated GFR (Cockcroft-Gault) 32.6 Glucose Level 185 mg/dL (70-99) Lactic Acid Level 19.7 mmol/L (0.4-2.0) Calcium Level 6.7 mg/dL (8.5-10.1) Total Bilirubin 2.0 mg/dL (0.2-1.0) Direct Bilirubin 1.7 mg/dL (0.0-0.2) Aspartate Amino Transf (AST/SGOT) 166 U/L (15-37) Alanine Aminotransferase (ALT/SGPT) 42 U/L (14-59) Alkaline Phosphatase 94 U/L (46-116) Total Protein 2.9 g/dL (6.4-8.2) Albumin 0.7 g/dL (3.4-5.0) Test 12/20/18 06:45 12/20/18 09:00 12/20/18 09:01 12/20/18 10:20 Prothrombin Time > 120.0 SEC (11.7-14.0) 85.1 SEC (11.7-14.0) Prothromb Time International Ratio > 15.0 (0.8-1.1) 10.6 (0.8-1.1) Activated Partial Thromboplast Time > 150 SEC (24-38) O2 Saturation 98 % (92-99) Arterial Blood pH 6.99 (7.35-7.45) Arterial Blood pH (Temp corrected) 7.01 Arterial Blood pCO2 at Patient Temp 20 mmHg (35-46) Arterial Blood pCO2 (Temp correct) 19 mmHg Arterial Blood pO2 at Patient Temp 136 mmHg (75-108) Arterial Blood pO2 (Temp corrected) 124 mmHg Arterial Blood HCO3 5 mmol/L (21-28) Arterial Blood Base Excess -25 mmol/L (-3-3) Glucose (Fingerstick) 193 mg/dL (70-99) White Blood Count 10.7 x10^3/uL (4.0-11.0) Red Blood Count 3.22 x10^6/uL (3.50-5.40) Hemoglobin 9.5 g/dL (12.0-15.5) Hematocrit 29.3 % (36.0-47.0) Mean Corpuscular Volume 91 fL (79-100) Mean Corpuscular Hemoglobin 30 pg (25-35) Mean Corpuscular Hemoglobin Concent 33 g/dL (31-37) Red Cell Distribution Width 17.6 % (11.5-14.5) Platelet Count 144 x10^3/uL (140-400) Neutrophils (%) (Auto) 61 % (31-73) Lymphocytes (%) (Auto) 36 % (24-48) Monocytes (%) (Auto) 2 % (0-9) Eosinophils (%) (Auto) 1 % (0-3) Basophils (%) (Auto) 1 % (0-3) Neutrophils # (Auto) 6.5 x10^3uL (1.8-7.7) Lymphocytes # (Auto) 3.8 x10^3/uL (1.0-4.8) Monocytes # (Auto) 0.2 x10^3/uL (0.0-1.1) Eosinophils # (Auto) 0.1 x10^3/uL (0.0-0.7) Basophils # (Auto) 0.1 x10^3/uL (0.0-0.2) Fibrinogen 208 mg/dL (200-440) Sodium Level 149 mmol/L (136-145) Potassium Level 4.5 mmol/L (3.5-5.1) Chloride Level 110 mmol/L (98-107) Carbon Dioxide Level 10 mmol/L (21-32) Anion Gap 29 (6-14) Blood Urea Nitrogen 16 mg/dL (7-20) Creatinine 1.8 mg/dL (0.6-1.0) Estimated GFR (Cockcroft-Gault) 36.8 BUN/Creatinine Ratio 9 (6-20) Glucose Level 227 mg/dL (70-99) Calcium Level 7.0 mg/dL (8.5-10.1) Total Bilirubin 2.5 mg/dL (0.2-1.0) Aspartate Amino Transf (AST/SGOT) 466 U/L (15-37) Alanine Aminotransferase (ALT/SGPT) 79 U/L (14-59) Alkaline Phosphatase 93 U/L (46-116) Total Protein 4.0 g/dL (6.4-8.2) Albumin 1.6 g/dL (3.4-5.0) Albumin/Globulin Ratio 0.7 (1.0-1.7) Test 12/20/18 11:35 12/20/18 11:38 White Blood Count 8.6 x10^3/uL (4.0-11.0) Red Blood Count 3.47 x10^6/uL (3.50-5.40) Hemoglobin 10.2 g/dL (12.0-15.5) Hematocrit 31.4 % (36.0-47.0) Mean Corpuscular Volume 90 fL (79-100) Mean Corpuscular Hemoglobin 30 pg (25-35) Mean Corpuscular Hemoglobin Concent 33 g/dL (31-37) Red Cell Distribution Width 17.8 % (11.5-14.5) Platelet Count 138 x10^3/uL (140-400) Glucose (Fingerstick) 179 mg/dL (70-99) Medications Active Scripts Medications Dose Route/Sig Max Daily Dose Days Date Category Dose Instructions Ativan (Lorazepam) 0.5 Mg Tablet 0.5 Mg PO PRN Q6HRS PRN 15 11/20/18 Rx Polyethylene Glycol 3350 17 Gm Powd.pack 17 Gm PO PRN DAILY PRN 30 11/20/18 Rx Colace (Docusate Sodium) 100 Mg Capsule 100 Mg PO PRN BID PRN 30 11/20/18 Rx Culturelle (Lactobacillus Rhamnosus Gg) 1 Each Cap.sprink 1 Cap PO BID 7 11/20/18 Rx Hydrocodone-Apap 5-325 (Hydrocodone Bit/Acetaminophen) 1 Tab Tablet 1 Tab PO PRN Q6HRS PRN 6 11/20/18 Rx Tylenol (Acetaminophen) 325 Mg Tablet 650 Mg PO PRN Q4HRS PRN 30 11/20/18 Rx Catapres (Clonidine Hcl) 0.1 Mg Tablet 0.1 Mg PO PRN Q6HRS PRN 30 11/20/18 Rx SBP > 160 or DBP > 90 Proair Hfa (Albuterol Sulfate) 8.5 Gm Hfa.aer.ad 2.5 Mg NEB PRN Q4HRS PRN 30 11/20/18 Rx Cozaar (Losartan Potassium) 50 Mg Tablet 100 Mg PO DAILY 30 07/05/18 Rx Carafate (Sucralfate) 1 Gm Tablet 1 Gm PO QIDACHS 8/31/18 Rx [Pantoprazole] 40 MG Tablet. 40 Mg PO BIDAC 04/21/18 Rx Carvedilol (Carvedilol) 3.125 Mg Tablet 3.125 Mg PO BIDWMEALS 04/18/18 Reported Xarelto (Rivaroxaban) 20 Mg Tablet 20 Mg PO DAILY 04/18/18 Reported Latuda (Lurasidone Hcl) 40 Mg Tablet 40 Mg PO DAILY 04/18/18 Reported Vitamin D3 (Cholecalciferol (Vitamin D3)) 50,000 Unit Capsule 50,000 Unit PO WEEKLY 04/18/18 Reported Folic Acid 1 Mg Tablet 1 Mg PO DAILY 04/18/18 Reported Magnesium Oxide 400 Mg Tablet 250 Mg PO DAILY 04/18/18 Reported Impression . ACUTE RESP FAILURE MULTIORGAN FAILURE BOWEL PERFORATIION COAGULOPATHY GI BLEED SEVERE MET ACIDOSIS Plan . D/W HE WAS INFORMED THAT PT WILL NOT SURVIVE WILL CONTINUE SUPPORT HE WISHES FULL CODE D/W DR VERA OVERNIGHT AND TODAY D/W DR RIVERA AND KASI JAVED MD December 20, 2018 12:38
--- NOTE | 2018-12-20 13:08 | PDOC2 ---
CONSULT Date of Consult Date of Consult DATE: 12/20/18 TIME: 12:54 Reason for consultation: Coagulopathy Consult: Hematology oncology, Dr. Jessica Abreu History of present illness: She is a 43-year-old female who came from [facility] yesterday, she had been on lactulose with frequent bowel movements and increasing abdominal cramping, she was brought here to the ER yesterday afternoon and found to be hypotensive, with SVT, and x-rays show free intraperitoneal gas with evidence of GI perforation, unfortunately blood pressure is so low on 4 pressors that she is too unstable for surgery, hemoglobin dropped to 4.6 and improved to 10 however since that last result she has had continued bloody bowel movements, INR significantly elevated to 15, acutely, worsened due to underlying liver disease, improved with vitamin K down to 10, associated with her significant bleeding. Her last dose of several toe for history of DVT and PE was likely greater than 24 hours ago. Also with prolonged PTT and platelets that have dropped down to 138 since admit. 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 chronic thrombosis in October restarted on Xarelto Hypertension Recent multidrug resistant UTI Heterozygous HFE mutation reportedly Past surgical history: Gastric bypass Sabi-en-Y IVC filter placement EGD Liver biopsy without excess iron deposition November 2018 Cholelithiasis Bilateral tubal ligation Uterine ablation Allergies: Bananas, Keflex, fentanyl, shrimp Medications: See attached list Social history: , came here from [facility] rehabilitation after recent admit Family history: Coronary artery disease Review of systems: Abdominal cramping, bloody stools, encephalopathy, rest of review of systems unobtainable as patient is not responding Physical exam: Vitals reviewed, temperature 95 improved with warming Gen.: Obese -[place]ic female intubated, sedate, with evidence of bleeding from her rectum HEENT: mucous membranes dry, head normocephalic atraumatic Lymph nodes: No obvious palpable lymphadenopathy neck or axilla Lungs: intubated, breathing comfortably Heart: Regular rhythm, tachy Abdomen: firm, mildly distended, no obvious tenderness Extremities: diffuse edema BLE Skin: No obvious rashes or skin breakdown Neuro: sedate, not responding to verbal or physical stimuli Psych: n/a Lab reviewed: White count 8.6, hemoglobin 10.2 up from 4.6, platelets 138 down from 454 Fibrinogen 208 Creatinine 1.8 Lactic acid 19.7 T bili 2.5 AST 466 ALT 79 Ammonia 129 INR 5 up to 15 down to 10 after vitamin K PTT greater than 150 Rads reviewed: 06 November 2018 bilateral lower extremity ultrasound with DVTs and VQ scan with intermediate probability left lower lobe, question chronicity [address] angiogram shows repeat demonstration of bilateral pulmonary artery linear filling defect, Old recanalized embolus?, with low attenuation liver, could be fatty liver, and patchy groundglass opacity left lung [address] no acute findings Chest x-ray 19 December 2018 free intraperitoneal gas, possible small left apical pneumothorax KUB 20 Dec 2018 pneumoperitoneum persists Case discussed with: Her , her nurse, Ms. Kebede, records reviewed in [facility], including labs and radiology, please see note for summary details. Assessment and Plan: She is a 43-year-old female with septic shock, unfortunate GI perforation, clinical instability, coagulopathy, fatty liver with liver s hock, recent use of Xarelto for history of DVT and PE, IVC filter placement, and very grim prognosis with ongoing GI bleeding. GI perforation: Too unstable currently for surgery Sepsis with shock: On pressors, antibiotics, history of multidrug resistant UTI as well History of DVT and PE: Does have an IVC filter placed, anti-coagulation is held with ongoing bleeding Coagulopathy: Greater than 24-hours since last dose of Xarelto, doubt benefit of protein C concentrate for reversal at this point or attempting to get andexanet mukund, would treat supportively, platelets if platelet count less than 50, cryoprecipitate if fibrinogen less than 100, red blood cells if hemoglobin less than 7, vitamin K, we'll repeat 10 mg, can repeat every 6 hours as needed for prolonged INR, checking ferritin with next lab draw, smear showed 7% metamyelocytes, suspect related to shock, can reevaluate in follow-up as needed. Prognosis: Very poor, Ms. Kebede is involved with palliative care, her is aware of her dismal prognosis, withdrawal of care may be considered Thank you kindly for this consultation, and please don't hesitate to call with any further questions. Past Medical History Cardiovascular: HTN Pulmonary: Pulmonary embolus CENTRAL NERVOUS SYSTEM: Other GI: Peptic Ulcer disease Heme/Onc: Other Hepatobiliary: Cholelithiasis Psych: No pertinent hx Musculoskeletal: Other Rheumatologic: No pertinent hx Infectious disease: Other Renal/: No pertinent hx Past Surgical History Past Surgical History: Cholecystectomy, Tubal Ligation, Other (gastric bypass) Family History Family History: Coronary Artery Disease Social History Social History: Parent No ALCOHOL: none Drugs: None Lives: with Family Current Medications Current Medications Current Medications Sodium Chloride 1,000 ml @ 1,000 mls/hr 1X ONCE IV ; Start 12/19/18 at 14:00; Stop 12/19/18 at 15:01; Status DC Lidocaine HCl (Lidocaine 1% 20ml Vial) 20 ml STK-MED ONCE .ROUTE ; Start 12/19/18 at 14:11; Stop 12/19/18 at 14:12; Status DC Norepinephrine Bitartrate 250 ml @ 1.875 mls/ hr 1X ONCE IV ; Start 12/19/18 at 14:30; Stop 12/19/18 at 14:30; Status DC Sodium Chloride 1,000 ml @ 1,000 mls/hr 1X ONCE IV ; Start 12/19/18 at 14:30; Stop 12/19/18 at 15:29; Status DC Norepinephrine Bitartrate 250 ml @ 0 mls/hr 1X ONCE IV ; Start 12/19/18 at 14:30; Stop 12/19/18 at 14:31; Status DC Ondansetron HCl (Zofran) 4 mg STK-MED ONCE .ROUTE ; Start 12/19/18 at 14:27; Stop 12/19/18 at 14:28; Status DC Meropenem 1 gm/ Sodium Chloride 100 ml @ 200 mls/hr Q8HRS IV ; Start 12/19/18 at 15:00; Stop 12/19/18 at 21:33; Status DC Fentanyl Citrate (Fentanyl 2ml Vial) 100 mcg STK-MED ONCE .ROUTE ; Start 12/19/18 at 14:38; Stop 12/19/18 at 14:39; Status DC Vasopressin 40 unit/Dextrose 102 ml @ 6 mls/hr CONT PRN IV SEE I/O RECORD Last administered on 12/20/18at 06:29; Start 12/19/18 at 17:15 Diphenhydramine HCl (Benadryl) 50 mg STK-MED ONCE .ROUTE ; Start 12/19/18 at 15:00; Stop 12/19/18 at 17:18; Status DC Adenosine (Adenocard) 6 mg STK-MED ONCE IV ; Start 12/19/18 at 15:30; Stop 12/19/18 at 17:20; Status DC Morphine Sulfate (Morphine Sulfate) 2 mg STK-MED ONCE .ROUTE ; Start 12/19/18 at 17:23; Stop 12/19/18 at 17:24; Status DC Morphine Sulfate (Morphine Sulfate) 2 mg PRN Q1HR PRN IV PAIN; Start 12/19/18 at 18:15 Norepinephrine Bitartrate 250 ml @ 1.875 mls/ hr CONT PRN IV SEE I/O RECORD Last administered on 12/19/18at 23:57; Start 12/19/18 at 18:15; Stop 12/20/18 at 04:40; Status DC Morphine Sulfate (Morphine Sulfate) 4 mg PRN Q1HR PRN IV PAIN Last administered on 12/19/18at 21:21; Start 12/19/18 at 18:15 Hydrocortisone Sodium Succinate (Solu-CORTEF) 100 mg Q8HRS IV Last administered on 12/20/18at 06:00; Start 12/19/18 at 22:00 Hydrocortisone Sodium Succinate (Solu-Cortef) 300 mg 1X ONCE IV ; Start 12/19/18 at 17:00; Stop 12/19/18 at 18:08; Status DC Vancomycin HCl 1 gm/Sodium Chloride 250 ml @ 250 mls/hr 1X ONCE IV ; Start 12/19/18 at 17:00; Stop 12/19/18 at 18:08; Status DC Phenylephrine HCl 20 mg/Sodium Chloride 252 ml @ 22.68 mls/ hr CONT PRN IV SEE I/O RECORD Last administered on 12/19/18at 23:57; Start 12/19/18 at 20:00; Stop 12/20/18 at 02:00; Status DC Lidocaine HCl (Xylocaine-Mpf 1% 5ml Vial) 5 ml STK-MED ONCE .ROUTE ; Start 12/19 at 19:58; Stop 12/19/18 at 19:59; Status DC Midazolam HCl 100 ml @ 0 mls/hr CONT PRN IV SEE PROTOCOL Last administered on 12/20/18at 12:34; Start 12/19/18 at 20:30 Sodium Bicarbonate 150 meq/Dextrose 1,150 ml @ 75 mls/hr [id number] IV Last administered on 12/20/18at 09:03; Start 12/19/18 at 21:00 Meropenem 500 mg/ Sodium Chloride 50 ml @ 100 mls/hr Q8HRS IV Last administered on 12/20/18at 05:21; Start 12/19/18 at 22:00 Linezolid/Dextrose 300 ml @ 300 mls/hr Q12HR IV Last administered on 12/20/18at 08:46; Start 12/20/18 at 09:00 Linezolid/Dextrose 300 ml @ 300 mls/hr 1X ONCE IV Last administered on 12/19/18at 22:42; Start 12/19/18 at 22:00; Stop 12/19/18 at 22:59; Status DC Iohexol (Omnipaque 240 Mg/ml) 30 ml 1X ONCE PO ; Start 12/20/18 at 00:00; Stop 12/20/18 at 00:01; Status Cancel Info (CONTRAST GIVEN -- Rx MONITORING) 1 each PRN DAILY PRN MC SEE COMMENTS; Start 12/19/18 at 23:45; Stop 12/21/18 at 23:44; Status Cancel Sodium Bicarbonate (Sodium Bicarb Adult 8.4% Syr) 100 meq 1X ONCE IV Last administered on 12/19/18at 23:52; Start 12/20/18 at 00:00; Stop 12/20/18 at 00:01; Status DC Digoxin (Lanoxin) 500 mcg 1X ONCE IV Last administered on 12/20/18at 01:11; Start 12/20/18 at 01:30; Stop 12/20/18 at 01:31; Status DC Phenylephrine HCl 80 mg/Sodium Chloride 258 ml @ 9.67 mls/hr CONT PRN IV SEE I/O RECORD Last administered on 12/20/18at 11:14; Start 12/20/18 at 01:45 Norepinephrine Bitartrate 32 mg/ Sodium Chloride 250 ml @ 0.46 mls/hr CONT PRN IV SEE I/O RECORD Last administered on 12/20/18at 05:21; Start 12/20/18 at 04:45 Sodium Bicarbonate (Sodium Bicarb Adult 8.4% Syr) 50 meq STK-MED ONCE .ROUTE ; Start 12/20/18 at 06:43; Stop 12/20/18 at 06:44; Status DC Epinephrine HCl 4 mg/Sodium Chloride 254 ml @ 31.1 mls/hr CONT PRN IV SEE I/O RECORD Last administered on 12/20/18at 06:56; Start 12/20/18 at 07:00 Sodium Bicarbonate (Sodium Bicarb Adult 8.4% Syr) 150 meq 1X ONCE IV Last administered on 12/20/18at 06:48; Start 12/20/18 at 07:00; Stop 12/20/18 at 07:01; Status DC Calcium Chloride (Calcium Chloride) 1,000 mg 1X ONCE IV Last administered on 12/20/18at 07:20; Start 12/20/18 at 07:00; Stop 12/20/18 at 07:01; Status DC Phytonadione 10 mg/Dextrose 51 ml @ 102 mls/hr 1X ONCE IV Last administered on 12/20/18at 07:11; Start 12/20/18 at 07:30; Stop 12/20/18 at 07:59; Status DC Sodium Bicarbonate (Sodium Bicarb Adult 8.4% Syr) 100 meq 1X ONCE IV Last administered on 12/20/18at 09:58; Start 12/20/18 at 09:45; Stop 12/20/18 at 09:46; Status DC Famotidine (Pepcid Vial) 20 mg DAILY IVP ; Start 12/20/18 at 10:30 Propofol (Diprivan) 1,000 mg STK-MED ONCE IV ; Start 12/19/18 at 21:00; Stop 12/20/18 at 12:46; Status DC Succinylcholine Chloride (Anectine) 200 mg STK-MED ONCE .ROUTE ; Start 12/19/18 at 21:00; Stop 12/20/18 at 12:46; Status DC Phytonadione 10 mg/Dextrose 51 ml @ 102 mls/hr 1X ONCE IV ; Start 12/20/18 at 13:00; Stop 12/20/18 at 13:29 Active Scripts Active Ativan (Lorazepam) 0.5 Mg Tablet 0.5 Mg PO PRN Q6HRS PRN 15 Days Polyethylene Glycol 3350 17 Gm Powd.pack 17 Gm PO PRN DAILY PRN 30 Days Colace (Docusate Sodium) 100 Mg Capsule 100 Mg PO PRN BID PRN 30 Days Culturelle (Lactobacillus Rhamnosus Gg) 1 Each Cap.sprink 1 Cap PO BID 7 Days Hydrocodone-Apap 5-325 (Hydrocodone Bit/Acetaminophen) 1 Tab Tablet 1 Tab PO PRN Q6HRS PRN 6 Days Tylenol (Acetaminophen) 325 Mg Tablet 650 Mg PO PRN Q4HRS PRN 30 Days Catapres (Clonidine Hcl) 0.1 Mg Tablet 0.1 Mg PO PRN Q6HRS PRN 30 Days SBP > 160 or DBP > 90 Proair Hfa (Albuterol Sulfate) 8.5 Gm Hfa.aer.ad 2.5 Mg NEB PRN Q4HRS PRN 30 Days Cozaar (Losartan Potassium) 50 Mg Tablet 100 Mg PO DAILY 30 Days Carafate (Sucralfate) 1 Gm Tablet 1 Gm PO QIDACHS [Pantoprazole] 40 MG Tablet.dr 40 Mg PO BIDAC Reported Carvedilol (Carvedilol) 3.125 Mg Tablet 3.125 Mg PO BIDWMEALS Xarelto (Rivaroxaban) 20 Mg Tablet 20 Mg PO DAILY Latuda (Lurasidone Hcl) 40 Mg Tablet 40 Mg PO DAILY Vitamin D3 (Cholecalciferol (Vitamin D3)) 50,000 Unit Capsule 50,000 Unit PO WEEKLY Folic Acid 1 Mg Tablet 1 Mg PO DAILY Magnesium Oxide 400 Mg Tablet 250 Mg PO DAILY Allergies Allergies: Coded Allergies: banana (Verified Allergy, Severe, SWELLING TO MOUTH AND TONGUE, 04/20/18) cephalexin (Verified Allergy, Severe, "SWELLING TO MOUTH", 12/19/18) Tolerates merrem shrimp (Verified Allergy, Severe, SWELLING TO MOUTH AND TONGUE, 04/20/18) fentanyl (Verified Allergy, Intermediate, 07/02/18) I S O L A T I O N *CONTACT* (Verified Allergy, Unknown, 11/10/18) ESBL Vitals VITALS Vital Signs Date Time Temp Pulse Resp B/P (MAP) Pulse Ox O2 Delivery O2 Flow Rate FiO2 12/20/18 12:18 Ventilator 12/20/18 12:16 97.5 29 29 70/50 97.5 12/19/18 23:00 100 Labs Labs Laboratory Tests Test 12/19/18 13:50 12/19/18 15:15 12/19/18 17:50 12/19/18 20:15 White Blood Count 7.5 x10^3/uL (4.0-11.0) 5.7 x10^3/uL (4.0-11.0) Red Blood Count 3.10 x10^6/uL (3.50-5.40) 2.55 x10^6/uL (3.50-5.40) Hemoglobin 10.0 g/dL (12.0-15.5) 8.3 g/dL (12.0-15.5) Hematocrit 31.5 % (36.0-47.0) 26.7 % (36.0-47.0) Mean Corpuscular Volume 102 fL (79-100) 105 fL (79-100) Mean Corpuscular Hemoglobin 32 pg (25-35) 32 pg (25-35) Mean Corpuscular Hemoglobin Concent 32 g/dL (31-37) 31 g/dL (31-37) Red Cell Distribution Width 17.6 % (11.5-14.5) 17.3 % (11.5-14.5) Platelet Count 454 x10^3/uL (140-400) 475 x10^3/uL (140-400) Neutrophils (%) (Auto) 63 % (31-73) 78 % (31-73) Lymphocytes (%) (Auto) 30 % (24-48) 15 % (24-48) Monocytes (%) (Auto) 7 % (0-9) 4 % (0-9) Eosinophils (%) (Auto) 0 % (0-3) 1 % (0-3) Basophils (%) (Auto) 1 % (0-3) 0 % (0-3) Neutrophils # (Auto) 4.8 x10^3uL (1.8-7.7) 4.5 x10^3uL (1.8-7.7) Lymphocytes # (Auto) 2.2 x10^3/uL (1.0-4.8) 0.9 x10^3/uL (1.0-4.8) Monocytes # (Auto) 0.5 x10^3/uL (0.0-1.1) 0.3 x10^3/uL (0.0-1.1) Eosinophils # (Auto) 0.0 x10^3/uL (0.0-0.7) 0.1 x10^3/uL (0.0-0.7) Basophils # (Auto) 0.0 x10^3/uL (0.0-0.2) 0.0 x10^3/uL (0.0-0.2) Prothrombin Time 53.3 SEC (11.7-14.0) Prothromb Time International Ratio 5.9 (0.8-1.1) Activated Partial Thromboplast Time 143 SEC (24-38) Sodium Level 137 mmol/L (136-145) 141 mmol/L (136-145) Potassium Level 5.2 mmol/L (3.5-5.1) 5.0 mmol/L (3.5-5.1) Chloride Level 107 mmol/L (98-107) 114 mmol/L (98-107) Carbon Dioxide Level 13 mmol/L (21-32) 9 mmol/L (21-32) Anion Gap 17 (6-14) 18 (6-14) Blood Urea Nitrogen 18 mg/dL (7-20) 16 mg/dL (7-20) Creatinine 1.9 mg/dL (0.6-1.0) 1.5 mg/dL (0.6-1.0) Estimated GFR (Cockcroft-Gault) 34.6 45.4 BUN/Creatinine Ratio 9 (6-20) Glucose Level 157 mg/dL (70-99) 159 mg/dL (70-99) Lactic Acid Level 5.9 mmol/L (0.4-2.0) 5.2 mmol/L (0.4-2.0) Calcium Level 8.4 mg/dL (8.5-10.1) 7.1 mg/dL (8.5-10.1) Magnesium Level 1.8 mg/dL (1.8-2.4) Total Bilirubin 3.8 mg/dL (0.2-1.0) 3.2 mg/dL (0.2-1.0) Aspartate Amino Transf (AST/SGOT) 77 U/L (15-37) 59 U/L (15-37) Alanine Aminotransferase (ALT/SGPT) 58 U/L (14-59) 45 U/L (14-59) Alkaline Phosphatase 98 U/L (46-116) 75 U/L (46-116) Creatine Kinase 201 U/L (26-192) 242 U/L (26-192) Creatine Kinase MB (Mass) 2.9 ng/mL (0.0-3.6) 3.2 ng/mL (0.0-3.6) Creatine Kinase MB Relative Index 1.4 % (0-4) 1.3 % (0-4) Troponin I Quantitative < 0.017 ng/mL (0.000-0.055) 0.047 ng/mL (0.000-0.055) Total Protein 5.4 g/dL (6.4-8.2) 4.1 g/dL (6.4-8.2) Albumin 1.7 g/dL (3.4-5.0) 1.3 g/dL (3.4-5.0) Albumin/Globulin Ratio 0.5 (1.0-1.7) Urine Collection Type Unknown Urine Color Red Urine Clarity Clear Urine pH 5.5 Urine Specific [place] 1.025 Urine Protein Negative mg/dL (NEG-TRACE) Urine Glucose (UA) Negative mg/dL (NEG) Urine Ketones (Stick) Trace mg/dL (NEG) Urine Blood Negative (NEG) Urine Nitrite Positive (NEG) Urine Bilirubin Large (NEG) Urine Urobilinogen Dipstick 4.0 mg/dL (0.2 mg/dL) Urine Leukocyte Esterase Small (NEG) Urine RBC 0 /HPF (0-2) Urine WBC 5-10 /HPF (0-4) Urine Squamous Epithelial Cells None /LPF Urine Bacteria 0 /HPF (0-FEW) Urine Hyaline Casts Many /HPF Urine Mucus Mod /LPF Direct Bilirubin 2.8 mg/dL (0.0-0.2) Ammonia 129 mcmol/L (11-34) Segmented Neutrophils % 57 % (35-66) Band Neutrophils % 21 % (0-9) Lymphocytes % 10 % (24-48) Monocytes % 5 % (0-10) Metamyelocytes % 7 % (0-0) Nucleated Red Blood Cells 4 Toxic Vacuolation Slight Platelet Estimate Adequate (ADEQUATE) Polychromasia Occasional Anisocytosis Slight Microcytosis Slight Test 12/19/18 20:18 12/19/18 23:28 12/20/18 00:35 12/20/18 05:40 O2 Saturation 94 % (92-99) 97 % (92-99) 98 % (92-99) Arterial Blood pH 7.19 (7.35-7.45) 6.92 (7.35-7.45) 7.10 (7.35-7.45) Arterial Blood pCO2 at Patient Temp 20 mmHg (35-46) 20 mmHg (35-46) 18 mmHg (35-46) Arterial Blood pO2 at Patient Temp 91 mmHg (75-108) 149 mmHg (75-108) 149 mmHg (75-108) Arterial Blood HCO3 8 mmol/L (21-28) 4 mmol/L (21-28) 5 mmol/L (21-28) Arterial Blood Base Excess -19 mmol/L (-3-3) -27 mmol/L (-3-3) -22 mmol/L (-3-3) FiO2 21 30 30 White Blood Count 10.7 x10^3/uL (4.0-11.0) Red Blood Count 1.37 x10^6/uL (3.50-5.40) Hemoglobin 4.6 g/dL (12.0-15.5) Hematocrit 16.4 % (36.0-47.0) Mean Corpuscular Volume 120 fL (79-100) Mean Corpuscular Hemoglobin 33 pg (25-35) Mean Corpuscular Hemoglobin Concent 28 g/dL (31-37) Red Cell Distribution Width 17.8 % (11.5-14.5) Platelet Count 308 x10^3/uL (140-400) Neutrophils (%) (Auto) 64 % (31-73) Lymphocytes (%) (Auto) 32 % (24-48) Monocytes (%) (Auto) 3 % (0-9) Eosinophils (%) (Auto) 2 % (0-3) Basophils (%) (Auto) 0 % (0-3) Neutrophils # (Auto) 6.9 x10^3uL (1.8-7.7) Lymphocytes # (Auto) 3.4 x10^3/uL (1.0-4.8) Monocytes # (Auto) 0.3 x10^3/uL (0.0-1.1) Eosinophils # (Auto) 0.2 x10^3/uL (0.0-0.7) Basophils # (Auto) 0.0 x10^3/uL (0.0-0.2) Sodium Level 141 mmol/L (136-145) Potassium Level 6.2 mmol/L (3.5-5.1) Chloride Level 111 mmol/L (98-107) Carbon Dioxide Level < 5 mmol/L (21-32) Anion Gap (6-14) Blood Urea Nitrogen 17 mg/dL (7-20) Creatinine 2.0 mg/dL (0.6-1.0) Estimated GFR (Cockcroft-Gault) 32.6 Glucose Level 185 mg/dL (70-99) Lactic Acid Level 19.7 mmol/L (0.4-2.0) Calcium Level 6.7 mg/dL (8.5-10.1) Total Bilirubin 2.0 mg/dL (0.2-1.0) Direct Bilirubin 1.7 mg/dL (0.0-0.2) Aspartate Amino Transf (AST/SGOT) 166 U/L (15-37) Alanine Aminotransferase (ALT/SGPT) 42 U/L (14-59) Alkaline Phosphatase 94 U/L (46-116) Total Protein 2.9 g/dL (6.4-8.2) Albumin 0.7 g/dL (3.4-5.0) Test 12/20/18 06:45 12/20/18 09:00 12/20/18 09:01 12/20/18 10:20 Prothrombin Time > 120.0 SEC (11.7-14.0) 85.1 SEC (11.7-14.0) Prothromb Time International Ratio > 15.0 (0.8-1.1) 10.6 (0.8-1.1) Activated Partial Thromboplast Time > 150 SEC (24-38) O2 Saturation 98 % (92-99) Arterial Blood pH 6.99 (7.35-7.45) Arterial Blood pH (Temp corrected) 7.01 Arterial Blood pCO2 at Patient Temp 20 mmHg (35-46) Arterial Blood pCO2 (Temp correct) 19 mmHg Arterial Blood pO2 at Patient Temp 136 mmHg (75-108) Arterial Blood pO2 (Temp corrected) 124 mmHg Arterial Blood HCO3 5 mmol/L (21-28) Arterial Blood Base Excess -25 mmol/L (-3-3) Glucose (Fingerstick) 193 mg/dL (70-99) White Blood Count 10.7 x10^3/uL (4.0-11.0) Red Blood Count 3.22 x10^6/uL (3.50-5.40) Hemoglobin 9.5 g/dL (12.0-15.5) Hematocrit 29.3 % (36.0-47.0) Mean Corpuscular Volume 91 fL (79-100) Mean Corpuscular Hemoglobin 30 pg (25-35) Mean Corpuscular Hemoglobin Concent 33 g/dL (31-37) Red Cell Distribution Width 17.6 % (11.5-14.5) Platelet Count 144 x10^3/uL (140-400) Neutrophils (%) (Auto) 61 % (31-73) Lymphocytes (%) (Auto) 36 % (24-48) Monocytes (%) (Auto) 2 % (0-9) Eosinophils (%) (Auto) 1 % (0-3) Basophils (%) (Auto) 1 % (0-3) Neutrophils # (Auto) 6.5 x10^3uL (1.8-7.7) Lymphocytes # (Auto) 3.8 x10^3/uL (1.0-4.8) Monocytes # (Auto) 0.2 x10^3/uL (0.0-1.1) Eosinophils # (Auto) 0.1 x10^3/uL (0.0-0.7) Basophils # (Auto) 0.1 x10^3/uL (0.0-0.2) Fibrinogen 208 mg/dL (200-440) Sodium Level 149 mmol/L (136-145) Potassium Level 4.5 mmol/L (3.5-5.1) Chloride Level 110 mmol/L (98-107) Carbon Dioxide Level 10 mmol/L (21-32) Anion Gap 29 (6-14) Blood Urea Nitrogen 16 mg/dL (7-20) Creatinine 1.8 mg/dL (0.6-1.0) Estimated GFR (Cockcroft-Gault) 36.8 BUN/Creatinine Ratio 9 (6-20) Glucose Level 227 mg/dL (70-99) Calcium Level 7.0 mg/dL (8.5-10.1) Total Bilirubin 2.5 mg/dL (0.2-1.0) Aspartate Amino Transf (AST/SGOT) 466 U/L (15-37) Alanine Aminotransferase (ALT/SGPT) 79 U/L (14-59) Alkaline Phosphatase 93 U/L (46-116) Total Protein 4.0 g/dL (6.4-8.2) Albumin 1.6 g/dL (3.4-5.0) Albumin/Globulin Ratio 0.7 (1.0-1.7) Test 12/20/18 11:35 12/20/18 11:38 White Blood Count 8.6 x10^3/uL (4.0-11.0) Red Blood Count 3.47 x10^6/uL (3.50-5.40) Hemoglobin 10.2 g/dL (12.0-15.5) Hematocrit 31.4 % (36.0-47.0) Mean Corpuscular Volume 90 fL (79-100) Mean Corpuscular Hemoglobin 30 pg (25-35) Mean Corpuscular Hemoglobin Concent 33 g/dL (31-37) Red Cell Distribution Width 17.8 % (11.5-14.5) Platelet Count 138 x10^3/uL (140-400) Glucose (Fingerstick) 179 mg/dL (70-99) Laboratory Tests Test 12/19/18 13:50 12/19/18 15:15 12/19/18 17:50 12/19/18 20:15 White Blood Count 7.5 x10^3/uL (4.0-11.0) 5.7 x10^3/uL (4.0-11.0) Red Blood Count 3.10 x10^6/uL (3.50-5.40) 2.55 x10^6/uL (3.50-5.40) Hemoglobin 10.0 g/dL (12.0-15.5) 8.3 g/dL (12.0-15.5) Hematocrit 31.5 % (36.0-47.0) 26.7 % (36.0-47.0) Mean Corpuscular Volume 102 fL (79-100) 105 fL (79-100) Mean Corpuscular Hemoglobin 32 pg (25-35) 32 pg (25-35) Mean Corpuscular Hemoglobin Concent 32 g/dL (31-37) 31 g/dL (31-37) Red Cell Distribution Width 17.6 % (11.5-14.5) 17.3 % (11.5-14.5) Platelet Count 454 x10^3/uL (140-400) 475 x10^3/uL (140-400) Neutrophils (%) (Auto) 63 % (31-73) 78 % (31-73) Lymphocytes (%) (Auto) 30 % (24-48) 15 % (24-48) Monocytes (%) (Auto) 7 % (0-9) 4 % (0-9) Eosinophils (%) (Auto) 0 % (0-3) 1 % (0-3) Basophils (%) (Auto) 1 % (0-3) 0 % (0-3) Neutrophils # (Auto) 4.8 x10^3uL (1.8-7.7) 4.5 x10^3uL (1.8-7.7) Lymphocytes # (Auto) 2.2 x10^3/uL (1.0-4.8) 0.9 x10^3/uL (1.0-4.8) Monocytes # (Auto) 0.5 x10^3/uL (0.0-1.1) 0.3 x10^3/uL (0.0-1.1) Eosinophils # (Auto) 0.0 x10^3/uL (0.0-0.7) 0.1 x10^3/uL (0.0-0.7) Basophils # (Auto) 0.0 x10^3/uL (0.0-0.2) 0.0 x10^3/uL (0.0-0.2) Prothrombin Time 53.3 SEC (11.7-14.0) Prothromb Time International Ratio 5.9 (0.8-1.1) Activated Partial Thromboplast Time 143 SEC (24-38) Sodium Level 137 mmol/L (136-145) 141 mmol/L (136-145) Potassium Level 5.2 mmol/L (3.5-5.1) 5.0 mmol/L (3.5-5.1) Chloride Level 107 mmol/L (98-107) 114 mmol/L (98-107) Carbon Dioxide Level 13 mmol/L (21-32) 9 mmol/L (21-32) Anion Gap 17 (6-14) 18 (6-14) Blood Urea Nitrogen 18 mg/dL (7-20) 16 mg/dL (7-20) Creatinine 1.9 mg/dL (0.6-1.0) 1.5 mg/dL (0.6-1.0) Estimated GFR (Cockcroft-Gault) 34.6 45.4 BUN/Creatinine Ratio 9 (6-20) Glucose Level 157 mg/dL (70-99) 159 mg/dL (70-99) Lactic Acid Level 5.9 mmol/L (0.4-2.0) 5.2 mmol/L (0.4-2.0) Calcium Level 8.4 mg/dL (8.5-10.1) 7.1 mg/dL (8.5-10.1) Magnesium Level 1.8 mg/dL (1.8-2.4) Total Bilirubin 3.8 mg/dL (0.2-1.0) 3.2 mg/dL (0.2-1.0) Aspartate Amino Transf (AST/SGOT) 77 U/L (15-37) 59 U/L (15-37) Alanine Aminotransferase (ALT/SGPT) 58 U/L (14-59) 45 U/L (14-59) Alkaline Phosphatase 98 U/L (46-116) 75 U/L (46-116) Creatine Kinase 201 U/L (26-192) 242 U/L (26-192) Creatine Kinase MB (Mass) 2.9 ng/mL (0.0-3.6) 3.2 ng/mL (0.0-3.6) Creatine Kinase MB Relative Index 1.4 % (0-4) 1.3 % (0-4) Troponin I Quantitative < 0.017 ng/mL (0.000-0.055) 0.047 ng/mL (0.000-0.055) Total Protein 5.4 g/dL (6.4-8.2) 4.1 g/dL (6.4-8.2) Albumin 1.7 g/dL (3.4-5.0) 1.3 g/dL (3.4-5.0) Albumin/Globulin Ratio 0.5 (1.0-1.7) Urine Collection Type Unknown Urine Color Red Urine Clarity Clear Urine pH 5.5 Urine Specific [place] 1.025 Urine Protein Negative mg/dL (NEG-TRACE) Urine Glucose (UA) Negative mg/dL (NEG) Urine Ketones (Stick) Trace mg/dL (NEG) Urine Blood Negative (NEG) Urine Nitrite Positive (NEG) Urine Bilirubin Large (NEG) Urine Urobilinogen Dipstick 4.0 mg/dL (0.2 mg/dL) Urine Leukocyte Esterase Small (NEG) Urine RBC 0 /HPF (0-2) Urine WBC 5-10 /HPF (0-4) Urine Squamous Epithelial Cells None /LPF Urine Bacteria 0 /HPF (0-FEW) Urine Hyaline Casts Many /HPF Urine Mucus Mod /LPF Direct Bilirubin 2.8 mg/dL (0.0-0.2) Ammonia 129 mcmol/L (11-34) Segmented Neutrophils % 57 % (35-66) Band Neutrophils % 21 % (0-9) Lymphocytes % 10 % (24-48) Monocytes % 5 % (0-10) Metamyelocytes % 7 % (0-0) Nucleated Red Blood Cells 4 Toxic Vacuolation Slight Platelet Estimate Adequate (ADEQUATE) Polychromasia Occasional Anisocytosis Slight Microcytosis Slight Test 12/19/18 20:18 12/19/18 23:28 12/20/18 00:35 12/20/18 05:40 O2 Saturation 94 % (92-99) 97 % (92-99) 98 % (92-99) Arterial Blood pH 7.19 (7.35-7.45) 6.92 (7.35-7.45) 7.10 (7.35-7.45) Arterial Blood pCO2 at Patient Temp 20 mmHg (35-46) 20 mmHg (35-46) 18 mmHg (35-46) Arterial Blood pO2 at Patient Temp 91 mmHg (75-108) 149 mmHg (75-108) 149 mmHg (75-108) Arterial Blood HCO3 8 mmol/L (21-28) 4 mmol/L (21-28) 5 mmol/L (21-28) Arterial Blood Base Excess -19 mmol/L (-3-3) -27 mmol/L (-3-3) -22 mmol/L (-3-3) FiO2 21 30 30 White Blood Count 10.7 x10^3/uL (4.0-11.0) Red Blood Count 1.37 x10^6/uL (3.50-5.40) Hemoglobin 4.6 g/dL (12.0-15.5) Hematocrit 16.4 % (36.0-47.0) Mean Corpuscular Volume 120 fL (79-100) Mean Corpuscular Hemoglobin 33 pg (25-35) Mean Corpuscular Hemoglobin Concent 28 g/dL (31-37) Red Cell Distribution Width 17.8 % (11.5-14.5) Platelet Count 308 x10^3/uL (140-400) Neutrophils (%) (Auto) 64 % (31-73) Lymphocytes (%) (Auto) 32 % (24-48) Monocytes (%) (Auto) 3 % (0-9) Eosinophils (%) (Auto) 2 % (0-3) Basophils (%) (Auto) 0 % (0-3) Neutrophils # (Auto) 6.9 x10^3uL (1.8-7.7) Lymphocytes # (Auto) 3.4 x10^3/uL (1.0-4.8) Monocytes # (Auto) 0.3 x10^3/uL (0.0-1.1) Eosinophils # (Auto) 0.2 x10^3/uL (0.0-0.7) Basophils # (Auto) 0.0 x10^3/uL (0.0-0.2) Sodium Level 141 mmol/L (136-145) Potassium Level 6.2 mmol/L (3.5-5.1) Chloride Level 111 mmol/L (98-107) Carbon Dioxide Level < 5 mmol/L (21-32) Anion Gap (6-14) Blood Urea Nitrogen 17 mg/dL (7-20) Creatinine 2.0 mg/dL (0.6-1.0) Estimated GFR (Cockcroft-Gault) 32.6 Glucose Level 185 mg/dL (70-99) Lactic Acid Level 19.7 mmol/L (0.4-2.0) Calcium Level 6.7 mg/dL (8.5-10.1) Total Bilirubin 2.0 mg/dL (0.2-1.0) Direct Bilirubin 1.7 mg/dL (0.0-0.2) Aspartate Amino Transf (AST/SGOT) 166 U/L (15-37) Alanine Aminotransferase (ALT/SGPT) 42 U/L (14-59) Alkaline Phosphatase 94 U/L (46-116) Total Protein 2.9 g/dL (6.4-8.2) Albumin 0.7 g/dL (3.4-5.0) Test 12/20/18 06:45 12/20/18 09:00 12/20/18 09:01 12/20/18 10:20 Prothrombin Time > 120.0 SEC (11.7-14.0) 85.1 SEC (11.7-14.0) Prothromb Time International Ratio > 15.0 (0.8-1.1) 10.6 (0.8-1.1) Activated Partial Thromboplast Time > 150 SEC (24-38) O2 Saturation 98 % (92-99) Arterial Blood pH 6.99 (7.35-7.45) Arterial Blood pH (Temp corrected) 7.01 Arterial Blood pCO2 at Patient Temp 20 mmHg (35-46) Arterial Blood pCO2 (Temp correct) 19 mmHg Arterial Blood pO2 at Patient Temp 136 mmHg (75-108) Arterial Blood pO2 (Temp corrected) 124 mmHg Arterial Blood HCO3 5 mmol/L (21-28) Arterial Blood Base Excess -25 mmol/L (-3-3) Glucose (Fingerstick) 193 mg/dL (70-99) White Blood Count 10.7 x10^3/uL (4.0-11.0) Red Blood Count 3.22 x10^6/uL (3.50-5.40) Hemoglobin 9.5 g/dL (12.0-15.5) Hematocrit 29.3 % (36.0-47.0) Mean Corpuscular Volume 91 fL (79-100) Mean Corpuscular Hemoglobin 30 pg (25-35) Mean Corpuscular Hemoglobin Concent 33 g/dL (31-37) Red Cell Distribution Width 17.6 % (11.5-14.5) Platelet Count 144 x10^3/uL (140-400) Neutrophils (%) (Auto) 61 % (31-73) Lymphocytes (%) (Auto) 36 % (24-48) Monocytes (%) (Auto) 2 % (0-9) Eosinophils (%) (Auto) 1 % (0-3) Basophils (%) (Auto) 1 % (0-3) Neutrophils # (Auto) 6.5 x10^3uL (1.8-7.7) Lymphocytes # (Auto) 3.8 x10^3/uL (1.0-4.8) Monocytes # (Auto) 0.2 x10^3/uL (0.0-1.1) Eosinophils # (Auto) 0.1 x10^3/uL (0.0-0.7) Basophils # (Auto) 0.1 x10^3/uL (0.0-0.2) Fibrinogen 208 mg/dL (200-440) Sodium Level 149 mmol/L (136-145) Potassium Level 4.5 mmol/L (3.5-5.1) Chloride Level 110 mmol/L (98-107) Carbon Dioxide Level 10 mmol/L (21-32) Anion Gap 29 (6-14) Blood Urea Nitrogen 16 mg/dL (7-20) Creatinine 1.8 mg/dL (0.6-1.0) Estimated GFR (Cockcroft-Gault) 36.8 BUN/Creatinine Ratio 9 (6-20) Glucose Level 227 mg/dL (70-99) Calcium Level 7.0 mg/dL (8.5-10.1) Total Bilirubin 2.5 mg/dL (0.2-1.0) Aspartate Amino Transf (AST/SGOT) 466 U/L (15-37) Alanine Aminotransferase (ALT/SGPT) 79 U/L (14-59) Alkaline Phosphatase 93 U/L (46-116) Total Protein 4.0 g/dL (6.4-8.2) Albumin 1.6 g/dL (3.4-5.0) Albumin/Globulin Ratio 0.7 (1.0-1.7) Test 12/20/18 11:35 12/20/18 11:38 White Blood Count 8.6 x10^3/uL (4.0-11.0) Red Blood Count 3.47 x10^6/uL (3.50-5.40) Hemoglobin 10.2 g/dL (12.0-15.5) Hematocrit 31.4 % (36.0-47.0) Mean Corpuscular Volume 90 fL (79-100) Mean Corpuscular Hemoglobin 30 pg (25-35) Mean Corpuscular Hemoglobin Concent 33 g/dL (31-37) Red Cell Distribution Width 17.8 % (11.5-14.5) Platelet Count 138 x10^3/uL (140-400) Glucose (Fingerstick) 179 mg/dL (70-99) JESSICA ABREU MD December 20, 2018 13:08
--- NOTE | 2018-12-20 13:14 | NUR ---
Wound care: Attempted to see patient per wound care. Spoke with RN at this time, patient too unstable at this time. No need for wound care at this time. Will follow up for possible changes tomorrow.
[2018-12-20 13:28] LABS: ALBUMIN 1.5 g/dL (3.4-5.0); BASO % 1 % (0-3); CALCIUM 6.7 mg/dL (8.5-10.1); CREATININE 1.8 mg/dL (0.6-1.0); EOS # 0.2 x10^3/uL (0.0-0.7); EOS % 3 % (0-3); GFR 36.8; HEMATOCRIT 40.5 % (36.0-47.0); HEMOGLOBIN 12.8 g/dL (12.0-15.5); LYMPH # 2.9 x10^3/uL (1.0-4.8); LYMPH % 34 % (24-48); MEAN CORPUSCULAR HEMOGLOBIN 28 pg (25-35); MEAN CORPUSCULAR HGB CONC 32 g/dL (31-37); MEAN CORPUSCULAR VOLUME 87 fL (79-100); MONO # 0.2 x10^3/uL (0.0-1.1); MONO % 3 % (0-9); NEUT # 5.3 x10^3uL (1.8-7.7); NEUT % 61 % (31-73); PHOSPHORUS 6.4 mg/dL (2.6-4.7); PLATELET COUNT 104 x10^3/uL (140-400); POTASSIUM 4.7 mmol/L (3.5-5.1); RED BLOOD COUNT 4.65 x10^6/uL (3.50-5.40); RED CELL DISTRIBUTION WIDTH 16.7 % (11.5-14.5); WHITE BLOOD COUNT 8.8 x10^3/uL (4.0-11.0)
[2018-12-20 13:54] LABS: PROTHROMBIN TIME PATIENT 85.2 SEC (11.7-14.0)
[2018-12-20 14:07] LABS: D-DIMER 2.09 ug/mlFEU (0.00-0.50)
--- NOTE | 2018-12-20 14:25 | PDOC2 ---
PALLIATIVE CARE Palliative Care Note Palliative Care Consult requested by Dr. Pedroza to address goals of care. Medical Assessment per medical record; Septic shock Bowel perforation - too unstable for CT, free air noted on KUB Anemia - 4u PRBC Coagulopathy - hx of PE INR supratherapeutic - 4 units FFP ordered Transaminitis most likely secondary to steatohepatitis noted previously - now appears to be due to septic shock Chest pain acute coronary syndrome ruled out previously H/O MDRO - e. coli UTI: 5-10WBC, positive nitrite and LE - Merrem 10 days History of pulmonary embolism last year Old thrombus noted, back on anticoagulation - now with supratherapeutic INR linear filling defects in the bilateral pulmonary arteries which could be secondary to old recanalized embolus. 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 30%; does not overbreathe the vent per RT. 4 pressors, Blood Transfusions 68/64--HR 155 Met with Zaheer and daughter (pt's daughter) Lisa; Included Mother Keli ([phone]) per phone. Patient has 3 other children that also live in [place]. Family leaving [place] in am to come to . Reviewed above information with family. Zaheer states they have been 3 years. Her second marriage. 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 Work: did not work outside the home. enjoyed TV; movies. Discussed goals of care; Zaheer states he wanted everything done to "get her better" has had multiple conversation with physician prior to this meeting. Discussed code status including risks and benefits; risk of chest compressions. Acknowledged understand and wishes to continue "everything" Informed patient is not a surgical candidate and full aggressive care is being done. Plan; Full Code Full Aggressive Care SOSA MASSEY December 20, 2018 14:25
--- NOTE | 2018-12-20 15:00 | NUR ---
Manual cuff with doppler BP 60's sys. 150HR. Last Hgb level 12. Titrating up Epi gtt. aware of declining status stated call me if she turns for worse. Told him she would probably decline shortly. He left anyway after confucianism people here. No otherfamily at bedside. Remains on Levo, Vaso, Epi and Ronald gtts. Total 6UPRBC and 4FFP today. Seen by Dr Shukri cuenca.
--- NOTE | 2018-12-20 20:48 | PDOC5 ---
CODE REPORT CODE REPORT I was called to the code at 840 pm, arrived 842 pm. talked to monica at 842 pm, said already maxed out on multiple pressors everything possible has been done. would do 1-2 rounds and if asystole/pea, call the code. we gave epi we did cpr we gave bicarb 845 pm, asystole, no pulse code called. CRYSTAL Bell MD December 20, 2018 20:48
--- NOTE | 2018-12-20 21:33 | NUR ---
called to bedside at 2029 due to rhythm changes. Patient rhythm PEA at 2039, code blue called and compressions initiated. See code blue sheet. Dr. Fisher spoke with Dr. Gonzalez about patient, called time of at 2044. , Zaheer, at bedside at 2049. Physicians and [facility] notified of cardiac time of .
--- NOTE | 2018-12-20 21:39 | PDOC3 ---
Discharge Summary Visit Information Date of Admission: Dec 19, 2018 Date of Discharge: December 20, 2018 Admitting Diagnosis: Septic shock, hypoxic respiratory failure Final Diagnosis Pneumoperitoneum, septic shock Brief Hospital Course Allergies Allergies Coded Allergies Type Severity Reaction Last Updated Verified banana Allergy Severe SWELLING TO MOUTH AND TONGUE 04/20/18 Yes cephalexin Allergy Severe "SWELLING TO MOUTH" 12/19/18 Yes shrimp Allergy Severe SWELLING TO MOUTH AND TONGUE 04/20/18 Yes fentanyl Allergy Intermediate 07/02/18 Yes I S O L A T I O N *CONTACT* Allergy Unknown 11/10/18 Yes Vital Signs Vital Signs Date Time Temp Pulse Resp B/P (MAP) Pulse Ox O2 Delivery O2 Flow Rate FiO2 12/20/18 20:03 Ventilator 12/20/18 20:00 96 26 12/20/18 16:15 99.3 99.3 12/19/18 23:00 100 Lab Results Laboratory Tests Test 12/19/18 13:50 12/19/18 15:15 12/19/18 17:50 12/19/18 20:15 White Blood Count 7.5 x10^3/uL (4.0-11.0) 5.7 x10^3/uL (4.0-11.0) Red Blood Count 3.10 x10^6/uL (3.50-5.40) 2.55 x10^6/uL (3.50-5.40) Hemoglobin 10.0 g/dL (12.0-15.5) 8.3 g/dL (12.0-15.5) Hematocrit 31.5 % (36.0-47.0) 26.7 % (36.0-47.0) Mean Corpuscular Volume 102 fL (79-100) 105 fL (79-100) Mean Corpuscular Hemoglobin 32 pg (25-35) 32 pg (25-35) Mean Corpuscular Hemoglobin Concent 32 g/dL (31-37) 31 g/dL (31-37) Red Cell Distribution Width 17.6 % (11.5-14.5) 17.3 % (11.5-14.5) Platelet Count 454 x10^3/uL (140-400) 475 x10^3/uL (140-400) Neutrophils (%) (Auto) 63 % (31-73) 78 % (31-73) Lymphocytes (%) (Auto) 30 % (24-48) 15 % (24-48) Monocytes (%) (Auto) 7 % (0-9) 4 % (0-9) Eosinophils (%) (Auto) 0 % (0-3) 1 % (0-3) Basophils (%) (Auto) 1 % (0-3) 0 % (0-3) Neutrophils # (Auto) 4.8 x10^3uL (1.8-7.7) 4.5 x10^3uL (1.8-7.7) Lymphocytes # (Auto) 2.2 x10^3/uL (1.0-4.8) 0.9 x10^3/uL (1.0-4.8) Monocytes # (Auto) 0.5 x10^3/uL (0.0-1.1) 0.3 x10^3/uL (0.0-1.1) Eosinophils # (Auto) 0.0 x10^3/uL (0.0-0.7) 0.1 x10^3/uL (0.0-0.7) Basophils # (Auto) 0.0 x10^3/uL (0.0-0.2) 0.0 x10^3/uL (0.0-0.2) Prothrombin Time 53.3 SEC (11.7-14.0) Prothromb Time International Ratio 5.9 (0.8-1.1) Activated Partial Thromboplast Time 143 SEC (24-38) Sodium Level 137 mmol/L (136-145) 141 mmol/L (136-145) Potassium Level 5.2 mmol/L (3.5-5.1) 5.0 mmol/L (3.5-5.1) Chloride Level 107 mmol/L (98-107) 114 mmol/L (98-107) Carbon Dioxide Level 13 mmol/L (21-32) 9 mmol/L (21-32) Anion Gap 17 (6-14) 18 (6-14) Blood Urea Nitrogen 18 mg/dL (7-20) 16 mg/dL (7-20) Creatinine 1.9 mg/dL (0.6-1.0) 1.5 mg/dL (0.6-1.0) Estimated GFR (Cockcroft-Gault) 34.6 45.4 BUN/Creatinine Ratio 9 (6-20) Glucose Level 157 mg/dL (70-99) 159 mg/dL (70-99) Lactic Acid Level 5.9 mmol/L (0.4-2.0) 5.2 mmol/L (0.4-2.0) Calcium Level 8.4 mg/dL (8.5-10.1) 7.1 mg/dL (8.5-10.1) Magnesium Level 1.8 mg/dL (1.8-2.4) Total Bilirubin 3.8 mg/dL (0.2-1.0) 3.2 mg/dL (0.2-1.0) Aspartate Amino Transf (AST/SGOT) 77 U/L (15-37) 59 U/L (15-37) Alanine Aminotransferase (ALT/SGPT) 58 U/L (14-59) 45 U/L (14-59) Alkaline Phosphatase 98 U/L (46-116) 75 U/L (46-116) Creatine Kinase 201 U/L (26-192) 242 U/L (26-192) Creatine Kinase MB (Mass) 2.9 ng/mL (0.0-3.6) 3.2 ng/mL (0.0-3.6) Creatine Kinase MB Relative Index 1.4 % (0-4) 1.3 % (0-4) Troponin I Quantitative < 0.017 ng/mL (0.000-0.055) 0.047 ng/mL (0.000-0.055) Total Protein 5.4 g/dL (6.4-8.2) 4.1 g/dL (6.4-8.2) Albumin 1.7 g/dL (3.4-5.0) 1.3 g/dL (3.4-5.0) Albumin/Globulin Ratio 0.5 (1.0-1.7) Urine Collection Type Unknown Urine Color Red Urine Clarity Clear Urine pH 5.5 Urine Specific [place] 1.025 Urine Protein Negative mg/dL (NEG-TRACE) Urine Glucose (UA) Negative mg/dL (NEG) Urine Ketones (Stick) Trace mg/dL (NEG) Urine Blood Negative (NEG) Urine Nitrite Positive (NEG) Urine Bilirubin Large (NEG) Urine Urobilinogen Dipstick 4.0 mg/dL (0.2 mg/dL) Urine Leukocyte Esterase Small (NEG) Urine RBC 0 /HPF (0-2) Urine WBC 5-10 /HPF (0-4) Urine Squamous Epithelial Cells None /LPF Urine Bacteria 0 /HPF (0-FEW) Urine Hyaline Casts Many /HPF Urine Mucus Mod /LPF Direct Bilirubin 2.8 mg/dL (0.0-0.2) Ammonia 129 mcmol/L (11-34) Segmented Neutrophils % 57 % (35-66) Band Neutrophils % 21 % (0-9) Lymphocytes % 10 % (24-48) Monocytes % 5 % (0-10) Metamyelocytes % 7 % (0-0) Nucleated Red Blood Cells 4 Toxic Vacuolation Slight Platelet Estimate Adequate (ADEQUATE) Polychromasia Occasional Anisocytosis Slight Microcytosis Slight Test 12/19/18 20:18 12/19/18 23:28 12/20/18 00:35 12/20/18 05:40 O2 Saturation 94 % (92-99) 97 % (92-99) 98 % (92-99) Arterial Blood pH 7.19 (7.35-7.45) 6.92 (7.35-7.45) 7.10 (7.35-7.45) Arterial Blood pCO2 at Patient Temp 20 mmHg (35-46) 20 mmHg (35-46) 18 mmHg (35-46) Arterial Blood pO2 at Patient Temp 91 mmHg (75-108) 149 mmHg (75-108) 149 mmHg (75-108) Arterial Blood HCO3 8 mmol/L (21-28) 4 mmol/L (21-28) 5 mmol/L (21-28) Arterial Blood Base Excess -19 mmol/L (-3-3) -27 mmol/L (-3-3) -22 mmol/L (-3-3) FiO2 21 30 30 White Blood Count 10.7 x10^3/uL (4.0-11.0) Red Blood Count 1.37 x10^6/uL (3.50-5.40) Hemoglobin 4.6 g/dL (12.0-15.5) Hematocrit 16.4 % (36.0-47.0) Mean Corpuscular Volume 120 fL (79-100) Mean Corpuscular Hemoglobin 33 pg (25-35) Mean Corpuscular Hemoglobin Concent 28 g/dL (31-37) Red Cell Distribution Width 17.8 % (11.5-14.5) Platelet Count 308 x10^3/uL (140-400) Neutrophils (%) (Auto) 64 % (31-73) Lymphocytes (%) (Auto) 32 % (24-48) Monocytes (%) (Auto) 3 % (0-9) Eosinophils (%) (Auto) 2 % (0-3) Basophils (%) (Auto) 0 % (0-3) Neutrophils # (Auto) 6.9 x10^3uL (1.8-7.7) Lymphocytes # (Auto) 3.4 x10^3/uL (1.0-4.8) Monocytes # (Auto) 0.3 x10^3/uL (0.0-1.1) Eosinophils # (Auto) 0.2 x10^3/uL (0.0-0.7) Basophils # (Auto) 0.0 x10^3/uL (0.0-0.2) Sodium Level 141 mmol/L (136-145) Potassium Level 6.2 mmol/L (3.5-5.1) Chloride Level 111 mmol/L (98-107) Carbon Dioxide Level < 5 mmol/L (21-32) Anion Gap (6-14) Blood Urea Nitrogen 17 mg/dL (7-20) Creatinine 2.0 mg/dL (0.6-1.0) Estimated GFR (Cockcroft-Gault) 32.6 Glucose Level 185 mg/dL (70-99) Lactic Acid Level 19.7 mmol/L (0.4-2.0) Calcium Level 6.7 mg/dL (8.5-10.1) Total Bilirubin 2.0 mg/dL (0.2-1.0) Direct Bilirubin 1.7 mg/dL (0.0-0.2) Aspartate Amino Transf (AST/SGOT) 166 U/L (15-37) Alanine Aminotransferase (ALT/SGPT) 42 U/L (14-59) Alkaline Phosphatase 94 U/L (46-116) Total Protein 2.9 g/dL (6.4-8.2) Albumin 0.7 g/dL (3.4-5.0) Test 12/20/18 06:45 12/20/18 09:00 12/20/18 09:01 12/20/18 10:20 Prothrombin Time > 120.0 SEC (11.7-14.0) 85.1 SEC (11.7-14.0) Prothromb Time International Ratio > 15.0 (0.8-1.1) 10.6 (0.8-1.1) Activated Partial Thromboplast Time > 150 SEC (24-38) O2 Saturation 98 % (92-99) Arterial Blood pH 6.99 (7.35-7.45) Arterial Blood pH (Temp corrected) 7.01 Arterial Blood pCO2 at Patient Temp 20 mmHg (35-46) Arterial Blood pCO2 (Temp correct) 19 mmHg Arterial Blood pO2 at Patient Temp 136 mmHg (75-108) Arterial Blood pO2 (Temp corrected) 124 mmHg Arterial Blood HCO3 5 mmol/L (21-28) Arterial Blood Base Excess -25 mmol/L (-3-3) Glucose (Fingerstick) 193 mg/dL (70-99) White Blood Count 10.7 x10^3/uL (4.0-11.0) Red Blood Count 3.22 x10^6/uL (3.50-5.40) Hemoglobin 9.5 g/dL (12.0-15.5) Hematocrit 29.3 % (36.0-47.0) Mean Corpuscular Volume 91 fL (79-100) Mean Corpuscular Hemoglobin 30 pg (25-35) Mean Corpuscular Hemoglobin Concent 33 g/dL (31-37) Red Cell Distribution Width 17.6 % (11.5-14.5) Platelet Count 144 x10^3/uL (140-400) Neutrophils (%) (Auto) 61 % (31-73) Lymphocytes (%) (Auto) 36 % (24-48) Monocytes (%) (Auto) 2 % (0-9) Eosinophils (%) (Auto) 1 % (0-3) Basophils (%) (Auto) 1 % (0-3) Neutrophils # (Auto) 6.5 x10^3uL (1.8-7.7) Lymphocytes # (Auto) 3.8 x10^3/uL (1.0-4.8) Monocytes # (Auto) 0.2 x10^3/uL (0.0-1.1) Eosinophils # (Auto) 0.1 x10^3/uL (0.0-0.7) Basophils # (Auto) 0.1 x10^3/uL (0.0-0.2) Fibrinogen 208 mg/dL (200-440) Sodium Level 149 mmol/L (136-145) Potassium Level 4.5 mmol/L (3.5-5.1) Chloride Level 110 mmol/L (98-107) Carbon Dioxide Level 10 mmol/L (21-32) Anion Gap 29 (6-14) Blood Urea Nitrogen 16 mg/dL (7-20) Creatinine 1.8 mg/dL (0.6-1.0) Estimated GFR (Cockcroft-Gault) 36.8 BUN/Creatinine Ratio 9 (6-20) Glucose Level 227 mg/dL (70-99) Calcium Level 7.0 mg/dL (8.5-10.1) Total Bilirubin 2.5 mg/dL (0.2-1.0) Aspartate Amino Transf (AST/SGOT) 466 U/L (15-37) Alanine Aminotransferase (ALT/SGPT) 79 U/L (14-59) Alkaline Phosphatase 93 U/L (46-116) Total Protein 4.0 g/dL (6.4-8.2) Albumin 1.6 g/dL (3.4-5.0) Albumin/Globulin Ratio 0.7 (1.0-1.7) Test 12/20/18 11:35 12/20/18 11:38 12/20/18 12:56 12/20/18 13:25 White Blood Count 8.6 x10^3/uL (4.0-11.0) 8.8 x10^3/uL (4.0-11.0) Red Blood Count 3.47 x10^6/uL (3.50-5.40) 4.65 x10^6/uL (3.50-5.40) Hemoglobin 10.2 g/dL (12.0-15.5) 12.8 g/dL (12.0-15.5) Hematocrit 31.4 % (36.0-47.0) 40.5 % (36.0-47.0) Mean Corpuscular Volume 90 fL (79-100) 87 fL (79-100) Mean Corpuscular Hemoglobin 30 pg (25-35) 28 pg (25-35) Mean Corpuscular Hemoglobin Concent 33 g/dL (31-37) 32 g/dL (31-37) Red Cell Distribution Width 17.8 % (11.5-14.5) 16.7 % (11.5-14.5) Platelet Count 138 x10^3/uL (140-400) 104 x10^3/uL (140-400) 104 x10^3/uL (140-400) Glucose (Fingerstick) 179 mg/dL (70-99) Neutrophils (%) (Auto) 61 % (31-73) Lymphocytes (%) (Auto) 34 % (24-48) Monocytes (%) (Auto) 3 % (0-9) Eosinophils (%) (Auto) 3 % (0-3) Basophils (%) (Auto) 1 % (0-3) Neutrophils # (Auto) 5.3 x10^3uL (1.8-7.7) Lymphocytes # (Auto) 2.9 x10^3/uL (1.0-4.8) Monocytes # (Auto) 0.2 x10^3/uL (0.0-1.1) Eosinophils # (Auto) 0.2 x10^3/uL (0.0-0.7) Basophils # (Auto) 0.0 x10^3/uL (0.0-0.2) Sodium Level 147 mmol/L (136-145) Potassium Level 4.7 mmol/L (3.5-5.1) Chloride Level 113 mmol/L (98-107) Carbon Dioxide Level 8 mmol/L (21-32) Anion Gap 26 (6-14) Blood Urea Nitrogen 16 mg/dL (7-20) Creatinine 1.8 mg/dL (0.6-1.0) Estimated GFR (Cockcroft-Gault) 36.8 Glucose Level 205 mg/dL (70-99) Calcium Level 6.7 mg/dL (8.5-10.1) Phosphorus Level 6.4 mg/dL (2.6-4.7) Ferritin 6782 ng/mL (8-252) Albumin 1.5 g/dL (3.4-5.0) Prothrombin Time 85.2 SEC (11.7-14.0) Prothromb Time International Ratio 10.6 (0.8-1.1) Activated Partial Thromboplast Time 112 SEC (24-38) Fibrinogen 217 mg/dL (200-440) D-Dimer (Magnolia) 2.09 ug/mlFEU (0.00-0.50) Laboratory Tests Test 12/19/18 23:28 12/20/18 00:35 12/20/18 05:40 12/20/18 06:45 O2 Saturation 97 % (92-99) 98 % (92-99) Arterial Blood pH 6.92 (7.35-7.45) 7.10 (7.35-7.45) Arterial Blood pCO2 at Patient Temp 20 mmHg (35-46) 18 mmHg (35-46) Arterial Blood pO2 at Patient Temp 149 mmHg (75-108) 149 mmHg (75-108) Arterial Blood HCO3 4 mmol/L (21-28) 5 mmol/L (21-28) Arterial Blood Base Excess -27 mmol/L (-3-3) -22 mmol/L (-3-3) FiO2 30 30 White Blood Count 10.7 x10^3/uL (4.0-11.0) Red Blood Count 1.37 x10^6/uL (3.50-5.40) Hemoglobin 4.6 g/dL (12.0-15.5) Hematocrit 16.4 % (36.0-47.0) Mean Corpuscular Volume 120 fL (79-100) Mean Corpuscular Hemoglobin 33 pg (25-35) Mean Corpuscular Hemoglobin Concent 28 g/dL (31-37) Red Cell Distribution Width 17.8 % (11.5-14.5) Platelet Count 308 x10^3/uL (140-400) Neutrophils (%) (Auto) 64 % (31-73) Lymphocytes (%) (Auto) 32 % (24-48) Monocytes (%) (Auto) 3 % (0-9) Eosinophils (%) (Auto) 2 % (0-3) Basophils (%) (Auto) 0 % (0-3) Neutrophils # (Auto) 6.9 x10^3uL (1.8-7.7) Lymphocytes # (Auto) 3.4 x10^3/uL (1.0-4.8) Monocytes # (Auto) 0.3 x10^3/uL (0.0-1.1) Eosinophils # (Auto) 0.2 x10^3/uL (0.0-0.7) Basophils # (Auto) 0.0 x10^3/uL (0.0-0.2) Sodium Level 141 mmol/L (136-145) Potassium Level 6.2 mmol/L (3.5-5.1) Chloride Level 111 mmol/L (98-107) Carbon Dioxide Level < 5 mmol/L (21-32) Anion Gap (6-14) Blood Urea Nitrogen 17 mg/dL (7-20) Creatinine 2.0 mg/dL (0.6-1.0) Estimated GFR (Cockcroft-Gault) 32.6 Glucose Level 185 mg/dL (70-99) Lactic Acid Level 19.7 mmol/L (0.4-2.0) Calcium Level 6.7 mg/dL (8.5-10.1) Total Bilirubin 2.0 mg/dL (0.2-1.0) Direct Bilirubin 1.7 mg/dL (0.0-0.2) Aspartate Amino Transf (AST/SGOT) 166 U/L (15-37) Alanine Aminotransferase (ALT/SGPT) 42 U/L (14-59) Alkaline Phosphatase 94 U/L (46-116) Total Protein 2.9 g/dL (6.4-8.2) Albumin 0.7 g/dL (3.4-5.0) Prothrombin Time > 120.0 SEC (11.7-14.0) Prothromb Time International Ratio > 15.0 (0.8-1.1) Activated Partial Thromboplast Time > 150 SEC (24-38) Test 12/20/18 09:00 12/20/18 09:01 12/20/18 10:20 12/20/18 11:35 O2 Saturation 98 % (92-99) Arterial Blood pH 6.99 (7.35-7.45) Arterial Blood pH (Temp corrected) 7.01 Arterial Blood pCO2 at Patient Temp 20 mmHg (35-46) Arterial Blood pCO2 (Temp correct) 19 mmHg Arterial Blood pO2 at Patient Temp 136 mmHg (75-108) Arterial Blood pO2 (Temp corrected) 124 mmHg Arterial Blood HCO3 5 mmol/L (21-28) Arterial Blood Base Excess -25 mmol/L (-3-3) Glucose (Fingerstick) 193 mg/dL (70-99) White Blood Count 10.7 x10^3/uL (4.0-11.0) 8.6 x10^3/uL (4.0-11.0) Red Blood Count 3.22 x10^6/uL (3.50-5.40) 3.47 x10^6/uL (3.50-5.40) Hemoglobin 9.5 g/dL (12.0-15.5) 10.2 g/dL (12.0-15.5) Hematocrit 29.3 % (36.0-47.0) 31.4 % (36.0-47.0) Mean Corpuscular Volume 91 fL (79-100) 90 fL (79-100) Mean Corpuscular Hemoglobin 30 pg (25-35) 30 pg (25-35) Mean Corpuscular Hemoglobin Concent 33 g/dL (31-37) 33 g/dL (31-37) Red Cell Distribution Width 17.6 % (11.5-14.5) 17.8 % (11.5-14.5) Platelet Count 144 x10^3/uL (140-400) 138 x10^3/uL (140-400) Neutrophils (%) (Auto) 61 % (31-73) Lymphocytes (%) (Auto) 36 % (24-48) Monocytes (%) (Auto) 2 % (0-9) Eosinophils (%) (Auto) 1 % (0-3) Basophils (%) (Auto) 1 % (0-3) Neutrophils # (Auto) 6.5 x10^3uL (1.8-7.7) Lymphocytes # (Auto) 3.8 x10^3/uL (1.0-4.8) Monocytes # (Auto) 0.2 x10^3/uL (0.0-1.1) Eosinophils # (Auto) 0.1 x10^3/uL (0.0-0.7) Basophils # (Auto) 0.1 x10^3/uL (0.0-0.2) Prothrombin Time 85.1 SEC (11.7-14.0) Prothromb Time International Ratio 10.6 (0.8-1.1) Fibrinogen 208 mg/dL (200-440) Sodium Level 149 mmol/L (136-145) Potassium Level 4.5 mmol/L (3.5-5.1) Chloride Level 110 mmol/L (98-107) Carbon Dioxide Level 10 mmol/L (21-32) Anion Gap 29 (6-14) Blood Urea Nitrogen 16 mg/dL (7-20) Creatinine 1.8 mg/dL (0.6-1.0) Estimated GFR (Cockcroft-Gault) 36.8 BUN/Creatinine Ratio 9 (6-20) Glucose Level 227 mg/dL (70-99) Calcium Level 7.0 mg/dL (8.5-10.1) Total Bilirubin 2.5 mg/dL (0.2-1.0) Aspartate Amino Transf (AST/SGOT) 466 U/L (15-37) Alanine Aminotransferase (ALT/SGPT) 79 U/L (14-59) Alkaline Phosphatase 93 U/L (46-116) Total Protein 4.0 g/dL (6.4-8.2) Albumin 1.6 g/dL (3.4-5.0) Albumin/Globulin Ratio 0.7 (1.0-1.7) Test 12/20/18 11:38 12/20/18 12:56 12/20/18 13:25 Glucose (Fingerstick) 179 mg/dL (70-99) White Blood Count 8.8 x10^3/uL (4.0-11.0) Red Blood Count 4.65 x10^6/uL (3.50-5.40) Hemoglobin 12.8 g/dL (12.0-15.5) Hematocrit 40.5 % (36.0-47.0) Mean Corpuscular Volume 87 fL (79-100) Mean Corpuscular Hemoglobin 28 pg (25-35) Mean Corpuscular Hemoglobin Concent 32 g/dL (31-37) Red Cell Distribution Width 16.7 % (11.5-14.5) Platelet Count 104 x10^3/uL (140-400) 104 x10^3/uL (140-400) Neutrophils (%) (Auto) 61 % (31-73) Lymphocytes (%) (Auto) 34 % (24-48) Monocytes (%) (Auto) 3 % (0-9) Eosinophils (%) (Auto) 3 % (0-3) Basophils (%) (Auto) 1 % (0-3) Neutrophils # (Auto) 5.3 x10^3uL (1.8-7.7) Lymphocytes # (Auto) 2.9 x10^3/uL (1.0-4.8) Monocytes # (Auto) 0.2 x10^3/uL (0.0-1.1) Eosinophils # (Auto) 0.2 x10^3/uL (0.0-0.7) Basophils # (Auto) 0.0 x10^3/uL (0.0-0.2) Sodium Level 147 mmol/L (136-145) Potassium Level 4.7 mmol/L (3.5-5.1) Chloride Level 113 mmol/L (98-107) Carbon Dioxide Level 8 mmol/L (21-32) Anion Gap 26 (6-14) Blood Urea Nitrogen 16 mg/dL (7-20) Creatinine 1.8 mg/dL (0.6-1.0) Estimated GFR (Cockcroft-Gault) 36.8 Glucose Level 205 mg/dL (70-99) Calcium Level 6.7 mg/dL (8.5-10.1) Phosphorus Level 6.4 mg/dL (2.6-4.7) Ferritin 6782 ng/mL (8-252) Albumin 1.5 g/dL (3.4-5.0) Prothrombin Time 85.2 SEC (11.7-14.0) Prothromb Time International Ratio 10.6 (0.8-1.1) Activated Partial Thromboplast Time 112 SEC (24-38) Fibrinogen 217 mg/dL (200-440) D-Dimer (Magnolia) 2.09 ug/mlFEU (0.00-0.50) Brief Hospital Course Ms Palencia is a 43 yo F w/ PMHx HTN, PE, DVT s/p IVF filter, GERD, hepatic steatosis, DM, s/p Sabi-en-Y who was discharged from [facility] and driven by private vehicle to ED with her and daughter. Admitted to ICU with dx of sepsis and anemia. Plain films showed free air under the diaphragm. Has hx of marginal ulcer which had resolved per recent EGD. She was hemodynamically too unstable to go to surgery for likely perforated viscous. [She as recently admitted for chest pain back in October 2018, seen by cardiology, GI, pulmonology. found with bilirubin of 3 and a MDRO UTI. Seen by pulm for h/o PE, CTPA shows some recanalization, her xarelto was restarted. As she was very deconditioned 2/2 her UTI with sepsis she was seen fit for acute rehabilitation by physical and occupational therapy and was discharged to SNF. Seen 03/2018 and 06/2018 for chest pain, vomiting, coughing, EGD in 03/2018 showed reflux esophagitis and Sabi-en-Y anatomy w/ anastomotic ulcer. She has difficulty with compliance w/ sucralfate and PPI at home. She was seen by GI and had hemochromatosis mutation (carrier only) and otherwise labs not revealing of etiology and therefore underwent liver biopsy on 11/20/18 that revealed prominent steatosis without significant fibrosis or iron accumulation.] Hb dropped from 10-->8.30-->4.6. INR 15. KUB still shows free air. Seen on vent AC mode, warming blanket, levophed maxed out, epinephrine, vasopressin, neosynephrine as well. Received 6u PRBC transfusion and FFP x4 for elevated INR. Lactate up to 19.7 this morning. Discussed with and daughter bedside her overall grim prognosis with septic shock, in DIC. Seen by pulmonology, GI, hematology, cardiology, ID, and palliative care. Given merrem, zyvox, vancomycin. After discussion with about her blood pressure worsening and her grim prognosis he stated it was in God's hands and that he had errands to run and left the hospital. Greater than 35 minutes of critical care time spent this morning, required multiple visits throughout the day as she was in septic shock actively dying ED called to the code at 840 pm, arrived 842 pm for pulselessness Patient already maxed out on multiple pressors everything possible has been done. Gave epi, did cpr, gave bicarb 845 pm, asystole, no pulse code called. Discharge Information Condition at Discharge: / Disposition/Orders: Scheduled Carvedilol (Carvedilol ) 3.125 Mg Tablet, 3.125 MG PO BIDWMEALS, (Reported) Entered as Reported by: Cait Powers on 04/18/181915 Cholecalciferol (Vitamin D3) (Vitamin D3) 50,000 Unit Capsule, 50,000 UNIT PO WEEKLY, (Reported) Entered as Reported by: Cait Powers on 04/18/181915 Folic Acid (Folic Acid) 1 Mg Tablet, 1 MG PO DAILY, (Reported) Entered as Reported by: Cait Powers on 04/18/181915 Lactobacillus Rhamnosus Gg (Culturelle) 1 Each Cap.sprink, 1 CAP PO BID for diarrhea for 7 Days, #14 Prescribed by: LUANN ROSENBAUM MD on 11/20/18 1244 Losartan Potassium (Cozaar ) 50 Mg Tablet, 100 MG PO DAILY for hypertension for 30 Days, #60 Prescribed by: DANITA ZENDEJAS MD on 07/05/18 1134 Lurasidone Hcl (Latuda) 40 Mg Tablet, 40 MG PO DAILY, (Reported) Entered as Reported by: Cait Powers on 04/18/181915 Magnesium Oxide (Magnesium Oxide) 400 Mg Tablet, 250 MG PO DAILY, (Reported) Entered as Reported by: Cait Powers on 04/18/181915 Rivaroxaban (Xarelto) 20 Mg Tablet, 20 MG PO DAILY, (Reported) Entered as Reported by: Cait Powers on 04/18/181915 Sucralfate (Carafate) 1 Gm Tablet, 1 GM PO QIDACHS, #80 Prescribed by: ELENO JAMES on 04/21/18 1335 [Pantoprazole] 40 MG TABLET.DR, 40 MG PO BIDAC, #60 Ref 1 Prescribed by: ELENO JAMES on 04/21/18 1335 Scheduled PRN Acetaminophen (Tylenol) 325 Mg Tablet, 650 MG PO PRN Q4HRS PRN for TEMP OVER 100.4F OR MILD PAIN for 30 Days, #60 Prescribed by: LUANN ROSENBAUM MD on 11/20/18 1244 Albuterol Sulfate (Proair Hfa) 8.5 Gm Hfa.aer.ad, 2.5 MG NEB PRN Q4HRS PRN for SHORTNESS OF BREATH for 30 Days, #1 Prescribed by: LUANN ROSENBAUM MD on 11/20/18 1244 Clonidine Hcl (Catapres) 0.1 Mg Tablet, 0.1 MG PO PRN Q6HRS PRN for SBP>160 OR DBP>90 for 30 Days, #90 SBP > 160 or DBP > 90 Prescribed by: LUANN ROSENBAUM MD on 11/20/18 1244 Docusate Sodium (Colace) 100 Mg Capsule, 100 MG PO PRN BID PRN for HARD STOOLS for 30 Days, #60 Prescribed by: LUANN ROSENBAUM MD on 11/20/18 1244 Hydrocodone Bit/Acetaminophen (Hydrocodone-Apap 5-325 ) 1 Tab Tablet, 1 TAB PO PRN Q6HRS PRN for SEVERE PAIN for 6 Days, #18 Prescribed by: LUANN ROSENBAUM MD on 11/20/18 1244 Lorazepam (Ativan) 0.5 Mg Tablet, 0.5 MG PO PRN Q6HRS PRN for ANXIETY / AGITATION for 15 Days, #45 Prescribed by: LUANN ROSENBAUM MD on 11/20/18 1244 Polyethylene Glycol 3350 (Polyethylene Glycol 3350) 17 Gm Powd.pack, 17 GM PO PRN DAILY PRN for CONSTIPATION for 30 Days, #30 Prescribed by: LUANN ROSENBAUM MD on 11/20/18 1244 LUANN ROSENBAUM MD December 20, 2018 21:39
--- NOTE | 2018-12-20 23:21 | CONS ---
DATE OF CONSULTATION: 12/19/2018 ATTENDING PHYSICIAN: Emilee Mcfarland MD. REASON FOR CONSULTATION: The patient is seen in pulmonary consultation at the request of Dr. Mcfarland for dyspnea, history of PE, DVT. HISTORY OF PRESENT ILLNESS: The patient is a 43-year-old that presented yesterday. The electronic medical record was down. A written note was placed in the chart. The patient basically presented from [facility] with decreased level of consciousness and some increasing shortness of breath. She was also weak. She was complaining of chest pain mainly. In the Emergency Room, she was evaluated and underwent EKG that shows the possibility of supraventricular tachycardia. She was given some adenosine with no significant response. I saw her last evening in the Intensive Care Unit. She was complaining of chest pain. No abdominal pain. She was given some morphine for the chest discomfort. I evaluated her, could not much history other than she was not feeling well. She was weak and had some diarrhea. She did not complain of any significant abdominal discomfort. I discussed the case with Dr. Farmer who felt that she had a sinus tachycardia based on her EKG. The patient was started on IV fluid. She was hypotensive. She was started on some Levophed. I also ordered a CT abdomen and pelvis to rule out the possibility of intra-abdominal process. Her lactic acid was elevated. I reviewed her chest x-ray, was not overly impressive. She also had a CT head, which revealed no acute findings. LABORATORY DATA: Reviewed. She did have a normal white count. Hemoglobin and hematocrit were noted at 10 and 31. The lactic acid level was elevated. Her INR was 5.9. Electrolytes were noted. Potassium is slightly elevated. Carbon dioxide was low. BUN was 18, creatinine was 1.9. Albumin was low. PAST MEDICAL HISTORY: Unknown at the time. There were no old records available. She did have a history of DVT and pulmonary embolism. FAMILY HISTORY: Unknown. PAST SURGICAL HISTORY: Unknown. ALLERGIES: NOTED. SHE WAS ALLERGIC TO CEPHALEXIN, FENTANYL. PHYSICAL EXAMINATION: GENERAL: The patient appeared to be older than stated age. She appeared to be grayish in color. She did appear to be ill. VITAL SIGNS: Noted as indicated above. She was hypotensive. Her heart rate was markedly elevated. O2 saturation was low. HEENT: Eyes: The sclerae were icteric. NECK: Jugular venous distention could not be assessed secondary to body habitus. CHEST: Full expansion. LUNGS: Adequate airway flow, no wheezes. CARDIOVASCULAR: Regular rate and rhythm with S1, S2, no S3. ABDOMEN: Soft. The exam was performed before the morphine was given. She did not elicit any pain. EXTREMITIES: She has 1+ edema. NEUROLOGIC: The patient was sleepy, but arousable, followed commands. LABORATORY DATA: As indicated above. Chest x-ray as indicated above. IMPRESSION: 1. Acute hypoxemic respiratory failure. 2. Metabolic acidosis. 3. Lactic acidosis. 4. Metabolic toxic encephalopathy. 5. Severe protein malnutrition, present upon admission. 6. Anemia, chronic in nature suspect. 7. Elevated INR. Currently, the patient was taking Coumadin. PLAN: 1. We will continue support with IV fluids. 2. CT abdomen and pelvis with oral contrast. 3. Her presentation is not compatible with recurrent DVT or pulmonary embolism. 4. Follow Cardiology input, case discussed with Dr. Farmer. 5. Initiate empiric antibiotics. 6. Initiate Solu-Cortef for possible adrenal insufficiency. There was reportedly a history of patient being on chronic steroid use. The above was discussed with Dr. Farmer, the RN taking care of the patient. Total cumulative critical care time of 50 minutes. KASI WORKMAN MD DR: CATINA/shellie JOB#: [id number] / [id number]
--- NOTE | 2018-12-21 16:33 | PHYS DOC ---
Past Medical History Past Medical History: GERD, Hypertension, Other Additional Past Medical Histor: PE, DVT (MAYCOL BLANCO) Past Surgical History: Cholecystectomy, Tubal ligation Additional Past Surgical Histo: gastric bypass, umbilical hernia, uterine ablation (MAYCOL BLANCO) Alcohol Use: None Drug Use: None (MAYCOL BLANCO) Central Line Placement Proc Central Line Indication: Vascular access Consent: The patient provided consent for this procedure. Procedure: The patient was positioned appropriately and the skin over the RIGHT SUBCLAVIAN VEIN was prepped and draped in a sterile fashion. Local anesthesia was used. A large bore needle was used to identify the vein. A guide wire was then inserted into the vein through the needle. A triple lumen catheter was then inserted into the vessel over the guide wire using the Seldinger technique. All ports showed good, free flowing blood return and were flushed with saline solution. The catheter was then securely fastened to the skin with sutures and covered with a sterile dressing. A post procedure X-ray was ordered. The patient tolerated the procedure well. Complications: none. [] (MORRIS VALENZUELA DO) Adult General Chief Complaint Chief Complaint: CHEST PAIN HPI HPI This electronic medical note is being completed on 12/21/18 for Gemma Palencia from ER visit, DOS 12/19/18. The computer system was on downtime and a paper record was completed at time of her visit. Pt presents to ER with her . She is extremely weak and had to be helped from wheelchair to bed and is drooling on to the floor. She is able to tell me she doesn't feel well and has been having chest pain for a few days. Pt's is in the room and provides more of history. Pt was admitted earlier this month and then discharged to [facility]. reports that for the last 3 days she has been very weak and reports chest pain. She has had occasional stomach cramping and they stopped her lactulose. Per they also recently started Midodrine for low blood pressures. On arrival to ER she is tachycardic in the 150's and had no obtainable blood pressure. Pt was moved quickly to Trauma room 3 so that a central line could be placed. Dr. Valenzuela in to room and placed R sided central line (see procedure note). Aggressive IV fluids started along with Levophed. (MAYCOL BLANCO) Review of Systems Review of Systems Limited due to pt condition Constitutional: Denies fever or chills Respiratory: Denies cough or shortness of breath [] Cardiovascular: Reports chest pain GI: Denies abdominal pain. Reports nausea and diarrhea : Denies dysuria or hematuria [] Musculoskeletal: Denies back pain or joint pain [] Integument: Denies rash or skin lesions [] Neurologic: Reports profound weakness. Endocrine: Denies polyuria or polydipsia [] All other systems were reviewed and found to be within normal limits, except as documented in this note. (MAYCOL BLANCO) Current Medications Current Medications Current Medications Medications (Trade) Dose Ordered Sig/Alta Start Time Stop Time Status Last Admin Dose Admin Lidocaine HCl (Lidocaine 1% 20ml Vial) 20 ml STK-MED ONCE 12/19/18 14:11 12/19/18 14:12 DC Sodium Chloride 1,000 ml @ 1,000 mls/hr 1X ONCE 12/19/18 14:00 12/19/18 15:01 DC (MORRIS VALENZUELA DO) Allergies Allergies Allergies Coded Allergies Type Severity Reaction Last Updated Verified banana Allergy Severe SWELLING TO MOUTH AND TONGUE 04/20/18 Yes shrimp Allergy Severe SWELLING TO MOUTH AND TONGUE 04/20/18 Yes fentanyl Allergy Intermediate 07/02/18 Yes I S O L A T I O N *CONTACT* Allergy Unknown 11/10/18 Yes (MORRIS VALENZUELA DO) Physical Exam Physical Exam Constitutional: Pale skin color, older then stated age, toxic appearing HENT: Normocephalic, atraumatic, oropharynx is dry Neck: Normal range of motion, no tenderness, supple, no stridor. Cardiovascular: Tachycardic Lungs & Thorax: Bilateral breath sounds clear to auscultation Abdomen: Soft, nontender abdomen. Skin: Warm, dry, no erythema, no rash. Back: No tenderness, no CVA tenderness. Extremities: 2+ edema B lower legs Neurologic: Alert and oriented X 3, profound diffuse weakness (MAYCOL BLANCO) Current Patient Data Lab Values Laboratory Tests Test 12/19/18 13:50 White Blood Count 7.5 x10^3/uL (4.0-11.0) Red Blood Count 3.10 x10^6/uL (3.50-5.40) L Hemoglobin 10.0 g/dL (12.0-15.5) L Hematocrit 31.5 % (36.0-47.0) L Mean Corpuscular Volume 102 fL (79-100) #H Mean Corpuscular Hemoglobin 32 pg (25-35) Mean Corpuscular Hemoglobin Concent 32 g/dL (31-37) Red Cell Distribution Width 17.6 % (11.5-14.5) H Platelet Count 454 x10^3/uL (140-400) H Neutrophils (%) (Auto) 63 % (31-73) Lymphocytes (%) (Auto) 30 % (24-48) Monocytes (%) (Auto) 7 % (0-9) Eosinophils (%) (Auto) 0 % (0-3) Basophils (%) (Auto) 1 % (0-3) Neutrophils # (Auto) 4.8 x10^3uL (1.8-7.7) Lymphocytes # (Auto) 2.2 x10^3/uL (1.0-4.8) Monocytes # (Auto) 0.5 x10^3/uL (0.0-1.1) Eosinophils # (Auto) 0.0 x10^3/uL (0.0-0.7) Basophils # (Auto) 0.0 x10^3/uL (0.0-0.2) Prothrombin Time 53.3 SEC (11.7-14.0) H Prothrombin Time INR 5.9 (0.8-1.1) *H PTT 143 SEC (24-38) H Sodium Level 137 mmol/L (136-145) Potassium Level 5.2 mmol/L (3.5-5.1) H Chloride Level 107 mmol/L (98-107) Carbon Dioxide Level 13 mmol/L (21-32) L Anion Gap 17 (6-14) H Blood Urea Nitrogen 18 mg/dL (7-20) Creatinine 1.9 mg/dL (0.6-1.0) H Estimated GFR (Cockcroft-Gault) 34.6 BUN/Creatinine Ratio 9 (6-20) Glucose Level 157 mg/dL (70-99) H Lactic Acid Level 5.9 mmol/L (0.4-2.0) *H Calcium Level 8.4 mg/dL (8.5-10.1) L Magnesium Level 1.8 mg/dL (1.8-2.4) Total Bilirubin 3.8 mg/dL (0.2-1.0) H Aspartate Amino Transferase (AST) 77 U/L (15-37) H Alanine Aminotransferase (ALT) 58 U/L (14-59) Alkaline Phosphatase 98 U/L (46-116) Creatine Kinase 201 U/L (26-192) H Creatine Kinase MB (Mass) 2.9 ng/mL (0.0-3.6) Creatine Kinase MB Relative Index 1.4 % (0-4) Troponin I Quantitative < 0.017 ng/mL (0.000-0.055) Total Protein 5.4 g/dL (6.4-8.2) L Albumin 1.7 g/dL (3.4-5.0) L Albumin/Globulin Ratio 0.5 (1.0-1.7) L Laboratory Tests 12/19/18 13:50 Laboratory Tests 12/19/18 13:50 (MORRIS VALENZUELA DO) EKG EKG Ready by Dr. Valenzuela Sinus Tachycardia in the 140-150's (MAYCOL BLANCO) Radiology/Procedures Radiology/Procedures CXR: no acute findings (MAYCOL BLANCO) Course & Med Decision Making Course & Med Decision Making Pertinent Labs and Imaging studies reviewed. (See chart for details) Pt's tachycardia not responding due to IV fluids. Adenosine 6mg tried with no change. IV fluids continued. Pt's lactic acid elevated over 5 and after review of recent hospital stay and pt having prior MDRO UTI sensitive to Imipenem, she was started on hospital formulary Meropenem. Pt's INR also over 5. Per records she is on Xarelto. Pt admitted to ICU. Dr. Mcfarland and ID physician down to ER to see pt prior to transfer to ICU. Pt critically ill at time of admission. (MAYCOL BLANCO) Dragon Disclaimer Dragon Disclaimer This electronic medical record was generated, in whole or in part, using a voice recognition dictation system. 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 P: No If suspected infection: No Central Line Indications: Poor peripheral access, Caustic medication Maximal sterile barriers used: Mask, Sterile gown, Sterile gloves, Large sterile drape, Cap Skin Preperation: (Check all: Chlorhexidine gluconate Was skin prep dry at time of s: Yes Patient is less than 2 months: No Patient has documented/known a: Yes Facility restrictions/safety c: Yes Insertion Site: Subclavian Antimicrobial catheter used?: No Central Line catheter type: Non-tunneled, Other (specify): (triple lumen, 7 ITALIAN) Did this insertion attempt res: Yes (MORRIS VALENZUELA DO) Departure Departure Disposition: 09 ADMITTED INPATIENT Referrals: UNKNOWN PCP NAME (PCP) MAYCOL BLANCO December 21, 2018 16:33 MORRIS VALENZUELA DO December 30, 2018 05:53
--- NOTE | 2018-12-22 10:20 | EKG ---
[facility] [address] [place] [address] Test Date: 2018-12-19 Test Time: 20:00:54 Pat Name: MADELEINE HELM Department: Room: 115 1 Gender: F Graves Registration Specialist: [facility] : 1975 Requested By: ELENO JAMES Order Number: [id number] Reading MD: Alverto Araujo MD Measurements Intervals Bryant Rate: 156 P: VT: QRS: 0 QRSD: 82 T: 59 QT: 288 QTc: 472 Interpretive Statements SUPRAVENTRICULAR TACHYCARDIA Electronically Signed On 12-26-2018 13:49:48 CDT by Alverto Araujo MD
[2018-12-22 13:15] LABS: MEAN CORPUSCULAR VOLUME 120 fL (79-100)
[2018-12-22 13:17] LABS: HEMOGLOBIN 4.6 g/dL (12.0-15.5)
== END 2018-12-20 20:45 | disposition expired | DRG 871 ==
LOC: ER 13:39 → 1 WEST ICU 14:18
PROVIDERS: ADMIT Internal Medicine; ATTEND Internal Medicine
PROC: 5A1935Z Respiratory Ventilation, Less than 24 Consecutive Hours (ICD-10-PCS; principal; 2018-12-20)
PROC: 0BH17EZ Insertion of Endotracheal Airway into Trachea, Via Natural or Artificial Opening (ICD-10-PCS; 2018-12-20)
PROC: 5A12012 Performance of Cardiac Output, Single, Manual (ICD-10-PCS; 2018-12-20)
PROC: 30233K1 Transfusion of Nonautologous Frozen Plasma into Peripheral Vein, Percutaneous Approach (ICD-10-PCS; 2018-12-20)
PROC: 30233N1 Transfusion of Nonautologous Red Blood Cells into Peripheral Vein, Percutaneous Approach (ICD-10-PCS; 2018-12-20)
DX: A41.9 Sepsis, unspecified organism (principal); R65.21 Severe sepsis with septic shock; D65 Disseminated intravascular coagulation [defibrination syndrome]; J96.01 Acute respiratory failure with hypoxia; K63.1 Perforation of intestine (nontraumatic); K72.00 Acute and subacute hepatic failure without coma; G92 Toxic encephalopathy; E43 Unspecified severe protein-calorie malnutrition; N39.0 Urinary tract infection, site not specified; K92.1 Melena; N17.9 Acute kidney failure, unspecified; K72.90 Hepatic failure, unspecified without coma; K21.9 Gastro-esophageal reflux disease without esophagitis; I10 Essential (primary) hypertension; I46.9 Cardiac arrest, cause unspecified; K66.8 Other specified disorders of peritoneum; K75.81 Nonalcoholic steatohepatitis (NASH); G89.29 Other chronic pain; E66.9 Obesity, unspecified; E11.9 Type 2 diabetes mellitus without complications; E87.5 Hyperkalemia; D64.9 Anemia, unspecified; Z51.5 Encounter for palliative care; F41.9 Anxiety disorder, unspecified; Z86.718 Personal history of other venous thrombosis and embolism; Z86.711 Personal history of pulmonary embolism; Z90.49 Acquired absence of other specified parts of digestive tract; Z98.51 Tubal ligation status; Z88.5 Allergy status to narcotic agent; Z91.018 Allergy to other foods; Z87.11 Personal history of peptic ulcer disease; Z82.49 Family history of ischemic heart disease and other diseases of the circulatory system; Z79.899 Other long term (current) drug therapy; Z79.01 Long term (current) use of anticoagulants; Z98.84 Bariatric surgery status; Z68.34 Body mass index [BMI] 34.0-34.9, adult; Z95.828 Presence of other vascular implants and grafts
CPT/HCPCS: 36415; 36600; 70450; 71045; 74018; 80048; 80053; 80069; 80076; 81001; 82140; 82553; 82728; 82805; 82962; 83605; 83735; 84484; 85007; 85025; 85027; 85049; 85379; 85384; 85610; 85730; 86850; 86900; 86901; 86920; 86927; 87040; 87086; 87106; 87205; 93005; 94002; 94003; J0171; J0330; J1160; J1720; J2020; J2185; J2250; J2270; J2704; J3430; J3490; J7050; P9016; P9017; 99285-25; J7030